=== PATIENT | female | born 1940 | race Caucasian/White ===

== ENCOUNTER 2023-05-06 11:06 | Outpatient (OUT) | payer MEDICARE, OTHER, SELFPAY ==
[2023-05-06 11:26] LABS: Basophils Percent Auto 0.6 % (0.2-2.0); Eosinophils Absolute Auto 0.1 10^3/uL (0.0-0.7); Hematocrit 35.9 % (36.0-48.0); Hemoglobin 11.4 g/dL (12.0-16.0); Immature Granulocytes Abs Auto 0.01 10^3/uL (0.00-0.03); Immature Granulocytes Pct Auto 0.1 % (0.0-0.5); Lymphocytes Absolute Auto 1.1 10^3/uL (1.2-3.8); Lymphocytes Percent Auto 15.9 % (20.5-60.0); Mean Corpuscular HGB Conc 31.8 g/dL (29.9-35.2); Mean Corpuscular Hemoglobin 33.1 pg (26.7-34.0); Mean Corpuscular Volume 104.4 fL (81.0-99.0); Mean Platelet Volume 9.1 fL (9.5-13.5); Monocytes Absolute Auto 0.9 10^3/uL (0.3-0.8); Monocytes Percent Auto 13.1 % (1.7-12.0); Neutrophils Percent Auto 69.3 % (43.0-75.0); Platelet Count 165 10^3/uL (150-450); Red Blood Count 3.44 10^6/uL (4.20-5.40); Red Cell Distribution Width 14.2 % (11.0-15.0); White Blood Count 7.2 10^3/uL (4.0-11.0)
[2023-05-06 12:19] LABS: Alanine Aminotransferase 20 U/L (14-59); Albumin Globulin Ratio 0.9; Albumin Level 3.7 g/dL (3.4-5.0); Alkaline Phosphatase 108 U/L (46-116); Anion Gap 9.4; Aspartate Amino Transferase 26 U/L (15-37); BUN Creatinine Ratio 22.9; Bilirubin Total 1.1 mg/dL (0.2-1.0); Calcium 9.2 mg/dL (8.5-10.1); Carbon Dioxide 34.7 mmol/L (21.0-32.0); Chloride 99 mmol/L (98-107); Chol HDL Ratio 2.1; Cholesterol 116 mg/dL (<=200); Estimated GFR (African America 47 (>=60); Estimated GFR (Non-African Ame 39 (>=60); Globulin 4.2 g/dL; Glucose 106 mg/dL (74-106); HDL Cholesterol 55 mg/dL (40-60); LDL Cholesterol Calculated 47.8 mg/dL; Potassium 3.1 mmol/L (3.5-5.1); Sodium 140 mmol/L (136-145); TSH W/ REFLEX FT4 2.364 uIU/mL (0.358-3.740); Total Protein 7.9 g/dL (6.4-8.2); Triglycerides 66 mg/dL (<=150); VLDL CHOLESTEROL 13.2 mg/dL
== END 2023-05-06 11:07 | disposition home or self-care (01) ==
LOC: LAB 11:12
PROVIDERS: PCP Internal Medicine; Visit Provider Internal Medicine
DX: R06.02 Shortness of breath (principal); I50.32 Chronic diastolic (congestive) heart failure; R53.82 Chronic fatigue, unspecified; E78.49 Other hyperlipidemia; I11.0 Hypertensive heart disease with heart failure
CPT/HCPCS: 36415; 80053; 80061; 83880; 84443; 85025

== ENCOUNTER 2023-05-16 13:09 | Outpatient (OUT) | payer MEDICARE, OTHER, SELFPAY ==
[2023-05-16 13:28] LABS: Basophils Percent Auto 0.6 % (0.2-2.0); Eosinophils Absolute Auto 0.1 10^3/uL (0.0-0.7); Eosinophils Percent Auto 1.9 % (0.9-7.0); Hematocrit 38.5 % (36.0-48.0); Hemoglobin 12.6 g/dL (12.0-16.0); Immature Granulocytes Abs Auto 0.01 10^3/uL (0.00-0.03); Immature Granulocytes Pct Auto 0.1 % (0.0-0.5); Lymphocytes Absolute Auto 1.8 10^3/uL (1.2-3.8); Lymphocytes Percent Auto 25.6 % (20.5-60.0); Mean Corpuscular HGB Conc 32.7 g/dL (29.9-35.2); Mean Corpuscular Hemoglobin 33.3 pg (26.7-34.0); Mean Corpuscular Volume 101.9 fL (81.0-99.0); Mean Platelet Volume 9.4 fL (9.5-13.5); Monocytes Absolute Auto 0.9 10^3/uL (0.3-0.8); Monocytes Percent Auto 12.6 % (1.7-12.0); Neutrophils Absolute Auto 4.1 10^3/uL (1.4-6.5); Neutrophils Percent Auto 59.2 % (43.0-75.0); Platelet Count 203 10^3/uL (150-450); Red Blood Count 3.78 10^6/uL (4.20-5.40); Red Cell Distribution Width 13.8 % (11.0-15.0); White Blood Count 6.9 10^3/uL (4.0-11.0)
[2023-05-16 15:05] LABS: Alanine Aminotransferase 24 U/L (14-59); Albumin Globulin Ratio 0.8; Albumin Level 3.8 g/dL (3.4-5.0); Alkaline Phosphatase 125 U/L (46-116); Anion Gap 12.7; Aspartate Amino Transferase 29 U/L (15-37); BUN Creatinine Ratio 20.6; Calcium 9.5 mg/dL (8.5-10.1); Carbon Dioxide 32.1 mmol/L (21.0-32.0); Chloride 99 mmol/L (98-107); Chol HDL Ratio 2.2; Cholesterol 127 mg/dL (<=200); Estimated GFR (African America 43 (>=60); Estimated GFR (Non-African Ame 36 (>=60); Globulin 4.7 g/dL; Glucose 117 mg/dL (74-106); HDL Cholesterol 58 mg/dL (40-60); LDL Cholesterol Calculated 54.6 mg/dL; Potassium 3.8 mmol/L (3.5-5.1); Sodium 140 mmol/L (136-145); TSH W/ REFLEX FT4 1.666 uIU/mL (0.358-3.740); Total Protein 8.5 g/dL (6.4-8.2); Triglycerides 72 mg/dL (<=150); VLDL CHOLESTEROL 14.4 mg/dL
== END 2023-05-16 13:10 | disposition home or self-care (01) ==
LOC: LAB 13:09
PROVIDERS: PCP Internal Medicine; Visit Provider Internal Medicine
DX: R06.02 Shortness of breath (principal); I50.32 Chronic diastolic (congestive) heart failure; I11.0 Hypertensive heart disease with heart failure; R53.82 Chronic fatigue, unspecified; E78.49 Other hyperlipidemia
CPT/HCPCS: 36415; 80053; 80061; 83880; 84443; 85025

== ENCOUNTER 2023-05-22 08:25 | Outpatient (OUT) | payer MEDICARE, OTHER, SELFPAY ==
--- NOTE | 2023-05-22 | PCN_ITS ---
CARDIAC STRESS TEST Requesting Physician: Procedure Date: 05/22/2023 This was a Lexiscan stress test with myocardial perfusion imaging performed at the [facility] on 05/22/2023. Informed consent was obtained. An intravenous line was secured. Baseline ECG and vital signs were obtained. Lexiscan 0.4 mg was injected intravenously, followed by administration of Cardiolite. The patient then went on to obtain myocardial perfusion imaging. Resting heart rate was 85 BPM and maximum heart rate was 95 BPM. The resting blood pressure was 150/74 and maximum blood pressure was 150/74. Resting ECG showed evidence of atrial fibrillation with a controlled ventricular response. There were non-specific ST abnormalities at baseline. ECG following infusion of Lexiscan showed evidence of atrial fibrillation with occasional PVCs versus aberrantly conducted complexes. There was evidence of worsening of baseline ECG abnormalities with near [address] segment depressions noted in leads 2, 3, AVF, V5 and V6. Final ECG was comparable to baseline. IMPRESSION: 1. Equivocal stress test for Lexiscan induced ischemia due to baseline ECG abnormalities. There was slight worsening of the ST segment depressions seen with Lexiscan infusion. 2. Myocardial perfusion images will be reported separately. [facility]
--- NOTE | 2023-05-22 08:05 | NM_ITS ---
Patient Name: RICK HERNANDEZ MR#: [id number] : 1940 Exam Date: 05/22/2023 Ordering Doctor: DR HERBER ALLEN M.D. RADIOLOGY REPORT PROCEDURE: NM CARLITOS PERF SPECT REST STR COMPARISON: None. INDICATIONS: CORONARY ARTERY DISEASE, DYSPNEA TECHNIQUE: Exam Description: Stress/Rest one day protocol gated SPECT Rest Imagin.2 mCi Tc-99m Cardiolite IV on 05/22/2023 Stress Imaging 30.2 mCi Tc-99m Cardiolite IV on 05/22/2023 Exercise Protocol: 0.4 mg Lexiscan given IV Heart Rate (bpm): Rest: 85 Max: 95 PMHR: 70 Blood Pressure: Rest: 128/56 Max: 132/64 Symptoms: Rest and peak stress ECG findings were pending and the exercise portion of the study was pending per attending physician Dr. HIGGINS . For more details please see separate cardiac stress test report. FINDINGS: QUALITY OF STUDY: Excellent. PERFUSION DEFECT: None. LOCATION: N/A SIZE: N/A. SEVERITY: N/A. TYPE: N/A. WALL MOTION: Normal. LV SIZE: Normal. 63 mL. TID / TCD: None; 1.0 LVEF: Normal. Calculated EF 75%. SUMMARY: Myocardial perfusion imaging study is NORMAL. CONCLUSION: 1. No acute or reversible ischemia. 2. Suspect breast attenuation artifact affecting the anterior wall of the heart rather than mild fixed ischemia. 3. Normal wall motion, left ventricle size, and ejection fraction. Dictated by: Karsten Xavier M.D. on 05/23/2023 at 13:14 Approved by: Karsten Xavier M.D. on 05/23/2023 at 14:04
--- OUTSIDE RECORDS SUMMARY | 2023-05-22 08:28 | XMS_ITS | CCD ---
Author Organization [facility] Care Team Providers Care Manager [employer] Name Role Phone EDU ODONNELL Referring Unavailable BLAS, EDU Primary Care Unavailable ERASTO CANALES Admitting Unavailable AJ, FLORENTINO Attending Unavailable [place] Procedure Practitioner Unavailab le UNKNOWN, PROVIDER Surgeon Unavailable [place] Procedure Practitioner Unavailab le NAWRAS ALI T Surgeon Unavailable [place] Procedure Practitioner Unavailab le AJ, FLORENTINO Surgeon Unavailable KENNEDI MARSHALL Admitting Unavailable BLAS, EDU Primary Care Unavailable SELF, REFERRED Referring Unavailable MEGHAN HEAD Attending Unava ilable [place] Procedure Practitioner Unavailab le KEVON COLON Surgeon Unavailable DEAN, LOGAN K Attending Unavailable DEAN, LOGAN K Consulting Unavailable DEAN, LOGAN K Admitting Unavailable BLAS, DR SALAMANCA Primary Care Unavailable MOUKARBEL, DR CRAVEN Admitting Unavailable MOUKARBEL, DR CRAVEN Attending Unavailable MOUKARBEL, DR CRAVEN Consulting Unavailable HOUSE, DR SALAMANCA Primary Care Unavailable HOUSE, DR SALAMANCA Primary Care Unavailable MOUKARBEL, DR CRAVEN Admitting Unavailable MOUKARBEL, DR CRAVEN Attending Unavailable MOUKARBEL, DR CRAVEN Consulting Unavailable PETR LUGO Attending Unavailable PETR LUGO Consulting Unavailable PETR LUGO Admitting Unavailable HOUSE, DR SALAMANCA Primary Care Unavailable PETR LUGO Consulting Unavailable PETR LUGO Admitting Unavailable HOUSE, DR SALAMANCA Primary Care Unavailable PETR LUGO Attending Unavailable BLAS, DR SALAMANCA Primary Care Unavailable MOUKARBEL, DR CRAVEN Admitting Unavailable MOUKARBEL, DR CRAVEN Attending Unavailable HOUSE, DR SALAMANCA Primary Care Unavailable MOUKARBEL, DR CRAVEN Attending Unavailable MOUKARBEL, DR CRAVEN Admitting Unavailable DAEN, LOGAN K Attending Unavailable DEAN, LOGAN K Consulting Unavailable DEAN, LOGAN K Admitting Unavailable BLAS, DR SALAMANCA Primary Care Unavailable MISC, DR PROCTOR Attending Unavailable MISC, DR PROCTOR Consulting Unavailable MISC, DR PROCTOR Admitting Unavailable HOUSE, DR SALAMANCA Primary Care Unavailable SHAIKH QUILES Attending Unavailable HERBER ALLEN Attending Unavailable Allergies Allergy Classification Reported Allergen(s) Allergy Type Date of Onset Reaction(s) Facility (3 sources) Furosemide Drug Allergy 12-17-2018 [facility] Repository (2 sources) Penicillins; Translations: [PENICILLINS] Drug allergy (disorder) 12-29-2008 [facility] Repository (3 sources) Sulfonamides (Antibiotic); Translations: [SULFA (SULFONAMIDE ANTIBIOTICS)] Drug allergy (disorder) 12-17-2018 [facility] Repository (1 source) Penicillin Drug Allergy [facility] Repository (1 source) Furosemide; Translations: [FUROSEMIDE] Drug Allergy 02-01-2022 [facility] Repository Problems Active Problems Problem Classification Problem Date Documented Date Episodic/Chronic Cataract (8 sources) Age-related nuclear cataract, right eye; Translations: [Age-related nuclear cataract, left eye] Onset: 2 Chronic Chronic kidney disease (2 sources) Chronic kidney disease; Translations: [Chronic kidney disease, stage 3b] Onset: 4 Congestive heart failure; nonhypertensive (14 sources) Acute on chronic diastolic (congestive) heart failure; Translations: [Chronic diastolic (congestive) heart failure] Onset: 2 Chronic Coronary atherosclerosis and other heart disease (3 sources) 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; Translations: [Atherosclerotic heart disease of stebbins coronary artery with other forms of angina pectoris] Onset: 2 Chronic Coronary atherosclerosis and other heart disease (3 sources) Presence of aortocoronary bypass graft; Translations: [PRESENCE AORTOCORONARY BYPASS GRAFT] Onset: 2 Episodic Disorders of lipid metabolism (1 source) Pure hypercholesterolemia, unspecified; Translations: [PURE HYPERCHOLESTEROLEMIA UNSPEC] Onset: 2 Chronic Essential hypertension (3 sources) Essential (primary) hypertension; Translations: [ESSENTIAL PRIMARY HYPERTENSION] Onset: 2 Chronic Other lower respiratory disease (2 sources) Shortness of breath; Translations: [Shortness of breath] Onset: 4 Episodic Residual codes; unclassified (1 source) Acquired absence of both cervix and uterus; Translations: [ACQUIRED ABSENCE BOTH CERVIX AND UTERUS] Onset: 2 Episodic Unclassified (2 sources) Permanent atrial fibrillation; Translations: [Permanent atrial fibrillation] Onset: 4 Past or Other Problems Problem Classification Problem Date Documented Da te Episodic/Chronic Other and unspecified benign neoplasm (1 source) Hemangioma unspecified site; Translations: [HEMANGIOMA UNSPECIFIED SITE] Onset: 04-03-2021 Episodic Other skin disorders (4 sources) Sebaceous cyst; Translations: [SEBACEOUS CYST] Onset: 03-28-2021 Episodic Results Test Name Value Interpretation Reference Range Facility Office Visiton 05-06-2023 Follow-up visit [id number] Jenifer Hernandez [place] 1940 F Date Provider Department Center 05/06/2023 HERBER BERMUDEZ [facility] Family History Problem Relation Age of Onset Other Father Stroke Brother Family Status - Relation Status Age at Father Brother Level of Service:53876 [place] OFFICE/OUTPATIENT ESTABLISHED MOD MDM 30 MIN Normal [facility] PROF CHEM 8 (BAS METB)on Anion gap [Moles/Vol] 13.7 mmol/L Normal [facility] Comment on above: Performed By: #### B MP #### [facility] [address] [address] [address] Vega Sorensen Calcium [Mass/Vol] 9.2 mg/dL Normal 8.5-10.1 [facility] Comment on above: Performed By: #### B MP #### [facility] [address] [address] [address] Vega Sorensen Chloride [Moles/Vol] 100 mmol/L Normal 98-107 [facility] Comment on above: Performed By: #### B MP #### [facility] [address] [address] [address] Vega Sorensen CO2 [Moles/Vol] 30.2 mmol/L Normal 21.0-32.0 [facility] Comment on above: Performed By: #### B MP #### [facility] [address] [address] [address] Vega Sorensen Creatinine [Mass/Vol] 1.69 mg/dL Critically high 0.55-1.02 [facility] Comment on above: Performed By: #### B MP #### [facility] [address] [address] [address] Vega Sorensen EGFR-AF TONGAN 35 mL/min/1.73m2 Critically low >=60 [facility] Comment on above: Performed By: #### B MP #### [facility] [address] [address] [address] Vega Sorensen EGFR-NON AF TONGAN 29 mL/min/1.73m2 Critically low >=60 [facility] Comment on above: Performed By: #### B MP #### [facility] [address] [address] [address] Vega Sorensen Glucose [Mass/Vol] 162 mg/dL Critically high 74-106 [facility] Comment on above: Performed By: #### B MP #### [facility] [address] [address] [address] Vega Sorensen Potassium [Moles/Vol] 3.9 mmol/L Normal 3.5-5.1 [facility] Comment on above: Performed By: #### B MP #### [facility] [address] [address] [address] Vega Sorensen Sodium [Moles/Vol] 140 mmol/L Normal 136-145 [facility] Comment on above: Performed By: #### B MP #### [facility] [address] [address] [address] Vega Sorensen Urea nitrogen [Mass/Vol] 36.0 mg/dL Critically high 7.0-18.0 [facility] Comment on above: Performed By: #### B MP #### [facility] [address] [address] [address] Vega Sorensen Urea nitrogen/Creatinine [Mass ratio] 21.3 mg/mg Normal [facility] Comment on above: Performed By: #### B MP #### [facility] [address] [address] [address] Vega Sorensen PROF CHEM 8 (BAS METB)on Anion gap [Moles/Vol] 14.6 mmol/L Normal [facility] Comment on above: Performed By: #### B MP ####[facility] [address] [id number]. Vega Sorensen Calcium [Mass/Vol] 9.1 mg/dL Normal 8.5-10.1 [facility] Comment on above: Performed By: #### B MP ####[facility] [address] [id number]. Angelawinsome Edu Chloride [Moles/Vol] 99 mmol/L Normal 98-107 [facility] Comment on above: Performed By: #### B MP ####[facility] [address] [id number]. Vega Edu CO2 [Moles/Vol] 28.8 mmol/L Normal 21.0-32.0 [facility] Comment on above: Performed By: #### B MP ####[facility] [address] [address]Dr. Angelawinsome Edu Creatinine [Mass/Vol] 1.63 mg/dL Critically high 0.55-1.02 [facility] Comment on above: Performed By: #### B MP ####[facility] [address] [address]Dr. Angelawinsome Edu EGFR-AF TONGAN 37 mL/min/1.73m2 Critically low >=60 [facility] Comment on above: Performed By: #### B MP ####[facility] [address] [address]Dr. Vega Sorensen EGFR-NON AF TONGAN 30 mL/min/1.73m2 Critically low >=60 [facility] Comment on above: Performed By: #### B MP ####[facility] [address] [id number]. Vega Sorensen Glucose [Mass/Vol] 143 mg/dL Critically high 74-106 [facility] Comment on above: Performed By: #### B MP ####[facility] [address] [id number]. Vega Sorensen Potassium [Moles/Vol] 3.4 mmol/L Critically low 3.5-5.1 [facility] Comment on above: Performed By: #### B MP ####[facility] [address] [address]Dr. Vega Sorensen Sodium [Moles/Vol] 139 mmol/L Normal 136-145 [facility] Comment on above: Performed By: #### B MP ####[facility] [address] [address]Dr. Vega Sorensen Urea nitrogen [Mass/Vol] 38.0 mg/dL Critically high 7.0-18.0 [facility] Comment on above: Performed By: #### B MP ####[facility] [address] [address]Dr. Vega Sorensen Urea nitrogen/Creatinine [Mass ratio] 23.3 mg/mg Normal [facility] Comment on above: Performed By: #### B MP ####[facility] [address] [address]Dr. Vega Sorensen BNPon 08-18-2021 Natriuretic peptide B (Bld) [Mass/Vol] 5150.0 pg/mL Critically high <=1,800.0 [facility] Comment on above: Performed By: #### B MP, BNP #### [facility] [address] [place] [address] Dr. Vega Sorensen PROF CHEM 8 (BAS METB)on Anion gap [Moles/Vol] 12.9 mmol/L Normal [facility] Comment on above: Performed By: #### B MP, BNP #### [facility] [address] [place] [address] Dr. Vega Sorensen Calcium [Mass/Vol] 9.0 mg/dL Normal 8.5-10.1 [facility] Comment on above: Performed By: #### B MP, BNP #### [facility] [address] [place] [address] Dr. Vega Sorensen Chloride [Moles/Vol] 102 mmol/L Normal 98-107 [facility] Comment on above: Performed By: #### B MP, BNP #### [facility] [address] [address] [address] Vega Sorensen CO2 [Moles/Vol] 30.2 mmol/L Normal 21.0-32.0 [facility] Comment on above: Performed By: #### B MP, BNP #### [facility] [address] [address] [address] Vega Sorensen Creatinine [Mass/Vol] 1.90 mg/dL Critically high 0.55-1.02 [facility] Comment on above: Performed By: #### B MP, BNP #### [facility] [address] [address] [address] Vega Sorensen EGFR-AF TONGAN 31 mL/min/1.73m2 Critically low >=60 [facility] Comment on above: Performed By: #### B MP, BNP #### [facility] [address] [place] [address] Dr. Veag Sorensen EGFR-NON AF TONGAN 25 mL/min/1.73m2 Critically low >=60 [facility] Comment on above: Performed By: #### B MP, BNP #### [facility] [address] [address] [address] Vega Sorensen Glucose [Mass/Vol] 121 mg/dL Critically high 74-106 [facility] Comment on above: Performed By: #### B MP, BNP #### [facility] [address] [place] [address] Dr. Vega Sorensen Potassium [Moles/Vol] 4.1 mmol/L Normal 3.5-5.1 [facility] Comment on above: Performed By: #### B MP, BNP #### [facility] [address] [address] [address] Vega Sorensen Sodium [Moles/Vol] 141 mmol/L Normal 136-145 [facility] Comment on above: Performed By: #### B MP, BNP #### [facility] [address] [place] [address] Dr. Vega Sorensen Urea nitrogen [Mass/Vol] 34.0 mg/dL Critically high 7.0-18.0 [facility] Comment on above: Performed By: #### B MP, BNP #### [facility] [address] [address] [address] Vega Sorensen Urea nitrogen/Creatinine [Mass ratio] 17.9 mg/mg Normal [facility] Comment on above: Performed By: #### B MP, BNP #### [facility] [address] [address] [address] Veag Castaneda 03-30-2021 L ---- Specimen: [id number] Received: 03/30/21 Status: JORGE Chelly Num: [id number] Spec Type: Surgical Subm Dr: Chad Yeboah MD Tissues: A Soft Tissue/Surgical Margin-Other than Tumor,Mass,Lip or Rosita (ANTERIOR ORBIT Procedures: HE Stain, Gross/Micro L4 Patient Age/Sex Location Account Attending Physician Jenifer Hernandez 80/F [place] [id number] Chad Yeboah MD SPEC NUM: [id number] RECD: 03/30/21 STATUS: JORGE SPAULDING NUM: [id number] RACHAEL: 03/30/21 DR: Chad Yeboah MD ENTERED: 03/30/21 [facility] DR: SPEC TYPE: Surgical DEPT: S ORDERED: HE Stain, Gross/Micro L4 ORDERED: HE Stain, Gross/Micro L4 Pathological Diagnosis Right lower eyelid lesion, anterior orbitotomy: - Basal cell carcinoma, nodular type with focal cystic change, focally present at the margin. NOTE: Immunohistochemical studies of CK 7, BARBARA and special stain of PAS have been performed. The lesion is negative for CK 7, BARBARA and PAS. The histomorphology and immunoprofile support the above diagnosis. This case has been reviewed by a second pathologist, who concurs with the above diagnosis. Clinical Information Large sebaceous cyst versus hemangioma RLL Gross Description Received in formalin labeled with the patient's name, number and anterior orbitotomy RLL with biopsy are 2 perry-pink tissue fragments that measure 0.4 cm and 1.3 cm. Due to the fragmentation, the resection margin is indeterminate. Sectioning of the largest tissue fragment reveals perry-white, firm and smooth cut surfaces. Entirely submitted in one cassette labeled A1. Type of Fixative: 10% Neutral Buffered Formalin (TAMMI/YConnie) Specimen: [id number] Received: 03/30/21 Status: JORGE [place]wellgale Num: [id number] Spec Type: Surgical Subm Dr: Chad Yeboah MD Tissues: A Soft Tissue/Surgical Margin-Other than Tumor,Mass,Lip or Rosita (ANTERIOR ORBIT Procedures: HE Stain, Gross/Micro L4 Patient: Jenifer Hernandez [id number] (Continued) Specimen: [id number] Received: 03/30/21 (Continued) Signed (signature on file) Mili Peguero MD 03/31/21 1648 Specimen: [id number] Received: 03/30/21 Status: JORGE Spaulding Num: [id number] Spec Type: Surgical Subm Dr: Chad Yeboah MD Tissues: A Soft Tissue/Surgical Margin-Other than Tumor,Mass,Lip or Rosita (ANTERIOR ORBIT Procedures: HE Stain, Gross/Micro L4 Patient: Jenifer Hernandez [id number] (Continued) Specimen: [id number] Received: 03/30/21 (Continued) Microscopic Description One glass slide with H E stained material, two IHC stained slides and one PAS stained slide have been examined. The microscopic findings support the above pathologic diagnosis. ANALYTE SPECIFIC REAGENT (ASR) DISCLAIMER: The use of one or more reagents in the above tests is regulated as an analyte specific reagent (ASR). The performance characteristics were determined by the [facility]. Immunohistochemistry assays have not been validated on decalcified tissue. Results should be interpreted with caution given the possibility of false negative results on decalcified specimens. They have not been cleared by the [place] Food and Drug Administration. The FDA has determined that such clearance or approval is not necessary. CPT Codes 22802, 55824, 36818, 02897 Specimen: [id number] Received: 03/30/21 Status: JORGE [place] Num: [id number] Spec Type: Surgical Subm Dr: Chad Yeboah MD Tissues: A Soft Tissue/Surgical Margin-Other than Tumor,Mass,Lip or Rosita (ANTERIOR ORBIT Procedures: HE Stain, Gross/Micro L4 Patient: Jenifer Hernandez [id number] (Continued) (more content not included)... Normal [facility] CBC AUTO DIFFon 03-28-2021 BASO # 0.0 103/ul Normal 0.0-0.1 [facility] Comment on above: Performed By: #### C BC #### [facility] [address] [address] [address] Vega Sorensen Basophils/100 WBC (Bld) 0.5 % Normal 0.2-2.0 [facility] Comment on above: Performed By: #### C BC #### [facility] [address] [address] [address] Vega Sorensen EO # 0.1 103/ul Normal 0.0-0.7 [facility] Comment on above: Performed By: #### C BC #### [facility] [address] [address] [address] Vega Sorensen Eosinophils/100 WBC (Bld) 1.5 % Normal 0.9-7.0 [facility] Comment on above: Performed By: #### C BC #### [facility] [address] [address] [address] Vega Sorensen Erythrocyte distribution width (RBC) [Ratio] 13.7 % Normal 11.0-15.0 [facility] Comment on above: Performed By: #### C BC #### [facility] [address] [place] [address] Dr. Vega Sorensen Hematocrit (Bld) [Volume fraction] 38.1 % Normal 36.0-48.0 [facility] Comment on above: Performed By: #### C BC #### [facility] [address] [place] [address] Dr. Vega Soresnen Hemoglobin (Bld) [Mass/Vol] 12.5 g/dL Normal 12.0-16.0 [facility] Comment on above: Performed By: #### C BC #### [facility] [address] [place] [address] Dr. Vega Sorensen IG # 0.03 10e3/ul Normal 0.00-0.03 [facility] Comment on above: Performed By: #### C BC #### [facility] [address] [place] [address] Dr. Vega Sorensen IG % 0.4 % Normal 0.0-0.5 [facility] Comment on above: Performed By: #### C BC #### [facility] [address] [place] [address] Dr. Vega Sorensen LYMPH # 1.4 103/ul Normal 1.2-3.8 [facility] Comment on above: Performed By: #### C BC #### [facility] [address] [place] [address] Dr. Vega Sorensen Lymphocytes/100 WBC (Bld) 18.7 % Critically low 20.5-60.0 [facility] Comment on above: Performed By: #### C BC #### [facility] [address] [place] [address] Dr. Vega Sorensen MANUAL DIFF REQ NO Normal [facility] Comment on above: Performed By: #### C BC #### [facility] [address] [place] [address] Dr. Vega Sorensen MCH (RBC) [Entitic mass] 34.0 pg Normal 26.7-34.0 [facility] Comment on above: Performed By: #### C BC #### [facility] [address] [address] [address] Vega Sorensen MCHC (RBC) [Mass/Vol] 32.8 g/dL Normal 29.9-35.2 [facility] Comment on above: Performed By: #### C BC #### [facility] [address] [address] [address] Vega Sorensen MCV (RBC) [Entitic vol] 103.5 fL Critically high 81.0-99.0 [facility] Comment on above: Performed By: #### C BC #### [facility] [address] [address] [address] Vega Sorensen MONO # 1.0 103/ul Critically high 0.3-0.8 [facility] Comment on above: Performed By: #### C BC #### [facility] [address] [address] [address] Vega Sorensen Monocytes/100 WBC (Bld) 12.8 % Critically high 1.7-12.0 [facility] Comment on above: Performed By: #### C BC #### [facility] [address] [address] [address] Vega Sorensen NEUT # 5.0 103/ul Normal 1.4-6.5 [facility] Comment on above: Performed By: #### C BC #### [facility] [address] [address] [address] Vega Sorensen Neutrophils/100 WBC (Bld) 66.1 % Normal 43.0-75.0 [facility] Comment on above: Performed By: #### C BC #### [facility] [address] [address] [address] Vega Sorensen Platelet mean volume (Bld) [Entitic vol] 9.2 fL Critically low 9.5-13.5 [facility] Comment on above: Performed By: #### C BC #### [facility] [address] [address] [address] Vega Sorensen PLT 180 103/ul Normal 150-450 [facility] Comment on above: Performed By: #### C BC #### [facility] [address] [place] [address] Dr. Vega Sorensen RBC 3.68 106/ul Critically low 4.20-5.40 [facility] Comment on above: Performed By: #### C BC #### [facility] [address] [place] [address] Dr. Vega Sorensen WBC 7.5 103/ul Normal 4.0-11.0 [facility] Comment on above: Performed By: #### C BC #### [facility] [address] [place] [address] Dr. Vega Sroensen BNPon 03-07-2021 Natriuretic peptide B (Bld) [Mass/Vol] 2297.0 pg/mL Critically high <=1,800.0 [facility] Comment on above: Performed By: #### B MP, BNP #### [facility] [address] [place] [address] Dr. Vega Sorensen PROF CHEM 8 (BAS METB)on Anion gap [Moles/Vol] 10.0 mmol/L Normal [facility] Comment on above: Performed By: #### B MP, BNP #### [facility] [address] [place] [address] Dr. Vega Sorensen Calcium [Mass/Vol] 9.1 mg/dL Normal 8.4-10.2 [facility] Comment on above: Performed By: #### B MP, BNP #### [facility] [address] [place] [address] Dr. Vega Sorensen Chloride [Moles/Vol] 101 mmol/L Normal 98-107 [facility] Comment on above: Performed By: #### B MP, BNP #### [facility] [address] [place] [address] Dr. Vega Sorensen CO2 [Moles/Vol] 31.8 mmol/L Critically high 22.0-30.0 [facility] Comment on above: Performed By: #### B MP, BNP #### [facility] [address] [place] [address] Dr. Vega Sorensen Creatinine [Mass/Vol] 1.70 mg/dL Critically high 0.52-1.04 [facility] [facility] Comment on above: Performed By: #### B MP, BNP #### [facility] [address] [place] [address] Dr. Vega Sorensen EGFR-AF TONGAN 35 mL/min/1.73m2 Critically low >=60 [facility] Comment on above: Performed By: #### B MP, BNP #### [facility] [address] [place] [address] Dr. Vega Sorensen EGFR-NON AF TONGAN 29 mL/min/1.73m2 Critically low >=60 [facility] Comment on above: Performed By: #### B MP, BNP #### [facility] [address] [place] [address] Dr. Vega Sorensen Glucose [Mass/Vol] 160 mg/dL Critically high 74-106 [facility] Comment on above: Performed By: #### B MP, BNP #### [facility] [address] [place] [address] Dr. Vega Sorensen Potassium [Moles/Vol] 3.8 mmol/L Normal 3.4-5.0 [facility] Comment on above: Performed By: #### B MP, BNP #### [facility] [address] [place] [address] Dr. Vega Sorensen Sodium [Moles/Vol] 139 mmol/L Normal 137-145 [facility] Comment on above: Performed By: #### B MP, BNP #### [facility] [address] [place] [address] Dr. Vega Sorensen Urea nitrogen [Mass/Vol] 36.0 mg/dL Critically high 7.0-17.0 [facility] Comment on above: Performed By: #### B MP, BNP #### [facility] [address] [place] [address] Dr. Vega Sorensen Urea nitrogen/Creatinine [Mass ratio] 21.2 mg/mg Normal [facility] Comment on above: Performed By: #### B MP, BNP #### [facility] [address] [place] [address] Dr. Vega Sorensen BASIC METABOLIC PANELon 11-2 Calcium [Mass/Vol] 8.7 mg/dL Normal 8.6-10.3 [facility] Comment on above: Order Comment: No: D o not add to previous draw Performed By: #### 0 0071, 45595, 30255, 56405 #### [facility] [address] [place] [address], [place] Chloride [Moles/Vol] 95 mmol/L Low 98-107 [facility] Comment on above: Order Comment: No: D o not add to previous draw Performed By: #### 0 0071, 17212, 81254, 09429 #### [facility] [address] [place] [address], [place] CO2 [Moles/Vol] 33 mmol/L High 21-31 [facility] Comment on above: Order Comment: No: D o not add to previous draw Performed By: #### 0 0071, 36508, 15942, 92807 #### [facility] [address] [place] [address], [place] Creatinine [Mass/Vol] 1.21 mg/dL High 0.60-1.20 [facility] Comment on above: Order Comment: No: D o not add to previous draw Performed By: #### 0 0071, 32952, 99800, 81182 #### [facility] [address] [place] [address], [place] GFR/1.73 sq M predicted among blacks MDRD (S/P/Bld) [Vol rate/Area] 52 ml/min/1.73sq m Abnormal >60 [facility] Comment on above: Order Comment: No: D o not add to previous draw Result Comment: Calc ulation may not be valid for patients over 70 years Performed By: #### 0 0071, 38347, 83731, 60858 #### [facility] [address] [place] [address], [place] GFR/1.73 sq M predicted among non-blacks MDRD (S/P/Bld) [Vol rate/Area] 43 ml/min/1.73sq m Abnormal >60 [facility] Comment on above: Order Comment: No: D o not add to previous draw Result Comment: Calc ulation may not be valid for patients over 70 years Performed By: #### 0 0071, 28291, 57781, 46272 #### [facility] [address] [place] [address], [place] Glucose [Mass/Vol] 105 mg/dL High 70-100 [facility] Comment on above: Order Comment: No: D o not add to previous draw Performed By: #### 0 0071, 37631, 31703, 38614 #### [facility] [address] [place] [address], [place] Potassium [Moles/Vol] 3.2 mmol/L Low 3.5-5.1 [facility] Comment on above: Order Comment: No: D o not add to previous draw Performed By: #### 0 0071, 38457, 79862, 63677 #### [facility] [address] [place] [address], [place] Sodium [Moles/Vol] 134 mmol/L Low 136-145 [facility] Comment on above: Order Comment: No: D o not add to previous draw Performed By: #### 0 0071, 11810, 14990, 99146 #### [facility] [address] [place] [address], [place] Urea nitrogen [Mass/Vol] 22 mg/dL Normal 7-25 [facility] Comment on above: Order Comment: No: D o not add to previous draw Performed By: #### 0 0071, 00353, 61344, 07344 #### [facility] [address] [place] [address], [place] Calcium [Mass/Vol] 8.5 mg/dL Low 8.6-10.3 [facility] Comment on above: Order Comment: No: D o not add to previous draw Performed By: #### 0 0071, 19345, 82375, 26631 #### [facility] [address] [place] [address], [facility] Chloride [Moles/Vol] 95 mmol/L Low 98-107 [facility] Comment on above: Order Comment: No: D o not add to previous draw Performed By: #### 0 0071, 04609, 90721, 38373 #### [facility] [address] [place] [address], [facility] CO2 [Moles/Vol] 34 mmol/L High 21-31 [facility] Comment on above: Order Comment: No: D o not add to previous draw Performed By: #### 0 0071, 73602, 68186, 56586 #### [facility] [address] [place] [address], [facility] Creatinine [Mass/Vol] 1.15 mg/dL Normal 0.60-1.20 [facility] Comment on above: Order Comment: No: D o not add to previous draw Performed By: #### 0 0071, 72164, 31980, 38409 #### [facility] [address] [place] [address], [facility] GFR/1.73 sq M predicted among blacks MDRD (S/P/Bld) [Vol rate/Area] 55 ml/min/1.73sq m Abnormal >60 [facility] Comment on above: Order Comment: No: D o not add to previous draw Result Comment: Calc ulation may not be valid for patients over 70 years Performed By: #### 0 0071, 51803, 85508, 81940 #### [facility] [address] [place] [address], [facility] GFR/1.73 sq M predicted among non-blacks MDRD (S/P/Bld) [Vol rate/Area] 45 ml/min/1.73sq m Abnormal >60 [facility] Comment on above: Order Comment: No: D o not add to previous draw Result Comment: Calc ulation may not be valid for patients over 70 years Performed By: #### 0 0071, 63928, 89081, 34320 #### [facility] [address] [place] [address], [place] Glucose [Mass/Vol] 109 mg/dL High 70-100 [facility] Comment on above: Order Comment: No: D o not add to previous draw Performed By: #### 0 0071, 51248, 03696, 83995 #### [facility] [address] [place] [address], [place] Potassium [Moles/Vol] 2.8 mmol/L Low 3.5-5.1 [facility] Comment on above: Order Comment: No: D o not add to previous draw Performed By: #### 0 0071, 21069, 80380, 92920 #### [facility] [address] [place] [address], [facility] Sodium [Moles/Vol] 136 mmol/L Normal 136-145 [facility] Comment on above: Order Comment: No: D o not add to previous draw Performed By: #### 0 0071, 97065, 47364, 84160 #### [facility] [address] [place] [address], [place] Urea nitrogen [Mass/Vol] 26 mg/dL High 7-25 [facility] Comment on above: Order Comment: No: D o not add to previous draw Performed By: #### 0 0071, 45922, 48451, 67444 #### [facility] [address] [place] [address], [place] MAGNESIUM BLOODon 01-14-2019 Magnesium [Mass/Vol] 2.1 mg/dL Normal 1.9-2.7 [facility] Comment on above: Order Comment: No: D o not add to previous draw Performed By: #### 0 0071, 92691, 48117, 43277 #### [facility] [address] [place] [address], [place] Magnesium [Mass/Vol] 1.6 mg/dL Low 1.9-2.7 [facility] Comment on above: Order Comment: No: D o not add to previous draw Performed By: #### 0 0071, 78216, 76516, 79850 #### [facility] [address] [place] [address], [facility] BASIC METABOLIC PANELon 11-2 Calcium [Mass/Vol] 8.6 mg/dL Normal 8.6-10.3 [facility] Comment on above: Order Comment: No: D o not add to previous draw Performed By: #### 0 0071, 49614, 46943, 10159 #### [facility] [address] [place] [address], [facility] Chloride [Moles/Vol] 96 mmol/L Low 98-107 [facility] Comment on above: Order Comment: No: D o not add to previous draw Performed By: #### 0 0071, 15636, 78236, 43475 #### [facility] [address] [place] [address], [facility] CO2 [Moles/Vol] 34 mmol/L High 21-31 [facility] Comment on above: Order Comment: No: D o not add to previous draw Performed By: #### 0 0071, 99658, 20939, 40845 #### [facility] [address] [place] [address], [facility] Creatinine [Mass/Vol] 0.97 mg/dL Normal 0.60-1.20 [facility] Comment on above: Order Comment: No: D o not add to previous draw Performed By: #### 0 0071, 25331, 94420, 71213 #### [facility] [address] [place] [address], [facility] GFR/1.73 sq M predicted among blacks MDRD (S/P/Bld) [Vol rate/Area] mL/min/{1.73_m2} Normal >60 [facility] Comment on above: Order Comment: No: D o not add to previous draw Result Comment: Calc ulation may not be valid for patients over 70 years Performed By: #### 0 0071, 04564, 63493, 82893 #### [facility] [address] [place] [address], [place] GFR/1.73 sq M predicted among non-blacks MDRD (S/P/Bld) [Vol rate/Area] 55 ml/min/1.73sq m Abnormal >60 [facility] Comment on above: Order Comment: No: D o not add to previous draw Result Comment: Calc ulation may not be valid for patients over 70 years Performed By: #### 0 0071, 02492, 27622, 26436 #### [facility] [address] [place] [address], [place] Glucose [Mass/Vol] 93 mg/dL Normal 70-100 [facility] Comment on above: Order Comment: No: D o not add to previous draw Performed By: #### 0 0071, 93012, 84669, 22632 #### [facility] [address] [place] [address], [place] Potassium [Moles/Vol] 3.4 mmol/L Low 3.5-5.1 [facility] Comment on above: Order Comment: No: D o not add to previous draw Performed By: #### 0 0071, 40864, 12525, 53757 #### [facility] [address] [place] [address], [place] Sodium [Moles/Vol] 138 mmol/L Normal 136-145 [facility] Comment on above: Order Comment: No: D o not add to previous draw Performed By: #### 0 0071, 08281, 04545, 06330 #### [facility] [address] [place] [address], [place] Urea nitrogen [Mass/Vol] 23 mg/dL Normal 7-25 [facility] Comment on above: Order Comment: No: D o not add to previous draw Performed By: #### 0 0071, 66532, 41877, 01490 #### [facility] [address] CBC COMPLETE BLOOD COUNTon 03-13-2018 Erythrocyte distribution width (RBC) [Ratio] Unable to calculate Normal 11.5-15.0 [facility] Comment on above: Order Comment: No: D o not add to previous draw Performed By: #### 0 0071, 44315, 05799, 05565 #### [facility] [address] [place] [address], [facility] Hematocrit (Bld) [Volume fraction] 29.9 % Low 36.0-45.0 [facility] Comment on above: Order Comment: No: D o not add to previous draw Performed By: #### 0 0071, 15800, 03536, 27984 #### [facility] [address] [place] [address], [facility] Hemoglobin (Bld) [Mass/Vol] 9.5 g/dL Low 12.0-15.0 [facility] Comment on above: Order Comment: No: D o not add to previous draw Performed By: #### 0 0071, 23879, 32818, 77703 #### [facility] [address] [place] [address], [facility] MCH (RBC) [Entitic mass] 30.6 pg Normal 27.0-33.0 [facility] Comment on above: Order Comment: No: D o not add to previous draw Performed By: #### 0 0071, 03032, 90133, 17110 #### [facility] [address] [place] [address], [facility] MCHC (RBC) [Mass/Vol] 31.8 g/dL Low 32.0-35.0 [facility] Comment on above: Order Comment: No: D o not add to previous draw Performed By: #### 0 0071, 81454, 45712, 57305 #### [facility] [address] MCV (RBC) [Entitic vol] 96.5 fL Normal 82.0-98.0 [facility] Comment on above: Order Comment: No: D o not add to previous draw Performed By: #### 0 0071, 32248, 73773, 74047 #### [facility] [address] [facility] [place] [address], [facility] Nucleated RBC/100 WBC (Bld) [Ratio] 0 % Normal 0-0 [facility] Comment on above: Order Comment: No: D o not add to previous draw Performed By: #### 0 0071, 90984, 74613, 73611 #### [facility] [address] [place] [address], [facility] PLAT CNT 209 10*3/uL Normal 150-400 [facility] Comment on above: Order Comment: No: D o not add to previous draw Performed By: #### 0 0071, 43753, 02673, 51803 #### [facility] [address] [place] [address], [facility] RBC (Bld) [#/Vol] 3.10 10*6/uL Low 3.80-5.00 [facility] Comment on above: Order Comment: No: D o not add to previous draw Performed By: #### 0 0071, 92438, 09933, 87795 #### [facility] [address] [facility] [place] [address], [facility] WBC (Bld) [#/Vol] 7.86 10*3/uL Normal 4.00-10.60 [facility] Comment on above: Order Comment: No: D o not add to previous draw Performed By: #### 0 0071, 69757, 22466, 09621 #### [facility] [address] [place] [address], [facility] BASIC METABOLIC PANELon 11-2 Calcium [Mass/Vol] 9.3 mg/dL Normal 8.6-10.3 [facility] Comment on above: Order Comment: No: D o not add to previous draw Performed By: #### 0 0071, 52377, 98170, 43589 #### [facility] [address] [place] [address], [facility] Chloride [Moles/Vol] 103 mmol/L Normal 98-107 [facility] Comment on above: Order Comment: No: D o not add to previous draw Performed By: #### 0 0071, 39310, 60453, 42129 #### [facility] [address] [place] [address], [place] CO2 [Moles/Vol] 32 mmol/L High 21-31 [facility] Comment on above: Order Comment: No: D o not add to previous draw Performed By: #### 0 0071, 68516, 36102, 66184 #### [facility] [address] [place] [address], [place] Creatinine [Mass/Vol] 1.14 mg/dL Normal 0.60-1.20 [facility] Comment on above: Order Comment: No: D o not add to previous draw Performed By: #### 0 0071, 16353, 11630, 80641 #### [facility] [address] [place] [address], [place] GFR/1.73 sq M predicted among blacks MDRD (S/P/Bld) [Vol rate/Area] 56 ml/min/1.73sq m Abnormal >60 [facility] Comment on above: Order Comment: No: D o not add to previous draw Result Comment: Calc ulation may not be valid for patients over 70 years Performed By: #### 0 0071, 86787, 52358, 63479 #### [facility] [address] [place] [address], [place] GFR/1.73 sq M predicted among non-blacks MDRD (S/P/Bld) [Vol rate/Area] 46 ml/min/1.73sq m Abnormal >60 [facility] Comment on above: Order Comment: No: D o not add to previous draw Result Comment: Calc ulation may not be valid for patients over 70 years Performed By: #### 0 0071, 11873, 74422, 60234 #### [facility] [address] [place] [address], [place] Glucose [Mass/Vol] 93 mg/dL Normal 70-100 [facility] Comment on above: Order Comment: No: D o not add to previous draw Performed By: #### 0 0071, 18566, 33738, 65808 #### [facility] [address] [place] [address], [place] Potassium [Moles/Vol] 3.5 mmol/L Normal 3.5-5.1 [facility] Comment on above: Order Comment: No: D o not add to previous draw Performed By: #### 0 0071, 68122, 54951, 89504 #### [facility] [address] [place] [address], [place] Sodium [Moles/Vol] 142 mmol/L Normal 136-145 [facility] Comment on above: Order Comment: No: D o not add to previous draw Performed By: #### 0 0071, 42500, 54662, 83707 #### [facility] [address] [place] [address], [place] Urea nitrogen [Mass/Vol] 27 mg/dL High 7-25 [facility] Comment on above: Order Comment: No: D o not add to previous draw Performed By: #### 0 0071, 10127, 38527, 83505 #### [facility] [address] [place] [address], [place] CBC COMPLETE BLOOD COUNTon 03-11-2018 Erythrocyte distribution width (RBC) [Ratio] Unable to calculate Normal 11.5-15.0 [facility] Comment on above: Order Comment: No: D o not add to previous draw Performed By: #### 0 0071, 64834, 19656, 15750 #### [facility] [address] [place] [address], [facility] Hematocrit (Bld) [Volume fraction] 27.8 % Low 36.0-45.0 [facility] Comment on above: Order Comment: No: D o not add to previous draw Performed By: #### 0 0071, 87820, 01186, 56659 #### [facility] [address] [place] [address], [facility] Hemoglobin (Bld) [Mass/Vol] 8.4 g/dL Low 12.0-15.0 [facility] Comment on above: Order Comment: No: D o not add to previous draw Performed By: #### 0 0071, 66347, 46931, 61377 #### [facility] [address] [place] [address], [facility] MCH (RBC) [Entitic mass] 29.8 pg Normal 27.0-33.0 [facility] Comment on above: Order Comment: No: D o not add to previous draw Performed By: #### 0 0071, 93328, 86205, 55608 #### [facility] [address] [place] [address], [facility] MCHC (RBC) [Mass/Vol] 30.2 g/dL Low 32.0-35.0 [facility] Comment on above: Order Comment: No: D o not add to previous draw Performed By: #### 0 0071, 94089, 40028, 00101 #### [facility] [address] [place] [address], [facility] MCV (RBC) [Entitic vol] 98.6 fL High 82.0-98.0 [facility] Comment on above: Order Comment: No: D o not add to previous draw Performed By: #### 0 0071, 97246, 00151, 42783 #### [facility] [address] [place] [address], [facility] Nucleated RBC/100 WBC (Bld) [Ratio] 0 % Normal 0-0 [facility] Comment on above: Order Comment: No: D o not add to previous draw Performed By: #### 0 0071, 01321, 93603, 46098 #### [facility] [address] [place] [address], [facility] PLAT CNT 205 10*3/uL Normal 150-400 [facility] Comment on above: Order Comment: No: D o not add to previous draw Performed By: #### 0 0071, 22989, 50453, 52982 #### [facility] [address] [place] [address], [facility] RBC (Bld) [#/Vol] 2.82 10*6/uL Low 3.80-5.00 [facility] Comment on above: Order Comment: No: D o not add to previous draw Performed By: #### 0 0071, 22000, 83715, 06932 #### [facility] [address] [place] [address], [facility] WBC (Bld) [#/Vol] 7.35 10*3/uL Normal 4.00-10.60 [facility] Comment on above: Order Comment: No: D o not add to previous draw Performed By: #### 0 0071, 94571, 52093, 72644 #### [facility] [address] [place] [address], [facility] BASIC METABOLIC PANELon 11-2 Calcium [Mass/Vol] 9.0 mg/dL Normal 8.6-10.3 [facility] Comment on above: Order Comment: No: D o not add to previous draw Performed By: #### 0 0071, 23974, 71341, 43633 #### [facility] [address] [place] [address], [facility] Chloride [Moles/Vol] 106 mmol/L Normal 98-107 [facility] Comment on above: Order Comment: No: D o not add to previous draw Performed By: #### 0 0071, 62155, 70534, 00656 #### [facility] [address] [place] [address], [place] CO2 [Moles/Vol] 29 mmol/L Normal 21-31 [facility] Comment on above: Order Comment: No: D o not add to previous draw Performed By: #### 0 0071, 91749, 10128, 65531 #### [facility] [address] [place] [address], [place] Creatinine [Mass/Vol] 1.33 mg/dL High 0.60-1.20 [facility] Comment on above: Order Comment: No: D o not add to previous draw Performed By: #### 0 0071, 61847, 55673, 12308 #### [facility] [address] [place] [address], [place] GFR/1.73 sq M predicted among blacks MDRD (S/P/Bld) [Vol rate/Area] 47 ml/min/1.73sq m Abnormal >60 [facility] Comment on above: Order Comment: No: D o not add to previous draw Result Comment: Calc ulation may not be valid for patients over 70 years Performed By: #### 0 0071, 39812, 76060, 92504 #### [facility] [address] [place] [address], [place] GFR/1.73 sq M predicted among non-blacks MDRD (S/P/Bld) [Vol rate/Area] 39 ml/min/1.73sq m Abnormal >60 [facility] Comment on above: Order Comment: No: D o not add to previous draw Result Comment: Calc ulation may not be valid for patients over 70 years Performed By: #### 0 0071, 81398, 15478, 24324 #### [facility] [address] [place] [address], [place] Glucose [Mass/Vol] 92 mg/dL Normal 70-100 [facility] Comment on above: Order Comment: No: D o not add to previous draw Performed By: #### 0 0071, 03468, 85735, 45714 #### [facility] [address] [place] [address], [facility] Potassium [Moles/Vol] 3.9 mmol/L Normal 3.5-5.1 [facility] Comment on above: Order Comment: No: D o not add to previous draw Performed By: #### 0 0071, 14307, 11667, 78516 #### [facility] [address] [place] [address], [place] Sodium [Moles/Vol] 141 mmol/L Normal 136-145 [facility] [facility] Comment on above: Order Comment: No: D o not add to previous draw Performed By: #### 0 0071, 28944, 26673, 58298 #### [facility] [address] [place] [address], [facility] Urea nitrogen [Mass/Vol] 34 mg/dL High 7-25 [facility] Comment on above: Order Comment: No: D o not add to previous draw Performed By: #### 0 0071, 87407, 75478, 98514 #### [facility] [address] [place] [address], [facility] CBC COMPLETE BLOOD COUNTon 03-10-2018 Erythrocyte distribution width (RBC) [Ratio] ---- Normal 11.5-15.0 [facility] Comment on above: Order Comment: No: D o not add to previous draw Performed By: #### 0 0071, 12810, 46127, 61696 #### [facility] [address] [place] [address], [place] Hematocrit (Bld) [Volume fraction] 27.6 % Low 36.0-45.0 [facility] Comment on above: Order Comment: No: D o not add to previous draw Performed By: #### 0 0071, 86202, 08657, 32201 #### [facility] [address] [place] [address], [facility] Hemoglobin (Bld) [Mass/Vol] 8.2 g/dL Low 12.0-15.0 [facility] Comment on above: Order Comment: No: D o not add to previous draw Performed By: #### 0 0071, 08304, 00656, 26993 #### [facility] [address] [place] [id number], [facility] MCH (RBC) [Entitic mass] 29.6 pg Normal 27.0-33.0 [facility] Comment on above: Order Comment: No: D o not add to previous draw Performed By: #### 0 0071, 08688, 58896, 07817 #### [facility] [address] [place] [address], [facility] MCHC (RBC) [Mass/Vol] 29.7 g/dL Low 32.0-35.0 [facility] Comment on above: Order Comment: No: D o not add to previous draw Performed By: #### 0 0071, 07121, 57492, 52621 #### [facility] [address] [facility] [place] [address], [facility] MCV (RBC) [Entitic vol] 99.6 fL High 82.0-98.0 [facility] Comment on above: Order Comment: No: D o not add to previous draw Performed By: #### 0 0071, 05463, 52208, 24317 #### [facility] [address] [facility] [place] [address], [facility] Nucleated RBC/100 WBC (Bld) [Ratio] 0 % Normal 0-0 [facility] Comment on above: Order Comment: No: D o not add to previous draw Performed By: #### 0 0071, 35799, 90904, 58848 #### [facility] [address] [place] [id number], [facility] PLAT CNT 213 10*3/uL Normal 150-400 [facility] Comment on above: Order Comment: No: D o not add to previous draw Performed By: #### 0 0071, 60826, 81417, 38383 #### [facility] [address] [place] [address], [facility] RBC (Bld) [#/Vol] 2.77 10*6/uL Low 3.80-5.00 [facility] Comment on above: Order Comment: No: D o not add to previous draw Performed By: #### 0 0071, 74656, 74147, 42556 #### [facility] [address] [place] [address], [facility] WBC (Bld) [#/Vol] 7.75 10*3/uL Normal 4.00-10.60 [facility] Comment on above: Order Comment: No: D o not add to previous draw Performed By: #### 0 0071, 99828, 12704, 59756 #### [facility] [address] CBC COMPLETE BLOOD COUNTon 03-09-2018 Erythrocyte distribution width (RBC) [Ratio] 27.1 % High 11.5-15.0 [facility] Comment on above: Order Comment: No: D o not add to previous draw Performed By: #### 0 0071, 58220, 54940, 15010 #### [facility] [address] [place] [address], [facility] Hematocrit (Bld) [Volume fraction] 29.0 % Low 36.0-45.0 [facility] Comment on above: Order Comment: No: D o not add to previous draw Performed By: #### 0 0071, 38162, 33757, 41956 #### [facility] [address] [place] [address], [facility] Hemoglobin (Bld) [Mass/Vol] 8.9 g/dL Low 12.0-15.0 [facility] Comment on above: Order Comment: No: D o not add to previous draw Performed By: #### 0 0071, 39472, 21399, 69722 #### [facility] [address] MCH (RBC) [Entitic mass] 30.5 pg Normal 27.0-33.0 [facility] Comment on above: Order Comment: No: D o not add to previous draw Performed By: #### 0 0071, 82327, 68853, 48399 #### [facility] [address] [place] [address], [facility] MCHC (RBC) [Mass/Vol] 30.7 g/dL Low 32.0-35.0 [facility] Comment on above: Order Comment: No: D o not add to previous draw Performed By: #### 0 0071, 00867, 10295, 98438 #### [facility] [address] MCV (RBC) [Entitic vol] 99.3 fL High 82.0-98.0 [facility] Comment on above: Order Comment: No: D o not add to previous draw Performed By: #### 0 0071, 79543, 16843, 17006 #### [facility] [address] Nucleated RBC/100 WBC (Bld) [Ratio] 0 % Normal 0-0 [facility] Comment on above: Order Comment: No: D o not add to previous draw Performed By: #### 0 0071, 20793, 61105, 19324 #### [facility] [address] [facility] [place] [address], [facility] PLAT CNT 232 10*3/uL Normal 150-400 [facility] Comment on above: Order Comment: No: D o not add to previous draw Performed By: #### 0 0071, 22722, 39343, 99966 #### [facility] [address] [place] [address], [facility] RBC (Bld) [#/Vol] 2.92 10*6/uL Low 3.80-5.00 [facility] Comment on above: Order Comment: No: D o not add to previous draw Performed By: #### 0 0071, 65162, 86662, 60502 #### [facility] [address] [place] [address], [facility] WBC (Bld) [#/Vol] 9.20 10*3/uL Normal 4.00-10.60 [facility] Comment on above: Order Comment: No: D o not add to previous draw Performed By: #### 0 0071, 14879, 75368, 12149 #### [facility] [address] [place] [place] [address], [facility] COMP METABOLIC PANELon 01-07 Albumin [Mass/Vol] 3.7 g/dL Normal 3.5-5.7 [facility] Comment on above: Performed By: #### 0 0071, 60836, 99739, 87028 #### [facility] [address] [facility] [address] [place] [address], [facility] ALKALINE PHOSPH 107 IU/L High 34-104 [facility] Comment on above: Performed By: #### 0 0071, 83643, 91334, 60095 #### [facility] [address] [facility] [address] [facility] ALT [Catalytic activity/Vol] 16 U/L Normal 7-52 [facility] Comment on above: Performed By: #### 0 0071, 43036, 68290, 62935 #### [facility] [address] [facility] [place] [address], [facility] AST [Catalytic activity/Vol] 22 U/L Normal 13-39 [facility] Comment on above: Performed By: #### 0 0071, 07436, 66342, 93388 #### [facility] [address] [place] [address], [facility] Bilirubin [Mass/Vol] 1.1 mg/dL High 0.3-1.0 [facility] Comment on above: Performed By: #### 0 0071, 99497, 74624, 44204 #### [facility] [address] [place] [address], [place] Calcium [Mass/Vol] 8.8 mg/dL Normal 8.6-10.3 [facility] Comment on above: Performed By: #### 0 0071, 42054, 58062, 86522 #### [facility] [address] [place] [address], [place] Chloride [Moles/Vol] 107 mmol/L Normal 98-107 [facility] Comment on above: Performed By: #### 0 0071, 10349, 32052, 69681 #### [facility] [address] [place] [address], [place] CO2 [Moles/Vol] 28 mmol/L Normal 21-31 [facility] Comment on above: Performed By: #### 0 0071, 02155, 39723, 64796 #### [facility] [address] [place] [address], [place] Creatinine [Mass/Vol] 1.73 mg/dL High 0.60-1.20 [facility] Comment on above: Performed By: #### 0 0071, 10102, 11529, 73915 #### [facility] [address] [place] [address], [place] GFR/1.73 sq M predicted among blacks MDRD (S/P/Bld) [Vol rate/Area] 34 ml/min/1.73sq m Abnormal >60 [facility] Comment on above: Result Comment: Calc ulation may not be valid for patients over 70 years Performed By: #### 0 0071, 57171, 26346, 49064 #### [facility] [address] [place] [address], [place] GFR/1.73 sq M predicted among non-blacks MDRD (S/P/Bld) [Vol rate/Area] 28 ml/min/1.73sq m Abnormal >60 [facility] Comment on above: Result Comment: Calc ulation may not be valid for patients over 70 years Performed By: #### 0 0071, 71978, 80459, 05098 #### [facility] [address] [place] [address], [place] Glucose [Mass/Vol] 98 mg/dL Normal 70-100 [facility] Comment on above: Performed By: #### 0 0071, 29577, 12499, 23930 #### [facility] [address] [place] [address], [place] Potassium [Moles/Vol] 4.6 mmol/L Normal 3.5-5.1 [facility] Comment on above: Performed By: #### 0 0071, 04615, 28162, 87830 #### [facility] [address] [place] [address], [place] Protein [Mass/Vol] 6.6 g/dL Normal 6.0-8.3 [facility] Comment on above: Performed By: #### 0 0071, 08806, 21230, 44223 #### [facility] [address] [place] [address], [place] Sodium [Moles/Vol] 141 mmol/L Normal 136-145 [facility] Comment on above: Performed By: #### 0 0071, 63559, 70882, 57105 #### [facility] [address] [place] [address], [place] Urea nitrogen [Mass/Vol] 42 mg/dL High 7-25 [facility] Comment on above: Performed By: #### 0 0071, 73220, 30825, 84640 #### [facility] [address] [place] [address], [place] Cardiovascular Lab Reporton 01-07-2019 Cardiovascular Lab Report [facility] #: [id number] Physician: Kevon Trejo Abd Department of MD [facility] Service Date: 01/07/2019 Division of Birthdate: 1940 Cardiology Room #: [id number] Adult Cardiovascular Services [facility] [address] [place] [address] Cardiovascular Laboratory Report COUNTER CLERK: Dr. Dedrick Washington, cardiographer. INDICATION: This is an 78-year-old female with past medical history of diastolic heart failure, pulmonary hypertension, hypertension, paroxysmal atrial fibrillation, on Xarelto, who presented with bradycardia and hypotension secondary to overdose. The patient has a worsening renal function during her current hospital stay. She was seen by Nephrology team and her diuretic has been on hold. She also has worsening INR. She has been started on IV fluids. The patient seems to be hypervolemic. She is brought now to the cardiac catheterization lab for further evaluation. PROCEDURE IN DETAIL: An informed consent was obtained from the patient after explaining the benefits and risks of the procedure which include, but not limited to , myocardial infarction, stroke, aortic dissection, infection, bleeding, renal failure, temporary or permanent hemodialysis, temporary or permanent pacemaker, emergent bypass surgery, and pericardial tamponade. The patient was also notified that a cardiographer will be assisting during the course of the procedure. Next, the patient was brought to the cardiac catheterization suite. Her right side of the neck was prepped and draped in the usual sterile fashion. A time-out was obtained to verify the patient as well as the time and site of the procedure. We used Versed and fentanyl for sedation. Then, I used lidocaine 5 mL to anesthetize the area over the right internal jugular vein. Using ultrasound guidance, we obtained access to the right IJ. Next, using the ultrasound guidance and a modified Seldinger technique, I obtained an access to the right internal jugular vein. Then, [place] sheath was inserted 6-Swedish x 11 cm. Then, under fluoroscopy guidance, I passed the Thompson catheter to the wedge position and we measured the pulmonary capillary wedge pressure, PA pressure, right ventricular pressure, and right atrial pressure. We also obtained a sample from pulmonary artery for calculation of cardiac output and cardiac index by Bacilio principle. Then, we removed the catheter and sheath and we achieved optimal hemostasis by manual compression. She tolerated the procedure without any complications. She was transferred back to the medical floor in stable condition. FINDINGS: Pulmonary wedge pressure 50/54 with mean of 48 mmHg, PA pressure 72/30 with mean PA pressure of 49 mmHg, right ventricular pressure 79/13 with right ventricular end-diastolic pressure of 25 mmHg, right atrial pressure 27/33 with mean of 29 mmHg. PA pressure 70%, PA O2 pressure 97%. Cardiac output 8.89 and cardiac index 4.42 L/minute per sq m. Pulmonary vascular resistance 9 dynes. CONCLUSION: After reviewing the hemodynamics, the patient seems to be in severe decompensated heart failure with severely elevated wedge pressure and severely elevated right-sided pressures. She will need more aggressive diuresis. Stop the IV fluids. I spoke to the consult team and nephrology team. She has normal cardiac output and cardiac index and therefore inotropes are not indicated at this time. Electronically Signed by: Kevon Serrano MD 01/08/2019 10:24 A Kevon Serrano MD Date Dict: 01/07/2019/03:32 P/Kevon Serrano MD Date Trans: 01/07/2019 03:58 P/mmo [id number] cc: Edu Odonnell D.O. [facility] CampusDanny Roger [place] [address] Normal [facility] MAGNESIUM BLOODon 01-07-2019 Magnesium [Mass/Vol] 1.9 mg/dL Normal 1.9-2.7 [facility] Comment on above: Order Comment: No: D o not add to previous draw Performed By: #### 0 0071, 63095, 62227, 81771 #### [facility] [address] [facility] [place] [address], [facility] PHOSPHORUS BLOODon 9 Phosphate [Mass/Vol] 2.8 mg/dL Normal 2.5-5.0 [facility] Comment on above: Order Comment: No: D o not add to previous draw Performed By: #### 0 0071, 30207, 87429, 94647 #### [facility] [address] APTTon 01-06-2019 aPTT Coag (Bld) [Time] 33.6 s Normal 25.0-35.0 [facility] Comment on above: Order Comment: No: D o not add to previous draw Result Comment: ALL RESULTS MUST BE INTERPRETED WITH RESPECT TO BLOOD DRAWING ARTIFACT OR DILUTION ERROR OF ANTICOAGULANT AT THE TIME OF SAMPLING. THE APTT SHOULD NOT BE USED TO MONITOR UNFRACTIONATED HEPARIN THERAPY, THIS LABORATORY NO LONGER HAS AN ESTABLISHED THERAPEUTIC RANGE BASED ON THE APTT. IT IS RECOMMENDED THAT THE [facility] - HEPARIN ASSAY (ANTI-XA ACTIVITY) BE USED FOR THIS PURPOSE. Performed By: #### 0 0071, 09286, 44404, 53980 #### [facility] [address] [facility]. [address] BASIC METABOLIC PANELon 12-19 Calcium [Mass/Vol] 8.8 mg/dL Normal 8.6-10.3 [facility] Comment on above: Order Comment: No: D o not add to previous draw Performed By: #### 0 0071, 40219, 13274, 90204 #### [facility] [address] [facility] [place] [address], [facility] Chloride [Moles/Vol] 103 mmol/L Normal 98-107 [facility] Comment on above: Order Comment: No: D o not add to previous draw Performed By: #### 0 0071, 17663, 54758, 25837 #### [facility] [address] [facility] [place] [address], [facility] CO2 [Moles/Vol] 24 mmol/L Normal 21-31 [facility] Comment on above: Order Comment: No: D o not add to previous draw Performed By: #### 0 0071, 36995, 64861, 05776 #### [facility] [address] [place] [address], [facility] Creatinine [Mass/Vol] 3.14 mg/dL High 0.60-1.20 [facility] Comment on above: Order Comment: No: D o not add to previous draw Performed By: #### 0 0071, 51428, 57103, 31004 #### [facility] [address] [place] [address], [place] GFR/1.73 sq M predicted among blacks MDRD (S/P/Bld) [Vol rate/Area] 17 ml/min/1.73sq m Abnormal >60 [facility] Comment on above: Order Comment: No: D o not add to previous draw Result Comment: Calc ulation may not be valid for patients over 70 years Performed By: #### 0 0071, 20332, 23055, 51811 #### [facility] [address] [place] [address], [facility] GFR/1.73 sq M predicted among non-blacks MDRD (S/P/Bld) [Vol rate/Area] 14 ml/min/1.73sq m Abnormal >60 [facility] Comment on above: Order Comment: No: D o not add to previous draw Result Comment: Calc ulation may not be valid for patients over 70 years Performed By: #### 0 0071, 05948, 25546, 36470 #### [facility] [address] [place] [address], [facility] Glucose [Mass/Vol] 123 mg/dL High 70-100 [facility] Comment on above: Order Comment: No: D o not add to previous draw Performed By: #### 0 0071, 56601, 74960, 38647 #### [facility] [address] [place] [address], [place] Potassium [Moles/Vol] 4.5 mmol/L Normal 3.5-5.1 [facility] Comment on above: Order Comment: No: D o not add to previous draw Performed By: #### 0 0071, 95467, 32572, 37562 #### [facility] [address] [place] [address], [place] Sodium [Moles/Vol] 135 mmol/L Low 136-145 [facility] Comment on above: Order Comment: No: D o not add to previous draw Performed By: #### 0 0071, 40376, 92841, 26397 #### [facility] [address] Urea nitrogen [Mass/Vol] 60 mg/dL High 7-25 [facility] Comment on above: Order Comment: No: D o not add to previous draw Performed By: #### 0 0071, 66109, 11565, 81151 #### [facility] [address] [place] [address], [facility] CBC W/DIFFon 01-06-2019 ABS BASOPHILS 0.0 10*3/uL Normal 0.0-0.2 [facility] Comment on above: Order Comment: No: D o not add to previous draw Performed By: #### 0 0071, 66847, 09476, 56647 #### [facility] [address] ABS IMM GRANS 0.1 10*3/uL Normal 0.0-0.2 [facility] Comment on above: Order Comment: No: D o not add to previous draw Performed By: #### 0 0071, 45706, 40192, 95759 #### [facility] [address] [facility] ABS NEUTROPHILS 6.9 10*3/uL Normal 1.6-7.6 [facility] Comment on above: Order Comment: No: D o not add to previous draw Performed By: #### 0 0071, 24022, 93379, 18836 #### [facility] [address] [place] [address], [facility] ACANTHOCYTES Slight Normal [facility] Comment on above: Order Comment: No: D o not add to previous draw Performed By: #### 0 0071, 75184, 60911, 25421 #### [facility] [address] [place] [address], [facility] ANISO Marked Normal [facility] Comment on above: Order Comment: No: D o not add to previous draw Performed By: #### 0 0071, 26909, 99117, 61290 #### [facility] [address] [place] [address], [facility] Basophils/100 WBC (Bld) 0.2 % Normal 0.0-1.0 [facility] Comment on above: Order Comment: No: D o not add to previous draw Performed By: #### 0 0071, 73639, 86795, 90880 #### [facility] [address] [place] [address], [facility] ELLIPTOCYTES Slight Normal [facility] Comment on above: Order Comment: No: D o not add to previous draw Performed By: #### 0 0071, 55144, 72332, 87718 #### [facility] [address] [place] [address], [facility] Eosinophils (Bld) [#/Vol] 0.2 10*3/uL Normal 0.0-0.5 [facility] Comment on above: Order Comment: No: D o not add to previous draw Performed By: #### 0 0071, 90071, 03700, 03745 #### [facility] [address] [place] [address], [facility] Eosinophils/100 WBC (Bld) 1.6 % Normal 0.0-6.0 [facility] Comment on above: Order Comment: No: D o not add to previous draw Performed By: #### 0 0071, 50344, 36067, 66064 #### [facility] [address] [place] [address], [facility] Erythrocyte distribution width (RBC) [Ratio] 27.6 % High 11.5-15.0 [facility] Comment on above: Order Comment: No: D o not add to previous draw Performed By: #### 0 0071, 64218, 83970, 51991 #### [facility] [address] Hematocrit (Bld) [Volume fraction] 27.2 % Low 36.0-45.0 [facility] Comment on above: Order Comment: No: D o not add to previous draw Performed By: #### 0 0071, 28522, 52064, 50806 #### [facility] [address] [place] [address], [facility] Hemoglobin (Bld) [Mass/Vol] 8.2 g/dL Low 12.0-15.0 [facility] Comment on above: Order Comment: No: D o not add to previous draw Performed By: #### 0 0071, 47213, 44486, 97644 #### [facility] [address] [facility] [place] [address], [facility] IMMATURE GRANS 0.5 % Normal 0.0-1.0 [facility] Comment on above: Order Comment: No: D o not add to previous draw Performed By: #### 0 0071, 20553, 76196, 25880 #### [facility] [address] [facility] [place] [place] [address], [facility] Lymphocytes (Bld) [#/Vol] 1.2 10*3/uL Normal 1.2-4.0 [facility] Comment on above: Order Comment: No: D o not add to previous draw Performed By: #### 0 0071, 39183, 33382, 52045 #### [facility] [address] [facility] [place] [address], [facility] Lymphocytes/100 WBC (Bld) 12.5 % Low 20.0-45.0 [facility] Comment on above: Order Comment: No: D o not add to previous draw Performed By: #### 0 0071, 10252, 29192, 87486 #### [facility] [address] [place] [address], [facility] MCH (RBC) [Entitic mass] 29.5 pg Normal 27.0-33.0 [facility] Comment on above: Order Comment: No: D o not add to previous draw Performed By: #### 0 0071, 17395, 61458, 08667 #### [facility] [address] [place] [address], [facility] MCHC (RBC) [Mass/Vol] 30.1 g/dL Low 32.0-35.0 [facility] Comment on above: Order Comment: No: D o not add to previous draw Performed By: #### 0 0071, 00548, 03028, 68838 #### [facility] [address] [place] [address], [facility] MCV (RBC) [Entitic vol] 97.8 fL Normal 82.0-98.0 [facility] Comment on above: Order Comment: No: D o not add to previous draw Performed By: #### 0 0071, 35843, 39907, 46623 #### [facility] [address] [facility] [place] [address], [facility] Monocytes (Bld) [#/Vol] 1.4 10*3/uL High 0.1-1.0 [facility] Comment on above: Order Comment: No: D o not add to previous draw Performed By: #### 0 0071, 23881, 90738, 92775 #### [facility] [address] [facility] [place] [address], [facility] MONOS 14.5 % High 5.0-12.0 [facility] Comment on above: Order Comment: No: D o not add to previous draw Performed By: #### 0 0071, 34388, 08145, 18482 #### [facility] [address] [place] [address], [facility] Neutrophils/100 WBC (Bld) 70.7 % Normal 40.0-72.0 [facility] Comment on above: Order Comment: No: D o not add to previous draw Performed By: #### 0 0071, 15692, 46639, 86587 #### [facility] [address] [place] [address], [facility] Nucleated RBC/100 WBC (Bld) [Ratio] 0 % Normal 0-0 [facility] Comment on above: Order Comment: No: D o not add to previous draw Performed By: #### 0 0071, 75860, 11844, 39886 #### [facility] [address] [place] [address], [facility] OVALOCYTES Slight Normal [facility] Comment on above: Order Comment: No: D o not add to previous draw Performed By: #### 0 0071, 94093, 68001, 96354 #### [facility] [address] [place] [address], [facility] PLAT CNT 236 10*3/uL Normal 150-400 [facility] Comment on above: Order Comment: No: D o not add to previous draw Performed By: #### 0 0071, 30890, 02552, 02027 #### [facility] [address] [place] [address], [facility] POIK Moderate Normal [facility] Comment on above: Order Comment: No: D o not add to previous draw Performed By: #### 0 0071, 54365, 53980, 21147 #### [facility] [address] [place] [address], [facility] POLY Slight Normal [facility] Comment on above: Order Comment: No: D o not add to previous draw Performed By: #### 0 0071, 15326, 87717, 74532 #### [facility] [address] [place] [address], [place] RBC (Bld) [#/Vol] 2.78 10*6/uL Low 3.80-5.00 [facility] Comment on above: Order Comment: No: D o not add to previous draw Performed By: #### 0 0071, 17221, 71589, 15689 #### [facility] [address] SCHISTOCYTES Slight Normal [facility] Comment on above: Order Comment: No: D o not add to previous draw Performed By: #### 0 0071, 42032, 94417, 28706 #### [facility] [address] [place] [address], [facility] WBC (Bld) [#/Vol] 9.76 10*3/uL Normal 4.00-10.60 [facility] Comment on above: Order Comment: No: D o not add to previous draw Performed By: #### 0 0071, 68472, 65782, 62387 #### [facility] [address] CPKon 01-06-2019 CK [Catalytic activity/Vol] 26 U/L Low 30-223 [facility] Comment on above: Performed By: #### 0 0071, 45835, 56310, 50615 #### [facility] [address] FERRITINon 01-06-2019 Ferritin [Mass/Vol] 288 ng/mL Normal 11-307 [facility] Comment on above: Performed By: #### 0 0071, 11097, 21272, 57510 #### [facility] [address] MAGNESIUM BLOODon 01-06-2019 Magnesium [Mass/Vol] 2.1 mg/dL Normal 1.9-2.7 [facility] Comment on above: Order Comment: No: D o not add to previous draw Performed By: #### 0 0071, 38610, 21329, 69009 #### [facility] [address] [place] [address], [facility] PHOSPHORUS BLOODon 9 Phosphate [Mass/Vol] 3.9 mg/dL Normal 2.5-5.0 [facility] Comment on above: Order Comment: No: D o not add to previous draw Performed By: #### 0 0071, 16410, 13061, 03331 #### [facility] [address] [place] [address], [facility] PROTHROMBIN TIMEon 9 INR Coag (PPP) [Relative time] 2.22 {INR} High 0.91-1.16 [facility] Comment on above: Order Comment: No: D o not add to previous draw Result Comment: ACCC P RECOMMENDED INR FOR WARFARIN THERAPY ------- ------- CONDITION INR PROPHYLAXIS OF VENOUS THROMBOSIS 2-3 (HIGH-RISK SURGERY) TREATMENT OF VENOUS THROMBOSIS 2-3 TREATMENT OF PULMONARY EMBOLISM 2-3 PREVENTION OF SYSTEMIC EMBOLISM: 2-3 ACUTE MYOCARDIAL INFARCTION TISSUE HEART VALVES VALVULAR HEART DISEASE ATRIAL FIBRILLATION RECURRENT SYSTEMIC EMBOLISM MECHANICAL HEART VALVE 2.5-3.5 FROM: ORAL ANTICOAGULANTS. MECHANISM OF ACTION, CLINICAL EFFECTIVENESS, AND OPTIMAL THERAPEUTIC RANGE. CHEST 1995;108:231S-246S. Performed By: #### 0 0071, 99927, 06325, 17661 #### [facility] [address] [place] [address], [facility] PT Coag (PPP) [Time] 25.0 s High 12.3-14.8 [facility] Comment on above: Order Comment: No: D o not add to previous draw Result Comment: ALL RESULTS MUST BE INTERPRETED WITH RESPECT TO BLOOD DRAWING ARTIFACT OR DILUTION ERROR OF ANTICOAGULANT AT THE TIME OF SAMPLING. Performed By: #### 0 0071, 76855, 76839, 57468 #### [facility] [address] [place] [address], [facility] TIBC- INCLUDES IRONon 2018 FE SATURATION 25 % Normal 20-50 [facility] Comment on above: Performed By: #### 0 0071, 86849, 13165, 98398 #### [facility] [address] [place] [address], [facility] Iron [Mass/Vol] 87 ug/dL Normal 50-212 [facility] Comment on above: Performed By: #### 0 0071, 07198, 43195, 85558 #### [facility] [address] [place] [address], [facility] TIBC 345 mcg/dL Normal 250-450 [facility] Comment on above: Performed By: #### 0 0071, 46702, 79103, 98141 #### [facility] [address] [place] [address], [facility] UIBC 258 mcg/dL Normal 155-355 [facility] Comment on above: Performed By: #### 0 0071, 67560, 93586, 00542 #### [facility] [address] TRANSFERRINon 01-06-2019 Transferrin [Mass/Vol] 282 mg/dL Normal 203-362 [facility] Comment on above: Performed By: #### 0 0071, 77528, 77985, 68041 #### [facility] [address] [facility] [place] [address], [facility] ANAon 01-05-2019 Nuclear Ab IF (S) [Titer] <1:40 Normal <1:40,1:40 [facility] Comment on above: Order Comment: No: D o not add to previous draw Performed By: #### 0 0071, 71290, 04414, 73616 #### [facility] [address] [place] [address], [facility] BASIC METABOLIC PANELon 12-19 Calcium [Mass/Vol] 8.5 mg/dL Low 8.6-10.3 [facility] Comment on above: Order Comment: No: D o not add to previous draw Performed By: #### 5 0608 #### [facility] [address] [place] [address], [place] Chloride [Moles/Vol] 103 mmol/L Normal 98-107 [facility] Comment on above: Order Comment: No: D o not add to previous draw Performed By: #### 5 0608 #### [facility] [address] [place] [address], [place] CO2 [Moles/Vol] 24 mmol/L Normal 21-31 [facility] Comment on above: Order Comment: No: D o not add to previous draw Performed By: #### 5 0608 #### [facility] [address] [place] [address], [place] Creatinine [Mass/Vol] 2.90 mg/dL High 0.60-1.20 [facility] Comment on above: Order Comment: No: D o not add to previous draw Performed By: #### 5 0608 #### [facility] [address] [place] [address], [place] GFR/1.73 sq M predicted among blacks MDRD (S/P/Bld) [Vol rate/Area] 19 ml/min/1.73sq m Abnormal >60 [facility] Comment on above: Order Comment: No: D o not add to previous draw Result Comment: Calc ulation may not be valid for patients over 70 years Performed By: #### 5 0608 #### [facility] [address] [place] [address], [place] GFR/1.73 sq M predicted among non-blacks MDRD (S/P/Bld) [Vol rate/Area] 16 ml/min/1.73sq m Abnormal >60 [facility] Comment on above: Order Comment: No: D o not add to previous draw Result Comment: Calc ulation may not be valid for patients over 70 years Performed By: #### 5 0608 #### [facility] [address] [place] [address], [place] Glucose [Mass/Vol] 142 mg/dL High 70-100 [facility] Comment on above: Order Comment: No: D o not add to previous draw Performed By: #### 5 0608 #### [facility] [address] [place] [address], [facility] Potassium [Moles/Vol] 4.6 mmol/L Normal 3.5-5.1 [facility] Comment on above: Order Comment: No: D o not add to previous draw Performed By: #### 5 0608 #### [facility] [address] [facility] Sodium [Moles/Vol] 134 mmol/L Low 136-145 [facility] Comment on above: Order Comment: No: D o not add to previous draw Performed By: #### 5 0608 #### [facility] [address] [facility]. [address] Urea nitrogen [Mass/Vol] 53 mg/dL High 7-25 [facility] Comment on above: Order Comment: No: D o not add to previous draw Performed By: #### 5 0608 #### [facility] [address] BNP (B-TYPE NATRIURETIC PEPT LIVAN)on 01-05-2019 Natriuretic peptide B (Bld) [Mass/Vol] 616 pg/mL High 0-100 [facility] Comment on above: Order Comment: No: D o not add to previous draw Result Comment: Give n the appropriate clinical setting a BNP result of >100 pg/mL indicates congestive heart failure. Performed By: #### 5 0608 #### [facility] [address] [facility] [place] [address], [facility] CBC W/DIFFon 01-05-2019 ABS BASOPHILS 0.0 10*3/uL Normal 0.0-0.2 [facility] Comment on above: Performed By: #### 5 0608 #### [facility] [address] [facility]. [address] ABS IMM GRANS 0.1 10*3/uL Normal 0.0-0.2 [facility] Comment on above: Performed By: #### 5 0608 #### [facility] [address] [facility] [place] [address], [facility] ABS NEUTROPHILS 7.6 10*3/uL Normal 1.6-7.6 [facility] Comment on above: Performed By: #### 5 0608 #### [facility] [address] ACANTHOCYTES Slight Normal [facility] Comment on above: Performed By: #### 5 0608 #### [facility] [address] ANISO Marked Normal [facility] Comment on above: Performed By: #### 5 0608 #### [facility] [address] [facility]. [address] Basophils/100 WBC (Bld) 0.2 % Normal 0.0-1.0 [facility] Comment on above: Performed By: #### 5 0608 #### [facility] [address] THERESA CELLS Slight Normal [facility] Comment on above: Performed By: #### 5 0608 #### [facility] [address] [facility]. [address] ELLIPTOCYTES Slight Normal [facility] Comment on above: Performed By: #### 5 0608 #### [facility] [address] [place] [address], [facility] Eosinophils (Bld) [#/Vol] 0.0 10*3/uL Normal 0.0-0.5 [facility] Comment on above: Performed By: #### 5 0608 #### [facility] [address] [facility] [place] [address], [facility] Eosinophils/100 WBC (Bld) 0.2 % Normal 0.0-6.0 [facility] Comment on above: Performed By: #### 5 0608 #### [facility] [address] [facility] Erythrocyte distribution width (RBC) [Ratio] 27.2 % High 11.5-15.0 [facility] Comment on above: Result Comment: Resu lt changed by [email or web address] on 01/05/2019 02:09. The previous value was ----. Performed By: #### 5 0608 #### [facility] [address] Hematocrit (Bld) [Volume fraction] 27.5 % Low 36.0-45.0 [facility] Comment on above: Result Comment: Resu lt changed by [email or web address] on 01/05/2019 02:09. The previous value was 27.7. Performed By: #### 5 0608 #### [facility] [address] [facility] Hemoglobin (Bld) [Mass/Vol] 8.2 g/dL Low 12.0-15.0 [facility] Comment on above: Performed By: #### 5 0608 #### [facility] [address] [facility] [place] [address], [facility] IMMATURE GRANS 0.6 % Normal 0.0-1.0 [facility] Comment on above: Performed By: #### 5 0608 #### [facility] [address] [facility] [place] [address], [facility] Lymphocytes (Bld) [#/Vol] 0.9 10*3/uL Low 1.2-4.0 [facility] Comment on above: Performed By: #### 5 0608 #### [facility] [address] [place] [address], [facility] Lymphocytes/100 WBC (Bld) 9.0 % Low 20.0-45.0 [facility] Comment on above: Performed By: #### 5 0608 #### [facility] [address] [place] [address], [facility] MCH (RBC) [Entitic mass] 29.3 pg Normal 27.0-33.0 [facility] Comment on above: Result Comment: Resu lt changed by [email or web address] on 01/05/2019 02:09. The previous value was 29.1. Performed By: #### 5 0608 #### [facility] [address] MCHC (RBC) [Mass/Vol] 29.8 g/dL Low 32.0-35.0 [facility] Comment on above: Result Comment: Resu lt changed by [email or web address] on 01/05/2019 02:09. The previous value was 29.6. Performed By: #### 5 0608 #### [facility] [address] MCV (RBC) [Entitic vol] 98.2 fL High 82.0-98.0 [facility] Comment on above: Performed By: #### 5 0608 #### [facility] [address] [place] [address], [facility] Monocytes (Bld) [#/Vol] 1.1 10*3/uL High 0.1-1.0 [facility] Comment on above: Performed By: #### 5 0608 #### [facility] [address] MONOS 11.8 % Normal 5.0-12.0 [facility] Comment on above: Performed By: #### 5 0608 #### [facility] [address] [place] [address], [facility] Neutrophils/100 WBC (Bld) 78.2 % High 40.0-72.0 [facility] Comment on above: Performed By: #### 5 0608 #### [facility] [address] [facility] [place] [address], [facility] Nucleated RBC/100 WBC (Bld) [Ratio] 0 % Normal 0-0 [facility] Comment on above: Performed By: #### 5 0608 #### [facility] [address] [facility] [place] [address], [facility] OTHER 1 Checked by Los navarro M.D. Normal [facility] Comment on above: Result Comment: Resu lt changed by EMEECE on 01/05/2019 09:19. The previous value was Preliminary report; verified report to follow. Performed By: #### 5 0608 #### [facility] [address] [facility]. [address] OVALOCYTES Slight Normal [facility] Comment on above: Performed By: #### 5 0608 #### [facility] [address] [facility] [place] [address], [facility] PLAT CNT 263 10*3/uL Normal 150-400 [facility] Comment on above: Performed By: #### 5 0608 #### [facility] [address] [facility] [place] [address], [facility] POIK Moderate Normal [facility] Comment on above: Performed By: #### 5 0608 #### [facility] [address] [facility] [place] [address], [facility] RBC (Bld) [#/Vol] 2.80 10*6/uL Low 3.80-5.00 [facility] Comment on above: Result Comment: Resu lt changed by [email or web address] on 01/05/2019 02:09. The previous value was 2.82. Performed By: #### 5 0608 #### [facility] [address] [facility] [place] [address], [facility] SCHISTOCYTES Slight Normal [facility] Comment on above: Performed By: #### 5 0608 #### [facility] [address] WBC (Bld) [#/Vol] 9.70 10*3/uL Normal 4.00-10.60 [facility] Comment on above: Result Comment: Resu lt changed by [email or web address] on 01/05/2019 02:09. The previous value was 9.82. Performed By: #### 5 0608 #### [facility] [address] [facility] [place] [address], [facility] COMPLEMENT 3on 01-05-2019 COMPLEMENT 3 89 mg/dL Normal 79-152 [facility] Comment on above: Order Comment: No: D o not add to previous draw Performed By: #### 0 0071, 08161, 35578, 37915 #### [facility] [address] [place] [address], [facility] COMPLEMENT 4on 01-05-2019 COMPLEMENT 4 16 mg/dL Normal 16-38 [facility] Comment on above: Order Comment: No: D o not add to previous draw Performed By: #### 0 0071, 52663, 35546, 70049 #### [facility] [address] CHEST WO CONTRASTon 01-05 CT CHEST WO CONTRAST [facility] Department of Radiology [address] [place] [id number] == Patient Name: JENIFER HERNANDEZ : 1940 Sex: F Age: Race: NA Pt. Location: [id number] Patient Status: I Ordered Date: 01/05/2019 8:15:00 AM Completed Date: 01/05/2019 11:36 AM Requesting Provider: AZUL PIPER Attending Provider: KENNEDI MARSHALL Report Copy To: Signs & Symptoms: Other History: See Comments Comments: R/O Interstitial Lung Disease, Prior echo with possible pulm htn. Exam: CT CHEST WO CONTRAST == CT CHEST WO CONTRAST 01/05/2019 11:36 AM EST SIGN AND SYMPTOMS: Other TECHNOLOGIST COMMENTS: extreme sob x a few weeks QUESTIONS PER RADIOLOGIST: R/O Interstitial Lung Disease, Prior echo with possible pulm htn. PROTOCOL: Axial CT images of the chest were obtained without IV contrast. TECHNIQUE: Multidetector CT axial slices of the chest were obtained without IV contrast. Multiplanar reformats were performed and viewed on a separate workstation and reviewed to further define anatomy and possible pathology.Appropriate CT dose lowering techniques were utilized. COMPARISON: Chest x-ray from December 17, 2018. FINDINGS: Lower neck: Visualized part of the Thyroid gland within normal limits, no supraclavicle adenopathy. Vessels: Pulmonary arteries appeared grossly unremarkable considering noncontrast technique. Mild to moderate atherosclerotic changes in the aorta. and coronary arteries. 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 Heart: Mild cardiomegaly. No pericardial effusion. Airways: Within normal limits Lungs: Interstitial thickening bilaterally with scattered areas of subtle groundglass opacities suggesting pulmonary congestive changes. Bilateral compressive atelectasis in the lower lobes. Pleura: Bilateral pleural effusion; moderate on the right and small left. Chest Wall: Diffuse anasarca along the chest wall. Upper Abdomen: Significant vascular calcification in the abdominal aorta and branches. Bones: Bony spurring in the thoracic spine consistent with spondylosis with type III discogenic sclerosis in the lower thoracic and upper lumbar spine. Sternotomy wires from prior CABG procedure. Multiple lymph nodes in the left axilla worrisome for adenopathy. IMPRESSION: Findings are suggestive of decompensated CHF with cardiomegaly, bilateral effusions; right more than left with adjacent compressive atelectasis and congestive changes in both lungs with early pulmonary edema Evidence of prior CABG procedure. Nonspecific lymph nodes in the mediastinum and left axilla. Diffuse anasarca. Electronically signed by:Christina Jules. Transcribed by: [id number], User Resident: Electronically Signed by: CHRISTINA JULES @ 01/06/2019 11:13 AM Normal [facility] Comment on above: Order Comment: No: D o not add to previous draw IMMUNOFIXATION BLOODon 01-05 IgA [Mass/Vol] 233 mg/dL Normal 60-413 [facility] Comment on above: Order Comment: No: D o not add to previous draw Performed By: #### 0 0071, 55808, 70301, 42707 #### [facility] [address] [place] [address], [facility] IgG [Mass/Vol] 1240 mg/dL Normal 591-1540 [facility] Comment on above: Order Comment: No: D o not add to previous draw Performed By: #### 0 0071, 82393, 27449, 08359 #### [facility] [address] [place] [address], [facility] IgM [Mass/Vol] 52 mg/dL Low 54-285 [facility] Comment on above: Order Comment: No: D o not add to previous draw Performed By: #### 0 0071, 70649, 48965, 91198 #### [facility] [address] [place] [address], [facility] IMMUNOFIXATION Serum Immunofixation reveals: A NORMAL PATTERN. SEE SEPARATE REPORT Normal [facility] Comment on above: Order Comment: No: D o not add to previous draw Performed By: #### 0 0071, 51348, 39868, 57124 #### [facility] [address] [place] [address], [place] KAPPA LIGHT CHN 7.65 mg/dL High 0.33-1.94 [facility] Comment on above: Order Comment: No: D o not add to previous draw Result Comment: KF R epeated for verification. Performed By: #### 0 0071, 82067, 29366, 64160 #### [facility] [address] [place] [address], [facility] KAPPA/LAMDBA RATIO 2.37 RATIO High 0.26-1.65 [facility] Comment on above: Order Comment: No: D o not add to previous draw Result Comment: For patients with renal impairment, use a kappa/lambda ratio of 0.37-3.10 Performed By: #### 0 0071, 81686, 11751, 58363 #### [facility] [address] [place] [address], [facility] LAMBDA LIGHT CHN 3.23 mg/dL High 0.57-2.63 [facility] Comment on above: Order Comment: No: D o not add to previous draw Result Comment: LF R epeated for verification. Performed By: #### 0 0071, 56345, 38419, 69497 #### [facility] [address] [place] [address], [facility] OSMOLALITY URINEon 9 Osmolality [Osmolality] 325 mOsm/kg Normal 50-1400 [facility] Comment on above: Order Comment: No: D o not add to previous draw Performed By: #### 0 0071, 62595, 66104, 53814 #### [facility] [address] [place] [address], [facility] PROTEIN ELECT Joseph 01-05-2019 Protein [Mass/Vol] 5.9 g/dL Low 6.0-8.3 [facility] Comment on above: Order Comment: No: D o not add to previous draw Performed By: #### 0 0071, 91025, 96916, 83008 #### [facility] [address] [place] [address], [facility] Protein [Mass/Vol] Normal [facility] Comment on above: Order Comment: No: D o not add to previous draw Result Comment: Hypo albuminemia and greatly elevated alpha 2 fraction suggests nephrosis. Performed By: #### 0 0071, 16842, 50635, 67284 #### [facility] [address] [place] [address], [facility] PROTEIN ELECT URon 9 Protein [Mass/Vol] No abnormal bands seen. Normal [facility] Comment on above: Order Comment: No: D o not add to previous draw Performed By: #### 0 0071, 69370, 67810, 00801 #### [facility] [address] [place] [address], [place] Protein [Mass/Vol] 379.0 mg/dL Normal [facility] Comment on above: Order Comment: No: D o not add to previous draw Result Comment: Ther e are no established reference values for random urine specimens Performed By: #### 0 0071, 48615, 74193, 58758 #### [facility] [address] [place] [address], [facility] SODIUM URINE RANDOMon 2018 Sodium (U) [Moles/Vol] 14 mmol/L Normal [facility] Comment on above: Order Comment: No: D o not add to previous draw Result Comment: Ther e are no established reference values for random urine specimens Performed By: #### 0 0071, 10581, 15973, 98350 #### [facility] [address] [place] [address], [place] URINALYSIS REFLEXon 01-06-20 19 Appearance (U) CLOUDY Abnormal CLEAR [facility] Comment on above: Order Comment: No: D o not add to previous draw Performed By: #### 0 0071, 99500, 42794, 90417 #### [facility] [address] [place] [address], [place] Bilirubin [Mass/Vol] Negative Normal NEGATIVE [facility] Comment on above: Order Comment: No: D o not add to previous draw Performed By: #### 0 0071, 57258, 54853, 78720 #### [facility] [address] [place] [address], [facility] BLOOD Negative Normal NEGATIVE [facility] Comment on above: Order Comment: No: D o not add to previous draw Performed By: #### 0 0071, 71724, 44150, 09437 #### [facility] [address] [place] [address], [place] CALCIUM OXALATE CRYSTAL OCC Abnormal NONE SEEN [facility] Comment on above: Order Comment: No: D o not add to previous draw Performed By: #### 0 0071, 09623, 18123, 91796 #### [facility] [address] [place] [address], [facility] Color (U) FARHEEN Abnormal YELLOW [facility] Comment on above: Order Comment: No: D o not add to previous draw Performed By: #### 0 0071, 94366, 51789, 75999 #### [facility] [address] [place] [address], [facility] EPIS MANY Abnormal FEW,OCC,NONE SEEN [facility] Comment on above: Order Comment: No: D o not add to previous draw Performed By: #### 0 0071, 51835, 86134, 34362 #### [facility] [address] [facility] [place] [address], [place] Glucose [Mass/Vol] Negative Normal NEGATIVE [facility] Comment on above: Order Comment: No: D o not add to previous draw Performed By: #### 0 0071, 86378, 06129, 71833 #### [facility] [address] [place] [address], [place] GRANULAR CASTS 6-8 Abnormal NONE SEEN [facility] Comment on above: Order Comment: No: D o not add to previous draw Performed By: #### 0 0071, 13555, 88918, 89276 #### [facility] [address] [place] [address], [place] HYALINE CASTS 4-6 Abnormal NONE SEEN [facility] Comment on above: Order Comment: No: D o not add to previous draw Performed By: #### 0 0071, 51110, 58721, 76947 #### [facility] [address] [place] [address], [facility] KETONE Negative Normal NEGATIVE [facility] Comment on above: Order Comment: No: D o not add to previous draw Performed By: #### 0 0071, 01701, 53118, 67055 #### [facility] [address] [place] [address], [facility] LEUK ARASH LARGE Abnormal NEGATIVE [facility] Comment on above: Order Comment: No: D o not add to previous draw Performed By: #### 0 0071, 20879, 99646, 13160 #### [facility] [address] [place] [address], [facility] MUCUS THREADS FEW Abnormal NONE SEEN [facility] Comment on above: Order Comment: No: D o not add to previous draw Performed By: #### 0 0071, 44579, 73237, 81130 #### [facility] [address] [place] [address], [facility] Nitrite Ql (U) Negative Normal NEGATIVE [facility] Comment on above: Order Comment: No: D o not add to previous draw Performed By: #### 0 0071, 18408, 63024, 07652 #### [facility] [address] [facility] [place] [address], [facility] pH (Bld) 5.0 Normal 5.0-8.0 [facility] Comment on above: Order Comment: No: D o not add to previous draw Performed By: #### 0 0071, 91200, 87842, 43479 #### [facility] [address] [place] [address], [facility] Protein (U) [Mass/Vol] 100 mg/dL Abnormal NEGATIVE [facility] Comment on above: Order Comment: No: D o not add to previous draw Performed By: #### 0 0071, 06903, 09941, 94501 #### [facility] [address] [place] [address], [facility] RBC (U) [#/Vol] 0-2 Abnormal NONE SEEN [facility] Comment on above: Order Comment: No: D o not add to previous draw Performed By: #### 0 0071, 58875, 40745, 90344 #### [facility] [address] [place] [address], [facility] SPEC GRAV 1.015 Normal 1.015-1.020 [facility] Comment on above: Order Comment: No: D o not add to previous draw Performed By: #### 0 0071, 83414, 18782, 66223 #### [facility] [address] [facility] [place] [address], [facility] UA COMMENT 2 2-4 Waxy casts Normal [facility] Comment on above: Order Comment: No: D o not add to previous draw Performed By: #### 0 0071, 12652, 86922, 08937 #### [facility] [address] [facility] [place] [address], [facility] WBC UA 51-100 Abnormal NONE SEEN [facility] Comment on above: Order Comment: No: D o not add to previous draw Performed By: #### 0 0071, 68124, 46463, 99865 #### [facility] [address] [facility] [place] [address], [facility] URINE CONCEPCION STAIN/EOSon EOSINOPHIL SMEAR NONE SEEN Normal NSN [facility] Comment on above: Order Comment: No: D o not add to previous draw [place] Normal [facility] Comment on above: Order Comment: No: D o not add to previous draw Result Comment: Test Performed by [employer] [address] [place] [id number] - Released 01/06/2019 17:38 US RENALon 01-05-2019 US RENAL [facility] Department of Radiology [address] [place] [id number] == Patient Name: JENIFER HERNANDEZ : 1940 Sex: F Age: Race: NA Pt. Location: [id number] Patient Status: I Ordered Date: 01/05/2019 2:15:00 AM Completed Date: 01/05/2019 10:07 AM Requesting Provider: KENNETH NICHOLS Attending Provider: KENNEDI MARSHALL Report Copy To: Signs & Symptoms: Increased Creatinine History: See Comments Comments: Other, ANSELMO Exam: US RENAL == Addendum Begins The first line of the impression should read, No hydronephrosis identified. Electronically signed by:Los Arroyo. Addendum Ends US RENAL 01/05/2019 10:07 AM EST SIGNS AND SYMPTOMS: Increased Creatinine TECHNOLOGIST COMMENTS: increased creatinine QUESTION FOR THE RADIOLOGIST: ANSELMO TECHNIQUE: Limited retroperitoneal ultrasound. COMPARISON: Renal ultrasound December 19, 2018 FINDINGS: The right kidney measures 10.9 x 6.0 x 5.0 cm and the left kidney measures 11.4 x 5.6 x 5.0 cm. A cyst is noted anteriorly on the left measuring 1.3 x 0.6 x 0.7 cm. No hydronephrosis was identified. Incidental note is made of a right-sided pleural effusion. IMPRESSION: Hydronephrosis identified. Left-sided cortical cyst. Right sided pleural effusion. Electronically signed by:Los Arroyo. Transcribed by: [email or web address], User Resident: Electronically Signed by: LOS ARROYO @ 01/05/2019 03:14 PM Normal [facility] Comment on above: Order Comment: No: D o not add to previous draw BASIC METABOLIC PANELon 11-0 Calcium [Mass/Vol] 9.2 mg/dL Normal 8.6-10.3 [facility] Comment on above: Order Comment: No: D o not add to previous draw Performed By: #### 5 0608 #### [facility] [address] [place] [address], [place] Chloride [Moles/Vol] 106 mmol/L Normal 98-107 [facility] Comment on above: Order Comment: No: D o not add to previous draw Performed By: #### 5 0608 #### [facility] [address] [place] [address], [place] CO2 [Moles/Vol] 31 mmol/L Normal 21-31 [facility] Comment on above: Order Comment: No: D o not add to previous draw Performed By: #### 5 0608 #### [facility] [address] [place] [address], [place] Creatinine [Mass/Vol] 1.01 mg/dL Normal 0.60-1.20 [facility] Comment on above: Order Comment: No: D o not add to previous draw Performed By: #### 5 0608 #### [facility] [address] [place] [address], [place] GFR/1.73 sq M predicted among blacks MDRD (S/P/Bld) [Vol rate/Area] mL/min/{1.73_m2} Normal >60 [facility] Comment on above: Order Comment: No: D o not add to previous draw Result Comment: Calc ulation may not be valid for patients over 70 years Performed By: #### 5 0608 #### [facility] [address] [place] [address], [place] GFR/1.73 sq M predicted among non-blacks MDRD (S/P/Bld) [Vol rate/Area] 53 ml/min/1.73sq m Abnormal >60 [facility] Comment on above: Order Comment: No: D o not add to previous draw Result Comment: Calc ulation may not be valid for patients over 70 years Performed By: #### 5 0608 #### [facility] [address] [place] [address], [place] Glucose [Mass/Vol] 93 mg/dL Normal 70-100 [facility] Comment on above: Order Comment: No: D o not add to previous draw Performed By: #### 5 0608 #### [facility] [address] [place] [address], [place] Potassium [Moles/Vol] 3.2 mmol/L Low 3.5-5.1 [facility] Comment on above: Order Comment: No: D o not add to previous draw Performed By: #### 5 0608 #### [facility] [address] [place] [address], [place] Sodium [Moles/Vol] 145 mmol/L Normal 136-145 [facility] Comment on above: Order Comment: No: D o not add to previous draw Performed By: #### 5 0608 #### [facility] [address] [place] [address], [facility] Urea nitrogen [Mass/Vol] 31 mg/dL High 7-25 [facility] Comment on above: Order Comment: No: D o not add to previous draw Performed By: #### 5 0608 #### [facility] [address] [place] [address], [facility] CBC COMPLETE BLOOD COUNTon 02-23-2018 Erythrocyte distribution width (RBC) [Ratio] 17.2 % High 11.5-15.0 [facility] Comment on above: Order Comment: No: D o not add to previous draw Performed By: #### 5 0608 #### [facility] [address] [place] [address], [place] Hematocrit (Bld) [Volume fraction] 27.2 % Low 36.0-45.0 [facility] Comment on above: Order Comment: No: D o not add to previous draw Performed By: #### 5 0608 #### [facility] [address] [place] [address], [facility] Hemoglobin (Bld) [Mass/Vol] 7.9 g/dL Low 12.0-15.0 [facility] Comment on above: Order Comment: No: D o not add to previous draw Performed By: #### 5 0608 #### [facility] [address] [place] [address], [facility] MCH (RBC) [Entitic mass] 27.1 pg Normal 27.0-33.0 [facility] Comment on above: Order Comment: No: D o not add to previous draw Performed By: #### 5 0608 #### [facility] [address] [place] [address], [facility] MCHC (RBC) [Mass/Vol] 29.0 g/dL Low 32.0-35.0 [facility] Comment on above: Order Comment: No: D o not add to previous draw Performed By: #### 5 0608 #### [facility] [address] [place] [id number], [facility] MCV (RBC) [Entitic vol] 93.2 fL Normal 82.0-98.0 [facility] Comment on above: Order Comment: No: D o not add to previous draw Performed By: #### 5 0608 #### [facility] [address] [place] [address], [facility] Nucleated RBC/100 WBC (Bld) [Ratio] 0 % Normal 0-0 [facility] Comment on above: Order Comment: No: D o not add to previous draw Performed By: #### 5 0608 #### [facility] [address] [place] [address], [facility] PLAT CNT 238 10*3/uL Normal 150-400 [facility] Comment on above: Order Comment: No: D o not add to previous draw Performed By: #### 5 0608 #### [facility] [address] [place] [address], [facility] RBC (Bld) [#/Vol] 2.92 10*6/uL Low 3.80-5.00 [facility] Comment on above: Order Comment: No: D o not add to previous draw Performed By: #### 5 0608 #### [facility] [address] [place] [address], [facility] WBC (Bld) [#/Vol] 7.05 10*3/uL Normal 4.00-10.60 [facility] Comment on above: Order Comment: No: D o not add to previous draw Performed By: #### 5 0608 #### [facility] [address] [place] [id number], [facility] BASIC METABOLIC PANELon 11-0 Calcium [Mass/Vol] 9.5 mg/dL Normal 8.6-10.3 [facility] Comment on above: Order Comment: No: D o not add to previous draw Performed By: #### 5 0608 #### [facility] [address] [place] [id number], [facility] Chloride [Moles/Vol] 103 mmol/L Normal 98-107 [facility] Comment on above: Order Comment: No: D o not add to previous draw Performed By: #### 5 0608 #### [facility] [address] [place] [address], [place] CO2 [Moles/Vol] 34 mmol/L High 21-31 [facility] Comment on above: Order Comment: No: D o not add to previous draw Performed By: #### 5 0608 #### [facility] [address] [place] [id number], [place] Creatinine [Mass/Vol] 1.09 mg/dL Normal 0.60-1.20 [facility] Comment on above: Order Comment: No: D o not add to previous draw Performed By: #### 5 0608 #### [facility] [address] [place] [address], [place] GFR/1.73 sq M predicted among blacks MDRD (S/P/Bld) [Vol rate/Area] 59 ml/min/1.73sq m Abnormal >60 [facility] Comment on above: Order Comment: No: D o not add to previous draw Result Comment: Calc ulation may not be valid for patients over 70 years Performed By: #### 5 0608 #### [facility] [address] [place] [address], [place] GFR/1.73 sq M predicted among non-blacks MDRD (S/P/Bld) [Vol rate/Area] 48 ml/min/1.73sq m Abnormal >60 [facility] Comment on above: Order Comment: No: D o not add to previous draw Result Comment: Calc ulation may not be valid for patients over 70 years Performed By: #### 5 0608 #### [facility] [address] [place] [address], [place] Glucose [Mass/Vol] 149 mg/dL High 70-100 [facility] Comment on above: Order Comment: No: D o not add to previous draw Performed By: #### 5 0608 #### [facility] [address] [place] [address], [place] Potassium [Moles/Vol] 3.9 mmol/L Normal 3.5-5.1 [facility] Comment on above: Order Comment: No: D o not add to previous draw Performed By: #### 5 0608 #### [facility] [address] [place] [address], [place] Sodium [Moles/Vol] 144 mmol/L Normal 136-145 [facility] Comment on above: Order Comment: No: D o not add to previous draw Performed By: #### 5 0608 #### [facility] [address] Urea nitrogen [Mass/Vol] 29 mg/dL High 7-25 [facility] Comment on above: Order Comment: No: D o not add to previous draw Performed By: #### 5 0608 #### [facility] [address] [place] [address], [facility] HEMATOCRITon 12-23-2018 Hematocrit (Bld) [Volume fraction] 28.3 % Low 36.0-45.0 [facility] Comment on above: Order Comment: No: D o not add to previous draw Performed By: #### 9 2088, 19659 ####[facility] HEMOGLOBINon 12-23-2018 Hemoglobin (Bld) [Mass/Vol] 8.2 g/dL Low 12.0-15.0 [facility] Comment on above: Order Comment: No: D o not add to previous draw Performed By: #### 9 2088, 28707 ####[facility] MAGNESIUM BLOODon 12-23-2018 Magnesium [Mass/Vol] 1.8 mg/dL Low 1.9-2.7 [facility] Comment on above: Order Comment: No: D o not add to previous draw Performed By: #### 1 0070, 03300 ####[facility] [place] [address], [facility] ANAon 12-22-2018 Nuclear Ab IF (S) [Titer] <1:40 Normal <1:40,1:40 [facility] Comment on above: Order Comment: No: D o not add to previous draw Performed By: #### 5 0608 #### [facility] [address] [place] [address], [facility] BASIC METABOLIC PANELon Calcium [Mass/Vol] 9.2 mg/dL Normal 8.6-10.3 [facility] Comment on above: Order Comment: No: D o not add to previous draw Performed By: #### 0 0071 ####[facility] [place] [address], [facility] Chloride [Moles/Vol] 103 mmol/L Normal 98-107 [facility] Comment on above: Order Comment: No: D o not add to previous draw Performed By: #### 0 0071 ####[facility] [place] [address], [place] CO2 [Moles/Vol] 30 mmol/L Normal 21-31 [facility] Comment on above: Order Comment: No: D o not add to previous draw Performed By: #### 0 0071 ####[facility] [place] [address], [facility] Creatinine [Mass/Vol] 1.05 mg/dL Normal 0.60-1.20 [facility] Comment on above: Order Comment: No: D o not add to previous draw Performed By: #### 0 0071 ####[facility] [place] [address], [facility] GFR/1.73 sq M predicted among blacks MDRD (S/P/Bld) [Vol rate/Area] mL/min/{1.73_m2} Normal >60 [facility] Comment on above: Order Comment: No: D o not add to previous draw Result Comment: Calc ulation may not be valid for patients over 70 years Performed By: #### 0 0071 ####[facility] [place] [address], [place] GFR/1.73 sq M predicted among non-blacks MDRD (S/P/Bld) [Vol rate/Area] 50 ml/min/1.73sq m Abnormal >60 [facility] Comment on above: Order Comment: No: D o not add to previous draw Result Comment: Calc ulation may not be valid for patients over 70 years Performed By: #### 0 0071 ####[facility] [place] [address], [place] Glucose [Mass/Vol] 116 mg/dL High 70-100 [facility] Comment on above: Order Comment: No: D o not add to previous draw Performed By: #### 0 0071 ####[facility] [place] [address], [place] Potassium [Moles/Vol] 3.7 mmol/L Normal 3.5-5.1 [facility] Comment on above: Order Comment: No: D o not add to previous draw Performed By: #### 0 0071 ####[facility] [place] [address], [facility] Sodium [Moles/Vol] 142 mmol/L Normal 136-145 [facility] Comment on above: Order Comment: No: D o not add to previous draw Performed By: #### 0 0071 ####[facility] [place] [address], [place] Urea nitrogen [Mass/Vol] 28 mg/dL High 7-25 [facility] Comment on above: Order Comment: No: D o not add to previous draw Performed By: #### 0 0071 ####[facility] [place] [address], [place] COMPLEMENT 312-22-2018 COMPLEMENT 3 123 mg/dL Normal 79-152 [facility] Comment on above: Order Comment: Yes: Add to Previous draw if able Performed By: #### 1 0238, 05560 ####[facility], [place] [address], [place] COMPLEMENT 412-22-2018 COMPLEMENT 4 18 mg/dL Normal 16-38 [facility] Comment on above: Order Comment: Yes: Add to Previous draw if able Performed By: #### 1 0238, [id number] ####[facility] [place] [address], [place] HEMOGLOBINon 12-22-2018 Hemoglobin (Bld) [Mass/Vol] 7.8 g/dL Low 12.0-15.0 [facility] Comment on above: Order Comment: No: D o not add to previous draw Performed By: #### 9 2089 ####[facility] [place] [address], [facility] PROTEIN ELECT Joseph 12-22-2018 Protein [Mass/Vol] 6.2 g/dL Normal 6.0-8.3 [facility] Comment on above: Order Comment: Yes: Add to Previous draw if able Performed By: #### 4 1661 ####[facility] [facility] [place] [address], [facility] Protein [Mass/Vol] Normal [facility] Comment on above: Order Comment: Yes: Add to Previous draw if able Result Comment: Hypo albuminemia is seen. This may be dilutional (from I.V. fluids) or nutritional in origin. Performed By: #### 4 1661 ####[facility] [facility] [place] [address], [facility] BASIC METABOLIC PANELon Calcium [Mass/Vol] 9.1 mg/dL Normal 8.6-10.3 [facility] Comment on above: Order Comment: No: D o not add to previous draw Performed By: #### 1 69, [id number] ####[facility] [place] [address], [facility] Chloride [Moles/Vol] 104 mmol/L Normal 98-107 [facility] Comment on above: Order Comment: No: D o not add to previous draw Performed By: #### 1 69, 79036 ####[facility] [facility] [address] [place] [address], [facility] CO2 [Moles/Vol] 30 mmol/L Normal 21-31 [facility] Comment on above: Order Comment: No: D o not add to previous draw Performed By: #### 1 0070, 04003 ####[facility] [place] [address], [facility] Creatinine [Mass/Vol] 1.10 mg/dL Normal 0.60-1.20 [facility] Comment on above: Order Comment: No: D o not add to previous draw Performed By: #### 1 69, 63836 ####[facility] [place] [address], [facility] GFR/1.73 sq M predicted among blacks MDRD (S/P/Bld) [Vol rate/Area] 58 ml/min/1.73sq m Abnormal >60 [facility] Comment on above: Order Comment: No: D o not add to previous draw Result Comment: Calc ulation may not be valid for patients over 70 years Performed By: #### 1 69, 83761 ####[facility] [facility] [place] [address], [facility] GFR/1.73 sq M predicted among non-blacks MDRD (S/P/Bld) [Vol rate/Area] 47 ml/min/1.73sq m Abnormal >60 [facility] Comment on above: Order Comment: No: D o not add to previous draw Result Comment: Calc ulation may not be valid for patients over 70 years Performed By: #### 1 69, 84064 ####[facility] [facility] [place] [address], [facility] Glucose [Mass/Vol] 88 mg/dL Normal 70-100 [facility] Comment on above: Order Comment: No: D o not add to previous draw Performed By: #### 1 69, 63384 ####[facility] [facility] [place] [address], [facility] Potassium [Moles/Vol] 3.4 mmol/L Low 3.5-5.1 [facility] Comment on above: Order Comment: No: D o not add to previous draw Performed By: #### 1 69, 51988 ####[facility] [place] [address], [facility] Sodium [Moles/Vol] 142 mmol/L Normal 136-145 [facility] Comment on above: Order Comment: No: D o not add to previous draw Performed By: #### 1 0, 00654 ####[facility] [place] [address], [facility] Urea nitrogen [Mass/Vol] 33 mg/dL High 7-25 [facility] Comment on above: Order Comment: No: D o not add to previous draw Performed By: #### 1 0, 54847 ####[facility] [facility] [place] [address], [facility] HEMOGLOBINon 12-21-2018 Hemoglobin (Bld) [Mass/Vol] 7.7 g/dL Low 12.0-15.0 [facility] Comment on above: Order Comment: No: D o not add to previous draw Performed By: #### 0 0071 #### [facility] [address] [place] [address], [facility] MAGNESIUM BLOODon 12-21-2018 Magnesium [Mass/Vol] 1.8 mg/dL Low 1.9-2.7 [facility] Comment on above: Order Comment: No: D o not add to previous draw Performed By: #### 1 0, 06890 ####[facility] [facility] [place] [place] [address], [facility] BASIC METABOLIC PANELon Calcium [Mass/Vol] 9.3 mg/dL Normal 8.6-10.3 [facility] Comment on above: Order Comment: No: D o not add to previous draw Performed By: #### 0 0071 #### [facility] [address] [place] [address], [place] Chloride [Moles/Vol] 102 mmol/L Normal 98-107 [facility] Comment on above: Order Comment: No: D o not add to previous draw Performed By: #### 0 0071 #### [facility] [address] [place] [address], [place] CO2 [Moles/Vol] 32 mmol/L High 21-31 [facility] Comment on above: Order Comment: No: D o not add to previous draw Performed By: #### 0 0071 #### [facility] [address] [place] [address], [place] Creatinine [Mass/Vol] 1.10 mg/dL Normal 0.60-1.20 [facility] Comment on above: Order Comment: No: D o not add to previous draw Performed By: #### 0 0071 #### [facility] [address] [place] [address], [facility] GFR/1.73 sq M predicted among blacks MDRD (S/P/Bld) [Vol rate/Area] 58 ml/min/1.73sq m Abnormal >60 [facility] Comment on above: Order Comment: No: D o not add to previous draw Result Comment: Calc ulation may not be valid for patients over 70 years Performed By: #### 0 0071 #### [facility] [address] [place] [address], [facility] GFR/1.73 sq M predicted among non-blacks MDRD (S/P/Bld) [Vol rate/Area] 47 ml/min/1.73sq m Abnormal >60 [facility] Comment on above: Order Comment: No: D o not add to previous draw Result Comment: Calc ulation may not be valid for patients over 70 years Performed By: #### 0 0071 #### [facility] [address] [place] [address], [place] Glucose [Mass/Vol] 120 mg/dL High 70-100 [facility] Comment on above: Order Comment: No: D o not add to previous draw Performed By: #### 0 0071 #### [facility] [address] [place] [address], [place] Potassium [Moles/Vol] 3.3 mmol/L Low 3.5-5.1 [facility] Comment on above: Order Comment: No: D o not add to previous draw Performed By: #### 0 0071 #### [facility] [address] [place] [address], [facility] Sodium [Moles/Vol] 142 mmol/L Normal 136-145 [facility] Comment on above: Order Comment: No: D o not add to previous draw Performed By: #### 0 0071 #### [facility] [address] [place] [address], [facility] Urea nitrogen [Mass/Vol] 36 mg/dL High 7-25 [facility] Comment on above: Order Comment: No: D o not add to previous draw Performed By: #### 0 0071 #### [facility] [address] [place] [id number], [facility] CBC COMPLETE BLOOD COUNTon 1 02-19-2018 Erythrocyte distribution width (RBC) [Ratio] 15.8 % High 11.5-15.0 [facility] Comment on above: Order Comment: No: D o not add to previous draw Performed By: #### 0 0071 #### [facility] [address] [place] [address], [facility] Hematocrit (Bld) [Volume fraction] 25.4 % Low 36.0-45.0 [facility] Comment on above: Order Comment: No: D o not add to previous draw Performed By: #### 0 0071 #### [facility] [address] [place] [address], [facility] Hemoglobin (Bld) [Mass/Vol] 7.8 g/dL Low 12.0-15.0 [facility] Comment on above: Order Comment: No: D o not add to previous draw Performed By: #### 0 0071 #### [facility] [address] [place] [address], [facility] MCH (RBC) [Entitic mass] 27.1 pg Normal 27.0-33.0 [facility] Comment on above: Order Comment: No: D o not add to previous draw Performed By: #### 0 0071 #### [facility] [address] [place] [address], [facility] MCHC (RBC) [Mass/Vol] 30.7 g/dL Low 32.0-35.0 [facility] Comment on above: Order Comment: No: D o not add to previous draw Performed By: #### 0 0071 #### [facility] [address] [facility] [place] [id number], [facility] MCV (RBC) [Entitic vol] 88.2 fL Normal 82.0-98.0 [facility] Comment on above: Order Comment: No: D o not add to previous draw Performed By: #### 0 0071 #### [facility] [address] [facility] [place] [address], [facility] Nucleated RBC/100 WBC (Bld) [Ratio] 0 % Normal 0-0 [facility] Comment on above: Order Comment: No: D o not add to previous draw Performed By: #### 0 0071 #### [facility] [address] [facility] [place] [address], [facility] PLAT CNT 227 10*3/uL Normal 150-400 [facility] Comment on above: Order Comment: No: D o not add to previous draw Performed By: #### 0 0071 #### [facility] [address] [facility] [place] [address], [facility] RBC (Bld) [#/Vol] 2.88 10*6/uL Low 3.80-5.00 [facility] Comment on above: Order Comment: No: D o not add to previous draw Performed By: #### 0 0071 #### [facility] [address] [place] [id number], [facility] WBC (Bld) [#/Vol] 8.61 10*3/uL Normal 4.00-10.60 [facility] Comment on above: Order Comment: No: D o not add to previous draw Performed By: #### 0 0071 #### [facility] [address] [place] [address], [facility] MAGNESIUM BLOODon 12-20-2018 Magnesium [Mass/Vol] 1.9 mg/dL Normal 1.9-2.7 [facility] Comment on above: Order Comment: No: D o not add to previous draw Performed By: #### 0 0071 #### [facility] [address] [place] [address], [facility] BASIC METABOLIC PANELon Calcium [Mass/Vol] 9.2 mg/dL Normal 8.6-10.3 [facility] Comment on above: Order Comment: No: D o not add to previous draw Performed By: #### 5 0608 #### [facility] [address] [place] [address], [place] Chloride [Moles/Vol] 103 mmol/L Normal 98-107 [facility] Comment on above: Order Comment: No: D o not add to previous draw Performed By: #### 5 0608 #### [facility] [address] [place] [address], [place] CO2 [Moles/Vol] 30 mmol/L Normal 21-31 [facility] Comment on above: Order Comment: No: D o not add to previous draw Performed By: #### 5 0608 #### [facility] [address] [place] [address], [place] Creatinine [Mass/Vol] 1.27 mg/dL High 0.60-1.20 [facility] Comment on above: Order Comment: No: D o not add to previous draw Performed By: #### 5 0608 #### [facility] [address] [place] [address], [place] GFR/1.73 sq M predicted among blacks MDRD (S/P/Bld) [Vol rate/Area] 49 ml/min/1.73sq m Abnormal >60 [facility] Comment on above: Order Comment: No: D o not add to previous draw Result Comment: Calc ulation may not be valid for patients over 70 years Performed By: #### 5 0608 #### [facility] [address] [place] [address], [place] GFR/1.73 sq M predicted among non-blacks MDRD (S/P/Bld) [Vol rate/Area] 41 ml/min/1.73sq m Abnormal >60 [facility] Comment on above: Order Comment: No: D o not add to previous draw Result Comment: Calc ulation may not be valid for patients over 70 years Performed By: #### 5 0608 #### [facility] [address] [place] [address], [place] Glucose [Mass/Vol] 162 mg/dL High 70-100 [facility] Comment on above: Order Comment: No: D o not add to previous draw Performed By: #### 5 0608 #### [facility] [address] [place] [address], [place] Potassium [Moles/Vol] 4.2 mmol/L Normal 3.5-5.1 [facility] Comment on above: Order Comment: No: D o not add to previous draw Performed By: #### 5 0608 #### [facility] [address] [place] [address], [place] Sodium [Moles/Vol] 142 mmol/L Normal 136-145 [facility] Comment on above: Order Comment: No: D o not add to previous draw Performed By: #### 5 0608 #### [facility] [address] [place] [address], [place] Urea nitrogen [Mass/Vol] 43 mg/dL High 7-25 [facility] Comment on above: Order Comment: No: D o not add to previous draw Performed By: #### 5 0608 #### [facility] [address] [place] [address], [facility] CREATININE URINE RANDOMon Creatinine [Mass/Vol] 32.0 mg/dL Normal [facility] Comment on above: Order Comment: No: D o not add to previous draw Result Comment: Ther e are no established reference values for random urine specimens Performed By: #### 0 0071 #### [facility] [address] [place] [address], [facility] FERRITINon 12-19-2018 Ferritin [Mass/Vol] 20 ng/mL Normal 11-307 [facility] Comment on above: Order Comment: No: D o not add to previous draw Performed By: #### 0 0071 #### [facility] [address] [place] [address], [facility] HEMOGLOBINon 12-19-2018 Hemoglobin (Bld) [Mass/Vol] 6.8 g/dL Low 12.0-15.0 [facility] Comment on above: Order Comment: No: D o not add to previous draw Performed By: #### 5 0608 #### [facility] [address] [place] [id number], [facility] MAGNESIUM BLOODon 12-19-2018 Magnesium [Mass/Vol] 1.6 mg/dL Low 1.9-2.7 [facility] Comment on above: Order Comment: No: D o not add to previous draw Performed By: #### 0 0071 #### [facility] [address] [place] [address], [facility] PROTEIN ELECT URon 9 Protein [Mass/Vol] 9.0 mg/dL Normal [facility] Comment on above: Order Comment: No: D o not add to previous draw Result Comment: Ther e are no established reference values for random urine specimens Performed By: #### 0 0071 #### [facility] [address] [place] [id number], [facility] Protein [Mass/Vol] URINE PROTEIN ELECTROPHORESIS NOT DONE; T.P. <10 MG/DL Normal [facility] Comment on above: Order Comment: No: D o not add to previous draw Performed By: #### 0 0071 #### [facility] [address] [place] [address], [facility] TIBC- INCLUDES IRONon 2018 FE SATURATION 8 % Low 20-50 [facility] Comment on above: Order Comment: No: D o not add to previous draw Performed By: #### 5 0608 #### [facility] [address] [place] [address], [facility] Iron [Mass/Vol] 33 ug/dL Low 50-212 [facility] Comment on above: Order Comment: No: D o not add to previous draw Performed By: #### 5 0608 #### [facility] [address] [place] [address], [facility] TIBC 431 mcg/dL Normal 250-450 [facility] Comment on above: Order Comment: No: D o not add to previous draw Performed By: #### 5 0608 #### [facility] [address] [place] [address], [facility] UIBC 398 mcg/dL High 155-355 [facility] Comment on above: Order Comment: No: D o not add to previous draw Performed By: #### 5 0608 #### [facility] [address] [place] [address], [facility] UA,MICROSCOPIC REQUIREDon Appearance (U) CLEAR Normal CLEAR [facility] Comment on above: Order Comment: No: D o not add to previous draw Performed By: #### 0 0071 #### [facility] [address] [place] [address], [facility] Bilirubin [Mass/Vol] Negative Normal NEGATIVE [facility] Comment on above: Order Comment: No: D o not add to previous draw Performed By: #### 0 0071 #### [facility] [address] [place] [address], [place] BLOOD Negative Normal NEGATIVE [facility] Comment on above: Order Comment: No: D o not add to previous draw Performed By: #### 0 0071 #### [facility] [address] [place] [address], [place] Color (U) STRAW Abnormal YELLOW [facility] Comment on above: Order Comment: No: D o not add to previous draw Performed By: #### 0 0071 #### [facility] [address] [place] [address], [place] EPIS MOD Abnormal FEW,OCC,NONE SEEN [facility] Comment on above: Order Comment: No: D o not add to previous draw Performed By: #### 0 0071 #### [facility] [address] [place] [address], [place] Glucose [Mass/Vol] Negative Normal NEGATIVE [facility] Comment on above: Order Comment: No: D o not add to previous draw Performed By: #### 0 0071 #### [facility] [address] [place] [address], [place] HYALINE CASTS 2 /LPF Abnormal NONE SEEN [facility] Comment on above: Order Comment: No: D o not add to previous draw Performed By: #### 0 0071 #### [facility] [address] [place] [address], [place] KETONE Negative Normal NEGATIVE [facility] Comment on above: Order Comment: No: D o not add to previous draw Performed By: #### 0 0071 #### [facility] [address] [place] [address], [place] LEUK ARASH Negative Normal NEGATIVE [facility] Comment on above: Order Comment: No: D o not add to previous draw Performed By: #### 0 0071 #### [facility] [address] [place] [address], [place] Nitrite Ql (U) Negative Normal NEGATIVE [facility] Comment on above: Order Comment: No: D o not add to previous draw Performed By: #### 0 0071 #### [facility] [address] [facility] [place] [address], [facility] pH (Bld) 6.0 Normal 5.0-8.0 [facility] Comment on above: Order Comment: No: D o not add to previous draw Performed By: #### 0 0071 #### [facility] [address] [facility] [place] [address], [facility] Protein [Mass/Vol] Negative Normal NEGATIVE [facility] Comment on above: Order Comment: No: D o not add to previous draw Performed By: #### 0 0071 #### [facility] [address] [place] [place] [address], [facility] RBC (Bld) [#/Vol] 0-2 Abnormal NONE SEEN [facility] Comment on above: Order Comment: No: D o not add to previous draw Performed By: #### 0 0071 #### [facility] [address] [facility] [place] [address], [facility] SPEC GRAV 1.008 Low 1.015-1.020 [facility] Comment on above: Order Comment: No: D o not add to previous draw Performed By: #### 0 0071 #### [facility] [address] [facility] [place] [address], [facility] WBC UA 0-2 Abnormal NONE SEEN [facility] Comment on above: Order Comment: No: D o not add to previous draw Performed By: #### 0 0071 #### [address] [place] [address], [facility] US RENALon 12-19-2018 US RENAL [facility] Department of Radiology [address] [place] [address] [id number] == Patient Name: JENIFER HERNANDEZ : 1940 Sex: F Age: Race: NA Pt. Location: [id number] Patient Status: I Ordered Date: 12/19/2018 1:20:00 PM Completed Date: 12/19/2018 05:04 PM Requesting Provider: FELISHA LUKE Attending Provider: KENNEDI MARSHALL Report Copy To: Signs & Symptoms: Increased Creatinine History: See Comments Comments: R/O Hydronephrosis Exam: US RENAL == US RENAL 12/19/2018 5:04 PM EDT SIGNS AND SYMPTOMS: Increased Creatinine TECHNOLOGIST COMMENTS: QUESTION FOR THE RADIOLOGIST: R/O Hydronephrosis TECHNIQUE: Limited retroperitoneal ultrasound. COMPARISON: none FINDINGS: The right kidney measures 11.4 x 4.5 x 5.3 cm. There is a 0.8 cm small cyst. There is a small pocket of fluid visualized inferior to the right kidney. The left kidney measures 11.7 x 4.2 x 5.6 cm. There is a small cyst measuring 0.7 cm. Shadowing echogenic foci within the gallbladder. IMPRESSION: No evidence of hydronephrosis. Tiny 2 cm pocket of fluid visualized inferior to the right kidney. May represent trace ascites versus incidentally noted physiologic fluid. Cholelithiasis. Approved by:Jose Orosco on 12/20/2018 9:08 AM EDT. I, Tyree Momin, have reviewed the images and report and concur with these findings. Electronically signed by:Tyree Momin. Transcribed by: [email or web address], User Resident: JOSE CHASE Electronically Signed by: TYREE MOMIN @ 12/20/2018 03:17 PM I personally read this/these film(s) with this resident Normal [facility] Comment on above: Order Comment: No: D o not add to previous draw ANTI C3 DATon 12-18-2018 ANTI C3 SOUTH Negative Normal [facility] Comment on above: Performed By: #### 5 [id number] #### [facility] [address] [place] [address], [place] ANTI IGG DATon 12-18-2018 ANTI IGG SOUTH Negative Normal [facility] Comment on above: Performed By: #### 5 0608 #### [facility] [address] [place] [address], [place] ANTIBODY IDENTIFICATIONon ANTIBODY ID C Normal [facility] Comment on above: Performed By: #### 5 0608 #### [facility] [address] [place] [address], [place] BASIC METABOLIC PANELon 11-20 Calcium [Mass/Vol] 9.2 mg/dL Normal 8.6-10.3 [facility] Comment on above: Order Comment: No: D o not add to previous draw Performed By: #### 0 0071, 92017, 05581, 30997 #### [facility] [address] [place] [address], [place] Chloride [Moles/Vol] 98 mmol/L Normal 98-107 [facility] Comment on above: Order Comment: No: D o not add to previous draw Performed By: #### 0 0071, 98420, 77861, 51855 #### [facility] [address] [place] [address], [place] CO2 [Moles/Vol] 30 mmol/L Normal 21-31 [facility] Comment on above: Order Comment: No: D o not add to previous draw Performed By: #### 0 0071, 79389, 19614, 56648 #### [facility] [address] [place] [address], [place] Creatinine [Mass/Vol] 1.59 mg/dL High 0.60-1.20 [facility] Comment on above: Order Comment: No: D o not add to previous draw Performed By: #### 0 0071, 70448, 55926, 49312 #### [facility] [address] [place] [address], [place] GFR/1.73 sq M predicted among blacks MDRD (S/P/Bld) [Vol rate/Area] 38 ml/min/1.73sq m Abnormal >60 [facility] Comment on above: Order Comment: No: D o not add to previous draw Result Comment: Calc ulation may not be valid for patients over 70 years Performed By: #### 0 0071, 71670, 38421, 28488 #### [facility] [address] [place] [address], [facility] GFR/1.73 sq M predicted among non-blacks MDRD (S/P/Bld) [Vol rate/Area] 31 ml/min/1.73sq m Abnormal >60 [facility] Comment on above: Order Comment: No: D o not add to previous draw Result Comment: Calc ulation may not be valid for patients over 70 years Performed By: #### 0 0071, 40212, 00407, 06154 #### [facility] [address] [place] [address], [place] Glucose [Mass/Vol] 115 mg/dL High 70-100 [facility] Comment on above: Order Comment: No: D o not add to previous draw Performed By: #### 0 0071, 08236, 51370, 53761 #### [facility] [address] [place] [address], [place] Potassium [Moles/Vol] 3.1 mmol/L Low 3.5-5.1 [facility] Comment on above: Order Comment: No: D o not add to previous draw Performed By: #### 0 0071, 01496, 32619, 69256 #### [facility] [address] Sodium [Moles/Vol] 137 mmol/L Normal 136-145 [facility] Comment on above: Order Comment: No: D o not add to previous draw Performed By: #### 0 0071, 28075, 04220, 40554 #### [facility] [address] [place] [id number], [facility] Urea nitrogen [Mass/Vol] 53 mg/dL High 7-25 [facility] Comment on above: Order Comment: No: D o not add to previous draw Performed By: #### 0 0071, 09153, 23029, 94713 #### [facility] [address] CBC COMPLETE BLOOD COUNTon Erythrocyte distribution width (RBC) [Ratio] 15.9 % High 11.5-15.0 [facility] Comment on above: Order Comment: No: D o not add to previous draw Performed By: #### 5 0608 #### [facility] [address] Hematocrit (Bld) [Volume fraction] 21.4 % Low 36.0-45.0 [facility] Comment on above: Order Comment: No: D o not add to previous draw Performed By: #### 5 0608 #### [facility] [address] [place] [address], [facility] Hemoglobin (Bld) [Mass/Vol] 6.5 g/dL Low 12.0-15.0 [facility] Comment on above: Order Comment: No: D o not add to previous draw Performed By: #### 5 0608 #### [facility] [address] [place] [id number], [facility] MCH (RBC) [Entitic mass] 26.5 pg Low 27.0-33.0 [facility] Comment on above: Order Comment: No: D o not add to previous draw Performed By: #### 5 0608 #### [facility] [address] [place] [address], [facility] MCHC (RBC) [Mass/Vol] 30.4 g/dL Low 32.0-35.0 [facility] Comment on above: Order Comment: No: D o not add to previous draw Performed By: #### 5 0608 #### [facility] [address] [place] [address], [facility] MCV (RBC) [Entitic vol] 87.3 fL Normal 82.0-98.0 [facility] Comment on above: Order Comment: No: D o not add to previous draw Performed By: #### 5 0608 #### [facility] [address] [facility] [place] [address], [facility] Nucleated RBC/100 WBC (Bld) [Ratio] 0 % Normal 0-0 [facility] Comment on above: Order Comment: No: D o not add to previous draw Performed By: #### 5 0608 #### [facility] [address] [facility] [place] [address], [facility] PLAT CNT 232 10*3/uL Normal 150-400 [facility] Comment on above: Order Comment: No: D o not add to previous draw Performed By: #### 5 0608 #### [facility] [address] [facility] [place] [address], [facility] RBC (Bld) [#/Vol] 2.45 10*6/uL Low 3.80-5.00 [facility] Comment on above: Order Comment: No: D o not add to previous draw Performed By: #### 5 0608 #### [facility] [address] [facility] [place] [address], [facility] WBC (Bld) [#/Vol] 7.40 10*3/uL Normal 4.00-10.60 [facility] Comment on above: Order Comment: No: D o not add to previous draw Performed By: #### 5 0608 #### [facility] [address] [facility]. [place] [id number], [facility] Cardiovascular Lab Reporton 12-18-2018 Cardiovascular Lab Report [facility]: [id number] Physician: Herber Bravo of [facility] Medicine Service Date: 12/17/2018 Division of Birthdate: 1940 Cardiology Room #: [id number] Adult Cardiovascular Services [facility] [address] [place], [place] [address] Cardiovascular Laboratory Report INDICATION: The patient is an 78-year-old woman with chronic diastolic heart failure, who has been having significant shortness of breath and lower extremity edema in the past few weeks. She was recently evaluated by Dr. Srinivasa Park in Cardiology Clinic and she was referred for right heart catheterization. In addition, she has history of atrial fibrillation and is maintained on Xarelto for anticoagulation. Her hemoglobin showed a recent drop to 7.4 from a baseline of 10 to 11. PROCEDURES: 1. Access into right internal jugular vein under ultrasound guidance. 2. Right heart catheterization. METHOD: Procedure was explained to the patient with risks and benefits. She signed informed consent. She was brought to collaborative teacher in a fasting state. The right neck area was prepped and draped in usual fashion. Using ultrasound guidance and micropuncture technique, the right internal jugular vein was accessed. A 6-Swedish x 11 cm sheath was placed. A 6-Swedish Thompson catheter was used for right heart catheterization with measurement of pressures and calculation of cardiac output using the estimated Bacilio method. Thompson catheter was removed, access sheath were removed. Manual compression applied for hemostasis. She tolerated the procedure well. She was transferred to the cardiovascular recovery area. She will be admitted for further management of her acutely decompensated diastolic heart failure. TOTAL FLUORO TIME: 3.10 minutes. TOTAL AIR KERMA: 40 mGy. TOTAL CONTRAST VOLUME: 0 mL. HEMODYNAMICS: RA 20, RV 63/7, 19, PA 59/26, mean 40, pulmonary capillary wedge pressure 21, blood pressure 110/60, mean 75, cardiac output 5.15, cardiac index 2.64, PA sat 43%, AO sat 93%. SUMMARY OF THE FINDINGS: 1. Severely elevated filling pressures. 2. Severe pulmonary hypertension. 3. Normal cardiac output and cardiac index. RECOMMENDATIONS: The patient will be admitted to the hospital for further management of her acutely decompensated diastolic heart failure as this has failed prior attempts at management as an outpatient. In addition, she will need to have investigation for her acute anemia. Electronically Signed by: Herber Allen M.D. 01/03/2019 11:11 A Herber Allen M.D. Date Dict: 12/17/2018/09:48 A/Herber Allen M.D. Date Trans: 12/18/2018 08:22 Becky/sha [id number] cc: Edu Odonnell D.O. [address] [place] [address] Roger kedar. [facility] [address] Normal [facility] HEMOGLOBINon 12-18-2018 Hemoglobin (Bld) [Mass/Vol] 7.3 g/dL Low 12.0-15.0 [facility] Comment on above: Order Comment: No: D o not add to previous draw Performed By: #### 5 0608 #### [facility] [address] [place] [address], [facility] Hemoglobin (Bld) [Mass/Vol] 7.2 g/dL Low 12.0-15.0 [facility] Comment on above: Order Comment: No: D o not add to previous draw Performed By: #### 5 0608 #### [facility] [address] [place] [address], [facility] Hemoglobin (Bld) [Mass/Vol] 6.9 g/dL Low 12.0-15.0 [facility] Comment on above: Order Comment: No: D o not add to previous draw Performed By: #### 9 2089 #### [facility] [address] [place] [id number], [facility] IRON BLOODon 12-18-2018 Iron [Mass/Vol] 19 ug/dL Low 50-212 [facility] Comment on above: Order Comment: No: D o not add to previous draw Performed By: #### 0 0071, 13271, 12911, 86375 #### [facility] [address] [place] [address], [facility] MAGNESIUM BLOODon 12-18-2018 Magnesium [Mass/Vol] 1.8 mg/dL Low 1.9-2.7 [facility] Comment on above: Order Comment: No: D o not add to previous draw Performed By: #### 0 0071, 64827, 48525, 58394 #### [facility] [address] [place] [address], [facility] PHOSPHORUS BLOODon 9 Phosphate [Mass/Vol] 3.1 mg/dL Normal 2.5-5.0 [facility] Comment on above: Order Comment: No: D o not add to previous draw Performed By: #### 0 0071, 83223, 68204, 41010 #### [facility] [address] [place] [address], [facility] RBC'S 2 UNITSon 12-18-2018 CROSSMATCH INTERP 1 COMP Normal [facility] Comment on above: Performed By: #### 5 0608 #### [facility] [address] [facility] [place] [address], [facility] CROSSMATCH INTERP 2 COMP Normal [facility] Comment on above: Performed By: #### 5 0608 #### [facility] [address] [facility] [place] [address], [facility] PRODUCT CODE 1 E0336 Normal [facility] Comment on above: Performed By: #### 5 0608 #### [facility] [address] [facility] [place] [address], [place] PRODUCT CODE 2 E0336 Normal [facility] Comment on above: Performed By: #### 5 0608 #### [facility] [address] [place] [address], [place] PRODUCT STATUS 1 PT Normal [facility] Comment on above: Result Comment: Resu lt changed by IF on 12/19/2018 09:14. The previous value was XM. Result changed by IF on 12/20/2018 00:30. The previous value was IS. Performed By: #### 5 0608 #### [facility] [address] [place] [address], [place] PRODUCT STATUS 2 RE Normal [facility] Comment on above: Result Comment: Resu lt changed by IF on 12/22/2018 07:27. The previous value was XM. Performed By: #### 5 0608 #### [facility] [address] [place] [address], [place] UNIT ABO 1 A Normal [facility] Comment on above: Performed By: #### 5 0608 #### [facility] [address] [place] [address], [place] UNIT ABO 2 A Normal [facility] Comment on above: Performed By: #### 5 0608 #### [facility] [address] [place] [address], [place] UNIT ID 1 [id number] Normal [facility] Comment on above: Performed By: #### 5 0608 #### [facility] [address] [place] [address], [place] UNIT ID 2 [id number] Normal [facility] Comment on above: Performed By: #### 5 0608 #### [facility] [address] [place] [address], [place] UNIT RH 1 Negative Normal [facility] Comment on above: Performed By: #### 5 0608 #### [facility] [address] [place] [address], [place] UNIT RH 2 Negative Normal [facility] Comment on above: Performed By: #### 5 0608 #### [facility] [address] [place] [address], [facility] TYPE AND SCREENon 12-18-2018 ABO INTERPRETATION A Normal [facility] Comment on above: Performed By: #### 5 0608 #### [facility] [address] [place] [address], [facility] RH INTERPRETATION Positive Normal [facility] Comment on above: Performed By: #### 5 0608 #### [facility] [address] [place] [address], [facility] BASIC METABOLIC PANELon 10-3 Calcium [Mass/Vol] 9.5 mg/dL Normal 8.6-10.3 [facility] Comment on above: Order Comment: No: D o not add to previous draw Performed By: #### 0 0071 #### [facility] [address] [place] [address], [facility] Chloride [Moles/Vol] 95 mmol/L Low 98-107 [facility] Comment on above: Order Comment: No: D o not add to previous draw Performed By: #### 0 0071 #### [facility] [address] [place] [address], [facility] CO2 [Moles/Vol] 29 mmol/L Normal - [facility] Comment on above: Order Comment: No: D o not add to previous draw Performed By: #### 0 0071 #### [facility] [address] [facility] [place] [address], [facility] Creatinine [Mass/Vol] 2.01 mg/dL High 0.60-1.20 [facility] Comment on above: Order Comment: No: D o not add to previous draw Performed By: #### 0 0071 #### [facility] [address] [place] [address], [facility] GFR/1.73 sq M predicted among blacks MDRD (S/P/Bld) [Vol rate/Area] 29 ml/min/1.73sq m Abnormal >60 [facility] Comment on above: Order Comment: No: D o not add to previous draw Result Comment: Calc ulation may not be valid for patients over 70 years Performed By: #### 0 0071 #### [facility] [address] [place] [address], [place] GFR/1.73 sq M predicted among non-blacks MDRD (S/P/Bld) [Vol rate/Area] 24 ml/min/1.73sq m Abnormal >60 [facility] Comment on above: Order Comment: No: D o not add to previous draw Result Comment: Calc ulation may not be valid for patients over 70 years Performed By: #### 0 0071 #### [facility] [address] [place] [address], [facility] Glucose [Mass/Vol] 125 mg/dL High 70-100 [facility] Comment on above: Order Comment: No: D o not add to previous draw Performed By: #### 0 0071 #### [facility] [address] [place] [address], [place] Potassium [Moles/Vol] 2.8 mmol/L Low 3.5-5.1 [facility] Comment on above: Order Comment: No: D o not add to previous draw Performed By: #### 0 0071 #### [facility] [address] [place] [address], [place] Sodium [Moles/Vol] 135 mmol/L Low 136-145 [facility] Comment on above: Order Comment: No: D o not add to previous draw Performed By: #### 0 0071 #### [facility] [address] [place] [address], [place] Urea nitrogen [Mass/Vol] 62 mg/dL High 7-25 [facility] Comment on above: Order Comment: No: D o not add to previous draw Performed By: #### 0 0071 #### [facility] [address] [place] [address], [place] CBC COMPLETE BLOOD COUNTon Erythrocyte distribution width (RBC) [Ratio] 15.8 % High 11.5-15.0 [facility] Comment on above: Order Comment: No: D o not add to previous draw Performed By: #### 5 0608 #### [facility] [address] [place] [id number], [facility] Hematocrit (Bld) [Volume fraction] 24.7 % Low 36.0-45.0 [facility] Comment on above: Order Comment: No: D o not add to previous draw Performed By: #### 5 0608 #### [facility] [address] [facility] [place] [address], [facility] Hemoglobin (Bld) [Mass/Vol] 7.5 g/dL Low 12.0-15.0 [facility] Comment on above: Order Comment: No: D o not add to previous draw Performed By: #### 5 0608 #### [facility] [address] [place] [address], [facility] MCH (RBC) [Entitic mass] 26.8 pg Low 27.0-33.0 [facility] Comment on above: Order Comment: No: D o not add to previous draw Performed By: #### 5 0608 #### [facility] [address] [place] [id number], [facility] MCHC (RBC) [Mass/Vol] 30.4 g/dL Low 32.0-35.0 [facility] Comment on above: Order Comment: No: D o not add to previous draw Performed By: #### 5 0608 #### [facility] [address] [place] [id number], [facility] MCV (RBC) [Entitic vol] 88.2 fL Normal 82.0-98.0 [facility] Comment on above: Order Comment: No: D o not add to previous draw Performed By: #### 5 0608 #### [facility] [address] Nucleated RBC/100 WBC (Bld) [Ratio] 0 % Normal 0-0 [facility] Comment on above: Order Comment: No: D o not add to previous draw Performed By: #### 5 0608 #### [facility] [address] [place] [address], [facility] PLAT CNT 260 10*3/uL Normal 150-400 [facility] Comment on above: Order Comment: No: D o not add to previous draw Performed By: #### 5 0608 #### [facility] [address] [place] [address], [facility] RBC (Bld) [#/Vol] 2.80 10*6/uL Low 3.80-5.00 [facility] Comment on above: Order Comment: No: D o not add to previous draw Performed By: #### 5 0608 #### [facility] [address] [place] [address], [facility] WBC (Bld) [#/Vol] 8.14 10*3/uL Normal 4.00-10.60 [facility] Comment on above: Order Comment: No: D o not add to previous draw Performed By: #### 5 0608 #### [address] CHEST AND LATERALon 12-18-19 19 CHEST AND LATERAL [facility] Department of Radiology [address] [place] [id number] == Patient Name: JENIFER HERNANDEZ : 1940 Sex: F Age: Race: NA Pt. Location: OUTP Patient Status: I Ordered Date: 12/17/2018 11:15:00 AM Completed Date: 12/17/2018 01:00 PM Requesting Provider: BEVERLY BROCK Attending Provider: HERBER ALLEN V Report Copy To: Signs & Symptoms: Shortness of Breath History: See Comments Comments: R/O Effusion Exam: CHEST AND LATERAL == CHEST AND LATERAL 12/17/2018 1:00 PM EDT SIGNS AND SYMPTOMS: Shortness of Breath TECHNOLOGIST COMMENTS: shortness of breath patient states swelling in legs QUESTION FOR THE RADIOLOGIST: R/O Effusion PROTOCOL: AP(PA) and Lateral views were obtained. COMPARISON: None FINDINGS: Marked cardiomegaly with mild to moderate aortic tortuosity Mild venous and interstitial perihilar congestion Predominantly small right-sided effusion No definite pneumonia IMPRESSION: Cardiomegaly and mild CHF superimposed upon hyperinflated lungs Electronically signed by:Dori Olson. Transcribed by: [email or web address], User Resident: Electronically Signed by: DORI OLSON @ 12/17/2018 01:43 PM Normal [facility] Comment on above: Order Comment: R/O E ffusion History and Physicalon 12-17 History and Physical MR#: [id number] [facility] Pt. Name: Jenifer Hernandez Admitted: 12/17/2018 Date of : 1940 Attending Physician: Beverly Brock MD Room #: [id number] Discharge Date: HISTORY AND PHYSICAL CHIEF COMPLAINT: Shortness of breath. HISTORY OF PRESENT ILLNESS: This is an 78-year-old female with past medical history significant for diastolic congestive heart failure, history of coronary artery disease status post remote CABG, history of gastric/duodenal ulcer disease, and history of chronic atrial fibrillation, on Xarelto. The patient was evaluated with her environmental law professor recently for increased shortness of breath on simple daily activities like walking few steps from the garage to her home. She was found to be in exacerbation of her diastolic heart failure and her diuretic dosage was increased. She was sent to [facility] for an elective right heart catheterization which was done today and the patient was found to have an elevated right pulmonary capillary wedge pressure and Medicine was asked to admit the patient for her need of the management of her heart failure. The patient reports that after the increase of the Bumex dose recently, she was feeling better, but she is still not at her baseline. She still gets short of breath upon walking few steps or if she goes up a flight of stairs. She reports she has been also using 2-3 pillows to help her with sleep. She reports no paroxysmal nocturnal dyspnea. She is noticing increase in her weight and swelling of both legs, more on the right side. The patient reports on and off chest pain when she exerts herself. No palpitation. No lightheadedness. No nausea or vomiting. She does have on and off chills. No pain of both lower extremities. No change in her bowel or urinary habits. She reports no melena. The patient reports that she does have history of low hemoglobin in the past, for that she was seen by a general education instructor. She thinks that she had an EGD done earlier this year, which was positive for ulcers and for that she is on sucralfate and Protonix. She does not have any epigastric pain. She is unaware of what was her last hemoglobin levels. She reports being compliant with her medications. PAST MEDICAL HISTORY: Include chronic atrial fibrillation, on Xarelto, diastolic congestive heart failure, coronary artery disease status, post CABG, hypertension. PAST SURGICAL HISTORY: Include CABG and hysterectomy. SOCIAL HISTORY: The patient is a never smoker. She does not drink alcohol. No use of illicit drugs. She lives at her home. ALLERGIES: She reports an allergy to penicillin, Lasix, sulfa. MEDICATIONS AT HOME: Include Bumex 1 mg per oral in a.m. and 0.5 mg per oral at night. Cardizem 240 mg per oral daily, hydrochlorothiazide 25 mg per oral daily, lisinopril 20 mg per oral daily, Toprol 25 mg per oral b.i.d., Protonix 40 mg per oral daily, albuterol inhaler as needed, sucralfate 1 mg per oral q.6 hours, Xarelto 15 mg per oral daily, Lipitor 20 mg per oral daily. FAMILY HISTORY: Positive for brother having CVA. REVIEW OF SYSTEM: Review of systems of all points is done, pertinent positives and negatives as per HPI. PHYSICAL EXAMINATION: VITAL SIGNS: Blood pressure is 120/73, heart rate of 92, respiratory rate of 18, she is saturating 95% on room air. Temp is 97.2. GENERAL: She is an elderly white female, in no distress, lying in bed. HEENT: Pupils equal, round, and reactive to light. Extraocular muscles intact. Mucous membranes moist. NECK: Supple. No JVD. No LAD. HEART: Normal S1, S2. Regular rate and rhythm. No murmurs. LUNGS: Good air entry to both lungs with fine basal crackles at the bases of both lungs. Symmetric chest excursions. ABDOMEN: Soft, nontender, nondistended. Positive bowel sounds. NEUROLOGICAL: Speech is clear and coherent. No facial asymmetry. Muscle strength is 5/5 in both upper and lower limbs. EXTREMITIES: A +2 pitting edema up to the knees bilaterally. There is erythema on both legs, but more on the left side, which is hot to touch compared to right leg. Positive distal pulses bilaterally. PSYCH: Alert and oriented x3. SKIN: Warm/dry. LABORATORY DATA: Her BMP from yesterday done as an outpatient is showing sodium of 135, potassium is 3, her chloride 96, CO2 of 27, creatinine 1.8, blood sugars 138, her hemoglobin is 7.4, which is down from 10 that study was on August 16, 2018, white blood cell count is 8, platelets of 270. ASSESSMENT AND PLAN: 1. Acute on chronic diastolic congestive heart failure. Case discussed with Cardiology, the patient will be on Bumex IV b.i.d. The patient will be monitored in the step-down unit. She will be on heart failure diet with fluid restrictions. We will get an x-ray for the patient to rule out any effusions. We will get an echocardiogram to evaluate her valves and ejection fraction. 2. Normocytic anemia, the patient does have significant history for ulcers and she is on Protonix and sucralfate for that. There is a drop in her hemoglobin of 7.4 compared to July 2018, her hemoglobin was 10 at that time. The patient is hemodynamically stable. We will hold her Xarelto for now. We will get another reading of her CBC. We will check fecal occult blood test. If it is positive or if she is showing any signs of active bleeding, then we will ask our Gastroenterology Team to evaluate the patient. We will check another hemoglobin on her tomorrow in the morning. 3. Left leg cellulitis, we will start her on doxycycline given her history of penicillin allergy. CBC is pending. 4. Chronic atrial fibrillation, we will continue with her Cardizem and Toprol. Cardizem is not an ideal option for her given her history of heart failure. We will ask Cardiology to reconsider changing that for her. Xarelto will be on hold due to problem #2. 5. History of coronary artery disease status post CABG, the patient is on Toprol, statin. Unclear why the patient is not on antiplatelet, likely due to her history of gastric/duodenal ulcers. 6. Peptic ulcer disease, we will continue with sucralfate and Protonix. 7. Elevated creatinine, baseline is unknown, we will get another BMP on her today and compared to the reading that we have from yesterday and we will monitor her urine output. If she does have acute kidney injury, then we will consult Nephrology for further evaluation. Electronically Signed by: Beverly Brock MD 12/17/2018 05:32 P Beverly Brock MD Date Dict: 12/17/2018/11:34 A/Beverly Brock MD Date Trans: 12/17/2018 12:28 P/mmo [id number] Normal [facility] Encounters Encounter Date Encounter Type Care Provider Facility Start: 05-06-2023 End: 05-06-2023 ambulatory HERBER ALLEN [facility] Start: 04-25-2023 End: 04-25-2023 ambulatory SHAIKH KB Not Available Start: 01-31-2022 End: 02-01-[address] HERBER ALLEN Facility:[facility] Start: 01-18-2022 End: 01-18-2022 ambulatory PETR LUGO Facility:[facility] Start: 12-21-2021 End: 12-21-2021 ambulatory PETR LUGO Facility:[facility] Start: 11-15-[address] EDU ODONNELL [facility] ty:[facility] Start: 10-18-2021 End: 10-19-[address] EDU ODONNELL Facility:[facility] Start: 08-22-[address] EDU Antonio ty:[facility] Start: 08-18-2021 End: 08-19-2021 ambulatory LOGANRUI MORAN Facility:[facility] Start: 03-28-2021 End: 03-29-[address] DOCTOR LEGER Facility:[facility] Start: 03-07-2021 End: 03-08-2021 ambulatory LOGAN MORAN Facility:[facility] Start: 01-05-2019 End: 01-14-2019 Evaluation and management of inpatient KENNEDI MARSHALL Facility:[facility] Start: 12-17-2018 End: 12-24-2018 Evaluation and management of inpatient EDU BLAS Facility:[facility] Procedures Date Procedure Procedure Detail Performing Clinician Start: 01-12-2019 [facility], Single MOSHRIK ABD ALAMIR Start: 01-12-2019 ULTRASONOGRAPHY OF R IGHT AND LEFT HEART, TRANSESOPHAGEAL MOSHRIK ABD ALAMIR Start: 01-07-2019 MEASURE OF CARDIAC S AMPL \T\ PRESSURE, R HEART, PERC APPROACH MOSHRIK ABD ALAMIR Start: 12-19-2018 INSPECTION OF UPPER INTESTINAL TRACT, ENDO ALI T NAWRAS Start: 12-19-2018 TRANSFUSE NONAUT RED BLOOD CELLS IN PERIPH VEIN, PERC FLORENTINO AJ Start: 12-18-2018 Antibody screen EDU ODONNELL Comment on above: Performed By: #### [id number] #### [facility] [address] [place] [address], [facility] Start: 12-17-2018 MEASURE OF CARDIAC S AMPL \T\ PRESSURE, R HEART, PERC APPROACH HERBER V MOUKARBEL Start: 12-17-2018 MEASUREMENT OF ARTER IAL FLOW, PULMONARY, PERC APPROACH HERBER V MOUKARBEL Payers Date Payer Category Payer Medicare [id number] 1961 Self-pay 1961 Unknown [id number] 1940 Unknown [id number] 2.16.8 [id number] 1940 Unknown [id number] 2.16.8 [id number] 1940 Unknown [id number] 2.16.84 [id number] 1940 Unknown [id number] 2.16.84 [id number] 1938 Unknown [id number] 2.16.84 [id number] 1938 Unknown [id number] 2.16.84 [id number] 1938 Unknown [id number] 2.16.84 [id number] 1938 Unknown [id number] 2.16.84 [id number] 1938 Unknown [id number] 2.16.84 [id number] 1938 Unknown [id number] 2.16.84 [id number] 1938 Unknown [id number] 2.16.84 [id number] 1938 Unknown [id number] 2.16.84 [id number] Progress note 05-06-2023 Note Date & Type Note Facility 05-06-2023 Note [facility] Subjective Jenifer Hernandez is a 82 y.o. year old female patient being seen for 1.5 year follow up chronic diastolic heart failure, chronic afib, and CAD. She hasn't had any labs drawn in Jan 2022. No recent ED visits or imaging. Says her chest pain with exertion and ZAMARRIPA remain unchanged from last visit in Jan 2022. Denies bleeding issues on Xarelto. Says her BP is elevated in the office today because she hasn't taken her medications yet. BP on 04/25/2023 at PCP's office was 112/60, and she states she had taken her medications that day. She says PCP ordered labs for her. 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 She is 82-year-old woman with history of coronary disease status post bypass surgery in 2004. She has diastolic heart failure. She has chronic atrial fibrillation maintained on anticoagulation with Xarelto. Visit of 08/19/2018: Most recently she was valuated in cardiology clinic by Dr. Srinivasa Park and her thiazide diuretic therapy and spironolactone therapy was intensified. She notes that she has been having significant lower extremity edema and her weight is up 4 pounds since last visit. She has dyspnea on exertion, in NYHA class III. No chest pain. She says that in the past she was on lasix and did not do well on it. No allergy but she says she did not respond to it. She was admitted to [facility] with decompensated HF in 05/2018. Update 11/03/2018: I had reduced HCTZ and spironolactone dosing and added bumex 1 mg daily. Subsequent to that bumex was increased to 1 mg daily and then spironolactone was stopped. Most recently she has lost 7 pounds due to changes in the diuretic regimen. The leg swelling is much better. Her breathing is better. No angina. BMP 10/31/2018: K 3.7; BUN 41, Cr 1.41 (both slightly higher than baseline). Update 02/05/2019: She is seen in follow-up. In November 2018 she was admitted to the hospital with decompensated heart failure after a right heart catheter showed severely elevated filling pressures. She was diuresed accordingly. At that time she was noted to have anemia with drop in hemoglobin to 7.4 from a baseline of around 10-11. Endoscopy in December did not show any source of bleeding. She was found to have iron deficiency anemia. She received transfusion. In December she had another right heart catheterization that showed severely elevated filling pressures. She is taking iron supplementation. She says she is doing well. No chest pain. She has mild dyspnea on exertion. There is mild leg swelling. BMP 01/14/2019: BUN 22, creatinine 1.21, potassium 3.2. BMP 01/20/2019: BUN 50, creatinine 2.14, potassium 4.3. Update 03/23/2019: She is seen in follow-up. At last visit of 02/05/2019 I increased Bumex to 2 mg in a.m. and 1 mg in p.m. also due to the below results of BMP I ended up stopping lisinopril and potassium, then resuming potassium at 20 mEq every other day. She has picked up HCTZ prescription but not taking it. She has been having dyspnea on exertion and lower extremity edema. She says the dyspnea is limiting her. BMP 02/19/2019: Potassium 5.1, BUN 46, creatinine 2.18. I had her stop lisinopril and potassium. BMP 03/05/2019: Potassium 3.3, BUN 36, creatinine 1.45. I had her resume taking KCl 20 mEq every other day. BMP 03/20/2019: Potassium 3.5, BUN 35, creatinine 1.53. Update 12/29/2019: She is seen in follow-up via telemedicine. She has been getting worsening lower extremity edema and dyspnea. A couple of times she felt some chest pain. The leg swelling is mostly in the calves. She says she has water blisters. No bleeding. She is currently taking bumetanide 2 mg in a.m. and 1 mg in p.m. She has not had follow-up BMP that I ordered at last visit was March 2019. I had also checked a echocardiogram that showed severely elevated right-sided pressures and severe tricuspid regurgitation. She was supposed to have a follow-up with me sooner but never made it to that follow-up. Echocardiogram 04/09/2019: Global left ventricular systolic function is normal (Visually estimated EF 65-70%). Normal (more content not included)... [facility] Clinical Note 01-18-2022 Note Date & Type Note Facility 01-18-2022 Note OPERATIVE NOTE OPERATION DATE: 01/18/2022 SURGEON: Petr Lugo D.O. PREOPERATIVE DIAGNOSIS: Nuclear sclerotic cataract right eye. POSTOPERATIVE DIAGNOSIS: Nuclear sclerotic cataract right eye. PROCEDURE NAME: Cataract extraction with intraocular lens placement of the right eye. ANESTHESIA: Topical ESTIMATED BLOOD LOSS: Zero. COMPLICATIONS: None. PROCEDURE: The patient was brought to the Operating Room in supine position. After proper identification, the right eye was prepped and draped in a sterile ophthalmic fashion. A paracentesis created at the 11 o'clock position. Approximately 1 mL of unpreserved Xylocaine was injected into the anterior chamber followed by Amvisc Plus. Using a 2.6 mm Keratome blade, a clear corneal incision was created at the 9 o'clock limbus. A cystotome was then used to begin a curvilinear capsulorrhexis that was continued for 360 degrees with the Utrata forceps. BSS on a 26 gauge cannula was injected beneath the anterior capsule to hydrodissect as well as hydrodelineate the lens. After ensuring mobility, phacoemulsification was performed in a hdkqiwk-ubz-ccymqf-type fashion. After all nuclear material had been removed from the eye, IA was introduced and all residual cortical material was cleaned up. Additional Amvisc Plus was injected into the posterior bag and a lens model MX60, 21.0 diopters was injected and dialed into position. After ensuring centration, IA was introduced into the anterior chamber and all residual Amvisc Plus was removed from the eye. BSS on a 30 gauge cannula was injected into the stroma of both the clear corneal incision as well as paracentesis to hydrate the wounds. Additional BSS was injected into the anterior chamber to pressurize the eye at approximately 20 to 22 mmHg by finger tension. Weck-Rosalia sponges were used to check the wounds to be watertight and a shield was placed over top. The patient was sent to the postoperative area in satisfactory condition to follow up the following day for postoperative care. [facility] Clinical Note 01-18-2022 Note Date & Type Note Facility 01-18-2022 Note HISTORY AND PHYSICAL EXAMINATION Date:01/17/2022 HISTORY: The patient is an 81-year-old white female with complaints of declining vision out of her right eye. This has been occurring and ongoing for the last two years, gradually worsening over that timeframe. She notes most difficulty with reading and watching television. She also notes having difficulty at night time while driving with headlights creating glare and halos. PAST OCULAR HISTORY / PAST MEDICAL HISTORY / SOCIAL HISTORY / MEDICATIONS / ALLERGIES TO MEDICATIONS / REVIEW OF SYSTEMS and PHYSICAL EXAM: Unchanged from previously dictated. ASSESSMENT AND PLAN: 1. Visually significant cataract, right eye. After risks, benefits, alternatives, as well as expectations were delivered to the patient, she elected to go forward with cataract removal. She understands the risks include but not limited to infection, bleeding, loss of vision, loss of the eye itself. Secondly, she understands postoperatively she is likely to require spectacle correction for best visual acuity. Finally, a complete ophthalmic exam was performed, there is not determined to be any other source of visual decline other than that of the cataract. 2. COVID-19, the patient was briefed in the office and consented for elective cataract surgery in the setting of the pandemic of coronavirus. She understands that she is at heightened risk going into a hospital setting; however, feels that her activities of daily living are depleted severe enough by her cataracts that she is willing to incur this risk and go forward with her elective procedure. [facility] Clinical Note 12-21-2021 Note Date & Type Note Facility 12-21-2021 Note HISTORY AND PHYSICAL EXAMINATION Date:12/20/2021 HISTORY: Patient is an 81-year-old female with complaints of declining vision out of her left eye. She believes that this has been ongoing, gradually worsening over the last two years. She states tasks of activities of daily living such as reading, watching television have become more challenging. She states having difficulty with night time driving with the headlights creating glare and halos. PAST OCULAR HISTORY: Denies. PAST MEDICAL HISTORY: 1. Coronary artery disease. 2. Status post CABG x4. 3. Hypercholesterolemia. 4. Hypertension. 5. Heart surgery. 6. Hysterectomy. SOCIAL HISTORY: Denies tobacco, alcohol or recreational drug abuse. SYSTEMIC MEDICATIONS: Xarelto, Vitamin D2, ProAir, potassium, pantoprazole, metoprolol, magnesium, FeroSul, bumetanide, atorvastatin. ALLERGIES: To penicillin. REVIEW OF SYSTEMS: No pertinent positives. PHYSICAL EXAM: VITALS: Blood pressure measured at 134/83 with a respiratory rate of 12 and pulse of 86. GENERAL: She is awake, alert and oriented x3, well developed, well nourished, in no acute distress. HEART: Regular rate and rhythm. LUNGS: Clear bilaterally. ABDOMEN: Soft, non-tender, non-distended. EXTREMITIES: No pitting edema. OPHTHALMIC EXAM: Revealed a visual acuity of 20/70 that glared to 20/200 bilaterally. Pupils motility, muscle balance, confrontational visual carrera within normal limits bilaterally. Pressures measured at 16 bilaterally. Slit lamp exam revealed blepharitis with a severe decrease in tear film bilaterally. Conjunctiva, cornea, anterior chamber and iris were within normal limits bilaterally. Lens status demonstrated a 2+ nuclear sclerosis with 1+ cortical changes and vacuoles bilaterally. FUNDUS EXAM: Revealed good views with good dilation bilaterally. Optic discs, macula, vessels, periphery and vitreous were within normal limits bilaterally. ASSESSMENT AND PLAN: 1. Visually significant cataract of the left eye. After risks, benefits, alternatives, as well as expectations were delivered to the patient, she elected to go forward with cataract removal. She understands the risks include but not limited to infection, bleeding, loss of vision, loss of the eye itself. Secondly, she understands postoperatively she is likely to require spectacle correction for best visual acuity. Finally, a complete ophthalmic exam was performed, there is not determined to be any other source of visual decline other than that of the cataract. 2. COVID-19, the patient was briefed in the office and consented for elective cataract surgery in the setting of the pandemic of coronavirus. She understands that she is at heightened risk going into a hospital setting; however, feels that her activities of daily living are depleted severe enough by her cataracts that she is willing to incur this risk and go forward with her elective procedure. [facility] Clinical Note 12-21-2021 Note Date & Type Note Facility 12-21-2021 Note OPERATIVE NOTE OPERATION DATE: 12/21/2021 SURGEON: Petr Lugo M.D. PREOPERATIVE DIAGNOSIS: Nuclear sclerotic cataract left eye. POSTOPERATIVE DIAGNOSIS: Nuclear sclerotic cataract left eye. PROCEDURE: Cataract extraction with intraocular lens placed for the left eye. ANESTHESIA: Topical ESTIMATED BLOOD LOSS: Zero. COMPLICATIONS: None. PROCEDURE: The patient was brought to the Operating Room in supine position. After proper identification, the left eye was prepped and draped in a sterile ophthalmic fashion. A paracentesis was created at the 5 o'clock position. Approximately 1 mL of unpreserved Xylocaine was injected into the anterior chamber followed by Amvisc Plus. Using a 2.6 mm Keratome blade, a clear corneal incision was created at the 3 o'clock limbus. A cystotome was then used to begin a curvilinear capsulorrhexis that was continued for 360 degrees with the Utrata forceps. BSS on a 26 gauge cannula was injected beneath the anterior capsule to hydrodissect as well as hydrodelineate the lens. After ensuring mobility, phacoemulsification was performed in a zwuefus-gam-iasiyl-type fashion. After all nuclear material had been removed from the eye, IA was introduced and all residual cortical material was cleaned up. Additional Amvisc Plus was injected into the posterior bag and a lens model MX60, 21.0 diopters was injected and dialed into position. After ensuring centration, IA was introduced into the anterior chamber and all residual Amvisc Plus was removed from the eye. BSS on a 30 gauge cannula was then injected into the stroma of both the clear corneal incision as well as paracentesis to hydrate the wounds. Additional BSS was injected into the anterior chamber to pressurize the eye at approximately 20 to 22 mmHg by finger tension. 0.1 mL of antibiotic was injected into the anterior chamber and Weck-Rosalia sponges were used to check the wounds to be watertight. One drop of apraclonidine and one drop of prednisolone acetate were placed into the eye and a shield was placed over top. The patient was sent to the postoperative area in satisfactory condition to follow up the following day for postoperative care. [facility] Summary Purpose Family History No Family History Records FoundNo Family History Records FoundNo Family History Records FoundNo Family History Records FoundNo Family History Records Found Advance Directives No Advanced Directives Records FoundNo Advanced Directives Records FoundNo Advanced Directives Records FoundNo Advanced Directives Records FoundNo Advanced Directives Records Found Hospital Course Note MR#: [id number] [facility] Pt. Name: Jenifer Hernandez Admitted: 12/17/2018 Discharged: 12/24/2018 Date of : 1940 Physician: Florentino Gamboa MD DISCHARGE SUMMARY PRIMARY CARE PHYSICIAN: Edu Odonnell D.O. CONSULTING PHYSICIAN: [facility]. [facility]. [facility] FINAL DIAGNOSES: 1. Acute on chronic diastolic congestive heart failure, clinically compensated. 2. Acute iron deficiency anemia, status post transfusion, status post upper endoscopy. No evidence of bleeding. The patient will be discharged on supplement. 3. Bilateral lower extremity venous stasis cellulitis, resolving, off antibiotics, afebrile. 4. Chronic atrial fibrillation with rate controlled, on metoprolol and Cardizem along with Xarelto, asymptomatic. 5. Coronary artery disease with history of bypass grafting. Continue with home regimen. 6. Peptic ulcer disease on PPI, stable. 7. Acute kidney injury, resolved. HOSPITAL COURSE: This is an 78-year-old female with past medical (more content not included)... Note MR#: [id number] [facility] Pt. Name: Jenifer Hernandez Admitted: 01/05/2019 Discharged: 01/14/2019 Date of : 1940 Physician: Amy Head MD DISCHARGE SUMMARY PRIMARY CARE PHYSICIAN: Edu Odonnell. ADMITTING DIAGNOSES: 1. Acute kidney injury on chronic kidney disease. 2. Drug-induced symptomatic severe bradycardia with hemodynamic compromise. DISCHARGE DIAGNOSES: 1. Drug-induced symptomatic severe bradycardia with hemodynamic compromise. 2. 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 4. Severe pulmonary hypertension. 5. Severe tricuspid regurgitation. 6. Bilateral pleural effusion. 7. Chronic atrial fibrillation. 8. Chronic anticoagulation. 9. Iron deficiency normocytic anemia. 10. Physical deconditioning. HOSPITAL COURSE: She presented to the ED with complaints of exertional dizziness and lightheadedness for 2 days with being recently discharge (more content not included)... Note MR#: [id number] [facility] Pt. Name: Jenifer Hernandez Surgery Date: 12/19/2018 Room #: 3CD [id number] Date of : 1940 PROCEDURE NOTE ATTENDING: Sherry Mireles M.D. PROCEDURE: EGD. MEDICATION USED FOR THE PROCEDURE: Monitored sedation. INDICATION FOR THE PROCEDURE: Iron deficiency anemia. CONSENT: We had a thorough discussion with the patient about the step of the procedure and the possible complication including medication side effects, aspiration, perforation, bleeding. The patient understood the step of the procedure and verbalized her understanding and agreement. consent was signed by the patient after answering all the questions. DESCRIPTION OF THE PROCEDURE: Adult endoscope was introduced through the patient's mouth after achieving proper sedation. Successful intubation of the esophagus without any complication. The scope was advanced to the first part of the esophagus and then the second part of the esophagus, and then third part of the esophagus. Part (more content not included)... Procedure Findings Note MR#: [id number] [facility] Pt. Name: Jenifer Hernandez Surgery Date: 12/19/2018 Room #: 3CD [id number] Date of : 1940 PROCEDURE NOTE ATTENDING: Sherry Mireles M.D. PROCEDURE: EGD. MEDICATION USED FOR THE PROCEDURE: Monitored sedation. INDICATION FOR THE PROCEDURE: Iron deficiency anemia. CONSENT: We had a thorough discussion with the patient about the step of the procedure and the possible complication including medication side effects, aspiration, perforation, bleeding. The patient understood the step of the procedure and verbalized her understanding and agreement. consent was signed by the patient after answering all the questions. DESCRIPTION OF THE PROCEDURE: Adult endoscope was introduced through the patient's mouth after achieving proper sedation. Successful intubation of the esophagus without any complication. The scope was advanced to the first part of the esophagus and then the second part of the esophagus, and then third part of the esophagus. Part (more content not included)... Additional Source Comments INFORMATION SOURCE (unrecogn ized section and content) DATE CREATED AUTHOR 04/10/2019 [facility] DATE CREATED AUTHOR AUTHOR'S ORGANIZ ATION 05/07/2021 [facility] DATE CREATED AUTHOR AUTHOR'S ORGANIZ ATION 02/07/2022 [facility] DATE CREATED AUTHOR AUTHOR'S ORGANIZ ATION 04/26/2023 [facility] DATE CREATED AUTHOR AUTHOR'S ORGANIZ ATION 05/06/2023 [facility] FOR RECORDS PERTAINING TO PATIENTS WHO ARE OR HAVE BEEN ENROLLED IN A CHEMICAL DEPENDENCY/SUBSTANCEABUSE PROGRAM, SOME INFORMATION MAY BE OMITTED. This clinical summary was aggregated from multiple sources. Caution should be exercised in using it in the provision of clinical care. This summary normalizes information from multiple sources, and as a consequence, information in this document may materially change the coding, format and clinical context of patient data. In addition, data may be omitted in some cases. CLINICAL DECISIONS SHOULD BE BASED ON THE PRIMARY CLINICAL RECORDS. [facility] NP [employer] [facility]. provides no warranty or guarantee of the accuracy or completeness of information in this document.
--- NOTE | 2023-05-22 08:30 | CA_ITS ---
Patient Name: RICK HERNANDEZ MR#: [id number] : 1940 Exam Date: 05/22/2023 Ordering Doctor: DR HERBER ALLEN M.D. ECHOCARDIOGRAM REPORT PROCEDURE: CA ECHO DOPPLER COMPLETE INDICATIONS: Chest pain, dyspnea, CABGx4, atrial fibrillation, hypertension COMPARISON: None. DESCRIPTION: COMPLETE ECHOCARDIOGRAM Real-time transthoracic echocardiography with 2D, M-mode, spectral and color flow Doppler performed. QUALITY: Technical quality was good. 64 , 160#, BSA 1.78 m2, BP 144/68 LEFT VENTRICLE: Normal chamber size. Normal left ventricular wall thickness. D-shaped septum consistent with right ventricular pressure and volume overload. LV EF: Global left ventricular systolic function is hyperdynamic; visually estimated ejection fraction is 65 to 70% DIASTOLIC: Not adequately assessed due to heart rhythm. ATRIAL SEPTUM: Visually appears intact. LEFT ATRIUM: Severe dilatation. RIGHT ATRIUM: Severe dilatation. RIGHT VENTRICLE: Normal chamber size. Normal right ventricular systolic function. TRICUSPID VALVE: Normal mobility and thickness. Moderate to severe regurgitation. Doppler studies reveal severely (>60) elevated right sided pressures. RVSP 67 mmHg MITRAL VALVE: Mildly thickened with normal mobility. No evidence of mitral valve stenosis. There is no mitral annular calcification. Moderate mitral regurgitation. AORTIC VALVE: Normal trileaflet appearance. Moderately calcified aortic valve with diminished mobility. No significant mitral stenosis. Mild aortic regurgitation. AORTIC ROOT: Normal diameter and appearance. PULMONIC VALVE: Normal thickness and mobility. No stenosis. Mild to moderate regurgitation. PERICARDIUM: No evidence of pericardial effusion. IVC: IVC is dilated (2.6 cm), does not collapse. CONCLUSION: 1. Global left ventricular systolic function is hyperdynamic; visually estimated ejection fraction is 65 to 70% 2. Normal right ventricular size and systolic function 3. Severe biatrial enlargement 4. Moderate to severe tricuspid regurgitation 5. Severely elevated right ventricular systolic pressure; RVSP 67 mmHg 6. Moderate mitral regurgitation 7. Mild aortic valve regurgitation 8. Mild to moderate pulmonic regurgitation Adult Echocardiography Procedure Report Left Ventricle LVEDD (3.7 - 5.6 cm): 4.32 cm LVESD (2.2 - 4.0 cm): 2.93 cm LVIVS thickness (0.6 - 1.2 cm): 1.01 cm LVPW thickness (0.5 - 1.0 cm): 0.95 cm LVOT Max Gradient: 3.02 mm[Hg] LVOT Area (cm2): 0.87 m/s Peak Velocity (LVOT): 0.87 m/s Mean Velocity (LVOT): 0.67 m/s LVOT Diameter 1.60 cm Left Atrium LA Volume Index (2D A2C): 81.31 ml/m2 Left Atrium Systolic Dimension: 4.92 cm Mitral Valve Mitral Valve E-Wave Peak Velocity: 1.09 m/s Right Ventricle Aorta AO Root Diam: 3.28 cm Ascending Ao Diam: 2.85 cm Aortic Valve AoV Area (Peak Robin): 1.05 cm2, 1.05 cm2 AoV Area (VTI): 1.09 cm2, 1.09 cm2 Peak Velocity(Antegrade Flow): 1.65 m/s Peak Gradient(Antegrade Flow): 10.89 mm[Hg] Mean Velocity(Antegrade Flow): 1.13 m/s Mean Gradient(Antegrade Flow): 6.02 mm[Hg] Velocity Time Integral: 36.02 cm Tricuspid Valve Peak Velocity (Regurgitant Flow): 3.06 m/s, 3.60 m/s Pulmonic Valve Peak Velocity: 0.97 m/s Peak Gradient: 4.18 mm[Hg], 3.35 mm[Hg] Right Atrium Right Atrium Systolic Pressure: 166.14 ml, 166.14 ml Dictated by: Christi Ravi M.D. on 05/22/2023 at 14:13 Approved by: Christi Ravi M.D. on 05/22/2023 at 14:20
[2023-05-22] MEDS: REGADENOSON 0.4 MG/5 ML SYRINGE 0.400000000000000022 MG IV (10:09)
== END 2023-05-22 08:26 | disposition home or self-care (01) ==
LOC: NM 08:25
PROVIDERS: PCP Internal Medicine; Visit Provider Internal Medicine Interventional Cardiology
DX: R06.02 Shortness of breath (principal); I25.118 Atherosclerotic heart disease of native coronary artery with other forms of angina pectoris; Z95.1 Presence of aortocoronary bypass graft; I50.32 Chronic diastolic (congestive) heart failure
CPT/HCPCS: 78452; 93017; 93306; A9500; J2785

== ENCOUNTER 2023-09-18 13:21 | Outpatient (OUT) | payer MEDICARE, OTHER, SELFPAY ==
--- OUTSIDE RECORDS SUMMARY | 2023-09-18 13:35 | XMS_ITS | CCD ---
Author Organization [facility] Care Team Providers Care Manufacturing Applications Engineer Name Role Phone BLASEDU Referring Unavailable HOUSE, EDU Primary Care Unavailable ERASTO CANALES Admitting Unavailable AJ, FLORENTINO Attending Unavailable ND Procedure Practitioner Unavailab le UNKNOWN, PROVIDER Surgeon Unavailable ND Procedure Practitioner Unavailab le NAWRSHERRY PERALTA Surgeon Unavailable ND Procedure Practitioner Unavailab le AJ, FLORENTINO Surgeon Unavailable KENNEDI MARSHALL Admitting Unavailable BLAS, EDU Primary Care Unavailable SELF, REFERRED Referring Unavailable MEGHAN HEAD Attending Unava ilable ND Procedure Practitioner Unavailab le KEVON COLON Surgeon Unavailable DEAN, LOGAN K Attending Unavailable DEAN, LOGAN K Consulting Unavailable DEAN, LOGAN K Admitting Unavailable HOUSE, DR SALAMANCA Primary Care Unavailable MOUKARBEL, DR CRAVEN Admitting Unavailable MOUKARBEL, DR CRAVEN Attending Unavailable MOUKARBEL, DR CRAVEN Consulting Unavailable HOUSE, DR SALAMANCA Primary Care Unavailable HOUSE, DR SALAMANCA Primary Care Unavailable MOUKARBEL, DR CRAVEN Admitting Unavailable MOUKARBEL, DR CRAVEN Attending Unavailable MOUKARBEL, DR CRAVEN Consulting Unavailable ZAHLERPETR Attending Unavailable ZAHLERPETR Consulting Unavailable ZAHLERPETR Admitting Unavailable HOUSE, DR SALAMANCA Primary Care Unavailable ZAHLER, PETR Consulting Unavailable ZAHLERPETR Admitting Unavailable HOUSE, DR SALAMANCA Primary Care Unavailable ZAPETR GRAY Attending Unavailable HOUSE, DR SALAMANCA Primary Care Unavailable MOUKARBEL, DR CRAVEN Admitting Unavailable MOUKARBEL, DR CRAVEN Attending Unavailable HOUSE, DR SALAMANCA Primary Care Unavailable MOUKARBEL, DR CRAVEN Attending Unavailable MOUKARBEL, DR CRAVEN Admitting Unavailable DEAN, LOGAN K Attending Unavailable DEAN, LOGAN K Consulting Unavailable DEAN, LOGAN K Admitting Unavailable HOUSE, DR SALAMANCA Primary Care Unavailable MISC, DR PROCTOR Attending Unavailable MISC, DR PROCTOR Consulting Unavailable MISC, DR PROCTOR Admitting Unavailable HOUSE, DR SALAMANCA Primary Care Unavailable SHAIKH QUILES Attending Unavailable SHAIKH QUILES Attending Unavailable HERBER ALLEN Attending Unavailable HERBER ALLEN Attending Unavailable HERBER ALLEN Admitting Unavailable HERBER ALLEN Attending Unavailable HERBER ALLEN Referring Unavailable Allergies Allergy Classification Reported Allergen(s) Allergy Type Date of Onset Reaction(s) Facility (3 sources) Furosemide Drug Allergy 12-17-2018 [facility] (2 sources) Penicillins; Translations: [PENICILLINS] Drug allergy (disorder) 12-29-2008 [facility] (3 sources) Sulfonamides (Antibiotic); Translations: [SULFA (SULFONAMIDE ANTIBIOTICS)] Drug allergy (disorder) 12-17-2018 [facility] (1 source) Penicillin Drug Allergy [facility]ository (1 source) Furosemide; Translations: [FUROSEMIDE] Drug Allergy 02-01-2022 [facility] Problems Active Problems Problem Classification Problem [...] disease (3 sources) 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; Translations: [Atherosclerotic heart disease of yuhaaviatam coronary artery with other forms of angina pectoris] Onset: 2 Chronic Disorders of lipid metabolism (1 source) Pure hypercholesterolemia, unspecified; Translations: [PURE HYPERCHOLESTEROLEMIA UNSPEC] Onset: 2 Chronic Essential hypertension (3 sources) Essential (primary) hypertension; Translations: [ESSENTIAL PRIMARY HYPERTENSION] Onset: 2 Chronic Heart valve disorders (4 sources) Nonrheumatic mitral (valve) insufficiency; Translations: [Nonrheumatic tricuspid (valve) insufficiency] Onset: 4 Chronic Pulmonary heart disease (2 sources) Pulmonary hypertension, unspecified; Translations: [Pulmonary hypertension, unspecified] Onset: 4 Chronic Residual codes; unclassified (1 source) Acquired absence of both cervix and uterus; Translations: [ACQUIRED ABSENCE BOTH CERVIX AND UTERUS] Onset: 2 Episodic Unclassified (2 sources) Permanent atrial fibrillation; Translations: [Permanent atrial fibrillation] Onset: 4 Past or Other Problems Problem Classification Problem Date Documented Da te Episodic/Chronic Coronary atherosclerosis and other heart disease (3 sources) Presence of aortocoronary bypass graft; Translations: [PRESENCE AORTOCORONARY BYPASS GRAFT] Onset: 12-27-2021 Episodic Other and unspecified benign neoplasm (1 source) Hemangioma unspecified site; Translations: [HEMANGIOMA UNSPECIFIED SITE] Onset: 04-03-2021 Episodic Other lower respiratory disease (2 sources) Shortness of breath; Translations: [Shortness of breath] Onset: 05-06-2023 Episodic Other skin disorders (4 sources) Sebaceous cyst; Translations: [SEBACEOUS CYST] Onset: 03-28-2021 Episodic Results Test Name Value Interpretation Reference Range Facility BASIC METABOLIC PANELon 08-19 Anion gap [Moles/Vol] 12 mmol/L Normal 7-20 [facility] Comment on above: Performed By: #### L [id number] #### [facility] ([facility]) [address] [place] [address] Calcium [Mass/Vol] 9.3 mg/dL Normal 8.6-10.3 [facility] Comment on above: Performed By: #### L [id number] #### [facility] ([facility] [address] [place] [address] Chloride [Moles/Vol] 100 mmol/L Normal 98-107 [facility] Comment on above: Performed By: #### L [id number] #### [facility] ([facility]) [address] [place] [address] CO2 [Moles/Vol] 30 mmol/L Normal 21-31 [facility] Comment on above: Performed By: #### L [id number] #### [facility] ([facility]) [address] [place] [address] Creatinine [Mass/Vol] 1.30 mg/dL High 0.60-1.20 [facility] Comment on above: Performed By: #### L [id number] #### [facility] ([facility]) [address] [place] [address] GLOMERULAR FILTRATION RATE ML/MIN/1.73 SQ M.PREDICTED 40.3 mL/min/1.73m*2 Low >60.0 [facility] Comment on above: Result Comment: [facility]???s estimated glomerular filtration rate (eGFR) will no longer include consideration of race in its calculation. The National Kidney Foundation???s eGFR Task Force developed new recommendations for the estimation of the glomerular filtration rate in the [place] They recommend immediate implementation of the new equation refit without the race variable in all laboratories because the calculation does not include race. In addition to not including race in the calculation and reporting, it included diversity in its development, and has acceptable performance characteristics and potential consequences that do not disproportionately affect any one group of individuals. Performed By: #### L [id number] #### [facility] ([facility]) [address] [place] [address] Glucose [Mass/Vol] 130 mg/dL High 70-100 [facility] Comment on above: Performed By: #### L [id number] #### [facility] ([facility]) [address] [place] [address] Potassium [Moles/Vol] 3.4 mmol/L Low 3.5-5.1 [facility] Comment on above: Performed By: #### L [id number] #### [facility] ([facility]) [address] [place] [address] Sodium [Moles/Vol] 139 mmol/L Normal 136-145 [facility] Comment on above: Performed By: #### L [id number] #### [facility] ([facility]) [address] [place] [address] Urea nitrogen [Mass/Vol] 34 mg/dL High 7-25 [facility] Comment on above: Performed By: #### L [id number] #### [facility] ([facility]) [address] [place] [address] UREA NITROGEN/CREATININE (MASS RATIO) IN SER/PLAS 26.2 Normal [facility] Comment on above: Performed By: #### L [id number] #### [facility] ([facility]) [address] [facility] [place] [address] CBC WITH AUTO DIFFERENTIALon 09-10-2023 Basophils (Bld) [#/Vol] 0.04 10*3/uL Normal 0.00-0.20 [facility] Comment on above: Performed By: #### L [id number] #### [facility] ([facility]) [address] [place] [address] Basophils/100 WBC (Bld) 0.6 % Normal 0.0-1.0 [facility] Comment on above: Performed By: #### L [id number] #### [facility] ([facility]) [address] [place] [address] Eosinophils (Bld) [#/Vol] 0.15 10*3/uL Normal 0.00-0.50 [facility] Comment on above: Performed By: #### L [id number] #### [facility] ([facility]) [address] [place] [address] Eosinophils/100 WBC (Bld) 2.2 % Normal 0.0-6.0 [facility] Comment on above: Performed By: #### L [id number] #### [facility] ([facility]) [address] [place] [address] Erythrocyte distribution width (RBC) [Ratio] 14.4 % Normal 11.5-15.0 [facility] Comment on above: Performed By: #### L [id number] #### [facility] ([facility]) [address] [place] [address] ERYTHROCYTE MEAN CORPUSCULAR HEMOGLOBIN CONCENTRATION (G/DL) BY AUTOMATED 32.7 g/dL Normal 32.0-35.0 [facility] Comment on above: Performed By: #### L [id number] #### [facility] ([facility]) [address] [place] [place] [address] Hematocrit (Bld) [Volume fraction] 37.6 % Normal 36.0-48.0 [facility] Comment on above: Performed By: #### L [id number] #### [facility] ([facility]) [address] [place] [address] Hemoglobin (Bld) [Mass/Vol] 12.3 g/dL Normal 12.0-15.0 [facility] Comment on above: Performed By: #### L [id number] #### [facility] ([facility]) [address] [place] [address] Immature granulocytes (Bld) [#/Vol] 0.02 10*3/uL Normal 0.00-0.20 [facility] Comment on above: Performed By: #### L [id number] #### [facility] ([facility]) [address] [place] [address] Immature granulocytes/100 WBC (Bld) 0.3 % Normal 0.0-1.0 [facility] Comment on above: Performed By: #### L [id number] #### [facility] ([facility]) [address] [place] [address] Lymphocytes (Bld) [#/Vol] 1.10 10*3/uL Low 1.20-4.00 [facility] Comment on above: Performed By: #### L [id number] #### [facility] ([facility]) [address] [place] [address] Lymphocytes/100 WBC (Bld) 16.3 % Low 20.0-45.0 [facility] Comment on above: Performed By: #### L [id number] #### [facility] ([facility]) [address] [place] [address] MCH (RBC) [Entitic mass] 32.6 pg Normal 27.0-33.0 [facility] Comment on above: Performed By: #### L [id number] #### [facility] ([facility]) [address] [place] [address] MCV (RBC) [Entitic vol] 99.7 fL High 82.0-98.0 [facility] Comment on above: Performed By: #### L [id number] #### [facility] ([facility]) [address] [place] [address] Monocytes (Bld) [#/Vol] 0.92 10*3/uL Normal 0.10-1.00 [facility] Comment on above: Performed By: #### L [id number] #### [facility] ([facility]) [address] [place] [address] Monocytes/100 WBC (Bld) 13.6 % High 5.0-12.0 [facility] Comment on above: Performed By: #### L [id number] #### [facility] ([facility]) [address] [place] [address] Neutrophils (Bld) [#/Vol] 4.53 10*3/uL Normal 1.60-7.60 [facility] Comment on above: Performed By: #### L [id number] #### [facility] ([facility]) [address] [place] [address] Neutrophils/100 WBC (Bld) 67.0 % Normal 40.0-72.0 [facility] Comment on above: Performed By: #### L [id number] #### [facility] ([facility]) [address] [place] [address] NRBC (PER 100 WBCS) BY AUTOMATED COUNT 0.0 % Normal 0 [facility] Comment on above: Performed By: #### L [id number] #### [facility] ([facility]) [address] [place] [address] PLATELETS (10*3/UL) IN BLOOD AUTOMATED COUNT 163 10*3/uL Normal 150-400 [facility] Comment on above: Performed By: #### L [id number] #### [facility] ([facility]) [address] [place] [address] RBC (Bld) [#/Vol] 3.77 10*6/uL Low 3.80-5.00 [facility] Comment on above: Performed By: #### L [id number] #### [facility] ([facility]) [address] [place] [address] WBC (Bld) [#/Vol] 6.76 10*3/uL Normal 4.00-10.60 [facility] Comment on above: Performed By: #### L [id number] #### [facility] ([facility]) [address] [place] [address] HPon 09-10-2023 HP History Of Present Illness Jenifer Hernandez is a 83 y.o. female presenting with a past medical history of chronic atrial fibrillation, HFpEF, CAD s/p CABG in 2004, hypertension, nonrheumatic tricuspid valve regurgitation, mitral valve regurgitation, hyperlipidemia and CKD presenting for further evaluation with ADWOA, and right heart cath. Past Medical History She has a past medical history of Atrial fibrillation (CMS/HCC), Coronary artery disease, and Heart valve disease. Surgical History She has a past surgical history that includes Coronary artery bypass graft and Cardiac catheterization. Social History She reports that she has never smoked. She has never used smokeless tobacco. She reports that she does not currently use alcohol. No history on file for drug use. Allergies Furosemide, Penicillins, and Sulfa (sulfonamide antibiotics) Medications Medications Prior to Admission Medication Sig Dispense Refill Last Dose atorvastatin (Lipitor) 20 mg tablet atorvastatin 20 mg tablet take 1 tablet by mouth once daily 09/09/2023 bumetanide (Bumex) 2 mg tablet take 1 AND 1/2 TABLETS BY MOUTH TWICE A DAY 270 tablet 3 09/09/2023 ergocalciferol (Vitamin D-2) 1.25 MG (78006 Units) capsule Vitamin D2 1,250 mcg (50,000 unit) capsule Past Week ferrous sulfate 325 (65 Fe) MG tablet FeroSul 325 mg (65 mg iron) tablet take 1 tablet by mouth once daily 09/09/2023 isosorbide mononitrate ER (Imdur) 30 mg 24 hr tablet Take 1 tablet (30 mg) by mouth in the morning. Do not crush or chew. 90 tablet 3 09/10/2023 magnesium oxide (Mag-Ox) 400 mg (241.3 mg magnesium) tablet magnesium oxide 400 mg (241.3 mg magnesium) tablet take 1 tablet by mouth once daily 09/09/2023 metoprolol tartrate (Lopressor) 100 mg tablet metoprolol tartrate 100 mg tablet TAKE 1 AND 1/2 TABLETS BY MOUTH TWICE A DAY 09/10/2023 pantoprazole (ProtoNix) 40 mg EC tablet Take 40 mg by mouth in the morning. 09/09/2023 potassium chloride CR (Klor-Con M20) 20 mEq ER tablet Take 20 mEq by mouth once daily as directed. 09/09/2023 rivaroxaban (Xarelto) 15 mg tablet Xarelto 15 mg tablet take 1 tablet by mouth once daily 09/09/2023 albuterol 90 mcg/actuation inhaler ProAir HFA 90 mcg/actuation aerosol inhaler More than a month Review of Systems Cardiovascular: Positive for dyspnea on exertion and leg swelling. Neurological: Positive for dizziness. Physical Exam Constitutional: Appearance: She is well-developed. She is not ill-appearing. HENT: Head: Normocephalic and atraumatic. Nose: Nose normal. Eyes: General: No scleral icterus. Pupils: Pupils are equal, round, and reactive to light. Neck: Thyroid: No thyromegaly. Vascular: No JVD. Cardiovascular: Rate and Rhythm: Normal rate. Rhythm irregularly irregular. Pulses: Radial pulses are 2+ on the right side and 2+ on the left side. Heart sounds: Murmur heard. Systolic (LLSB) murmur is present with a grade of 2/6. No friction rub. No gallop. Pulmonary: Effort: Pulmonary effort is normal. No respiratory distress. Breath sounds: Normal breath sounds. No wheezing or rales. Chest: Chest wall: No tenderness. Abdominal: General: Bowel sounds are normal. There is no distension. Palpations: Abdomen is soft. Tenderness: There is no abdominal tenderness. Musculoskeletal: General: No swelling. Cervical back: Neck supple. Right lower le+ Pitting Edema present. Left lower le+ Pitting Edema present. Skin: General: Skin is warm and dry. Neurological: General: No focal deficit present. Mental Status: She is alert and oriented to person, place, and time. Psychiatric: Mood and Affect: Mood normal. Behavior: Behavior is cooperative. Judgment: Judgment normal. Last Recorded Vitals Blood pressure 106/65, pulse 65, resp. rate 14, SpO2 90 %. Relevant Results Stress test 05/22/2023: No acute or reversible ischemia, suspect breast attenuation artifact affecting the anterior wall of the heart rather than mild fixed ischemia. Normal wall motion, left ventricular size and ejection fraction. EF 75%. Equivocal stress test for Lexiscan induced ischemia due to baseline ECG abnormalities. There was slight worsening of the ST segment depressions seen with Lexiscan infusion. Echocardiogram 05/22/2023: Global left ventricular systolic function is hyperdynamic, visually estimated ejection fraction is 65 to 70%. Normal right ventricular size and systolic function. Severe biatrial enlargement. Moderate to severe tricuspid regurgitation. Severely elevated right ventricular systolic pressure, RVSP 67 mmHg. Moderate mitral regurgitation. Mild aortic valve regurgitation. Mild to moderate pulmonic regurgitation. Prior testing: Echocardiogram 06/12/2018: Patient in atrial fibrillation, there is mild left ventricular hypertrophy with normal ejection fraction. There is massive biatrial enlargement. Right ventricular function appears normal. There is moderate mitral and tri (more content not included)... Normal [facility] NURSNOTEon 09-10-2023 NURSNOTE RN educated pt on d/ c instructions. RN encouraged pt to voice any questions or concerns. Pt verbalizes no questions or concerns at this time. [facility] ALISON Spoke with Dr. Brii macias and john to discharge pt at 1600. [facility] Office Visiton 06-14-2023 Follow-up visit [id number] Jenifer Hernandez 1940 Date Provider Department Center 06/14/2023 HERBER BERMUDEZ [facility] Family History Problem Relation Age of Onset Other Father Stroke Brother Family Status - Relation Status Age at Father Brother Level of Service:06492 [place] OFFICE/OUTPATIENT ESTABLISHED HIGH MDM 40 MIN Reason for Visit and Comments: Follow-up [711754] - 1 month- stress/echo [facility] Office Visiton 05-06-2023 Follow-up visit [id number] Jenifer Hernandez 1940 F Date Provider Department Center 05/06/2023 HERBER BERMUDEZ [facility] Family History Problem Relation Age of Onset Other Father Stroke Brother Family Status - Relation Status Age at Father Brother Level of Service:06959 ND OFFICE/OUTPATIENT ESTABLISHED MOD MDM 30 MIN Normal [facility] PROF CHEM 8 (BAS METB)on Anion gap [Moles/Vol] 13.7 mmol/L Normal [facility] Comment on above: Performed By: #### B MP #### [facility] [address] [address] [address] Vega Sorensen Calcium [Mass/Vol] 9.2 mg/dL Normal 8.5-10.1 [facility] Comment on above: Performed By: #### B MP #### [facility] [address] [address] [address] Vega Sorensen Chloride [Moles/Vol] 100 mmol/L Normal 98-107 [facility] Comment on above: Performed By: #### B MP #### [facility] [address] [address] [address] Vega Sorensen CO2 [Moles/Vol] 30.2 mmol/L Normal 21.0-32.0 [facility] Comment on above: Performed By: #### B MP #### [facility] [address] [address] [address] Vega Sorensen Creatinine [Mass/Vol] 1.69 mg/dL Critically high 0.55-1.02 [facility] Comment on above: Performed By: #### B MP #### [facility] [address] [address] [address] Vega Sorensen EGFR-AF FAROESE 35 mL/min/1.73m2 Critically low >=60 [facility] Comment on above: Performed By: #### B MP #### [facility] [address] [address] [address] Vega Sorensen EGFR-NON AF FAROESE 29 mL/min/1.73m2 Critically low >=60 [facility] Comment on above: Performed By: #### B MP #### [facility] [address] [address] [address] Vega Sorensen Glucose [Mass/Vol] 162 mg/dL Critically high 74-106 [facility] Comment on above: Performed By: #### B MP #### [facility] [address] [address] [address] Vega Sorensen Potassium [Moles/Vol] 3.9 mmol/L Normal 3.5-5.1 [facility] Comment on above: Performed By: #### B MP #### [facility] [address] [address] [address] Vega Sorensen Sodium [Moles/Vol] 140 mmol/L Normal 136-145 [facility] Comment on above: Performed By: #### B MP #### [facility] [address] [address] [address] Vega Sorensen Urea nitrogen [Mass/Vol] 36.0 mg/dL Critically high 7.0-18.0 [facility] Comment on above: Performed By: #### B MP #### [facility] [address] [address] [address] Vega Sorensen Urea nitrogen/Creatinine [Mass ratio] 21.3 mg/mg Normal [facility] Comment on above: Performed By: #### B MP #### [facility] [address] [address] [address] Vega Sorensen PROF CHEM 8 (BAS METB)on Anion gap [Moles/Vol] 14.6 mmol/L Normal [facility] Comment on above: Performed By: #### B MP ####[facility] [id number] [address]Dr[address] Vega Sorensen Calcium [Mass/Vol] 9.1 mg/dL Normal 8.5-10.1 [facility] Comment on above: Performed By: #### B MP ####[facility] [id number] [address]Dr[address] Vega Sorensen Chloride [Moles/Vol] 99 mmol/L Normal 98-107 [facility] Comment on above: Performed By: #### B MP ####[facility] [id number] [address]Dr[address] Vega Sorensen CO2 [Moles/Vol] 28.8 mmol/L Normal 21.0-32.0 [facility] Comment on above: Performed By: #### B MP ####[facility] [id number] [id number][address] Vega Sorensen Creatinine [Mass/Vol] 1.63 mg/dL Critically high 0.55-1.02 [facility] Comment on above: Performed By: #### B MP ####[facility] [id number] [id number][address] Vega Sorensen EGFR-AF FAROESE 37 mL/min/1.73m2 Critically low >=60 [facility] Comment on above: Performed By: #### B MP ####[facility] [id number] [address]Dr[address] Vega Sorensen EGFR-NON AF FAROESE 30 mL/min/1.73m2 Critically low >=60 [facility] Comment on above: Performed By: #### B MP ####[facility] [id number] [place] [address]Dr. Vega Sorensen Glucose [Mass/Vol] 143 mg/dL Critically high 74-106 [facility] Comment on above: Performed By: #### B MP ####[facility] [id number] [place] [address]Dr. Vega Sorensen Potassium [Moles/Vol] 3.4 mmol/L Critically low 3.5-5.1 [facility] Comment on above: Performed By: #### B MP ####[facility] [id number] [place] [id number]. Vega Sorensen Sodium [Moles/Vol] 139 mmol/L Normal 136-145 [facility] Comment on above: Performed By: #### B MP ####[facility] [address] [place] [address]Dr. Vega Sorensen Urea nitrogen [Mass/Vol] 38.0 mg/dL Critically high 7.0-18.0 [facility] Comment on above: Performed By: #### B MP ####[facility] [id number] [place] [address]Dr. Vega Sorensen Urea nitrogen/Creatinine [Mass ratio] 23.3 mg/mg Normal [facility] Comment on above: Performed By: #### B MP ####[facility] [address] [place] [id number]. Vega Sorensen BNPon 08-18-2021 Natriuretic peptide B (Bld) [Mass/Vol] 5150.0 pg/mL Critically high <=1,800.0 [facility] Comment on above: Performed By: #### B MP, BNP #### [facility] [address] [address] [address] Vega Sorensen PROF CHEM 8 (BAS METB)on Anion gap [Moles/Vol] 12.9 mmol/L Normal [facility] Comment on above: Performed By: #### B MP, BNP #### [facility] [address] [address] [address] Vega Sorensen Calcium [Mass/Vol] 9.0 mg/dL Normal 8.5-10.1 [facility] Comment on above: Performed By: #### B MP, BNP #### [facility] [address] [place] [address] Dr. Vega Sorensen Chloride [Moles/Vol] 102 mmol/L Normal 98-107 [facility] Comment on above: Performed By: #### B MP, BNP #### [facility] [address] [address] [address] Vega Sorensen CO2 [Moles/Vol] 30.2 mmol/L Normal 21.0-32.0 [facility] Comment on above: Performed By: #### B MP, BNP #### [facility] [address] [address] [address] Vega Sorensen Creatinine [Mass/Vol] 1.90 mg/dL Critically high 0.55-1.02 [facility] Comment on above: Performed By: #### B MP, BNP #### [facility] [address] [address] [address] Vega Sorensen EGFR-AF FAROESE 31 mL/min/1.73m2 Critically low >=60 [facility] Comment on above: Performed By: #### B MP, BNP #### [facility] [address] [place] [address] Dr. Vega Sorensen EGFR-NON AF FAROESE 25 mL/min/1.73m2 Critically low >=60 [facility] Comment on above: Performed By: #### B MP, BNP #### [facility] [address] [place] [address] Dr. Vega Sorensen Glucose [Mass/Vol] 121 mg/dL Critically high 74-106 [facility] Comment on above: Performed By: #### B MP, BNP #### [facility] [address] [place] [address] Dr. Vega Sorensen Potassium [Moles/Vol] 4.1 mmol/L Normal 3.5-5.1 [facility] Comment on above: Performed By: #### B MP, BNP #### [facility] [address] [place] [address] Dr. Vega Sorensen Sodium [Moles/Vol] 141 mmol/L Normal 136-145 [facility] Comment on above: Performed By: #### B MP, BNP #### [facility] [address] [place] [address] Dr. Vega Sorensen Urea nitrogen [Mass/Vol] 34.0 mg/dL Critically high 7.0-18.0 [facility] Comment on above: Performed By: #### B MP, BNP #### [facility] [address] [place] [address] Dr. Vega Sorensen Urea nitrogen/Creatinine [Mass ratio] 17.9 mg/mg Normal [facility] Comment on above: Performed By: #### B MP, BNP #### [facility] [address] [place] [address] Dr. Vega Castaneda 03-30-2021 L ---- Specimen: [id number] Received: 03/30/21 Status: JORGE Powersjerman Num: [id number] Spec Type: Surgical Subm Dr: Chad Yeboah MD Tissues: A Soft Tissue/Surgical Margin-Other than Tumor,Mass,Lip or Rosita (ANTERIOR ORBIT Procedures: HE Stain, Gross/Micro L4 Patient Age/Sex Location Account Attending Physician Jenifer Hernandez 80/F GHAZAL [id number] Chad Yeboah MD SPEC NUM: [id number] RECD: 03/30/21 STATUS: JORGE POWERSJerman NUM: [id number] RACHAEL: 03/30/21- SUBM DR: Chad Yeboah MD ENTERED: 03/30/[address]: SPEC TYPE: Surgical DEPT: S ORDERED: [...] Type of Fixative: 10% Neutral Buffered Formalin (SM/YJ) Specimen: [id number] Received: 03/30/21 Status: JORGE Chelly Num: [id number] Spec Type: Surgical Subm Dr: Chad Yeboah MD Tissues: A Soft Tissue/Surgical Margin-Other than Tumor,Mass,Lip or Rosita (ANTERIOR ORBIT Procedures: HE Stain, Gross/Micro L4 Patient: HernandezJenifer [id number] (Continued) Specimen: [id number] Received: 03/30/21 (Continued) Signed (signature on file) Mili Peguero MD 03/31/21 1648 Specimen: Received: 03/30/21 Status: JORGE Spaulding Num: [id number] Spec Type: Surgical Subm Dr: Chad Yeboah MD Tissues: A Soft Tissue/Surgical Margin-Other than Tumor,Mass,Lip or Rosita (ANTERIOR ORBIT Procedures: HE Stain, Gross/Micro L4 Patient: Jenifer Hernandez [id number] (Continued) Specimen: Received: 03/30/21 (Continued) Microscopic Description One glass [...] characteristics were determined by the Laboratory of [facility]. Immunohistochemistry assays have not been validated on decalcified tissue. Results should be interpreted with caution given the possibility of false negative results on decalcified specimens. They have not been cleared by the [place] Food and Drug Administration. The FDA has determined that such clearance or approval is not necessary. CPT Codes 90003, 23572, 01760, 76056 Specimen: [id number] Received: 03/30/21 Status: JORGE Spaulding Num: [id number] Spec Type: Surgical Subm Dr: Chad Yeboah MD Tissues: A Soft Tissue/Surgical Margin-Other than Tumor,Mass,Lip or Rosita (ANTERIOR ORBIT Procedures: HE Stain, Gross/Micro L4 Patient: Jenifer Hernandez [id number] (Continued) (more content not included)... Normal [facility] CBC AUTO DIFFon 03-28-2021 BASO # 0.0 103/ul Normal 0.0-0.1 [facility] Comment on above: Performed By: #### C BC #### [facility] [address] [address] [address] Vega Sorensen Basophils/100 WBC (Bld) 0.5 % Normal 0.2-2.0 [facility] Comment on above: Performed By: #### C BC #### [facility] [address] [place] [address] Dr. Vega Sorensen EO # 0.1 103/ul Normal 0.0-0.7 [facility] Comment on above: Performed By: #### C BC #### [facility] [address] [address] [address] Vega Sorensen Eosinophils/100 WBC (Bld) 1.5 % Normal 0.9-7.0 [facility] Comment on above: Performed By: #### C BC #### [facility] [address] [place] [address] Dr. Vega Sorensen Erythrocyte distribution width (RBC) [Ratio] 13.7 % Normal 11.0-15.0 [facility] Comment on above: Performed By: #### C BC #### [facility] [address] [place] [address] Dr. Vega Sorensen Hematocrit (Bld) [Volume fraction] 38.1 % Normal 36.0-48.0 [facility] Comment on above: Performed By: #### C BC #### [facility] [address] [place] [address] Dr. Vega Sorensen Hemoglobin (Bld) [Mass/Vol] 12.5 g/dL Normal 12.0-16.0 [facility] Comment on above: Performed By: #### C BC #### [facility] [address] [place] [address] Dr. Vega Sorensen IG # 0.03 10e3/ul Normal 0.00-0.03 [facility] Comment on above: Performed By: #### C BC #### [facility] [address] [place] [address] Dr. Vega Sorensen IG % 0.4 % Normal 0.0-0.5 [facility] Comment on above: Performed By: #### C BC #### [facility] [address] [place] [address] Dr. Vega Sorensen LYMPH # 1.4 103/ul Normal 1.2-3.8 [facility] Comment on above: Performed By: #### C BC #### [facility] [address] [place] [address] Dr. Vega Sorensen Lymphocytes/100 WBC (Bld) 18.7 % Critically low 20.5-60.0 [facility] Comment on above: Performed By: #### C BC #### [facility] [address] [place] [address] Dr. Vega Sorensen MANUAL DIFF REQ NO Normal [facility] Comment on above: Performed By: #### C BC #### [facility] [address] [place] [address] Dr. Vega Sorensen MCH (RBC) [Entitic mass] 34.0 pg Normal 26.7-34.0 [facility] Comment on above: Performed By: #### C BC #### [facility] [address] [place] [address] Dr. Vega Sorensen MCHC (RBC) [Mass/Vol] 32.8 g/dL Normal 29.9-35.2 [facility] Comment on above: Performed By: #### C BC #### [facility] [address] [place] [address] Dr. Vega Sorensen MCV (RBC) [Entitic vol] 103.5 fL Critically high 81.0-99.0 [facility] Comment on above: Performed By: #### C BC #### [facility] [address] [place] [address] Dr. Vega Sorensen MONO # 1.0 103/ul Critically high 0.3-0.8 [facility] Comment on above: Performed By: #### C BC #### [facility] [address] [place] [address] Dr. Vega Sorensen Monocytes/100 WBC (Bld) 12.8 % Critically high 1.7-12.0 [facility] Comment on above: Performed By: #### C BC #### [facility] [address] [place] [address] Dr. Vega Sorensen NEUT # 5.0 103/ul Normal 1.4-6.5 [facility] Comment on above: Performed By: #### C BC #### [facility] [address] [place] [address] Dr. Vega Sorensen Neutrophils/100 WBC (Bld) 66.1 % Normal 43.0-75.0 [facility] Comment on above: Performed By: #### C BC #### [facility] [address] [place] [address] Dr. Vega Sorensen Platelet mean volume (Bld) [Entitic vol] 9.2 fL Critically low 9.5-13.5 [facility] Comment on above: Performed By: #### C BC #### [facility] [address] [place] [address] Dr. Vega Sorensen PLT 180 103/ul Normal 150-450 [facility] Comment on above: Performed By: #### C BC #### [facility] [address] [place] [address] Dr. Vega Sorensen RBC 3.68 106/ul Critically low 4.20-5.40 [facility] Comment on above: Performed By: #### C BC #### [facility] [address] [place] [address] Dr. Vega Sorensen WBC 7.5 103/ul Normal 4.0-11.0 [facility] Comment on above: Performed By: #### C BC #### [facility] [address] [place] [address] Dr. Vega Sorensen BNPon 03-07-2021 Natriuretic peptide B (Bld) [Mass/Vol] 2297.0 pg/mL Critically high <=1,800.0 [facility] Comment on above: Performed By: #### B MP, BNP #### [facility] [address] [place] [address] Dr. Vega Sorensen PROF CHEM 8 (BAS METB)on Anion gap [Moles/Vol] 10.0 mmol/L Normal [facility] Comment on above: Performed By: #### B MP, BNP #### [facility] [address] [place] [address] Dr. Vega Sorensen Calcium [Mass/Vol] 9.1 mg/dL Normal 8.4-10.2 [facility] Comment on above: Performed By: #### B MP, BNP #### [facility] [address] [place] [address] Dr. Vega Sorensen Chloride [Moles/Vol] 101 mmol/L Normal 98-107 [facility] Comment on above: Performed By: #### B MP, BNP #### [facility] [address] [place] [address] Dr. Vega Sorensen CO2 [Moles/Vol] 31.8 mmol/L Critically high 22.0-30.0 [facility] Comment on above: Performed By: #### B MP, BNP #### [facility] [address] [place] [address] Dr. Vega Sorensen Creatinine [Mass/Vol] 1.70 mg/dL Critically high 0.52-1.04 [facility] Comment on above: Performed By: #### B MP, BNP #### [facility] [address] [place] [address] Dr. Vega Sorensen EGFR-AF FAROESE 35 mL/min/1.73m2 Critically low >=60 [facility] Comment on above: Performed By: #### B MP, BNP #### [facility] [address] [place] [address] Dr. Vega Sorensen EGFR-NON AF FAROESE 29 mL/min/1.73m2 Critically low >=60 [facility] Comment on above: Performed By: #### B MP, BNP #### [facility] [address] [address] [address] Vega Sorensen Glucose [Mass/Vol] 160 mg/dL Critically high 74-106 [facility] Comment on above: Performed By: #### B MP, BNP #### [facility] [address] [address] [address] Vega Sorensen Potassium [Moles/Vol] 3.8 mmol/L Normal 3.4-5.0 [facility] Comment on above: Performed By: #### B MP, BNP #### [facility] [address] [address] [address] Vega Sorensen Sodium [Moles/Vol] 139 mmol/L Normal 137-145 [facility] Comment on above: Performed By: #### B MP, BNP #### [facility] [address] [place] [address] Dr. Vega Sorensen Urea nitrogen [Mass/Vol] 36.0 mg/dL Critically high 7.0-17.0 [facility] Comment on above: Performed By: #### B MP, BNP #### [facility] [address] [place] [address] Dr. Vega Sorensen Urea nitrogen/Creatinine [Mass ratio] 21.2 mg/mg Normal [facility] Comment on above: Performed By: #### B MP, BNP #### [facility] [address] [place] [address] Dr. Vega Sorensen BASIC METABOLIC PANELon 11-2 Calcium [Mass/Vol] 8.7 mg/dL Normal 8.6-10.3 [facility] Comment on above: Order Comment: No: D o not add to previous draw Performed By: #### 0 0071, 62116, 29072, 00268 #### [facility] [address] [place] [address], [facility] Chloride [Moles/Vol] 95 mmol/L Low 98-107 [facility] Comment on above: Order Comment: No: D o not add to previous draw Performed By: #### 0 0071, 25702, 68773, 60309 #### [facility] [address] [place] [address], [place] CO2 [Moles/Vol] 33 mmol/L High 21-31 [facility] Comment on above: Order Comment: No: D o not add to previous draw Performed By: #### 0 0071, 96734, 33506, 59815 #### [facility] [address] [place] [address], [place] Creatinine [Mass/Vol] 1.21 mg/dL High 0.60-1.20 [facility] Comment on above: Order Comment: No: D o not add to previous draw Performed By: #### 0 0071, 22702, 95601, 78217 #### [facility] [address] [place] [address], [place] GFR/1.73 sq M predicted among blacks MDRD (S/P/Bld) [Vol rate/Area] 52 ml/min/1.73sq m Abnormal >60 [facility] Comment on above: Order Comment: No: D o not add to previous draw Result Comment: Calc ulation may not be valid for patients over 70 years Performed By: #### 0 0071, 42036, 23468, 53217 #### [facility] [address] [place] [address], [place] GFR/1.73 sq M predicted among non-blacks MDRD (S/P/Bld) [Vol rate/Area] 43 ml/min/1.73sq m Abnormal >60 [facility] Comment on above: Order Comment: No: D o not add to previous draw Result Comment: Calc ulation may not be valid for patients over 70 years Performed By: #### 0 0071, 15293, 45798, 19542 #### [facility] [address] [place] [address], [place] Glucose [Mass/Vol] 105 mg/dL High 70-100 [facility] Comment on above: Order Comment: No: D o not add to previous draw Performed By: #### 0 0071, 57249, 37909, 87601 #### [facility] [address] [place] [address], [place] Potassium [Moles/Vol] 3.2 mmol/L Low 3.5-5.1 [facility] Comment on above: Order Comment: No: D o not add to previous draw Performed By: #### 0 0071, 35862, 65893, 83165 #### [facility] [address] [place] [address], [place] Sodium [Moles/Vol] 134 mmol/L Low 136-145 [facility] Comment on above: Order Comment: No: D o not add to previous draw Performed By: #### 0 0071, 47676, 68966, 19814 #### [facility] [address] [place] [address], [place] Urea nitrogen [Mass/Vol] 22 mg/dL Normal 7-25 [facility] Comment on above: Order Comment: No: D o not add to previous draw Performed By: #### 0 0071, 86808, 18197, 77156 #### [facility] [address] [place] [address], [place] Calcium [Mass/Vol] 8.5 mg/dL Low 8.6-10.3 [facility] Comment on above: Order Comment: No: D o not add to previous draw Performed By: #### 0 0071, 29573, 05717, 66651 #### [facility] [address] [place] [address], [place] Chloride [Moles/Vol] 95 mmol/L Low 98-107 [facility] Comment on above: Order Comment: No: D o not add to previous draw Performed By: #### 0 0071, 12177, 94508, 69111 #### [facility] [address] [place] [address], [place] CO2 [Moles/Vol] 34 mmol/L High 21-31 [facility] Comment on above: Order Comment: No: D o not add to previous draw Performed By: #### 0 0071, 68638, 88283, 19586 #### [facility] [address] [place] [address], [place] Creatinine [Mass/Vol] 1.15 mg/dL Normal 0.60-1.20 [facility] Comment on above: Order Comment: No: D o not add to previous draw Performed By: #### 0 0071, 75826, 58154, 83360 #### [facility] [address] [place] [address], [place] GFR/1.73 sq M predicted among blacks MDRD (S/P/Bld) [Vol rate/Area] 55 ml/min/1.73sq m Abnormal >60 [facility] Comment on above: Order Comment: No: D o not add to previous draw Result Comment: Calc ulation may not be valid for patients over 70 years Performed By: #### 0 0071, 50954, 83450, 38769 #### [facility] [address] [place] [address], [place] GFR/1.73 sq M predicted among non-blacks MDRD (S/P/Bld) [Vol rate/Area] 45 ml/min/1.73sq m Abnormal >60 [facility] Comment on above: Order Comment: No: D o not add to previous draw Result Comment: Calc ulation may not be valid for patients over 70 years Performed By: #### 0 0071, 24292, 02475, 41977 #### [facility] [address] [place] [address], [place] Glucose [Mass/Vol] 109 mg/dL High 70-100 [facility] Comment on above: Order Comment: No: D o not add to previous draw Performed By: #### 0 0071, 63354, 01766, 52530 #### [facility] [address] [place] [address], [place] Potassium [Moles/Vol] 2.8 mmol/L Low 3.5-5.1 [facility] Comment on above: Order Comment: No: D o not add to previous draw Performed By: #### 0 0071, 19805, 10924, 41322 #### [facility] [address] [place] [address], [facility] Sodium [Moles/Vol] 136 mmol/L Normal 136-145 [facility] Comment on above: Order Comment: No: D o not add to previous draw Performed By: #### 0 0071, 75136, 78770, 87717 #### [facility] [address] [place] [address], [facility] Urea nitrogen [Mass/Vol] 26 mg/dL High 7-25 [facility] Comment on above: Order Comment: No: D o not add to previous draw Performed By: #### 0 0071, 38591, 08587, 84274 #### [facility] [address] [place] [address], [facility] MAGNESIUM BLOODon 01-14-2019 Magnesium [Mass/Vol] 2.1 mg/dL Normal 1.9-2.7 [facility] Comment on above: Order Comment: No: D o not add to previous draw Performed By: #### 0 0071, 12560, 62685, 09680 #### [facility] [address] [place] [address], [facility] Magnesium [Mass/Vol] 1.6 mg/dL Low 1.9-2.7 [facility] Comment on above: Order Comment: No: D o not add to previous draw Performed By: #### 0 0071, 11646, 60925, 90202 #### [facility] [address] [place] [address], [facility] BASIC METABOLIC PANELon 12-20 Calcium [Mass/Vol] 8.6 mg/dL Normal 8.6-10.3 [facility] Comment on above: Order Comment: No: D o not add to previous draw Performed By: #### 0 0071, 85486, 71141, 99676 #### [facility] [address] [place] [address], [place] Chloride [Moles/Vol] 96 mmol/L Low 98-107 [facility] Comment on above: Order Comment: No: D o not add to previous draw Performed By: #### 0 0071, 83500, 70047, 70691 #### [facility] [address] [place] [address], [place] CO2 [Moles/Vol] 34 mmol/L High 21-31 [facility] Comment on above: Order Comment: No: D o not add to previous draw Performed By: #### 0 0071, 49397, 62995, 97304 #### [facility] [address] [place] [address], [place] Creatinine [Mass/Vol] 0.97 mg/dL Normal 0.60-1.20 [facility] Comment on above: Order Comment: No: D o not add to previous draw Performed By: #### 0 0071, 29547, 60291, 93427 #### [facility] [address] [place] [address], [facility] GFR/1.73 sq M predicted among blacks MDRD (S/P/Bld) [Vol rate/Area] mL/min/{1.73_m2} Normal >60 [facility] Health Comment on above: Order Comment: No: D o not add to previous draw Result Comment: Calc ulation may not be valid for patients over 70 years Performed By: #### 0 0071, 68393, 47983, 23833 #### [facility] [address] [place] [address], [place] GFR/1.73 sq M predicted among non-blacks MDRD (S/P/Bld) [Vol rate/Area] 55 ml/min/1.73sq m Abnormal >60 [facility] Comment on above: Order Comment: No: D o not add to previous draw Result Comment: Calc ulation may not be valid for patients over 70 years Performed By: #### 0 0071, 69612, 95477, 06007 #### [facility] [address] [place] [address], [place] Glucose [Mass/Vol] 93 mg/dL Normal 70-100 [facility] Comment on above: Order Comment: No: D o not add to previous draw Performed By: #### 0 0071, 92809, 25380, 57400 #### [facility] [address] [place] [address], [place] Potassium [Moles/Vol] 3.4 mmol/L Low 3.5-5.1 [facility] Comment on above: Order Comment: No: D o not add to previous draw Performed By: #### 0 0071, 07411, 06128, 98453 #### [facility] [address] [place] [address], [place] Sodium [Moles/Vol] 138 mmol/L Normal 136-145 [facility] Comment on above: Order Comment: No: D o not add to previous draw Performed By: #### 0 0071, 20226, 06179, 54410 #### [facility] [address] [place] [address], [facility] Urea nitrogen [Mass/Vol] 23 mg/dL Normal 7-25 [facility] Comment on above: Order Comment: No: D o not add to previous draw Performed By: #### 0 0071, 12803, 22765, 72347 #### [facility] [address] [place] [address], [place] CBC COMPLETE BLOOD COUNTon 03-13-2018 Erythrocyte distribution width (RBC) [Ratio] Unable to calculate Normal 11.5-15.0 [facility] Comment on above: Order Comment: No: D o not add to previous draw Performed By: #### 0 0071, 45791, 32900, 71418 #### [facility] [address] [place] [address], [place] Hematocrit (Bld) [Volume fraction] 29.9 % Low 36.0-45.0 [facility] Comment on above: Order Comment: No: D o not add to previous draw Performed By: #### 0 0071, 53795, 64661, 56844 #### [facility] [address] [place] [address], [facility] Hemoglobin (Bld) [Mass/Vol] 9.5 g/dL Low 12.0-15.0 [facility] Comment on above: Order Comment: No: D o not add to previous draw Performed By: #### 0 0071, 61149, 26832, 22959 #### [facility] [address] [place] [address], [facility] MCH (RBC) [Entitic mass] 30.6 pg Normal 27.0-33.0 [facility] Comment on above: Order Comment: No: D o not add to previous draw Performed By: #### 0 0071, 11146, 43624, 58200 #### [facility] [address] [place] [address], [facility] MCHC (RBC) [Mass/Vol] 31.8 g/dL Low 32.0-35.0 [facility] Comment on above: Order Comment: No: D o not add to previous draw Performed By: #### 0 0071, 03861, 81195, 93493 #### [facility] [address] [place] [address], [facility] MCV (RBC) [Entitic vol] 96.5 fL Normal 82.0-98.0 [facility] Comment on above: Order Comment: No: D o not add to previous draw Performed By: #### 0 0071, 60800, 90130, 15718 #### [facility] [address] [place] [address], [facility] Nucleated RBC/100 WBC (Bld) [Ratio] 0 % Normal 0-0 [facility] Comment on above: Order Comment: No: D o not add to previous draw Performed By: #### 0 0071, 34213, 45384, 78956 #### [facility] [address] [place] [address], [facility] PLAT CNT 209 10*3/uL Normal 150-400 [facility] Comment on above: Order Comment: No: D o not add to previous draw Performed By: #### 0 0071, 61372, 81464, 72841 #### [facility] [address] [place] [address], [facility] RBC (Bld) [#/Vol] 3.10 10*6/uL Low 3.80-5.00 [facility] Comment on above: Order Comment: No: D o not add to previous draw Performed By: #### 0 0071, 43592, 69131, 27997 #### [facility] [address] [place] [address], [facility] WBC (Bld) [#/Vol] 7.86 10*3/uL Normal 4.00-10.60 [facility] Comment on above: Order Comment: No: D o not add to previous draw Performed By: #### 0 0071, 78159, 07712, 34461 #### [facility] [address] [place] [address], [facility] BASIC METABOLIC PANELon 11-2 -2018 Calcium [Mass/Vol] 9.3 mg/dL Normal 8.6-10.3 [facility] Comment on above: Order Comment: No: D o not add to previous draw Performed By: #### 0 0071, 32640, 29756, 58626 #### [facility] [address] [place] [address], [place] Chloride [Moles/Vol] 103 mmol/L Normal 98-107 [facility] Comment on above: Order Comment: No: D o not add to previous draw Performed By: #### 0 0071, 41840, 07762, 54217 #### [facility] [address] [place] [address], [place] CO2 [Moles/Vol] 32 mmol/L High 21-31 [facility] Comment on above: Order Comment: No: D o not add to previous draw Performed By: #### 0 0071, 30636, 68710, 12032 #### [facility] [address] [place] [address], [place] Creatinine [Mass/Vol] 1.14 mg/dL Normal 0.60-1.20 [facility] Comment on above: Order Comment: No: D o not add to previous draw Performed By: #### 0 0071, 60948, 63626, 36462 #### [facility] [address] [place] [address], [facility] GFR/1.73 sq M predicted among blacks MDRD (S/P/Bld) [Vol rate/Area] 56 ml/min/1.73sq m Abnormal >60 [facility] Comment on above: Order Comment: No: D o not add to previous draw Result Comment: Calc ulation may not be valid for patients over 70 years Performed By: #### 0 0071, 32067, 54724, 68196 #### [facility] [address] [place] [address], [facility] GFR/1.73 sq M predicted among non-blacks MDRD (S/P/Bld) [Vol rate/Area] 46 ml/min/1.73sq m Abnormal >60 [facility] Comment on above: Order Comment: No: D o not add to previous draw Result Comment: Calc ulation may not be valid for patients over 70 years Performed By: #### 0 0071, 17036, 36124, 34955 #### [facility] [address] [place] [address], [place] Glucose [Mass/Vol] 93 mg/dL Normal 70-100 [facility] Comment on above: Order Comment: No: D o not add to previous draw Performed By: #### 0 0071, 56388, 90670, 91941 #### [facility] [address] [place] [address], [facility] Potassium [Moles/Vol] 3.5 mmol/L Normal 3.5-5.1 [facility] Comment on above: Order Comment: No: D o not add to previous draw Performed By: #### 0 0071, 28582, 33357, 18480 #### [facility] [address] [place] [address], [facility] Sodium [Moles/Vol] 142 mmol/L Normal 136-145 [facility] Comment on above: Order Comment: No: D o not add to previous draw Performed By: #### 0 0071, 85641, 86245, 52363 #### [facility] [address] [place] [address], [facility] Urea nitrogen [Mass/Vol] 27 mg/dL High 7-25 [facility] Comment on above: Order Comment: No: D o not add to previous draw Performed By: #### 0 0071, 02601, 04362, 73136 #### [facility] [address] [place] [address], [facility] CBC COMPLETE BLOOD COUNTon 03-11-2018 Erythrocyte distribution width (RBC) [Ratio] Unable to calculate Normal 11.5-15.0 [facility] Comment on above: Order Comment: No: D o not add to previous draw Performed By: #### 0 0071, 24113, 12679, 85358 #### [facility] [address] [place] [address], [facility] Hematocrit (Bld) [Volume fraction] 27.8 % Low 36.0-45.0 [facility] Comment on above: Order Comment: No: D o not add to previous draw Performed By: #### 0 0071, 72805, 75289, 76774 #### [facility] [address] [place] [address], [facility] Hemoglobin (Bld) [Mass/Vol] 8.4 g/dL Low 12.0-15.0 [facility] Comment on above: Order Comment: No: D o not add to previous draw Performed By: #### 0 0071, 54969, 17346, 33639 #### [facility] [address] [facility] [address], [facility] MCH (RBC) [Entitic mass] 29.8 pg Normal 27.0-33.0 [facility] Comment on above: Order Comment: No: D o not add to previous draw Performed By: #### 0 0071, 29069, 13445, 66928 #### [facility] [address] [place] [address], [facility] MCHC (RBC) [Mass/Vol] 30.2 g/dL Low 32.0-35.0 [facility] Comment on above: Order Comment: No: D o not add to previous draw Performed By: #### 0 0071, 30280, 50114, 59454 #### [facility] [address] [facility] [place] [address], [facility] MCV (RBC) [Entitic vol] 98.6 fL High 82.0-98.0 [facility] Comment on above: Order Comment: No: D o not add to previous draw Performed By: #### 0 0071, 94810, 55021, 90644 #### [facility] [address] Nucleated RBC/100 WBC (Bld) [Ratio] 0 % Normal 0-0 [facility] Comment on above: Order Comment: No: D o not add to previous draw Performed By: #### 0 0071, 70538, 29411, 61927 #### [facility] [address] [place] [address], [facility] PLAT CNT 205 10*3/uL Normal 150-400 [facility] Comment on above: Order Comment: No: D o not add to previous draw Performed By: #### 0 0071, 80157, 30078, 79688 #### [facility] [address] [place] [address], [facility] RBC (Bld) [#/Vol] 2.82 10*6/uL Low 3.80-5.00 [facility] Comment on above: Order Comment: No: D o not add to previous draw Performed By: #### 0 0071, 95187, 01940, 77626 #### [facility] [address] [place] [address], [place] WBC (Bld) [#/Vol] 7.35 10*3/uL Normal 4.00-10.60 [facility] Comment on above: Order Comment: No: D o not add to previous draw Performed By: #### 0 0071, 99066, 63781, 76950 #### [facility] [address] [place] [address], [facility] BASIC METABOLIC PANELon 11-2 Calcium [Mass/Vol] 9.0 mg/dL Normal 8.6-10.3 [facility] Comment on above: Order Comment: No: D o not add to previous draw Performed By: #### 0 0071, 67035, 42518, 04566 #### [facility] [address] [place] [address], [place] Chloride [Moles/Vol] 106 mmol/L Normal 98-107 [facility] Comment on above: Order Comment: No: D o not add to previous draw Performed By: #### 0 0071, 07056, 25703, 72173 #### [facility] [address] [place] [address], [place] CO2 [Moles/Vol] 29 mmol/L Normal 21-31 [facility] Comment on above: Order Comment: No: D o not add to previous draw Performed By: #### 0 0071, 24006, 31562, 45162 #### [facility] [address] [place] [address], [place] Creatinine [Mass/Vol] 1.33 mg/dL High 0.60-1.20 [facility] Comment on above: Order Comment: No: D o not add to previous draw Performed By: #### 0 0071, 08338, 97450, 27655 #### [facility] [address] [place] [address], [place] GFR/1.73 sq M predicted among blacks MDRD (S/P/Bld) [Vol rate/Area] 47 ml/min/1.73sq m Abnormal >60 [facility] Comment on above: Order Comment: No: D o not add to previous draw Result Comment: Calc ulation may not be valid for patients over 70 years Performed By: #### 0 0071, 52939, 41715, 05691 #### [facility] [address] [place] [address], [facility] GFR/1.73 sq M predicted among non-blacks MDRD (S/P/Bld) [Vol rate/Area] 39 ml/min/1.73sq m Abnormal >60 [facility] Comment on above: Order Comment: No: D o not add to previous draw Result Comment: Calc ulation may not be valid for patients over 70 years Performed By: #### 0 0071, 08851, 20427, 49562 #### [facility] [address] [place] [address], [place] Glucose [Mass/Vol] 92 mg/dL Normal 70-100 [facility] Comment on above: Order Comment: No: D o not add to previous draw Performed By: #### 0 0071, 61777, 26099, 65811 #### [facility] [address] [place] [address], [place] Potassium [Moles/Vol] 3.9 mmol/L Normal 3.5-5.1 [facility] Comment on above: Order Comment: No: D o not add to previous draw Performed By: #### 0 0071, 24833, 62332, 36429 #### [facility] [address] [place] [address], [place] Sodium [Moles/Vol] 141 mmol/L Normal 136-145 [facility] Comment on above: Order Comment: No: D o not add to previous draw Performed By: #### 0 0071, 49104, 12703, 91410 #### [facility] [address] [place] [address], [facility] Urea nitrogen [Mass/Vol] 34 mg/dL High 7-25 [facility] Comment on above: Order Comment: No: D o not add to previous draw Performed By: #### 0 0071, 52697, 48873, 06329 #### [facility] [address] [place] [address], [facility] CBC COMPLETE BLOOD COUNTon 03-10-2018 Erythrocyte distribution width (RBC) [Ratio] ---- Normal 11.5-15.0 [facility] Comment on above: Order Comment: No: D o not add to previous draw Performed By: #### 0 0071, 22471, 11494, 48090 #### [facility] [address] [place] [address], [facility] Hematocrit (Bld) [Volume fraction] 27.6 % Low 36.0-45.0 [facility] Comment on above: Order Comment: No: D o not add to previous draw Performed By: #### 0 0071, 43887, 83709, 48225 #### [facility] [address] [place] [address], [facility] Hemoglobin (Bld) [Mass/Vol] 8.2 g/dL Low 12.0-15.0 [facility] Comment on above: Order Comment: No: D o not add to previous draw Performed By: #### 0 0071, 12548, 27275, 57911 #### [facility] [address] [place] [address], [place] MCH (RBC) [Entitic mass] 29.6 pg Normal 27.0-33.0 [facility] Comment on above: Order Comment: No: D o not add to previous draw Performed By: #### 0 0071, 39540, 48192, 36774 #### [facility] [address] [place] [address], [facility] MCHC (RBC) [Mass/Vol] 29.7 g/dL Low 32.0-35.0 [facility] Comment on above: Order Comment: No: D o not add to previous draw Performed By: #### 0 0071, 71085, 65977, 09746 #### [facility] [address] [place] [id number], [facility] MCV (RBC) [Entitic vol] 99.6 fL High 82.0-98.0 [facility] Comment on above: Order Comment: No: D o not add to previous draw Performed By: #### 0 0071, 77583, 81002, 43989 #### [facility] [address] [facility] [place] [address], [facility] Nucleated RBC/100 WBC (Bld) [Ratio] 0 % Normal 0-0 [facility] Comment on above: Order Comment: No: D o not add to previous draw Performed By: #### 0 0071, 45655, 92136, 69143 #### [facility] [address] [place] [address], [facility] PLAT CNT 213 10*3/uL Normal 150-400 [facility] Comment on above: Order Comment: No: D o not add to previous draw Performed By: #### 0 0071, 49660, 33236, 85150 #### [facility] [address] [facility] [place] [id number], [facility] RBC (Bld) [#/Vol] 2.77 10*6/uL Low 3.80-5.00 [facility] Comment on above: Order Comment: No: D o not add to previous draw Performed By: #### 0 0071, 86100, 02500, 27349 #### [facility] [address] [place] [address], [facility] WBC (Bld) [#/Vol] 7.75 10*3/uL Normal 4.00-10.60 [facility] Comment on above: Order Comment: No: D o not add to previous draw Performed By: #### 0 0071, 00129, 78250, 38912 #### [facility] [address] CBC COMPLETE BLOOD COUNTon 03-09-2018 Erythrocyte distribution width (RBC) [Ratio] 27.1 % High 11.5-15.0 [facility] Comment on above: Order Comment: No: D o not add to previous draw Performed By: #### 0 0071, 49453, 72680, 84798 #### [facility] [address] [place] [address], [facility] Hematocrit (Bld) [Volume fraction] 29.0 % Low 36.0-45.0 [facility] Comment on above: Order Comment: No: D o not add to previous draw Performed By: #### 0 0071, 67353, 98603, 22482 #### [facility] [address] [place] [address], [facility] Hemoglobin (Bld) [Mass/Vol] 8.9 g/dL Low 12.0-15.0 [facility] Comment on above: Order Comment: No: D o not add to previous draw Performed By: #### 0 0071, 00713, 34083, 95177 #### [facility] [address] [place] [address], [facility] MCH (RBC) [Entitic mass] 30.5 pg Normal 27.0-33.0 [facility] Comment on above: Order Comment: No: D o not add to previous draw Performed By: #### 0 0071, 89346, 46622, 26792 #### [facility] [address] [place] [address], [facility] MCHC (RBC) [Mass/Vol] 30.7 g/dL Low 32.0-35.0 [facility] Comment on above: Order Comment: No: D o not add to previous draw Performed By: #### 0 0071, 21576, 50975, 44559 #### [facility] [address] [place] [address], [facility] MCV (RBC) [Entitic vol] 99.3 fL High 82.0-98.0 [facility] Comment on above: Order Comment: No: D o not add to previous draw Performed By: #### 0 0071, 70160, 65346, 35751 #### [facility] [address] [place] [address], [facility] Nucleated RBC/100 WBC (Bld) [Ratio] 0 % Normal 0-0 [facility] Comment on above: Order Comment: No: D o not add to previous draw Performed By: #### 0 0071, 57340, 50689, 14580 #### [facility] [address] [facility] [place] [address], [facility] PLAT CNT 232 10*3/uL Normal 150-400 [facility] Comment on above: Order Comment: No: D o not add to previous draw Performed By: #### 0 0071, 12455, 38070, 19835 #### [facility] [address] [facility] [place] [address], [facility] RBC (Bld) [#/Vol] 2.92 10*6/uL Low 3.80-5.00 [facility] Comment on above: Order Comment: No: D o not add to previous draw Performed By: #### 0 0071, 53163, 08813, 07239 #### [facility] [address] [place] [address], [place] WBC (Bld) [#/Vol] 9.20 10*3/uL Normal 4.00-10.60 [facility] Comment on above: Order Comment: No: D o not add to previous draw Performed By: #### 0 0071, 97539, 55623, 61482 #### [facility] [address] [place] [address], [facility] COMP METABOLIC PANELon 01-07 Albumin [Mass/Vol] 3.7 g/dL Normal 3.5-5.7 [facility] Comment on above: Performed By: #### 0 0071, 08948, 27536, 95149 #### [facility] [address] [place] [address], [place] ALKALINE PHOSPH 107 IU/L High 34-104 [facility] Comment on above: Performed By: #### 0 0071, 93486, 71972, 09287 #### [facility] [address] [place] [address], [place] ALT [Catalytic activity/Vol] 16 U/L Normal 7-52 [facility] Comment on above: Performed By: #### 0 0071, 37178, 05323, 44286 #### [facility] [address] [place] [address], [place] AST [Catalytic activity/Vol] 22 U/L Normal 13-39 [facility] Comment on above: Performed By: #### 0 0071, 23034, 81293, 01249 #### [facility] [address] [place] [address], [place] Bilirubin [Mass/Vol] 1.1 mg/dL High 0.3-1.0 [facility] Comment on above: Performed By: #### 0 0071, 82765, 13767, 06516 #### [facility] [address] [place] [address], [place] Calcium [Mass/Vol] 8.8 mg/dL Normal 8.6-10.3 [facility] Comment on above: Performed By: #### 0 0071, 33208, 12108, 45495 #### [facility] [address] [place] [address], [place] Chloride [Moles/Vol] 107 mmol/L Normal 98-107 [facility] Comment on above: Performed By: #### 0 0071, 84391, 81092, 11852 #### [facility] [address] [place] [address], [place] CO2 [Moles/Vol] 28 mmol/L Normal 21-31 [facility] Comment on above: Performed By: #### 0 0071, 84491, 41733, 26715 #### [facility] [address] [place] [address], [place] Creatinine [Mass/Vol] 1.73 mg/dL High 0.60-1.20 [facility] Comment on above: Performed By: #### 0 0071, 43877, 09427, 04494 #### [facility] [address] [place] [address], [place] GFR/1.73 sq M predicted among blacks MDRD (S/P/Bld) [Vol rate/Area] 34 ml/min/1.73sq m Abnormal >60 [facility] Comment on above: Result Comment: Calc ulation may not be valid for patients over 70 years Performed By: #### 0 [id number], [id number], [id number], [id number] #### [facility] [address] [place] [address], [place] GFR/1.73 sq M predicted among non-blacks MDRD (S/P/Bld) [Vol rate/Area] 28 ml/min/1.73sq m Abnormal >60 [facility] Comment on above: Result Comment: Calc ulation may not be valid for patients over 70 years Performed By: #### 0 [id number], [id number], [id number], [id number] #### [facility] [address] [place] [address], [place] Glucose [Mass/Vol] 98 mg/dL Normal 70-100 [facility] Comment on above: Performed By: #### 0 [id number], [id number], [id number], [id number] #### [facility] [address] [place] [address], [place] Potassium [Moles/Vol] 4.6 mmol/L Normal 3.5-5.1 [facility] Comment on above: Performed By: #### 0 [id number], [id number], [id number], [id number] #### [facility] [address] [place] [address], [facility] Protein [Mass/Vol] 6.6 g/dL Normal 6.0-8.3 [facility] Comment on above: Performed By: #### 0 0071, 19740, 94569, 96064 #### [facility] [address] [place] [address], [facility] Sodium [Moles/Vol] 141 mmol/L Normal 136-145 [facility] Comment on above: Performed By: #### 0 0071, 97036, 52924, 63219 #### [facility] [address] Urea nitrogen [Mass/Vol] 42 mg/dL High 7-25 [facility] Comment on above: Performed By: #### 0 0071, 69029, 77809, 64665 #### [facility] [address] Cardiovascular Lab Reporton 01-07-2019 Cardiovascular Lab Report [facility] Patient Name: [facility] [place] MR #: [id number] Physician: Kevon Trejo Abd Department of MD [facility] Service Date: 01/07/2019 Division of Birthdate: 1940 Cardiology Room #: [id number] Adult Cardiovascular Services [place] [address] Cardiovascular Laboratory Report PREPARATION PLANT REPAIRER: Dr. Dedrick Washington, dot net architect. INDICATION: This is an 78-year-old female with [...] The patient was also notified that a dot net architect will be assisting during the course of [...] to the right internal jugular vein. Then, [place] sheath was inserted 6-Gambian x 11 cm. Then, under fluoroscopy guidance, [...] by: Kevon Serrano MD 01/08/2019 10:24 A Keovn Serrano MD Date Dict: 01/07/2019/03:32 P/Kevon Serrano MD Date Trans: 01/07/2019 03:58 P/mmo [id number] cc: Edu Odonnell D.O. [address] [place] [address] Normal [facility] MAGNESIUM BLOODon 01-07-2019 Magnesium [Mass/Vol] 1.9 mg/dL Normal 1.9-2.7 [facility] Comment on above: Order Comment: No: D o not add to previous draw Performed By: #### 0 0071, 29679, 58449, 49563 #### [facility] [address] PHOSPHORUS BLOODon 9 Phosphate [Mass/Vol] 2.8 mg/dL Normal 2.5-5.0 [facility] Comment on above: Order Comment: No: D o not add to previous draw Performed By: #### 0 0071, 01913, 69528, 29601 #### [facility] [address] APTTon 01-06-2019 aPTT Coag (Bld) [Time] 33.6 s Normal 25.0-35.0 [facility] Comment on above: Order Comment: No: D [...] THIS PURPOSE. Performed By: #### 0 0071, 04769, 13811, 06011 #### [facility] [address] [place] [address], [facility] BASIC METABOLIC PANELon - Calcium [Mass/Vol] 8.8 mg/dL Normal 8.6-10.3 [facility] Comment on above: Order Comment: No: D o not add to previous draw Performed By: #### 0 0071, 82052, 98984, 67388 #### [facility] [address] [place] [address], [facility] Chloride [Moles/Vol] 103 mmol/L Normal 98-107 [facility] Comment on above: Order Comment: No: D o not add to previous draw Performed By: #### 0 0071, 27253, 61628, 08097 #### [facility] [address] [place] [address], [facility] CO2 [Moles/Vol] 24 mmol/L Normal 21-31 [facility] Comment on above: Order Comment: No: D o not add to previous draw Performed By: #### 0 0071, 78923, 01139, 73911 #### [facility] [address] [place] [address], [facility] Creatinine [Mass/Vol] 3.14 mg/dL High 0.60-1.20 [facility] Comment on above: Order Comment: No: D o not add to previous draw Performed By: #### 0 0071, 95462, 21864, 90368 #### [facility] [address] [place] [address], [place] GFR/1.73 sq M predicted among blacks MDRD (S/P/Bld) [Vol rate/Area] 17 ml/min/1.73sq m Abnormal >60 [facility] Comment on above: Order Comment: No: D o not add to previous draw Result Comment: Calc ulation may not be valid for patients over 70 years Performed By: #### 0 0071, 09814, 98481, 22002 #### [facility] [address] [place] [address], [place] GFR/1.73 sq M predicted among non-blacks MDRD (S/P/Bld) [Vol rate/Area] 14 ml/min/1.73sq m Abnormal >60 [facility] Comment on above: Order Comment: No: D o not add to previous draw Result Comment: Calc ulation may not be valid for patients over 70 years Performed By: #### 0 0071, 76901, 77401, 64185 #### [facility] [address] [place] [address], [place] Glucose [Mass/Vol] 123 mg/dL High 70-100 [facility] Comment on above: Order Comment: No: D o not add to previous draw Performed By: #### 0 0071, 28296, 02315, 39424 #### [facility] [address] [place] [address], [place] Potassium [Moles/Vol] 4.5 mmol/L Normal 3.5-5.1 [facility] Comment on above: Order Comment: No: D o not add to previous draw Performed By: #### 0 0071, 82870, 70936, 21326 #### [facility] [address] [place] [address], [place] Sodium [Moles/Vol] 135 mmol/L Low 136-145 [facility] Comment on above: Order Comment: No: D o not add to previous draw Performed By: #### 0 0071, 91964, 14825, 38444 #### [facility] [address] [place] [address], [place] Urea nitrogen [Mass/Vol] 60 mg/dL High 7-25 [facility] Comment on above: Order Comment: No: D o not add to previous draw Performed By: #### 0 0071, 25587, 45753, 91928 #### [facility] [address] [place] [address], [place] CBC W/DIFFon 11-19-2019 ABS BASOPHILS 0.0 10*3/uL Normal 0.0-0.2 [facility] Comment on above: Order Comment: No: D o not add to previous draw Performed By: #### 0 0071, 26618, 97813, 07895 #### [facility] [address] [place] [address], [facility] ABS IMM GRANS 0.1 10*3/uL Normal 0.0-0.2 [facility] Comment on above: Order Comment: No: D o not add to previous draw Performed By: #### 0 0071, 10737, 91018, 95469 #### [facility] [address] [place] [address], [facility] ABS NEUTROPHILS 6.9 10*3/uL Normal 1.6-7.6 [facility] Comment on above: Order Comment: No: D o not add to previous draw Performed By: #### 0 0071, 25943, 17761, 34121 #### [facility] [address] [place] [address], [facility] ACANTHOCYTES Slight Normal [facility] Comment on above: Order Comment: No: D o not add to previous draw Performed By: #### 0 0071, 69776, 25027, 20195 #### [facility] [address] [place] [address], [facility] ANISO Marked Normal [facility] Comment on above: Order Comment: No: D o not add to previous draw Performed By: #### 0 0071, 99133, 90241, 35684 #### [facility] [address] [place] [address], [facility] Basophils/100 WBC (Bld) 0.2 % Normal 0.0-1.0 [facility] Comment on above: Order Comment: No: D o not add to previous draw Performed By: #### 0 0071, 51668, 39115, 72756 #### [facility] [address] [place] [address], [facility] ELLIPTOCYTES Slight Normal [facility] Comment on above: Order Comment: No: D o not add to previous draw Performed By: #### 0 0071, 92532, 97722, 49670 #### [facility] [address] [place] [address], [facility] Eosinophils (Bld) [#/Vol] 0.2 10*3/uL Normal 0.0-0.5 [facility] Comment on above: Order Comment: No: D o not add to previous draw Performed By: #### 0 0071, 07577, 31135, 05479 #### [facility] [address] [place] [address], [facility] Eosinophils/100 WBC (Bld) 1.6 % Normal 0.0-6.0 [facility] Comment on above: Order Comment: No: D o not add to previous draw Performed By: #### 0 0071, 86611, 28762, 66894 #### [facility] [address] [place] [address], [facility] Erythrocyte distribution width (RBC) [Ratio] 27.6 % High 11.5-15.0 [facility] Comment on above: Order Comment: No: D o not add to previous draw Performed By: #### 0 0071, 06143, 68036, 95237 #### [facility] [address] [place] [id number], [facility] Hematocrit (Bld) [Volume fraction] 27.2 % Low 36.0-45.0 [facility] Comment on above: Order Comment: No: D o not add to previous draw Performed By: #### 0 0071, 27476, 27867, 39241 #### [facility] [address] [place] [address], [facility] Hemoglobin (Bld) [Mass/Vol] 8.2 g/dL Low 12.0-15.0 [facility] Comment on above: Order Comment: No: D o not add to previous draw Performed By: #### 0 0071, 41781, 88470, 50235 #### [facility] [address] [facility] [place] [address], [facility] IMMATURE GRANS 0.5 % Normal 0.0-1.0 [facility] Comment on above: Order Comment: No: D o not add to previous draw Performed By: #### 0 0071, 50495, 87306, 77415 #### [facility] [address] [place] [address], [facility] Lymphocytes (Bld) [#/Vol] 1.2 10*3/uL Normal 1.2-4.0 [facility] Comment on above: Order Comment: No: D o not add to previous draw Performed By: #### 0 0071, 06021, 81442, 76345 #### [facility] [address] [place] [address], [facility] Lymphocytes/100 WBC (Bld) 12.5 % Low 20.0-45.0 [facility] Comment on above: Order Comment: No: D o not add to previous draw Performed By: #### 0 0071, 73926, 56598, 25611 #### [facility] [address] [place] [address], [facility] MCH (RBC) [Entitic mass] 29.5 pg Normal 27.0-33.0 [facility] Comment on above: Order Comment: No: D o not add to previous draw Performed By: #### 0 0071, 31715, 70031, 89027 #### [facility] [address] [facility] [place] [address], [facility] MCHC (RBC) [Mass/Vol] 30.1 g/dL Low 32.0-35.0 [facility] Comment on above: Order Comment: No: D o not add to previous draw Performed By: #### 0 0071, 97845, 31918, 55481 #### [facility] [address] [facility] [address] MCV (RBC) [Entitic vol] 97.8 fL Normal 82.0-98.0 [facility] Comment on above: Order Comment: No: D o not add to previous draw Performed By: #### 0 0071, 62111, 30975, 98481 #### [facility] [address] [place] [address], [facility] Monocytes (Bld) [#/Vol] 1.4 10*3/uL High 0.1-1.0 [facility] Comment on above: Order Comment: No: D o not add to previous draw Performed By: #### 0 0071, 81329, 32747, 54192 #### [facility] [address] [place] [address], [facility] MONOS 14.5 % High 5.0-12.0 [facility] Comment on above: Order Comment: No: D o not add to previous draw Performed By: #### 0 0071, 34117, 61812, 74583 #### [facility] [address] [place] [address], [facility] Neutrophils/100 WBC (Bld) 70.7 % Normal 40.0-72.0 [facility] Comment on above: Order Comment: No: D o not add to previous draw Performed By: #### 0 0071, 79033, 26812, 98726 #### [facility] [address] [place] [address], [facility] Nucleated RBC/100 WBC (Bld) [Ratio] 0 % Normal 0-0 [facility] Comment on above: Order Comment: No: D o not add to previous draw Performed By: #### 0 0071, 84063, 89670, 03143 #### [facility] [address] [place] [address], [facility] OVALOCYTES Slight Normal [facility] Comment on above: Order Comment: No: D o not add to previous draw Performed By: #### 0 0071, 41520, 16625, 02505 #### [facility] [address] [place] [address], [facility] PLAT CNT 236 10*3/uL Normal 150-400 [facility] Comment on above: Order Comment: No: D o not add to previous draw Performed By: #### 0 0071, 39097, 86339, 04394 #### [facility] [address] [place] [address], [facility] POIK Moderate Normal [facility] Comment on above: Order Comment: No: D o not add to previous draw Performed By: #### 0 0071, 54781, 60317, 45325 #### [facility] [address] [place] [address], [facility] POLY Slight Normal [facility] Comment on above: Order Comment: No: D o not add to previous draw Performed By: #### 0 0071, 59589, 46685, 90293 #### [facility] [address] [place] [address], [facility] RBC (Bld) [#/Vol] 2.78 10*6/uL Low 3.80-5.00 [facility] Comment on above: Order Comment: No: D o not add to previous draw Performed By: #### 0 0071, 24842, 39813, 46016 #### [facility] [address] [place] [address], [facility] SCHISTOCYTES Slight Normal [facility] Comment on above: Order Comment: No: D o not add to previous draw Performed By: #### 0 0071, 02829, 04333, 25409 #### [facility] [address] [place] [id number], [facility] WBC (Bld) [#/Vol] 9.76 10*3/uL Normal 4.00-10.60 [facility] Comment on above: Order Comment: No: D o not add to previous draw Performed By: #### 0 0071, 73617, 11989, 33796 #### [facility] [address] [place] [address], [facility] CPKon 01-06-2019 CK [Catalytic activity/Vol] 26 U/L Low 30-223 [facility] Comment on above: Performed By: #### 0 0071, 36216, 58716, 00417 #### [facility] [address] [place] [address], [facility] FERRITINon 01-06-2019 Ferritin [Mass/Vol] 288 ng/mL Normal 11-307 [facility] Comment on above: Performed By: #### 0 0071, 57863, 02839, 70911 #### [facility] [address] [place] [address], [facility] MAGNESIUM BLOODon 01-06-2019 Magnesium [Mass/Vol] 2.1 mg/dL Normal 1.9-2.7 [facility] Comment on above: Order Comment: No: D o not add to previous draw Performed By: #### 0 0071, 41955, 81675, 66466 #### [facility] [address] [place] [address], [facility] PHOSPHORUS BLOODon 9 Phosphate [Mass/Vol] 3.9 mg/dL Normal 2.5-5.0 [facility] Comment on above: Order Comment: No: D o not add to previous draw Performed By: #### 0 0071, 82836, 19913, 19031 #### [facility] [address] [place] [address], [facility] PROTHROMBIN TIMEon 9 INR Coag (PPP) [Relative time] 2.22 {INR} High 0.91-1.16 [facility] Comment on above: Order Comment: No: D o not add to previous draw Result Comment: [facility] P RECOMMENDED INR FOR WARFARIN THERAPY ------- [...] CHEST 1995;108:231S-246S. Performed By: #### 0 0071, 90008, 35248, 22094 #### [facility] [address] PT Coag (PPP) [Time] 25.0 s High 12.3-14.8 [facility] Comment on above: Order Comment: No: D o not add to previous draw Result Comment: ALL RESULTS MUST BE INTERPRETED WITH RESPECT TO BLOOD DRAWING ARTIFACT OR DILUTION ERROR OF ANTICOAGULANT AT THE TIME OF SAMPLING. Performed By: #### 0 0071, 58749, 24482, 13727 #### [facility] [address] TIBC- INCLUDES IRONon 2018 FE SATURATION 25 % Normal 20-50 [facility] Comment on above: Performed By: #### 0 0071, 88371, 04447, 68025 #### [facility] [address] [place] [address], [facility] Iron [Mass/Vol] 87 ug/dL Normal 50-212 [facility] Comment on above: Performed By: #### 0 0071, 33649, 74368, 08049 #### [facility] [address] TIBC 345 mcg/dL Normal 250-450 [facility] Comment on above: Performed By: #### 0 0071, 39478, 92268, 44838 #### [facility] [address] [place] [address], [facility] UIBC 258 mcg/dL Normal 155-355 [facility] Comment on above: Performed By: #### 0 0071, 46155, 63776, 85234 #### [facility] [address] [place] [address], [facility] TRANSFERRINon 01-06-2019 Transferrin [Mass/Vol] 282 mg/dL Normal 203-362 [facility] Comment on above: Performed By: #### 0 0071, 49952, 76117, 35784 #### [facility] [address] [place] [address], [facility] ANAon 01-05-2019 Nuclear Ab IF (S) [Titer] <1:40 Normal <1:40,1:40 [facility] Comment on above: Order Comment: No: D o not add to previous draw Performed By: #### 0 0071, 27874, 50307, 69917 #### [facility] [address] BASIC METABOLIC PANELon 12-19 Calcium [Mass/Vol] 8.5 mg/dL Low 8.6-10.3 [facility] Comment on above: Order Comment: No: D o not add to previous draw Performed By: #### 5 0608 #### [facility] [address] [place] [address], [facility] Chloride [Moles/Vol] 103 mmol/L Normal 98-107 [facility] Comment on above: Order Comment: No: D o not add to previous draw Performed By: #### 5 0608 #### [facility] [address] [place] [id number], [facility] CO2 [Moles/Vol] 24 mmol/L Normal 21-31 [facility] Comment on above: Order Comment: No: D o not add to previous draw Performed By: #### 5 0608 #### [facility] [address] [place] [address], [place] Creatinine [Mass/Vol] 2.90 mg/dL High 0.60-1.20 [facility] Comment on above: Order Comment: No: D o not add to previous draw Performed By: #### 5 0608 #### [facility] [address] [place] [address], [place] GFR/1.73 sq M predicted among blacks MDRD (S/P/Bld) [Vol rate/Area] 19 ml/min/1.73sq m Abnormal >60 [facility] Comment on above: Order Comment: No: D o not add to previous draw Result Comment: Calc ulation may not be valid for patients over 70 years Performed By: #### 5 0608 #### [facility] [address] [place] [address], [place] GFR/1.73 sq M predicted among non-blacks MDRD (S/P/Bld) [Vol rate/Area] 16 ml/min/1.73sq m Abnormal >60 [facility] Comment on above: Order Comment: No: D o not add to previous draw Result Comment: Calc ulation may not be valid for patients over 70 years Performed By: #### 5 0608 #### [facility] [address] [place] [address], [place] Glucose [Mass/Vol] 142 mg/dL High 70-100 [facility] Comment on above: Order Comment: No: D o not add to previous draw Performed By: #### 5 0608 #### [facility] [address] [place] [address], [place] Potassium [Moles/Vol] 4.6 mmol/L Normal 3.5-5.1 [facility] Comment on above: Order Comment: No: D o not add to previous draw Performed By: #### 5 0608 #### [facility] [address] Sodium [Moles/Vol] 134 mmol/L Low 136-145 [facility] Comment on above: Order Comment: No: D o not add to previous draw Performed By: #### 5 0608 #### [facility] [address] [place] [address], [facility] Urea nitrogen [Mass/Vol] 53 mg/dL High 7-25 [facility] Comment on above: Order Comment: No: D o not add to previous draw Performed By: #### 5 0608 #### [facility] [address] [facility] [address] BNP (B-TYPE NATRIURETIC PEPT LIVAN)on 01-05-2019 Natriuretic peptide B (Bld) [Mass/Vol] 616 pg/mL High 0-100 [facility] Comment on above: Order Comment: No: D o not add to previous draw Result Comment: Give n the appropriate clinical setting a BNP result of >100 pg/mL indicates congestive heart failure. Performed By: #### 5 0608 #### [facility] [address] [place] [address], [facility] CBC W/DIFFon 01-05-2019 ABS BASOPHILS 0.0 10*3/uL Normal 0.0-0.2 [facility] Comment on above: Performed By: #### 5 0608 #### [facility] [address] [facility] [address] ABS IMM GRANS 0.1 10*3/uL Normal 0.0-0.2 [facility] Comment on above: Performed By: #### 5 0608 #### [facility] [address] [place] [address], [facility] ABS NEUTROPHILS 7.6 10*3/uL Normal 1.6-7.6 [facility] Comment on above: Performed By: #### 5 0608 #### [facility] [address] [place] [address], [facility] ACANTHOCYTES Slight Normal [facility] Comment on above: Performed By: #### 5 0608 #### [facility] [address] [place] [address], [facility] ANISO Marked Normal [facility] Comment on above: Performed By: #### 5 0608 #### [facility] [address] [place] [address], [facility] Basophils/100 WBC (Bld) 0.2 % Normal 0.0-1.0 [facility] Comment on above: Performed By: #### 5 0608 #### [facility] [address] [place] [address], [facility] THERESA CELLS Slight Normal [facility] Comment on above: Performed By: #### 5 0608 #### [facility] [address] [place] [address], [facility] ELLIPTOCYTES Slight Normal [facility] Comment on above: Performed By: #### 5 0608 #### [facility] [address] [place] [address], [facility] Eosinophils (Bld) [#/Vol] 0.0 10*3/uL Normal 0.0-0.5 [facility] Comment on above: Performed By: #### [id number] #### [facility] [address] [place] [address], [facility] Eosinophils/100 WBC (Bld) 0.2 % Normal 0.0-6.0 [facility] Comment on above: Performed By: #### [id number] #### [facility] [address] [place] [id number], [facility] Erythrocyte distribution width (RBC) [Ratio] 27.2 % High 11.5-15.0 [facility] Comment on above: Result Comment: Resu lt changed by [email or web address] on 01/05/2019 02:09. The previous value was ----. Performed By: #### [id number] #### [facility] [facility] [address] Hematocrit (Bld) [Volume fraction] 27.5 % Low 36.0-45.0 [facility] Comment on above: Result Comment: Resu lt changed by [email or web address] on 01/05/2019 02:09. The previous value was 27.7. Performed By: #### 5 0608 #### [facility] [address] Hemoglobin (Bld) [Mass/Vol] 8.2 g/dL Low 12.0-15.0 [facility] Comment on above: Performed By: #### 5 0608 #### [facility] [address] IMMATURE GRANS 0.6 % Normal 0.0-1.0 [facility] Comment on above: Performed By: #### 5 0608 #### [facility] [address] Lymphocytes (Bld) [#/Vol] 0.9 10*3/uL Low 1.2-4.0 [facility] Comment on above: Performed By: #### 5 0608 #### [facility] [address] Lymphocytes/100 WBC (Bld) 9.0 % Low 20.0-45.0 [facility] Comment on above: Performed By: #### 5 0608 #### [facility] [address] MCH (RBC) [Entitic mass] 29.3 pg Normal 27.0-33.0 [facility] Comment on above: Result Comment: Resu lt changed by [email or web address] on 01/05/2019 02:09. The previous value was 29.1. Performed By: #### 5 0608 #### [facility] [address] MCHC (RBC) [Mass/Vol] 29.8 g/dL Low 32.0-35.0 [facility] Comment on above: Result Comment: Resu lt changed by [email or web address] on 01/05/2019 02:09. The previous value was 29.6. Performed By: #### 5 0608 #### [facility] [address] [facility] [place] [address], [facility] MCV (RBC) [Entitic vol] 98.2 fL High 82.0-98.0 [facility] Comment on above: Performed By: #### 5 0608 #### [facility] [address] [place] [address], [facility] Monocytes (Bld) [#/Vol] 1.1 10*3/uL High 0.1-1.0 [facility] Comment on above: Performed By: #### 5 0608 #### [facility] [address] MONOS 11.8 % Normal 5.0-12.0 [facility] Comment on above: Performed By: #### 5 0608 #### [facility] [address] [place] [address], [facility] Neutrophils/100 WBC (Bld) 78.2 % High 40.0-72.0 [facility] Comment on above: Performed By: #### 5 0608 #### [facility] [address] [place] [address], [facility] Nucleated RBC/100 WBC (Bld) [Ratio] 0 % Normal 0-0 [facility] Comment on above: Performed By: #### 5 0608 #### [facility] [address] OTHER 1 Checked by Los navarro M.D. Normal [facility] Comment on above: Result Comment: Resu lt changed by TOANCE on 01/05/2019 09:19. The previous value was Preliminary report; verified report to follow. Performed By: #### 5 0608 #### [facility] [address] [place] [address], [facility] OVALOCYTES Slight Normal [facility] Comment on above: Performed By: #### 5 0608 #### [facility] [address] [place] [address], [facility] PLAT CNT 263 10*3/uL Normal 150-400 [facility] Comment on above: Performed By: #### 5 0608 #### [facility] [address] [facility] [place] [address], [facility] POIK Moderate Normal [facility] Comment on above: Performed By: #### 5 0608 #### [facility] [address] [place] [address], [facility] RBC (Bld) [#/Vol] 2.80 10*6/uL Low 3.80-5.00 [facility] Comment on above: Result Comment: Resu lt changed by [email or web address] on 01/05/2019 02:09. The previous value was 2.82. Performed By: #### 5 0608 #### [facility] [address] [place] [address], [facility] SCHISTOCYTES Slight Normal [facility] Comment on above: Performed By: #### 5 0608 #### [facility] [address] [place] [address], [facility] WBC (Bld) [#/Vol] 9.70 10*3/uL Normal 4.00-10.60 [facility] Comment on above: Result Comment: Resu lt changed by [email or web address] on 01/05/2019 02:09. The previous value was 9.82. Performed By: #### 5 0608 #### [facility] [address] [place] [address], [facility] COMPLEMENT 3on 01-05-2019 COMPLEMENT 3 89 mg/dL Normal 79-152 [facility] Comment on above: Order Comment: No: D o not add to previous draw Performed By: #### 0 0071, 25830, 02845, 05369 #### [facility] [address] [place] [address], [facility] COMPLEMENT 4on 01-05-2019 COMPLEMENT 4 16 mg/dL Normal 16-38 [facility] Comment on above: Order Comment: No: D o not add to previous draw Performed By: #### 0 0071, 02198, 16234, 30212 #### [facility] [address] [place], [place] [id number] [place] [address] CT CHEST WO CONTRASTon 01-05 CT CHEST WO CONTRAST [facility] Department of Radiology [address] [place] [id number] == Patient Name: JENIFER HERNANDEZ : 1940 Sex: F Age: Race: NA Pt. Location: [id number] Patient Status: I Ordered Date: 01/05/2019 8:15:00 [...] anasarca. Electronically signed by:Christina Jules. Transcribed by: [email or web address], User Resident: Electronically Signed by: CHRISTINA JULES @ 01/06/2019 11:13 AM Normal [facility] Comment on above: Order Comment: No: D o not add to previous draw IMMUNOFIXATION BLOODon 01-05 IgA [Mass/Vol] 233 mg/dL Normal 60-413 [facility] Comment on above: Order Comment: No: D o not add to previous draw Performed By: #### 0 0071, 33887, 32057, 02344 #### [facility] [address] [place] [address], [facility] IgG [Mass/Vol] 1240 mg/dL Normal 591-1540 [facility] Comment on above: Order Comment: No: D o not add to previous draw Performed By: #### 0 0071, 06208, 58231, 61869 #### [facility] [address] [place] [address], [facility] IgM [Mass/Vol] 52 mg/dL Low 54-285 [facility] Comment on above: Order Comment: No: D o not add to previous draw Performed By: #### 0 0071, 03065, 15499, 88685 #### [facility] [address] IMMUNOFIXATION Serum Immunofixation reveals: A NORMAL PATTERN. SEE SEPARATE REPORT Normal [facility] Comment on above: Order Comment: No: D o not add to previous draw Performed By: #### 0 0071, 00235, 04006, 37216 #### [facility] [address] [place] [address], [facility] KAPPA LIGHT CHN 7.65 mg/dL High 0.33-1.94 [facility] Comment on above: Order Comment: No: D o not add to previous draw Result Comment: BONNIE Tapia epeated for verification. Performed By: #### 0 0071, 80203, 38721, 56805 #### [facility] [address] [place] [address], [facility] KAPPA/LAMDBA RATIO 2.37 RATIO High 0.26-1.65 [facility] Comment on above: Order Comment: No: D o not add to previous draw Result Comment: For patients with renal impairment, use a kappa/lambda ratio of 0.37-3.10 Performed By: #### 0 0071, 11390, 09174, 04905 #### [facility] [address] [place] [address], [place] LAMBDA LIGHT CHN 3.23 mg/dL High 0.57-2.63 [facility] Comment on above: Order Comment: No: D o not add to previous draw Result Comment: LF R epeated for verification. Performed By: #### 0 0071, 63891, 73734, 88027 #### [facility] [address] [place] [address], [place] OSMOLALITY URINEon 9 Osmolality [Osmolality] 325 mOsm/kg Normal 50-1400 [facility] Comment on above: Order Comment: No: D o not add to previous draw Performed By: #### 0 0071, 29467, 14101, 99795 #### [facility] [address] [place] [address], [place] PROTEIN ELECT Joseph 01-05-2019 Protein [Mass/Vol] 5.9 g/dL Low 6.0-8.3 [facility] Comment on above: Order Comment: No: D o not add to previous draw Performed By: #### 0 0071, 22534, 19041, 19935 #### [facility] [address] [place] [address], [place] Protein [Mass/Vol] Normal [facility] Comment on above: Order Comment: No: D o not add to previous draw Result Comment: Hypo albuminemia and greatly elevated alpha 2 fraction suggests nephrosis. Performed By: #### 0 0071, 73431, 29592, 29082 #### [facility] [address] [place] [address], [place] PROTEIN ELECT URon 9 Protein [Mass/Vol] No abnormal bands seen. Normal [facility] Comment on above: Order Comment: No: D o not add to previous draw Performed By: #### 0 0071, 88278, 42696, 60332 #### [facility] [address] [place] [address], [place] Protein [Mass/Vol] 379.0 mg/dL Normal [facility] Comment on above: Order Comment: No: D o not add to previous draw Result Comment: Ther e are no established reference values for random urine specimens Performed By: #### 0 0071, 71331, 43923, 42256 #### [facility] [address] [place] [address], [facility] SODIUM URINE RANDOMon 2018 Sodium (U) [Moles/Vol] 14 mmol/L Normal [facility] Comment on above: Order Comment: No: D o not add to previous draw Result Comment: Ther e are no established reference values for random urine specimens Performed By: #### 0 0071, 57948, 68803, 10815 #### [facility] [address] [place] [address], [facility] URINALYSIS REFLEXon 01-06-20 19 Appearance (U) CLOUDY Abnormal CLEAR [facility] Comment on above: Order Comment: No: D o not add to previous draw Performed By: #### 0 0071, 06331, 25890, 27714 #### [facility] [address] [place] [address], [facility] Bilirubin [Mass/Vol] Negative Normal NEGATIVE [facility] Comment on above: Order Comment: No: D o not add to previous draw Performed By: #### 0 0071, 35711, 20405, 45184 #### [facility] [address] [place] [address], [facility] BLOOD Negative Normal NEGATIVE [facility] Comment on above: Order Comment: No: D o not add to previous draw Performed By: #### 0 0071, 55583, 56589, 83072 #### [facility] [address] [place] [address], [facility] CALCIUM OXALATE CRYSTAL OCC Abnormal NONE SEEN [facility] Comment on above: Order Comment: No: D o not add to previous draw Performed By: #### 0 0071, 83092, 72164, 96258 #### [facility] [address] [place] [address], [place] Color (U) FARHEEN Abnormal YELLOW [facility] Comment on above: Order Comment: No: D o not add to previous draw Performed By: #### 0 0071, 65765, 91405, 88028 #### [facility] [address] [place] [address], [place] EPIS MANY Abnormal FEW,OCC,NONE SEEN [facility] Comment on above: Order Comment: No: D o not add to previous draw Performed By: #### 0 0071, 43514, 44504, 06650 #### [facility] [address] [place] [address], [place] Glucose [Mass/Vol] Negative Normal NEGATIVE [facility] Comment on above: Order Comment: No: D o not add to previous draw Performed By: #### 0 0071, 38851, 39044, 34325 #### [facility] [address] [place] [address], [place] GRANULAR CASTS 6-8 Abnormal NONE SEEN [facility] Comment on above: Order Comment: No: D o not add to previous draw Performed By: #### 0 0071, 89737, 08706, 08465 #### [facility] [address] [place] [address], [place] HYALINE CASTS 4-6 Abnormal NONE SEEN [facility] Comment on above: Order Comment: No: D o not add to previous draw Performed By: #### 0 0071, 74025, 58156, 17315 #### [facility] [address] [place] [address], [place] KETONE Negative Normal NEGATIVE [facility] Comment on above: Order Comment: No: D o not add to previous draw Performed By: #### 0 0071, 92381, 47845, 69925 #### [facility] [address] [place] [address], [place] LEUK ARASH LARGE Abnormal NEGATIVE [facility] Comment on above: Order Comment: No: D o not add to previous draw Performed By: #### 0 0071, 45780, 08264, 55967 #### [facility] [address] [place] [address], [facility] MUCUS THREADS FEW Abnormal NONE SEEN [facility] Comment on above: Order Comment: No: D o not add to previous draw Performed By: #### 0 0071, 06719, 50201, 96080 #### [facility] [address] [place] [address], [facility] Nitrite Ql (U) Negative Normal NEGATIVE [facility] Comment on above: Order Comment: No: D o not add to previous draw Performed By: #### 0 0071, 84027, 87499, 42976 #### [facility] [address] [place] [address], [facility] pH (Bld) 5.0 Normal 5.0-8.0 [facility] Comment on above: Order Comment: No: D o not add to previous draw Performed By: #### 0 0071, 41345, 01531, 31589 #### [facility] [address] [place] [address], [facility] Protein (U) [Mass/Vol] 100 mg/dL Abnormal NEGATIVE [facility] Comment on above: Order Comment: No: D o not add to previous draw Performed By: #### 0 0071, 06356, 88427, 56756 #### [facility] [address] [facility] [address], [facility] RBC (U) [#/Vol] 0-2 Abnormal NONE SEEN [facility] Comment on above: Order Comment: No: D o not add to previous draw Performed By: #### 0 0071, 81988, 61307, 61342 #### [facility] [address] [place] [address], [facility] SPEC GRAV 1.015 Normal 1.015-1.020 [facility] Comment on above: Order Comment: No: D o not add to previous draw Performed By: #### 0 0071, 52865, 69813, 36049 #### [facility] [address] [place] [address], [facility] UA COMMENT 2 2-4 Waxy casts Normal [facility] Comment on above: Order Comment: No: D o not add to previous draw Performed By: #### 0 0071, 93565, 22802, 55888 #### [facility] [address] [facility] [place] [address], [facility] WBC UA 51-100 Abnormal NONE SEEN [facility] Comment on above: Order Comment: No: D o not add to previous draw Performed By: #### 0 0071, 19884, 76904, 61017 #### [facility] [address] [place] [address], [place] URINE CONCEPCION STAIN/EOSon EOSINOPHIL SMEAR NONE SEEN Normal NSN [facility] Comment on above: Order Comment: No: D o not add to previous draw [place] Normal [facility] Comment on above: Order Comment: No: D o not add to previous draw Result Comment: Test Performed by [facility] [address] [place] [address] [id number] 01/06/2019 17:38 US RENALon 01-05-2019 US RENAL [facility] Department of Radiology [address] [place] [id number] == Patient Name: JENIFER HERNANDEZ : 1940 Sex: F Age: Race: NA Pt. Location: [id number] Patient Status: I Ordered Date: 01/05/2019 2:15:00 [...] effusion. Electronically signed by:Los Arroyo. Transcribed by: [email or web address], User Resident: Electronically Signed by: LOS ARROYO @ 01/05/2019 03:14 PM Normal [facility] Comment on above: Order Comment: No: D o not add to previous draw BASIC METABOLIC PANELon 11- Calcium [Mass/Vol] 9.2 mg/dL Normal 8.6-10.3 [facility] Comment on above: Order Comment: No: D o not add to previous draw Performed By: #### 5 0608 #### [facility] [address] [place] [address], [facility] Chloride [Moles/Vol] 106 mmol/L Normal 98-107 [facility] Comment on above: Order Comment: No: D o not add to previous draw Performed By: #### 5 0608 #### [facility] [address] [place] [address], [place] CO2 [Moles/Vol] 31 mmol/L Normal 21-31 [facility] Comment on above: Order Comment: No: D o not add to previous draw Performed By: #### 5 0608 #### [facility] [address] [place] [address], [place] Creatinine [Mass/Vol] 1.01 mg/dL Normal 0.60-1.20 [facility] Comment on above: Order Comment: No: D o not add to previous draw Performed By: #### 5 0608 #### [facility] [address] [place] [address], [place] GFR/1.73 sq M predicted among blacks MDRD (S/P/Bld) [Vol rate/Area] mL/min/{1.73_m2} Normal >60 [facility] Comment on above: Order Comment: No: D o not add to previous draw Result Comment: Calc ulation may not be valid for patients over 70 years Performed By: #### 5 0608 #### [facility] [address] [place] [address], [place] GFR/1.73 sq M predicted among non-blacks MDRD (S/P/Bld) [Vol rate/Area] 53 ml/min/1.73sq m Abnormal >60 [facility] Comment on above: Order Comment: No: D o not add to previous draw Result Comment: Calc ulation may not be valid for patients over 70 years Performed By: #### 5 0608 #### [facility] [address] [place] [address], [place] Glucose [Mass/Vol] 93 mg/dL Normal 70-100 [facility] Comment on above: Order Comment: No: D o not add to previous draw Performed By: #### 5 0608 #### [facility] [address] [place] [address], [place] Potassium [Moles/Vol] 3.2 mmol/L Low 3.5-5.1 [facility] Comment on above: Order Comment: No: D o not add to previous draw Performed By: #### 5 0608 #### [facility] [address] [place] [address], [facility] Sodium [Moles/Vol] 145 mmol/L Normal 136-145 [facility] Comment on above: Order Comment: No: D o not add to previous draw Performed By: #### 5 0608 #### [facility] [address] [place] [address], [facility] Urea nitrogen [Mass/Vol] 31 mg/dL High 7-25 [facility] Comment on above: Order Comment: No: D o not add to previous draw Performed By: #### 5 0608 #### [facility] [address] CBC COMPLETE BLOOD COUNTon 02-23-2018 Erythrocyte distribution width (RBC) [Ratio] 17.2 % High 11.5-15.0 [facility] Comment on above: Order Comment: No: D o not add to previous draw Performed By: #### 5 0608 #### [facility] [address] [place] [address], [facility] Hematocrit (Bld) [Volume fraction] 27.2 % Low 36.0-45.0 [facility] Comment on above: Order Comment: No: D o not add to previous draw Performed By: #### 5 0608 #### [facility] [address] [place] [address], [facility] Hemoglobin (Bld) [Mass/Vol] 7.9 g/dL Low 12.0-15.0 [facility] Comment on above: Order Comment: No: D o not add to previous draw Performed By: #### 5 0608 #### [facility] [address] [place] [address], [facility] MCH (RBC) [Entitic mass] 27.1 pg Normal 27.0-33.0 [facility] Comment on above: Order Comment: No: D o not add to previous draw Performed By: #### 5 0608 #### [facility] [address] [place] [address], [facility] MCHC (RBC) [Mass/Vol] 29.0 g/dL Low 32.0-35.0 [facility] Comment on above: Order Comment: No: D o not add to previous draw Performed By: #### 5 0608 #### [facility] [address] [place] [address], [facility] MCV (RBC) [Entitic vol] 93.2 fL Normal 82.0-98.0 [facility] Comment on above: Order Comment: No: D o not add to previous draw Performed By: #### 5 0608 #### [facility] [address] [place] [address], [facility] Nucleated RBC/100 WBC (Bld) [Ratio] 0 % Normal 0-0 [facility] Comment on above: Order Comment: No: D o not add to previous draw Performed By: #### 5 0608 #### [facility] [address] [place] [address], [facility] PLAT CNT 238 10*3/uL Normal 150-400 [facility] Comment on above: Order Comment: No: D o not add to previous draw Performed By: #### 5 0608 #### [facility] [address] [place] [address], [facility] RBC (Bld) [#/Vol] 2.92 10*6/uL Low 3.80-5.00 [facility] Comment on above: Order Comment: No: D o not add to previous draw Performed By: #### 5 0608 #### [facility] [address] [facility] [place] [id number], [facility] WBC (Bld) [#/Vol] 7.05 10*3/uL Normal 4.00-10.60 [facility] Comment on above: Order Comment: No: D o not add to previous draw Performed By: #### 5 0608 #### [facility] [address] [place] [address], [facility] BASIC METABOLIC PANELon 11-0 Calcium [Mass/Vol] 9.5 mg/dL Normal 8.6-10.3 [facility] Comment on above: Order Comment: No: D o not add to previous draw Performed By: #### 5 0608 #### [facility] [address] [place] [address], [facility] Chloride [Moles/Vol] 103 mmol/L Normal 98-107 [facility] Comment on above: Order Comment: No: D o not add to previous draw Performed By: #### 5 0608 #### [facility] [address] [place] [address], [facility] CO2 [Moles/Vol] 34 mmol/L High 21-31 [facility] Comment on above: Order Comment: No: D o not add to previous draw Performed By: #### 5 0608 #### [facility] [address] [place] [address], [facility] Creatinine [Mass/Vol] 1.09 mg/dL Normal 0.60-1.20 [facility] Comment on above: Order Comment: No: D o not add to previous draw Performed By: #### 5 0608 #### [facility] [address] [place] [address], [facility] GFR/1.73 sq M predicted among blacks MDRD (S/P/Bld) [Vol rate/Area] 59 ml/min/1.73sq m Abnormal >60 [facility] Comment on above: Order Comment: No: D o not add to previous draw Result Comment: Calc ulation may not be valid for patients over 70 years Performed By: #### 5 0608 #### [facility] [address] [place] [address], [facility] [facility] GFR/1.73 sq M predicted among non-blacks MDRD (S/P/Bld) [Vol rate/Area] 48 ml/min/1.73sq m Abnormal >60 [facility] Comment on above: Order Comment: No: D o not add to previous draw Result Comment: Calc ulation may not be valid for patients over 70 years Performed By: #### 5 0608 #### [facility] [address] [place] [address], [place] Glucose [Mass/Vol] 149 mg/dL High 70-100 [facility] Comment on above: Order Comment: No: D o not add to previous draw Performed By: #### 5 0608 #### [facility] [address] [place] [address], [place] Potassium [Moles/Vol] 3.9 mmol/L Normal 3.5-5.1 [facility] Comment on above: Order Comment: No: D o not add to previous draw Performed By: #### 5 0608 #### [facility] [address] [place] [address], [place] Sodium [Moles/Vol] 144 mmol/L Normal 136-145 [facility] Comment on above: Order Comment: No: D o not add to previous draw Performed By: #### 5 0608 #### [facility] [address] [place] [id number], [place] Urea nitrogen [Mass/Vol] 29 mg/dL High 7-25 [facility] Comment on above: Order Comment: No: D o not add to previous draw Performed By: #### 5 0608 #### [facility] [address] [place] [address], [facility] HEMATOCRITon 12-23-2018 Hematocrit (Bld) [Volume fraction] 28.3 % Low 36.0-45.0 [facility] Comment on above: Order Comment: No: D o not add to previous draw Performed By: #### 9 2089, [id number] ####[facility] [place] [address], [facility] HEMOGLOBINon 12-23-2018 Hemoglobin (Bld) [Mass/Vol] 8.2 g/dL Low 12.0-15.0 [facility] Comment on above: Order Comment: No: D o not add to previous draw Performed By: #### 9 2089, [id number] ####[facility] [place] [address], [facility] MAGNESIUM BLOODon 12-23-2018 Magnesium [Mass/Vol] 1.8 mg/dL Low 1.9-2.7 [facility] Comment on above: Order Comment: No: D o not add to previous draw Performed By: #### 1 0070, [id number] ####[facility] [place] [address], [facility] ANAon 12-22-2018 Nuclear Ab IF (S) [Titer] <1:40 Normal <1:40,1:40 [facility] Comment on above: Order Comment: No: D o not add to previous draw Performed By: #### 5 0608 #### [facility] [address] [facility] [place] [address], [facility] BASIC METABOLIC PANELon Calcium [Mass/Vol] 9.2 mg/dL Normal 8.6-10.3 [facility] Comment on above: Order Comment: No: D o not add to previous draw Performed By: #### 0 0071 ####[facility] [place] [address], [facility] Chloride [Moles/Vol] 103 mmol/L Normal 98-107 [facility] Comment on above: Order Comment: No: D o not add to previous draw Performed By: #### 0 0071 ####[facility] [facility] [place] [address], [facility] CO2 [Moles/Vol] 30 mmol/L Normal 21-31 [facility] Comment on above: Order Comment: No: D o not add to previous draw Performed By: #### 0 0071 ####[facility] [place] [address], [facility] Creatinine [Mass/Vol] 1.05 mg/dL Normal 0.60-1.20 [facility] Comment on above: Order Comment: No: D o not add to previous draw Performed By: #### 0 0071 ####[facility] [place] [address], [facility] GFR/1.73 sq M predicted among blacks MDRD (S/P/Bld) [Vol rate/Area] mL/min/{1.73_m2} Normal >60 [facility] Comment on above: Order Comment: No: D o not add to previous draw Result Comment: Calc ulation may not be valid for patients over 70 years Performed By: #### 0 0071 ####[facility] [place] [address], [facility] GFR/1.73 sq M predicted among non-blacks MDRD (S/P/Bld) [Vol rate/Area] 50 ml/min/1.73sq m Abnormal >60 [facility] Comment on above: Order Comment: No: D o not add to previous draw Result Comment: Calc ulation may not be valid for patients over 70 years Performed By: #### 0 0071 ####[facility] [place] [address], [facility] Glucose [Mass/Vol] 116 mg/dL High 70-100 [facility] Comment on above: Order Comment: No: D o not add to previous draw Performed By: #### 0 0071 ####[facility] [place] [address], [facility] Potassium [Moles/Vol] 3.7 mmol/L Normal 3.5-5.1 [facility] Comment on above: Order Comment: No: D o not add to previous draw Performed By: #### 0 0071 ####[facility] [id number], [facility] Sodium [Moles/Vol] 142 mmol/L Normal 136-145 [facility] Comment on above: Order Comment: No: D o not add to previous draw Performed By: #### 0 0071 ####[facility] [place] [address], [facility] Urea nitrogen [Mass/Vol] 28 mg/dL High 7-25 [facility] Comment on above: Order Comment: No: D o not add to previous draw Performed By: #### 0 0071 ####[facility] [place] [address], [facility] COMPLEMENT 3on 12-22-2018 COMPLEMENT 3 123 mg/dL Normal 79-152 [facility] Comment on above: Order Comment: Yes: Add to Previous draw if able Performed By: #### 1 0238, [id number] ####[facility] [place] [address], [facility] COMPLEMENT 4on 12-22-2018 COMPLEMENT 4 18 mg/dL Normal 16-38 [facility] Comment on above: Order Comment: Yes: Add to Previous draw if able Performed By: #### 1 0238, [id number] ####[facility] [id number], [facility] HEMOGLOBINon 12-22-2018 Hemoglobin (Bld) [Mass/Vol] 7.8 g/dL Low 12.0-15.0 [facility] Comment on above: Order Comment: No: D o not add to previous draw Performed By: #### 9 2089 ####[facility] [id number], [facility] PROTEIN ELECT Joseph 12-22-2018 Protein [Mass/Vol] 6.2 g/dL Normal 6.0-8.3 [facility] Comment on above: Order Comment: Yes: Add to Previous draw if able Performed By: #### 4 1661 ####[facility] [place] [address], [facility] Protein [Mass/Vol] Normal [facility] Comment on above: Order Comment: Yes: Add to Previous draw if able Result Comment: Hypo albuminemia is seen. This may be dilutional (from I.V. fluids) or nutritional in origin. Performed By: #### 4 1661 ####[facility] [place] [address], [facility] BASIC METABOLIC PANELon 11-0 Calcium [Mass/Vol] 9.1 mg/dL Normal 8.6-10.3 [facility] Comment on above: Order Comment: No: D o not add to previous draw Performed By: #### 1 69, [id number] ####[place] [id number] [facility] [id number], [facility] Chloride [Moles/Vol] 104 mmol/L Normal 98-107 [facility] Comment on above: Order Comment: No: D o not add to previous draw Performed By: #### 1 69, 59157 ####[facility] [facility] [place] [address], [facility] CO2 [Moles/Vol] 30 mmol/L Normal 21-31 [facility] Comment on above: Order Comment: No: D o not add to previous draw Performed By: #### 1 69, 46444 ####[facility] [place] [address], [facility] Creatinine [Mass/Vol] 1.10 mg/dL Normal 0.60-1.20 [facility] Comment on above: Order Comment: No: D o not add to previous draw Performed By: #### 1 0, 42483 ####[facility] [place] [address], [facility] GFR/1.73 sq M predicted among blacks MDRD (S/P/Bld) [Vol rate/Area] 58 ml/min/1.73sq m Abnormal >60 [facility] Comment on above: Order Comment: No: D o not add to previous draw Result Comment: Calc ulation may not be valid for patients over 70 years Performed By: #### 1 69, 02610 ####[facility] [place] [address], [facility] GFR/1.73 sq M predicted among non-blacks MDRD (S/P/Bld) [Vol rate/Area] 47 ml/min/1.73sq m Abnormal >60 [facility] Comment on above: Order Comment: No: D o not add to previous draw Result Comment: Calc ulation may not be valid for patients over 70 years Performed By: #### 1 69, 34884 ####[facility] [place] [address], [facility] Glucose [Mass/Vol] 88 mg/dL Normal 70-100 [facility] Comment on above: Order Comment: No: D o not add to previous draw Performed By: #### 1 69, 70014 ####[facility] [place] [address], [place] Potassium [Moles/Vol] 3.4 mmol/L Low 3.5-5.1 [facility] Comment on above: Order Comment: No: D o not add to previous draw Performed By: #### 1 69, 08725 ####[facility] [place] [address], [place] Sodium [Moles/Vol] 142 mmol/L Normal 136-145 [facility] Comment on above: Order Comment: No: D o not add to previous draw Performed By: #### 1 69, 26414 ####[facility] [place] [address], [place] Urea nitrogen [Mass/Vol] 33 mg/dL High 7-25 [facility] Comment on above: Order Comment: No: D o not add to previous draw Performed By: #### 1 69, 21208 ####[facility] [place] [address], [facility] HEMOGLOBINon 12-21-2018 Hemoglobin (Bld) [Mass/Vol] 7.7 g/dL Low 12.0-15.0 [facility] Comment on above: Order Comment: No: D o not add to previous draw Performed By: #### 0 0071 #### [facility] [address] [place] [address], [facility] MAGNESIUM BLOODon 12-21-2018 Magnesium [Mass/Vol] 1.8 mg/dL Low 1.9-2.7 [facility] Comment on above: Order Comment: No: D o not add to previous draw Performed By: #### 1 0070, 84495 ####[facility] [place] [address], [facility] BASIC METABOLIC PANELon Calcium [Mass/Vol] 9.3 mg/dL Normal 8.6-10.3 [facility] Comment on above: Order Comment: No: D o not add to previous draw Performed By: #### 0 0071 #### [facility] [address] [place] [address], [facility] Chloride [Moles/Vol] 102 mmol/L Normal 98-107 [facility] Comment on above: Order Comment: No: D o not add to previous draw Performed By: #### 0 0071 #### [facility] [address] [place] [address], [place] CO2 [Moles/Vol] 32 mmol/L High 21-31 [facility] Comment on above: Order Comment: No: D o not add to previous draw Performed By: #### 0 0071 #### [facility] [address] [place] [address], [place] Creatinine [Mass/Vol] 1.10 mg/dL Normal 0.60-1.20 [facility] Comment on above: Order Comment: No: D o not add to previous draw Performed By: #### 0 0071 #### [facility] [address] [place] [address], [place] GFR/1.73 sq M predicted among blacks MDRD (S/P/Bld) [Vol rate/Area] 58 ml/min/1.73sq m Abnormal >60 [facility] Comment on above: Order Comment: No: D o not add to previous draw Result Comment: Calc ulation may not be valid for patients over 70 years Performed By: #### 0 0071 #### [facility] [address] [place] [address], [place] GFR/1.73 sq M predicted among non-blacks MDRD (S/P/Bld) [Vol rate/Area] 47 ml/min/1.73sq m Abnormal >60 [facility] Comment on above: Order Comment: No: D o not add to previous draw Result Comment: Calc ulation may not be valid for patients over 70 years Performed By: #### 0 0071 #### [facility] [address] [place] [address], [place] Glucose [Mass/Vol] 120 mg/dL High 70-100 [facility] Comment on above: Order Comment: No: D o not add to previous draw Performed By: #### 0 0071 #### [facility] [address] [place] [address], [place] Potassium [Moles/Vol] 3.3 mmol/L Low 3.5-5.1 [facility] Comment on above: Order Comment: No: D o not add to previous draw Performed By: #### 0 0071 #### [facility] [address] [place] [address], [place] Sodium [Moles/Vol] 142 mmol/L Normal 136-145 [facility] Comment on above: Order Comment: No: D o not add to previous draw Performed By: #### 0 0071 #### [facility] [address] Urea nitrogen [Mass/Vol] 36 mg/dL High 7-25 [facility] Comment on above: Order Comment: No: D o not add to previous draw Performed By: #### 0 0071 #### [facility] [address] [facility] CBC COMPLETE BLOOD COUNTon 02-19-2018 Erythrocyte distribution width (RBC) [Ratio] 15.8 % High 11.5-15.0 [facility] Comment on above: Order Comment: No: D o not add to previous draw Performed By: #### 0 0071 #### [facility] [address] Hematocrit (Bld) [Volume fraction] 25.4 % Low 36.0-45.0 [facility] Comment on above: Order Comment: No: D o not add to previous draw Performed By: #### 0 0071 #### [facility] [address] [facility] [address] Hemoglobin (Bld) [Mass/Vol] 7.8 g/dL Low 12.0-15.0 [facility] Comment on above: Order Comment: No: D o not add to previous draw Performed By: #### 0 0071 #### [facility] [address] [place] [address], [facility] MCH (RBC) [Entitic mass] 27.1 pg Normal 27.0-33.0 [facility] Comment on above: Order Comment: No: D o not add to previous draw Performed By: #### 0 0071 #### [facility] [address] [facility] [place] [address], [facility] MCHC (RBC) [Mass/Vol] 30.7 g/dL Low 32.0-35.0 [facility] Comment on above: Order Comment: No: D o not add to previous draw Performed By: #### 0 0071 #### [facility] [address] [facility] [place] [address], [facility] MCV (RBC) [Entitic vol] 88.2 fL Normal 82.0-98.0 [facility] Comment on above: Order Comment: No: D o not add to previous draw Performed By: #### 0 0071 #### [facility] [address] [place] [address], [facility] Nucleated RBC/100 WBC (Bld) [Ratio] 0 % Normal 0-0 [facility] Comment on above: Order Comment: No: D o not add to previous draw Performed By: #### 0 0071 #### [facility] [address] [place] [place] [address], [facility] PLAT CNT 227 10*3/uL Normal 150-400 [facility] Comment on above: Order Comment: No: D o not add to previous draw Performed By: #### 0 0071 #### [facility] [address] [place] [address], [facility] RBC (Bld) [#/Vol] 2.88 10*6/uL Low 3.80-5.00 [facility] Comment on above: Order Comment: No: D o not add to previous draw Performed By: #### 0 0071 #### [facility] [address] [place] [address], [facility] WBC (Bld) [#/Vol] 8.61 10*3/uL Normal 4.00-10.60 [facility] Comment on above: Order Comment: No: D o not add to previous draw Performed By: #### 0 0071 #### [facility] [address] [facility] [place] [address], [facility] MAGNESIUM BLOODon 12-20-2018 Magnesium [Mass/Vol] 1.9 mg/dL Normal 1.9-2.7 [facility] Comment on above: Order Comment: No: D o not add to previous draw Performed By: #### 0 0071 #### [facility] [address] [place] [address], [facility] BASIC METABOLIC PANELon 11-0 Calcium [Mass/Vol] 9.2 mg/dL Normal 8.6-10.3 [facility] Comment on above: Order Comment: No: D o not add to previous draw Performed By: #### 5 0608 #### [facility] [address] [place] [address], [place] Chloride [Moles/Vol] 103 mmol/L Normal 98-107 [facility] Comment on above: Order Comment: No: D o not add to previous draw Performed By: #### 5 0608 #### [facility] [address] [place] [address], [facility] CO2 [Moles/Vol] 30 mmol/L Normal 21-31 [facility] Comment on above: Order Comment: No: D o not add to previous draw Performed By: #### 5 0608 #### [facility] [address] [place] [address], [facility] Creatinine [Mass/Vol] 1.27 mg/dL High 0.60-1.20 [facility] Comment on above: Order Comment: No: D o not add to previous draw Performed By: #### 5 0608 #### [facility] [address] [place] [address], [facility] GFR/1.73 sq M predicted among blacks MDRD (S/P/Bld) [Vol rate/Area] 49 ml/min/1.73sq m Abnormal >60 [facility] Comment on above: Order Comment: No: D o not add to previous draw Result Comment: Calc ulation may not be valid for patients over 70 years Performed By: #### 5 0608 #### [facility] [address] [place] [id number], [facility] GFR/1.73 sq M predicted among non-blacks MDRD (S/P/Bld) [Vol rate/Area] 41 ml/min/1.73sq m Abnormal >60 [facility] Comment on above: Order Comment: No: D o not add to previous draw Result Comment: Calc ulation may not be valid for patients over 70 years Performed By: #### 5 0608 #### [facility] [address] [place] [address], [place] Glucose [Mass/Vol] 162 mg/dL High 70-100 [facility] Comment on above: Order Comment: No: D o not add to previous draw Performed By: #### 5 0608 #### [facility] [address] [place] [address], [place] Potassium [Moles/Vol] 4.2 mmol/L Normal 3.5-5.1 [facility] Comment on above: Order Comment: No: D o not add to previous draw Performed By: #### 5 0608 #### [facility] [address] [place] [address], [place] Sodium [Moles/Vol] 142 mmol/L Normal 136-145 [facility] Comment on above: Order Comment: No: D o not add to previous draw Performed By: #### 5 0608 #### [facility] [address] [place] [address], [place] Urea nitrogen [Mass/Vol] 43 mg/dL High 7-25 [facility] Comment on above: Order Comment: No: D o not add to previous draw Performed By: #### 5 0608 #### [facility] [address] [place] [address], [place] CREATININE URINE RANDOMon Creatinine [Mass/Vol] 32.0 mg/dL Normal [facility] Comment on above: Order Comment: No: D o not add to previous draw Result Comment: Ther e are no established reference values for random urine specimens Performed By: #### 0 0071 #### [facility] [address] [place] [address], [place] FERRITINon 12-19-2018 Ferritin [Mass/Vol] 20 ng/mL Normal 11-307 [facility] Comment on above: Order Comment: No: D o not add to previous draw Performed By: #### 0 0071 #### [facility] [address] [place] [id number], [facility] HEMOGLOBINon 12-19-2018 Hemoglobin (Bld) [Mass/Vol] 6.8 g/dL Low 12.0-15.0 [facility] Comment on above: Order Comment: No: D o not add to previous draw Performed By: #### 5 0608 #### [facility] [address] [place] [address], [facility] MAGNESIUM BLOODon 12-19-2018 Magnesium [Mass/Vol] 1.6 mg/dL Low 1.9-2.7 [facility] Comment on above: Order Comment: No: D o not add to previous draw Performed By: #### 0 0071 #### [facility] [address] [place] [address], [facility] PROTEIN ELECT URon 9 Protein [Mass/Vol] 9.0 mg/dL Normal [facility] Comment on above: Order Comment: No: D o not add to previous draw Result Comment: Ther e are no established reference values for random urine specimens Performed By: #### 0 0071 #### [facility] [address] [place] [address], [facility] Protein [Mass/Vol] URINE PROTEIN ELECTROPHORESIS NOT DONE; T.P. <10 MG/DL Normal [facility] Comment on above: Order Comment: No: D o not add to previous draw Performed By: #### 0 0071 #### [facility] [address] [place] [address], [facility] TIBC- INCLUDES IRONon 2018 FE SATURATION 8 % Low 20-50 [facility] Comment on above: Order Comment: No: D o not add to previous draw Performed By: #### 5 0608 #### [facility] [address] [place] [address], [facility] Iron [Mass/Vol] 33 ug/dL Low 50-212 [facility] Comment on above: Order Comment: No: D o not add to previous draw Performed By: #### 5 0608 #### [facility] [address] [place] [address], [facility] TIBC 431 mcg/dL Normal 250-450 [facility] Comment on above: Order Comment: No: D o not add to previous draw Performed By: #### 5 0608 #### [facility] [address] [place] [address], [facility] UIBC 398 mcg/dL High 155-355 [facility] Comment on above: Order Comment: No: D o not add to previous draw Performed By: #### 5 0608 #### [facility] [address] [place] [address], [facility] UA,MICROSCOPIC REQUIREDon Appearance (U) CLEAR Normal CLEAR [facility] Comment on above: Order Comment: No: D o not add to previous draw Performed By: #### 0 0071 #### [facility] [address] [place] [address], [facility] Bilirubin [Mass/Vol] Negative Normal NEGATIVE [facility] Comment on above: Order Comment: No: D o not add to previous draw Performed By: #### 0 0071 #### [facility] [address] [facility] [place] [address], [facility] BLOOD Negative Normal NEGATIVE [facility] Comment on above: Order Comment: No: D o not add to previous draw Performed By: #### 0 0071 #### [facility] [address] [place] [address], [facility] Color (U) STRAW Abnormal YELLOW [facility] Comment on above: Order Comment: No: D o not add to previous draw Performed By: #### 0 0071 #### [facility] [address] [place] [address], [facility] EPIS MOD Abnormal FEW,OCC,NONE SEEN [facility] Comment on above: Order Comment: No: D o not add to previous draw Performed By: #### 0 0071 #### [facility] [address] [place] [address], [place] Glucose [Mass/Vol] Negative Normal NEGATIVE [facility] Comment on above: Order Comment: No: D o not add to previous draw Performed By: #### 0 0071 #### [facility] [address] [place] [address], [place] HYALINE CASTS 2 /LPF Abnormal NONE SEEN [facility] Comment on above: Order Comment: No: D o not add to previous draw Performed By: #### 0 0071 #### [facility] [address] [place] [address], [place] KETONE Negative Normal NEGATIVE [facility] Comment on above: Order Comment: No: D o not add to previous draw Performed By: #### 0 0071 #### [facility] [address] [place] [address], [place] LEUK ARASH Negative Normal NEGATIVE [facility] Comment on above: Order Comment: No: D o not add to previous draw Performed By: #### 0 0071 #### [facility] [address] [place] [address], [place] Nitrite Ql (U) Negative Normal NEGATIVE [facility] Comment on above: Order Comment: No: D o not add to previous draw Performed By: #### 0 0071 #### [facility] [address] [place] [address], [place] pH (Bld) 6.0 Normal 5.0-8.0 [facility] Comment on above: Order Comment: No: D o not add to previous draw Performed By: #### 0 0071 #### [facility] [address] [place] [address], [place] Protein [Mass/Vol] Negative Normal NEGATIVE [facility] Comment on above: Order Comment: No: D o not add to previous draw Performed By: #### 0 0071 #### [address] RBC (Bld) [#/Vol] 0-2 Abnormal NONE SEEN [facility] Comment on above: Order Comment: No: D o not add to previous draw Performed By: #### 0 0071 #### [address] SPEC GRAV 1.008 Low 1.015-1.020 [facility] Comment on above: Order Comment: No: D o not add to previous draw Performed By: #### 0 0071 #### [address] WBC UA 0-2 Abnormal NONE SEEN [facility] Comment on above: Order Comment: No: D o not add to previous draw Performed By: #### 0 0071 #### [address] US RENALon 12-19-2018 RENAL [facility] Department of Radiology [address] [place] [phone] == Patient Name: JENIFER HERNANDEZ : 1940 Sex: F Age: Race: NA Pt. Location: [id number] Patient Status: I Ordered Date: 12/19/2018 1:20:00 [...] findings. Electronically signed by:Tyree Momin. Transcribed by: [email or web address], User Resident: JOSE CHASE Electronically Signed by: TYREE MOMIN @ 12/20/2018 03:17 PM I personally read this/these film(s) with this resident Normal [facility] Comment on above: Order Comment: No: D o not add to previous draw ANTI C3 DATon 12-18-2018 ANTI C3 SOUTH Negative Normal [facility] Comment on above: Performed By: #### 5 0608 #### [facility] [address] [place] [address], [facility] ANTI IGG DATon 12-18-2018 ANTI IGG SOUTH Negative Normal [facility] Comment on above: Performed By: #### 5 0608 #### [facility] [address] ANTIBODY IDENTIFICATIONon ANTIBODY ID C Normal [facility] Comment on above: Performed By: #### 5 0608 #### [facility] [address] [place] [address], [facility] BASIC METABOLIC PANELon 10-3 Calcium [Mass/Vol] 9.2 mg/dL Normal 8.6-10.3 [facility] Comment on above: Order Comment: No: D o not add to previous draw Performed By: #### 0 0071, 02039, 69970, 88989 #### [facility] [address] [place] [address], [facility] Chloride [Moles/Vol] 98 mmol/L Normal 98-107 [facility] Comment on above: Order Comment: No: D o not add to previous draw Performed By: #### 0 0071, 75330, 60458, 97524 #### [facility] [address] [place] [address], [facility] CO2 [Moles/Vol] 30 mmol/L Normal 21-31 [facility] Comment on above: Order Comment: No: D o not add to previous draw Performed By: #### 0 0071, 59434, 14879, 48908 #### [facility] [address] [place] [address], [facility] Creatinine [Mass/Vol] 1.59 mg/dL High 0.60-1.20 [facility] Comment on above: Order Comment: No: D o not add to previous draw Performed By: #### 0 0071, 19780, 08611, 47777 #### [facility] [address] [place] [address], [facility] GFR/1.73 sq M predicted among blacks MDRD (S/P/Bld) [Vol rate/Area] 38 ml/min/1.73sq m Abnormal >60 [facility] Comment on above: Order Comment: No: D o not add to previous draw Result Comment: Calc ulation may not be valid for patients over 70 years Performed By: #### 0 0071, 71938, 25908, 98536 #### [facility] [address] [place] [address], [facility] GFR/1.73 sq M predicted among non-blacks MDRD (S/P/Bld) [Vol rate/Area] 31 ml/min/1.73sq m Abnormal >60 [facility] Comment on above: Order Comment: No: D o not add to previous draw Result Comment: Calc ulation may not be valid for patients over 70 years Performed By: #### 0 0071, 57526, 08446, 12139 #### [facility] [address] [place] [address], [facility] Glucose [Mass/Vol] 115 mg/dL High 70-100 [facility] Comment on above: Order Comment: No: D o not add to previous draw Performed By: #### 0 0071, 23748, 38854, 87120 #### [facility] [address] [place] [address], [facility] Potassium [Moles/Vol] 3.1 mmol/L Low 3.5-5.1 [facility] Comment on above: Order Comment: No: D o not add to previous draw Performed By: #### 0 0071, 44141, 25253, 52758 #### [facility] [address] [place] [address], [facility] Sodium [Moles/Vol] 137 mmol/L Normal 136-145 [facility] Comment on above: Order Comment: No: D o not add to previous draw Performed By: #### 0 0071, 90617, 31115, 66547 #### [facility] [address] [place] [address], [facility] Urea nitrogen [Mass/Vol] 53 mg/dL High 7-25 [facility] Comment on above: Order Comment: No: D o not add to previous draw Performed By: #### 0 0071, 84292, 70046, 85436 #### [facility] [address] [facility] [facility] [address] CBC COMPLETE BLOOD COUNTon Erythrocyte distribution width (RBC) [Ratio] 15.9 % High 11.5-15.0 [facility] Comment on above: Order Comment: No: D o not add to previous draw Performed By: #### 5 0608 #### [facility] [address] [place] [address], [facility] Hematocrit (Bld) [Volume fraction] 21.4 % Low 36.0-45.0 [facility] Comment on above: Order Comment: No: D o not add to previous draw Performed By: #### 5 0608 #### [facility] [address] Hemoglobin (Bld) [Mass/Vol] 6.5 g/dL Low 12.0-15.0 [facility] Comment on above: Order Comment: No: D o not add to previous draw Performed By: #### 5 0608 #### [facility] [address] [facility] [address], [facility] MCH (RBC) [Entitic mass] 26.5 pg Low 27.0-33.0 [facility] Comment on above: Order Comment: No: D o not add to previous draw Performed By: #### 5 0608 #### [facility] [address] [facility] [place] [address], [facility] MCHC (RBC) [Mass/Vol] 30.4 g/dL Low 32.0-35.0 [facility] Comment on above: Order Comment: No: D o not add to previous draw Performed By: #### 5 0608 #### [facility] [address] [place] [address], [facility] MCV (RBC) [Entitic vol] 87.3 fL Normal 82.0-98.0 [facility] Comment on above: Order Comment: No: D o not add to previous draw Performed By: #### 5 0608 #### [facility] [address] [place] [place] [address], [facility] Nucleated RBC/100 WBC (Bld) [Ratio] 0 % Normal 0-0 [facility] Comment on above: Order Comment: No: D o not add to previous draw Performed By: #### 5 0608 #### [facility] [address] [facility] [address], [facility] PLAT CNT 232 10*3/uL Normal 150-400 [facility] Comment on above: Order Comment: No: D o not add to previous draw Performed By: #### 5 0608 #### [facility] [address] [place] [address], [facility] RBC (Bld) [#/Vol] 2.45 10*6/uL Low 3.80-5.00 [facility] Comment on above: Order Comment: No: D o not add to previous draw Performed By: #### 5 0608 #### [facility] [address] [place] [address], [facility] WBC (Bld) [#/Vol] 7.40 10*3/uL Normal 4.00-10.60 [facility] Comment on above: Order Comment: No: D o not add to previous draw Performed By: #### 5 0608 #### [facility] [address] Cardiovascular Lab Reporton 12-18-2018 Cardiovascular Lab Report [facility] Patient Name: [facility] [place] MR #: [id number] Physician: Herber Love M.D. Medicine Service Date: 12/17/2018 Division of Birthdate: 1940 Cardiology Room #: [id number] Adult Cardiovascular Services [facility] [place] [address] Cardiovascular Laboratory Report INDICATION: The patient is [...] signed informed consent. She was brought to catheterization laboratory technician in a fasting state. The right neck area was prepped and draped in usual fashion. Using ultrasound guidance and micropuncture technique, the right internal jugular vein was accessed. A 6-Gambian x 11 cm sheath was placed. A 6-Gambian Thompson catheter was used for right heart [...] A/Herber Allen M.D. Date Trans: 12/18/2018 08:22 A/mmo [id number] cc: Edu Odonnell D.O. [facility]anny Roger kedar[place]anny [place] [id number] [place] [facility] HEMOGLOBINon 12-18-2018 Hemoglobin (Bld) [Mass/Vol] 7.3 g/dL Low 12.0-15.0 [facility] Comment on above: Order Comment: No: D o not add to previous draw Performed By: #### 5 0608 #### [facility] [address] [place] [address], [facility] Hemoglobin (Bld) [Mass/Vol] 7.2 g/dL Low 12.0-15.0 [facility] Comment on above: Order Comment: No: D o not add to previous draw Performed By: #### 5 0608 #### [facility] [address] [facility] [place] [address], [facility] Hemoglobin (Bld) [Mass/Vol] 6.9 g/dL Low 12.0-15.0 [facility] Comment on above: Order Comment: No: D o not add to previous draw Performed By: #### 9 2089 #### [facility] [address] [facility] [address], [facility] IRON BLOODon 12-18-2018 Iron [Mass/Vol] 19 ug/dL Low 50-212 [facility] Comment on above: Order Comment: No: D o not add to previous draw Performed By: #### 0 0071, 70526, 33056, 88559 #### [facility] [address] [place] [address], [facility] MAGNESIUM BLOODon 12-18-2018 Magnesium [Mass/Vol] 1.8 mg/dL Low 1.9-2.7 [facility] Comment on above: Order Comment: No: D o not add to previous draw Performed By: #### 0 0071, 32999, 04067, 90505 #### [facility] [address] [place] [address], [facility] PHOSPHORUS BLOODon 9 Phosphate [Mass/Vol] 3.1 mg/dL Normal 2.5-5.0 [facility] Comment on above: Order Comment: No: D o not add to previous draw Performed By: #### 0 0071, 80360, 22805, 45870 #### [facility] [address] [place] [address], [facility] RBC'S 2 UNITSon 12-18-2018 CROSSMATCH INTERP 1 COMP Normal [facility] Comment on above: Performed By: #### 5 0608 #### [facility] [address] [place] [address], [facility] CROSSMATCH INTERP 2 COMP Normal [facility] Comment on above: Performed By: #### 5 0608 #### [facility] [address] [facility] [place] [address], [facility] PRODUCT CODE 1 E0336 Normal [facility] Comment on above: Performed By: #### 5 0608 #### [facility] [address] [place] [address], [facility] PRODUCT CODE 2 E0336 Normal [facility] Comment on above: Performed By: #### 5 0608 #### [facility] [address] [facility] [place] [address], [facility] PRODUCT STATUS 1 PT Normal [facility] Comment on above: Result Comment: Resu lt changed by IF on 12/19/2018 09:14. The previous value was XM. Result changed by IF on 12/20/2018 00:30. The previous value was IS. Performed By: #### 5 0608 #### [facility] [address] [place] [id number], [facility] PRODUCT STATUS 2 RE Normal [facility] Comment on above: Result Comment: Resu lt changed by IF on 12/22/2018 07:27. The previous value was XM. Performed By: #### 5 0608 #### [facility] [address] [place] [address], [facility] UNIT ABO 1 A Normal [facility] Comment on above: Performed By: #### 5 0608 #### [facility] [address] [place] [address], [facility] UNIT ABO 2 A Normal [facility] Comment on above: Performed By: #### 5 0608 #### [facility] [address] [place] [address], [facility] UNIT ID 1 [id number] Normal [facility] Comment on above: Performed By: #### 5 0608 #### [facility] [address] [place] [address], [facility] UNIT ID 2 [id number] Normal [facility] Comment on above: Performed By: #### 5 0608 #### [facility] [address] [place] [address], [facility] UNIT RH 1 Negative Normal [facility] Comment on above: Performed By: #### 5 0608 #### [facility] [address] [facility] [address], [facility] UNIT RH 2 Negative Normal [facility] Comment on above: Performed By: #### 5 0608 #### [facility] [address] [place] [address], [facility] TYPE AND SCREENon 12-18-2018 ABO INTERPRETATION A Normal [facility] Comment on above: Performed By: #### 5 0608 #### [facility] [address] [place] [address], [facility] RH INTERPRETATION Positive Normal [facility] Comment on above: Performed By: #### 5 0608 #### [facility] [address] [place] [address], [facility] BASIC METABOLIC PANELon 10-3 Calcium [Mass/Vol] 9.5 mg/dL Normal 8.6-10.3 [facility] Comment on above: Order Comment: No: D o not add to previous draw Performed By: #### 0 0071 #### [facility] [address] [place] [address], [place] Chloride [Moles/Vol] 95 mmol/L Low 98-107 [facility] Comment on above: Order Comment: No: D o not add to previous draw Performed By: #### 0 0071 #### [facility] [address] [place] [address], [place] CO2 [Moles/Vol] 29 mmol/L Normal 21-31 [facility] Comment on above: Order Comment: No: D o not add to previous draw Performed By: #### 0 0071 #### [facility] [address] [place] [address], [place] Creatinine [Mass/Vol] 2.01 mg/dL High 0.60-1.20 [facility] Comment on above: Order Comment: No: D o not add to previous draw Performed By: #### 0 0071 #### [facility] [address] [place] [address], [place] GFR/1.73 sq M predicted among blacks MDRD (S/P/Bld) [Vol rate/Area] 29 ml/min/1.73sq m Abnormal >60 [facility] Comment on above: Order Comment: No: D o not add to previous draw Result Comment: Calc ulation may not be valid for patients over 70 years Performed By: #### 0 0071 #### [facility] [address] [place] [address], [place] GFR/1.73 sq M predicted among non-blacks MDRD (S/P/Bld) [Vol rate/Area] 24 ml/min/1.73sq m Abnormal >60 [facility] Comment on above: Order Comment: No: D o not add to previous draw Result Comment: Calc ulation may not be valid for patients over 70 years Performed By: #### 0 0071 #### [facility] [address] [place] [address], [place] Glucose [Mass/Vol] 125 mg/dL High 70-100 [facility] Comment on above: Order Comment: No: D o not add to previous draw Performed By: #### 0 0071 #### [facility] [address] [place] [address], [place] Potassium [Moles/Vol] 2.8 mmol/L Low 3.5-5.1 [facility] Comment on above: Order Comment: No: D o not add to previous draw Performed By: #### 0 0071 #### [facility] [address] [place] [address], [place] Sodium [Moles/Vol] 135 mmol/L Low 136-145 [facility] Comment on above: Order Comment: No: D o not add to previous draw Performed By: #### 0 0071 #### [facility] [address] [place] [address], [facility] Urea nitrogen [Mass/Vol] 62 mg/dL High 7-25 [facility] Comment on above: Order Comment: No: D o not add to previous draw Performed By: #### 0 0071 #### [facility] [address] [place] [address], [facility] CBC COMPLETE BLOOD COUNTon Erythrocyte distribution width (RBC) [Ratio] 15.8 % High 11.5-15.0 [facility] Comment on above: Order Comment: No: D o not add to previous draw Performed By: #### 5 0608 #### [facility] [address] [place] [address], [facility] Hematocrit (Bld) [Volume fraction] 24.7 % Low 36.0-45.0 [facility] Comment on above: Order Comment: No: D o not add to previous draw Performed By: #### 5 0608 #### [facility] [address] [facility] [address] Hemoglobin (Bld) [Mass/Vol] 7.5 g/dL Low 12.0-15.0 [facility] Comment on above: Order Comment: No: D o not add to previous draw Performed By: #### 5 0608 #### [facility] [address] [facility] [place] [address], [facility] MCH (RBC) [Entitic mass] 26.8 pg Low 27.0-33.0 [facility] Comment on above: Order Comment: No: D o not add to previous draw Performed By: #### 5 0608 #### [facility] [address] MCHC (RBC) [Mass/Vol] 30.4 g/dL Low 32.0-35.0 [facility] Comment on above: Order Comment: No: D o not add to previous draw Performed By: #### 5 0608 #### [facility] [address] [place] [address], [facility] MCV (RBC) [Entitic vol] 88.2 fL Normal 82.0-98.0 [facility] Comment on above: Order Comment: No: D o not add to previous draw Performed By: #### 5 0608 #### [facility] [address] Nucleated RBC/100 WBC (Bld) [Ratio] 0 % Normal 0-0 [facility] Comment on above: Order Comment: No: D o not add to previous draw Performed By: #### 5 0608 #### [facility] [address] [place] [address], [facility] PLAT CNT 260 10*3/uL Normal 150-400 [facility] Comment on above: Order Comment: No: D o not add to previous draw Performed By: #### 5 0608 #### [facility] [address] [place] [address], [facility] RBC (Bld) [#/Vol] 2.80 10*6/uL Low 3.80-5.00 [facility] Comment on above: Order Comment: No: D o not add to previous draw Performed By: #### 5 0608 #### [facility] [address] [facility] [place] [address], [facility] WBC (Bld) [#/Vol] 8.14 10*3/uL Normal 4.00-10.60 [facility] Comment on above: Order Comment: No: D o not add to previous draw Performed By: #### 5 0608 #### [facility] [address] CHEST AND LATERALon 12-18-19 CHEST AND LATERAL [facility] Department of Radiology [address] [place] [phone] == Patient Name: JENIFER HERNANDEZ : 1940 Sex: F Age: Race: NA Pt. Location: OUTP Patient Status: I Ordered Date: 12/17/2018 11:15:00 AM Completed Date: 12/17/2018 01:00 PM Requesting Provider: BEVERLY RBOCK Attending Provider: HERBER ALLEN V Report Copy [...] lungs Electronically signed by:Dori Olson. Transcribed by: [email or web address], User Resident: Electronically Signed by: DORI OLSON @ 12/17/2018 01:43 PM Normal [facility] Comment on above: Order Comment: R/O E ffusion History and Physicalon 12-17 History and Physical MR#: [id number] [facility] Pt. Name: Jenifer Hernandez Admitted: 12/17/2018 Date of : 1940 Attending Physician: Beverly Brock MD Room #: 3CD [id number] Discharge Date: HISTORY AND PHYSICAL CHIEF COMPLAINT: Shortness of breath. HISTORY OF PRESENT ILLNESS: This is an 78-year-old female with past medical history significant for diastolic congestive heart failure, history of coronary artery disease status post remote CABG, history of gastric/duodenal ulcer disease, and history of chronic atrial fibrillation, on Xarelto. The patient was evaluated with her vision therapist recently for increased shortness of breath on simple daily activities like walking few steps from the garage to her home. She was found to be in exacerbation of her diastolic heart failure and her diuretic dosage was increased. She was sent to [facility] for an elective right heart catheterization which [...] for that she was seen by a marquetry worker. She thinks that she had an EGD [...] A/Beverly Brock MD Date Trans: 12/17/2018 12:28 P/sha [id number] Normal [facility] Encounters Encounter Date Encounter Type Care Provider Facility Start: 09-10-2023 End: 09-10-2023 ambulatory [facility] Start: 06-14-2023 End: 06-14-2023 ambulatory [facility] Start: 05-21-2023 End: 05-21-2023 ambulatory SHAIKH KB Not Available Start: 05-06-2023 End: 05-06-2023 ambulatory [facility] Start: 04-25-2023 End: 04-25-2023 ambulatory SHAIKH KB Not Available Start: 01-31-2022 End: 02-01-[address] HERBER ALLEN Facility:[facility] Start: 01-18-2022 End: 01-18-2022 ambulatory PETR LUGO Facility:[facility] Start: 12-21-2021 End: 12-21-2021 ambulatory PETR LUGO Facility:[facility] Start: 11-15-[address] EDU Antonio ty:[facility] Start: 10-18-2021 End: 10-19-[address] EDU ODONNELL Facility:[facility] Start: 08-22-[address] EDU Antonio ty:[facility] Start: 08-18-2021 End: 08-19-2021 ambulatory LOGAN MORAN Facility:[facility] Start: 03-28-2021 End: 03-29-[address] DOCTOR LEGER Facility:[facility] Start: 03-07-2021 End: 03-08-2021 ambulatory LOGAN MORAN Facility:[facility] Start: 01-05-2019 End: 01-14-2019 Evaluation and management of inpatient KENNEDI MARSHALL Facility:[facility] Start: 12-17-2018 End: 12-24-2018 Evaluation and management of inpatient EDU ODONNELL Facility:[facility] Procedures Date Procedure Procedure Detail Performing Clinician Start: 01-12-2019 Buddhism of Cardi ac Rhythm, Single MOSHRIK ABD [...] above: Performed By: #### [id number] #### [facility] [address] [place] [address], [facility] Start: 12-17-2018 MEASURE OF CARDIAC S AMPL \T\ PRESSURE, R HEART, PERC APPROACH HERBER V MOTAVORBEL Start: 12-17-2018 MEASUREMENT OF ARTER IAL FLOW, PULMONARY, PERC APPROACH HERBER V MOUKARBEL Payers Date Payer Category Payer Medicare [id number] 1959 Self-pay 1959 Unknown [id number] 1940 Unknown [id number] 2.16.8 [id number] 1940 Unknown [id number] 2.16.8 [id number] 1938 Unknown [id number] 2.16.84 [id number] 1938 Unknown [id number] 2.16.84 0.1.181492.3.579.2.593 1938 Unknown [id number] 2.16.84 0.1.040250.3.579.2.593 1938 Unknown [id number] 2.16.84 0.1.161668.3.579.2.593 1938 Unknown [id number] 2.16.84 0.1.749911.3.579.2.593 1938 Unknown [id number] 2.16.84 0.1.753892.3.579.2.593 1938 Unknown [id number] 2.16.84 0.1.382046.3.579.2.593 1938 Unknown [id number] 2.16.84 0.1.121785.3.579.2.593 1938 Unknown [id number] 2.16.84 0.1.402880.3.579.2.593 1938 Unknown [id number] 2.16.84 0.1.888893.3.579.2.1259 1938 Unknown [id number] 2.16.84 [id number] Clinical Note 09-10-2023 Note Date & Type Note Facility 09-10-2023 Note Patient: Jenifer lorenz Procedure Information Date/Time: 09/10/23 1300 Procedure: Right heart cath - pc approved with [facility] Location: [facility] SAND TECHNOLOGIST 3 / [facility] (Cath) Providers: Herber Allen MD Clinical information reviewed: Allergies Meds Physical Exam Airway Mallampati: II TM distance: >3 FB Neck ROM: full Cardiovascular Rhythm: regular Rate: normal Dental Pulmonary Abdominal Anesthesia Plan ASA 3 other (Conscious sedation.) Anesthetic plan and risks discussed with patient. Use of blood products discussed with patient who consented to blood products. Additional Equipment Requests [facility] Progress note 06-14-2023 Note Date & Type Note Facility 06-14-2023 Note [place] [facility] - [facility] Subjective Jenifer Hernandez is a 83 y.o. year old female patient being seen for Follow-up (1 month- stress/echo) Patient Active Problem List Diagnosis Chronic atrial fibrillation (CMS/HCC) Chronic diastolic congestive heart failure (CMS/HCC) Coronary artery disease involving yuhaaviatam coronary artery of yuhaaviatam heart without angina pectoris History of coronary [...] is seen in follow up. She is 83-year-old woman with history of coronary disease status [...] respond to it. She was admitted to [facility] with decompensated HF in 05/2018. Update 11/03/2018: [...] is normal (Visually estimated EF 65-70%). Normal right ventricular systolic function. The right ventricle is mildly enlarged. The left atrium is severely enlarged. The right atrium is severely enlarged. Severe tricuspid regurgitation. Doppler studies suggest severely elevated right sided pressures. No pericardial effusion. The echocardiographic picture is suggestive of a restrictive cardiomyopathy. Update 08/22/2021: She is seen in follow-up. She denies chest pain. She has shortness of breath on exert (more content not included)... [facility] Progress note 05-06-2023 Note Date & Type Note Facility 05-06-2023 Note [place] [facility] - [facility] Subjective Jenifer Hernandez is a 82 y.o. [...] heart failure (CMS/HCC) Coronary artery disease involving yuhaaviatam coronary artery of yuhaaviatam heart without angina pectoris History of coronary [...] respond to it. She was admitted to [facility] with decompensated HF in 05/2018. Update 11/03/2018: [...] EF 65-70%). Normal (more content not included)... [facility] Clinical Note 01-18-2022 Note Date & Type [...] ensuring mobility, phacoemulsification was performed in a ybiyysq-phb-qphood-type fashion. After all nuclear material had been [...] the following day for postoperative care. [facility] Clinical Note 01-18-2022 Note Date [...] go forward with her elective procedure. [facility] Clinical Note 12-21-2021 Note Date & Type [...] go forward with her elective procedure. [facility] Clinical Note 12-21-2021 Note Date & Type [...] ensuring mobility, phacoemulsification was performed in a tzdmmar-vyh-hcyseh-type fashion. After all nuclear material had been [...] the following day for postoperative care. [facility] Summary Purpose Family History No Family History Records FoundNo Family History Records FoundNo Family History Records FoundNo Family History Records FoundNo Family History Records Found Advance Directives No Advanced Directives Records FoundNo Advanced Directives Records FoundNo Advanced Directives Records FoundNo Advanced Directives Records FoundNo Advanced Directives Records Found Hospital Course Note MR#: [id number] I [facility] Pt. Name: Jenifer Hernandez Admitted: 12/17/2018 Discharged: [...] (more content not included)... Note MR#: [id number] I [facility] Pt. Name: Jenifer Hernandez Admitted: 01/05/2019 Discharged: 01/14/2019 Date of : 1940 Physician: Amy Head MD DISCHARGE SUMMARY PRIMARY CARE PHYSICIAN: Edu Odonnell. ADMITTING DIAGNOSES: 1. Acute kidney injury on chronic kidney disease. 2. Drug-induced symptomatic severe bradycardia with hemodynamic compromise. DISCHARGE DIAGNOSES: 1. Drug-induced symptomatic severe bradycardia with hemodynamic compromise. 2. 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 Uevxc-mz-cdfhsgi biventricular systolic and diastolic heart failure exacerbation. 4. Severe pulmonary hypertension. 5. Severe tricuspid regurgitation. 6. Bilateral pleural effusion. 7. Chronic atrial fibrillation. 8. Chronic anticoagulation. 9. Iron deficiency normocytic anemia. 10. Physical deconditioning. HOSPITAL COURSE: She presented to the ED with complaints of exertional dizziness and lightheadedness for 2 days with being recently discharge (more content not included)... Note MR#: [id number] [facility] Pt. Name: Margot Hernandezte Surgery Date: 12/19/2018 Room #: 3CD [id number] Date of : 1940 PROCEDURE NOTE ATTENDING: [...] not included)... Procedure Findings Note MR#: [id number] [facility] Pt. Name: Jenifer Hernandez Surgery Date: 12/19/2018 Room #: 3CD [id number] Date of : 1940 PROCEDURE NOTE ATTENDING: [...] and content) DATE CREATED AUTHOR 04/10/2019 [facility] DATE CREATED AUTHOR AUTHOR'S ORGANIZ ATION 05/07/2021 [facility] DATE CREATED AUTHOR AUTHOR'S ORGANIZ ATION 02/07/2022 [facility] DATE CREATED AUTHOR AUTHOR'S ORGANIZ ATION 05/22/2023 [facility] dical [facility] DATE CREATED AUTHOR AUTHOR'S ORGANIZ ATION 09/17/2023 [facility] FOR RECORDS PERTAINING TO PATIENTS WHO [...] BE BASED ON THE PRIMARY CLINICAL RECORDS. [email or web address] provides no warranty or guarantee of the accuracy or completeness of information in this document.
[2023-09-18 14:13] LABS: Anion Gap 12.1; BUN Creatinine Ratio 21.1; Calcium 9.2 mg/dL (8.5-10.1); Carbon Dioxide 29.7 mmol/L (21.0-32.0); Chloride 102 mmol/L (98-107); Estimated GFR (African America 41 (>=60); Estimated GFR (Non-African Ame 34 (>=60); Glucose 149 mg/dL (74-106); Potassium 3.8 mmol/L (3.5-5.1); Sodium 140 mmol/L (136-145)
== END 2023-09-18 13:22 | disposition home or self-care (01) ==
PROVIDERS: PCP Internal Medicine; Visit Provider Internal Medicine Interventional Cardiology
DX: I27.20 Pulmonary hypertension, unspecified (principal); I50.32 Chronic diastolic (congestive) heart failure
CPT/HCPCS: 36415; 80048

== ENCOUNTER 2023-10-28 14:36 | Outpatient (OUT) | payer MEDICARE, OTHER, SELFPAY ==
[2023-10-28 15:43] LABS: Anion Gap 8.1; BUN Creatinine Ratio 26.4; Calcium 9.1 mg/dL (8.5-10.1); Carbon Dioxide 33.6 mmol/L (21.0-32.0); Chloride 100 mmol/L (98-107); Estimated GFR (African America 37 (>=60); Estimated GFR (Non-African Ame 31 (>=60); Glucose 93 mg/dL (74-106); Potassium 3.7 mmol/L (3.5-5.1); Sodium 138 mmol/L (136-145)
== END 2023-10-28 14:37 | disposition home or self-care (01) ==
LOC: LAB 14:37
PROVIDERS: PCP Internal Medicine; Visit Provider Internal Medicine Interventional Cardiology
DX: I50.32 Chronic diastolic (congestive) heart failure (principal)
CPT/HCPCS: 36415; 80048

== ENCOUNTER 2023-11-29 12:36 | Outpatient (OUT) | payer MEDICARE, OTHER, SELFPAY ==
--- NOTE | 2023-11-29 12:30 | CA_ITS ---
Patient Name: RICK HERNANDEZ MR#: [id number] : 1940 Exam Date: 11/29/2023 Ordering Doctor: DR LEO FLORES M.D. ECHOCARDIOGRAM REPORT PROCEDURE: CA ECHO DOPPLER COMPLETE INDICATIONS: Chronic diastolic congestive heart failure, pulmonary HTN, CABG COMPARISON: None. DESCRIPTION: COMPLETE ECHOCARDIOGRAM Real-time transthoracic echocardiography with 2D, M-mode, spectral and color flow Doppler performed. QUALITY: Technical quality was good. LEFT VENTRICLE: Normal chamber size. Proximal septal hypertrophy (sigmoid septum). Systolic function is normal. LV EF: Normal left ventricular ejection fraction, (>55%). DIASTOLIC: ATRIAL SEPTUM: Visually appears intact. LEFT ATRIUM: Severe dilatation. RIGHT ATRIUM: Severe dilatation. RIGHT VENTRICLE: Moderate dilatation. Normal systolic function. TRICUSPID VALVE: Normal mobility and thickness. No stenosis with moderate regurgitation. Doppler studies reveal moderately (45-60) elevated right sided pressures. RVSP 56 mmHg MITRAL VALVE: Mildly thickened with normal mobility. No evidence of mitral valve stenosis. Mild mitral annular calcification. Mild to moderate mitral regurgitation. AORTIC VALVE: Normal trileaflet appearance. Moderately calcified aortic valve. Mildly diminished mobility. No evidence of aortic valve stenosis. Mild aortic regurgitation. AORTIC ROOT: Normal diameter and appearance. Ascending aorta is normal in size. PULMONIC VALVE: Normal thickness and mobility. No stenosis. Mild regurgitation. PERICARDIUM: No evidence of pericardial effusion. IVC: IVC is dilated (2.4 cm) with no collapse. PLEURA: CONCLUSION: 1. Normal left ventricular size and systolic function. LVEF is 55 to 60%. 2. Moderately dilated right ventricle with normal systolic function. 3. Severe biatrial dilatation. 4. Mild to moderate mitral regurgitation. 5. Moderate tricuspid regurgitation. 6. Mild aortic and pulmonic regurgitation. 7. Moderately elevated right-sided pressures. RVSP is 56 mmHg. 8. No pericardial effusion. Adult Echocardiography Procedure Report Left Ventricle LVEDD (3.7 - 5.6 cm): 4.22 cm LVESD (2.2 - 4.0 cm): 3.00 cm LVIVS thickness (0.6 - 1.2 cm): 1.28 cm LVPW thickness (0.5 - 1.0 cm): 0.92 cm e': 0.15 m/s E - e': 7.08 LVOT Max Gradient: 2.19 mm[Hg] LVOT Area (cm2): 0.74 m/s Peak Velocity (LVOT): 0.74 m/s Mean Velocity (LVOT): 0.53 m/s LVOT Diameter 1.69 cm Left Atrium LA Volume Index (2D A2C): 79.43 ml/m2 Left Atrium Systolic Dimension: 4.78 cm Mitral Valve MV E to A Ratio: 4.08 Mitral Valve A-Wave Peak Velocity: 0.26 m/s Mitral Valve E-Wave Peak Velocity: 1.05 m/s Right Ventricle Aorta AO Root Diam: 2.87 cm Ascending Ao Diam: 2.76 cm Aortic Valve AoV Area (Peak Robin): 1.10 cm2, 1.10 cm2 AoV Area (VTI): 1.43 cm2, 1.43 cm2 Peak Velocity(Antegrade Flow): 1.50 m/s Peak Gradient(Antegrade Flow): 9.03 mm[Hg] Mean Velocity(Antegrade Flow): 0.91 m/s Mean Gradient(Antegrade Flow): 4.11 mm[Hg] Velocity Time Integral: 26.45 cm Tricuspid Valve Peak Velocity (Regurgitant Flow): 3.06 m/s, 3.21 m/s Pulmonic Valve Mean Gradient: 1.68 mm[Hg] Mean Velocity: 0.59 m/s Peak Velocity: 0.99 m/s, 0.92 m/s Peak Gradient: 3.41 mm[Hg], 3.89 mm[Hg] Right Atrium Right Atrium Systolic Pressure: 187.61 ml, 187.61 ml Dictated by: Leo Flores M.D. on 11/29/2023 at 18:14 Approved by: Leo Flores M.D. on 11/29/2023 at 18:18
--- OUTSIDE RECORDS SUMMARY | 2023-11-29 12:41 | XMS_ITS | CCD ---
Author Organization [facility] [employer] Care Team Providers Care Cementer Helper Name Role Phone BLAS EDU Referring Unavailable HOUSE, EDU Primary Care Unavailable ERASTO CANALES Admitting Unavailable AJ, FLORENTINO Attending Unavailable [place] Procedure Practitioner Unavailab le UNKNOWN, PROVIDER Surgeon Unavailable [place] Procedure Practitioner Unavailab le NAWRSHERRY PERALTA Surgeon Unavailable [place] Procedure Practitioner Unavailab le AJ, FLORENTINO Surgeon Unavailable KENNEDI MARSHALL Admitting Unavailable BLAS, EDU Primary Care Unavailable SELF, REFERRED Referring Unavailable MEGHAN HEAD Attending Cinthiava ilable [place] Procedure Practitioner Unavailab le KEVON COLON Surgeon [...] Unavailable HOUSE, DR SALAMANCA Primary Care Unavailable ZAHLMIGUEL, PETR Consulting Unavailable ZAPETR GRAY Admitting Unavailable HOUSE, DR SALAMANCA Primary Care Unavailable PETR LUGO Attending Unavailable HOUSE, DR SALAMANCA Primary Care [...] Unavailable HOUSE, DR SALAMANCA Primary Care Unavailable HERBER ALLEN Attending Unavailable HERBER ALLEN Attending Unavailable HERBER ALLEN Admitting Unavailable HERBER ALLEN Attending Unavailable HERBER ALLEN Referring Unavailable HERBER ALLEN Attending Unavailable SHAIKH QUILES Attending Unavailable SHAIKH QUILES Attending Unavailable SANDOVALSHELL BARGER Attending Unavailabl e Allergies Allergy Classification Reported Allergen(s) Allergy Type Date of Onset Reaction(s) Facility (3 sources) Furosemide Drug Allergy 12-17-2018 [facility] Repository (2 sources) Penicillins; Translations: [PENICILLINS] Drug allergy (disorder) 12-29-2008 [facility] Repository (3 sources) Sulfonamides (Antibiotic); Translations: [SULFA (SULFONAMIDE ANTIBIOTICS)] Drug allergy (disorder) 12-17-2018 [facility] Repository (1 source) Penicillin Drug Allergy [facility] Repository (1 source) Furosemide; Translations: [FUROSEMIDE] Drug Allergy 02-01-2022 [facility] Repository Problems Active Problems Problem Classification Problem [...] disease (3 sources) Atherosclerotic heart disease of [place] coronary artery without angina pectoris; Translations: [Atherosclerotic heart disease of [place] coronary artery with other forms of angina [...] Value Interpretation Reference Range Facility Office Visiton 09-25-2023 Follow-up visit [id number] Jenifer Hernandez 1940 F Date Provider Department Center 09/25/2023 HERBER BERMUDEZ LEIGHA Mcgrath Family History Problem Relation Age of Onset Other Father Stroke Brother Family Status - Relation Status Age at Father Brother Level of Service:00331 [place] OFFICE/OUTPATIENT ESTABLISHED MOD MDM 30 MIN Normal [facility] Rebeca 09-10-2023 ANES ---- -------- Attestation signed by Dwight Hyman MD at 09/29/2023 6:40 PM GC: I saw this patient. I personally performed the critical/burton portions that determines the level of service. I was directly involved in the management and treatment plan of the patient. I reviewed fellow Dr. Valverde's note and agree with the documentation -------- Patient: Jenifer Hernandez Procedure Information Date/Time: 09/10/23 1300 Procedure: Right heart cath - pc approved with ADWOA Location: [facility] CHALK TESTER 3 / [facility] HV VASCULAR LAB (Cath) Providers: Herber Allen MD Clinical information reviewed: [facility] Meds Physical Exam Airway Mallampati: II TM distance: >3 FB Neck ROM: full Cardiovascular Rhythm: regular Rate: normal (+) murmur Dental Pulmonary Breath sounds clear to auscultation Abdominal Abdomen: soft Bowel sounds: normal Anesthesia Plan ASA 3 other (Conscious sedation) Anesthetic plan and risks discussed with patient. Use of blood products discussed with patient who consented to blood products. Plan discussed with attending. Additional Equipment Requests Normal [facility] BASIC METABOLIC PANELon 07- Anion gap [Moles/Vol] 12 mmol/L Normal 7-20 [facility] Comment on above: Performed By: #### L [id number] ####[facility] (BEAKER)[address] [place] [address] Calcium [Mass/Vol] 9.3 mg/dL Normal 8.6-10.3 [facility] Comment on above: Performed By: #### L [id number] ####[facility] (BEAKER)[address] [place] [address] Chloride [Moles/Vol] 100 mmol/L Normal 98-107 [facility] Comment on above: Performed By: #### L [id number] ####[facility] (BEAKER)[address] [address] CO2 [Moles/Vol] 30 mmol/L Normal 21-31 [facility] Comment on above: Performed By: #### L [id number] ####[facility] ([facility])[address] [place] [address] Creatinine [Mass/Vol] 1.30 mg/dL High 0.60-1.20 [facility] Comment on above: Performed By: #### L [id number] ####[facility] ([facility])[address] [place] [address] GLOMERULAR FILTRATION RATE ML/MIN/1.73 SQ M.PREDICTED 40.3 mL/min/1.73m*2 Low >60.0 [facility] Comment on above: Result Comment: [facility]???s estimated glomerular filtration rate (eGFR) will no [...] of individuals. Performed By: #### L [id number] ####[facility] ([facility])[address] [place] [address] Glucose [Mass/Vol] 130 mg/dL High 70-100 [facility] Comment on above: Performed By: #### L [id number] ####[facility] ([facility])[address] [place] [address] Potassium [Moles/Vol] 3.4 mmol/L Low 3.5-5.1 [facility] Comment on above: Performed By: #### L [id number] ####[facility] ([facility])[address] [place] [address] Sodium [Moles/Vol] 139 mmol/L Normal 136-145 [facility] Comment on above: Performed By: #### L [id number] ####[facility] ([facility])[address] [place] [address] Urea nitrogen [Mass/Vol] 34 mg/dL High 7-25 [facility] Comment on above: Performed By: #### L [id number] ####[facility] ([facility])[address] [place] [address] UREA NITROGEN/CREATININE (MASS RATIO) IN SER/PLAS 26.2 Normal [facility] Comment on above: Performed By: #### L [id number] ####[facility] ([facility])[address] [place] [address] CBC WITH AUTO DIFFERENTIALon 09-10-2023 Basophils (Bld) [#/Vol] 0.04 10*3/uL Normal 0.00-0.20 [facility] Comment on above: Performed By: #### L [id number] ####[facility] ([facility])[address] [place] [address] Basophils/100 WBC (Bld) 0.6 % Normal 0.0-1.0 [facility] Comment on above: Performed By: #### L [id number] ####[facility] ([facility] [place] [address] Eosinophils (Bld) [#/Vol] 0.15 10*3/uL Normal 0.00-0.50 [facility] Comment on above: Performed By: #### L [id number] ####[facility] ([facility])[address] [place] [address] Eosinophils/100 WBC (Bld) 2.2 % Normal 0.0-6.0 [facility] Comment on above: Performed By: #### L [id number] ####[facility] ([facility])[address] [place] [address] Erythrocyte distribution width (RBC) [Ratio] 14.4 % Normal 11.5-15.0 [facility] Comment on above: Performed By: #### L [id number] ####[facility] ([facility] [place] [address] ERYTHROCYTE MEAN CORPUSCULAR HEMOGLOBIN CONCENTRATION (G/DL) BY AUTOMATED 32.7 g/dL Normal 32.0-35.0 [facility] Comment on above: Performed By: #### L [id number] ####[facility] (BEAKER)[address] [place] [address] Hematocrit (Bld) [Volume fraction] 37.6 % Normal 36.0-48.0 [facility] Comment on above: Performed By: #### L [id number] ####[facility] ([facility] [place] [address] Hemoglobin (Bld) [Mass/Vol] 12.3 g/dL Normal 12.0-15.0 [facility] Comment on above: Performed By: #### L [id number] ####[facility] ([facility])[address] [place] [address] Immature granulocytes (Bld) [#/Vol] 0.02 10*3/uL Normal 0.00-0.20 [facility] Comment on above: Performed By: #### L [id number] ####[facility] ([facility])[address] [place] [address] Immature granulocytes/100 WBC (Bld) 0.3 % Normal 0.0-1.0 [facility] Comment on above: Performed By: #### L [id number] ####[facility] (BEAKER)[address] [place] [address] Lymphocytes (Bld) [#/Vol] 1.10 10*3/uL Low 1.20-4.00 [facility] Comment on above: Performed By: #### L [id number] ####[facility] (BEAKER)[address] [place] [address] Lymphocytes/100 WBC (Bld) 16.3 % Low 20.0-45.0 [facility] Comment on above: Performed By: #### L [id number] ####[facility] (BEAKER)[address] [place] [address] MCH (RBC) [Entitic mass] 32.6 pg Normal 27.0-33.0 [facility] Comment on above: Performed By: #### L [id number] ####[facility] (BEAKER)[address] [place] [address] MCV (RBC) [Entitic vol] 99.7 fL High 82.0-98.0 [facility] Comment on above: Performed By: #### L [id number] ####[facility] (BEAKER)[address] [place] [address] Monocytes (Bld) [#/Vol] 0.92 10*3/uL Normal 0.10-1.00 [facility] Comment on above: Performed By: #### L [id number] ####[facility] (BEAKER)[address] [place] [address] Monocytes/100 WBC (Bld) 13.6 % High 5.0-12.0 [facility] Comment on above: Performed By: #### L [id number] ####[facility] (BEAKER)[address] [place] [address] Neutrophils (Bld) [#/Vol] 4.53 10*3/uL Normal 1.60-7.60 [facility] Comment on above: Performed By: #### L [id number] ####[facility] (BEAKER)[address] [place] [address] Neutrophils/100 WBC (Bld) 67.0 % Normal 40.0-72.0 [facility] Comment on above: Performed By: #### L [id number] ####[facility] (BEAKER)[address] [place] [address] NRBC (PER 100 WBCS) BY AUTOMATED COUNT 0.0 % Normal 0 [facility] Comment on above: Performed By: #### L [id number] ####[facility] (BEAKER)[address] [place] [address] PLATELETS (10*3/UL) IN BLOOD AUTOMATED COUNT 163 10*3/uL Normal 150-400 [facility] Comment on above: Performed By: #### L [id number] ####[facility] (BEAKER)[address] [place] [address] RBC (Bld) [#/Vol] 3.77 10*6/uL Low 3.80-5.00 [facility] Comment on above: Performed By: #### L [id number] ####[facility] (BEAKER)[address] [place] [address] WBC (Bld) [#/Vol] 6.76 10*3/uL Normal 4.00-10.60 [facility] Comment on above: Performed By: #### L [id number] ####[facility] (BEAKER)[address] [place] [address] HPon 09-10-2023 HP History Of Present Illness [...] 3 09/09/2023 ergocalciferol (Vitamin D-2) 1.25 MG (61802 Units) capsule Vitamin D2 1,250 mcg (50,000 [...] (more content not included)... Normal [facility] HP ---- -------- Attestation signed by Dwight Hyman MD at 09/29/2023 6:39 PM GC: I saw this patient. I personally performed the critical/burton portions that determines the level of service. I was directly involved in the management and treatment plan of the patient. I reviewed fellow Dr. Valverde 's note and agree with the documentation -------- History Of Present Illness Jenifer Hernandez is [...] 3 09/09/2023 ergocalciferol (Vitamin D-2) 1.25 MG (76750 Units) capsule Vitamin D2 1,250 mcg (50,000 [...] More than a month Review of Systems ROS is negative except as per above. Physical Exam Cardiovascular: Rate and Rhythm: Normal rate. Rhythm irregularly irregular. Pulses: Radial pulses are 2+ on the right side and 2+ on the left side. Heart sounds: Murmur heard. Systolic (LLSB) murmur is present with a grade of 2/6. No friction rub. No gallop. Last Recorded Vitals Blood pressure 126/74, pulse 66, resp. rate 13, SpO2 100 %. Relevant Results Stress test 05/22/2023: No [...] valve regurgitation. Mild to moderate pulmonic regurgitation. Assessment/Plan Coronary artery disease of [place] artery of [place] heart with stable angina pectoris (CMS/HCC) Chronic diastolic congestive heart failure (CMS/HCC) Shortness of breath Permanent atrial fibrillation (CMS/HCC) Stage 3b chronic kidney disease (CMS/HCC) Pulmonary hypertension (CMS/HCC) Severe TR Moderate MR Mild AR - Plan: RHC and ADWOA Primary hypertension - continue medical therapy History of coronary artery bypass surgery s/p CABG - continue medical therapy [facility] NURSNOTEon 09-10-2023 NURSNOTE RN educated pt on d/ c instructions. RN encouraged pt to voice any questions or concerns. Pt verbalizes no questions or concerns at this time. [facility] ALISON Spoke with Dr. Brii macias and john to discharge pt at 1600. [facility] Office Visiton 06-14-2023 Follow-up visit [id number] Jenifer Hernandez 1940 F Date Provider Department Center 06/14/2023 HERBER BERMUDEZ [facility] Family History Problem Relation Age of Onset Other Father Stroke Brother Family Status - Relation Status Age at Father Brother Level of Service:63468 [place] OFFICE/OUTPATIENT ESTABLISHED HIGH MDM 40 MIN Reason for Visit and Comments: Follow-up [502446] - 1 month- stress/echo Normal [facility] Office Visiton 05-06-2023 Follow-up visit [id number] Jenifer Hernandez 1940 F Date Provider Department Center 05/06/2023 HERBER BERMUDEZ Saú[facility] Ram[facility] Family History Problem Relation Age of Onset Other Father Stroke Brother Family Status - Relation Status Age at Father Brother Level of Service:66305 [place] OFFICE/OUTPATIENT ESTABLISHED MOD MDM 30 MIN Normal [facility] PROF CHEM 8 (BAS METB)on Anion gap [Moles/Vol] 13.7 mmol/L Normal [facility] Comment on above: Performed By: #### B MP #### [facility] [address] [address] [address] Vega Sorensen Calcium [Mass/Vol] 9.2 mg/dL Normal 8.5-10.1 [facility] Comment on above: Performed By: #### B MP #### [facility] [address] [address] [address] Vega Sorensen Chloride [Moles/Vol] 100 mmol/L Normal 98-107 [facility] Comment on above: Performed By: #### B MP #### [facility] [address] [address] [address] Vega Sorensen CO2 [Moles/Vol] 30.2 mmol/L Normal 21.0-32.0 [facility] Comment on above: Performed By: #### B MP #### [facility] [address] [address] [address] Vega Sorensen Creatinine [Mass/Vol] 1.69 mg/dL Critically high 0.55-1.02 [facility] Comment on above: Performed By: #### B MP #### [facility] [address] [address] [address] Vega Sorensen EGFR-AF GREENLANDIC 35 mL/min/1.73m2 Critically low >=60 [facility] Comment on above: Performed By: #### B MP #### [facility] [address] [address] [address] Vega Sorensen EGFR-NON AF GREENLANDIC 29 mL/min/1.73m2 Critically low >=60 [facility] Comment on above: Performed By: #### B MP #### [facility] [address] [address] [address] Vega Sorensen Glucose [Mass/Vol] 162 mg/dL Critically high 74-106 [facility] Comment on above: Performed By: #### B MP #### [facility] [address] [address] [address] Vega Sorensen Potassium [Moles/Vol] 3.9 mmol/L Normal 3.5-5.1 [facility] Comment on above: Performed By: #### B MP #### [facility] [address] [address] [address] Vega Sorensen Sodium [Moles/Vol] 140 mmol/L Normal 136-145 [facility] Comment on above: Performed By: #### B MP #### [facility] [address] [address] [address] Vgea Sorensen Urea nitrogen [Mass/Vol] 36.0 mg/dL Critically high 7.0-18.0 [facility] Comment on above: Performed By: #### B MP #### [facility] [address] [address] [address] Vega Sorensen Urea nitrogen/Creatinine [Mass ratio] 21.3 mg/mg Normal [facility] Comment on above: Performed By: #### B MP #### [facility] [address] [address] [address] Vega Sorensen PROF CHEM 8 (BAS METB)on Anion gap [Moles/Vol] 14.6 mmol/L Normal [facility] Comment on above: Performed By: #### B MP ####[facility] [address] [address]Dr. Vega Sorensen Calcium [Mass/Vol] 9.1 mg/dL Normal 8.5-10.1 [facility] Comment on above: Performed By: #### B MP ####[facility] [address] [address]Dr. Vega Sorensen Chloride [Moles/Vol] 99 mmol/L Normal 98-107 [facility] Comment on above: Performed By: #### B MP ####[facility] [address] [place], [place] [address]Dr. Vega Sorensen CO2 [Moles/Vol] 28.8 mmol/L Normal 21.0-32.0 [facility] Comment on above: Performed By: #### B MP ####[facility] [address] [place], [place] [address]Dr. Vega Sorensen Creatinine [Mass/Vol] 1.63 mg/dL Critically high 0.55-1.02 [facility] Comment on above: Performed By: #### B MP ####[facility] [address] [place], [place] [address]Dr. Vega Sorensen EGFR-AF GREENLANDIC 37 mL/min/1.73m2 Critically low >=60 [facility] Comment on above: Performed By: #### B MP ####[facility] [address] [place], [place] [address]Dr. Vega Sorensen EGFR-NON AF GREENLANDIC 30 mL/min/1.73m2 Critically low >=60 [facility] Comment on above: Performed By: #### B MP ####[facility] [address] [place], [place] [address]Dr. Vega Sorensen Glucose [Mass/Vol] 143 mg/dL Critically high 74-106 [facility] Comment on above: Performed By: #### B MP ####[facility] [address] [place], [place] [address]Dr. Vega Sorensen Potassium [Moles/Vol] 3.4 mmol/L Critically low 3.5-5.1 [facility] Comment on above: Performed By: #### B MP ####[facility] [address] [address]DrDanny Sorensen Sodium [Moles/Vol] 139 mmol/L Normal 136-145 [facility] Comment on above: Performed By: #### B MP ####[facility] [address] [address]Dr. Vega Sorensen Urea nitrogen [Mass/Vol] 38.0 mg/dL Critically high 7.0-18.0 [facility] Comment on above: Performed By: #### B MP ####[facility] [address] [address]Dr. Vega Sorensen Urea nitrogen/Creatinine [Mass ratio] 23.3 mg/mg Normal [facility] Comment on above: Performed By: #### B MP ####[facility] [address] [address]Dr. Vega Sorensen BNPon 08-18-2021 Natriuretic peptide B (Bld) [Mass/Vol] 5150.0 pg/mL Critically high <=1,800.0 [facility] Comment on above: Performed By: #### B MP, BNP #### [facility] [address] [place] [address] Dr. Vega Sorensen PROF CHEM 8 (BAS METB)on Anion gap [Moles/Vol] 12.9 mmol/L Normal [facility] Comment on above: Performed By: #### B MP, BNP #### [facility] [address] [place] [address] Dr. Vega Sorensen Calcium [Mass/Vol] 9.0 mg/dL Normal 8.5-10.1 [facility] Comment on above: Performed By: #### B MP, BNP #### [facility] [address] [place] [address] Dr. Vega Sorensen Chloride [Moles/Vol] 102 mmol/L Normal 98-107 [facility] Comment on above: Performed By: #### B MP, BNP #### [facility] [address] [place] [address] Dr. Vega Sorensen CO2 [Moles/Vol] 30.2 mmol/L Normal 21.0-32.0 [facility] Comment on above: Performed By: #### B MP, BNP #### [facility] [address] [address] [address] Vega Sorensen Creatinine [Mass/Vol] 1.90 mg/dL Critically high 0.55-1.02 [facility] Comment on above: Performed By: #### B MP, BNP #### [facility] [address] [address] [address] Vega Sorensen EGFR-AF GRE[place] 31 mL/min/1.73m2 Critically low >=60 [facility] Comment on above: Performed By: #### B MP, BNP #### [facility] [address] [place] [address] Dr. Vega Sorensen EGFR-NON AF GREENLAND[place] 25 mL/min/1.73m2 Critically low >=60 [facility] Comment on above: Performed By: #### B MP, BNP #### [facility] [address] [place] [address] Dr. Vega Sorensen Glucose [Mass/Vol] 121 mg/dL Critically high 74-106 [facility] Comment on above: Performed By: #### B MP, BNP #### [facility] [address] [place] [address] Dr. Vega Sorensen Potassium [Moles/Vol] 4.1 mmol/L Normal 3.5-5.1 [facility] Comment on above: Performed By: #### B MP, BNP #### [facility] [address] [place] [address] Dr. Vega Sorensen Sodium [Moles/Vol] 141 mmol/L Normal 136-145 [facility] Comment on above: Performed By: #### B MP, BNP #### [facility] [address] [place] [address] Dr. Vega Sorensen Urea nitrogen [Mass/Vol] 34.0 mg/dL Critically high 7.0-18.0 [facility] Comment on above: Performed By: #### B MP, BNP #### [facility] [address] [address] [address] Vega Sorensen Urea nitrogen/Creatinine [Mass ratio] 17.9 mg/mg Normal [facility] Comment on above: Performed By: #### B MP, BNP #### [facility] [address] [address] [address] Vega Castaneda 03-30-2021 L ---- Specimen: [id number] Received: 03/30/21 Status: JORGE Boswellgale Num: [id number] Spec Type: Surgical Subm Dr: Chad Yeboah MD Tissues: A Soft Tissue/Surgical Margin-Other than Tumor,Mass,Lip or Rosita (ANTERIOR ORBIT Procedures: HE Stain, Gross/Micro L4 Patient Age/Sex Location Account Attending Physician Jenifer Hernandez 80/F GHAZAL [id number] Chad Yeboah MD SPEC NUM: [id number] RECD: 03/30/21 STATUS: JORGE SPAULDING NUM: [id number] RACHAEL: 03/30/[address] [facility] [address]: Chad Yeboah MD ENTERED: 03/30/[address] [facility] DR: SPEC TYPE: Surgical DEPT: S ORDERED: [...] Type of Fixative: 10% Neutral Buffered Formalin (TAMMI/YJ) Specimen: [id number] Received: 03/30/21 Status: JORGE Spaulding Num: [id number] Spec Type: Surgical Subm Dr: Chad Yeboah MD Tissues: A Soft Tissue/Surgical Margin-Other than Tumor,Mass,Lip or Rosita (ANTERIOR ORBIT Procedures: HE Stain, Gross/Micro L4 Patient: Jenifer Hernandez [id number] (Continued) Specimen: [id number] Received: 03/30/21 (Continued) Signed (signature on file) Mili Peguero MD 03/31/21 1648 Specimen: [id number] Received: 03/30/21 Status: JORGE Spaulding Num: [id number] Spec Type: Surgical Subm Dr: Chad Yeboah MD Tissues: A Soft Tissue/Surgical Margin-Other than Tumor,Mass,Lip or Rosita (ANTERIOR ORBIT Procedures: HE Stain, Gross/Micro L4 Patient: Jenifer Hernandez [id number] (Continued) Specimen: [id number] Received: 03/30/21 (Continued) Microscopic [...] characteristics were determined by the [facility] of [facility]. Immunohistochemistry assays have not been validated on decalcified tissue. Results should be interpreted with caution given the possibility of false negative results on decalcified specimens. They have not been cleared by the [place] Food and Drug Administration. The FDA has determined that such clearance or approval is not necessary. CPT Codes 00540, 91472, 21610, 07774 Specimen: [id number] Received: 03/30/21 Status: JORGE Spaulding Num: [id number] Spec Type: Surgical Subm Dr: Chad Yeboah MD Tissues: A Soft Tissue/Surgical Margin-Other than Tumor,Mass,Lip or Rosita (ANTERIOR ORBIT Procedures: HE Stain, Gross/Micro L4 Patient: Jenifer Hernandez [id number] (Continued) (more content not included)... Normal [facility] CBC AUTO DIFFon 03-28-2021 BASO # 0.0 103/ul Normal 0.0-0.1 [facility] Comment on above: Performed By: #### C BC #### [facility] [address] [address] [address] Vega Sorensen Basophils/100 WBC (Bld) 0.5 % Normal 0.2-2.0 [facility] Comment on above: Performed By: #### C BC #### [facility] [address] [address] [address] Vega Sorensen EO # 0.1 103/ul Normal 0.0-0.7 [facility] Comment on above: Performed By: #### C BC #### [facility] [address] [address] [address] Vega Sorensen Eosinophils/100 WBC (Bld) 1.5 % Normal 0.9-7.0 [facility] Comment on above: Performed By: #### C BC #### [facility] [address] [address] [address] Vega Sorensen Erythrocyte distribution width (RBC) [Ratio] 13.7 % Normal 11.0-15.0 [facility] Comment on above: Performed By: #### C BC #### [facility] [address] [place] [address] Dr. Vega Sorensen Hematocrit (Bld) [Volume fraction] 38.1 % Normal 36.0-48.0 [facility] Comment on above: Performed By: #### C BC #### [facility] [address] [place] [address] Dr. Vega Sorensen Hemoglobin (Bld) [Mass/Vol] 12.5 g/dL Normal 12.0-16.0 [facility] Comment on above: Performed By: #### C BC #### [facility] [address] [place] [address] Dr. Vega Sorensen IG # 0.03 10e3/ul Normal 0.00-0.03 [facility] Comment on above: Performed By: #### C BC #### [facility] [address] [place] [address] Dr. Vega Sorensen IG % 0.4 % Normal 0.0-0.5 [facility] Comment on above: Performed By: #### C BC #### [facility] [address] [place] [address] Dr. Vega Sorensen LYMPH # 1.4 103/ul Normal 1.2-3.8 [facility] Comment on above: Performed By: #### C BC #### [facility] [address] [place] [address] Dr. Vega Sorensen Lymphocytes/100 WBC (Bld) 18.7 % Critically low 20.5-60.0 [facility] Comment on above: Performed By: #### C BC #### [facility] [address] [place] [address] Dr. Vega Sorensen MANUAL DIFF REQ NO Normal [facility] Comment on above: Performed By: #### C BC #### [facility] [address] [place] [address] Dr. Vega Sorensen MCH (RBC) [Entitic mass] 34.0 pg Normal 26.7-34.0 [facility] Comment on above: Performed By: #### C BC #### [facility] [address] [place] [address] Dr. Vega Sorensen MCHC (RBC) [Mass/Vol] 32.8 g/dL Normal 29.9-35.2 [facility] Comment on above: Performed By: #### C BC #### [facility] [address] [address] [address] Vega Sorensen MCV (RBC) [Entitic vol] 103.5 fL Critically high 81.0-99.0 [facility] Comment on above: Performed By: #### C BC #### [facility] [address] [place] [address] Dr. Vega Sorensen MONO # 1.0 103/ul Critically high 0.3-0.8 [facility] Comment on above: Performed By: #### C BC #### [facility] [address] [place] [address] Dr. Vega Sorensen Monocytes/100 WBC (Bld) 12.8 % Critically high 1.7-12.0 [facility] Comment on above: Performed By: #### C BC #### [facility] [address] [place] [address] Dr. Vega Sorensen NEUT # 5.0 103/ul Normal 1.4-6.5 [facility] Comment on above: Performed By: #### C BC #### [facility] [address] [place] [address] Dr. Vega Sorensen Neutrophils/100 WBC (Bld) 66.1 % Normal 43.0-75.0 [facility] Comment on above: Performed By: #### C BC #### [facility] [address] [place] [address] Dr. Vega Sorensen Platelet mean volume (Bld) [Entitic vol] 9.2 fL Critically low 9.5-13.5 [facility] Comment on above: Performed By: #### C BC #### [facility] [address] [place] [address] Dr. Vega Sorensen PLT 180 103/ul Normal 150-450 [facility] Comment on above: Performed By: #### C BC #### [facility] [address] [place] [address] Dr. Vega Sorensen RBC 3.68 106/ul Critically low 4.20-5.40 [facility] Comment on above: Performed By: #### C BC #### [facility] [address] [place] [address] Dr. Vega Sorensen WBC 7.5 103/ul Normal 4.0-11.0 [facility] Comment on above: Performed By: #### C BC #### [facility] [address] [place] [address] Dr. Vega Sorensen BNPon 03-07-2021 Natriuretic peptide B (Bld) [Mass/Vol] 2297.0 pg/mL Critically high <=1,800.0 [facility] Comment on above: Performed By: #### B MP, BNP #### [facility] [address] [place] [address] Dr. Vega Sorensen PROF CHEM 8 (BAS METB)on Anion gap [Moles/Vol] 10.0 mmol/L Normal [facility] Comment on above: Performed By: #### B MP, BNP #### [facility] [address] [place] [address] Dr. Vega Sorensen Calcium [Mass/Vol] 9.1 mg/dL Normal 8.4-10.2 [facility] Comment on above: Performed By: #### B MP, BNP #### [facility] [address] [place] [address] Dr. Vega Sorensen Chloride [Moles/Vol] 101 mmol/L Normal 98-107 [facility] Comment on above: Performed By: #### B MP, BNP #### [facility] [address] [place] [address] Dr. Vega Sorensen CO2 [Moles/Vol] 31.8 mmol/L Critically high 22.0-30.0 [facility] Comment on above: Performed By: #### B MP, BNP #### [facility] [address] [place] [address] Dr. Vega Sorensen Creatinine [Mass/Vol] 1.70 mg/dL Critically high 0.52-1.04 [facility] Comment on above: Performed By: #### B MP, BNP #### [facility] [address] [address] [address] Vega Sorensen EGFR-AF GREENLANDIC 35 mL/min/1.73m2 Critically low >=60 [facility] Comment on above: Performed By: #### B MP, BNP #### [facility] [address] [address] [address] Vega Sorensen EGFR-NON AF [place]IC 29 mL/min/1.73m2 Critically low >=60 [facility] Comment on above: Performed By: #### B MP, BNP #### [facility] [address] [address] [address] Vega Sorensen Glucose [Mass/Vol] 160 mg/dL Critically high 74-106 [facility] Comment on above: Performed By: #### B MP, BNP #### [facility] [address] [address] [address] Vega Sorensen Potassium [Moles/Vol] 3.8 mmol/L Normal 3.4-5.0 [facility] Comment on above: Performed By: #### B MP, BNP #### [facility] [address] [address] [address] Vega Sorensen Sodium [Moles/Vol] 139 mmol/L Normal 137-145 [facility] Comment on above: Performed By: #### B MP, BNP #### [facility] [address] [address] [address] Vega Sorensen Urea nitrogen [Mass/Vol] 36.0 mg/dL Critically high 7.0-17.0 [facility] Comment on above: Performed By: #### B MP, BNP #### [facility] [address] [address] [address] Vega Sorensen Urea nitrogen/Creatinine [Mass ratio] 21.2 mg/mg Normal [facility] Comment on above: Performed By: #### B MP, BNP #### [facility] [address] [address] [address] Vega Sorensen BASIC METABOLIC PANELon 2 Calcium [Mass/Vol] 8.7 mg/dL Normal 8.6-10.3 [facility] Comment on above: Order Comment: No: D o not add to previous draw Performed By: #### 0 0071, 03423, 51609, 73863 #### [facility] [address] [place] [address], [place] Chloride [Moles/Vol] 95 mmol/L Low 98-107 [facility] Comment on above: Order Comment: No: D o not add to previous draw Performed By: #### 0 0071, 74023, 80675, 59033 #### [facility] [address] [place] [address], [place] CO2 [Moles/Vol] 33 mmol/L High 21-31 [facility] Comment on above: Order Comment: No: D o not add to previous draw Performed By: #### 0 0071, 32698, 47961, 56688 #### [facility] [address] [place] [address], [place] Creatinine [Mass/Vol] 1.21 mg/dL High 0.60-1.20 [facility] Comment on above: Order Comment: No: D o not add to previous draw Performed By: #### 0 0071, 90156, 29760, 13687 #### [facility] [address] [place] [address], [place] GFR/1.73 sq M predicted among blacks MDRD (S/P/Bld) [Vol rate/Area] 52 ml/min/1.73sq m Abnormal >60 [facility] Comment on above: Order Comment: No: D o not add to previous draw Result Comment: Calc ulation may not be valid for patients over 70 years Performed By: #### 0 0071, 98688, 98194, 06184 #### [facility] [address] [place] [address], [place] GFR/1.73 sq M predicted among non-blacks MDRD (S/P/Bld) [Vol rate/Area] 43 ml/min/1.73sq m Abnormal >60 [facility] Comment on above: Order Comment: No: D o not add to previous draw Result Comment: Calc ulation may not be valid for patients over 70 years Performed By: #### 0 0071, 87844, 04281, 07648 #### [facility] [address] [place] [address], [place] Glucose [Mass/Vol] 105 mg/dL High 70-100 [facility] Comment on above: Order Comment: No: D o not add to previous draw Performed By: #### 0 0071, 10925, 20925, 49855 #### [facility] [address] [place] [address], [place] Potassium [Moles/Vol] 3.2 mmol/L Low 3.5-5.1 [facility] Comment on above: Order Comment: No: D o not add to previous draw Performed By: #### 0 0071, 12202, 38278, 55003 #### [facility] [address] [place] [address], [place] Sodium [Moles/Vol] 134 mmol/L Low 136-145 [facility] Comment on above: Order Comment: No: D o not add to previous draw Performed By: #### 0 0071, 99980, 64930, 19839 #### [facility] [address] [place] [address], [place] Urea nitrogen [Mass/Vol] 22 mg/dL Normal 7-25 [facility] Comment on above: Order Comment: No: D o not add to previous draw Performed By: #### 0 0071, 36230, 04072, 33611 #### [facility] [address] [place] [address], [place] Calcium [Mass/Vol] 8.5 mg/dL Low 8.6-10.3 [facility] Comment on above: Order Comment: No: D o not add to previous draw Performed By: #### 0 0071, 92786, 48948, 70118 #### [facility] [address] [place] [address], [place] Chloride [Moles/Vol] 95 mmol/L Low 98-107 [facility] Comment on above: Order Comment: No: D o not add to previous draw Performed By: #### 0 0071, 36057, 34741, 17373 #### [facility] [address] [place] [address], [place] CO2 [Moles/Vol] 34 mmol/L High 21-31 [facility] Comment on above: Order Comment: No: D o not add to previous draw Performed By: #### 0 0071, 43277, 94904, 24686 #### [facility] [address] [place] [address], [place] Creatinine [Mass/Vol] 1.15 mg/dL Normal 0.60-1.20 [facility] Comment on above: Order Comment: No: D o not add to previous draw Performed By: #### 0 0071, 83488, 87968, 14623 #### [facility] [address] [place] [address], [place] GFR/1.73 sq M predicted among blacks MDRD (S/P/Bld) [Vol rate/Area] 55 ml/min/1.73sq m Abnormal >60 [facility] Comment on above: Order Comment: No: D o not add to previous draw Result Comment: Calc ulation may not be valid for patients over 70 years Performed By: #### 0 0071, 00870, 20741, 62826 #### [facility] [address] [place] [address], [place] GFR/1.73 sq M predicted among non-blacks MDRD (S/P/Bld) [Vol rate/Area] 45 ml/min/1.73sq m Abnormal >60 [facility] Comment on above: Order Comment: No: D o not add to previous draw Result Comment: Calc ulation may not be valid for patients over 70 years Performed By: #### 0 0071, 34256, 31801, 01259 #### [facility] [address] [place] [address], [place] Glucose [Mass/Vol] 109 mg/dL High 70-100 [facility] Comment on above: Order Comment: No: D o not add to previous draw Performed By: #### 0 0071, 47122, 18163, 27409 #### [facility] [address] [place] [address], [place] Potassium [Moles/Vol] 2.8 mmol/L Low 3.5-5.1 [facility] Comment on above: Order Comment: No: D o not add to previous draw Performed By: #### 0 0071, 78549, 59644, 35792 #### [facility] [address] [place] [address], [facility] Sodium [Moles/Vol] 136 mmol/L Normal 136-145 [facility] Comment on above: Order Comment: No: D o not add to previous draw Performed By: #### 0 0071, 09950, 34099, 99027 #### [facility] [address] [place] [address], [facility] Urea nitrogen [Mass/Vol] 26 mg/dL High 7-25 [facility] Comment on above: Order Comment: No: D o not add to previous draw Performed By: #### 0 0071, 97478, 06363, 95191 #### [facility] [address] [place] [address], [place] MAGNESIUM BLOODon 01-14-2019 Magnesium [Mass/Vol] 2.1 mg/dL Normal 1.9-2.7 [facility] Comment on above: Order Comment: No: D o not add to previous draw Performed By: #### 0 0071, 02109, 35989, 33927 #### [facility] [address] [place] [address], [place] Magnesium [Mass/Vol] 1.6 mg/dL Low 1.9-2.7 [facility] Comment on above: Order Comment: No: D o not add to previous draw Performed By: #### 0 0071, 93334, 94171, 23291 #### [facility] [address] [place] [address], [facility] BASIC METABOLIC PANELon 11-2 Calcium [Mass/Vol] 8.6 mg/dL Normal 8.6-10.3 [facility] Comment on above: Order Comment: No: D o not add to previous draw Performed By: #### 0 0071, 67957, 05486, 72644 #### [facility] [address] [place] [address], [facility] Chloride [Moles/Vol] 96 mmol/L Low 98-107 [facility] Comment on above: Order Comment: No: D o not add to previous draw Performed By: #### 0 0071, 58258, 96317, 05607 #### [facility] [address] [place] [address], [facility] CO2 [Moles/Vol] 34 mmol/L High 21-31 [facility] Comment on above: Order Comment: No: D o not add to previous draw Performed By: #### 0 0071, 68604, 81312, 96041 #### [facility] [address] [place] [address], [facility] Creatinine [Mass/Vol] 0.97 mg/dL Normal 0.60-1.20 [facility] Comment on above: Order Comment: No: D o not add to previous draw Performed By: #### 0 0071, 75807, 93518, 60043 #### [facility] [address] [place] [address], [facility] GFR/1.73 sq M predicted among blacks MDRD (S/P/Bld) [Vol rate/Area] mL/min/{1.73_m2} Normal >60 [facility] Comment on above: Order Comment: No: D o not add to previous draw Result Comment: Calc ulation may not be valid for patients over 70 years Performed By: #### 0 0071, 83880, 63053, 11991 #### [facility] [address] [place] [address], [facility] GFR/1.73 sq M predicted among non-blacks MDRD (S/P/Bld) [Vol rate/Area] 55 ml/min/1.73sq m Abnormal >60 [facility] Comment on above: Order Comment: No: D o not add to previous draw Result Comment: Calc ulation may not be valid for patients over 70 years Performed By: #### 0 0071, 07503, 58720, 60258 #### [facility] [address] [place] [address], [place] Glucose [Mass/Vol] 93 mg/dL Normal 70-100 [facility] Comment on above: Order Comment: No: D o not add to previous draw Performed By: #### 0 0071, 70961, 57748, 58503 #### [facility] [address] [place] [address], [place] Potassium [Moles/Vol] 3.4 mmol/L Low 3.5-5.1 [facility] Comment on above: Order Comment: No: D o not add to previous draw Performed By: #### 0 0071, 14554, 10460, 18507 #### [facility] [address] [place] [address], [place] Sodium [Moles/Vol] 138 mmol/L Normal 136-145 [facility] Comment on above: Order Comment: No: D o not add to previous draw Performed By: #### 0 0071, 11337, 91634, 78025 #### [facility] [address] [place] [address], [place] Urea nitrogen [Mass/Vol] 23 mg/dL Normal 7-25 [facility] Comment on above: Order Comment: No: D o not add to previous draw Performed By: #### 0 0071, 90250, 64746, 96262 #### [facility] [address] [place] [address], [facility] CBC COMPLETE BLOOD COUNTon 03-13-2018 Erythrocyte distribution width (RBC) [Ratio] Unable to calculate Normal 11.5-15.0 [facility] Comment on above: Order Comment: No: D o not add to previous draw Performed By: #### 0 0071, 35064, 99539, 06202 #### [facility] [address] [place] [address], [facility] Hematocrit (Bld) [Volume fraction] 29.9 % Low 36.0-45.0 [facility] Comment on above: Order Comment: No: D o not add to previous draw Performed By: #### 0 0071, 72827, 75703, 75342 #### [facility] [address] [place] [address], [facility] Hemoglobin (Bld) [Mass/Vol] 9.5 g/dL Low 12.0-15.0 [facility] Comment on above: Order Comment: No: D o not add to previous draw Performed By: #### 0 0071, 82985, 26581, 12364 #### [facility] [address] [place] [address], [facility] MCH (RBC) [Entitic mass] 30.6 pg Normal 27.0-33.0 [facility] Comment on above: Order Comment: No: D o not add to previous draw Performed By: #### 0 0071, 62907, 61977, 20447 #### [facility] [address] [place] [address], [place] MCHC (RBC) [Mass/Vol] 31.8 g/dL Low 32.0-35.0 [facility] Comment on above: Order Comment: No: D o not add to previous draw Performed By: #### 0 0071, 73687, 95781, 22155 #### [facility] [address] [place] [address], [place] MCV (RBC) [Entitic vol] 96.5 fL Normal 82.0-98.0 [facility] Comment on above: Order Comment: No: D o not add to previous draw Performed By: #### 0 0071, 66740, 07738, 43689 #### [facility] [address] [place] [address], [facility] Nucleated RBC/100 WBC (Bld) [Ratio] 0 % Normal 0-0 [facility] Comment on above: Order Comment: No: D o not add to previous draw Performed By: #### 0 0071, 22843, 78822, 39013 #### [facility] [address] [facility] [address], [facility] PLAT CNT 209 10*3/uL Normal 150-400 [facility] Comment on above: Order Comment: No: D o not add to previous draw Performed By: #### 0 0071, 67588, 37581, 42002 #### [facility] [address] [facility] [place] [address], [facility] RBC (Bld) [#/Vol] 3.10 10*6/uL Low 3.80-5.00 [facility] Comment on above: Order Comment: No: D o not add to previous draw Performed By: #### 0 0071, 38305, 78878, 47018 #### [facility] [address] [place] [address], [facility] WBC (Bld) [#/Vol] 7.86 10*3/uL Normal 4.00-10.60 [facility] Comment on above: Order Comment: No: D o not add to previous draw Performed By: #### 0 0071, 21802, 72538, 56761 #### [facility] [address] [place] [address], [facility] BASIC METABOLIC PANELon 11-2 Calcium [Mass/Vol] 9.3 mg/dL Normal 8.6-10.3 [facility] Comment on above: Order Comment: No: D o not add to previous draw Performed By: #### 0 0071, 42117, 73719, 75085 #### [facility] [address] [place] [address], [facility] Chloride [Moles/Vol] 103 mmol/L Normal 98-107 [facility] Comment on above: Order Comment: No: D o not add to previous draw Performed By: #### 0 0071, 93264, 12113, 14336 #### [facility] [address] [place] [address], [place] CO2 [Moles/Vol] 32 mmol/L High 21-31 [facility] Comment on above: Order Comment: No: D o not add to previous draw Performed By: #### 0 0071, 40524, 54903, 55498 #### [facility] [address] [place] [address], [facility] [facility] Creatinine [Mass/Vol] 1.14 mg/dL Normal 0.60-1.20 [facility] Comment on above: Order Comment: No: D o not add to previous draw Performed By: #### 0 0071, 91843, 34552, 92979 #### [facility] [address] [place] [address], [facility] GFR/1.73 sq M predicted among blacks MDRD (S/P/Bld) [Vol rate/Area] 56 ml/min/1.73sq m Abnormal >60 [facility] Comment on above: Order Comment: No: D o not add to previous draw Result Comment: Calc ulation may not be valid for patients over 70 years Performed By: #### 0 0071, 10717, 35610, 93901 #### [facility] [address] [place] [address], [facility] GFR/1.73 sq M predicted among non-blacks MDRD (S/P/Bld) [Vol rate/Area] 46 ml/min/1.73sq m Abnormal >60 [facility] Comment on above: Order Comment: No: D o not add to previous draw Result Comment: Calc ulation may not be valid for patients over 70 years Performed By: #### 0 0071, 34000, 48286, 18965 #### [facility] [address] [place] [address], [place] Glucose [Mass/Vol] 93 mg/dL Normal 70-100 [facility] Comment on above: Order Comment: No: D o not add to previous draw Performed By: #### 0 0071, 46249, 85877, 37442 #### [facility] [address] [place] [address], [place] Potassium [Moles/Vol] 3.5 mmol/L Normal 3.5-5.1 [facility] Comment on above: Order Comment: No: D o not add to previous draw Performed By: #### 0 0071, 05114, 36732, 62200 #### [facility] [address] [place] [address], [place] Sodium [Moles/Vol] 142 mmol/L Normal 136-145 [facility] Comment on above: Order Comment: No: D o not add to previous draw Performed By: #### 0 0071, 43008, 50369, 90353 #### [facility] [address] [place] [address], [place] Urea nitrogen [Mass/Vol] 27 mg/dL High 7-25 [facility] Comment on above: Order Comment: No: D o not add to previous draw Performed By: #### 0 0071, 94609, 52376, 14604 #### [facility] [address] [place] [address], [place] CBC COMPLETE BLOOD COUNTon 03-11-2018 Erythrocyte distribution width (RBC) [Ratio] Unable to calculate Normal 11.5-15.0 [facility] Comment on above: Order Comment: No: D o not add to previous draw Performed By: #### 0 0071, 08651, 90933, 22439 #### [facility] [address] Hematocrit (Bld) [Volume fraction] 27.8 % Low 36.0-45.0 [facility] Comment on above: Order Comment: No: D o not add to previous draw Performed By: #### 0 0071, 43917, 01258, 93066 #### [facility] [address] [place] [address], [facility] Hemoglobin (Bld) [Mass/Vol] 8.4 g/dL Low 12.0-15.0 [facility] Comment on above: Order Comment: No: D o not add to previous draw Performed By: #### 0 0071, 20697, 18726, 42094 #### [facility] [address] MCH (RBC) [Entitic mass] 29.8 pg Normal 27.0-33.0 [facility] Comment on above: Order Comment: No: D o not add to previous draw Performed By: #### 0 0071, 54409, 91898, 17871 #### [facility] [address] [place] [address], [facility] MCHC (RBC) [Mass/Vol] 30.2 g/dL Low 32.0-35.0 [facility] Comment on above: Order Comment: No: D o not add to previous draw Performed By: #### 0 0071, 49361, 12705, 77244 #### [facility] [address] [facility] [place] [address], [facility] MCV (RBC) [Entitic vol] 98.6 fL High 82.0-98.0 [facility] Comment on above: Order Comment: No: D o not add to previous draw Performed By: #### 0 0071, 70925, 02833, 92625 #### [facility] [address] [place] [address], [facility] Nucleated RBC/100 WBC (Bld) [Ratio] 0 % Normal 0-0 [facility] Comment on above: Order Comment: No: D o not add to previous draw Performed By: #### 0 0071, 09553, 52342, 32628 #### [facility] [address] [place] [address], [facility] PLAT CNT 205 10*3/uL Normal 150-400 [facility] Comment on above: Order Comment: No: D o not add to previous draw Performed By: #### 0 0071, 59150, 40488, 79778 #### [facility] [address] [place] [address], [facility] RBC (Bld) [#/Vol] 2.82 10*6/uL Low 3.80-5.00 [facility] Comment on above: Order Comment: No: D o not add to previous draw Performed By: #### 0 0071, 26795, 93498, 87825 #### [facility] [address] [facility] [place] [place] [address], [facility] WBC (Bld) [#/Vol] 7.35 10*3/uL Normal 4.00-10.60 [facility] Comment on above: Order Comment: No: D o not add to previous draw Performed By: #### 0 0071, 56465, 24184, 87653 #### [facility] [address] [facility] [place] [address], [facility] BASIC METABOLIC PANELon 11-2 Calcium [Mass/Vol] 9.0 mg/dL Normal 8.6-10.3 [facility] Comment on above: Order Comment: No: D o not add to previous draw Performed By: #### 0 0071, 44864, 40094, 68130 #### [facility] [address] [facility] [place] [address], [facility] Chloride [Moles/Vol] 106 mmol/L Normal 98-107 [facility] Comment on above: Order Comment: No: D o not add to previous draw Performed By: #### 0 0071, 12194, 84491, 02086 #### [facility] [address] [place] [address], [facility] CO2 [Moles/Vol] 29 mmol/L Normal 21-31 [facility] Comment on above: Order Comment: No: D o not add to previous draw Performed By: #### 0 0071, 49060, 19311, 54071 #### [facility] [address] [place] [address], [place] Creatinine [Mass/Vol] 1.33 mg/dL High 0.60-1.20 [facility] Comment on above: Order Comment: No: D o not add to previous draw Performed By: #### 0 0071, 70699, 04966, 48556 #### [facility] [address] [place] [address], [facility] GFR/1.73 sq M predicted among blacks MDRD (S/P/Bld) [Vol rate/Area] 47 ml/min/1.73sq m Abnormal >60 [facility] Comment on above: Order Comment: No: D o not add to previous draw Result Comment: Calc ulation may not be valid for patients over 70 years Performed By: #### 0 0071, 60392, 49903, 72877 #### [facility] [address] [place] [address], [facility] GFR/1.73 sq M predicted among non-blacks MDRD (S/P/Bld) [Vol rate/Area] 39 ml/min/1.73sq m Abnormal >60 [facility] Comment on above: Order Comment: No: D o not add to previous draw Result Comment: Calc ulation may not be valid for patients over 70 years Performed By: #### 0 0071, 06032, 37531, 19363 #### [facility] [address] [place] [address], [place] Glucose [Mass/Vol] 92 mg/dL Normal 70-100 [facility] Comment on above: Order Comment: No: D o not add to previous draw Performed By: #### 0 0071, 79277, 83515, 21266 #### [facility] [address] [place] [address], [place] Potassium [Moles/Vol] 3.9 mmol/L Normal 3.5-5.1 [facility] Comment on above: Order Comment: No: D o not add to previous draw Performed By: #### 0 0071, 72511, 54127, 87920 #### [facility] [address] [place] [address], [place] Sodium [Moles/Vol] 141 mmol/L Normal 136-145 [facility] Comment on above: Order Comment: No: D o not add to previous draw Performed By: #### 0 0071, 85973, 14690, 54701 #### [facility] [address] [place] [address], [facility] Urea nitrogen [Mass/Vol] 34 mg/dL High 7-25 [facility] Comment on above: Order Comment: No: D o not add to previous draw Performed By: #### 0 0071, 76387, 14400, 82310 #### [facility] [address] [place] [address], [facility] CBC COMPLETE BLOOD COUNTon 03-10-2018 Erythrocyte distribution width (RBC) [Ratio] ---- Normal 11.5-15.0 [facility] Comment on above: Order Comment: No: D o not add to previous draw Performed By: #### 0 0071, 87656, 24247, 38074 #### [facility] [address] [place] [address], [place] Hematocrit (Bld) [Volume fraction] 27.6 % Low 36.0-45.0 [facility] Comment on above: Order Comment: No: D o not add to previous draw Performed By: #### 0 0071, 01837, 77728, 98397 #### [facility] [address] [place] [address], [place] Hemoglobin (Bld) [Mass/Vol] 8.2 g/dL Low 12.0-15.0 [facility] Comment on above: Order Comment: No: D o not add to previous draw Performed By: #### 0 0071, 76296, 43131, 92938 #### [facility] [address] [place] [address], [facility] MCH (RBC) [Entitic mass] 29.6 pg Normal 27.0-33.0 [facility] Comment on above: Order Comment: No: D o not add to previous draw Performed By: #### 0 0071, 30647, 15225, 80285 #### [facility] [address] [facility] [address], [facility] MCHC (RBC) [Mass/Vol] 29.7 g/dL Low 32.0-35.0 [facility] Comment on above: Order Comment: No: D o not add to previous draw Performed By: #### 0 0071, 67972, 91134, 17077 #### [facility] [address] [facility] [place] [address], [facility] MCV (RBC) [Entitic vol] 99.6 fL High 82.0-98.0 [facility] Comment on above: Order Comment: No: D o not add to previous draw Performed By: #### 0 0071, 69248, 39150, 96842 #### [facility] [address] [facility] Nucleated RBC/100 WBC (Bld) [Ratio] 0 % Normal 0-0 [facility] Comment on above: Order Comment: No: D o not add to previous draw Performed By: #### 0 0071, 69704, 78026, 44252 #### [facility] [address] [facility] [place] [address], [facility] PLAT CNT 213 10*3/uL Normal 150-400 [facility] Comment on above: Order Comment: No: D o not add to previous draw Performed By: #### 0 0071, 15119, 80201, 57601 #### [facility] [address] [place] [address], [facility] RBC (Bld) [#/Vol] 2.77 10*6/uL Low 3.80-5.00 [facility] Comment on above: Order Comment: No: D o not add to previous draw Performed By: #### 0 0071, 89806, 34022, 12551 #### [facility] [address] [place] [address], [facility] WBC (Bld) [#/Vol] 7.75 10*3/uL Normal 4.00-10.60 [facility] Comment on above: Order Comment: No: D o not add to previous draw Performed By: #### 0 0071, 16341, 14375, 28908 #### [facility] [address] [place] [address], [facility] CBC COMPLETE BLOOD COUNTon 03-09-2018 Erythrocyte distribution width (RBC) [Ratio] 27.1 % High 11.5-15.0 [facility] Comment on above: Order Comment: No: D o not add to previous draw Performed By: #### 0 0071, 14824, 86194, 28106 #### [facility] [address] [facility] [place] [address], [facility] Hematocrit (Bld) [Volume fraction] 29.0 % Low 36.0-45.0 [facility] Comment on above: Order Comment: No: D o not add to previous draw Performed By: #### 0 0071, 75008, 59652, 00459 #### [facility] [address] [place] [address], [place] Hemoglobin (Bld) [Mass/Vol] 8.9 g/dL Low 12.0-15.0 [facility] Comment on above: Order Comment: No: D o not add to previous draw Performed By: #### 0 0071, 76832, 20704, 93965 #### [facility] [address] MCH (RBC) [Entitic mass] 30.5 pg Normal 27.0-33.0 [facility] Comment on above: Order Comment: No: D o not add to previous draw Performed By: #### 0 0071, 66408, 65984, 86599 #### [facility] [address] [place] [address], [facility] MCHC (RBC) [Mass/Vol] 30.7 g/dL Low 32.0-35.0 [facility] Comment on above: Order Comment: No: D o not add to previous draw Performed By: #### 0 0071, 74824, 84054, 29442 #### [facility] [address] [facility]. [address] MCV (RBC) [Entitic vol] 99.3 fL High 82.0-98.0 [facility] Comment on above: Order Comment: No: D o not add to previous draw Performed By: #### 0 0071, 16073, 13241, 82702 #### [facility] [address] [facility]. [address] Nucleated RBC/100 WBC (Bld) [Ratio] 0 % Normal 0-0 [facility] Comment on above: Order Comment: No: D o not add to previous draw Performed By: #### 0 0071, 35839, 84874, 85550 #### [facility] [address] [facility] [place] [address], [facility] PLAT CNT 232 10*3/uL Normal 150-400 [facility] Comment on above: Order Comment: No: D o not add to previous draw Performed By: #### 0 0071, 91076, 04512, 72194 #### [facility] [address] [facility] [place] [address], [facility] RBC (Bld) [#/Vol] 2.92 10*6/uL Low 3.80-5.00 [facility] Comment on above: Order Comment: No: D o not add to previous draw Performed By: #### 0 0071, 39213, 78968, 12075 #### [facility] [address] [place] [address], [facility] WBC (Bld) [#/Vol] 9.20 10*3/uL Normal 4.00-10.60 [facility] Comment on above: Order Comment: No: D o not add to previous draw Performed By: #### 0 0071, 43555, 56961, 74706 #### [facility] [address] [place] [address], [facility] COMP METABOLIC PANELon 01-07 Albumin [Mass/Vol] 3.7 g/dL Normal 3.5-5.7 [facility] Comment on above: Performed By: #### 0 0071, 02837, 58355, 68194 #### [facility] [address] [place] [address], [facility] ALKALINE PHOSPH 107 IU/L High 34-104 [facility] Comment on above: Performed By: #### 0 0071, 93956, 70964, 05007 #### [facility] [address] [place] [address], [facility] ALT [Catalytic activity/Vol] 16 U/L Normal 7-52 [facility] Comment on above: Performed By: #### 0 0071, 21926, 44658, 53354 #### [facility] [address] [place] [address], [facility] AST [Catalytic activity/Vol] 22 U/L Normal 13-39 [facility] Comment on above: Performed By: #### 0 0071, 52061, 71442, 82814 #### [facility] [address] [place] [address], [facility] Bilirubin [Mass/Vol] 1.1 mg/dL High 0.3-1.0 [facility] Comment on above: Performed By: #### 0 0071, 53528, 75977, 74765 #### [facility] [address] [place] [address], [place] Calcium [Mass/Vol] 8.8 mg/dL Normal 8.6-10.3 [facility] Comment on above: Performed By: #### 0 0071, 80587, 62809, 40121 #### [facility] [address] [place] [address], [place] Chloride [Moles/Vol] 107 mmol/L Normal 98-107 [facility] Comment on above: Performed By: #### 0 0071, 05733, 63730, 77824 #### [facility] [address] [place] [address], [place] CO2 [Moles/Vol] 28 mmol/L Normal 21-31 [facility] Comment on above: Performed By: #### 0 0071, 84393, 55954, 21030 #### [facility] [address] [place] [address], [place] Creatinine [Mass/Vol] 1.73 mg/dL High 0.60-1.20 [facility] Comment on above: Performed By: #### 0 0071, 83124, 79311, 98975 #### [facility] [address] [place] [address], [place] GFR/1.73 sq M predicted among blacks MDRD (S/P/Bld) [Vol rate/Area] 34 ml/min/1.73sq m Abnormal >60 [facility] Comment on above: Result Comment: Calc ulation may not be valid for patients over 70 years Performed By: #### 0 0071, 96477, 68710, 62028 #### [facility] [address] [place] [address], [place] GFR/1.73 sq M predicted among non-blacks MDRD (S/P/Bld) [Vol rate/Area] 28 ml/min/1.73sq m Abnormal >60 [facility] Comment on above: Result Comment: Calc ulation may not be valid for patients over 70 years Performed By: #### 0 0071, 00593, 93840, 00985 #### [facility] [address] [place] [address], [place] Glucose [Mass/Vol] 98 mg/dL Normal 70-100 [facility] Comment on above: Performed By: #### 0 0071, 27992, 22168, 91408 #### [facility] [address] [place] [address], [place] Potassium [Moles/Vol] 4.6 mmol/L Normal 3.5-5.1 [facility] Comment on above: Performed By: #### 0 0071, 50695, 49016, 62553 #### [facility] [address] [place] [address], [place] Protein [Mass/Vol] 6.6 g/dL Normal 6.0-8.3 [facility] Comment on above: Performed By: #### 0 0071, 34892, 84426, 55245 #### [facility] [address] [place] [address], [place] Sodium [Moles/Vol] 141 mmol/L Normal 136-145 [facility] Comment on above: Performed By: #### 0 0071, 10162, 06764, 53509 #### [facility] [address] [place] [address], [place] Urea nitrogen [Mass/Vol] 42 mg/dL High 7-25 [facility] Comment on above: Performed By: #### 0 0071, 70607, 86983, 32457 #### [facility] [address] [place] [address], [place] Cardiovascular Lab Reporton 01-07-2019 Cardiovascular Lab Report [facility] Patient Name: Jimmie [facility] MR #: [id number] Physician: Kevon Trejo Abd Department of [facility] Service Date: 01/07/2019 Division of Birthdate: 1940 Cardiology Room #: [id number] Adult Cardiovascular Services [facility] [address] [place] [id number] Cardiovascular Laboratory Report [id number] DEVELOPER: Dr. Dedrick Washington, simulation tech. INDICATION: This is an 78-year-old female with [...] The patient was also notified that a simulation tech will be assisting during the course of [...] to the right internal jugular vein. Then, Jaffrey sheath was inserted 6-Greek x 11 cm. Then, under fluoroscopy guidance, [...] Serrano MD Date Trans: 01/07/2019 03:58 P/mmo [id number] cc: Edu Odonnell D.O. [facility] [address] Normal [facility] MAGNESIUM BLOODon 01-07-2019 Magnesium [Mass/Vol] 1.9 mg/dL Normal 1.9-2.7 [facility] Comment on above: Order Comment: No: D o not add to previous draw Performed By: #### 0 0071, 08813, 45098, 66081 #### [facility] [address] [place] [address], [facility] PHOSPHORUS BLOODon 9 Phosphate [Mass/Vol] 2.8 mg/dL Normal 2.5-5.0 [facility] Comment on above: Order Comment: No: D o not add to previous draw Performed By: #### 0 0071, 15434, 27897, 11536 #### [facility] [address] [place] [address], [facility] APTTon 01-06-2019 aPTT Coag (Bld) [Time] 33.6 s Normal 25.0-35.0 [facility] Comment on above: Order Comment: No: D [...] THIS PURPOSE. Performed By: #### 0 0071, 65312, 26769, 38187 #### [facility] [address] BASIC METABOLIC PANELon 12-19 Calcium [Mass/Vol] 8.8 mg/dL Normal 8.6-10.3 [facility] Comment on above: Order Comment: No: D o not add to previous draw Performed By: #### 0 0071, 01888, 70879, 98569 #### [facility] [address] [place] [address], [facility] Chloride [Moles/Vol] 103 mmol/L Normal 98-107 [facility] Comment on above: Order Comment: No: D o not add to previous draw Performed By: #### 0 0071, 24701, 53608, 32080 #### [facility] [address] [place] [address], [facility] CO2 [Moles/Vol] 24 mmol/L Normal 21-31 [facility] Comment on above: Order Comment: No: D o not add to previous draw Performed By: #### 0 0071, 87525, 18111, 82721 #### [facility] [address] [place] [address], [facility] Creatinine [Mass/Vol] 3.14 mg/dL High 0.60-1.20 [facility] Comment on above: Order Comment: No: D o not add to previous draw Performed By: #### 0 0071, 99159, 53703, 48643 #### [facility] [address] [place] [address], [place] GFR/1.73 sq M predicted among blacks MDRD (S/P/Bld) [Vol rate/Area] 17 ml/min/1.73sq m Abnormal >60 [facility] Comment on above: Order Comment: No: D o not add to previous draw Result Comment: Calc ulation may not be valid for patients over 70 years Performed By: #### 0 0071, 28895, 64143, 42271 #### [facility] [address] [place] [address], [place] GFR/1.73 sq M predicted among non-blacks MDRD (S/P/Bld) [Vol rate/Area] 14 ml/min/1.73sq m Abnormal >60 [facility] Comment on above: Order Comment: No: D o not add to previous draw Result Comment: Calc ulation may not be valid for patients over 70 years Performed By: #### 0 0071, 49936, 89889, 80882 #### [facility] [address] [place] [address], [place] Glucose [Mass/Vol] 123 mg/dL High 70-100 [facility] Comment on above: Order Comment: No: D o not add to previous draw Performed By: #### 0 0071, 47058, 17159, 30113 #### [facility] [address] [place] [address], [place] Potassium [Moles/Vol] 4.5 mmol/L Normal 3.5-5.1 [facility] Comment on above: Order Comment: No: D o not add to previous draw Performed By: #### 0 0071, 21718, 68962, 41912 #### [facility] [address] [place] [address], [place] Sodium [Moles/Vol] 135 mmol/L Low 136-145 [facility] Comment on above: Order Comment: No: D o not add to previous draw Performed By: #### 0 0071, 19080, 28238, 80511 #### [facility] [address] Urea nitrogen [Mass/Vol] 60 mg/dL High 7-25 [facility] Comment on above: Order Comment: No: D o not add to previous draw Performed By: #### 0 0071, 40884, 45448, 16946 #### [facility] [address] [place] [address], [facility] CBC W/DIFFon 01-06-2019 ABS BASOPHILS 0.0 10*3/uL Normal 0.0-0.2 [facility] Comment on above: Order Comment: No: D o not add to previous draw Performed By: #### 0 0071, 83290, 81505, 07308 #### [facility] [address] [facility] [address] ABS IMM GRANS 0.1 10*3/uL Normal 0.0-0.2 [facility] Comment on above: Order Comment: No: D o not add to previous draw Performed By: #### 0 0071, 20625, 62988, 75458 #### [facility] [address] [facility] [place] [address], [facility] ABS NEUTROPHILS 6.9 10*3/uL Normal 1.6-7.6 [facility] Comment on above: Order Comment: No: D o not add to previous draw Performed By: #### 0 0071, 47380, 97140, 55059 #### [facility] [address] [facility] [address], [facility] ACANTHOCYTES Slight Normal [facility] Comment on above: Order Comment: No: D o not add to previous draw Performed By: #### 0 0071, 35340, 34242, 00199 #### [facility] [address] [place] [address], [facility] ANISO Marked Normal [facility] Comment on above: Order Comment: No: D o not add to previous draw Performed By: #### 0 0071, 19569, 72622, 14884 #### [facility] [address] [place] [address], [facility] Basophils/100 WBC (Bld) 0.2 % Normal 0.0-1.0 [facility] Comment on above: Order Comment: No: D o not add to previous draw Performed By: #### 0 0071, 62573, 35215, 85261 #### [facility] [address] [place] [address], [facility] ELLIPTOCYTES Slight Normal [facility] Comment on above: Order Comment: No: D o not add to previous draw Performed By: #### 0 0071, 65696, 30417, 16731 #### [facility] [address] [place] [address], [facility] Eosinophils (Bld) [#/Vol] 0.2 10*3/uL Normal 0.0-0.5 [facility] Comment on above: Order Comment: No: D o not add to previous draw Performed By: #### 0 0071, 79334, 05694, 93417 #### [facility] [address] [place] [address], [facility] Eosinophils/100 WBC (Bld) 1.6 % Normal 0.0-6.0 [facility] Comment on above: Order Comment: No: D o not add to previous draw Performed By: #### 0 0071, 09603, 90315, 84165 #### [facility] [address] [place] [address], [place] Erythrocyte distribution width (RBC) [Ratio] 27.6 % High 11.5-15.0 [facility] Comment on above: Order Comment: No: D o not add to previous draw Performed By: #### 0 0071, 35798, 68380, 46504 #### [facility] [address] [place] [address] [place] [address] Hematocrit (Bld) [Volume fraction] 27.2 % Low 36.0-45.0 [facility] Comment on above: Order Comment: No: D o not add to previous draw Performed By: #### 0 0071, 13278, 33974, 39006 #### [facility] [address] [facility] [address], [facility] Hemoglobin (Bld) [Mass/Vol] 8.2 g/dL Low 12.0-15.0 [facility] Comment on above: Order Comment: No: D o not add to previous draw Performed By: #### 0 0071, 03939, 39575, 37586 #### [facility] [address] [facility] [place] [address], [facility] IMMATURE GRANS 0.5 % Normal 0.0-1.0 [facility] Comment on above: Order Comment: No: D o not add to previous draw Performed By: #### 0 0071, 44989, 87651, 48267 #### [facility] [address] [facility] [place] [address], [facility] Lymphocytes (Bld) [#/Vol] 1.2 10*3/uL Normal 1.2-4.0 [facility] Comment on above: Order Comment: No: D o not add to previous draw Performed By: #### 0 0071, 95846, 84152, 43734 #### [facility] [address] [facility] [place] [address], [facility] Lymphocytes/100 WBC (Bld) 12.5 % Low 20.0-45.0 [facility] Comment on above: Order Comment: No: D o not add to previous draw Performed By: #### 0 0071, 96839, 10324, 60360 #### [facility] [address] [facility] [facility] [address], [facility] MCH (RBC) [Entitic mass] 29.5 pg Normal 27.0-33.0 [facility] Comment on above: Order Comment: No: D o not add to previous draw Performed By: #### 0 0071, 25612, 61031, 56075 #### [facility] [address] [place] [address], [facility] MCHC (RBC) [Mass/Vol] 30.1 g/dL Low 32.0-35.0 [facility] Comment on above: Order Comment: No: D o not add to previous draw Performed By: #### 0 0071, 33168, 66977, 15774 #### [facility] [address] [place] [address], [facility] MCV (RBC) [Entitic vol] 97.8 fL Normal 82.0-98.0 [facility] Comment on above: Order Comment: No: D o not add to previous draw Performed By: #### 0 0071, 20437, 20158, 08962 #### [facility] [address] [facility] [place] [address], [facility] Monocytes (Bld) [#/Vol] 1.4 10*3/uL High 0.1-1.0 [facility] Comment on above: Order Comment: No: D o not add to previous draw Performed By: #### 0 0071, 32325, 77595, 52312 #### [facility] [address] [facility] [facility] [address], [facility] MONOS 14.5 % High 5.0-12.0 [facility] Comment on above: Order Comment: No: D o not add to previous draw Performed By: #### 0 0071, 68696, 30297, 53687 #### [facility] [address] [place] [address], [facility] Neutrophils/100 WBC (Bld) 70.7 % Normal 40.0-72.0 [facility] Comment on above: Order Comment: No: D o not add to previous draw Performed By: #### 0 0071, 59529, 82954, 26591 #### [facility] [address] [place] [address], [facility] Nucleated RBC/100 WBC (Bld) [Ratio] 0 % Normal 0-0 [facility] Comment on above: Order Comment: No: D o not add to previous draw Performed By: #### 0 0071, 92608, 71061, 03926 #### [facility] [address] [place] [address], [facility] OVALOCYTES Slight Normal [facility] Comment on above: Order Comment: No: D o not add to previous draw Performed By: #### 0 0071, 06513, 42869, 17512 #### [facility] [address] [place] [id number], [facility] PLAT CNT 236 10*3/uL Normal 150-400 [facility] Comment on above: Order Comment: No: D o not add to previous draw Performed By: #### 0 0071, 26803, 67073, 09779 #### [facility] [address] [place] [id number], [facility] POIK Moderate Normal [facility] Comment on above: Order Comment: No: D o not add to previous draw Performed By: #### 0 0071, 11000, 29757, 63038 #### [facility] [address] [place] [address], [facility] POLY Slight Normal [facility] Comment on above: Order Comment: No: D o not add to previous draw Performed By: #### 0 0071, 13054, 64894, 64812 #### [facility] [address] [place] [address], [place] RBC (Bld) [#/Vol] 2.78 10*6/uL Low 3.80-5.00 [facility] Comment on above: Order Comment: No: D o not add to previous draw Performed By: #### 0 0071, 90088, 04208, 67507 #### [facility] [address] [place] [address], [facility] SCHISTOCYTES Slight Normal [facility] Comment on above: Order Comment: No: D o not add to previous draw Performed By: #### 0 0071, 00948, 52605, 00594 #### [facility] [address] [place] [address], [facility] WBC (Bld) [#/Vol] 9.76 10*3/uL Normal 4.00-10.60 [facility] Comment on above: Order Comment: No: D o not add to previous draw Performed By: #### 0 0071, 14123, 64476, 83062 #### [facility] [address] [place] [address], [facility] CPKon 01-06-2019 CK [Catalytic activity/Vol] 26 U/L Low 30-223 [facility] Comment on above: Performed By: #### 0 0071, 48355, 16509, 95721 #### [facility] [address] [place] [address], [facility] FERRITINon 01-06-2019 Ferritin [Mass/Vol] 288 ng/mL Normal 11-307 [facility] Comment on above: Performed By: #### 0 0071, 96085, 84160, 02781 #### [facility] [address] [place] [address], [facility] MAGNESIUM BLOODon 01-06-2019 Magnesium [Mass/Vol] 2.1 mg/dL Normal 1.9-2.7 [facility] Comment on above: Order Comment: No: D o not add to previous draw Performed By: #### 0 0071, 02042, 56475, 07971 #### [facility] [address] [place] [address], [facility] PHOSPHORUS BLOODon 9 Phosphate [Mass/Vol] 3.9 mg/dL Normal 2.5-5.0 [facility] Comment on above: Order Comment: No: D o not add to previous draw Performed By: #### 0 0071, 45567, 91808, 28621 #### [facility] [address] PROTHROMBIN TIMEon 9 INR Coag (PPP) [Relative time] 2.22 {INR} High 0.91-1.16 [facility] Comment on above: Order Comment: No: D [...] CHEST 1995;[id number]. Performed By: #### 0 0071, 89848, 60683, 20803 #### [facility] [address] [facility] [place] [address], [facility] PT Coag (PPP) [Time] 25.0 s High 12.3-14.8 [facility] Comment on above: Order Comment: No: D o not add to previous draw Result Comment: ALL RESULTS MUST BE INTERPRETED WITH RESPECT TO BLOOD DRAWING ARTIFACT OR DILUTION ERROR OF ANTICOAGULANT AT THE TIME OF SAMPLING. Performed By: #### 0 0071, 32585, 22776, 39479 #### [facility] [address] [place] [address], [facility] TIBC- INCLUDES IRONon 2018 FE SATURATION 25 % Normal 20-50 [facility] Comment on above: Performed By: #### 0 0071, 33805, 08231, 06028 #### [facility] [address] [place] [address], [facility] Iron [Mass/Vol] 87 ug/dL Normal 50-212 [facility] Comment on above: Performed By: #### 0 0071, 24010, 37623, 20880 #### [facility] [address] [place] [address], [facility] TIBC 345 mcg/dL Normal 250-450 [facility] Comment on above: Performed By: #### 0 0071, 35621, 00102, 87454 #### [facility] [address] [place] [address], [facility] UIBC 258 mcg/dL Normal 155-355 [facility] Comment on above: Performed By: #### 0 0071, 03789, 43202, 50524 #### [facility] [address] TRANSFERRINon 01-06-2019 Transferrin [Mass/Vol] 282 mg/dL Normal 203-362 [facility] Comment on above: Performed By: #### 0 0071, 35319, 07647, 53903 #### [facility] [address] ANAon 01-05-2019 Nuclear Ab IF (S) [Titer] <1:40 Normal <1:40,1:40 [facility] Comment on above: Order Comment: No: D o not add to previous draw Performed By: #### 0 0071, 28318, 41780, 31725 #### [facility] [address] [place] [address], [facility] BASIC METABOLIC PANELon 12-19 Calcium [Mass/Vol] 8.5 mg/dL Low 8.6-10.3 [facility] Comment on above: Order Comment: No: D o not add to previous draw Performed By: #### 5 0608 #### [facility] [address] [place] [address], [place] Chloride [Moles/Vol] 103 mmol/L Normal 98-107 [facility] Comment on above: Order Comment: No: D o not add to previous draw Performed By: #### 5 0608 #### [facility] [address] [place] [address], [place] CO2 [Moles/Vol] 24 mmol/L Normal 21-31 [facility] Comment on above: Order Comment: No: D o not add to previous draw Performed By: #### 5 0608 #### [facility] [address] [place] [address], [place] Creatinine [Mass/Vol] 2.90 mg/dL High 0.60-1.20 [facility] Comment on above: Order Comment: No: D o not add to previous draw Performed By: #### 5 0608 #### [facility] [address] [place] [address], [place] GFR/1.73 sq M predicted among blacks MDRD (S/P/Bld) [Vol rate/Area] 19 ml/min/1.73sq m Abnormal >60 [facility] Comment on above: Order Comment: No: D o not add to previous draw Result Comment: Calc ulation may not be valid for patients over 70 years Performed By: #### 5 0608 #### [facility] [address] [place] [address], [place] GFR/1.73 sq M predicted among non-blacks MDRD (S/P/Bld) [Vol rate/Area] 16 ml/min/1.73sq m Abnormal >60 [facility] Comment on above: Order Comment: No: D o not add to previous draw Result Comment: Calc ulation may not be valid for patients over 70 years Performed By: #### 5 0608 #### [facility] [address] [place] [address], [place] Glucose [Mass/Vol] 142 mg/dL High 70-100 [facility] Comment on above: Order Comment: No: D o not add to previous draw Performed By: #### 5 0608 #### [facility] [address] [place] [address], [facility] Potassium [Moles/Vol] 4.6 mmol/L Normal 3.5-5.1 [facility] Comment on above: Order Comment: No: D o not add to previous draw Performed By: #### 5 0608 #### [facility] [address] [place] [address], [facility] Sodium [Moles/Vol] 134 mmol/L Low 136-145 [facility] Comment on above: Order Comment: No: D o not add to previous draw Performed By: #### 5 0608 #### [facility] [address] [facility] [place] [address], [facility] Urea nitrogen [Mass/Vol] 53 mg/dL High 7-25 [facility] Comment on above: Order Comment: No: D o not add to previous draw Performed By: #### 5 0608 #### [facility] [address] [facility] BNP (B-TYPE NATRIURETIC PEPT LIVAN)on 01-05-2019 Natriuretic peptide B (Bld) [Mass/Vol] 616 pg/mL High 0-100 [facility] Comment on above: Order Comment: No: D o not add to previous draw Result Comment: Give n the appropriate clinical setting a BNP result of >100 pg/mL indicates congestive heart failure. Performed By: #### 5 0608 #### [facility] [address] [facility] [address], [facility] CBC W/DIFFon 01-05-2019 ABS BASOPHILS 0.0 10*3/uL Normal 0.0-0.2 [facility] Comment on above: Performed By: #### 5 0608 #### [facility] [address] [place] [address], [facility] ABS IMM GRANS 0.1 10*3/uL Normal 0.0-0.2 [facility] Comment on above: Performed By: #### 5 0608 #### [facility] [address] [place] [address], [facility] ABS NEUTROPHILS 7.6 10*3/uL Normal 1.6-7.6 [facility] Comment on above: Performed By: #### 5 0608 #### [facility] [address] [place] [address], [facility] ACANTHOCYTES Slight Normal [facility] Comment on above: Performed By: #### 5 0608 #### [facility] [address] [place] [address], [facility] ANISO Marked Normal [facility] Comment on above: Performed By: #### 5 0608 #### [facility] [address] [place] [address], [facility] Basophils/100 WBC (Bld) 0.2 % Normal 0.0-1.0 [facility] Comment on above: Performed By: #### 5 0608 #### [facility] [address] [place] [address], [facility] THERESA CELLS Slight Normal [facility] Comment on above: Performed By: #### 5 0608 #### [facility] [address] [place] [address], [facility] ELLIPTOCYTES Slight Normal [facility] Comment on above: Performed By: #### 5 0608 #### [facility] [address] [place] [address], [place] Eosinophils (Bld) [#/Vol] 0.0 10*3/uL Normal 0.0-0.5 [facility] Comment on above: Performed By: #### 5 0608 #### [facility] [address] [place] [address], [place] Eosinophils/100 WBC (Bld) 0.2 % Normal 0.0-6.0 [facility] Comment on above: Performed By: #### 5 0608 #### [facility] [address] Erythrocyte distribution width (RBC) [Ratio] 27.2 % High 11.5-15.0 [facility] Comment on above: Result Comment: Resu lt changed by [email or web address] on 01/05/2019 02:09. The previous value was ----. Performed By: #### 5 0608 #### [facility] [address] Hematocrit (Bld) [Volume fraction] 27.5 % Low 36.0-45.0 [facility] Comment on above: Result Comment: Resu lt changed by [email or web address] on 01/05/2019 02:09. The previous value was 27.7. Performed By: #### 5 0608 #### [facility] [address] Hemoglobin (Bld) [Mass/Vol] 8.2 g/dL Low 12.0-15.0 [facility] Comment on above: Performed By: #### 5 0608 #### [facility] [address] IMMATURE GRANS 0.6 % Normal 0.0-1.0 [facility] Comment on above: Performed By: #### 5 0608 #### [facility] [address] Lymphocytes (Bld) [#/Vol] 0.9 10*3/uL Low 1.2-4.0 [facility] Comment on above: Performed By: #### 5 0608 #### [facility] [address] Lymphocytes/100 WBC (Bld) 9.0 % Low 20.0-45.0 [facility] Comment on above: Performed By: #### 5 0608 #### [facility] [address] [place] [address], [facility] MCH (RBC) [Entitic mass] 29.3 pg Normal 27.0-33.0 [facility] Comment on above: Result Comment: Resu lt changed by [email or web address] on 01/05/2019 02:09. The previous value was 29.1. Performed By: #### 5 0608 #### [facility] [address] MCHC (RBC) [Mass/Vol] 29.8 g/dL Low 32.0-35.0 [facility] Comment on above: Result Comment: Resu lt changed by [email or web address] on 01/05/2019 02:09. The previous value was 29.6. Performed By: #### 5 0608 #### [facility] [address] MCV (RBC) [Entitic vol] 98.2 fL High 82.0-98.0 [facility] Comment on above: Performed By: #### 5 0608 #### [facility] [address] Monocytes (Bld) [#/Vol] 1.1 10*3/uL High 0.1-1.0 [facility] Comment on above: Performed By: #### 5 0608 #### [facility] [address] MONOS 11.8 % Normal 5.0-12.0 [facility] Comment on above: Performed By: #### 5 0608 #### [facility] [address] Neutrophils/100 WBC (Bld) 78.2 % High 40.0-72.0 [facility] Comment on above: Performed By: #### 5 0608 #### [facility] [address] [place] [address], [place] Nucleated RBC/100 WBC (Bld) [Ratio] 0 % Normal 0-0 [facility] Comment on above: Performed By: #### 5 0608 #### [facility] [address] [facility] [place] [address], [facility] OTHER 1 Checked by Los navarro M.D. Normal [facility] Comment on above: Result Comment: Resu lt changed by [email or web address] on 01/05/2019 09:19. The previous value was Preliminary report; verified report to follow. Performed By: #### 5 0608 #### [facility] [address] [place] [address], [facility] OVALOCYTES Slight Normal [facility] Comment on above: Performed By: #### 5 0608 #### [facility] [address] [facility] [place] [address], [facility] PLAT CNT 263 10*3/uL Normal 150-400 [facility] Comment on above: Performed By: #### 5 0608 #### [facility] [address] [facility] [place] [address], [facility] POIK Moderate Normal [facility] Comment on above: Performed By: #### 5 0608 #### [facility] [address] [facility] [place] [address], [facility] RBC (Bld) [#/Vol] 2.80 10*6/uL Low 3.80-5.00 [facility] Comment on above: Result Comment: Resu lt changed by [email or web address] on 01/05/2019 02:09. The previous value was 2.82. Performed By: #### 5 0608 #### [facility] [address] [facility] [place] [address], [facility] SCHISTOCYTES Slight Normal [facility] Comment on above: Performed By: #### 5 0608 #### [facility] [address] [place] [address], [place] WBC (Bld) [#/Vol] 9.70 10*3/uL Normal 4.00-10.60 [facility] Comment on above: Result Comment: Resu lt changed by [email or web address] on 01/05/2019 02:09. The previous value was 9.82. Performed By: #### 5 0608 #### [facility] [address] [place] [place] [address], [facility] COMPLEMENT 3on 01-05-2019 COMPLEMENT 3 89 mg/dL Normal 79-152 The [facility] Comment on above: Order Comment: No: D o not add to previous draw Performed By: #### 0 0071, 80959, 74191, 79376 #### [facility] [address] [place] [place] [address], [facility] COMPLEMENT 4on 01-05-2019 COMPLEMENT 4 16 mg/dL Normal 16-38 [facility] Comment on above: Order Comment: No: D o not add to previous draw Performed By: #### 0 0071, 21105, 89704, 90303 #### [facility] [address] [place] [place] [address], [facility] CT CHEST WO CONTRASTon 01-05 CT CHEST WO CONTRAST [facility] Department of Radiology [address] [place] [id number] == Patient Name: JENIFER HERNANDEZ : 1940 Sex: F Age: Race: NA Pt. Location: [id number] Patient Status: I Ordered Date: 01/05/2019 8:15:00 [...] anasarca. Electronically signed by:Christina Jules. Transcribed by: [email or web address], User Resident: Electronically Signed by: CHRISTINA JULES @ 01/06/2019 11:13 AM Normal [facility] Comment on above: Order Comment: No: D o not add to previous draw IMMUNOFIXATION BLOODon 01-05 IgA [Mass/Vol] 233 mg/dL Normal 60-413 [facility] Comment on above: Order Comment: No: D o not add to previous draw Performed By: #### 0 0071, 75105, 21269, 52701 #### [facility] [address] [place] [address], [facility] IgG [Mass/Vol] 1240 mg/dL Normal 591-1540 [facility] Comment on above: Order Comment: No: D o not add to previous draw Performed By: #### 0 0071, 83711, 31575, 93183 #### [facility] [address] [place] [address], [facility] IgM [Mass/Vol] 52 mg/dL Low 54-285 [facility] Comment on above: Order Comment: No: D o not add to previous draw Performed By: #### 0 0071, 36531, 25882, 93919 #### [facility] [address] [place] [address], [facility] IMMUNOFIXATION Serum Immunofixation reveals: A NORMAL PATTERN. SEE SEPARATE REPORT Normal The [facility] Comment on above: Order Comment: No: D o not add to previous draw Performed By: #### 0 0071, 93448, 39125, 17032 #### [facility] [address] [place] [address], [facility] KAPPA LIGHT CHN 7.65 mg/dL High 0.33-1.94 [facility] Comment on above: Order Comment: No: D o not add to previous draw Result Comment: BONNIE Tapia epeated for verification. Performed By: #### 0 0071, 07885, 13619, 61866 #### [facility] [address] [place] [address], [facility] KAPPA/LAMDBA RATIO 2.37 RATIO High 0.26-1.65 The [facility] Comment on above: Order Comment: No: D o not add to previous draw Result Comment: For patients with renal impairment, use a kappa/lambda ratio of 0.37-3.10 Performed By: #### 0 0071, 46192, 79596, 08286 #### [facility] [address] [place] [address], [facility] LAMBDA LIGHT CHN 3.23 mg/dL High 0.57-2.63 [facility] Comment on above: Order Comment: No: D o not add to previous draw Result Comment: LF R epeated for verification. Performed By: #### 0 0071, 30218, 46586, 08287 #### [facility] [address] [place] [address], [facility] OSMOLALITY URINEon 9 Osmolality [Osmolality] 325 mOsm/kg Normal 50-1400 [facility] Comment on above: Order Comment: No: D o not add to previous draw Performed By: #### 0 0071, 72147, 55850, 25171 #### [facility] [address] [place] [address], [place] PROTEIN ELECT Joseph 01-05-2019 Protein [Mass/Vol] 5.9 g/dL Low 6.0-8.3 [facility] Comment on above: Order Comment: No: D o not add to previous draw Performed By: #### 0 0071, 76152, 33500, 07432 #### [facility] [address] [place] [address], [place] Protein [Mass/Vol] Normal [facility] Comment on above: Order Comment: No: D o not add to previous draw Result Comment: Hypo albuminemia and greatly elevated alpha 2 fraction suggests nephrosis. Performed By: #### 0 0071, 76370, 51584, 32383 #### [facility] [address] [place] [address], [place] PROTEIN ELECT URon 9 Protein [Mass/Vol] No abnormal bands seen. Normal The [facility] Comment on above: Order Comment: No: D o not add to previous draw Performed By: #### 0 0071, 69860, 41679, 72716 #### [facility] [address] [place] [address], [place] Protein [Mass/Vol] 379.0 mg/dL Normal [facility] Comment on above: Order Comment: No: D o not add to previous draw Result Comment: Ther e are no established reference values for random urine specimens Performed By: #### 0 0071, 73801, 22034, 99785 #### [facility] [address] [place] [address], [place] SODIUM URINE RANDOMon 2018 Sodium (U) [Moles/Vol] 14 mmol/L Normal [facility] Comment on above: Order Comment: No: D o not add to previous draw Result Comment: Ther e are no established reference values for random urine specimens Performed By: #### 0 0071, 61166, 55056, 71580 #### [facility] [address] [place] [address], [place] URINALYSIS REFLEXon 01-06-20 19 Appearance (U) CLOUDY Abnormal CLEAR [facility] Comment on above: Order Comment: No: D o not add to previous draw Performed By: #### 0 0071, 64681, 18507, 21751 #### [facility] [address] [place] [address], [place] Bilirubin [Mass/Vol] Negative Normal NEGATIVE The [facility] Comment on above: Order Comment: No: D o not add to previous draw Performed By: #### 0 0071, 14949, 20588, 46175 #### [facility] [address] [place] [address], [place] BLOOD Negative Normal NEGATIVE The [facility] Comment on above: Order Comment: No: D o not add to previous draw Performed By: #### 0 0071, 62777, 40776, 71629 #### [facility] [address] [place] [address], [facility] CALCIUM OXALATE CRYSTAL OCC Abnormal NONE SEEN The [facility] Comment on above: Order Comment: No: D o not add to previous draw Performed By: #### 0 0071, 66703, 31331, 00472 #### [facility] [address] [place] [address], [facility] Color (U) FARHEEN Abnormal YELLOW [facility] Comment on above: Order Comment: No: D o not add to previous draw Performed By: #### 0 0071, 98214, 77315, 64792 #### [facility] [address] [place] [address], [facility] EPIS MANY Abnormal FEW,OCC,NONE SEEN [facility] Comment on above: Order Comment: No: D o not add to previous draw Performed By: #### 0 0071, 35360, 59132, 52654 #### [facility] [address] [facility] [place] [address], [facility] Glucose [Mass/Vol] Negative Normal NEGATIVE The [facility] Comment on above: Order Comment: No: D o not add to previous draw Performed By: #### 0 0071, 83893, 00123, 04304 #### [facility] [address] [place] [address], [place] GRANULAR CASTS 6-8 Abnormal NONE SEEN The [facility] Comment on above: Order Comment: No: D o not add to previous draw Performed By: #### 0 0071, 92094, 67138, 95519 #### [facility] [address] [place] [address], [place] HYALINE CASTS 4-6 Abnormal NONE SEEN The [facility] Comment on above: Order Comment: No: D o not add to previous draw Performed By: #### 0 0071, 14474, 74883, 71071 #### [facility] [address] [place] [address], [facility] KETONE Negative Normal NEGATIVE The [facility] Comment on above: Order Comment: No: D o not add to previous draw Performed By: #### 0 0071, 08035, 82929, 16816 #### [facility] [address] [place] [address], [facility] LEUK ARASH LARGE Abnormal NEGATIVE The [facility] Comment on above: Order Comment: No: D o not add to previous draw Performed By: #### 0 0071, 96452, 75453, 13637 #### [facility] [address] [place] [address], [facility] MUCUS THREADS FEW Abnormal NONE SEEN The [facility] Comment on above: Order Comment: No: D o not add to previous draw Performed By: #### 0 0071, 51301, 17797, 81022 #### [facility] [address] [place] [address], [facility] Nitrite Ql (U) Negative Normal NEGATIVE The [facility] Comment on above: Order Comment: No: D o not add to previous draw Performed By: #### 0 0071, 14854, 70574, 59997 #### [facility] [address] [facility] [place] [address], [facility] pH (Bld) 5.0 Normal 5.0-8.0 The [facility] Comment on above: Order Comment: No: D o not add to previous draw Performed By: #### 0 0071, 86202, 37640, 52666 #### [facility] [address] [place] [address], [facility] Protein (U) [Mass/Vol] 100 mg/dL Abnormal NEGATIVE [facility] Comment on above: Order Comment: No: D o not add to previous draw Performed By: #### 0 0071, 56885, 22619, 46166 #### [facility] [address] [place] [address], [facility] RBC (U) [#/Vol] 0-2 Abnormal NONE SEEN The [facility] Comment on above: Order Comment: No: D o not add to previous draw Performed By: #### 0 0071, 71472, 35906, 34167 #### [facility] [address] [place] [address], [facility] SPEC GRAV 1.015 Normal 1.015-1.020 [facility] Comment on above: Order Comment: No: D o not add to previous draw Performed By: #### 0 0071, 31075, 84870, 33673 #### [facility] [address] [facility] [place] [address], [facility] UA COMMENT 2 2-4 Waxy casts Normal The [facility] Comment on above: Order Comment: No: D o not add to previous draw Performed By: #### 0 0071, 83807, 05692, 08651 #### [facility] [address] [place] [address], [facility] WBC UA 51-100 Abnormal NONE SEEN The [facility] Comment on above: Order Comment: No: D o not add to previous draw Performed By: #### 0 0071, 02478, 46558, 31883 #### [facility] [address] [place] [address], [facility] URINE CONCEPCION STAIN/EOSon EOSINOPHIL SMEAR NONE SEEN Normal NSN The [facility] Comment on above: Order Comment: No: D o not add to previous draw [place] Normal The [facility] Comment on above: Order Comment: No: D o not add to previous draw Result Comment: Test Performed by [employer] [address] [place] [address] [id number] - Released 01/06/2019 17:38 US RENALon 01-05-2019 US RENAL [facility] Department of Radiology [address] [place] [address] == Patient Name: JENIFER HERNANDEZ : 1940 Sex: F Age: Race: NA Pt. Location: [id number] Patient Status: I Ordered Date: 01/05/2019 2:15:00 [...] effusion. Electronically signed by:Los Arroyo. Transcribed by: [email or web address], User Resident: Electronically Signed by: LOS ARROYO @ 01/05/2019 03:14 PM Normal The [facility] Comment on above: Order Comment: No: D o not add to previous draw BASIC METABOLIC PANELon 11-0 Calcium [Mass/Vol] 9.2 mg/dL Normal 8.6-10.3 The [facility] Comment on above: Order Comment: No: D o not add to previous draw Performed By: #### 5 0608 #### [facility] [address] [place] [address], [place] Chloride [Moles/Vol] 106 mmol/L Normal 98-107 The [facility] Comment on above: Order Comment: No: D o not add to previous draw Performed By: #### 5 0608 #### [facility] [address] [place] [address], [place] CO2 [Moles/Vol] 31 mmol/L Normal 21-31 The [facility] Comment on above: Order Comment: No: D o not add to previous draw Performed By: #### 5 0608 #### [facility] [address] [place] [address], [place] Creatinine [Mass/Vol] 1.01 mg/dL Normal 0.60-1.20 The [facility] Comment on above: Order Comment: No: D o not add to previous draw Performed By: #### 5 0608 #### [facility] [address] [place] [address], [place] GFR/1.73 sq M predicted among blacks MDRD (S/P/Bld) [Vol rate/Area] mL/min/{1.73_m2} Normal >60 The [facility] Comment on above: Order Comment: No: D o not add to previous draw Result Comment: Calc ulation may not be valid for patients over 70 years Performed By: #### 5 0608 #### [facility] [address] [place] [address], [place] GFR/1.73 sq M predicted among non-blacks MDRD (S/P/Bld) [Vol rate/Area] 53 ml/min/1.73sq m Abnormal >60 The [facility] Comment on above: Order Comment: No: D o not add to previous draw Result Comment: Calc ulation may not be valid for patients over 70 years Performed By: #### 5 0608 #### [facility] [address] [place] [address], [facility] Glucose [Mass/Vol] 93 mg/dL Normal 70-100 The [facility] Comment on above: Order Comment: No: D o not add to previous draw Performed By: #### 5 0608 #### [facility] [address] [place] [address], [facility] Potassium [Moles/Vol] 3.2 mmol/L Low 3.5-5.1 [facility] Comment on above: Order Comment: No: D o not add to previous draw Performed By: #### 5 0608 #### [facility] [address] [place] [address], [facility] Sodium [Moles/Vol] 145 mmol/L Normal 136-145 [facility] Comment on above: Order Comment: No: D o not add to previous draw Performed By: #### 5 0608 #### [facility] [address] [place] [address], [facility] Urea nitrogen [Mass/Vol] 31 mg/dL High 7-25 [facility] Comment on above: Order Comment: No: D o not add to previous draw Performed By: #### 5 0608 #### [facility] [address] [place] [address], [facility] CBC COMPLETE BLOOD COUNTon 02-23-2018 Erythrocyte distribution width (RBC) [Ratio] 17.2 % High 11.5-15.0 [facility] Comment on above: Order Comment: No: D o not add to previous draw Performed By: #### 5 0608 #### [facility] [address] [place] [address], [facility] Hematocrit (Bld) [Volume fraction] 27.2 % Low 36.0-45.0 [facility] Comment on above: Order Comment: No: D o not add to previous draw Performed By: #### 5 0608 #### [facility] [address] [facility] [address], [facility] Hemoglobin (Bld) [Mass/Vol] 7.9 g/dL Low 12.0-15.0 [facility] Comment on above: Order Comment: No: D o not add to previous draw Performed By: #### 5 0608 #### [facility] [address] [facility] [place] [address], [facility] MCH (RBC) [Entitic mass] 27.1 pg Normal 27.0-33.0 The [facility] Comment on above: Order Comment: No: D o not add to previous draw Performed By: #### 5 0608 #### [facility] [address] [facility] MCHC (RBC) [Mass/Vol] 29.0 g/dL Low 32.0-35.0 The [facility] Comment on above: Order Comment: No: D o not add to previous draw Performed By: #### 5 0608 #### [facility] [address] [place] [address], [facility] MCV (RBC) [Entitic vol] 93.2 fL Normal 82.0-98.0 The [facility] Comment on above: Order Comment: No: D o not add to previous draw Performed By: #### 5 0608 #### [facility] [address] Nucleated RBC/100 WBC (Bld) [Ratio] 0 % Normal 0-0 [facility] Comment on above: Order Comment: No: D o not add to previous draw Performed By: #### 5 0608 #### [facility] [address] [place] [address], [facility] PLAT CNT 238 10*3/uL Normal 150-400 [facility] Comment on above: Order Comment: No: D o not add to previous draw Performed By: #### 5 0608 #### [facility] [address] [place] [address], [facility] RBC (Bld) [#/Vol] 2.92 10*6/uL Low 3.80-5.00 [facility] Comment on above: Order Comment: No: D o not add to previous draw Performed By: #### 5 0608 #### [facility] [address] [place] [address], [facility] WBC (Bld) [#/Vol] 7.05 10*3/uL Normal 4.00-10.60 [facility] Comment on above: Order Comment: No: D o not add to previous draw Performed By: #### 5 0608 #### [facility] [address] [place] [address], [facility] BASIC METABOLIC PANELon 11-0 Calcium [Mass/Vol] 9.5 mg/dL Normal 8.6-10.3 [facility] Comment on above: Order Comment: No: D o not add to previous draw Performed By: #### 5 0608 #### [facility] [address] [place] [address], [facility] Chloride [Moles/Vol] 103 mmol/L Normal 98-107 The [facility] Comment on above: Order Comment: No: D o not add to previous draw Performed By: #### 5 0608 #### [facility] [address] [place] [address], [facility] CO2 [Moles/Vol] 34 mmol/L High 21-31 [facility] Comment on above: Order Comment: No: D o not add to previous draw Performed By: #### 5 0608 #### [facility] [address] [place] [address], [facility] Creatinine [Mass/Vol] 1.09 mg/dL Normal 0.60-1.20 [facility] Comment on above: Order Comment: No: D o not add to previous draw Performed By: #### 5 0608 #### [facility] [address] [place] [address], [place] GFR/1.73 sq M predicted among blacks MDRD (S/P/Bld) [Vol rate/Area] 59 ml/min/1.73sq m Abnormal >60 [facility] Comment on above: Order Comment: No: D o not add to previous draw Result Comment: Calc ulation may not be valid for patients over 70 years Performed By: #### 5 0608 #### [facility] [address] [place] [address], [place] GFR/1.73 sq M predicted among non-blacks MDRD (S/P/Bld) [Vol rate/Area] 48 ml/min/1.73sq m Abnormal >60 [facility] Comment on above: Order Comment: No: D o not add to previous draw Result Comment: Calc ulation may not be valid for patients over 70 years Performed By: #### 5 0608 #### [facility] [address] [place] [address], [place] Glucose [Mass/Vol] 149 mg/dL High 70-100 [facility] Comment on above: Order Comment: No: D o not add to previous draw Performed By: #### 5 0608 #### [facility] [address] [place] [address], [place] Potassium [Moles/Vol] 3.9 mmol/L Normal 3.5-5.1 [facility] Comment on above: Order Comment: No: D o not add to previous draw Performed By: #### 5 0608 #### [facility] [address] [place] [address], [place] Sodium [Moles/Vol] 144 mmol/L Normal 136-145 [facility] Comment on above: Order Comment: No: D o not add to previous draw Performed By: #### 5 0608 #### [facility] [address] [place] [address], [place] Urea nitrogen [Mass/Vol] 29 mg/dL High 7-25 [facility] Comment on above: Order Comment: No: D o not add to previous draw Performed By: #### 5 0608 #### [facility] [address] HEMATOCRITon 12-23-2018 Hematocrit (Bld) [Volume fraction] 28.3 % Low 36.0-45.0 [facility] Comment on above: Order Comment: No: D o not add to previous draw Performed By: #### 9 2088, 01736 ####[facility] HEMOGLOBINon 12-23-2018 Hemoglobin (Bld) [Mass/Vol] 8.2 g/dL Low 12.0-15.0 [facility] Comment on above: Order Comment: No: D o not add to previous draw Performed By: #### 9 2088, 87728 ####[facility] MAGNESIUM BLOODon 12-23-2018 Magnesium [Mass/Vol] 1.8 mg/dL Low 1.9-2.7 [facility] Comment on above: Order Comment: No: D o not add to previous draw Performed By: #### 1 0070, 86690 ####[facility] ANAon 12-22-2018 Nuclear Ab IF (S) [Titer] <1:40 Normal <1:40,1:40 [facility] Comment on above: Order Comment: No: D o not add to previous draw Performed By: #### 5 0608 #### [facility] [address] BASIC METABOLIC PANELon Calcium [Mass/Vol] 9.2 mg/dL Normal 8.6-10.3 The [facility] Comment on above: Order Comment: No: D o not add to previous draw Performed By: #### 0 0071 ####[facility] [place] [address], [facility] Chloride [Moles/Vol] 103 mmol/L Normal 98-107 [facility] Comment on above: Order Comment: No: D o not add to previous draw Performed By: #### 0 0071 ####[facility] [place] [address], [place] CO2 [Moles/Vol] 30 mmol/L Normal 21-31 [facility] Comment on above: Order Comment: No: D o not add to previous draw Performed By: #### 0 0071 ####[facility] [place] [address], [facility] Creatinine [Mass/Vol] 1.05 mg/dL Normal 0.60-1.20 The [facility] Comment on above: Order Comment: No: D o not add to previous draw Performed By: #### 0 0071 ####[facility] [place] [address], [facility] GFR/1.73 sq M predicted among blacks MDRD (S/P/Bld) [Vol rate/Area] mL/min/{1.73_m2} Normal >60 The [facility] Comment on above: Order Comment: No: D o not add to previous draw Result Comment: Calc ulation may not be valid for patients over 70 years Performed By: #### 0 0071 ####[facility] [place] [address], [facility] GFR/1.73 sq M predicted among non-blacks MDRD (S/P/Bld) [Vol rate/Area] 50 ml/min/1.73sq m Abnormal >60 [facility] Comment on above: Order Comment: No: D o not add to previous draw Result Comment: Calc ulation may not be valid for patients over 70 years Performed By: #### 0 0071 ####[facility] [id number], [facility] Glucose [Mass/Vol] 116 mg/dL High 70-100 [facility] Comment on above: Order Comment: No: D o not add to previous draw Performed By: #### 0 0071 ####[facility] [place] [address], [facility] Potassium [Moles/Vol] 3.7 mmol/L Normal 3.5-5.1 [facility] Comment on above: Order Comment: No: D o not add to previous draw Performed By: #### 0 0071 ####[facility] [place] [address], [facility] Sodium [Moles/Vol] 142 mmol/L Normal 136-145 [facility] Comment on above: Order Comment: No: D o not add to previous draw Performed By: #### 0 0071 ####[facility] [id number], [facility] Urea nitrogen [Mass/Vol] 28 mg/dL High 7-25 [facility] Comment on above: Order Comment: No: D o not add to previous draw Performed By: #### 0 0071 ####[facility] [place] [address], [facility] COMPLEMENT 3on 12-22-2018 COMPLEMENT 3 123 mg/dL Normal 79-152 [facility] Comment on above: Order Comment: Yes: Add to Previous draw if able Performed By: #### 1 7058, 36151 ####[facility] [place] [address], [facility] COMPLEMENT 4on 12-22-2018 COMPLEMENT 4 18 mg/dL Normal 16-38 [facility] Comment on above: Order Comment: Yes: Add to Previous draw if able Performed By: #### 1 0238, [id number] ####[facility] [place] [address], [facility] HEMOGLOBINon 12-22-2018 Hemoglobin (Bld) [Mass/Vol] 7.8 g/dL Low 12.0-15.0 [facility] Comment on above: Order Comment: No: D o not add to previous draw Performed By: #### 9 2089 ####[facility] [id number], [facility] PROTEIN ELECT Joseph 12-22-2018 Protein [Mass/Vol] 6.2 g/dL Normal 6.0-8.3 [facility] Comment on above: Order Comment: Yes: Add to Previous draw if able Performed By: #### 4 1661 ####[facility] [place] [address], [facility] Protein [Mass/Vol] Normal [facility] Comment on above: Order Comment: Yes: Add to Previous draw if able Result Comment: Hypo albuminemia is seen. This may be dilutional (from I.V. fluids) or nutritional in origin. Performed By: #### 4 1661 ####[facility] [place] [address], [place] BASIC METABOLIC PANELon Calcium [Mass/Vol] 9.1 mg/dL Normal 8.6-10.3 [facility] Comment on above: Order Comment: No: D o not add to previous draw Performed By: #### 1 0, [id number] ####[facility] [place] [address], [place] Chloride [Moles/Vol] 104 mmol/L Normal 98-107 [facility] Comment on above: Order Comment: No: D o not add to previous draw Performed By: #### 1 69, 36725 ####[facility] [place] [address], [place] CO2 [Moles/Vol] 30 mmol/L Normal 21-31 [facility] Comment on above: Order Comment: No: D o not add to previous draw Performed By: #### 1 0, 18710 ####[facility] [place] [address], [facility] Creatinine [Mass/Vol] 1.10 mg/dL Normal 0.60-1.20 [facility] Comment on above: Order Comment: No: D o not add to previous draw Performed By: #### 1 69, 70039 ####[facility] [place] [address], [facility] GFR/1.73 sq M predicted among blacks MDRD (S/P/Bld) [Vol rate/Area] 58 ml/min/1.73sq m Abnormal >60 [facility] Comment on above: Order Comment: No: D o not add to previous draw Result Comment: Calc ulation may not be valid for patients over 70 years Performed By: #### 1 69, 54488 ####[place] [address] [facility] [place] [address], [facility] GFR/1.73 sq M predicted among non-blacks MDRD (S/P/Bld) [Vol rate/Area] 47 ml/min/1.73sq m Abnormal >60 [facility] Comment on above: Order Comment: No: D o not add to previous draw Result Comment: Calc ulation may not be valid for patients over 70 years Performed By: #### 1 69, 81418 ####[place] [address] [place] [address], [facility] Glucose [Mass/Vol] 88 mg/dL Normal 70-100 [facility] Comment on above: Order Comment: No: D o not add to previous draw Performed By: #### 1 69, 28600 ####[facility] [facility] [place] [address], [facility] Potassium [Moles/Vol] 3.4 mmol/L Low 3.5-5.1 [facility] Comment on above: Order Comment: No: D o not add to previous draw Performed By: #### 1 69, 71282 ####[facility] [facility] [place] [place] [address], [facility] Sodium [Moles/Vol] 142 mmol/L Normal 136-145 [facility] Comment on above: Order Comment: No: D o not add to previous draw Performed By: #### 1 0070, 71272 ####[facility] [place] [address], [facility] Urea nitrogen [Mass/Vol] 33 mg/dL High 7-25 [facility] Comment on above: Order Comment: No: D o not add to previous draw Performed By: #### 1 0, 84479 ####[facility] [facility] [place] [address], [facility] HEMOGLOBINon 12-21-2018 Hemoglobin (Bld) [Mass/Vol] 7.7 g/dL Low 12.0-15.0 [facility] Comment on above: Order Comment: No: D o not add to previous draw Performed By: #### 0 0071 #### [facility] [address] [place] [address], [facility] MAGNESIUM BLOODon 12-21-2018 Magnesium [Mass/Vol] 1.8 mg/dL Low 1.9-2.7 [facility] Comment on above: Order Comment: No: D o not add to previous draw Performed By: #### 1 0, 33002 ####[facility] [place] [address], [facility] BASIC METABOLIC PANELon Calcium [Mass/Vol] 9.3 mg/dL Normal 8.6-10.3 [facility] Comment on above: Order Comment: No: D o not add to previous draw Performed By: #### 0 0071 #### [facility] [address] [place] [id number], [facility] Chloride [Moles/Vol] 102 mmol/L Normal 98-107 [facility] Comment on above: Order Comment: No: D o not add to previous draw Performed By: #### 0 0071 #### [facility] [address] [place] [address], [place] CO2 [Moles/Vol] 32 mmol/L High 21-31 [facility] Comment on above: Order Comment: No: D o not add to previous draw Performed By: #### 0 0071 #### [facility] [address] [place] [address], [place] Creatinine [Mass/Vol] 1.10 mg/dL Normal 0.60-1.20 [facility] Comment on above: Order Comment: No: D o not add to previous draw Performed By: #### 0 0071 #### [facility] [address] [place] [address], [place] GFR/1.73 sq M predicted among blacks MDRD (S/P/Bld) [Vol rate/Area] 58 ml/min/1.73sq m Abnormal >60 [facility] Comment on above: Order Comment: No: D o not add to previous draw Result Comment: Calc ulation may not be valid for patients over 70 years Performed By: #### 0 0071 #### [facility] [address] [place] [address], [place] GFR/1.73 sq M predicted among non-blacks MDRD (S/P/Bld) [Vol rate/Area] 47 ml/min/1.73sq m Abnormal >60 [facility] Comment on above: Order Comment: No: D o not add to previous draw Result Comment: Calc ulation may not be valid for patients over 70 years Performed By: #### 0 0071 #### [facility] [address] [place] [address], [place] Glucose [Mass/Vol] 120 mg/dL High 70-100 [facility] Comment on above: Order Comment: No: D o not add to previous draw Performed By: #### 0 0071 #### [facility] [address] [place] [address], [place] Potassium [Moles/Vol] 3.3 mmol/L Low 3.5-5.1 [facility] Comment on above: Order Comment: No: D o not add to previous draw Performed By: #### 0 0071 #### [facility] [address] [place] [address], [facility] Sodium [Moles/Vol] 142 mmol/L Normal 136-145 [facility] Comment on above: Order Comment: No: D o not add to previous draw Performed By: #### 0 0071 #### [facility] [address] [place] [address], [facility] Urea nitrogen [Mass/Vol] 36 mg/dL High 7-25 [facility] Comment on above: Order Comment: No: D o not add to previous draw Performed By: #### 0 0071 #### [facility] [address] [place] [address], [facility] CBC COMPLETE BLOOD COUNTon 02-19-2018 Erythrocyte distribution width (RBC) [Ratio] 15.8 % High 11.5-15.0 [facility] Comment on above: Order Comment: No: D o not add to previous draw Performed By: #### 0 0071 #### [facility] [address] [place] [address], [facility] Hematocrit (Bld) [Volume fraction] 25.4 % Low 36.0-45.0 [facility] Comment on above: Order Comment: No: D o not add to previous draw Performed By: #### 0 0071 #### [facility] [address] [place] [address], [facility] Hemoglobin (Bld) [Mass/Vol] 7.8 g/dL Low 12.0-15.0 [facility] Comment on above: Order Comment: No: D o not add to previous draw Performed By: #### 0 0071 #### [facility] [address] [place] [address], [facility] MCH (RBC) [Entitic mass] 27.1 pg Normal 27.0-33.0 [facility] Comment on above: Order Comment: No: D o not add to previous draw Performed By: #### 0 0071 #### [facility] [address] [place] [address], [facility] MCHC (RBC) [Mass/Vol] 30.7 g/dL Low 32.0-35.0 [facility] Comment on above: Order Comment: No: D o not add to previous draw Performed By: #### 0 0071 #### [facility] [address] [place] [address], [facility] MCV (RBC) [Entitic vol] 88.2 fL Normal 82.0-98.0 [facility] Comment on above: Order Comment: No: D o not add to previous draw Performed By: #### 0 0071 #### [facility] [address] [facility] [address], [facility] Nucleated RBC/100 WBC (Bld) [Ratio] 0 % Normal 0-0 [facility] Comment on above: Order Comment: No: D o not add to previous draw Performed By: #### 0 0071 #### [facility] [address] [place] [address], [facility] PLAT CNT 227 10*3/uL Normal 150-400 [facility] Comment on above: Order Comment: No: D o not add to previous draw Performed By: #### 0 0071 #### [facility] [address] [place] [address], [facility] RBC (Bld) [#/Vol] 2.88 10*6/uL Low 3.80-5.00 [facility] Comment on above: Order Comment: No: D o not add to previous draw Performed By: #### 0 0071 #### [facility] [address] [place] [address], [facility] WBC (Bld) [#/Vol] 8.61 10*3/uL Normal 4.00-10.60 [facility] Comment on above: Order Comment: No: D o not add to previous draw Performed By: #### 0 0071 #### [facility] [address] [place] [address], [facility] MAGNESIUM BLOODon 12-20-2018 Magnesium [Mass/Vol] 1.9 mg/dL Normal 1.9-2.7 [facility] Comment on above: Order Comment: No: D o not add to previous draw Performed By: #### 0 0071 #### [facility] [address] [place] [address], [facility] BASIC METABOLIC PANELon Calcium [Mass/Vol] 9.2 mg/dL Normal 8.6-10.3 [facility] Comment on above: Order Comment: No: D o not add to previous draw Performed By: #### 5 0608 #### [facility] [address] [place] [address], [facility] Chloride [Moles/Vol] 103 mmol/L Normal 98-107 [facility] Comment on above: Order Comment: No: D o not add to previous draw Performed By: #### 5 0608 #### [facility] [address] [place] [address], [facility] CO2 [Moles/Vol] 30 mmol/L Normal 21-31 [facility] Comment on above: Order Comment: No: D o not add to previous draw Performed By: #### 5 0608 #### [facility] [address] [place] [address], [facility] Creatinine [Mass/Vol] 1.27 mg/dL High 0.60-1.20 [facility] Comment on above: Order Comment: No: D o not add to previous draw Performed By: #### 5 0608 #### [facility] [address] [place] [address], [facility] GFR/1.73 sq M predicted among blacks MDRD (S/P/Bld) [Vol rate/Area] 49 ml/min/1.73sq m Abnormal >60 [facility] Comment on above: Order Comment: No: D o not add to previous draw Result Comment: Calc ulation may not be valid for patients over 70 years Performed By: #### 5 0608 #### [facility] [address] [place] [address], [place] GFR/1.73 sq M predicted among non-blacks MDRD (S/P/Bld) [Vol rate/Area] 41 ml/min/1.73sq m Abnormal >60 [facility] Comment on above: Order Comment: No: D o not add to previous draw Result Comment: Calc ulation may not be valid for patients over 70 years Performed By: #### 5 0608 #### [facility] [address] [place] [address], [place] Glucose [Mass/Vol] 162 mg/dL High 70-100 [facility] Comment on above: Order Comment: No: D o not add to previous draw Performed By: #### 5 0608 #### [facility] [address] [place] [address], [place] Potassium [Moles/Vol] 4.2 mmol/L Normal 3.5-5.1 [facility] Comment on above: Order Comment: No: D o not add to previous draw Performed By: #### 5 0608 #### [facility] [address] [place] [address], [place] Sodium [Moles/Vol] 142 mmol/L Normal 136-145 [facility] Comment on above: Order Comment: No: D o not add to previous draw Performed By: #### 5 0608 #### [facility] [address] [place] [address], [place] Urea nitrogen [Mass/Vol] 43 mg/dL High 7-25 [facility] Comment on above: Order Comment: No: D o not add to previous draw Performed By: #### 5 0608 #### [facility] [address] [place] [address], [facility] CREATININE URINE RANDOMon Creatinine [Mass/Vol] 32.0 mg/dL Normal [facility] Comment on above: Order Comment: No: D o not add to previous draw Result Comment: Ther e are no established reference values for random urine specimens Performed By: #### 0 0071 #### [facility] [address] [place] [address], [facility] FERRITINon 12-19-2018 Ferritin [Mass/Vol] 20 ng/mL Normal 11- [facility] Comment on above: Order Comment: No: D o not add to previous draw Performed By: #### 0 0071 #### [facility] [address] [place] [address], [facility] HEMOGLOBINon 12-19-2018 Hemoglobin (Bld) [Mass/Vol] 6.8 g/dL Low 12.0-15.0 [facility] Comment on above: Order Comment: No: D o not add to previous draw Performed By: #### 5 0608 #### [facility] [address] [place] [id number], [facility] MAGNESIUM BLOODon 12-19-2018 Magnesium [Mass/Vol] 1.6 mg/dL Low 1.9-2.7 [facility] Comment on above: Order Comment: No: D o not add to previous draw Performed By: #### 0 0071 #### [facility] [address] [facility] [place] [id number], [facility] PROTEIN ELECT URon 9 Protein [Mass/Vol] 9.0 mg/dL Normal [facility] Comment on above: Order Comment: No: D o not add to previous draw Result Comment: Ther e are no established reference values for random urine specimens Performed By: #### 0 0071 #### [facility] [address] [place] [address], [facility] Protein [Mass/Vol] URINE PROTEIN ELECTROPHORESIS NOT DONE; T.P. <10 MG/DL Normal [facility] Comment on above: Order Comment: No: D o not add to previous draw Performed By: #### 0 0071 #### [facility] [address] [place] [id number], [facility] TIBC- INCLUDES IRONon 2018 FE SATURATION 8 % Low 20-50 [facility] Comment on above: Order Comment: No: D o not add to previous draw Performed By: #### 5 0608 #### [facility] [address] [place] [address], [facility] Iron [Mass/Vol] 33 ug/dL Low 50-212 [facility] Comment on above: Order Comment: No: D o not add to previous draw Performed By: #### 5 0608 #### [facility] [address] [place] [address], [facility] TIBC 431 mcg/dL Normal 250-450 [facility] Comment on above: Order Comment: No: D o not add to previous draw Performed By: #### 5 0608 #### [facility] [address] [place] [address], [facility] UIBC 398 mcg/dL High 155-355 [facility] Comment on above: Order Comment: No: D o not add to previous draw Performed By: #### 5 0608 #### [facility] [address] [place] [address], [place] UA,MICROSCOPIC REQUIREDon Appearance (U) CLEAR Normal CLEAR [facility] Comment on above: Order Comment: No: D o not add to previous draw Performed By: #### 0 0071 #### [facility] [address] [place] [address], [facility] Bilirubin [Mass/Vol] Negative Normal NEGATIVE [facility] Comment on above: Order Comment: No: D o not add to previous draw Performed By: #### 0 0071 #### [facility] [address] [place] [address], [place] BLOOD Negative Normal NEGATIVE [facility] Comment on above: Order Comment: No: D o not add to previous draw Performed By: #### 0 0071 #### [facility] [address] [place] [address], [facility] Color (U) STRAW Abnormal YELLOW [facility] Comment on above: Order Comment: No: D o not add to previous draw Performed By: #### 0 0071 #### [facility] [address] [place] [address], [facility] EPIS MOD Abnormal FEW,OCC,NONE SEEN [facility] Comment on above: Order Comment: No: D o not add to previous draw Performed By: #### 0 0071 #### [facility] [address] [place] [address], [place] Glucose [Mass/Vol] Negative Normal NEGATIVE [facility] Comment on above: Order Comment: No: D o not add to previous draw Performed By: #### 0 0071 #### [facility] [address] [place] [address], [place] HYALINE CASTS 2 /LPF Abnormal NONE SEEN [facility] Comment on above: Order Comment: No: D o not add to previous draw Performed By: #### 0 0071 #### [facility] [address] [place] [address], [place] KETONE Negative Normal NEGATIVE [facility] Comment on above: Order Comment: No: D o not add to previous draw Performed By: #### 0 0071 #### [facility] [address] [place] [address], [place] LEUK ARASH Negative Normal NEGATIVE [facility] Comment on above: Order Comment: No: D o not add to previous draw Performed By: #### 0 0071 #### [facility] [address] [place] [address], [place] Nitrite Ql (U) Negative Normal NEGATIVE [facility] Comment on above: Order Comment: No: D o not add to previous draw Performed By: #### 0 0071 #### [facility] [address] [place] [address], [facility] pH (Bld) 6.0 Normal 5.0-8.0 [facility] Comment on above: Order Comment: No: D o not add to previous draw Performed By: #### 0 0071 #### [facility] [address] [place] [address], [facility] Protein [Mass/Vol] Negative Normal NEGATIVE [facility] Comment on above: Order Comment: No: D o not add to previous draw Performed By: #### 0 0071 #### [facility] [address] [place] [place] [address], [facility] RBC (Bld) [#/Vol] 0-2 Abnormal NONE SEEN [facility] Comment on above: Order Comment: No: D o not add to previous draw Performed By: #### 0 0071 #### [address] SPEC GRAV 1.008 Low 1.015-1.020 [facility] Comment on above: Order Comment: No: D o not add to previous draw Performed By: #### 0 0071 #### [address] [address], [facility] WBC UA 0-2 Abnormal NONE SEEN [facility] Comment on above: Order Comment: No: D o not add to previous draw Performed By: #### 0 0071 #### [address] [address], [facility] US RENALon 12-19-2018 US RENAL [facility] Department of Radiology [address] [place] [phone] == Patient Name: JENIFER HERNANDEZ : 1940 Sex: F Age: Race: NA Pt. Location: [id number] Patient Status: I Ordered Date: 12/19/2018 1:20:00 [...] findings. Electronically signed by:Tyree Momin. Transcribed by: [email or web address], User Resident: JOSE CHASE Electronically Signed by: TYREE MOMIN @ 12/20/2018 03:17 PM I personally read this/these film(s) with this resident Normal [facility] Comment on above: Order Comment: No: D o not add to previous draw ANTI C3 DATon 12-18-2018 ANTI C3 SOUTH Negative Normal [facility] Comment on above: Performed By: #### 5 0608 #### [facility] [address] [place] [address], [place] ANTI IGG DATon 12-18-2018 ANTI IGG SOUTH Negative Normal [facility] Comment on above: Performed By: #### 5 0608 #### [facility] [address] [place] [address], [place] ANTIBODY IDENTIFICATIONon ANTIBODY ID C Normal [facility] Comment on above: Performed By: #### 5 0608 #### [facility] [address] [place] [address], [place] BASIC METABOLIC PANELon 11-20 Calcium [Mass/Vol] 9.2 mg/dL Normal 8.6-10.3 [facility] Comment on above: Order Comment: No: D o not add to previous draw Performed By: #### 0 0071, 82155, 85478, 30836 #### [facility] [address] [place] [address], [place] Chloride [Moles/Vol] 98 mmol/L Normal 98-107 [facility] Comment on above: Order Comment: No: D o not add to previous draw Performed By: #### 0 0071, 95140, 26094, 81804 #### [facility] [address] [place] [address], [place] CO2 [Moles/Vol] 30 mmol/L Normal 21-31 [facility] Comment on above: Order Comment: No: D o not add to previous draw Performed By: #### 0 0071, 11083, 06310, 26244 #### [facility] [address] [place] [address], [place] Creatinine [Mass/Vol] 1.59 mg/dL High 0.60-1.20 [facility] Comment on above: Order Comment: No: D o not add to previous draw Performed By: #### 0 0071, 67510, 57230, 31997 #### [facility] [address] [place] [address], [facility] GFR/1.73 sq M predicted among blacks MDRD (S/P/Bld) [Vol rate/Area] 38 ml/min/1.73sq m Abnormal >60 [facility] Comment on above: Order Comment: No: D o not add to previous draw Result Comment: Calc ulation may not be valid for patients over 70 years Performed By: #### 0 0071, 49529, 07582, 99671 #### [facility] [address] [place] [address], [facility] GFR/1.73 sq M predicted among non-blacks MDRD (S/P/Bld) [Vol rate/Area] 31 ml/min/1.73sq m Abnormal >60 [facility] Comment on above: Order Comment: No: D o not add to previous draw Result Comment: Calc ulation may not be valid for patients over 70 years Performed By: #### 0 0071, 08827, 18121, 79540 #### [facility] [address] [place] [address], [place] Glucose [Mass/Vol] 115 mg/dL High 70-100 [facility] Comment on above: Order Comment: No: D o not add to previous draw Performed By: #### 0 0071, 86439, 33771, 32105 #### [facility] [address] [place] [address], [place] Potassium [Moles/Vol] 3.1 mmol/L Low 3.5-5.1 [facility] Comment on above: Order Comment: No: D o not add to previous draw Performed By: #### 0 0071, 39922, 39089, 56749 #### [facility] [address] [place] [address], [place] Sodium [Moles/Vol] 137 mmol/L Normal 136-145 [facility] Comment on above: Order Comment: No: D o not add to previous draw Performed By: #### 0 0071, 18347, 34088, 82541 #### [facility] [address] [place] [address], [facility] Urea nitrogen [Mass/Vol] 53 mg/dL High 7-25 [facility] Comment on above: Order Comment: No: D o not add to previous draw Performed By: #### 0 0071, 76168, 83704, 04309 #### [facility] [address] [place] [address], [facility] CBC COMPLETE BLOOD COUNTon Erythrocyte distribution width (RBC) [Ratio] 15.9 % High 11.5-15.0 [facility] Comment on above: Order Comment: No: D o not add to previous draw Performed By: #### 5 0608 #### [facility] [address] [place] [address], [facility] Hematocrit (Bld) [Volume fraction] 21.4 % Low 36.0-45.0 [facility] Comment on above: Order Comment: No: D o not add to previous draw Performed By: #### 5 0608 #### [facility] [address] [place] [address], [facility] Hemoglobin (Bld) [Mass/Vol] 6.5 g/dL Low 12.0-15.0 [facility] Comment on above: Order Comment: No: D o not add to previous draw Performed By: #### 5 0608 #### [facility] [address] [place] [address], [facility] MCH (RBC) [Entitic mass] 26.5 pg Low 27.0-33.0 [facility] Comment on above: Order Comment: No: D o not add to previous draw Performed By: #### 5 0608 #### [facility] [address] [place] MCHC (RBC) [Mass/Vol] 30.4 g/dL Low 32.0-35.0 [facility] Comment on above: Order Comment: No: D o not add to previous draw Performed By: #### 5 0608 #### [facility] [address] [place] [address], [facility] MCV (RBC) [Entitic vol] 87.3 fL Normal 82.0-98.0 [facility] Comment on above: Order Comment: No: D o not add to previous draw Performed By: #### 5 0608 #### [facility] [address] [address], [facility] Nucleated RBC/100 WBC (Bld) [Ratio] 0 % Normal 0-0 [facility] Comment on above: Order Comment: No: D o not add to previous draw Performed By: #### 5 0608 #### [facility] [address] [address], [facility] PLAT CNT 232 10*3/uL Normal 150-400 [facility] Comment on above: Order Comment: No: D o not add to previous draw Performed By: #### 5 0608 #### [facility] [address] [facility] [place] [address], [facility] RBC (Bld) [#/Vol] 2.45 10*6/uL Low 3.80-5.00 [facility] Comment on above: Order Comment: No: D o not add to previous draw Performed By: #### 5 0608 #### [facility] [address] [place] [address], [facility] WBC (Bld) [#/Vol] 7.40 10*3/uL Normal 4.00-10.60 [facility] Comment on above: Order Comment: No: D o not add to previous draw Performed By: #### 5 0608 #### [facility] [address] [place] [address], [facility] Cardiovascular Lab Reporton 12-18-2018 Cardiovascular Lab Report [facility] Patient Name: Jimmie [facility] MR #: [id number] Physician: Herber Bravo of [facility] Service Date: 12/17/2018 Division of Birthdate: 1940 Cardiology Room #: 3CD [id number] Adult Cardiovascular Services [facility] [address] [facility]. [place] [address] Cardiovascular Laboratory Report INDICATION: The patient is [...] signed informed consent. She was brought to candlemaking laborer in a fasting state. The right neck area was prepped and draped in usual fashion. Using ultrasound guidance and micropuncture technique, the right internal jugular vein was accessed. A 6-Greek x 11 cm sheath was placed. A 6-Greek Thompson catheter was used for right heart [...] A/Herber Allen M.D. Date Trans: 12/18/2018 08:22 A/sha [id number] cc: Edu Odonnell D.O. [address] [place] [address] Roger Donnelly [facility] [address] [place] [facility] HEMOGLOBINon 12-18-2018 Hemoglobin (Bld) [Mass/Vol] 7.3 g/dL Low 12.0-15.0 [facility] Comment on above: Order Comment: No: D o not add to previous draw Performed By: #### 5 0608 #### [facility] [address] Hemoglobin (Bld) [Mass/Vol] 7.2 g/dL Low 12.0-15.0 [facility] Comment on above: Order Comment: No: D o not add to previous draw Performed By: #### 5 0608 #### [facility] [address] Hemoglobin (Bld) [Mass/Vol] 6.9 g/dL Low 12.0-15.0 [facility] Comment on above: Order Comment: No: D o not add to previous draw Performed By: #### 9 2089 #### [facility] [address] IRON BLOODon 12-18-2018 Iron [Mass/Vol] 19 ug/dL Low 50-212 [facility] Comment on above: Order Comment: No: D o not add to previous draw Performed By: #### 0 0071, 76527, 33242, 01796 #### [facility] [address] [place] [address], [facility] MAGNESIUM BLOODon 12-18-2018 Magnesium [Mass/Vol] 1.8 mg/dL Low 1.9-2.7 [facility] Comment on above: Order Comment: No: D o not add to previous draw Performed By: #### 0 0071, 22912, 56638, 68817 #### [facility] [address] [place] [address], [facility] PHOSPHORUS BLOODon 9 Phosphate [Mass/Vol] 3.1 mg/dL Normal 2.5-5.0 [facility] Comment on above: Order Comment: No: D o not add to previous draw Performed By: #### 0 0071, 60916, 69146, 61846 #### [facility] [address] [address], [facility] RBC'S 2 UNITSon 12-18-2018 CROSSMATCH INTERP 1 COMP Normal [facility] Comment on above: Performed By: #### 5 0608 #### [facility] [address] [facility] [place] [address], [facility] CROSSMATCH INTERP 2 COMP Normal [facility] Comment on above: Performed By: #### 5 0608 #### [facility] [address] [facility] [address], [facility] PRODUCT CODE 1 E0336 Normal [facility] Comment on above: Performed By: #### 5 0608 #### [facility] [address] [place] [place] [address], [facility] PRODUCT CODE 2 E0336 Normal [facility] Comment on above: Performed By: #### 5 0608 #### [facility] [address] [place] [address], [facility] PRODUCT STATUS 1 PT Normal [facility] Comment on above: Result Comment: Resu lt changed by IF on 12/19/2018 09:14. The previous value was XM. Result changed by IF on 12/20/2018 00:30. The previous value was IS. Performed By: #### 5 0608 #### [facility] [address] [place] [address], [place] PRODUCT STATUS 2 RE Normal [facility] Comment on above: Result Comment: Resu lt changed by IF on 12/22/2018 07:27. The previous value was XM. Performed By: #### 5 0608 #### [facility] [address] [place] [address], [place] UNIT ABO 1 A Normal [facility] Comment on above: Performed By: #### 5 0608 #### [facility] [address] [place] [address], [place] UNIT ABO 2 A Normal [facility] Comment on above: Performed By: #### 5 0608 #### [facility] [address] [place] [address], [place] UNIT ID 1 [id number] Normal [facility] Comment on above: Performed By: #### 5 0608 #### [facility] [address] [place] [address], [place] UNIT ID 2 [id number] Normal [facility] Comment on above: Performed By: #### 5 0608 #### [facility] [address] [place] [address], [place] UNIT RH 1 Negative Normal [facility] Comment on above: Performed By: #### 5 0608 #### [facility] [address] [place] [address], [place] UNIT RH 2 Negative Normal [facility] Comment on above: Performed By: #### 5 0608 #### [facility] [address] [place] [address], [place] TYPE AND SCREENon 12-18-2018 ABO INTERPRETATION A Normal [facility] Comment on above: Performed By: #### 5 0608 #### [facility] [address] [place] [address], [facility] RH INTERPRETATION Positive Normal [facility] Comment on above: Performed By: #### 5 0608 #### [facility] [address] [place] [address], [facility] BASIC METABOLIC PANELon 11-20 Calcium [Mass/Vol] 9.5 mg/dL Normal 8.6-10.3 [facility] Comment on above: Order Comment: No: D o not add to previous draw Performed By: #### 0 0071 #### [facility] [address] [place] [address], [facility] Chloride [Moles/Vol] 95 mmol/L Low 98-107 [facility] Comment on above: Order Comment: No: D o not add to previous draw Performed By: #### 0 0071 #### [facility] [address] [place] [address], [facility] CO2 [Moles/Vol] 29 mmol/L Normal 21-31 [facility] Comment on above: Order Comment: No: D o not add to previous draw Performed By: #### 0 0071 #### [facility] [address] [place] [address], [facility] Creatinine [Mass/Vol] 2.01 mg/dL High 0.60-1.20 [facility] Comment on above: Order Comment: No: D o not add to previous draw Performed By: #### 0 0071 #### [facility] [address] [place] [id number], [facility] GFR/1.73 sq M predicted among blacks MDRD (S/P/Bld) [Vol rate/Area] 29 ml/min/1.73sq m Abnormal >60 [facility] Comment on above: Order Comment: No: D o not add to previous draw Result Comment: Calc ulation may not be valid for patients over 70 years Performed By: #### 0 0071 #### [facility] [address] [place] [address], [facility] GFR/1.73 sq M predicted among non-blacks MDRD (S/P/Bld) [Vol rate/Area] 24 ml/min/1.73sq m Abnormal >60 [facility] Comment on above: Order Comment: No: D o not add to previous draw Result Comment: Calc ulation may not be valid for patients over 70 years Performed By: #### 0 0071 #### [facility] [address] [place] [address], [place] Glucose [Mass/Vol] 125 mg/dL High 70-100 [facility] Comment on above: Order Comment: No: D o not add to previous draw Performed By: #### 0 0071 #### [facility] [address] [place] [address], [place] Potassium [Moles/Vol] 2.8 mmol/L Low 3.5-5.1 [facility] Comment on above: Order Comment: No: D o not add to previous draw Performed By: #### 0 0071 #### [facility] [address] [place] [address], [place] Sodium [Moles/Vol] 135 mmol/L Low 136-145 [facility] Comment on above: Order Comment: No: D o not add to previous draw Performed By: #### 0 0071 #### [facility] [address] [place] [address], [place] Urea nitrogen [Mass/Vol] 62 mg/dL High 7-25 [facility] Comment on above: Order Comment: No: D o not add to previous draw Performed By: #### 0 0071 #### [facility] [address] [place] [address], [place] CBC COMPLETE BLOOD COUNTon Erythrocyte distribution width (RBC) [Ratio] 15.8 % High 11.5-15.0 [facility] Comment on above: Order Comment: No: D o not add to previous draw Performed By: #### 5 0608 #### [facility] [address] [place] [address], [facility] Hematocrit (Bld) [Volume fraction] 24.7 % Low 36.0-45.0 [facility] Comment on above: Order Comment: No: D o not add to previous draw Performed By: #### 5 0608 #### [facility] [address] [place] [address], [facility] Hemoglobin (Bld) [Mass/Vol] 7.5 g/dL Low 12.0-15.0 [facility] Comment on above: Order Comment: No: D o not add to previous draw Performed By: #### 5 0608 #### [facility] [address] [place] [address], [facility] MCH (RBC) [Entitic mass] 26.8 pg Low 27.0-33.0 [facility] Comment on above: Order Comment: No: D o not add to previous draw Performed By: #### 5 0608 #### [facility] [address] [place] [address], [facility] MCHC (RBC) [Mass/Vol] 30.4 g/dL Low 32.0-35.0 [facility] Comment on above: Order Comment: No: D o not add to previous draw Performed By: #### 5 0608 #### [facility] [address] [place] [id number], [facility] MCV (RBC) [Entitic vol] 88.2 fL Normal 82.0-98.0 [facility] Comment on above: Order Comment: No: D o not add to previous draw Performed By: #### 5 0608 #### [facility] [address] [place] [address], [facility] Nucleated RBC/100 WBC (Bld) [Ratio] 0 % Normal 0-0 [facility] Comment on above: Order Comment: No: D o not add to previous draw Performed By: #### 5 0608 #### [facility] [address] [place] [address], [facility] PLAT CNT 260 10*3/uL Normal 150-400 [facility] Comment on above: Order Comment: No: D o not add to previous draw Performed By: #### 5 0608 #### [facility] [address] [place] [address], [facility] RBC (Bld) [#/Vol] 2.80 10*6/uL Low 3.80-5.00 [facility] Comment on above: Order Comment: No: D o not add to previous draw Performed By: #### 5 0608 #### [facility] [address] [place] [address], [facility] WBC (Bld) [#/Vol] 8.14 10*3/uL Normal 4.00-10.60 [facility] Comment on above: Order Comment: No: D o not add to previous draw Performed By: #### 5 0608 #### [address] CHEST AND LATERALon 12-18-19 19 CHEST AND LATERAL [facility] Department of Radiology [address] [place] [id number] == Patient Name: JENIFER HERNANDEZ : [...] lungs Electronically signed by:Dori Olson. Transcribed by: [email or web address], User Resident: Electronically Signed by: DORI OLSON @ 12/17/2018 01:43 PM Normal [facility] Comment on above: Order Comment: R/O E ffusion History and Physicalon 12-17 History and Physical MR#: [id number] [facility] Pt. Name: Jenifer Hernandez Admitted: 12/17/2018 Date of : 1940 Attending Physician: Beverly Brock MD Room #: 3CD [id number] Discharge Date: HISTORY AND PHYSICAL CHIEF COMPLAINT: Shortness of breath. HISTORY OF PRESENT ILLNESS: This is an 78-year-old female with past medical history significant for diastolic congestive heart failure, history of coronary artery disease status post remote CABG, history of gastric/duodenal ulcer disease, and history of chronic atrial fibrillation, on Xarelto. The patient was evaluated with her upkeep worker recently for increased shortness of breath on simple daily activities like walking few steps from the garage to her home. She was found to be in exacerbation of her diastolic heart failure and her diuretic dosage was increased. She was sent to [facility] for an elective right heart catheterization which [...] for that she was seen by a sales recruiting coordinator. She thinks that she had an EGD [...] Brock MD Date Trans: 12/17/2018 12:28 P/sha [id number] Normal [facility] Encounters Encounter Date Encounter Type Care Provider Facility Start: 10-14-2023 End: 10-14-2023 ambulatory SHELL SANDOVAL Not Available Start: 09-25-2023 End: 09-25-2023 ambulatory [facility] Start: 09-10-2023 End: 09-10-2023 ambulatory [facility] Start: 06-14-2023 End: 06-14-2023 ambulatory [facility] Start: 05-21-2023 End: 05-21-2023 ambulatory SHAIKH KB Not Available Start: 05-06-2023 End: 05-06-2023 ambulatory HERBER ALLEN [facility] Start: 04-25-2023 End: 04-25-2023 ambulatory SHAIKH KB Not Available Start: 01-31-2022 End: 02-01-[address] HERBER ALLEN Facility:[facility] Start: 01-18-2022 End: 01-18-2022 ambulatory PETR LUGO Facility:[facility] Start: 12-21-2021 End: 12-21-2021 ambulatory PETR LUGO Facility:[facility] Start: 11-15-[address] EDU ODONNELL Facilghada ty:[facility] Start: 10-18-2021 End: 10-19-[address] EDU ODONNELL Facility:[facility] Start: 08-22-[address] EDU ODONNELL Facili ty:[facility] Start: 08-18-2021 End: 08-19-2021 ambulatory LOGAN MORAN Facility:[facility] Start: 03-28-2021 End: 03-29-[address] DOCTOR LEGER Facility:[facility] Start: 03-07-2021 End: 03-08-2021 ambulatory LOGAN MORAN Facility:[facility] Start: 01-05-2019 End: 01-14-2019 Evaluation and management of inpatient KENNEDI MARSHALL Facility:[facility] Start: 12-17-2018 End: 12-24-2018 Evaluation and management of inpatient EDU ODONNELL Facility:[facility] Procedures Date Procedure Procedure Detail Performing Clinician Start: 01-12-2019 Rastafari of Cardi ac Rhythm, Single MOSHRIK ABD [...] above: Performed By: #### 5 0608 #### [address] [place] [address], [facility] Start: 12-17-2018 MEASURE OF CARDIAC S AMPL \T\ PRESSURE, R HEART, PERC APPROACH HERBER RANDLEDUZULLY Start: 12-17-2018 MEASUREMENT OF ARTER IAL FLOW, PULMONARY, PERC APPROACH HERBER V YARIELDARONZULLY Payers Date Payer Category Payer Medicare [id number] 1961 Self-pay 1961 Unknown [id number] 1940 Unknown [id number] 2.16.8 [id number] 1940 Unknown [id number] 2.16.8 40.1.903229.3.579.2.647 1940 Unknown [id number] 2.16.84 0.1.552021.3.579.2.593 1940 Unknown [id number] 2.16.84 0.1.406319.3.579.2.593 1938 Unknown [id number] 2.16.84 0.1.095125.3.579.2.593 1938 Unknown [id number] 2.16.84 0.1.625783.3.579.2.593 1938 Unknown [id number] 2.16.84 0.1.084735.3.579.2.593 1938 Unknown [id number] 2.16.84 0.1.096911.3.579.2.593 1938 Unknown [id number] 2.16.84 0.1.240185.3.579.2.593 1938 Unknown [id number] 2.16.84 0.1.896654.3.579.2.593 1938 Unknown [id number] 2.16.84 0.1.578029.3.579.2.593 1938 Unknown [id number] 2.16.84 0.1.898572.3.579.2.1259 1938 Unknown [id number] 2.16.84 0.1.262494.3.579.2.1259 1938 Unknown [id number] 2.16.84 0.1.194656.3.579.2.1259 Progress note 09-25-2023 Note Date & Type Note Facility 09-25-2023 Note [place] [facility] Subjective Jenifer Hernandez is a 83 y.o. year old female patient being seen for follow up ADWOA and RHC. SOB w/ exertion and LE edema has resolved she says. Denies chest pain, palpitations, and bleeding on Xarelto. Had BMP last week. Patient Active Problem List Diagnosis Chronic atrial fibrillation (CMS/HCC) Chronic diastolic congestive heart failure (CMS/HCC) Coronary artery disease involving te-moak coronary artery of te-moak heart without angina pectoris History of coronary artery bypass graft Pulmonary HTN (CMS/HCC) Nonrheumatic tricuspid valve regurgitation Mitral valve regurgitation Chronic fatigue Establishing care with new doctor, encounter for HTN (hypertension) Hypercholesteremia Hypertensive heart disease with heart failure (CMS/HCC) Shortness of breath CKD (chronic kidney disease) Pulmonary hypertension (CMS/HCC) Family History Problem Relation Name Age of [...] respond to it. She was admitted to [facility] with decompensated HF in 05/2018. Update 11/03/2018: [...] pressures. No pericardial effusion. The echocardiographic picture (more content not included)... [facility] Clinical Note 09-10-2023 Note Date & Type Note Facility 09-10-2023 Note Patient: Jenifer lorenz Procedure Information Date/Time: 09/10/23 1300 Procedure: Right heart cath - pc approved with [facility] Location: [facility] / [facility] (Cath) Providers: Herber Allen MD Clinical information reviewed: Allergies Meds Physical Exam Airway Mallampati: II TM distance: >3 FB Neck ROM: full Cardiovascular Rhythm: regular Rate: normal Dental Pulmonary Abdominal Anesthesia Plan ASA 3 other (Conscious sedation.) Anesthetic plan and risks discussed with patient. Use of blood products discussed with patient who consented to blood products. Additional Equipment Requests [facility] Progress note 06-14-2023 Note Date & Type Note Facility 06-14-2023 Note [place] [facility] Subjective Jenifer Hernandez is a 83 y.o. year old female patient being seen for Follow-up (1 month- stress/echo) Patient Active Problem List Diagnosis Chronic atrial fibrillation (CMS/HCC) Chronic diastolic congestive heart failure (CMS/HCC) Coronary artery disease involving te-moak coronary artery of te-moak heart without angina pectoris History of coronary [...] respond to it. She was admitted to [facility] with decompensated HF in 05/2018. Update 11/03/2018: [...] exert (more content not included)... [facility] Progress note 05-06-2023 Note Date & Type Note Facility 05-06-2023 Note [place] [facility] Donna Hernandez is a 82 y.o. year old [...] heart failure (CMS/HCC) Coronary artery disease involving te-moak coronary artery of te-moak heart without angina pectoris History of coronary [...] respond to it. She was admitted to [facility] with decompensated HF in 05/2018. Update 11/03/2018: [...] Normal (more content not included)... [facility] Clinical Note 01-18-2022 Note Date & Type [...] ensuring mobility, phacoemulsification was performed in a jaaheuf-[id number]-jrqjdn-type fashion. After all nuclear material had been [...] following day for postoperative care. [facility] Clinical Note 01-18-2022 Note Date & [...] forward with her elective procedure. [facility] Clinical Note 12-21-2021 Note Date & [...] forward with her elective procedure. [facility] Clinical Note 12-21-2021 Note Date & [...] ensuring mobility, phacoemulsification was performed in a owbryos-koz-fzdawz-type fashion. After all nuclear material had been [...] following day for postoperative care. [facility] Summary Purpose Family History No Family History Records FoundNo Family History Records FoundNo Family History Records FoundNo Family History Records FoundNo Family History Records Found Advance Directives No Advanced Directives Records FoundNo Advanced Directives Records FoundNo Advanced Directives Records FoundNo Advanced Directives Records FoundNo Advanced Directives Records Found Hospital Course Note MR#: [id number] [facility] Pt. Name: Jenifer Hernandez Admitted: 12/17/2018 [...] content not included)... Note MR#: [id number] [facility]. Name: Jenifer Hernandez Admitted: 01/05/2019 Discharged: 01/14/2019 Date of : 1940 Physician: Amy Head MD DISCHARGE SUMMARY PRIMARY CARE PHYSICIAN: Edu Odonnell. ADMITTING DIAGNOSES: 1. Acute kidney injury on chronic kidney disease. 2. Drug-induced symptomatic severe bradycardia with hemodynamic compromise. DISCHARGE DIAGNOSES: 1. Drug-induced symptomatic severe bradycardia with hemodynamic compromise. 2. 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 Jhbxa-hv-tjojlha biventricular systolic and diastolic heart failure exacerbation. [...] not included)... Note MR#: [id number] [facility] Pt. Name: Jenifer Hernandez Surgery Date: 12/19/2018 Room #: 3CD [id number] Date of : 1940 PROCEDURE NOTE ATTENDING: [...] Procedure Findings Note MR#: [id number] [facility] Pt. Name: Jenifer Hernandez Surgery Date: 12/19/2018 Room #: [id number] Date of : 1940 PROCEDURE NOTE ATTENDING: [...] and content) DATE CREATED AUTHOR 04/10/2019 [facility] DATE CREATED AUTHOR AUTHOR'S ORGANIZ ATION 05/07/2021 [facility] DATE CREATED AUTHOR AUTHOR'S ORGANIZ ATION 02/07/2022 [facility] DATE CREATED AUTHOR AUTHOR'S ORGANIZ ATION 09/30/2023 [facility] DATE CREATED AUTHOR AUTHOR'S CHRISTOPHE POLO 10/15/2023 [facility] EPIC FOR RECORDS PERTAINING TO PATIENTS WHO ARE [...] BE BASED ON THE PRIMARY CLINICAL RECORDS. [facility] [employer] provides no warranty or guarantee of the accuracy or completeness of information in this document.
== END 2023-11-29 12:37 | disposition home or self-care (01) ==
LOC: CARD 12:36
PROVIDERS: PCP Internal Medicine; Visit Provider Internal Medicine Interventional Cardiology
DX: I50.32 Chronic diastolic (congestive) heart failure (principal); I27.20 Pulmonary hypertension, unspecified; I34.0 Nonrheumatic mitral (valve) insufficiency; I36.1 Nonrheumatic tricuspid (valve) insufficiency
CPT/HCPCS: 93306

== ENCOUNTER 2023-12-18 12:36 | Outpatient (OUT) | payer MEDICARE, OTHER, SELFPAY ==
[2023-12-18 13:15] LABS: Anion Gap 13.5; BUN Creatinine Ratio 20.8; Calcium 9.2 mg/dL (8.5-10.1); Carbon Dioxide 31.4 mmol/L (21.0-32.0); Chloride 102 mmol/L (98-107); Estimated GFR (African America 35 (>=60 mL/min/1.73m^2); Estimated GFR (Non-African Ame 29 (>=60 mL/min/1.73m^2); Glucose 137 mg/dL (74-106); Potassium 3.9 mmol/L (3.5-5.1); Sodium 143 mmol/L (136-145)
== END 2023-12-18 12:37 | disposition home or self-care (01) ==
LOC: LAB 12:41
PROVIDERS: PCP Internal Medicine; Visit Provider Internal Medicine Interventional Cardiology
DX: I11.0 Hypertensive heart disease with heart failure (principal)
CPT/HCPCS: 36415; 80048

== ENCOUNTER 2023-12-26 14:37 | Outpatient (OUT) | payer MEDICARE, OTHER, SELFPAY ==
[2023-12-26 14:56] LABS: Anion Gap 10.9; BUN Creatinine Ratio 22.1; Calcium 9.6 mg/dL (8.5-10.1); Carbon Dioxide 33.4 mmol/L (21.0-32.0); Chloride 102 mmol/L (98-107); Estimated GFR (African America 39 (>=60 mL/min/1.73m^2); Estimated GFR (Non-African Ame 32 (>=60 mL/min/1.73m^2); Glucose 99 mg/dL (74-106); Potassium 4.3 mmol/L (3.5-5.1); Sodium 142 mmol/L (136-145)
== END 2023-12-26 14:38 | disposition home or self-care (01) ==
LOC: LAB 14:38
PROVIDERS: PCP Internal Medicine; Visit Provider Internal Medicine Interventional Cardiology
DX: I11.0 Hypertensive heart disease with heart failure (principal)
CPT/HCPCS: 36415; 80048

== ENCOUNTER 2024-02-04 13:43 | Outpatient (OUT) | payer MEDICARE, OTHER, SELFPAY ==
--- OUTSIDE RECORDS SUMMARY | 2024-02-04 14:01 | XMS_ITS | CCD ---
Author Organization [facility] CliniSynh Care Team Providers Care Labor Mediator Name Role Phone EDU ODONNELL Referring Unavailable HOUSE, EDU Primary Care Unavailable ALLYERASTO Lim Admitting Unavailable AJ, FLORENTINO Attending Unavailable ND Procedure Practitioner Unavailab le UNKNOWN, PROVIDER Surgeon Unavailable ND Procedure Practitioner Unavailab le NASHERRY DELGADO Surgeon Unavailable ND Procedure Practitioner Unavailab le AJ, FLORENTINO Surgeon Unavailable LAKSHMI MARSHALLKOLB Admitting Unavailable BLAS, EDU Primary Care Unavailable [...] Unavailable MOUKARBEL, DR CRAVEN Consulting Unavailable PETR MERLOS Attending Unavailable PETR MERLOS Consulting Unavailable PETR MERLOS Admitting Unavailable HOUSE, DR SALAMANCA Primary Care Unavailable ZAPETR GRAY Consulting Unavailable PETR MERLOS Admitting Unavailable HOUSE, DR SALAMANCA Primary Care Unavailable PETR MERLOS Attending Unavailable HOUSE, DR SALAMANCA Primary Care Unavailable MOUKARBEL, DR CRAVEN Admitting Unavailable MOUKARBEL, DR CRAVEN Attending Unavailable HOUSE, DR SALAMANCA Primary Care Unavailable MOUKARBEL, DR CRAVEN Attending Unavailable MOUKARBEL, DR CRAVEN Admitting Unavailable DEAN, LOGAN K Attending Unavailable DEAN, LOGAN K Consulting Unavailable DEAN, LOGAN K Admitting Unavailable HOUSE, DR SALAMANCA Primary Care Unavailable MISC, DR PROCTOR Attending Unavailable MISC, DR DOCTOR Consulting Unavailable [facility] PROCTOR Admitting Unavailable PRESTO, DR SALAMANCA Primary Care Unavailable Keith Foley MD Primary Care Provider Kanchan GIL, Shell Unavailable [phone] SHELL HEMPHILL Attending Unavailstefan HEMPHILL, SHELL Attending Unavailstefan e SHAIKH QUILES Attending Unavailable SHAIKH QUILES Attending Unavailable MOVIKTORIA, HERBER Attending Unavailable MOUKAHERMAN, HERBER Attending Unavailable BIRDIE CHACON Attending Unavailable HERBER FLORES Referring Unavailable MOUKAHERBER SUTTON Admitting Unavailable MOUKAHERMAN, HERBER Attending Unavailable MOUKARBZULLY, HERBER Attending Unavailable MOUKAHERMAN, HERBER Attending Unavailable Allergies Allergy Classification Reported Allergen(s) Allergy Type Date of Onset Reaction(s) Facility (3 sources) Furosemide Drug Allergy 9 [facility] Repository (2 sources) Penicillins; Translations: [PENICILLINS] Drug allergy (disorder) 9 [facility] Repository (3 sources) Sulfonamides (Antibiotic); Translations: [SULFA (SULFONAMIDE ANTIBIOTICS)] Drug allergy (disorder) 9 [facility] Repository (1 source) Penicillin Drug Allergy [facility] Repository (6 sources) Penicillin G Drug Allergy 9 [facility] Healthcare Work Phone: (6 sources) Sulfonamides (Antibiotic) Drug Intolerance 9 [facility] Healthcare (1 source) Furosemide; Translations: [FUROSEMIDE] Drug Allergy 2 [facility] Repository Medications Current Medications Medication Drug Class(es) Dates Sig (Normalized) Sig (Original) [id number] 200 actuat albuterol 0.09 mg/actuat metered dose inhaler (6 sources) beta2-Adrenergic Agonist take 2 puff(s) by inhalation every four hours albuterol HFA (ProAir HFA) 90 mcg/act inhaler Inhale 2 puffs every 4 (four) hours if needed for shortness of breath Active atorvastatin 20 mg oral tablet (7 sources) HMG-CoA Reductase Inhibitor Start: 4 End: 4 take 1 tablet by mouth once daily atorvastatin (Lipitor) 20 MG tablet Indications: Hypercholesteremia (CMS/HCC) Take 1 tablet (20 mg) by mouth Daily 30 tablet 2 11/25/2023 Active bumetanide 2 mg oral tablet (6 sources) Loop Diuretic take 1 tablet by mouth in the morning bumetanide (Bumex) 2 MG tablet Take 2 mg by mouth in the morning and 2 mg before bedtime. Active ferrous sulfate 325 mg oral tablet (6 sources) take 1 tablet by mouth at mealtime ferrous sulfate (FeroSul) 325 (65 Fe) MG tablet Take 325 mg by mouth in the morning. Take with meals. Active 24 hr isosorbide mononitrate 30 mg extended release oral tablet (6 sources) Nitrate Vasodilator Start: 4 End: 5 take 1 tablet by mouth in the morning, then take 1 tablet by mouth every twenty-four hours isosorbide mononitrate ER (Imdur) 30 MG 24 hr tablet Take 30 mg by mouth in the morning. 05/06/2023 05/05/2024 Active Magnesium Oxide (6 sources) magnesium oxide (Mag-Ox) 400 mg tablet 400 mg in the morning. Active metoprolol tartrate 100 mg oral tablet (6 sources) beta-Adrenergic Amy Start: 4 End: 4 take 1.5 tablets by mouth in the morning metoprolol tartrate (Lopressor) 100 MG tablet Indications: Chronic diastolic heart failure (CMS/HCC) Take 1.5 tablets (150 mg) by mouth in the morning and 1.5 tablets (150 mg) before bedtime. 270 tablet 1 08/12/2023 02/08/2024 Active pantoprazole 40 mg delayed release oral tablet (6 sources) Proton Pump Inhibitor take 1 tablet by mouth before mealtime pantoprazole (ProtoNix) 40 MG EC tablet Take 40 mg by mouth in the morning. Take before meals. Active microencapsulated potassium chloride 20 meq extended release oral tablet (6 sources) potassium chlori de CR (Klor-Con M20) 20 MEQ ER tablet Take 20 mEq by mouth in the morning. Do not crush or chew.. Active rivaroxaban 15 mg oral tablet (6 sources) Factor Xa Inhibitor take 1 tablet by mouth in the morning rivaroxaban (Xarelto) 15 MG tablet Take 15 mg by mouth in the morning. Take with food.. Active spironolactone 25 mg oral tablet (6 sources) Aldosterone Antagonist Start: End: take 0.5 tablet by mouth in the morning spironolactone (Aldactone) 25 MG tablet Indications: Hypertensive heart disease with heart failure (CMS/HCC) Take 0.5 tablets (12.5 mg) by mouth in the morning. 15 tablet 10/14/2023 10/13/2024 Active Problems Active Problems Problem Classification Problem Date Documented Date Episodic/Chronic Cardiac dysrhythmias (6 sources) Chronic atrial fibrillation; Translations: [Chronic atrial fibrillation, unspecified] Onset: 01-15-2019 04-25-2023 Chronic Cataract (8 sources) Age-related nuclear cataract, right eye; Translations: [Age-related nuclear cataract, left eye] Onset: 12-21-2021 Chronic Chronic kidney disease (8 sources) Chronic kidney disease stage 3B ; Translations: [Stage 3b chronic kidney disease (HCC)] Onset: 10-14-2023 10-14-2023 Chronic Chronic kidney disease (2 sources) Chronic kidney disease; Translations: [Chronic kidney disease, stage 3b] Onset: 12-18-2023 Congestive heart failure; nonhypertensive (20 sources) Acute on chronic diastolic (congestive) heart failure; Translations: [Chronic diastolic (congestive) heart failure] Onset: 03-07-2021 Chronic Coronary atherosclerosis and other heart disease (11 sources) Atherosclerotic heart disease of [place] coronary artery without angina pectoris; Translations: [Coronary arteriosclerosis] Onset: 06-18-2018 04-25-2023 Chronic Disorders of lipid metabolism (18 sources) Pure hypercholesterolemia, unspecified; Translations: [Hypercholesterolemia ] Onset: 12-27-2021 11-25-2023 Chronic Essential hypertension (11 sources) Essential (primary) hypertension; Translations: [Hypertensive disorder] Onset: 12-27-2021 03-19-2023 Chronic Heart valve disorders (16 sources) Mitral valve regurgitation; Translations: [Nonrheumatic mitral (valve) insufficiency] Onset: 02-01-2022 04-25-2023 Chronic Hypertension with complications and secondary hypertension (6 sources) Hypertensive heart failure; Translations: [Hypertensive heart disease with heart failure] Onset: 01-15-2019 04-25-2023 Chronic Malaise and fatigue (6 sources) Fatigue; Translations: [Chronic fatigue, unspecified] Onset: 04-25-2023 04-25-2023 Chronic Pulmonary heart disease (8 sources) Pulmonary hypertension; Translations: [Pulmonary hypertension, unspecified] Onset: 02-01-2022 04-25-2023 Chronic Residual codes; unclassified (1 source) Acquired absence of both cervix and uterus; Translations: [ACQUIRED ABSENCE BOTH CERVIX AND UTERUS] Onset: 12-27-2021 Episodic Unclassified (2 sources) Chronic atrial fibrillation, unspecified; Translations: [Chronic atrial fibrillation, unspecified] Onset: 02-01-2022 Unclassified (2 sources) Permanent atrial fibrillation; Translations: [Permanent atrial fibrillation] Onset: 05-06-2023 Past or Other Problems Problem Classification Problem Date Documented Da te Episodic/Chronic Administrative/social admission (6 sources) First encounter by subject; Translations: [Persons encountering health services in other specified circumstances] Onset: 04-25-2023 04-25-2023 Episodic Coronary atherosclerosis and other heart disease (3 sources) Presence of aortocoronary bypass graft; Translations: [PRESENCE AORTOCORONARY BYPASS GRAFT] Onset: 12-27-2021 Episodic Other and unspecified benign neoplasm (1 source) Hemangioma unspecified site; Translations: [HEMANGIOMA UNSPECIFIED SITE] Onset: 04-03-2021 Episodic Other lower respiratory disease (7 sources) Dyspnea; Translations: [Shortness of breath] Onset: 04-25-2023 04-25-2023 Episodic Other lower respiratory disease (1 source) Shortness of breath; Translations: [Shortness of breath] Onset: 05-06-2023 Episodic Other skin disorders (4 sources) Sebaceous cyst; Translations: [SEBACEOUS CYST] Onset: 03-28-2021 Episodic Results Test Name Value Interpretation Reference Range Facility Office Visiton 01-13-2024 Follow-up visit [id number] Jenifer Hernandez 1940 F Date Provider Department Center 01/13/2024 Lexi-HERBER FLORES [facility] Family History Problem Relation Age of Onset Other Father Stroke Brother Family Status - Relation Status Age at Father Brother Level of Service:79402 ND OFFICE/OUTPATIENT ESTABLISHED MOD MDM 30 MIN Normal [facility] ALL BASIC METABOLIC PANELon 12-26-2023 Anion gap [Moles/Vol] 10.9 mmol/L [facility] Calcium [Mass/Vol] 9.6 mg/dL 8.5 - 10. 1 mg/dL [facility] Chloride [Moles/Vol] 102 mmol/L 98 - 10 7 mmol/L [facility] CO2 [Moles/Vol] 33.4 mmol/L High 21.0 - 32.0 mmol/L [facility] Creatinine [Mass/Vol] 1.54 mg/dL High 0.55 - 1.02 mg/dL [facility] GFR/1.73 sq M.predicted CKD-EPI (S/P/Bld) [Vol rate/Area] 39 Low >=60 mL/min/1.73m 2 [facility] Glucose [Mass/Vol] 99 mg/dL 74 - 106 mg/dL [facility] Interpretation and review of laboratory results Abnormal [facility] Potassium [Moles/Vol] 4.3 mmol/L 3.5 - 5.1 mmol/L [facility] Sodium [Moles/Vol] 142 mmol/L 136 - 145 mmol/L [facility] TBH EGFR-NON AF CENTRAL AFRICAN 32 Low >=60 mL/min/1.73m 2 [facility] Urea nitrogen [Mass/Vol] 34 mg/dL High 7.0 - 18.0 mg/dL [facility] Urea nitrogen/Creatinine [Mass ratio] 22.1 mg/mg [facility] ALL BASIC METABOLIC PANELon 12-18-2023 Anion gap [Moles/Vol] 13.5 mmol/L [facility] Calcium [Mass/Vol] 9.2 mg/dL 8.5 - 10. 1 mg/dL [facility] Chloride [Moles/Vol] 102 mmol/L 98 - 10 7 mmol/L [facility] CO2 [Moles/Vol] 31.4 mmol/L 21.0 - 32.0 mmol/L [facility] Creatinine [Mass/Vol] 1.68 mg/dL High 0.55 - 1.02 mg/dL [facility] GFR/1.73 sq M.predicted CKD-EPI (S/P/Bld) [Vol rate/Area] 35 Low >=60 mL/min/1.73m 2 [facility] Glucose [Mass/Vol] 137 mg/dL High 74 - 106 mg/dL [facility] Interpretation and review of laboratory results Abnormal [facility] Potassium [Moles/Vol] 3.9 mmol/L 3.5 - 5.1 mmol/L [facility] Sodium [Moles/Vol] 143 mmol/L 136 - 145 mmol/L [facility] EGFR-NON AF CENTRAL AFRICAN 29 Low >=60 mL/min/1.73m 2 [facility] Urea nitrogen [Mass/Vol] 35 mg/dL High 7.0 - 18.0 mg/dL [facility] Urea nitrogen/Creatinine [Mass ratio] 20.8 mg/mg [facility] Healthcare Office Visiton 12-18-2023 Follow-up visit [id number] Jenifer Hernandez [place] 1940 F Date Provider Department Center 12/18/2023 [id number] CHACON LEIGHA Mcgrath Family History Problem Relation Age of Onset Other Father Stroke Brother Family Status - Relation Status Age at Father Brother Level of Service:66604 ND OFFICE/OUTPATIENT ESTABLISHED MOD MDM 30 MIN Reason for Visit and Comments: Atrial Fibrillation [80] - Denies palpitations, syncope, and bleeding on Xarelto. Congestive Heart Failure [127] - Dr. Flores reduced Bumex at last visit in Sep. Had echo 2 weeks ago and needs more diuretic per Dr. Flores. She has gained 6# since last visit. Coronary Artery Disease [187] Hypertension [338419] Valve Disorder [3372] Dizziness [060847] - Denies syncope. Edema [[id number]] [facility] 36on 12-12-2023 36 Spoke with patient a nd got her in to see Dr. Chacon on 12/17. I asked her to have BMP prior to apt. Order faxed to [facility]. [facility] 36on 12-09-2023 36 Regarding echo resul t from 11/29/2023: MD Radha Castro MA She needs more diuretic, is she coming for a follow up? She is not scheduled to see you until 01/12. You are completely booked until then. Would you like her to see an [employer] OFFICER or Dr. Chacon in the meantime? [facility] Office Visiton 09-25-2023 Follow-up visit [id number] Jenifer Hernandez 1940 F Date Provider Department Center 09/25/2023 Lexi-HERBER FLORES LEIGHA Mcgrath Family History Problem Relation Age of Onset Other Father Stroke Brother Family Status - Relation Status Age at Father Brother Level of Service:47980 ND OFFICE/OUTPATIENT ESTABLISHED MOD MDM 30 MIN Normal [facility] ANESon 09-10-2023 ANES ---- -------- Attestation signed by [...] Location: [facility] TITLE 1 TUTOR 3 / [facility] (Cath) Providers: Herber Flores MD Clinical information reviewed: Allergies Meds Physical [...] discussed with attending. Additional Equipment Requests Normal [facility] BASIC METABOLIC PANELon 07-2 Anion gap [Moles/Vol] 12 mmol/L Normal 7-20 [facility] Comment on above: Performed By: #### L [id number] ####[facility] (BEAKER)[address] [place] [address] Calcium [Mass/Vol] 9.3 mg/dL Normal 8.6-10.3 [facility] Comment on above: Performed By: #### L [id number] ####[facility] ([facility] [place] [address] Chloride [Moles/Vol] 100 mmol/L Normal 98-107 [facility] Comment on above: Performed By: #### L [id number] ####[facility] ([facility])[address] [place] [address] CO2 [Moles/Vol] 30 mmol/L Normal 21-31 [facility] Comment on above: Performed By: #### L [id number] ####[facility] ([facility] [place] [address] Creatinine [Mass/Vol] 1.30 mg/dL High 0.60-1.20 [facility] Comment on above: Performed By: #### L [id number] ####[facility] ([facility] [place] [address] GLOMERULAR FILTRATION RATE ML/MIN/1.73 SQ M.PREDICTED 40.3 mL/min/1.73m*2 Low >60.0 [facility] Comment on above: Result Comment: [facility]???s estimated glomerular filtration rate (eGFR) will no [...] of individuals. Performed By: #### L [id number] ####[facility] ([facility] [place] [address] Glucose [Mass/Vol] 130 mg/dL High 70-100 [facility] Comment on above: Performed By: #### L [id number] ####[facility] ([facility])[address] [place] [address] Potassium [Moles/Vol] 3.4 mmol/L Low 3.5-5.1 [facility] Comment on above: Performed By: #### L [id number] ####[facility] ([facility])[address] [place] [address] Sodium [Moles/Vol] 139 mmol/L Normal 136-145 [facility] Comment on above: Performed By: #### L [id number] ####[facility] ([facility])[address] [place] [address] Urea nitrogen [Mass/Vol] 34 mg/dL High 7-25 [facility] Comment on above: Performed By: #### L [id number] ####[facility] ([facility])[address] [place] [address] UREA NITROGEN/CREATININE (MASS RATIO) IN SER/PLAS 26.2 Normal [facility] Comment on above: Performed By: #### L [id number] ####[facility] ([facility])[address] [place] [address] CBC WITH AUTO DIFFERENTIALon 09-10-2023 Basophils (Bld) [#/Vol] 0.04 10*3/uL Normal 0.00-0.20 [facility] Comment on above: Performed By: #### L [id number] ####[facility] ([facility])[address] [place] [address] Basophils/100 WBC (Bld) 0.6 % Normal 0.0-1.0 [facility] Comment on above: Performed By: #### L [id number] ####[facility] ([facility] [place] [address] Eosinophils (Bld) [#/Vol] 0.15 10*3/uL Normal 0.00-0.50 [facility] Comment on above: Performed By: #### L [id number] ####[facility] ([facility]ER)[address] [place] [address] Eosinophils/100 WBC (Bld) 2.2 % Normal 0.0-6.0 [facility] Comment on above: Performed By: #### L [id number] ####[facility] ([facility] [place] [address] Erythrocyte distribution width (RBC) [Ratio] 14.4 % Normal 11.5-15.0 [facility] Comment on above: Performed By: #### L [id number] ####[facility] ([facility] [place] [address] ERYTHROCYTE MEAN CORPUSCULAR HEMOGLOBIN CONCENTRATION (G/DL) BY AUTOMATED 32.7 g/dL Normal 32.0-35.0 [facility] Comment on above: Performed By: #### L [id number] ####[facility] ([facility] [place] [address] Hematocrit (Bld) [Volume fraction] 37.6 % Normal 36.0-48.0 [facility] Comment on above: Performed By: #### L [id number] ####[facility] ([facility])[address] [place] [address] Hemoglobin (Bld) [Mass/Vol] 12.3 g/dL Normal 12.0-15.0 [facility] Comment on above: Performed By: #### L [id number] ####[facility] ([facility])[address] [place] [address] Immature granulocytes (Bld) [#/Vol] 0.02 10*3/uL Normal 0.00-0.20 [facility] Comment on above: Performed By: #### L [id number] ####[facility] ([facility])[address] [place] [address] Immature granulocytes/100 WBC (Bld) 0.3 % Normal 0.0-1.0 [facility] Comment on above: Performed By: #### L [id number] ####[facility] ([facility])[address] [place] [address] Lymphocytes (Bld) [#/Vol] 1.10 10*3/uL Low 1.20-4.00 [facility] Comment on above: Performed By: #### L [id number] ####[facility] ([facility])[address] [place] [address] Lymphocytes/100 WBC (Bld) 16.3 % Low 20.0-45.0 [facility] Comment on above: Performed By: #### L [id number] ####[facility] ([facility])[address] [place] [address] MCH (RBC) [Entitic mass] 32.6 pg Normal 27.0-33.0 [facility] Comment on above: Performed By: #### L [id number] ####[facility] ([facility])[address] [place] [address] MCV (RBC) [Entitic vol] 99.7 fL High 82.0-98.0 [facility] Comment on above: Performed By: #### L [id number] ####[facility] ([facility])[address] [place] [address] Monocytes (Bld) [#/Vol] 0.92 10*3/uL Normal 0.10-1.00 [facility] Comment on above: Performed By: #### L [id number] ####[facility] ([facility])[address] [place] [address] Monocytes/100 WBC (Bld) 13.6 % High 5.0-12.0 [facility] Comment on above: Performed By: #### L [id number] ####[facility] ([facility])[address] [place] [address] Neutrophils (Bld) [#/Vol] 4.53 10*3/uL Normal 1.60-7.60 [facility] Comment on above: Performed By: #### L [id number] ####[facility] [place] [address] Neutrophils/100 WBC (Bld) 67.0 % Normal 40.0-72.0 [facility] Comment on above: Performed By: #### L [id number] ####[facility] [place] [address] NRBC (PER 100 WBCS) BY AUTOMATED COUNT 0.0 % Normal 0 [facility] Comment on above: Performed By: #### L [id number] ####[facility] ([facility])[address] [place] [address] PLATELETS (10*3/UL) IN BLOOD AUTOMATED COUNT 163 10*3/uL Normal 150-400 [facility] Comment on above: Performed By: #### L [id number] ####[facility] ([facility])[address] [place] [address] RBC (Bld) [#/Vol] 3.77 10*6/uL Low 3.80-5.00 [facility] Comment on above: Performed By: #### L [id number] ####[facility] ([facility])[address] [place] [address] WBC (Bld) [#/Vol] 6.76 10*3/uL Normal 4.00-10.60 [facility] Comment on above: Performed By: #### L [id number] ####[facility] ([facility])[address] [place] [address] HPon 09-10-2023 History Of Present Illness Jenifer Hernandez is [...] 3 09/09/2023 ergocalciferol (Vitamin D-2) 1.25 MG (33664 Units) capsule Vitamin D2 1,250 mcg (50,000 [...] and tri (more content not included)... Normal [facility] HP ---- -------- Attestation signed by Dwight [...] 3 09/09/2023 ergocalciferol (Vitamin D-2) 1.25 MG (41002 Units) capsule Vitamin D2 1,250 mcg (50,000 [...] pulmonic regurgitation. Assessment/Plan Coronary artery disease of [place] artery of [place] heart with stable angina pectoris ([facility]/HCC) Chronic diastolic congestive heart failure ([facility]/HCC) Shortness of breath Permanent atrial fibrillation ([facility]/HCC) Stage 3b chronic kidney disease (CMS/HCC) Pulmonary hypertension ([facility]/HCC) Severe TR Moderate MR Mild AR - Plan: RHC and ADWOA Primary hypertension - continue medical therapy History of coronary artery bypass surgery s/p CABG - continue medical therapy [facility] NURSNOTEon 09-10-2023 NURSSIMI RN educated pt on d/ c instructions. RN encouraged pt to voice any questions or concerns. Pt verbalizes no questions or concerns at this time. [facility] ALISON Spoke with Dr. Brii macias and john to discharge pt at 1600. [facility] Office Visiton 06-14-2023 Follow-up visit [id number] Jenifer Hernandez 1940 F Date Provider Department Center 06/14/2023 HERBER BERMUDEZ LEIGHA [facility] Family History Problem Relation Age of Onset Other Father Stroke Brother Family Status - Relation Status Age at Father Brother Level of Service:90735 ND OFFICE/OUTPATIENT ESTABLISHED HIGH MDM 40 MIN Reason for Visit and Comments: Follow-up [879869] - 1 month- stress/echo [facility] Office Visiton 05-06-2023 Follow-up visit [id number] Jenifer Hernandez 1940 F Date Provider Department Center 05/06/2023 HERBER BERMUDEZ LEIGHA Mcgrath Family History Problem Relation Age of Onset Other Father Stroke Brother Family Status - Relation Status Age at Father Brother Level of Service:94852 ND OFFICE/OUTPATIENT ESTABLISHED MOD MDM 30 MIN [facility] PROF CHEM 8 (BAS METB)on Anion gap [Moles/Vol] 13.7 mmol/L [facility] Comment on above: Performed By: #### B MP #### [facility] [address] [place] [address] Dr. Vega Sorensen Calcium [Mass/Vol] 9.2 mg/dL Normal 8.5-10.1 [facility] Comment on above: Performed By: #### B MP #### [facility] [address] [address] [address] Vega Sorensen Chloride [Moles/Vol] 100 mmol/L Normal 98-107 [facility] Comment on above: Performed By: #### B MP #### [facility] [address] [address] [address] Vega Sorensen CO2 [Moles/Vol] 30.2 mmol/L Normal 21.0-32.0 [facility] Comment on above: Performed By: #### B MP #### [facility] [address] [place] [address] Dr. Vega Sorensen Creatinine [Mass/Vol] 1.69 mg/dL Critically high 0.55-1.02 [facility] Comment on above: Performed By: #### B MP #### [facility] [address] [place] [address] Dr. Vega Sorensen EGFR-AF CENTRAL AFRICAN 35 mL/min/1.73m2 Critically low >=60 [facility] Comment on above: Performed By: #### B MP #### [facility] [address] [place] [address] Dr. Vega Sorensen EGFR-NON AF CENTRAL AFRICAN 29 mL/min/1.73m2 Critically low >=60 [facility] Comment on above: Performed By: #### B MP #### [facility] [address] [address] [address] Vega Sorensen Glucose [Mass/Vol] 162 mg/dL Critically high 74-106 [facility] Comment on above: Performed By: #### B MP #### [facility] [address] [address] [address] Vega Sorensen Potassium [Moles/Vol] 3.9 mmol/L Normal 3.5-5.1 [facility] Comment on above: Performed By: #### B MP #### [facility] [address] [place] [address] Dr. Vega Sorensen Sodium [Moles/Vol] 140 mmol/L Normal 136-145 [facility] Comment on above: Performed By: #### B MP #### [facility] [address] [address] [address] Vega Sorensen Urea nitrogen [Mass/Vol] 36.0 mg/dL Critically high 7.0-18.0 [facility] Comment on above: Performed By: #### B MP #### [facility] [address] [address] [address] Vega Sorensen Urea nitrogen/Creatinine [Mass ratio] 21.3 mg/mg Normal [facility] Comment on above: Performed By: #### B MP #### [facility] [address] [address] [address] Vega Sorensen PROF CHEM 8 (BAS METB)on Anion gap [Moles/Vol] 14.6 mmol/L Normal [facility] Comment on above: Performed By: #### B MP ####[facility] [address] [address]Dr. Vega Sorensen Calcium [Mass/Vol] 9.1 mg/dL Normal 8.5-10.1 [facility] Comment on above: Performed By: #### B MP ####[facility] [address] [address]Dr. Vega Sorensen Chloride [Moles/Vol] 99 mmol/L Normal 98-107 [facility] Comment on above: Performed By: #### B MP ####[facility] [address] [address]Dr. Vega Sorensen CO2 [Moles/Vol] 28.8 mmol/L Normal 21.0-32.0 [facility] Comment on above: Performed By: #### B MP ####[facility] [address] [address]Dr. Vega Sorensen Creatinine [Mass/Vol] 1.63 mg/dL Critically high 0.55-1.02 [facility] Comment on above: Performed By: #### B MP ####[facility] [address] [address]Dr. Vega Sorensen EGFR-AF CENTRAL AFRICAN 37 mL/min/1.73m2 Critically low >=60 [facility] Comment on above: Performed By: #### B MP ####[facility] [address] [place], [place] [address]Dr. Vega Sorensen EGFR-NON AF CENTRAL AFRICAN 30 mL/min/1.73m2 Critically low >=60 [facility] Comment on above: Performed By: #### B MP ####[facility] [address] [place], [place] [address]Dr. Angelawinsome Sorensen Glucose [Mass/Vol] 143 mg/dL Critically high 74-106 [facility] Comment on above: Performed By: #### B MP ####[facility] [address] [place], [place] [address]Dr. Vega Sorensen Potassium [Moles/Vol] 3.4 mmol/L Critically low 3.5-5.1 [facility] Comment on above: Performed By: #### B MP ####[facility] [address] [place], [place] [address]Dr. Vega Sorensen Sodium [Moles/Vol] 139 mmol/L Normal 136-145 [facility] Comment on above: Performed By: #### B MP ####[facility] [address] [place], [place] [address]Dr. Angelawinsome Edu Urea nitrogen [Mass/Vol] 38.0 mg/dL Critically high 7.0-18.0 [facility] Comment on above: Performed By: #### B MP ####[facility] [address] [place], [place] [address]Dr. Vega Sorensen Urea nitrogen/Creatinine [Mass ratio] 23.3 mg/mg Normal [facility] Comment on above: Performed By: #### B MP ####[facility] [address] [place], [place] [address]Dr. Angelawinsome Sorensen BNPon 08-18-2021 Natriuretic peptide B (Bld) [Mass/Vol] 5150.0 pg/mL Critically high <=1,800.0 [facility] Comment on above: Performed By: #### B MP, BNP #### [facility] [address] [address] [address] Vega Sorensen PROF CHEM 8 (BAS METB)on Anion gap [Moles/Vol] 12.9 mmol/L Normal [facility] Comment on above: Performed By: #### B MP, BNP #### [facility] [address] [address] [address] Vega Sorensen Calcium [Mass/Vol] 9.0 mg/dL Normal 8.5-10.1 [facility] Comment on above: Performed By: #### B MP, BNP #### [facility] [address] [address] [address] Vega Sorensen Chloride [Moles/Vol] 102 mmol/L Normal 98-107 [facility] Comment on above: Performed By: #### B MP, BNP #### [facility] [address] [address] [address] Vega Sorensen CO2 [Moles/Vol] 30.2 mmol/L Normal 21.0-32.0 [facility] Comment on above: Performed By: #### B MP, BNP #### [facility] [address] [address] [address] Vega Sorensen Creatinine [Mass/Vol] 1.90 mg/dL Critically high 0.55-1.02 [facility] Comment on above: Performed By: #### B MP, BNP #### [facility] [address] [address] [address] Vega Sorensen EGFR-AF CENTRAL AFRICAN 31 mL/min/1.73m2 Critically low >=60 [facility] Comment on above: Performed By: #### B MP, BNP #### [facility] [address] [address] [address] Vega Sorensen EGFR-NON AF CENTRAL AFRICAN 25 mL/min/1.73m2 Critically low >=60 [facility] Comment on above: Performed By: #### B MP, BNP #### [facility] [address] [address] [address] Vega Sorensen Glucose [Mass/Vol] 121 mg/dL Critically high 74-106 [facility] Comment on above: Performed By: #### B MP, BNP #### [facility] [address] [place] [address] Dr. Vega Sroensen Potassium [Moles/Vol] 4.1 mmol/L Normal 3.5-5.1 [facility] Comment on above: Performed By: #### B MP, BNP #### [facility] [address] [place] [address] Dr. Vega Sorensen Sodium [Moles/Vol] 141 mmol/L Normal 136-145 [facility] Comment on above: Performed By: #### B MP, BNP #### [facility] [address] [place] [address] Dr. Vega Sorensen Urea nitrogen [Mass/Vol] 34.0 mg/dL Critically high 7.0-18.0 [facility] Comment on above: Performed By: #### B MP, BNP #### [facility] [address] [place] [address] Dr. Vega Sorensen Urea nitrogen/Creatinine [Mass ratio] 17.9 mg/mg Normal [facility] Comment on above: Performed By: #### B MP, BNP #### [facility] [address] [place] [address] Dr. Vega Castaneda 03-30-2021 L ---- Specimen: [id number] Received: 03/30/21 Status: JORGE Spaulding Num: [id number] Spec Type: Surgical Subm Dr: Chad Yeboah MD Tissues: A Soft Tissue/Surgical Margin-Other than Tumor,Mass,Lip or Rosita (ANTERIOR ORBIT Procedures: HE Stain, Gross/Micro L4 Patient Age/Sex Location Account Attending Physician Jenifer Hernandez 80/F [place] [id number] Chad Yeboah MD SPEC NUM: [id number] RECD: 03/30/21 STATUS: JORGE BERNARD NUM: [id number] RACHAEL: 03/30/21 DR: Chad Yeboah MD ENTERED: 03/30/[address] [facility] [address]: HALLEY TYPE: Surgical DEPT: S ORDERED: HE Stain, [...] Fixative: 10% Neutral Buffered Formalin (TAMMI/YJ) Specimen: [id number] Received: 03/30/21 Status: JORGE Boswellgale Num: [id number] Spec Type: Surgical Subm Dr: Chad Yeboah MD Tissues: A Soft Tissue/Surgical Margin-Other than Tumor,Mass,Lip or Rosita (ANTERIOR ORBIT Procedures: HE Stain, Gross/Micro L4 Patient: Jenifer Hernandez [id number] (Continued) Specimen: [id number] Received: 03/30/21 (Continued) Signed (signature on file) Mili Peguero MD 03/31/21 2968 Specimen: [id number] Received: 03/30/21 Status: JORGE Spaulding Num: [id number] Spec Type: Surgical Subm Dr: Chad Yeboah MD Tissues: A Soft Tissue/Surgical Margin-Other than Tumor,Mass,Lip or Rosita (ANTERIOR ORBIT Procedures: HE Stain, Gross/Micro L4 Patient: Jenifer Hernandez [id number] (Continued) Specimen: [id number] Received: 03/30/21 (Continued) Microscopic [...] Laboratory of [facility]. Immunohistochemistry assays have not been validated on decalcified tissue. Results should be interpreted with caution given the possibility of false negative results on decalcified specimens. They have not been cleared by the [place] Food and Drug Administration. The FDA has determined that such clearance or approval is not necessary. CPT Codes 15928, 56441, 35821, 00952 Specimen: [id number] Received: 03/30/21 Status: JORGE Spaulding Num: [id number] Spec Type: Surgical Subm Dr: Chad Yeboah MD Tissues: A Soft Tissue/Surgical Margin-Other than Tumor,Mass,Lip or Rosita (ANTERIOR ORBIT Procedures: HE Stain, Gross/Micro L4 Patient: MaryJenifer Linden [id number] (Continued) (more content not included)... Normal [facility] CBC AUTO DIFFon 03-28-2021 BASO # 0.0 103/ul Normal 0.0-0.1 [facility] Comment on above: Performed By: #### C BC #### [facility] [address] [place] [address] Dr. Vega Sorensen Basophils/100 WBC (Bld) 0.5 % Normal 0.2-2.0 [facility] Comment on above: Performed By: #### C BC #### [facility] [address] [place] [address] Dr. Vega Sorensen EO # 0.1 103/ul Normal 0.0-0.7 [facility] Comment on above: Performed By: #### C BC #### [facility] [address] [place] [address] Dr. Vega Sorensen Eosinophils/100 WBC (Bld) 1.5 % Normal 0.9-7.0 [facility] Comment on above: Performed By: #### C BC #### [facility] [address] [place] [address] Dr. Vega Sorensen Erythrocyte distribution width (RBC) [Ratio] 13.7 % Normal 11.0-15.0 [facility] Comment on above: Performed By: #### C BC #### [facility] [address] [place] [address] Dr. Vega Sorensen Hematocrit (Bld) [Volume fraction] 38.1 % Normal 36.0-48.0 [facility] Comment on above: Performed By: #### C BC #### [facility] [address] [place] [address] Dr. Vega Sorensen Hemoglobin (Bld) [Mass/Vol] 12.5 g/dL Normal 12.0-16.0 [facility] Comment on above: Performed By: #### C BC #### [facility] [address] [place] [address] Dr. Vega Sorensen IG # 0.03 10e3/ul Normal 0.00-0.03 [facility] Comment on above: Performed By: #### C BC #### [facility] [address] [place] [address] Dr. Vega Sorensen IG % 0.4 % Normal 0.0-0.5 [facility] Comment on above: Performed By: #### C BC #### [facility] [address] [place] [address] Dr. Vega Sorensen LYMPH # 1.4 103/ul Normal 1.2-3.8 [facility] Comment on above: Performed By: #### C BC #### [facility] [address] [place] [address] Dr. Vega Sorensen Lymphocytes/100 WBC (Bld) 18.7 % Critically low 20.5-60.0 [facility] Comment on above: Performed By: #### C BC #### [facility] [address] [place] [address] Dr. Vega Sorensen MANUAL DIFF REQ NO Normal [facility] Comment on above: Performed By: #### C BC #### [facility] [address] [place] [address] Dr. Vega Sorensen MCH (RBC) [Entitic mass] 34.0 pg Normal 26.7-34.0 [facility] Comment on above: Performed By: #### C BC #### [facility] [address] [place] [address] Dr. Vega Sorensen MCHC (RBC) [Mass/Vol] 32.8 g/dL Normal 29.9-35.2 [facility] Comment on above: Performed By: #### C BC #### [facility] [address] [place] [address] Dr. Vega Sorensen MCV (RBC) [Entitic vol] 103.5 fL Critically high 81.0-99.0 [facility] Comment on above: Performed By: #### C BC #### [facility] [address] [place] [address] Dr. Vega Sorensen MONO # 1.0 103/ul Critically high 0.3-0.8 [facility] Comment on above: Performed By: #### C BC #### [facility] [address] [place] [address] Dr. Vega Sorensen Monocytes/100 WBC (Bld) 12.8 % Critically high 1.7-12.0 [facility] Comment on above: Performed By: #### C BC #### [facility] [address] [place] [address] Dr. Vega Sorensen NEUT # 5.0 103/ul Normal 1.4-6.5 [facility] Comment on above: Performed By: #### C BC #### [facility] [address] [place] [address] Dr. Vega Sorensen Neutrophils/100 WBC (Bld) 66.1 % Normal 43.0-75.0 [facility] Comment on above: Performed By: #### C BC #### [facility] [address] [place] [address] Dr. Vega Sorensen Platelet mean volume (Bld) [Entitic vol] 9.2 fL Critically low 9.5-13.5 [facility] Comment on above: Performed By: #### C BC #### [facility] [address] [place] [address] Dr. Vega Sorensen PLT 180 103/ul Normal 150-450 [facility] Comment on above: Performed By: #### C BC #### [facility] [address] [place] [address] Dr. Vega Sorensen RBC 3.68 106/ul Critically low 4.20-5.40 [facility] Comment on above: Performed By: #### C BC #### [facility] [address] [place] [address] Dr. Vega Sorensen WBC 7.5 103/ul Normal 4.0-11.0 [facility] Comment on above: Performed By: #### C BC #### [facility] [address] [place] [address] Dr. Vega Sorensen BNPon 03-07-2021 Natriuretic peptide B (Bld) [Mass/Vol] 2297.0 pg/mL Critically high <=1,800.0 [facility] Comment on above: Performed By: #### B MP, BNP #### [facility] [address] [place] [address] Dr. Vega Sorensen PROF CHEM 8 (BAS METB)on Anion gap [Moles/Vol] 10.0 mmol/L Normal [facility] Comment on above: Performed By: #### B MP, BNP #### [facility] [address] [place] [address] Dr. Vega Sorensen Calcium [Mass/Vol] 9.1 mg/dL Normal 8.4-10.2 [facility] Comment on above: Performed By: #### B MP, BNP #### [facility] [address] [place] [address] Dr. Vega Sorensen Chloride [Moles/Vol] 101 mmol/L Normal 98-107 [facility] Comment on above: Performed By: #### B MP, BNP #### [facility] [address] [place] [address] Dr. Vega Sorensen CO2 [Moles/Vol] 31.8 mmol/L Critically high 22.0-30.0 [facility] Comment on above: Performed By: #### B MP, BNP #### [facility] [address] [place] [address] Dr. Vega Sorensen Creatinine [Mass/Vol] 1.70 mg/dL Critically high 0.52-1.04 [facility] Comment on above: Performed By: #### B MP, BNP #### [facility] [address] [place] [address] Dr. Vega Sorensen EGFR-AF CENTRAL AFRICAN 35 mL/min/1.73m2 Critically low >=60 [facility] Comment on above: Performed By: #### B MP, BNP #### [facility] [address] [place] [address] Dr. Vega Sorensen EGFR-NON AF CENTRAL AFRICAN 29 mL/min/1.73m2 Critically low >=60 [facility] Comment on above: Performed By: #### B MP, BNP #### [facility] [address] [place] [address] Dr. Vega Sorensen Glucose [Mass/Vol] 160 mg/dL Critically high 74-106 [facility] Comment on above: Performed By: #### B MP, BNP #### [facility] [address] [place] [address] Dr. Vega Sorensen Potassium [Moles/Vol] 3.8 mmol/L Normal 3.4-5.0 [facility] Comment on above: Performed By: #### B MP, BNP #### [facility] [address] [address] [address] Vega Sorensen Sodium [Moles/Vol] 139 mmol/L Normal 137-145 [facility] Comment on above: Performed By: #### B MP, BNP #### [facility] [address] [address] [address] Vega Sorensen Urea nitrogen [Mass/Vol] 36.0 mg/dL Critically high 7.0-17.0 [facility] Comment on above: Performed By: #### B MP, BNP #### [facility] [address] [address] [address] Vega Sorensen Urea nitrogen/Creatinine [Mass ratio] 21.2 mg/mg Normal [facility] Comment on above: Performed By: #### B MP, BNP #### [facility] [address] [address] [address] Vega Sorensen BASIC METABOLIC PANELon 11-2 Calcium [Mass/Vol] 8.7 mg/dL Normal 8.6-10.3 [facility] Comment on above: Order Comment: No: D o not add to previous draw Performed By: #### 0 0071, 46929, 57835, 92044 #### [facility] [address] [place] [address], [place] Chloride [Moles/Vol] 95 mmol/L Low 98-107 [facility] Comment on above: Order Comment: No: D o not add to previous draw Performed By: #### 0 0071, 97622, 82908, 55103 #### [facility] [address] [place] [address], [place] CO2 [Moles/Vol] 33 mmol/L High 21-31 [facility] Comment on above: Order Comment: No: D o not add to previous draw Performed By: #### 0 0071, 29325, 26996, 90132 #### [facility] [address] [place] [address], [place] Creatinine [Mass/Vol] 1.21 mg/dL High 0.60-1.20 [facility] Comment on above: Order Comment: No: D o not add to previous draw Performed By: #### 0 0071, 56067, 99490, 66767 #### [facility] [address] [place] [address], [place] GFR/1.73 sq M predicted among blacks MDRD (S/P/Bld) [Vol rate/Area] 52 ml/min/1.73sq m Abnormal >60 [facility] Comment on above: Order Comment: No: D o not add to previous draw Result Comment: Calc ulation may not be valid for patients over 70 years Performed By: #### 0 0071, 00953, 54674, 52476 #### [facility] [address] [place] [address], [facility] GFR/1.73 sq M predicted among non-blacks MDRD (S/P/Bld) [Vol rate/Area] 43 ml/min/1.73sq m Abnormal >60 [facility] Comment on above: Order Comment: No: D o not add to previous draw Result Comment: Calc ulation may not be valid for patients over 70 years Performed By: #### 0 0071, 70134, 64333, 27139 #### [facility] [address] [place] [address], [place] Glucose [Mass/Vol] 105 mg/dL High 70-100 [facility] Comment on above: Order Comment: No: D o not add to previous draw Performed By: #### 0 0071, 12362, 85118, 57078 #### [facility] [address] [place] [address], [place] Potassium [Moles/Vol] 3.2 mmol/L Low 3.5-5.1 [facility] Comment on above: Order Comment: No: D o not add to previous draw Performed By: #### 0 0071, 13693, 92218, 89256 #### [facility] [address] [place] [address], [place] Sodium [Moles/Vol] 134 mmol/L Low 136-145 [facility] Comment on above: Order Comment: No: D o not add to previous draw Performed By: #### 0 0071, 98770, 45838, 44867 #### [facility] [address] [place] [address], [place] Urea nitrogen [Mass/Vol] 22 mg/dL Normal 7-25 [facility] Comment on above: Order Comment: No: D o not add to previous draw Performed By: #### 0 0071, 94188, 93232, 51817 #### [facility] [address] [place] [address], [place] Calcium [Mass/Vol] 8.5 mg/dL Low 8.6-10.3 [facility] Comment on above: Order Comment: No: D o not add to previous draw Performed By: #### 0 0071, 86868, 88251, 16948 #### [facility] [address] [place] [address], [place] Chloride [Moles/Vol] 95 mmol/L Low 98-107 [facility] Comment on above: Order Comment: No: D o not add to previous draw Performed By: #### 0 0071, 37509, 06889, 39336 #### [facility] [address] [place] [address], [place] CO2 [Moles/Vol] 34 mmol/L High 21-31 [facility] Comment on above: Order Comment: No: D o not add to previous draw Performed By: #### 0 0071, 63284, 98880, 56997 #### [facility] [address] [place] [address], [place] Creatinine [Mass/Vol] 1.15 mg/dL Normal 0.60-1.20 [facility] Comment on above: Order Comment: No: D o not add to previous draw Performed By: #### 0 0071, 67482, 91118, 61136 #### [facility] [address] [place] [address], [facility] GFR/1.73 sq M predicted among blacks MDRD (S/P/Bld) [Vol rate/Area] 55 ml/min/1.73sq m Abnormal >60 [facility] Comment on above: Order Comment: No: D o not add to previous draw Result Comment: Calc ulation may not be valid for patients over 70 years Performed By: #### 0 0071, 78526, 42972, 03161 #### [facility] [address] [place] [address], [facility] GFR/1.73 sq M predicted among non-blacks MDRD (S/P/Bld) [Vol rate/Area] 45 ml/min/1.73sq m Abnormal >60 [facility] Comment on above: Order Comment: No: D o not add to previous draw Result Comment: Calc ulation may not be valid for patients over 70 years Performed By: #### 0 0071, 32072, 18448, 48463 #### [facility] [address] [place] [address], [facility] Glucose [Mass/Vol] 109 mg/dL High 70-100 [facility] Comment on above: Order Comment: No: D o not add to previous draw Performed By: #### 0 0071, 97852, 34076, 31000 #### [facility] [address] [place] [address], [facility] Potassium [Moles/Vol] 2.8 mmol/L Low 3.5-5.1 [facility] Comment on above: Order Comment: No: D o not add to previous draw Performed By: #### 0 0071, 45449, 90896, 20773 #### [facility] [address] [place] [address], [facility] Sodium [Moles/Vol] 136 mmol/L Normal 136-145 [facility] Comment on above: Order Comment: No: D o not add to previous draw Performed By: #### 0 0071, 85697, 45403, 12050 #### [facility] [address] [place] [address], [facility] Urea nitrogen [Mass/Vol] 26 mg/dL High 7-25 [facility] Comment on above: Order Comment: No: D o not add to previous draw Performed By: #### 0 0071, 61941, 02403, 47873 #### [facility] [address] [place] [address], [place] MAGNESIUM BLOODon 01-14-2019 Magnesium [Mass/Vol] 2.1 mg/dL Normal 1.9-2.7 [facility] Comment on above: Order Comment: No: D o not add to previous draw Performed By: #### 0 0071, 45895, 79672, 88477 #### [facility] [address] [place] [address], [facility] Magnesium [Mass/Vol] 1.6 mg/dL Low 1.9-2.7 [facility] Comment on above: Order Comment: No: D o not add to previous draw Performed By: #### 0 0071, 54780, 95727, 81680 #### [facility] [address] [place] [address], [facility] BASIC METABOLIC PANELon 12-20 Calcium [Mass/Vol] 8.6 mg/dL Normal 8.6-10.3 [facility] Comment on above: Order Comment: No: D o not add to previous draw Performed By: #### 0 0071, 52245, 56030, 14209 #### [facility] [address] [place] [address], [place] Chloride [Moles/Vol] 96 mmol/L Low 98-107 [facility] Comment on above: Order Comment: No: D o not add to previous draw Performed By: #### 0 0071, 43546, 29788, 68344 #### [facility] [address] [place] [address], [place] CO2 [Moles/Vol] 34 mmol/L High 21-31 [facility] Comment on above: Order Comment: No: D o not add to previous draw Performed By: #### 0 0071, 38387, 92704, 61888 #### [facility] [address] [place] [address], [place] Creatinine [Mass/Vol] 0.97 mg/dL Normal 0.60-1.20 [facility] Comment on above: Order Comment: No: D o not add to previous draw Performed By: #### 0 0071, 34081, 93861, 94274 #### [facility] [address] [place] [address], [place] GFR/1.73 sq M predicted among blacks MDRD (S/P/Bld) [Vol rate/Area] mL/min/{1.73_m2} Normal >60 [facility] Comment on above: Order Comment: No: D o not add to previous draw Result Comment: Calc ulation may not be valid for patients over 70 years Performed By: #### 0 0071, 64664, 38331, 03117 #### [facility] [address] [place] [address], [place] GFR/1.73 sq M predicted among non-blacks MDRD (S/P/Bld) [Vol rate/Area] 55 ml/min/1.73sq m Abnormal >60 [facility] Comment on above: Order Comment: No: D o not add to previous draw Result Comment: Calc ulation may not be valid for patients over 70 years Performed By: #### 0 0071, 27352, 18480, 49473 #### [facility] [address] [place] [address], [place] Glucose [Mass/Vol] 93 mg/dL Normal 70-100 [facility] Comment on above: Order Comment: No: D o not add to previous draw Performed By: #### 0 0071, 31071, 37255, 43891 #### [facility] [address] [place] [address], [place] Potassium [Moles/Vol] 3.4 mmol/L Low 3.5-5.1 [facility] Comment on above: Order Comment: No: D o not add to previous draw Performed By: #### 0 0071, 52544, 17197, 87809 #### [facility] [address] [place] [address], [facility] Sodium [Moles/Vol] 138 mmol/L Normal 136-145 [facility] Comment on above: Order Comment: No: D o not add to previous draw Performed By: #### 0 0071, 78042, 57232, 68151 #### [facility] [address] [place] [address], [facility] Urea nitrogen [Mass/Vol] 23 mg/dL Normal 7-25 [facility] Comment on above: Order Comment: No: D o not add to previous draw Performed By: #### 0 0071, 49765, 35391, 88648 #### [facility] [address] [place], [place] [address] [place] [address] CBC COMPLETE BLOOD COUNTon 03-13-2018 Erythrocyte distribution width (RBC) [Ratio] Unable to calculate Normal 11.5-15.0 [facility] Comment on above: Order Comment: No: D o not add to previous draw Performed By: #### 0 0071, 20202, 74863, 06147 #### [facility] [address] [place] [address], [facility] Hematocrit (Bld) [Volume fraction] 29.9 % Low 36.0-45.0 [facility] Comment on above: Order Comment: No: D o not add to previous draw Performed By: #### 0 0071, 67377, 07005, 81332 #### [facility] [address] [place] [address], [facility] Hemoglobin (Bld) [Mass/Vol] 9.5 g/dL Low 12.0-15.0 [facility] Comment on above: Order Comment: No: D o not add to previous draw Performed By: #### 0 0071, 37341, 67238, 25852 #### [facility] [address] [place] [address], [facility] MCH (RBC) [Entitic mass] 30.6 pg Normal 27.0-33.0 [facility] Comment on above: Order Comment: No: D o not add to previous draw Performed By: #### 0 0071, 53275, 09882, 84462 #### [facility] [address] [place] [address], [facility] MCHC (RBC) [Mass/Vol] 31.8 g/dL Low 32.0-35.0 [facility] Comment on above: Order Comment: No: D o not add to previous draw Performed By: #### 0 0071, 86739, 33807, 35630 #### [facility] [address] [facility] [place] [address], [facility] MCV (RBC) [Entitic vol] 96.5 fL Normal 82.0-98.0 [facility] Comment on above: Order Comment: No: D o not add to previous draw Performed By: #### 0 0071, 00925, 31040, 52024 #### [facility] [address] [facility] [place] [address], [facility] Nucleated RBC/100 WBC (Bld) [Ratio] 0 % Normal 0-0 [facility] Comment on above: Order Comment: No: D o not add to previous draw Performed By: #### 0 0071, 07457, 22333, 95449 #### [facility] [address] [facility] [place] [address], [place] PLAT CNT 209 10*3/uL Normal 150-400 [facility] Comment on above: Order Comment: No: D o not add to previous draw Performed By: #### 0 0071, 68879, 95268, 13526 #### [facility] [address] [place] [address], [facility] RBC (Bld) [#/Vol] 3.10 10*6/uL Low 3.80-5.00 [facility] Comment on above: Order Comment: No: D o not add to previous draw Performed By: #### 0 0071, 68651, 27714, 93750 #### [facility] [address] [place] [address], [facility] WBC (Bld) [#/Vol] 7.86 10*3/uL Normal 4.00-10.60 [facility] Comment on above: Order Comment: No: D o not add to previous draw Performed By: #### 0 0071, 81079, 80923, 02496 #### [facility] [address] [place] [address], [facility] BASIC METABOLIC PANELon 11-2 Calcium [Mass/Vol] 9.3 mg/dL Normal 8.6-10.3 [facility] Comment on above: Order Comment: No: D o not add to previous draw Performed By: #### 0 0071, 18580, 84226, 70211 #### [facility] [address] [place] [address], [place] Chloride [Moles/Vol] 103 mmol/L Normal 98-107 [facility] Comment on above: Order Comment: No: D o not add to previous draw Performed By: #### 0 0071, 37712, 60836, 26349 #### [facility] [address] [place] [address], [place] CO2 [Moles/Vol] 32 mmol/L High 21-31 [facility] Comment on above: Order Comment: No: D o not add to previous draw Performed By: #### 0 0071, 10392, 40990, 69483 #### [facility] [address] [place] [address], [place] Creatinine [Mass/Vol] 1.14 mg/dL Normal 0.60-1.20 [facility] Comment on above: Order Comment: No: D o not add to previous draw Performed By: #### 0 0071, 84037, 00800, 63505 #### [facility] [address] [place] [address], [place] GFR/1.73 sq M predicted among blacks MDRD (S/P/Bld) [Vol rate/Area] 56 ml/min/1.73sq m Abnormal >60 [facility] Comment on above: Order Comment: No: D o not add to previous draw Result Comment: Calc ulation may not be valid for patients over 70 years Performed By: #### 0 0071, 58573, 70910, 58894 #### [facility] [address] [place] [address], [place] GFR/1.73 sq M predicted among non-blacks MDRD (S/P/Bld) [Vol rate/Area] 46 ml/min/1.73sq m Abnormal >60 [facility] Comment on above: Order Comment: No: D o not add to previous draw Result Comment: Calc ulation may not be valid for patients over 70 years Performed By: #### 0 0071, 61123, 94204, 90269 #### [facility] [address] [place] [address], [place] Glucose [Mass/Vol] 93 mg/dL Normal 70-100 [facility] Comment on above: Order Comment: No: D o not add to previous draw Performed By: #### 0 0071, 63116, 41480, 93178 #### [facility] [address] [place] [address], [place] Potassium [Moles/Vol] 3.5 mmol/L Normal 3.5-5.1 [facility] Comment on above: Order Comment: No: D o not add to previous draw Performed By: #### 0 0071, 10525, 96848, 49297 #### [facility] [address] [place] [address], [place] Sodium [Moles/Vol] 142 mmol/L Normal 136-145 [facility] Comment on above: Order Comment: No: D o not add to previous draw Performed By: #### 0 0071, 05447, 23363, 46490 #### [facility] [address] [place] [address], [facility] Urea nitrogen [Mass/Vol] 27 mg/dL High 7-25 [facility] Comment on above: Order Comment: No: D o not add to previous draw Performed By: #### 0 0071, 46746, 16774, 82181 #### [facility] [address] [place] [address], [facility] CBC COMPLETE BLOOD COUNTon 03-11-2018 Erythrocyte distribution width (RBC) [Ratio] Unable to calculate Normal 11.5-15.0 [facility] Comment on above: Order Comment: No: D o not add to previous draw Performed By: #### 0 0071, 17584, 12583, 50306 #### [facility] [address] [place] [address], [facility] Hematocrit (Bld) [Volume fraction] 27.8 % Low 36.0-45.0 [facility] Comment on above: Order Comment: No: D o not add to previous draw Performed By: #### 0 0071, 81344, 39628, 44206 #### [facility] [address] [place] [address], [facility] Hemoglobin (Bld) [Mass/Vol] 8.4 g/dL Low 12.0-15.0 [facility] Comment on above: Order Comment: No: D o not add to previous draw Performed By: #### 0 0071, 70031, 03906, 17081 #### [facility] [address] [place] [address], [facility] MCH (RBC) [Entitic mass] 29.8 pg Normal 27.0-33.0 [facility] Comment on above: Order Comment: No: D o not add to previous draw Performed By: #### 0 0071, 99440, 44012, 54521 #### [facility] [address] MCHC (RBC) [Mass/Vol] 30.2 g/dL Low 32.0-35.0 [facility] Comment on above: Order Comment: No: D o not add to previous draw Performed By: #### 0 0071, 67521, 30361, 71732 #### [facility] [address] [facility] [place] [address], [facility] MCV (RBC) [Entitic vol] 98.6 fL High 82.0-98.0 [facility] Comment on above: Order Comment: No: D o not add to previous draw Performed By: #### 0 0071, 06817, 62335, 92589 #### [facility] [address] [facility] [place] [address], [facility] Nucleated RBC/100 WBC (Bld) [Ratio] 0 % Normal 0-0 [facility] Comment on above: Order Comment: No: D o not add to previous draw Performed By: #### 0 0071, 24972, 54477, 41780 #### [facility] [address] [facility] [place] [address], [facility] PLAT CNT 205 10*3/uL Normal 150-400 [facility] Comment on above: Order Comment: No: D o not add to previous draw Performed By: #### 0 0071, 00084, 95754, 67038 #### [facility] [address] [facility] [place] [address], [facility] RBC (Bld) [#/Vol] 2.82 10*6/uL Low 3.80-5.00 [facility] Comment on above: Order Comment: No: D o not add to previous draw Performed By: #### 0 0071, 37897, 36592, 30538 #### [facility] [address] [place] [address], [facility] WBC (Bld) [#/Vol] 7.35 10*3/uL Normal 4.00-10.60 [facility] Comment on above: Order Comment: No: D o not add to previous draw Performed By: #### 0 0071, 59349, 45476, 45357 #### [facility] [address] [place] [address], [facility] BASIC METABOLIC PANELon 11-2 Calcium [Mass/Vol] 9.0 mg/dL Normal 8.6-10.3 [facility] Comment on above: Order Comment: No: D o not add to previous draw Performed By: #### 0 0071, 20645, 59738, 19834 #### [facility] [address] [place] [address], [facility] Chloride [Moles/Vol] 106 mmol/L Normal 98-107 [facility] Comment on above: Order Comment: No: D o not add to previous draw Performed By: #### 0 0071, 52692, 29649, 79266 #### [facility] [address] [place] [address], [facility] CO2 [Moles/Vol] 29 mmol/L Normal 21-31 [facility] Comment on above: Order Comment: No: D o not add to previous draw Performed By: #### 0 0071, 63647, 02221, 58629 #### [facility] [address] [place] [address], [facility] Creatinine [Mass/Vol] 1.33 mg/dL High 0.60-1.20 [facility] Comment on above: Order Comment: No: D o not add to previous draw Performed By: #### 0 0071, 91494, 75300, 82391 #### [facility] [address] [place] [address], [facility] GFR/1.73 sq M predicted among blacks MDRD (S/P/Bld) [Vol rate/Area] 47 ml/min/1.73sq m Abnormal >60 [facility] Comment on above: Order Comment: No: D o not add to previous draw Result Comment: Calc ulation may not be valid for patients over 70 years Performed By: #### 0 0071, 90722, 09993, 68215 #### [facility] [address] [place] [address], [place] GFR/1.73 sq M predicted among non-blacks MDRD (S/P/Bld) [Vol rate/Area] 39 ml/min/1.73sq m Abnormal >60 [facility] Comment on above: Order Comment: No: D o not add to previous draw Result Comment: Calc ulation may not be valid for patients over 70 years Performed By: #### 0 0071, 94368, 93303, 48500 #### [facility] [address] [place] [address], [place] Glucose [Mass/Vol] 92 mg/dL Normal 70-100 [facility] Comment on above: Order Comment: No: D o not add to previous draw Performed By: #### 0 0071, 87021, 74203, 04580 #### [facility] [address] [place] [address], [place] Potassium [Moles/Vol] 3.9 mmol/L Normal 3.5-5.1 [facility] Comment on above: Order Comment: No: D o not add to previous draw Performed By: #### 0 0071, 41801, 17773, 67161 #### [facility] [address] [place] [address], [place] Sodium [Moles/Vol] 141 mmol/L Normal 136-145 [facility] Comment on above: Order Comment: No: D o not add to previous draw Performed By: #### 0 0071, 85943, 92366, 81185 #### [facility] [address] [place] [address], [place] Urea nitrogen [Mass/Vol] 34 mg/dL High 7-25 [facility] Comment on above: Order Comment: No: D o not add to previous draw Performed By: #### 0 0071, 87523, 04000, 08894 #### [facility] [address] [place] [address], [facility] CBC COMPLETE BLOOD COUNTon 03-10-2018 Erythrocyte distribution width (RBC) [Ratio] ---- Normal 11.5-15.0 [facility] Comment on above: Order Comment: No: D o not add to previous draw Performed By: #### 0 0071, 06669, 84679, 60933 #### [facility] [address] [place] [address], [facility] Hematocrit (Bld) [Volume fraction] 27.6 % Low 36.0-45.0 [facility] Comment on above: Order Comment: No: D o not add to previous draw Performed By: #### 0 0071, 87005, 42544, 73421 #### [facility] [address] [place] [address], [facility] Hemoglobin (Bld) [Mass/Vol] 8.2 g/dL Low 12.0-15.0 [facility] Comment on above: Order Comment: No: D o not add to previous draw Performed By: #### 0 0071, 91864, 56396, 94853 #### [facility] [address] [place] [address], [facility] MCH (RBC) [Entitic mass] 29.6 pg Normal 27.0-33.0 [facility] Comment on above: Order Comment: No: D o not add to previous draw Performed By: #### 0 0071, 73640, 14206, 42811 #### [facility] [address] [place] [address], [facility] MCHC (RBC) [Mass/Vol] 29.7 g/dL Low 32.0-35.0 [facility] Comment on above: Order Comment: No: D o not add to previous draw Performed By: #### 0 0071, 57663, 87237, 62727 #### [facility] [address] [place] [address], [place] MCV (RBC) [Entitic vol] 99.6 fL High 82.0-98.0 [facility] Comment on above: Order Comment: No: D o not add to previous draw Performed By: #### 0 0071, 96175, 52860, 53686 #### [facility] [address] [place] [address], [facility] Nucleated RBC/100 WBC (Bld) [Ratio] 0 % Normal 0-0 [facility] Comment on above: Order Comment: No: D o not add to previous draw Performed By: #### 0 0071, 18570, 63069, 46120 #### [facility] [address] [place] [address], [facility] PLAT CNT 213 10*3/uL Normal 150-400 [facility] Comment on above: Order Comment: No: D o not add to previous draw Performed By: #### 0 0071, 56555, 88612, 18066 #### [facility] [address] [place] [address], [facility] RBC (Bld) [#/Vol] 2.77 10*6/uL Low 3.80-5.00 [facility] Comment on above: Order Comment: No: D o not add to previous draw Performed By: #### 0 0071, 56285, 29773, 97144 #### [facility] [address] [place] [address], [facility] WBC (Bld) [#/Vol] 7.75 10*3/uL Normal 4.00-10.60 [facility] Comment on above: Order Comment: No: D o not add to previous draw Performed By: #### 0 0071, 89140, 17202, 37883 #### [facility] [address] [place] [address], [facility] CBC COMPLETE BLOOD COUNTon 03-09-2018 Erythrocyte distribution width (RBC) [Ratio] 27.1 % High 11.5-15.0 [facility] Comment on above: Order Comment: No: D o not add to previous draw Performed By: #### 0 0071, 36654, 97373, 24771 #### [facility] [address] [place] [address], [facility] Hematocrit (Bld) [Volume fraction] 29.0 % Low 36.0-45.0 [facility] Comment on above: Order Comment: No: D o not add to previous draw Performed By: #### 0 0071, 63425, 43350, 42050 #### [facility] [address] [place] [address], [facility] Hemoglobin (Bld) [Mass/Vol] 8.9 g/dL Low 12.0-15.0 [facility] Comment on above: Order Comment: No: D o not add to previous draw Performed By: #### 0 0071, 48390, 44205, 05954 #### [facility] [address] [place] [address], [facility] MCH (RBC) [Entitic mass] 30.5 pg Normal 27.0-33.0 [facility] Comment on above: Order Comment: No: D o not add to previous draw Performed By: #### 0 0071, 48866, 58497, 86860 #### [facility] [address] [place] [address], [facility] MCHC (RBC) [Mass/Vol] 30.7 g/dL Low 32.0-35.0 [facility] Comment on above: Order Comment: No: D o not add to previous draw Performed By: #### 0 0071, 00877, 38615, 10731 #### [facility] [address] [place] [address], [facility] MCV (RBC) [Entitic vol] 99.3 fL High 82.0-98.0 [facility] Comment on above: Order Comment: No: D o not add to previous draw Performed By: #### 0 0071, 14889, 66479, 36651 #### [facility] [address] Nucleated RBC/100 WBC (Bld) [Ratio] 0 % Normal 0-0 [facility] Comment on above: Order Comment: No: D o not add to previous draw Performed By: #### 0 0071, 13268, 57505, 02688 #### [facility] [address] [place] [address], [facility] PLAT CNT 232 10*3/uL Normal 150-400 [facility] Comment on above: Order Comment: No: D o not add to previous draw Performed By: #### 0 0071, 70746, 39471, 17879 #### [facility] [address] [place] [address], [facility] RBC (Bld) [#/Vol] 2.92 10*6/uL Low 3.80-5.00 [facility] Comment on above: Order Comment: No: D o not add to previous draw Performed By: #### 0 0071, 30162, 18513, 24978 #### [facility] [address] [place] [address], [facility] WBC (Bld) [#/Vol] 9.20 10*3/uL Normal 4.00-10.60 [facility] Comment on above: Order Comment: No: D o not add to previous draw Performed By: #### 0 0071, 95083, 76936, 12069 #### [facility] [address] COMP METABOLIC PANELon 01-07 Albumin [Mass/Vol] 3.7 g/dL Normal 3.5-5.7 [facility] Comment on above: Performed By: #### 0 0071, 77191, 15073, 73821 #### [facility] [address] [facility] [place] [address], [facility] ALKALINE PHOSPH 107 IU/L High 34-104 [facility] Comment on above: Performed By: #### 0 0071, 42277, 61781, 78963 #### [facility] [address] [place] [address], [place] ALT [Catalytic activity/Vol] 16 U/L Normal 7-52 [facility] Comment on above: Performed By: #### 0 0071, 98507, 19956, 11958 #### [facility] [address] [place] [address], [place] AST [Catalytic activity/Vol] 22 U/L Normal 13-39 [facility] Comment on above: Performed By: #### 0 0071, 90401, 20766, 63859 #### [facility] [address] [place] [address], [place] Bilirubin [Mass/Vol] 1.1 mg/dL High 0.3-1.0 [facility] Comment on above: Performed By: #### 0 0071, 44989, 64420, 96873 #### [facility] [address] [place] [address], [place] Calcium [Mass/Vol] 8.8 mg/dL Normal 8.6-10.3 [facility] Comment on above: Performed By: #### 0 0071, 07214, 51212, 45613 #### [facility] [address] [place] [address], [place] Chloride [Moles/Vol] 107 mmol/L Normal 98-107 [facility] Comment on above: Performed By: #### 0 0071, 05533, 32583, 75578 #### [facility] [address] [place] [address], [place] CO2 [Moles/Vol] 28 mmol/L Normal 21-31 [facility] Comment on above: Performed By: #### 0 0071, 78470, 86306, 80070 #### [facility] [address] [place] [address], [place] Creatinine [Mass/Vol] 1.73 mg/dL High 0.60-1.20 [facility] Comment on above: Performed By: #### 0 0071, 67344, 72888, 39822 #### [facility] [address] [place] [address], [place] GFR/1.73 sq M predicted among blacks MDRD (S/P/Bld) [Vol rate/Area] 34 ml/min/1.73sq m Abnormal >60 [facility] Comment on above: Result Comment: Calc ulation may not be valid for patients over 70 years Performed By: #### 0 0071, 04603, 48344, 80639 #### [facility] [address] [place] [address], [place] GFR/1.73 sq M predicted among non-blacks MDRD (S/P/Bld) [Vol rate/Area] 28 ml/min/1.73sq m Abnormal >60 [facility] Comment on above: Result Comment: Calc ulation may not be valid for patients over 70 years Performed By: #### 0 0071, 40280, 27446, 85539 #### [facility] [address] [place] [address], [place] Glucose [Mass/Vol] 98 mg/dL Normal 70-100 [facility] Comment on above: Performed By: #### 0 0071, 21345, 88477, 03237 #### [facility] [address] [place] [address], [place] Potassium [Moles/Vol] 4.6 mmol/L Normal 3.5-5.1 [facility] Comment on above: Performed By: #### 0 0071, 97329, 57845, 09600 #### [facility] [address] [place] [address], [place] Protein [Mass/Vol] 6.6 g/dL Normal 6.0-8.3 [facility] Comment on above: Performed By: #### 0 0071, 20334, 18057, 91753 #### [facility] [address] Sodium [Moles/Vol] 141 mmol/L Normal 136-145 [facility] Comment on above: Performed By: #### 0 0071, 28537, 40290, 34537 #### [facility] [address] Urea nitrogen [Mass/Vol] 42 mg/dL High 7-25 [facility] Comment on above: Performed By: #### 0 0071, 07600, 27009, 54308 #### [facility] [address] Cardiovascular Lab Reporton 01-07-2019 Cardiovascular Lab Report [facility] Patient Name: [facility] MR #: [id number] Physician: Kevon Trejo Abd Department of MD [facility] Service Date: 01/07/2019 Division of Birthdate: 1940 Cardiology Room #: [id number] Adult Cardiovascular Services [place] [address] Cardiovascular Laboratory Report DRIVER UTILITY WORKER: Dr. Dedrick Washington, clinique counter manager. INDICATION: This is an 78-year-old female with [...] The patient was also notified that a clinique counter manager will be assisting during the course of [...] to the right internal jugular vein. Then, [place] sheath was inserted 6-Belarusian x 11 cm. Then, under fluoroscopy guidance, [...] P/Kevon Serrano MD Date Trans: 01/07/2019 03:58 P/sha [id number] cc: Edu Odonnell D.O. [address] [facility] [place] [address] Normal [facility] MAGNESIUM BLOODon 01-07-2019 Magnesium [Mass/Vol] 1.9 mg/dL Normal 1.9-2.7 [facility] Comment on above: Order Comment: No: D o not add to previous draw Performed By: #### 0 0071, 43235, 06723, 07816 #### [facility] [address] PHOSPHORUS BLOODon 9 Phosphate [Mass/Vol] 2.8 mg/dL Normal 2.5-5.0 [facility] Comment on above: Order Comment: No: D o not add to previous draw Performed By: #### 0 0071, 16672, 25811, 63488 #### [facility] [address] APTTon 01-06-2019 aPTT Coag (Bld) [Time] 33.6 s Normal 25.0-35.0 [facility] Comment on above: Order Comment: [...] THIS PURPOSE. Performed By: #### 0 0071, 47696, 12763, 45312 #### [facility] [address] BASIC METABOLIC PANELon 12-19 Calcium [Mass/Vol] 8.8 mg/dL Normal 8.6-10.3 [facility] Comment on above: Order Comment: No: D o not add to previous draw Performed By: #### 0 0071, 03101, 08487, 13734 #### [facility] [address] Chloride [Moles/Vol] 103 mmol/L Normal 98-107 [facility] Comment on above: Order Comment: No: D o not add to previous draw Performed By: #### 0 0071, 82751, 57276, 13727 #### [facility] [address] [place] [address], [place] CO2 [Moles/Vol] 24 mmol/L Normal 21-31 [facility] Comment on above: Order Comment: No: D o not add to previous draw Performed By: #### 0 0071, 53505, 78362, 43440 #### [facility] [address] [place] [address], [facility] Creatinine [Mass/Vol] 3.14 mg/dL High 0.60-1.20 [facility] Comment on above: Order Comment: No: D o not add to previous draw Performed By: #### 0 0071, 81209, 50009, 21447 #### [facility] [address] [place] [address], [facility] GFR/1.73 sq M predicted among blacks MDRD (S/P/Bld) [Vol rate/Area] 17 ml/min/1.73sq m Abnormal >60 [facility] Comment on above: Order Comment: No: D o not add to previous draw Result Comment: Calc ulation may not be valid for patients over 70 years Performed By: #### 0 0071, 25326, 97951, 83570 #### [facility] [address] [place] [address], [place] GFR/1.73 sq M predicted among non-blacks MDRD (S/P/Bld) [Vol rate/Area] 14 ml/min/1.73sq m Abnormal >60 [facility] Comment on above: Order Comment: No: D o not add to previous draw Result Comment: Calc ulation may not be valid for patients over 70 years Performed By: #### 0 0071, 78778, 15698, 08812 #### [facility] [address] [place] [address], [facility] Glucose [Mass/Vol] 123 mg/dL High 70-100 [facility] Comment on above: Order Comment: No: D o not add to previous draw Performed By: #### 0 0071, 90456, 93059, 41940 #### [facility] [address] [place] [address], [facility] Potassium [Moles/Vol] 4.5 mmol/L Normal 3.5-5.1 [facility] Comment on above: Order Comment: No: D o not add to previous draw Performed By: #### 0 0071, 53279, 49773, 77896 #### [facility] [address] [facility] [place] [address], [facility] Sodium [Moles/Vol] 135 mmol/L Low 136-145 [facility] Comment on above: Order Comment: No: D o not add to previous draw Performed By: #### 0 0071, 73428, 22682, 49701 #### [facility] [address] [facility]. [address] Urea nitrogen [Mass/Vol] 60 mg/dL High 7-25 [facility] Comment on above: Order Comment: No: D o not add to previous draw Performed By: #### 0 0071, 30050, 99591, 79790 #### [facility] [address] [facility] [place] [address], [facility] CBC W/DIFFon 01-06-2019 ABS BASOPHILS 0.0 10*3/uL Normal 0.0-0.2 [facility] Comment on above: Order Comment: No: D o not add to previous draw Performed By: #### 0 0071, 58334, 26624, 29152 #### [facility] [address] [facility] [place] [address], [facility] ABS IMM GRANS 0.1 10*3/uL Normal 0.0-0.2 [facility] Comment on above: Order Comment: No: D o not add to previous draw Performed By: #### 0 0071, 68154, 18670, 83656 #### [facility] [address] [place] [address], [facility] ABS NEUTROPHILS 6.9 10*3/uL Normal 1.6-7.6 [facility] Comment on above: Order Comment: No: D o not add to previous draw Performed By: #### 0 0071, 87268, 07685, 99443 #### [facility] [address] [place] [address], [facility] ACANTHOCYTES Slight Normal [facility] Comment on above: Order Comment: No: D o not add to previous draw Performed By: #### 0 0071, 73737, 44857, 46490 #### [facility] [address] [place] [address], [facility] ANISO Marked Normal [facility] Comment on above: Order Comment: No: D o not add to previous draw Performed By: #### 0 0071, 93060, 47225, 14448 #### [facility] [address] [place] [address], [facility] Basophils/100 WBC (Bld) 0.2 % Normal 0.0-1.0 [facility] Comment on above: Order Comment: No: D o not add to previous draw Performed By: #### 0 0071, 81648, 48083, 36938 #### [facility] [address] [place] [address], [facility] ELLIPTOCYTES Slight Normal [facility] Comment on above: Order Comment: No: D o not add to previous draw Performed By: #### 0 0071, 74394, 16248, 89452 #### [facility] [address] [place] [address], [facility] Eosinophils (Bld) [#/Vol] 0.2 10*3/uL Normal 0.0-0.5 [facility] Comment on above: Order Comment: No: D o not add to previous draw Performed By: #### 0 0071, 30815, 45945, 48735 #### [facility] [address] [facility] [place] [address], [facility] Eosinophils/100 WBC (Bld) 1.6 % Normal 0.0-6.0 [facility] Comment on above: Order Comment: No: D o not add to previous draw Performed By: #### 0 0071, 44124, 25692, 86639 #### [facility] [address] [facility] [place], [place] [id number] [place] [address] Erythrocyte distribution width (RBC) [Ratio] 27.6 % High 11.5-15.0 [facility] Comment on above: Order Comment: No: D o not add to previous draw Performed By: #### 0 0071, 15767, 21119, 38734 #### [facility] [address] [facility] [address] Hematocrit (Bld) [Volume fraction] 27.2 % Low 36.0-45.0 [facility] Comment on above: Order Comment: No: D o not add to previous draw Performed By: #### 0 0071, 74256, 49713, 01435 #### [facility] [address] [facility] [place] [address], [facility] Hemoglobin (Bld) [Mass/Vol] 8.2 g/dL Low 12.0-15.0 [facility] Comment on above: Order Comment: No: D o not add to previous draw Performed By: #### 0 0071, 66255, 91254, 44125 #### [facility] [address] [facility] [place] [address], [facility] IMMATURE GRANS 0.5 % Normal 0.0-1.0 [facility] Comment on above: Order Comment: No: D o not add to previous draw Performed By: #### 0 0071, 90797, 92055, 32553 #### [facility] [address] [place], [place] [facility], [facility] Lymphocytes (Bld) [#/Vol] 1.2 10*3/uL Normal 1.2-4.0 [facility] Comment on above: Order Comment: No: D o not add to previous draw Performed By: #### 0 0071, 81231, 65771, 91482 #### [facility] [address] [place] [id number], [facility] Lymphocytes/100 WBC (Bld) 12.5 % Low 20.0-45.0 [facility] Comment on above: Order Comment: No: D o not add to previous draw Performed By: #### 0 0071, 00526, 67962, 27745 #### [facility] [address] [facility] [place] [address], [facility] MCH (RBC) [Entitic mass] 29.5 pg Normal 27.0-33.0 [facility] Comment on above: Order Comment: No: D o not add to previous draw Performed By: #### 0 0071, 49380, 65166, 11516 #### [facility] [address] [facility] [place] [address], [facility] MCHC (RBC) [Mass/Vol] 30.1 g/dL Low 32.0-35.0 [facility] Comment on above: Order Comment: No: D o not add to previous draw Performed By: #### 0 0071, 27945, 93189, 20588 #### [facility] [address] [facility] [place] [id number], [facility] MCV (RBC) [Entitic vol] 97.8 fL Normal 82.0-98.0 [facility] Comment on above: Order Comment: No: D o not add to previous draw Performed By: #### 0 0071, 27479, 69768, 67008 #### [facility] [address] [place] [address], [facility] Monocytes (Bld) [#/Vol] 1.4 10*3/uL High 0.1-1.0 [facility] Comment on above: Order Comment: No: D o not add to previous draw Performed By: #### 0 0071, 95970, 44261, 93369 #### [facility] [address] [place] [address], [facility] MONOS 14.5 % High 5.0-12.0 [facility] Comment on above: Order Comment: No: D o not add to previous draw Performed By: #### 0 0071, 26711, 69921, 03320 #### [facility] [address] [place] [address], [facility] Neutrophils/100 WBC (Bld) 70.7 % Normal 40.0-72.0 [facility] Comment on above: Order Comment: No: D o not add to previous draw Performed By: #### 0 0071, 56524, 13329, 14006 #### [facility] [address] [place] [address], [facility] Nucleated RBC/100 WBC (Bld) [Ratio] 0 % Normal 0-0 [facility] Comment on above: Order Comment: No: D o not add to previous draw Performed By: #### 0 0071, 16199, 25283, 68242 #### [facility] [address] [facility] [place] [address], [facility] OVALOCYTES Slight Normal [facility] Comment on above: Order Comment: No: D o not add to previous draw Performed By: #### 0 0071, 45548, 78764, 11131 #### [facility] [address] [place] [address], [place] PLAT CNT 236 10*3/uL Normal 150-400 [facility] Comment on above: Order Comment: No: D o not add to previous draw Performed By: #### 0 0071, 43879, 52385, 85077 #### [facility] [address] [place] [address], [place] POIK Moderate Normal [facility] Comment on above: Order Comment: No: D o not add to previous draw Performed By: #### 0 0071, 60204, 43795, 08237 #### [facility] [address] [place] [address], [facility] POLY Slight Normal [facility] Comment on above: Order Comment: No: D o not add to previous draw Performed By: #### 0 0071, 63884, 63670, 88349 #### [facility] [address] [place] [address], [facility] RBC (Bld) [#/Vol] 2.78 10*6/uL Low 3.80-5.00 [facility] Comment on above: Order Comment: No: D o not add to previous draw Performed By: #### 0 0071, 12259, 52304, 13504 #### [facility] [address] [place] [address], [facility] SCHISTOCYTES Slight Normal [facility] Comment on above: Order Comment: No: D o not add to previous draw Performed By: #### 0 0071, 17434, 52230, 90777 #### [facility] [address] [place] [address], [facility] WBC (Bld) [#/Vol] 9.76 10*3/uL Normal 4.00-10.60 [facility] Comment on above: Order Comment: No: D o not add to previous draw Performed By: #### 0 0071, 80792, 80668, 72625 #### [facility] [address] [facility]. [address] CPKon 01-06-2019 CK [Catalytic activity/Vol] 26 U/L Low 30-223 [facility] Comment on above: Performed By: #### 0 0071, 98643, 19371, 35794 #### [facility] [address] [place] [address], [facility] FERRITINon 01-06-2019 Ferritin [Mass/Vol] 288 ng/mL Normal 11-307 [facility] Comment on above: Performed By: #### 0 0071, 35042, 61686, 22040 #### [facility] [address] MAGNESIUM BLOODon 01-06-2019 Magnesium [Mass/Vol] 2.1 mg/dL Normal 1.9-2.7 [facility] Comment on above: Order Comment: No: D o not add to previous draw Performed By: #### 0 0071, 94674, 01658, 29202 #### [facility] [address] [place] [address], [facility] PHOSPHORUS BLOODon 9 Phosphate [Mass/Vol] 3.9 mg/dL Normal 2.5-5.0 [facility] Comment on above: Order Comment: No: D o not add to previous draw Performed By: #### 0 0071, 34763, 57286, 41442 #### [facility] [address] [facility] PROTHROMBIN TIMEon 9 INR Coag (PPP) [Relative time] 2.22 {INR} High 0.91-1.16 [facility] Comment on above: Order Comment: [...] CHEST 1995;108:231S-246S. Performed By: #### 0 0071, 13269, 61103, 13707 #### [facility] [address] [facility] [place] [address], [facility] PT Coag (PPP) [Time] 25.0 s High 12.3-14.8 [facility] Comment on above: Order Comment: No: D o not add to previous draw Result Comment: ALL RESULTS MUST BE INTERPRETED WITH RESPECT TO BLOOD DRAWING ARTIFACT OR DILUTION ERROR OF ANTICOAGULANT AT THE TIME OF SAMPLING. Performed By: #### 0 0071, 38094, 25088, 05753 #### [facility] [address] [facility]. [address] TIBC- INCLUDES IRONon 2018 FE SATURATION 25 % Normal 20-50 [facility] Comment on above: Performed By: #### 0 0071, 10111, 46354, 76443 #### [facility] [address] [facility] [place] [address], [facility] Iron [Mass/Vol] 87 ug/dL Normal 50-212 [facility] Comment on above: Performed By: #### 0 0071, 32397, 57056, 03803 #### [facility] [address] [facility] [place] [address], [facility] TIBC 345 mcg/dL Normal 250-450 [facility] Comment on above: Performed By: #### 0 0071, 46406, 88235, 94980 #### [facility] [address] [facility] [place] [address], [facility] UIBC 258 mcg/dL Normal 155-355 [facility] Comment on above: Performed By: #### 0 0071, 89773, 72940, 89302 #### [facility] [address] [facility] [place] [address], [facility] TRANSFERRINon 01-06-2019 Transferrin [Mass/Vol] 282 mg/dL Normal 203-362 [facility] Comment on above: Performed By: #### 0 0071, 81561, 84774, 48302 #### [facility] [address] [place] [address], [facility] ANAon 01-05-2019 Nuclear Ab IF (S) [Titer] <1:40 Normal <1:40,1:40 [facility] Comment on above: Order Comment: No: D o not add to previous draw Performed By: #### 0 0071, 56779, 80681, 84655 #### [facility] [address] [place] [address], [place] BASIC METABOLIC PANELon 12-19 Calcium [Mass/Vol] 8.5 mg/dL Low 8.6-10.3 [facility] Comment on above: Order Comment: No: D o not add to previous draw Performed By: #### 5 0608 #### [facility] [address] [place] [address], [place] Chloride [Moles/Vol] 103 mmol/L Normal 98-107 [facility] Comment on above: Order Comment: No: D o not add to previous draw Performed By: #### 5 0608 #### [facility] [address] [place] [address], [place] CO2 [Moles/Vol] 24 mmol/L Normal 21-31 [facility] Comment on above: Order Comment: No: D o not add to previous draw Performed By: #### 5 0608 #### [facility] [address] [place] [address], [place] Creatinine [Mass/Vol] 2.90 mg/dL High 0.60-1.20 [facility] Comment on above: Order Comment: No: D o not add to previous draw Performed By: #### 5 0608 #### [facility] [address] [place] [address], [place] GFR/1.73 sq M predicted among blacks MDRD (S/P/Bld) [Vol rate/Area] 19 ml/min/1.73sq m Abnormal >60 [facility] Comment on above: Order Comment: No: D o not add to previous draw Result Comment: Calc ulation may not be valid for patients over 70 years Performed By: #### 5 0608 #### [facility] [address] [place] [address], [place] GFR/1.73 sq M predicted among non-blacks MDRD (S/P/Bld) [Vol rate/Area] 16 ml/min/1.73sq m Abnormal >60 [facility] Comment on above: Order Comment: No: D o not add to previous draw Result Comment: Calc ulation may not be valid for patients over 70 years Performed By: #### 5 0608 #### [facility] [address] [place] [address], [place] Glucose [Mass/Vol] 142 mg/dL High 70-100 [facility] Comment on above: Order Comment: No: D o not add to previous draw Performed By: #### 5 0608 #### [facility] [address] [place] [address], [place] Potassium [Moles/Vol] 4.6 mmol/L Normal 3.5-5.1 [facility] Comment on above: Order Comment: No: D o not add to previous draw Performed By: #### 5 0608 #### [facility] [address] [place] [address], [place] Sodium [Moles/Vol] 134 mmol/L Low 136-145 [facility] Comment on above: Order Comment: No: D o not add to previous draw Performed By: #### 5 0608 #### [facility] [address] [place] [address], [place] Urea nitrogen [Mass/Vol] 53 mg/dL High 7-25 [facility] Comment on above: Order Comment: No: D o not add to previous draw Performed By: #### 5 0608 #### [facility] [address] BNP (B-TYPE NATRIURETIC PEPT LIVAN)on 01-05-2019 Natriuretic peptide B (Bld) [Mass/Vol] 616 pg/mL High 0-100 [facility] Comment on above: Order Comment: No: D o not add to previous draw Result Comment: Give n the appropriate clinical setting a BNP result of >100 pg/mL indicates congestive heart failure. Performed By: #### 5 0608 #### [facility] [address] CBC W/DIFFon 01-05-2019 ABS BASOPHILS 0.0 10*3/uL Normal 0.0-0.2 [facility] Comment on above: Performed By: #### 5 0608 #### [facility] [address] ABS IMM GRANS 0.1 10*3/uL Normal 0.0-0.2 [facility] Comment on above: Performed By: #### 5 0608 #### [facility] [address] [place] [address], [facility] ABS NEUTROPHILS 7.6 10*3/uL Normal 1.6-7.6 [facility] Comment on above: Performed By: #### 5 0608 #### [facility] [address] ACANTHOCYTES Slight Normal [facility] Comment on above: Performed By: #### 5 0608 #### [facility] [address] ANISO Marked Normal [facility] Comment on above: Performed By: #### 5 0608 #### [facility] [address] [place] [address], [facility] Basophils/100 WBC (Bld) 0.2 % Normal 0.0-1.0 [facility] Comment on above: Performed By: #### 5 0608 #### [facility] [address] [place] [address], [facility] THERESA CELLS Slight Normal [facility] Comment on above: Performed By: #### 5 0608 #### [facility] [address] [place] [address], [place] ELLIPTOCYTES Slight Normal [facility] Comment on above: Performed By: #### 5 0608 #### [facility] [address] [place] [address], [facility] Eosinophils (Bld) [#/Vol] 0.0 10*3/uL Normal 0.0-0.5 [facility] Comment on above: Performed By: #### 5 0608 #### [facility] [address] [place] [address], [facility] Eosinophils/100 WBC (Bld) 0.2 % Normal 0.0-6.0 [facility] Comment on above: Performed By: #### 5 0608 #### [facility] [address] [place] [address], [facility] Erythrocyte distribution width (RBC) [Ratio] 27.2 % High 11.5-15.0 [facility] Comment on above: Result Comment: Resu lt changed by [email or web address] on 01/05/2019 02:09. The previous value was ----. Performed By: #### 5 0608 #### [facility] [address] [place] [id number], [facility] Hematocrit (Bld) [Volume fraction] 27.5 % Low 36.0-45.0 [facility] Comment on above: Result Comment: Resu lt changed by [email or web address] on 01/05/2019 02:09. The previous value was 27.7. Performed By: #### 5 0608 #### [facility] [address] [place] [id number], [facility] Hemoglobin (Bld) [Mass/Vol] 8.2 g/dL Low 12.0-15.0 [facility] Comment on above: Performed By: #### 5 0608 #### [facility] [address] IMMATURE GRANS 0.6 % Normal 0.0-1.0 [facility] Comment on above: Performed By: #### 5 0608 #### [facility] [address] Lymphocytes (Bld) [#/Vol] 0.9 10*3/uL Low 1.2-4.0 [facility] Comment on above: Performed By: #### 5 0608 #### [facility] [address] Lymphocytes/100 WBC (Bld) 9.0 % Low 20.0-45.0 [facility] Comment on above: Performed By: #### 5 0608 #### [facility] [address] MCH (RBC) [Entitic mass] 29.3 pg Normal 27.0-33.0 [facility] Comment on above: Result Comment: Resu lt changed by [email or web address] on 01/05/2019 02:09. The previous value was 29.1. Performed By: #### 5 0608 #### [facility] [address] MCHC (RBC) [Mass/Vol] 29.8 g/dL Low 32.0-35.0 [facility] Comment on above: Result Comment: Resu lt changed by [email or web address] on 01/05/2019 02:09. The previous value was 29.6. Performed By: #### 5 0608 #### [facility] [address] MCV (RBC) [Entitic vol] 98.2 fL High 82.0-98.0 [facility] Comment on above: Performed By: #### 5 0608 #### [facility] [address] [place] [address], [facility] Monocytes (Bld) [#/Vol] 1.1 10*3/uL High 0.1-1.0 [facility] Comment on above: Performed By: #### 5 0608 #### [facility] [address] [place] [address], [facility] MONOS 11.8 % Normal 5.0-12.0 [facility] Comment on above: Performed By: #### 5 0608 #### [facility] [address] [facility] [place] [address], [facility] Neutrophils/100 WBC (Bld) 78.2 % High 40.0-72.0 [facility] Comment on above: Performed By: #### 5 0608 #### [facility] [address] [facility] [place] [address], [facility] Nucleated RBC/100 WBC (Bld) [Ratio] 0 % Normal 0-0 [facility] Comment on above: Performed By: #### 5 0608 #### [facility] 3000 [facility] [place] [address], [facility] OTHER 1 Checked by Los navarro M.D. Normal [facility] Comment on above: Result Comment: Resu lt changed by BARBIE on 01/05/2019 09:19. The previous value was Preliminary report; verified report to follow. Performed By: #### 5 0608 #### [facility] [address] [facility] [place] [address], [facility] OVALOCYTES Slight Normal [facility] Comment on above: Performed By: #### 5 0608 #### [facility] [address] [place] [id number], [facility] PLAT CNT 263 10*3/uL Normal 150-400 [facility] Comment on above: Performed By: #### 5 0608 #### [facility] [address] [place] [address], [facility] POIK Moderate Normal [facility] Comment on above: Performed By: #### 5 0608 #### [facility] [address] [place] [address], [facility] RBC (Bld) [#/Vol] 2.80 10*6/uL Low 3.80-5.00 [facility] Comment on above: Result Comment: Resu lt changed by [email or web address] on 01/05/2019 02:09. The previous value was 2.82. Performed By: #### 5 0608 #### [facility] [address] [facility] [place] [address], [facility] SCHISTOCYTES Slight Normal [facility] Comment on above: Performed By: #### 5 0608 #### [facility] [address] [place] [address], [facility] WBC (Bld) [#/Vol] 9.70 10*3/uL Normal 4.00-10.60 [facility] Comment on above: Result Comment: Resu lt changed by [email or web address] on 01/05/2019 02:09. The previous value was 9.82. Performed By: #### 5 0608 #### [facility] [address] [facility] [place] [address], [facility] COMPLEMENT 3on 01-05-2019 COMPLEMENT 3 89 mg/dL Normal 79-152 [facility] Comment on above: Order Comment: No: D o not add to previous draw Performed By: #### 0 0071, 51534, 58947, 98907 #### [facility] [address] [place] [address], [facility] COMPLEMENT 4on 01-05-2019 COMPLEMENT 4 16 mg/dL Normal 16-38 [facility] Comment on above: Order Comment: No: D o not add to previous draw Performed By: #### 0 0071, 30860, 03173, 51593 #### [facility] [address] [place] [address], [place] CT CHEST WO CONTRASTon 01-05 CT CHEST WO CONTRAST [facility] Department of Radiology [address] [place] [address] == Patient Name: JENIFER HERNANDEZ : 1940 Sex: F Age: Race: NA Pt. Location: [id number] Patient Status: I Ordered Date: 01/05/2019 8:15:00 [...] anasarca. Electronically signed by:Christina Jules. Transcribed by: [email or web address], User Resident: Electronically Signed by: CHRISTINA JULES @ 01/06/2019 11:13 AM Normal [facility] Comment on above: Order Comment: No: D o not add to previous draw IMMUNOFIXATION BLOODon 01-05 IgA [Mass/Vol] 233 mg/dL Normal 60-413 [facility] Comment on above: Order Comment: No: D o not add to previous draw Performed By: #### 0 0071, 11818, 95690, 62294 #### [facility] [address] [place] [address], [place] IgG [Mass/Vol] 1240 mg/dL Normal 591-1540 [facility] Comment on above: Order Comment: No: D o not add to previous draw Performed By: #### 0 0071, 68106, 77626, 34514 #### [facility] [address] [place] [address], [place] IgM [Mass/Vol] 52 mg/dL Low 54-285 [facility] Comment on above: Order Comment: No: D o not add to previous draw Performed By: #### 0 0071, 20453, 83416, 78757 #### [facility] [address] [place] [address], [facility] IMMUNOFIXATION Serum Immunofixation reveals: A NORMAL PATTERN. SEE SEPARATE REPORT Normal [facility] Comment on above: Order Comment: No: D o not add to previous draw Performed By: #### 0 0071, 60986, 79849, 99306 #### [facility] [address] [place] [address], [facility] KAPPA LIGHT CHN 7.65 mg/dL High 0.33-1.94 [facility] Comment on above: Order Comment: No: D o not add to previous draw Result Comment: KF R epeated for verification. Performed By: #### 0 0071, 26498, 90979, 60762 #### [facility] [address] [place] [address], [facility] KAPPA/LAMDBA RATIO 2.37 RATIO High 0.26-1.65 [facility] Comment on above: Order Comment: No: D o not add to previous draw Result Comment: For patients with renal impairment, use a kappa/lambda ratio of 0.37-3.10 Performed By: #### 0 0071, 58026, 99887, 12689 #### [facility] [address] [place] [address], [facility] LAMBDA LIGHT CHN 3.23 mg/dL High 0.57-2.63 [facility] Comment on above: Order Comment: No: D o not add to previous draw Result Comment: LF R epeated for verification. Performed By: #### 0 0071, 84125, 93228, 11253 #### [facility] [address] [place] [address], [facility] OSMOLALITY URINEon 9 Osmolality [Osmolality] 325 mOsm/kg Normal 50-1400 [facility] Comment on above: Order Comment: No: D o not add to previous draw Performed By: #### 0 0071, 29154, 56018, 48969 #### [facility] [address] [place] [address], [place] PROTEIN ELECT Joseph 01-05-2019 Protein [Mass/Vol] 5.9 g/dL Low 6.0-8.3 [facility] Comment on above: Order Comment: No: D o not add to previous draw Performed By: #### 0 0071, 62839, 20642, 48530 #### [facility] [address] [place] [address], [place] Protein [Mass/Vol] Normal [facility] Comment on above: Order Comment: No: D o not add to previous draw Result Comment: Hypo albuminemia and greatly elevated alpha 2 fraction suggests nephrosis. Performed By: #### 0 0071, 15880, 06384, 51854 #### [facility] [address] [place] [address], [place] PROTEIN ELECT URon 9 Protein [Mass/Vol] No abnormal bands seen. Normal [facility] Comment on above: Order Comment: No: D o not add to previous draw Performed By: #### 0 0071, 92390, 91293, 47136 #### [facility] [address] [place] [address], [place] Protein [Mass/Vol] 379.0 mg/dL Normal [facility] Comment on above: Order Comment: No: D o not add to previous draw Result Comment: Ther e are no established reference values for random urine specimens Performed By: #### 0 0071, 19985, 93293, 53157 #### [facility] [address] [place] [address], [place] SODIUM URINE RANDOMon 2018 Sodium (U) [Moles/Vol] 14 mmol/L Normal [facility] Comment on above: Order Comment: No: D o not add to previous draw Result Comment: Ther e are no established reference values for random urine specimens Performed By: #### 0 0071, 58305, 86108, 93486 #### [facility] [address] [place] [address], [facility] URINALYSIS REFLEXon 01-06-20 19 Appearance (U) CLOUDY Abnormal CLEAR [facility] Comment on above: Order Comment: No: D o not add to previous draw Performed By: #### 0 0071, 55665, 90376, 19681 #### [facility] [address] [place] [address], [facility] Bilirubin [Mass/Vol] Negative Normal NEGATIVE [facility] Comment on above: Order Comment: No: D o not add to previous draw Performed By: #### 0 0071, 94133, 47452, 70149 #### [facility] [address] [place] [address], [facility] BLOOD Negative Normal NEGATIVE [facility] Comment on above: Order Comment: No: D o not add to previous draw Performed By: #### 0 0071, 57035, 76072, 73679 #### [facility] [address] [facility] [place] [place] [address], [facility] CALCIUM OXALATE CRYSTAL OCC Abnormal NONE SEEN [facility] Comment on above: Order Comment: No: D o not add to previous draw Performed By: #### 0 0071, 86928, 77809, 55398 #### [facility] [address] [facility] [place] [address], [facility] Color (U) FARHEEN Abnormal YELLOW [facility] Comment on above: Order Comment: No: D o not add to previous draw Performed By: #### 0 0071, 04109, 12061, 87225 #### [facility] [address] [place] [address], [facility] EPIS MANY Abnormal FEW,OCC,NONE SEEN [facility] Comment on above: Order Comment: No: D o not add to previous draw Performed By: #### 0 0071, 59769, 25949, 17166 #### [facility] [address] [place] [address], [place] Glucose [Mass/Vol] Negative Normal NEGATIVE [facility] Comment on above: Order Comment: No: D o not add to previous draw Performed By: #### 0 0071, 77256, 68221, 88777 #### [facility] [address] [place] [address], [place] GRANULAR CASTS 6-8 Abnormal NONE SEEN [facility] Comment on above: Order Comment: No: D o not add to previous draw Performed By: #### 0 0071, 83981, 61725, 61514 #### [facility] [address] [place] [address], [facility] HYALINE CASTS 4-6 Abnormal NONE SEEN [facility] Comment on above: Order Comment: No: D o not add to previous draw Performed By: #### 0 0071, 84828, 59077, 69601 #### [facility] [address] [place] [address], [place] KETONE Negative Normal NEGATIVE [facility] Comment on above: Order Comment: No: D o not add to previous draw Performed By: #### 0 0071, 32699, 97367, 44355 #### [facility] [address] [place] [address], [place] LEUK ARASH LARGE Abnormal NEGATIVE [facility] Comment on above: Order Comment: No: D o not add to previous draw Performed By: #### 0 0071, 03596, 23645, 71852 #### [facility] [address] [place] [address], [place] MUCUS THREADS FEW Abnormal NONE SEEN [facility] Comment on above: Order Comment: No: D o not add to previous draw Performed By: #### 0 0071, 45293, 70174, 73765 #### [facility] [address] [place] [address], [place] Nitrite Ql (U) Negative Normal NEGATIVE [facility] Comment on above: Order Comment: No: D o not add to previous draw Performed By: #### 0 0071, 84133, 09339, 56496 #### [facility] [address] [place] [address], [facility] pH (Bld) 5.0 Normal 5.0-8.0 [facility] Comment on above: Order Comment: No: D o not add to previous draw Performed By: #### 0 0071, 26878, 38620, 46102 #### [facility] [address] [place] [address], [facility] Protein (U) [Mass/Vol] 100 mg/dL Abnormal NEGATIVE [facility] Comment on above: Order Comment: No: D o not add to previous draw Performed By: #### 0 0071, 24169, 97767, 68469 #### [facility] [address] [place] [address], [facility] RBC (U) [#/Vol] 0-2 Abnormal NONE SEEN [facility] Comment on above: Order Comment: No: D o not add to previous draw Performed By: #### 0 0071, 71192, 98926, 08642 #### [facility] [address] [facility] [place] [address], [facility] SPEC GRAV 1.015 Normal 1.015-1.020 [facility] Comment on above: Order Comment: No: D o not add to previous draw Performed By: #### 0 0071, 97080, 21840, 12444 #### [facility] [address] [place] [address], [facility] UA COMMENT 2 2-4 Waxy casts Normal [facility] Comment on above: Order Comment: No: D o not add to previous draw Performed By: #### 0 0071, 19031, 64667, 15898 #### [facility] [address] [place] [address], [facility] WBC UA 51-100 Abnormal NONE SEEN [facility] Comment on above: Order Comment: No: D o not add to previous draw Performed By: #### 0 0071, 28212, 81323, 96647 #### [place] [address], [facility] URINE CONCEPCION STAIN/EOSon EOSINOPHIL SMEAR NONE SEEN Normal NSN [facility] Comment on above: Order Comment: No: D o not add to previous draw [place] Normal [facility] Comment on above: Order Comment: No: D o not add to previous draw Result Comment: Test Performed by [employer] [address] [place] [address] [phone] - Qokdrjib 01/06/2019 17:38 US RENALon 01-05-2019 US RENAL [facility] Department of Radiology [address] [place] [address] == Patient Name: JENIFER HERNANDEZ : 1940 Sex: F Age: Race: NA Pt. Location: [id number] Patient Status: I Ordered Date: 01/05/2019 2:15:00 AM Completed Date: 01/05/2019 10:07 AM Requesting Provider: KENNETH NICHOLS Attending Provider: KENNEDI MARSHALL Report Copy To: Signs & Symptoms: Increased Creatinine History: See Comments Comments: Other, ANSELMO Exam: US RENAL == Addendum Begins The first line of the impression should read, No hydronephrosis identified. Electronically signed by:Los Lutz. Addendum Ends US RENAL 01/05/2019 10:07 AM [...] Right sided pleural effusion. Electronically signed by:Los Lutz. Transcribed by: [email or web address], User Resident: Electronically Signed by: LOS LUTZ @ 01/05/2019 03:14 PM Normal [facility] Comment on above: Order Comment: No: D o not add to previous draw BASIC METABOLIC PANELon 11-0 Calcium [Mass/Vol] 9.2 mg/dL Normal 8.6-10.3 [facility] Comment on above: Order Comment: No: D o not add to previous draw Performed By: #### 5 0608 #### [facility] [address] [place] [address], [place] Chloride [Moles/Vol] 106 mmol/L Normal 98-107 [facility] Comment on above: Order Comment: No: D o not add to previous draw Performed By: #### 5 0608 #### [facility] [address] [place] [address], [place] CO2 [Moles/Vol] 31 mmol/L Normal 21-31 [facility] Comment on above: Order Comment: No: D o not add to previous draw Performed By: #### 5 0608 #### [facility] [address] [place] [address], [place] Creatinine [Mass/Vol] 1.01 mg/dL Normal 0.60-1.20 [facility] Comment on above: Order Comment: No: D o not add to previous draw Performed By: #### 5 0608 #### [facility] [address] [place] [address], [place] GFR/1.73 sq M predicted among blacks MDRD (S/P/Bld) [Vol rate/Area] mL/min/{1.73_m2} Normal >60 [facility] Comment on above: Order Comment: No: D o not add to previous draw Result Comment: Calc ulation may not be valid for patients over 70 years Performed By: #### 5 0608 #### [facility] [address] [place] [address], [facility] GFR/1.73 sq M predicted among non-blacks MDRD (S/P/Bld) [Vol rate/Area] 53 ml/min/1.73sq m Abnormal >60 [facility] Comment on above: Order Comment: No: D o not add to previous draw Result Comment: Calc ulation may not be valid for patients over 70 years Performed By: #### 5 0608 #### [facility] [address] [place] [address], [place] Glucose [Mass/Vol] 93 mg/dL Normal 70-100 [facility] Comment on above: Order Comment: No: D o not add to previous draw Performed By: #### 5 0608 #### [facility] [address] [place] [address], [place] Potassium [Moles/Vol] 3.2 mmol/L Low 3.5-5.1 [facility] Comment on above: Order Comment: No: D o not add to previous draw Performed By: #### 5 0608 #### [facility] [address] [place] [address], [place] Sodium [Moles/Vol] 145 mmol/L Normal 136-145 [facility] Comment on above: Order Comment: No: D o not add to previous draw Performed By: #### 5 0608 #### [facility] [address] [place] [address], [facility] Urea nitrogen [Mass/Vol] 31 mg/dL High 7-25 [facility] Comment on above: Order Comment: No: D o not add to previous draw Performed By: #### 5 0608 #### [facility] [address] [place] [address], [facility] CBC COMPLETE BLOOD COUNTon 02-23-2018 Erythrocyte distribution width (RBC) [Ratio] 17.2 % High 11.5-15.0 [facility] Comment on above: Order Comment: No: D o not add to previous draw Performed By: #### 5 0608 #### [facility] [address] [place] [address], [facility] Hematocrit (Bld) [Volume fraction] 27.2 % Low 36.0-45.0 [facility] Comment on above: Order Comment: No: D o not add to previous draw Performed By: #### 5 0608 #### [facility] [address] [place] [address], [facility] Hemoglobin (Bld) [Mass/Vol] 7.9 g/dL Low 12.0-15.0 [facility] Comment on above: Order Comment: No: D o not add to previous draw Performed By: #### 5 0608 #### [facility] [address] [place] [address], [facility] MCH (RBC) [Entitic mass] 27.1 pg Normal 27.0-33.0 [facility] Comment on above: Order Comment: No: D o not add to previous draw Performed By: #### 5 0608 #### [facility] [address] [place] [address], [facility] MCHC (RBC) [Mass/Vol] 29.0 g/dL Low 32.0-35.0 [facility] Comment on above: Order Comment: No: D o not add to previous draw Performed By: #### 5 0608 #### [facility] [address] [place] [address], [facility] MCV (RBC) [Entitic vol] 93.2 fL Normal 82.0-98.0 [facility] Comment on above: Order Comment: No: D o not add to previous draw Performed By: #### 5 0608 #### [facility] [address] [place] [address], [facility] Nucleated RBC/100 WBC (Bld) [Ratio] 0 % Normal 0-0 [facility] Comment on above: Order Comment: No: D o not add to previous draw Performed By: #### 5 0608 #### [facility] [address] [facility] [place] [address], [facility] PLAT CNT 238 10*3/uL Normal 150-400 [facility] Comment on above: Order Comment: No: D o not add to previous draw Performed By: #### 5 0608 #### [facility] [address] [facility] [place] [address], [facility] RBC (Bld) [#/Vol] 2.92 10*6/uL Low 3.80-5.00 [facility] Comment on above: Order Comment: No: D o not add to previous draw Performed By: #### 5 0608 #### [facility] [address] [facility] [place] [id number], [facility] WBC (Bld) [#/Vol] 7.05 10*3/uL Normal 4.00-10.60 [facility] Comment on above: Order Comment: No: D o not add to previous draw Performed By: #### 5 0608 #### [facility] [address] [place] [id number], [facility] BASIC METABOLIC PANELon 11-0 Calcium [Mass/Vol] 9.5 mg/dL Normal 8.6-10.3 [facility] Comment on above: Order Comment: No: D o not add to previous draw Performed By: #### 5 0608 #### [facility] [address] [place] [address], [place] Chloride [Moles/Vol] 103 mmol/L Normal 98-107 [facility] Comment on above: Order Comment: No: D o not add to previous draw Performed By: #### 5 0608 #### [facility] [address] [place] [address], [place] CO2 [Moles/Vol] 34 mmol/L High 21-31 [facility] Comment on above: Order Comment: No: D o not add to previous draw Performed By: #### 5 0608 #### [facility] [address] [place] [address], [place] Creatinine [Mass/Vol] 1.09 mg/dL Normal 0.60-1.20 [facility] Comment on above: Order Comment: No: D o not add to previous draw Performed By: #### 5 0608 #### [facility] [address] [place] [address], [place] GFR/1.73 sq M predicted among blacks MDRD (S/P/Bld) [Vol rate/Area] 59 ml/min/1.73sq m Abnormal >60 [facility] Comment on above: Order Comment: No: D o not add to previous draw Result Comment: Calc ulation may not be valid for patients over 70 years Performed By: #### 5 0608 #### [facility] [address] [place] [address], [place] GFR/1.73 sq M predicted among non-blacks MDRD (S/P/Bld) [Vol rate/Area] 48 ml/min/1.73sq m Abnormal >60 [facility] Comment on above: Order Comment: No: D o not add to previous draw Result Comment: Calc ulation may not be valid for patients over 70 years Performed By: #### 5 0608 #### [facility] [address] [place] [address], [place] Glucose [Mass/Vol] 149 mg/dL High 70-100 [facility] Comment on above: Order Comment: No: D o not add to previous draw Performed By: #### 5 0608 #### [facility] [address] [place] [address], [facility] Potassium [Moles/Vol] 3.9 mmol/L Normal 3.5-5.1 [facility] Comment on above: Order Comment: No: D o not add to previous draw Performed By: #### 5 0608 #### [facility] [address] [place] [address], [facility] Sodium [Moles/Vol] 144 mmol/L Normal 136-145 [facility] Comment on above: Order Comment: No: D o not add to previous draw Performed By: #### 5 0608 #### [facility] [address] [place] [address], [facility] Urea nitrogen [Mass/Vol] 29 mg/dL High 7-25 [facility] Comment on above: Order Comment: No: D o not add to previous draw Performed By: #### 5 0608 #### [facility] [address] [place] [address], [facility] HEMATOCRITon 12-23-2018 Hematocrit (Bld) [Volume fraction] 28.3 % Low 36.0-45.0 [facility] Comment on above: Order Comment: No: D o not add to previous draw Performed By: #### 9 2088, [id number] ####[facility] [place] [address], [place] HEMOGLOBINon 12-23-2018 Hemoglobin (Bld) [Mass/Vol] 8.2 g/dL Low 12.0-15.0 [facility] Comment on above: Order Comment: No: D o not add to previous draw Performed By: #### 9 2088, [id number] ####[facility] [id number], [place] MAGNESIUM BLOODon 12-23-2018 Magnesium [Mass/Vol] 1.8 mg/dL Low 1.9-2.7 [facility] Comment on above: Order Comment: No: D o not add to previous draw Performed By: #### 1 0070, [id number] ####[facility] [place] [address], [facility] ANAon 12-22-2018 Nuclear Ab IF (S) [Titer] <1:40 Normal <1:40,1:40 [facility] Comment on above: Order Comment: No: D o not add to previous draw Performed By: #### 5 0608 #### [facility] [address] [place] [address], [facility] BASIC METABOLIC PANELon Calcium [Mass/Vol] 9.2 mg/dL Normal 8.6-10.3 [facility] Comment on above: Order Comment: No: D o not add to previous draw Performed By: #### 0 0071 ####[facility] [place] [address], [facility] Chloride [Moles/Vol] 103 mmol/L Normal 98-107 [facility] Comment on above: Order Comment: No: D o not add to previous draw Performed By: #### 0 0071 ####[facility] [place] [address], [place] CO2 [Moles/Vol] 30 mmol/L Normal 21-31 [facility] Comment on above: Order Comment: No: D o not add to previous draw Performed By: #### 0 0071 ####[facility] [place] [address], [place] Creatinine [Mass/Vol] 1.05 mg/dL Normal 0.60-1.20 [facility] Comment on above: Order Comment: No: D o not add to previous draw Performed By: #### 0 0071 ####[facility] [place] [address], [place] GFR/1.73 sq M predicted among blacks MDRD (S/P/Bld) [Vol rate/Area] mL/min/{1.73_m2} Normal >60 [facility] Comment on above: Order Comment: No: D o not add to previous draw Result Comment: Calc ulation may not be valid for patients over 70 years Performed By: #### 0 0071 ####[facility] [place] [address], [facility] GFR/1.73 sq M predicted among non-blacks MDRD (S/P/Bld) [Vol rate/Area] 50 ml/min/1.73sq m Abnormal >60 [facility] Comment on above: Order Comment: No: D o not add to previous draw Result Comment: Calc ulation may not be valid for patients over 70 years Performed By: #### 0 0071 ####[facility] [place] [address], [facility] Glucose [Mass/Vol] 116 mg/dL High 70-100 [facility] Comment on above: Order Comment: No: D o not add to previous draw Performed By: #### 0 0071 ####[facility] [facility] [place] [address], [facility] Potassium [Moles/Vol] 3.7 mmol/L Normal 3.5-5.1 [facility] Comment on above: Order Comment: No: D o not add to previous draw Performed By: #### 0 0071 ####[facility] [place] [address], [place] Sodium [Moles/Vol] 142 mmol/L Normal 136-145 [facility] Comment on above: Order Comment: No: D o not add to previous draw Performed By: #### 0 0071 ####[facility] [place] [address], [place] Urea nitrogen [Mass/Vol] 28 mg/dL High 7-25 [facility] Comment on above: Order Comment: No: D o not add to previous draw Performed By: #### 0 0071 ####[facility] [place] [address], [facility] COMPLEMENT 3on 12-22-2018 COMPLEMENT 3 123 mg/dL Normal 79-152 [facility] Comment on above: Order Comment: Yes: Add to Previous draw if able Performed By: #### 1 0238, [id number] ####[facility] [place] [address], [facility] COMPLEMENT 4on 12-22-2018 COMPLEMENT 4 18 mg/dL Normal 16-38 [facility] Comment on above: Order Comment: Yes: Add to Previous draw if able Performed By: #### 1 0238, [id number] ####[facility] [place] [address], [facility] HEMOGLOBINon 12-22-2018 Hemoglobin (Bld) [Mass/Vol] 7.8 g/dL Low 12.0-15.0 [facility] Comment on above: Order Comment: No: D o not add to previous draw Performed By: #### 9 2089 ####[facility] [place] [address], [facility] PROTEIN ELECT Joseph 12-22-2018 Protein [Mass/Vol] 6.2 g/dL Normal 6.0-8.3 [facility] Comment on above: Order Comment: Yes: Add to Previous draw if able Performed By: #### 4 1661 ####[facility] [place] [address], [facility] Protein [Mass/Vol] Normal [facility] Comment on above: Order Comment: Yes: Add to Previous draw if able Result Comment: Hypo albuminemia is seen. This may be dilutional (from I.V. fluids) or nutritional in origin. Performed By: #### 4 1661 ####[facility] [place] [address], [facility] BASIC METABOLIC PANELon 11-0 Calcium [Mass/Vol] 9.1 mg/dL Normal 8.6-10.3 [facility] Comment on above: Order Comment: No: D o not add to previous draw Performed By: #### 1 69, 78055 ####[facility] [place] [address], [facility] Chloride [Moles/Vol] 104 mmol/L Normal 98-107 [facility] Comment on above: Order Comment: No: D o not add to previous draw Performed By: #### 1 69, 84204 ####[facility] [place] [address], [place] CO2 [Moles/Vol] 30 mmol/L Normal 21-31 [facility] Comment on above: Order Comment: No: D o not add to previous draw Performed By: #### 1 69, 89468 ####[facility] [place] [address], [facility] Creatinine [Mass/Vol] 1.10 mg/dL Normal 0.60-1.20 [facility] Comment on above: Order Comment: No: D o not add to previous draw Performed By: #### 1 69, 92970 ####[facility] [place] [address], [facility] GFR/1.73 sq M predicted among blacks MDRD (S/P/Bld) [Vol rate/Area] 58 ml/min/1.73sq m Abnormal >60 [facility] Comment on above: Order Comment: No: D o not add to previous draw Result Comment: Calc ulation may not be valid for patients over 70 years Performed By: #### 1 69, 03009 ####[facility] [place] [address], [facility] GFR/1.73 sq M predicted among non-blacks MDRD (S/P/Bld) [Vol rate/Area] 47 ml/min/1.73sq m Abnormal >60 [facility] Comment on above: Order Comment: No: D o not add to previous draw Result Comment: Calc ulation may not be valid for patients over 70 years Performed By: #### 1 69, 86637 ####[facility] [place] [address], [facility] Glucose [Mass/Vol] 88 mg/dL Normal 70-100 [facility] Comment on above: Order Comment: No: D o not add to previous draw Performed By: #### 1 69, 01106 ####[facility] [place] [address], [facility] Potassium [Moles/Vol] 3.4 mmol/L Low 3.5-5.1 [facility] Comment on above: Order Comment: No: D o not add to previous draw Performed By: #### 1 69, 76394 ####[facility] [place] [address], [facility] Sodium [Moles/Vol] 142 mmol/L Normal 136-145 [facility] Comment on above: Order Comment: No: D o not add to previous draw Performed By: #### 1 69, 31119 ####[facility] [facility] [place] [address], [facility] Urea nitrogen [Mass/Vol] 33 mg/dL High 7-25 [facility] Comment on above: Order Comment: No: D o not add to previous draw Performed By: #### 1 69, 89097 ####[facility] [place] [address], [place] HEMOGLOBINon 12-21-2018 Hemoglobin (Bld) [Mass/Vol] 7.7 g/dL Low 12.0-15.0 [facility] Comment on above: Order Comment: No: D o not add to previous draw Performed By: #### 0 0071 #### [facility] [address] [place] [id number], [place] MAGNESIUM BLOODon 12-21-2018 Magnesium [Mass/Vol] 1.8 mg/dL Low 1.9-2.7 [facility] Comment on above: Order Comment: No: D o not add to previous draw Performed By: #### 1 0070, 34830 ####[facility] [place] [address], [facility] BASIC METABOLIC PANELon 11-0 Calcium [Mass/Vol] 9.3 mg/dL Normal 8.6-10.3 [facility] Comment on above: Order Comment: No: D o not add to previous draw Performed By: #### 0 0071 #### [facility] [address] [place] [address], [facility] Chloride [Moles/Vol] 102 mmol/L Normal 98-107 [facility] Comment on above: Order Comment: No: D o not add to previous draw Performed By: #### 0 0071 #### [facility] [address] [place] [address], [place] CO2 [Moles/Vol] 32 mmol/L High 21-31 [facility] Comment on above: Order Comment: No: D o not add to previous draw Performed By: #### 0 0071 #### [facility] [address] [place] [address], [facility] Creatinine [Mass/Vol] 1.10 mg/dL Normal 0.60-1.20 [facility] Comment on above: Order Comment: No: D o not add to previous draw Performed By: #### 0 0071 #### [facility] [address] [place] [address], [place] GFR/1.73 sq M predicted among blacks MDRD (S/P/Bld) [Vol rate/Area] 58 ml/min/1.73sq m Abnormal >60 [facility] Comment on above: Order Comment: No: D o not add to previous draw Result Comment: Calc ulation may not be valid for patients over 70 years Performed By: #### 0 0071 #### [facility] [address] [place] [address], [facility] GFR/1.73 sq M predicted among non-blacks MDRD (S/P/Bld) [Vol rate/Area] 47 ml/min/1.73sq m Abnormal >60 [facility] Comment on above: Order Comment: No: D o not add to previous draw Result Comment: Calc ulation may not be valid for patients over 70 years Performed By: #### 0 0071 #### [facility] [address] [place] [address], [facility] Glucose [Mass/Vol] 120 mg/dL High 70-100 [facility] Comment on above: Order Comment: No: D o not add to previous draw Performed By: #### 0 0071 #### [facility] [address] [place] [address], [facility] Potassium [Moles/Vol] 3.3 mmol/L Low 3.5-5.1 [facility] Comment on above: Order Comment: No: D o not add to previous draw Performed By: #### 0 0071 #### [facility] [address] [place] [address], [facility] Sodium [Moles/Vol] 142 mmol/L Normal 136-145 [facility] Comment on above: Order Comment: No: D o not add to previous draw Performed By: #### 0 0071 #### [facility] [address] [place] [address], [facility] Urea nitrogen [Mass/Vol] 36 mg/dL High 7-25 [facility] Comment on above: Order Comment: No: D o not add to previous draw Performed By: #### 0 0071 #### [facility] [address] [facility] [place] [address], [facility] CBC COMPLETE BLOOD COUNTon 02-19-2018 Erythrocyte distribution width (RBC) [Ratio] 15.8 % High 11.5-15.0 [facility] Comment on above: Order Comment: No: D o not add to previous draw Performed By: #### 0 0071 #### [facility] [address] [place] [address], [facility] Hematocrit (Bld) [Volume fraction] 25.4 % Low 36.0-45.0 [facility] Comment on above: Order Comment: No: D o not add to previous draw Performed By: #### 0 0071 #### [facility] [address] [place] [address], [facility] Hemoglobin (Bld) [Mass/Vol] 7.8 g/dL Low 12.0-15.0 [facility] Comment on above: Order Comment: No: D o not add to previous draw Performed By: #### 0 0071 #### [facility] [address] [place] [address], [facility] MCH (RBC) [Entitic mass] 27.1 pg Normal 27.0-33.0 [facility] Comment on above: Order Comment: No: D o not add to previous draw Performed By: #### 0 0071 #### [facility] [address] [facility] [place] [place] [address], [facility] MCHC (RBC) [Mass/Vol] 30.7 g/dL Low 32.0-35.0 [facility] Comment on above: Order Comment: No: D o not add to previous draw Performed By: #### 0 0071 #### [facility] [address] [facility] [place] [place] [address], [facility] MCV (RBC) [Entitic vol] 88.2 fL Normal 82.0-98.0 [facility] Comment on above: Order Comment: No: D o not add to previous draw Performed By: #### 0 0071 #### [facility] [address] [place] [address], [facility] Nucleated RBC/100 WBC (Bld) [Ratio] 0 % Normal 0-0 [facility] Comment on above: Order Comment: No: D o not add to previous draw Performed By: #### 0 0071 #### [facility] [address] [place] [address], [facility] PLAT CNT 227 10*3/uL Normal 150-400 [facility] Comment on above: Order Comment: No: D o not add to previous draw Performed By: #### 0 0071 #### [facility] [address] [place] [address], [facility] RBC (Bld) [#/Vol] 2.88 10*6/uL Low 3.80-5.00 [facility] Comment on above: Order Comment: No: D o not add to previous draw Performed By: #### 0 0071 #### [facility] [address] [place] [address], [facility] WBC (Bld) [#/Vol] 8.61 10*3/uL Normal 4.00-10.60 [facility] Comment on above: Order Comment: No: D o not add to previous draw Performed By: #### 0 0071 #### [facility] [address] [place] [address], [facility] MAGNESIUM BLOODon 12-20-2018 Magnesium [Mass/Vol] 1.9 mg/dL Normal 1.9-2.7 [facility] Comment on above: Order Comment: No: D o not add to previous draw Performed By: #### 0 0071 #### [facility] [address] [place] [address], [facility] BASIC METABOLIC PANELon Calcium [Mass/Vol] 9.2 mg/dL Normal 8.6-10.3 [facility] Comment on above: Order Comment: No: D o not add to previous draw Performed By: #### 5 0608 #### [facility] [address] [place] [address], [facility] Chloride [Moles/Vol] 103 mmol/L Normal 98-107 [facility] Comment on above: Order Comment: No: D o not add to previous draw Performed By: #### 5 0608 #### [facility] [address] [place] [address], [facility] CO2 [Moles/Vol] 30 mmol/L Normal 21-31 [facility] Comment on above: Order Comment: No: D o not add to previous draw Performed By: #### 5 0608 #### [facility] [address] [place] [address], [place] Creatinine [Mass/Vol] 1.27 mg/dL High 0.60-1.20 [facility] Comment on above: Order Comment: No: D o not add to previous draw Performed By: #### 5 0608 #### [facility] [address] [place] [address], [facility] GFR/1.73 sq M predicted among blacks MDRD (S/P/Bld) [Vol rate/Area] 49 ml/min/1.73sq m Abnormal >60 [facility] Comment on above: Order Comment: No: D o not add to previous draw Result Comment: Calc ulation may not be valid for patients over 70 years Performed By: #### 5 0608 #### [facility] [address] [place] [address], [facility] GFR/1.73 sq M predicted among non-blacks MDRD (S/P/Bld) [Vol rate/Area] 41 ml/min/1.73sq m Abnormal >60 [facility] Comment on above: Order Comment: No: D o not add to previous draw Result Comment: Calc ulation may not be valid for patients over 70 years Performed By: #### 5 0608 #### [facility] [address] [place] [address], [place] Glucose [Mass/Vol] 162 mg/dL High 70-100 [facility] Comment on above: Order Comment: No: D o not add to previous draw Performed By: #### 5 0608 #### [facility] [address] [place] [address], [facility] Potassium [Moles/Vol] 4.2 mmol/L Normal 3.5-5.1 [facility] Comment on above: Order Comment: No: D o not add to previous draw Performed By: #### 5 0608 #### [facility] [address] [place] [address], [facility] Sodium [Moles/Vol] 142 mmol/L Normal 136-145 [facility] Comment on above: Order Comment: No: D o not add to previous draw Performed By: #### 5 0608 #### [facility] [address] [place] [address], [facility] Urea nitrogen [Mass/Vol] 43 mg/dL High 7-25 [facility] Comment on above: Order Comment: No: D o not add to previous draw Performed By: #### 5 0608 #### [facility] [address] [place] [address], [facility] CREATININE URINE RANDOMon Creatinine [Mass/Vol] 32.0 mg/dL Normal [facility] Comment on above: Order Comment: No: D o not add to previous draw Result Comment: Ther e are no established reference values for random urine specimens Performed By: #### 0 0071 #### [facility] [address] [place] [id number], [facility] FERRITINon 12-19-2018 Ferritin [Mass/Vol] 20 ng/mL Normal 11-307 [facility] Comment on above: Order Comment: No: D o not add to previous draw Performed By: #### 0 0071 #### [facility] [address] [place] [address], [facility] HEMOGLOBINon 12-19-2018 Hemoglobin (Bld) [Mass/Vol] 6.8 g/dL Low 12.0-15.0 [facility] Comment on above: Order Comment: No: D o not add to previous draw Performed By: #### 5 0608 #### [facility] [address] [place] [address], [facility] MAGNESIUM BLOODon 12-19-2018 Magnesium [Mass/Vol] 1.6 mg/dL Low 1.9-2.7 [facility] Comment on above: Order Comment: No: D o not add to previous draw Performed By: #### 0 0071 #### [facility] [address] [place] [address], [facility] PROTEIN ELECT URon 9 Protein [Mass/Vol] 9.0 mg/dL Normal [facility] Comment on above: Order Comment: No: D o not add to previous draw Result Comment: Ther e are no established reference values for random urine specimens Performed By: #### 0 0071 #### [facility] [address] [facility]. [address] Protein [Mass/Vol] URINE PROTEIN ELECTROPHORESIS NOT DONE; T.P. <10 MG/DL Normal [facility] Comment on above: Order Comment: No: D o not add to previous draw Performed By: #### 0 0071 #### [facility] [address] [facility] [place] [address], [facility] TIBC- INCLUDES IRONon 2018 FE SATURATION 8 % Low 20-50 [facility] Comment on above: Order Comment: No: D o not add to previous draw Performed By: #### 5 0608 #### [facility] [address] [facility] [place] [address], [facility] Iron [Mass/Vol] 33 ug/dL Low 50-212 [facility] Comment on above: Order Comment: No: D o not add to previous draw Performed By: #### 5 0608 #### [facility] [address] [facility] [place] [address], [facility] TIBC 431 mcg/dL Normal 250-450 [facility] Comment on above: Order Comment: No: D o not add to previous draw Performed By: #### 5 0608 #### [facility] [address] [place] [address], [facility] UIBC 398 mcg/dL High 155-355 [facility] Comment on above: Order Comment: No: D o not add to previous draw Performed By: #### 5 0608 #### [facility] [address] [place] [address], [place] UA,MICROSCOPIC REQUIREDon Appearance (U) CLEAR Normal CLEAR [facility] Comment on above: Order Comment: No: D o not add to previous draw Performed By: #### 0 0071 #### [facility] [address] [place] [address], [place] Bilirubin [Mass/Vol] Negative Normal NEGATIVE [facility] Comment on above: Order Comment: No: D o not add to previous draw Performed By: #### 0 0071 #### [facility] [address] [place] [address], [facility] BLOOD Negative Normal NEGATIVE [facility] Comment on above: Order Comment: No: D o not add to previous draw Performed By: #### 0 0071 #### [facility] [address] [place] [address], [place] Color (U) STRAW Abnormal YELLOW [facility] Comment on above: Order Comment: No: D o not add to previous draw Performed By: #### 0 0071 #### [facility] [address] [place] [address], [place] EPIS MOD Abnormal FEW,OCC,NONE SEEN [facility] Comment on above: Order Comment: No: D o not add to previous draw Performed By: #### 0 0071 #### [facility] [address] [place] [address], [place] Glucose [Mass/Vol] Negative Normal NEGATIVE [facility] Comment on above: Order Comment: No: D o not add to previous draw Performed By: #### 0 0071 #### [facility] [address] [place] [address], [place] HYALINE CASTS 2 /LPF Abnormal NONE SEEN [facility] Comment on above: Order Comment: No: D o not add to previous draw Performed By: #### 0 0071 #### [facility] [address] [place] [address], [facility] KETONE Negative Normal NEGATIVE [facility] Comment on above: Order Comment: No: D o not add to previous draw Performed By: #### 0 0071 #### [facility] [address] [place] [address], [facility] LEUK ARASH Negative Normal NEGATIVE [facility] Comment on above: Order Comment: No: D o not add to previous draw Performed By: #### 0 0071 #### [facility] [address] [place] [address], [facility] Nitrite Ql (U) Negative Normal NEGATIVE [facility] Comment on above: Order Comment: No: D o not add to previous draw Performed By: #### 0 0071 #### [facility] [address] [place] [address], [facility] pH (Bld) 6.0 Normal 5.0-8.0 [facility] Comment on above: Order Comment: No: D o not add to previous draw Performed By: #### 0 0071 #### [facility] [address] [place] [address], [facility] Protein [Mass/Vol] Negative Normal NEGATIVE [facility] Comment on above: Order Comment: No: D o not add to previous draw Performed By: #### 0 0071 #### [facility] [address] [place] [address], [facility] RBC (Bld) [#/Vol] 0-2 Abnormal NONE SEEN [facility] Comment on above: Order Comment: No: D o not add to previous draw Performed By: #### 0 0071 #### [facility] [address] [place] [address], [facility] SPEC GRAV 1.008 Low 1.015-1.020 [facility] Comment on above: Order Comment: No: D o not add to previous draw Performed By: #### 0 0071 #### [address] WBC UA 0-2 Abnormal NONE SEEN [facility] Comment on above: Order Comment: No: D o not add to previous draw Performed By: #### 0 0071 #### [address] US RENALon 12-19-2018 RENAL [facility] Department of Radiology [address] [place] [id number] == Patient Name: JENIFER HERNANDEZ : 1940 Sex: F Age: Race: NA Pt. Location: [id number] Patient Status: I Ordered Date: 12/19/2018 1:20:00 [...] findings. Electronically signed by:Tyree Momin. Transcribed by: [email or web address], User Resident: JOSE CHASE Electronically Signed by: TYREE MOMIN @ 12/20/2018 03:17 PM I personally read this/these film(s) with this resident Normal [facility] Comment on above: Order Comment: No: D o not add to previous draw ANTI C3 DATon 12-18-2018 ANTI C3 SOUTH Negative Normal [facility] Comment on above: Performed By: #### 5 0608 #### [facility] [address] ANTI IGG DATon 12-18-2018 ANTI IGG SOUTH Negative Normal [facility] Comment on above: Performed By: #### 5 0608 #### [facility] [address] ANTIBODY IDENTIFICATIONon ANTIBODY ID C Normal [facility] Comment on above: Performed By: #### 5 0608 #### [facility] [address] BASIC METABOLIC PANELon 11-20 Calcium [Mass/Vol] 9.2 mg/dL Normal 8.6-10.3 [facility] Comment on above: Order Comment: No: D o not add to previous draw Performed By: #### 0 0071, 57221, 19894, 15148 #### [facility] [address] [place] [address], [place] Chloride [Moles/Vol] 98 mmol/L Normal 98-107 [facility] Comment on above: Order Comment: No: D o not add to previous draw Performed By: #### 0 0071, 40593, 51659, 59984 #### [facility] [address] [place] [address], [place] CO2 [Moles/Vol] 30 mmol/L Normal 21-31 [facility] Comment on above: Order Comment: No: D o not add to previous draw Performed By: #### 0 0071, 66477, 32589, 00427 #### [facility] [address] [place] [address], [place] Creatinine [Mass/Vol] 1.59 mg/dL High 0.60-1.20 [facility] Comment on above: Order Comment: No: D o not add to previous draw Performed By: #### 0 0071, 43587, 59017, 17515 #### [facility] [address] [place] [address], [place] GFR/1.73 sq M predicted among blacks MDRD (S/P/Bld) [Vol rate/Area] 38 ml/min/1.73sq m Abnormal >60 [facility] Comment on above: Order Comment: No: D o not add to previous draw Result Comment: Calc ulation may not be valid for patients over 70 years Performed By: #### 0 0071, 05596, 20181, 93184 #### [facility] [address] [place] [address], [place] GFR/1.73 sq M predicted among non-blacks MDRD (S/P/Bld) [Vol rate/Area] 31 ml/min/1.73sq m Abnormal >60 [facility] Comment on above: Order Comment: No: D o not add to previous draw Result Comment: Calc ulation may not be valid for patients over 70 years Performed By: #### 0 0071, 50996, 98462, 11323 #### [facility] [address] [place] [address], [place] Glucose [Mass/Vol] 115 mg/dL High 70-100 [facility] Comment on above: Order Comment: No: D o not add to previous draw Performed By: #### 0 0071, 76593, 10872, 41566 #### [facility] [address] [place] [address], [place] Potassium [Moles/Vol] 3.1 mmol/L Low 3.5-5.1 [facility] Comment on above: Order Comment: No: D o not add to previous draw Performed By: #### 0 0071, 44768, 78205, 08947 #### [facility] [address] [place] [address], [place] Sodium [Moles/Vol] 137 mmol/L Normal 136-145 [facility] Comment on above: Order Comment: No: D o not add to previous draw Performed By: #### 0 0071, 16889, 54820, 07599 #### [facility] [address] [place] [address], [place] Urea nitrogen [Mass/Vol] 53 mg/dL High 7-25 [facility] Comment on above: Order Comment: No: D o not add to previous draw Performed By: #### 0 0071, 15576, 15150, 21810 #### [facility] [address] [place] [address], [place] CBC COMPLETE BLOOD COUNTon Erythrocyte distribution width (RBC) [Ratio] 15.9 % High 11.5-15.0 [facility] Comment on above: Order Comment: No: D o not add to previous draw Performed By: #### 5 0608 #### [facility] [address] [place] [address], [place] Hematocrit (Bld) [Volume fraction] 21.4 % Low 36.0-45.0 [facility] Comment on above: Order Comment: No: D o not add to previous draw Performed By: #### 5 0608 #### [facility] [address] [place] [address], [facility] Hemoglobin (Bld) [Mass/Vol] 6.5 g/dL Low 12.0-15.0 [facility] Comment on above: Order Comment: No: D o not add to previous draw Performed By: #### 5 0608 #### [facility] [address] [facility] [place] [address], [facility] MCH (RBC) [Entitic mass] 26.5 pg Low 27.0-33.0 [facility] Comment on above: Order Comment: No: D o not add to previous draw Performed By: #### 5 0608 #### [facility] [address] [facility] [place] [address], [facility] MCHC (RBC) [Mass/Vol] 30.4 g/dL Low 32.0-35.0 [facility] Comment on above: Order Comment: No: D o not add to previous draw Performed By: #### 5 0608 #### [facility] [address] [facility] [place] [address], [facility] MCV (RBC) [Entitic vol] 87.3 fL Normal 82.0-98.0 [facility] Comment on above: Order Comment: No: D o not add to previous draw Performed By: #### 5 0608 #### [facility] [address] [facility] [place] [address], [facility] Nucleated RBC/100 WBC (Bld) [Ratio] 0 % Normal 0-0 [facility] Comment on above: Order Comment: No: D o not add to previous draw Performed By: #### 5 0608 #### [facility] [address] [place] [address], [facility] PLAT CNT 232 10*3/uL Normal 150-400 [facility] Comment on above: Order Comment: No: D o not add to previous draw Performed By: #### 5 0608 #### [facility] [address] [facility] [place] [address], [facility] RBC (Bld) [#/Vol] 2.45 10*6/uL Low 3.80-5.00 [facility] Comment on above: Order Comment: No: D o not add to previous draw Performed By: #### 5 0608 #### [facility] [address] [facility] [place] [address], [facility] WBC (Bld) [#/Vol] 7.40 10*3/uL Normal 4.00-10.60 [facility] Comment on above: Order Comment: No: D o not add to previous draw Performed By: #### 5 0608 #### [facility] [address] Cardiovascular Lab Reporton 12-18-2018 Cardiovascular Lab Report [facility] Patient Name: [facility] MR #: [id number] Physician: Herber Chi Department of Missy Flores Medicine Service Date: 12/17/2018 Division of Birthdate: 1940 Cardiology Room #: 3CD [id number] Adult Cardiovascular Services [place] [address] Cardiovascular Laboratory Report INDICATION: The patient is [...] signed informed consent. She was brought to cathode ray tube assembler in a fasting state. The right neck area was prepped and draped in usual fashion. Using ultrasound guidance and micropuncture technique, the right internal jugular vein was accessed. A 6-Belarusian x 11 cm sheath was placed. A 6-Belarusian Thompson catheter was used for right heart [...] her acute anemia. Electronically Signed by: Herber Flores M.D. 01/03/2019 11:11 A Herber Flores M.D. Date Dict: 12/17/2018/09:48 Becky/Herber Flores M.D. Date Trans: 12/18/2018 08:22 Becky/sha [id number] cc: Edu Odonnell D.O. [address] [facility] [address] Normal [facility] HEMOGLOBINon 12-18-2018 Hemoglobin (Bld) [Mass/Vol] 7.3 g/dL Low 12.0-15.0 [facility] Comment on above: Order Comment: No: D o not add to previous draw Performed By: #### 5 0608 #### [facility] [address] [place] [address], [facility] Hemoglobin (Bld) [Mass/Vol] 7.2 g/dL Low 12.0-15.0 [facility] Comment on above: Order Comment: No: D o not add to previous draw Performed By: #### 5 0608 #### [facility] [address] [place] [id number], [facility] Hemoglobin (Bld) [Mass/Vol] 6.9 g/dL Low 12.0-15.0 [facility] Comment on above: Order Comment: No: D o not add to previous draw Performed By: #### 9 2089 #### [facility] [address] [facility] [place] [address], [facility] IRON BLOODon 12-18-2018 Iron [Mass/Vol] 19 ug/dL Low 50-212 [facility] Comment on above: Order Comment: No: D o not add to previous draw Performed By: #### 0 0071, 63309, 06120, 17540 #### [facility] [address] [facility] [place] [address], [facility] MAGNESIUM BLOODon 12-18-2018 Magnesium [Mass/Vol] 1.8 mg/dL Low 1.9-2.7 [facility] Comment on above: Order Comment: No: D o not add to previous draw Performed By: #### 0 0071, 77399, 57315, 32083 #### [facility] [address] [facility] [place] [address], [facility] PHOSPHORUS BLOODon 9 Phosphate [Mass/Vol] 3.1 mg/dL Normal 2.5-5.0 [facility] Comment on above: Order Comment: No: D o not add to previous draw Performed By: #### 0 0071, 57996, 65559, 81524 #### [facility] [address] [place] [id number], [facility] RBC'S 2 UNITSon 12-18-2018 CROSSMATCH INTERP 1 COMP Normal [facility] Comment on above: Performed By: #### 5 0608 #### [facility] [address] [place] [address], [place] CROSSMATCH INTERP 2 COMP Normal [facility] Comment on above: Performed By: #### 5 0608 #### [facility] [address] [place] [address], [place] PRODUCT CODE 1 E0336 Normal [facility] Comment on above: Performed By: #### 5 0608 #### [facility] [address] [place] [address], [place] PRODUCT CODE 2 E0336 Normal [facility] Comment on above: Performed By: #### 5 0608 #### [facility] [address] [place] [address], [place] PRODUCT STATUS 1 PT Normal [facility] Comment on above: Result Comment: Resu lt changed by IF on 12/19/2018 09:14. The previous value was XM. Result changed by IF on 12/20/2018 00:30. The previous value was IS. Performed By: #### 5 0608 #### [facility] [address] [place] [address], [place] PRODUCT STATUS 2 RE Normal [facility] Comment on above: Result Comment: Resu lt changed by IF on 12/22/2018 07:27. The previous value was XM. Performed By: #### 5 0608 #### [facility] [address] [place] [address], [place] UNIT ABO 1 A Normal [facility] Comment on above: Performed By: #### 5 0608 #### [facility] [address] [place] [address], [place] UNIT ABO 2 A Normal [facility] Comment on above: Performed By: #### 5 0608 #### [facility] [address] [place] [address], [place] UNIT ID 1 [id number] Normal [facility] Comment on above: Performed By: #### 5 0608 #### [facility] [address] [place] [address], [facility] UNIT ID 2 [id number] Normal [facility] Comment on above: Performed By: #### 5 0608 #### [facility] [address] [place] [address], [facility] UNIT RH 1 Negative Normal [facility] Comment on above: Performed By: #### 5 0608 #### [facility] [address] [place] [address], [facility] UNIT RH 2 Negative Normal [facility] Comment on above: Performed By: #### 5 0608 #### [facility] [address] TYPE AND SCREENon 12-18-2018 ABO INTERPRETATION A Normal [facility] Comment on above: Performed By: #### 5 0608 #### [facility] [address] [place] [address], [facility] RH INTERPRETATION Positive Normal [facility] Comment on above: Performed By: #### 5 0608 #### [facility] [address] BASIC METABOLIC PANELon 10-3 Calcium [Mass/Vol] 9.5 mg/dL Normal 8.6-10.3 [facility] Comment on above: Order Comment: No: D o not add to previous draw Performed By: #### 0 0071 #### [facility] [address] [place] [address], [facility] Chloride [Moles/Vol] 95 mmol/L Low 98-107 [facility] Comment on above: Order Comment: No: D o not add to previous draw Performed By: #### 0 0071 #### [facility] [address] [place] [address], [place] CO2 [Moles/Vol] 29 mmol/L Normal 21-31 [facility] Comment on above: Order Comment: No: D o not add to previous draw Performed By: #### 0 0071 #### [facility] [address] [place] [address], [place] Creatinine [Mass/Vol] 2.01 mg/dL High 0.60-1.20 [facility] Comment on above: Order Comment: No: D o not add to previous draw Performed By: #### 0 0071 #### [facility] [address] [place] [address], [place] GFR/1.73 sq M predicted among blacks MDRD (S/P/Bld) [Vol rate/Area] 29 ml/min/1.73sq m Abnormal >60 [facility] Comment on above: Order Comment: No: D o not add to previous draw Result Comment: Calc ulation may not be valid for patients over 70 years Performed By: #### 0 0071 #### [facility] [address] [place] [address], [place] GFR/1.73 sq M predicted among non-blacks MDRD (S/P/Bld) [Vol rate/Area] 24 ml/min/1.73sq m Abnormal >60 [facility] Comment on above: Order Comment: No: D o not add to previous draw Result Comment: Calc ulation may not be valid for patients over 70 years Performed By: #### 0 0071 #### [facility] [address] [place] [address], [place] Glucose [Mass/Vol] 125 mg/dL High 70-100 [facility] Comment on above: Order Comment: No: D o not add to previous draw Performed By: #### 0 0071 #### [facility] [address] [place] [address], [place] Potassium [Moles/Vol] 2.8 mmol/L Low 3.5-5.1 [facility] Comment on above: Order Comment: No: D o not add to previous draw Performed By: #### 0 0071 #### [facility] [address] [place] [address], [facility] Sodium [Moles/Vol] 135 mmol/L Low 136-145 [facility] Comment on above: Order Comment: No: D o not add to previous draw Performed By: #### 0 0071 #### [facility] [address] [place] [address], [facility] Urea nitrogen [Mass/Vol] 62 mg/dL High 7-25 [facility] Comment on above: Order Comment: No: D o not add to previous draw Performed By: #### 0 0071 #### [facility] [address] [facility] CBC COMPLETE BLOOD COUNTon Erythrocyte distribution width (RBC) [Ratio] 15.8 % High 11.5-15.0 [facility] Comment on above: Order Comment: No: D o not add to previous draw Performed By: #### 5 0608 #### [facility] [address] [facility] [place] [address], [facility] Hematocrit (Bld) [Volume fraction] 24.7 % Low 36.0-45.0 [facility] Comment on above: Order Comment: No: D o not add to previous draw Performed By: #### 5 0608 #### [facility] [address] [facility] [place] [address], [facility] Hemoglobin (Bld) [Mass/Vol] 7.5 g/dL Low 12.0-15.0 [facility] Comment on above: Order Comment: No: D o not add to previous draw Performed By: #### 5 0608 #### [facility] [address] [place] [address], [facility] MCH (RBC) [Entitic mass] 26.8 pg Low 27.0-33.0 [facility] Comment on above: Order Comment: No: D o not add to previous draw Performed By: #### 5 0608 #### [facility] [address] [place] [address], [facility] MCHC (RBC) [Mass/Vol] 30.4 g/dL Low 32.0-35.0 [facility] Comment on above: Order Comment: No: D o not add to previous draw Performed By: #### 5 0608 #### [facility] [address] [place] [id number], [facility] MCV (RBC) [Entitic vol] 88.2 fL Normal 82.0-98.0 [facility] Comment on above: Order Comment: No: D o not add to previous draw Performed By: #### 5 0608 #### [facility] [address] [facility] [place] [address], [facility] Nucleated RBC/100 WBC (Bld) [Ratio] 0 % Normal 0-0 [facility] Comment on above: Order Comment: No: D o not add to previous draw Performed By: #### [id number] #### [facility] [address] [facility] [address] [place] [address], [facility] PLAT CNT 260 10*3/uL Normal 150-400 [facility] Comment on above: Order Comment: No: D o not add to previous draw Performed By: #### [id number] #### [facility] [address] [facility] [place] [address], [facility] RBC (Bld) [#/Vol] 2.80 10*6/uL Low 3.80-5.00 [facility] Comment on above: Order Comment: No: D o not add to previous draw Performed By: #### [id number] #### [facility] [address] [place] [id number], [facility] WBC (Bld) [#/Vol] 8.14 10*3/uL Normal 4.00-10.60 [facility] Comment on above: Order Comment: No: D o not add to previous draw Performed By: #### [id number] #### [address] CHEST AND LATERALon 12-18-19 CHEST AND LATERAL [facility] Department of Radiology [address] [place] [id number] == Patient Name: JENIFER HERNANDEZ : 1940 Sex: F Age: Race: NA Pt. Location: OUTP Patient Status: I Ordered Date: 12/17/2018 11:15:00 AM Completed Date: 12/17/2018 01:00 PM Requesting Provider: BEVERLY BROCK Attending Provider: HERBER FLORES V Report Copy To: Signs & Symptoms: [...] lungs Electronically signed by:Dori Olson. Transcribed by: [email or web address], User Resident: Electronically Signed by: DORI OLSON @ 12/17/2018 01:43 PM Normal [facility] Comment on above: Order Comment: R/O E ffusion History and Physicalon 12-17 History and Physical MR#: [id number] [facility] Pt. Name: Jenifer Hernandez Admitted: 12/17/2018 Date of : 1940 Attending Physician: Beverly Brock MD Room #: [id number] Discharge Date: HISTORY AND PHYSICAL CHIEF COMPLAINT: Shortness of breath. HISTORY OF PRESENT ILLNESS: This is an 78-year-old female with past medical history significant for diastolic congestive heart failure, history of coronary artery disease status post remote CABG, history of gastric/duodenal ulcer disease, and history of chronic atrial fibrillation, on Xarelto. The patient was evaluated with her rewinder operator helper recently for increased shortness of breath on [...] for that she was seen by a band maker. She thinks that she had an EGD [...] P Beverly Brock MD Date Dict: 12/17/2018/11:34 Becky/Beverly Brock MD Date Trans: 12/17/2018 12:28 P/sha [id number] [facility] Vital Signs Date Time Vital Sign Value Performing Clinician Lyndsey trevino 01-09-2024 14:06-0500 Body height 162.6 cm Shell Hemphill [employer] S[employer]Y OFFICER Work Phone: [facility] 01-09-2024 14:06-0500 Body mass index (BMI) [Ratio] 27.84 kg/m2 Shell Hemphill MARINE SAFETY OFFICER Work Phone: [facility] 01-09-2024 14:06-0500 Body temperature 99.5 [degF] Shell Hemphill MARINE SAFETY OFFICER Work Phone: [facility] 01-09-2024 14:06-0500 Body weight 73.57 kg Shell Hemphill MARINE SAFETY OFFICER Work Phone: [facility] 01-09-2024 14:06-0500 Diastolic blood pressure 64 mm[Hg] Shell Hemphill MARINE SAFETY OFFICER Work Phone: [facility] 01-09-2024 14:06-0500 Heart rate 88 /min Shell Hemphill MARINE SAFETY OFFICER Work Phone: [facility] 01-09-2024 14:06-0500 Respiratory rate 16 /min Shell Hemphill MARINE SAFETY OFFICER Work Phone: [facility] 01-09-2024 14:06-0500 SaO2% (BldA) [Mass fraction] 94 % Shell Hemphill MARINE SAFETY OFFICER Work Phone: [facility] 01-09-2024 14:06-0500 Systolic blood pressure 116 mm[Hg] Shell Hemphill MARINE SAFETY OFFICER Work Phone: [facility] Healthcare Encounters Encounter Date Encounter Type Care Provider Facility Start: 01-13-2024 End: 01-13-2024 ambulatory [facility] Start: 01-09-2024 End: 01-09-2024 Office outpatient visit 15 minutes Shell Hemphill MARINE SAFETY OFFICER Work Phone: [facility] Comment on above: Hypertension, unspec ified type (CMS/HCC) (Primary Dx); Other hyperlipidemia (CMS/HCC); Stage 3b chronic kidney disease (HCC) (CMS/HCC) Start: 01-09-2024 End: 01-09-2024 Bamboo flowsheet Shell Hemphill MARINE SAFETY OFFICER Work Phone: [facility] Start: 01-09-2024 End: 01-09-2024 Bamboo flowsheet Shell Hemphill MARINE SAFETY OFFICER Work Phone: [facility] Start: 01-09-2024 End: 01-09-2024 ambulatory SHELL WILSONK Not Available Start: 12-26-2023 End: 12-26-2023 Clinisync Result Encounter Generic External Data Provider [facility] Unsolicited Start: 12-26-2023 End: 12-26-2023 Clinisync Result Encounter Generic External Data Provider [facility] External [facility] Unsolicited Start: 12-18-2023 End: 12-18-2023 [facility] Start: 12-18-2023 End: 12-18-2023 Clinisync Result Encounter Generic External Data Provider [facility] External Department Unsolicited Start: 12-18-2023 End: 12-18-2023 Clinisync Result Encounter Generic External Data Provider [facility] External [facility] Unsolicited Start: 11-25-2023 End: 11-25-2023 Refill Shell Hemphill [employer]INE SAFETY OFFICER Work Phone: [facility] Comment on above: Hypercholesteremia ( CMS/HCC) (Primary Dx) Start: 10-14-2023 End: 10-14-2023 ambulatory SHELL HOLLEYTRICK Not Available Start: 09-25-2023 End: 09-25-2023 ambulatory [facility] Start: 09-10-2023 End: 09-10-2023 ambulatory [facility] Start: 06-14-2023 End: 06-14-2023 ambulatory [facility] Start: 05-21-2023 End: 05-21-2023 ambulatory SHAIKH KB Not Available Start: 05-06-2023 End: 05-06-2023 ambulatory [facility] Start: 04-25-2023 End: 04-25-2023 ambulatory SHAIKH JUNIORLEATHA Not Available Start: 01-31-2022 End: 02-01-[address] HERBER FLORES Facility:[facility] Start: 01-18-2022 End: 01-18-2022 ambulatory PETR MERLOS Facility:[facility] Start: 12-21-2021 End: 12-21-2021 ambulatory PERT MERLOS Facility:[facility] Start: 11-15-[address] EDU Antonio [...] Date Procedure Procedure Detail Performing Clinician Start: 12-26-2023 ALL BASIC METABOLIC PANEL Generic External Data Provider Start: 12-18-2023 ALL BASIC METABOLIC PANEL Generic External Data Provider Start: 02-01-2022 History of coronary artery bypass grafting History of coronary artery bypass graft Shell Hemphill NP Work Phone: Start: 01-12-2019 [employer] of Cardi ac Rhythm, Single MOSHRIK ABD [...] above: Performed By: #### [id number] #### [facility] [address] [place] [address], [facility] Start: 12-17-2018 MEASURE OF CARDIAC S AMPL \T\ PRESSURE, R HEART, PERC APPROACH HERBER FLORES Start: 12-17-2018 MEASUREMENT OF ARTER IAL FLOW, PULMONARY, PERC APPROACH HERBER FLORES Plan of Treatment Date Care Activity Detail Author Start: 04-13-2024 End: 04-13-2024 Patient encounter procedure 04/13/2024 2:00 PM EST Office Visit [facility] [address] [place] [address] Shell Hemphill, JEFFERY [address] [place] [address] [facility] Start: 01-09-2024 End: 01-09-2024 Patient encounter procedure [facility] Comment on above: Arrived Start: 10-20-2023 Influenza vaccination Influenza Vacc ine (#1) [facility] Start: 1946 Pneumococcal Vaccine : 65+ Years (1 of 2 - PCV) Pneumococcal Vaccine: 65+ Years (1 of 2 - PCV) [facility] Immunizations Immunization Date Immunization Notes Care Provider Fa gagety 01-11-2021 Pfizer Purple Cap SARS-CoV-2 Vaccination Shell Hemphill MARINE SAFETY OFFICER Work Phone: [facility] 06-30-2020 Pfizer Purple Cap SARS-CoV-2 Vaccination Shell Hemphill MARINE SAFETY OFFICER Work Phone: [facility] 06-09-2020 Pfizer Purple Cap SARS-CoV-2 Vaccination Shell Hemphill MARINE SAFETY OFFICER Work Phone: [facility] 11-04-2019 influenza, high dose seasonal, preservative-free Shell Hemphill MARINE SAFETY OFFICER Work Phone: [facility] 11-04-2019 influenza virus vaccine, unspecified formulation Shell Hemphill MARINE SAFETY OFFICER Work Phone: [facility] 04-30-2019 zoster vaccine recombinant Shell Hemphill MARINE SAFETY OFFICER Work Phone: [facility] 02-25-2019 zoster vaccine recombinant Shell Hemphill MARINE SAFETY OFFICER Work Phone: [facility] 10-27-2018 Seasonal trivalent influenza vaccine, adjuvanted, preservative free Shell Hemphill MARINE SAFETY OFFICER Work Phone: [facility] 10-13-2015 influenza, high dose seasonal, preservative-free Shell Hemphill MARINE SAFETY OFFICER Work Phone: [facility] Payers Date Payer Category Payer Private Health Insurance [id number] 2005 Medicare [id number] 1959 Medicare [id number] 1959 Self-pay 1959 Unknown [id number] 1940 Unknown [id number] 2.16.8 [id number] 1940 Unknown [id number] 2.16.8 [id number] 1940 Unknown [id number] 2.16.84 [id number] 1940 Unknown [id number] 2.16.84 [id number] 1940 Unknown [id number] 2.16.84 [id number] 1940 Unknown [id number] 2.16.84 [id number] 1938 Unknown [id number] 2.16.84 [id number] 1940 Unknown [id number] 2.16.84 [id number] 1940 Unknown [id number] 2.16.84 [id number] 1940 Unknown [id number] 2.16.84 [id number] 1940 Unknown [id number] 2.16.84 [id number] 1940 Unknown [id number] 2.16.84 [id number] 1940 Unknown [id number] 2.16.84 [id number] 1940 Unknown [id number] 2.16.84 [id number] 1940 Unknown [id number] 2.16.84 [id number] Social History Date Type Detail Facility Start: 05-21-2023 Tobacco smoking stat [facility] Never smoked tobacco [facility] Start: 05-21-2023 Tobacco use and exposure Smokeless tobacco non-user [facility] Start: 10-14-2023 End: 01-09-2024 Alcoholic beverage intake Lifetime non-drinker (finding) [facility] Start: 10-14-2023 End: 01-09-2024 History of Social function [facility] Start: 10-14-2023 End: 01-09-2024 Tobacco use panel [facility] Start: 1940 Sex assigned at Not on file [facility] NEGATED: Highlighted rowStart: NINF History of tobacco use Passive smoker [facility] Clinical Notes 12-21-2021 to 01-13-2024 Shell Hemphill, MARINE SAFETY OFFICER - 01/09/2024 2:41 PM Radhames Hemphill, MARINE SAFETY OFFICER - 01/09/2024 2:41 PM Radhames Hemphill, MARINE SAFETY OFFICER - 01/09/2024 2:41 PM Radhames Hemphill, MARINE SAFETY OFFICER - 01/09/2024 2:30 PM EST Note Date & Type Note Facility 01-13-2024 Note [place] [facility] Subjective Jenifer Hernandez is a 83 y.o. year old female patient being seen for 1 mo follow up chronic diastolic heart failure, valvular disease, CAD, and PAF. Dr. Chacon had her increase Bumex x 3 days, and return to baseline dose of 2mg bid. Had follow up BMP. She says she's been out of spironolactone for the past few days. Still denies chest pain, palpitations, and bleeding on Xarelto. Says her ZAMARRIPA is unchanged from last visit on 12/18/2023. Patient Active Problem List Diagnosis Chronic atrial fibrillation (CMS/HCC) Chronic diastolic congestive heart failure (CMS/HCC) Coronary artery disease involving capitan grande coronary artery of capitan grande heart without angina pectoris History of coronary artery bypass graft Pulmonary HTN (CMS/HCC) Nonrheumatic tricuspid valve regurgitation Mitral valve regurgitation Chronic fatigue Establishing care with new doctor, encounter for HTN (hypertension) Hypercholesteremia Hypertensive heart disease with heart failure (CMS/HCC) Shortness of breath CKD (chronic kidney disease) Pulmonary hypertension (CMS/HCC) Stage 3b chronic kidney disease (CMS/HCC) Family History Problem Relation Name Age [...] respond to it. She was admitted to [facility] with decompensated HF in 05/2018. Update [...] Normal right ventricular systolic function. The right wes (more content not included)... [facility] 01-09-2024 History of Present illness Narrative Associated Problem(s): HTN (hypertension) (CMS/HCC) Currently taking Metoprolol 100mg and Isosorbide 30mg Does not check BP at home; Denies orthostatic changes, dizziness, cough, shortness of breath, swelling in extremities. Continue current regimen. Given BP log, advised pt to record BP and bring log back with them to next visit. Associated Problem(s): Other hyperlipidemia (CMS/HCC) Currently taking atorvastatin 20mg Denies any myalgias. Continue current regimen. Associated Problem(s): Stage 3b chronic kidney disease (HCC) (CMS/HCC) eGFR is 32. 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 Likely r/t HF. Pt states she was unaware of this and has never been referred to or seen nephrology in the past. Referral sent to Nephrology in [place]. Pt did not follow up yet. Images from the original note were not included. Subjective Patient ID: Jenifer Hernandez is a 83 y.o. female who presents for Follow-up. HPI Specialists: Cardiology- Dr. Whatley HTN: Currently taking Metoprolol 100mg and Isosorbide 30mg Does not check BP at home; Denies orthostatic changes, dizziness, cough, shortness of breath, swelling in extremities. Continue current regimen. Given BP log, advised pt to record BP and bring log back with them to next visit. HLD: Currently taking atorvastatin 20mg Denies any myalgias. Continue current regimen. CKD: eGFR is 34. 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 Likely r/t HF. Pt states she was unaware of this and has never been referred to or seen nephrology in the past. Referral sent to Nephrology in [place]. Pt did not follow up yet. Review of Systems Constitutional: Negative for activity change, appetite change, chills, diaphoresis, fatigue, fever and unexpected weight change. HENT: Negative for congestion, ear pain, rhinorrhea, sinus pressure, sinus pain, sneezing, sore throat, trouble swallowing and voice change. Eyes: Negative for visual disturbance. Respiratory: Negative for cough, chest tightness, shortness of breath and wheezing. Cardiovascular: Negative for chest pain, palpitations and leg swelling. Gastrointestinal: Negative for abdominal distention, abdominal pain, blood in stool, constipation, diarrhea and vomiting. Genitourinary: Negative for decreased urine volume, dysuria, flank pain, frequency, hematuria and urgency. Musculoskeletal: Negative for arthralgias, gait problem, joint swelling and myalgias. Skin: Negative for rash. Neurological: Negative for dizziness, tremors, syncope, weakness, light-headedness and headaches. Psychiatric/Behavioral: Negative for decreased concentration and suicidal ideas. The patient is not nervous/anxious. Hematological: Does not bruise/bleed easily. Endocrine: Negative for cold intolerance, heat intolerance, polydipsia, polyphagia and polyuria. Objective Physical Exam Vitals reviewed. Constitutional: Appearance: Normal appearance. HENT: Head: Normocephalic and atraumatic. Right Ear: Tympanic membrane normal. Left Ear: Tympanic membrane normal. Nose: Nose normal. Mouth/Throat: Mouth: Mucous membranes are moist. Pharynx: Oropharynx is clear. Eyes: Pupils: Pupils are equal, round, and reactive to light. Cardiovascular: Rate and Rhythm: Normal rate and regular rhythm. Pulses: Normal pulses. Heart sounds: Normal heart sounds. Pulmonary: Effort: Pulmonary effort is normal. Breath sounds: Normal breath sounds. Abdominal: General: Abdomen is flat. Bowel sounds are normal. Palpations: Abdomen is soft. Musculoskeletal: General: Normal range of motion. Cervical back: Normal range of motion. Skin: General: Skin is warm and dry. Capillary Refill: Capillary refill takes less than 2 seconds. Neurological: General: No focal deficit present. Mental Status: She is alert and oriented to person, place, and time. Psychiatric: Mood and Affect: Mood normal. Behavior: Behavior normal. Assessment/Plan Problem List Items Addressed This Visit HTN (hypertension) ([facility]) - Primary Currently taking Metoprolol 100mg and Isosorbide 30mg Does not check BP at home; Denies orthostatic changes, dizziness, cough, shortness of breath, swelling in extremities. Continue current regimen. Given BP log, advised pt to record BP and bring log back with them to next visit. Other hyperlipidemia ([facility]) Currently taking atorvastatin 20mg Denies any myalgias. Continue current regimen. Stage 3b chronic kidney disease (HCC) ([facility]) eGFR is 32. 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 Likely r/t HF. Pt states she was unaware of this and has never been referred to or seen nephrology in the past. Referral sent to Nephrology in [place]. Pt did not follow up yet. documented in this encounter [facility] 12-18-2023 Note [facility] Subjective Jenifer Hernandez is a 83 y.o. year old female patient being seen for follow-up visit Patient Active Problem List Diagnosis Chronic atrial fibrillation (CMS/HCC) Chronic diastolic congestive heart failure (CMS/HCC) Coronary artery disease involving capitan grande coronary artery of capitan grande heart without angina pectoris History of coronary artery bypass graft Pulmonary HTN (CMS/HCC) Nonrheumatic tricuspid valve regurgitation Mitral valve regurgitation Chronic fatigue Establishing care with new doctor, encounter for HTN (hypertension) Hypercholesteremia Hypertensive heart disease with heart failure (CMS/HCC) Shortness of breath CKD (chronic kidney disease) Pulmonary hypertension (CMS/HCC) Stage 3b chronic kidney disease (CMS/HCC) Family History Problem Relation Name Age of Onset Other (pacemaker) Father Stroke Brother Social History Tobacco Use Smoking status: Never Smokeless tobacco: Never Substance Use Topics Alcohol use: Not Currently HPI 12/18/2023 Patient reports that her shortness of breath is at times worse with exertion. She reports occasional legs edema. She is trying to watch the salt in her diet but she cannot always do that. She is watching the fluid amount she takes. She does not check her weight at home. She denies any chest discomfort at rest or with exertion. She denies orthopnea or paroxysmal nocturnal dyspnea or dizziness or palpitations 09/25/2023 Jenifer is seen in follow up. She is 83-year-old woman with history of coronary disease status post bypass surgery in 2004. She has diastolic heart failure. She has chronic atrial fibrillation maintained on anticoagulation with Xarelto. She is seen in follow-up. After last visit and due to her echocardiogram showing elevated right-sided pressures and moderate to severe tricuspid regurgitation I proceeded with transesophageal echocardiogram that showed severe tricuspid regurgitation and mild to moderate mitral regurgitation with right heart cath showing elevated filling and pulmonary pressures. I added spironolactone 12.5 mg once daily. Since then she reports that she has lost about 10 pounds of weight. She feels better and her leg swelling has improved significantly. She denies chest pain. Update 06/14/2023: She is seen in follow-up. At last visit she was having symptoms of chest pain with exertion. In addition she was having shortness of breath with exertion. I added Imdur. I investigated with an echocardiogram and a stress test. The stress test did not show ischemia by myocardial perfusion imaging. The echocardiogram showed moderate mitral regurgitation and moderate severe tricuspid regurgitation with severely elevated right-sided pressures. She has been taking bumetanide 4 mg in the morning and 3 mg in the evening. She says that her chest discomfort improved significantly after addition of isosorbide mononitrate. She still has shortness of breath on exertion NYHA class II-III symptoms and significant lower extremity edema. Review of systems All systems were reviewed and they were negative except for the positive findings noted above in the history Objective Visit Vitals BP 134/68 (BP Location: Left arm, Patient Position: Sitting) Pulse 74 Ht 1.626 m (5' 4 ) Wt 72.1 kg (159 lb) SpO2 95% BMI 27.29 kg/m??? Smoking Status Never BSA 1.8 m??? Physical examination She is alert, oriented, not in apparent distress Neck supple, normal range of motion, no Bruit Lungs clear to auscultation without rales rhonchi or wheezes Cardiovascular system irregular irregularity, systolic murmur 2-3/6 at the left lower sternal border Extremities no edema or cyanosis or clubbing. Significant varicose veins bilaterally, no significant skin discoloration Allergies Allergies Allergen Reactions Furosemide Penicillins Sulfa (Sulfonamide Antibiotics) Medications Current Outpatient Medications: albuterol 90 mcg/actuation inhaler, ProAir HFA 90 mcg/actuation aerosol inhaler, Disp: , Rfl: atorvastatin (Lipitor) 20 mg tablet, atorvastatin 20 mg tablet take 1 tablet by mouth once daily, Disp: , Rfl: bumetanide (Bumex) 2 mg tablet, Take 1 tablet (2 mg) by mouth two times daily., Disp: , Rfl: ergocalciferol (Vitamin D-2) 1.25 MG (18220 Units) capsule, Vitamin D2 1,250 mcg (50,000 unit) capsule, Disp: , Rfl: ferrous sulfate 325 (65 Fe) MG tablet, FeroSul 325 mg (65 mg iron) tablet take 1 tablet by mouth once daily, Disp: , Rfl: isosorbide mononitrate ER (Imdur) 30 mg 24 hr tablet, Take 1 tablet (30 mg) by mouth in the morning. Do not crush or chew., Disp: 90 tablet, Rfl: 3 magnesium oxide (Mag-Ox) 400 mg (241.3 mg magnesium) tablet, magnesium oxide 400 mg (241.3 mg magnesium) tablet take 1 tablet by mouth once daily, Disp: , Rfl: metoprolol tartrate (Lopressor) 100 mg tablet, metoprolol tartrate 100 mg tablet TAKE 1 AND 1/2 TABLETS BY MO (more content not included)... [facility] 09-25-2023 Note [place] [facility] Subjective Jenifer Hernandez is a 83 y.o. year old female patient being seen for follow up [facility]WOA and [facility]. SOB w/ exertion and LE edema has resolved she says. Denies chest pain, palpitations, and bleeding on Xarelto. Had BMP last week. Patient Active Problem List Diagnosis Chronic atrial fibrillation (CMS/HCC) Chronic diastolic congestive heart failure (CMS/HCC) Coronary artery disease involving capitan grande coronary artery of capitan grande heart without angina pectoris History of coronary [...] coronary disease status post bypass surgery in 2005. She has diastolic heart failure. She has [...] respond to it. She was admitted to [facility] with decompensated HF in 05/2018. Update [...] The echocardiographic picture (more content not included)... [facility] 09-10-2023 Note Patient: Jenifer lorenz Procedure Information Date/Time: 09/10/23 1300 Procedure: Right heart cath - pc approved with [facility] Location: [facility] TITLE 1 TUTOR 3 / [facility] (Cath) Providers: Herber Flores MD Clinical information reviewed: Allergies Meds Physical Exam Airway Mallampati: II TM distance: >3 FB Neck ROM: full Cardiovascular Rhythm: regular Rate: normal Dental Pulmonary Abdominal Anesthesia Plan ASA 3 other (Conscious sedation.) Anesthetic plan and risks discussed with patient. Use of blood products discussed with patient who consented to blood products. Additional Equipment Requests [facility] 06-14-2023 Note [facility] Subjective Jenifer Hernandez is a 83 y.o. year old female patient being seen for Follow-up (1 month- stress/echo) Patient Active Problem List Diagnosis Chronic atrial fibrillation (CMS/HCC) Chronic diastolic congestive heart failure (CMS/HCC) Coronary artery disease involving [place] coronary artery of [place] heart without angina pectoris History of coronary [...] respond to it. She was admitted to [facility] with decompensated HF in 05/2018. Update [...] breath on exert (more content not included)... [facility] 05-06-2023 Note [place] [facility] Subjective Jenifer Hernandez is a [...] heart failure (CMS/HCC) Coronary artery disease involving [place] coronary artery of [place] heart without angina pectoris History of coronary [...] respond to it. She was admitted to [facility] with decompensated HF in 05/2018. Update [...] EF 65-70%). Normal (more content not included)... [facility] 01-18-2022 Note OPERATIVE NOTE OPERATION DATE: 01/18/2022 SURGEON: Petr Merlos D.O. PREOPERATIVE DIAGNOSIS: Nuclear sclerotic cataract right [...] ensuring mobility, phacoemulsification was performed in a [id number]-type fashion. After all nuclear material had been [...] the following day for postoperative care. [facility] 01-18-2022 Note HISTORY AND PHYSICAL EXAMINATION Date:01/17/2022 [...] go forward with her elective procedure. [facility] 12-21-2021 Note HISTORY AND PHYSICAL EXAMINATION Date:12/20/2021 [...] go forward with her elective procedure. [facility] 12-21-2021 Note OPERATIVE NOTE OPERATION DATE: 12/21/2021 SURGEON: Petr Merlos M.D. PREOPERATIVE DIAGNOSIS: Nuclear sclerotic cataract left [...] ensuring mobility, phacoemulsification was performed in a [id number]-pumaci-type fashion. After all nuclear material had been [...] the following day for postoperative care. [facility] Evaluation note Diagnosis Hypercholesteremia (CMS/HCC)- Primary Pure hypercholesterolemia documented in this encounter [facility] Diagnosis Primary hypertension (CMS/HCC)- Primary Unspecified essential hypertension Hypercholesteremia (CMS/HCC) Pure hypercholesterolemia Chronic diastolic heart failure (CMS/HCC) Chronic diastolic heart failure Other hyperlipidemia (CMS/HCC) Chronic fatigue Other malaise and fatigue Shortness of breath Pulmonary HTN (CMS/HCC) Hypertensive heart disease with heart failure (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 Coronary artery disease involving [place] coronary artery of [place] heart without angina pectoris (CMS/HCC) Chronic atrial fibrillation, unspecified (CMS/HCC) Establishing care with new doctor, encounter for Shortness of breath- Primary Hypokalemia Hypopotassemia Chronic diastolic heart failure (CMS/HCC)- Primary Chronic diastolic heart failure Hypokalemia Hypopotassemia Shortness of breath Acute on chronic diastolic HF (heart failure) (CMS/HCC) Acute on chronic diastolic heart failure Hypercholesteremia (CMS/HCC)- Primary Pure hypercholesterolemia Hypertensive heart disease with heart failure (CMS/HCC) Unspecified hypertensive heart disease with heart failure Hypertension, unspecified type (CMS/HCC) Cerumen debris on tympanic membrane of both ears Stage 3b chronic kidney disease (HCC) (CMS/HCC) Chronic fatigue Other malaise and fatigue Hypertension, unspecified type (CMS/HCC)- Primary Other hyperlipidemia (CMS/HCC) Stage 3b chronic kidney disease (HCC) (CMS/HCC) documented in this encounter [facility] Summary Purpose Family History No Family History Records FoundNo Family History Records FoundNo Family History Records FoundNo Family History Records FoundNo Family History Records Found Advance Directives No Advanced Directives Records FoundNo Advanced Directives Records FoundNo Advanced Directives Records FoundNo Advanced Directives Records FoundNo Advanced Directives Records Found Hospital Course Note MR#: [id number] [facility] Pt. Name: Jenifer Hernandez Admitted: 12/17/2018 Discharged: [...] (more content not included)... Note MR#: [id number] [facility] Pt. Name: Jenifer Hernandez Admitted: 01/05/2019 Discharged: 01/14/2019 Date of : 1940 Physician: Amy Head MD DISCHARGE SUMMARY PRIMARY CARE PHYSICIAN: Edu Odonnell. ADMITTING DIAGNOSES: 1. Acute kidney injury on chronic kidney disease. 2. Drug-induced symptomatic severe bradycardia with hemodynamic compromise. DISCHARGE DIAGNOSES: 1. Drug-induced symptomatic severe bradycardia with hemodynamic compromise. 2. 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 Obagj-ow-ohpxswc biventricular systolic and diastolic heart failure exacerbation. 4. Severe pulmonary hypertension. 5. Severe tricuspid regurgitation. 6. Bilateral pleural effusion. 7. Chronic atrial fibrillation. 8. Chronic anticoagulation. 9. Iron deficiency normocytic anemia. 10. Physical deconditioning. HOSPITAL COURSE: She presented to the ED with complaints of exertional dizziness and lightheadedness for 2 days with being recently discharge (more content not included)... Note MR#: [id number] [facility] Pt. Name: Jenifer Hernandez Surgery Date: 12/19/2018 Room #: 3CD [id number] Date of : 1940 PROCEDURE NOTE ATTENDING: [...] not included)... Procedure Findings Note MR#: [id number] [facility] Pt. Name: Jenifer Hernandez Surgery Date: 12/19/2018 Room #: 3CD [id number] Date of : 1940 PROCEDURE NOTE ATTENDING: [...] and content) DATE CREATED AUTHOR 04/10/2019 [facility] DATE CREATED AUTHOR AUTHOR'S ORGANIZ ATION 05/07/2021 [facility] DATE CREATED AUTHOR AUTHOR'S ORGANIZ ATION 02/07/2022 [facility] DATE CREATED AUTHOR AUTHOR'S ORGANIZ ATION 01/12/2024 [facility] DATE CREATED AUTHOR AUTHOR'S ORGANIZ ATION 01/15/2024 [facility] Reason for Visit (unrecogniz ed section and content) Reason Onset Date Comments Med Refill 11/25/2023 Reason Comments Follow-up Care Teams (unrecognized sec tion and content) Labor Mediator Relationship Specialty Start Date End Date Keith Foley MD [address] [place] [address] PCP - General Family Medicine 10/02/23 Shell Hemphill NP [address] [place] [address] Nurse Practitioner Family Medicine 10/02/23 Labor Mediator Relationship Specialty Start Date End Date Keith Foley MD [address] [place] [id number] PCP - General [facility] 10/02/23 Shell Hemphill NP [address] [place] [address] Nurse Practitioner [facility] 10/02/23 Labor Mediator Relationship Specialty Start Date End Date Keith Foley MD [address] [place] [phone] PCP - General [facility] 10/02/23 Shell Hemphill NP [address] [place] [address] Nurse Practitioner [facility] 10/02/23 FOR RECORDS PERTAINING TO PATIENTS WHO ARE [...] BE BASED ON THE PRIMARY CLINICAL RECORDS. [facility] provides no warranty or guarantee of the accuracy or completeness of information in this document.
[2024-02-04 14:24] LABS: Anion Gap 9.8; BUN Creatinine Ratio 20.5; Calcium 9.4 mg/dL (8.5-10.1); Carbon Dioxide 34.9 mmol/L (21.0-32.0); Chloride 102 mmol/L (98-107); Estimated GFR (African America 33 (>=60 mL/min/1.73m^2); Estimated GFR (Non-African Ame 27 (>=60 mL/min/1.73m^2); Glucose 148 mg/dL (74-106); Potassium 3.7 mmol/L (3.5-5.1); Sodium 143 mmol/L (136-145)
== END 2024-02-04 13:44 | disposition home or self-care (01) ==
LOC: LAB 13:45
PROVIDERS: Visit Provider Internal Medicine Interventional Cardiology
DX: I50.32 Chronic diastolic (congestive) heart failure (principal)
CPT/HCPCS: 36415; 80048

== ENCOUNTER 2024-05-13 10:39 | Outpatient (OUT) | payer MEDICARE, OTHER, SELFPAY ==
--- OUTSIDE RECORDS SUMMARY | 2024-05-13 11:03 | XMS_ITS | CCD ---
Author Organization [facility] Care Team Providers Care Access Director Name Role Phone EDU ODONNELL Referring Unavailable HOUSE, EDU Primary Care Unavailable ALLYERASTO Lim Admitting Unavailable AJ, FLORENTINO Attending Unavailable NE Procedure Practitioner Unavailab le UNKNOWN, PROVIDER Surgeon Unavailable NE Procedure Practitioner Unavailab SHERRY Marinelli Surgeon Unavailable NE Procedure Practitioner Unavailab le AJ, FLORENTINO Surgeon Unavailable LAKSHMI MARSHALLKOLB Admitting Unavailable EDU ODONNELL Primary Care Unavailable SELF, REFERRED Referring Unavailable MEGHAN HEAD Attending Unava ilable NE Procedure Practitioner Unavailab le KEVON COLON Surgeon [...] Unavailable HOUSE, DR SALAMANCA Primary Care Unavailable EPTR MERLOS Consulting Unavailable PETR MERLOS Admitting Unavailable [...] Attending Unavailable MISC, DR PROCTOR Consulting Unavailable MIS, DR PROCTOR Admitting Unavailable HOUSE, DR SALAMANCA Primary Care Unavailable Keith Foley MD Primary Care Provider [phone] Kanchan OIL EXTRACTOR, Shell Unavailable SHELL HEMPHILL Attending Unavailstefan e HEMPHILL, SHELL Attending Unavailstefan e FAISRAEL, Attending Unavailable SHAIKH QUILES Attending Unavailable MOUKAHERMAN, HERBER Attending Unavailable MOUKARBEL, HERBER Attending Unavailable GERALDBIRDIE Hughes Attending Unavailable MOUKAHERBER SUTTON Referring Unavailable MOUKAHERBER SUTTON Admitting Unavailable MOUKAHERMAN, HERBER Attending Unavailable MOUKAHERMAN, HERBER Attending Unavailable MOUKARBEL, HERBER Attending Unavailable Allergies Allergy Classification Reported Allergen(s) Allergy Type Date of Onset Reaction(s) Facility (3 sources) Furosemide Drug Allergy 9 [facility] Repository (2 sources) Penicillins; Translations: [PENICILLINS] Drug allergy (disorder) 9 [facility] Repository (3 sources) Sulfonamides (Antibiotic); Translations: [SULFA (SULFONAMIDE ANTIBIOTICS)] Drug allergy (disorder) 9 [facility] Repository (1 source) Penicillin Drug Allergy [facility] Repository (13 sources) Penicillin G Drug Allergy 9 [facility] Healthcare Work Phone: (13 sources) Sulfonamides (Antibiotic) Drug Intolerance 9 [facility] (1 source) Furosemide; Translations: [FUROSEMIDE] Drug Allergy 2 [facility] Rep[facility] Medications Current Medications Medication Drug Class(es) Dates Sig (Normalized) Sig (Original) [id number] 200 actuat albuterol 0.09 mg/actuat metered dose inhaler (13 sources) beta2-Adrenergi c Agonist take 2 puff(s) by inhalation every four hours albuterol HFA (ProAir HFA) 90 mcg/act inhaler Inhale 2 puffs every 4 (four) hours if needed for shortness of breath Active atorvastatin 20 mg oral tablet (15 sources) HMG-CoA Reductase Inhibitor Start: 03-02-2024 take 1 tablet by mouth once daily atorvastatin (Lipitor) 20 MG tablet Indications: Hypercholesteremia (CMS/HCC) TAKE 1 TABLET BY MOUTH DAILY 30 tablet 2 03/02/2024 Active Start: 11-25-2023 End: 03-02-2024 take 1 tablet by mouth once daily atorvastatin (Lipitor) 20 MG tablet Indications: Hypercholesteremia (CMS/HCC) Take 1 tablet (20 mg) by mouth Daily 30 tablet 2 11/25/2023 03/02/2024 Discontinued take 1 tablet by amado th in the morning atorvastatin (Lipitor) 20 MG tablet Take 20 mg by mouth in the morning. Active bumetanide 2 mg oral tablet (13 sources) Loop Diuretic take 1 tablet by mouth in the morning bumetanide (Bumex) 2 MG tablet Take 2 mg by mouth in the morning and 2 mg before bedtime. Active carbamide peroxide 65 mg/ml otic solution (2 sources) Start: End: carbamide peroxide (Debrox) 6.5 % otic solution Indications: Cerumen debris on tympanic membrane of both ears Administer 3-5 drops into affected ear(s) in the morning and 3-5 drops before bedtime. Do all this for 4 days. 15 mL 10/14/2023 10/18/2023 Active ferrous sulfate 325 mg oral tablet (13 sources) take 1 tablet by mouth at mealtime ferrous sulfate (FeroSul) 325 (65 Fe) MG tablet Take 325 mg by mouth in the morning. Take with meals. Active 24 hr isosorbide mononitrate 30 mg extended release oral tablet (13 sources) Nitrate Vasodilator Start: End: 5 take 1 tablet by mouth in the morning, then take 1 tablet by mouth every twenty-four hours isosorbide mononitrate ER (Imdur) 30 MG 24 hr tablet Take 30 mg by mouth in the morning. 05/06/2023 05/05/2024 Active Magnesium Oxide (16 sources) End: 4 take 1 tablet by mouth once daily magnesium oxide (Mag-Ox) 400 MG tablet Take 400 mg by mouth Daily 10/14/2023 Discontinued (Duplicate order) magnesium oxide (Mag-Ox) 400 mg tablet 400 mg in the morning. Active metoprolol tartrate 100 mg oral tablet (14 sources) beta-Adrenergic Amy Start: 02-24-2024 End: 08-22-2024 take 1.5 tablets by mouth in the morning metoprolol tartrate (Lopressor) 100 MG tablet Indications: Chronic diastolic heart failure (CMS/HCC) Take 1.5 tablets (150 mg) by mouth in the morning and 1.5 tablets (150 mg) before bedtime. 270 tablet 1 02/24/2024 08/22/2024 Active Start: 08-12-2023 End: 02-20-2024 take 1.5 tablets by mouth in the morning metoprolol tartrate (Lopressor) 100 MG tablet Indications: Chronic diastolic heart failure (CMS/HCC) Take 1.5 tablets (150 mg) by mouth in the morning and 1.5 tablets (150 mg) before bedtime. 270 tablet 1 08/12/2023 02/20/2024 Discontinued (Reorder) pantoprazole 40 mg delayed release oral tablet (13 sources) Proton Pump Inhibitor take 1 tablet by mouth before mealtime pantoprazole (ProtoNix) 40 MG EC tablet Take 40 mg by mouth in the morning. Take before meals. Active microencapsulated potassium chloride 20 meq extended release oral tablet (16 sources) Start: End: take 1 tablet by mouth once daily potassium chloride CR (Klor-Con M20) 20 MEQ ER tablet Indications: Hypokalemia Take 1 tablet (20 mEq) by mouth Daily Do not crush or chew. 90 tablet 1 05/21/2023 10/14/2023 Discontinued (Duplicate order) rivaroxaban 15 mg oral tablet (13 sources) Factor Xa Inhibitor take 1 tablet by mouth in the morning rivaroxaban (Xarelto) 15 MG tablet Take 15 mg by mouth in the morning. Take with food.. Active spironolactone 25 mg oral tablet (14 sources) Aldosterone Antagonist Start: End: take 0.5 tablet by mouth in the morning spironolactone (Aldactone) 25 MG tablet Indications: Hypertensive heart disease with heart failure (CMS/HCC) Take 0.5 tablets (12.5 mg) by mouth in the morning. 15 tablet 11 10/14/2023 10/13/2024 Active Start: 09-25-2023 End: 10-14-2023 spironolactone (Aldactone) 2 5 MG tablet Take 12.5 mg by mouth in the morning. 09/25/2023 10/14/2023 Discontinued (Reorder) Problems Active Problems Problem Classification Problem Date Documented Date Episodic/Chronic Cardiac dysrhythmias (13 sources) Chronic atrial fibrillation; Translations: [Chronic atrial fibrillation, unspecified] Onset: 01-15-2019 04-25-2023 Chronic Cataract (8 sources) Age-related nuclear cataract, right eye; Translations: [Age-related nuclear cataract, left eye] Onset: 12-21-2021 Chronic Chronic kidney disease (16 sources) Chronic kidney disease stage 3B ; Translations: [Stage 3b chronic kidney disease (HCC)] Onset: 10-14-2023 10-14-2023 Chronic Chronic kidney disease (2 sources) Chronic kidney disease; Translations: [Chronic kidney disease, stage 3b] Onset: 12-18-2023 Congestive heart failure; nonhypertensive (20 sources) Acute on chronic diastolic (congestive) heart failure; Translations: [Chronic diastolic (congestive) heart failure] Onset: 03-07-2021 Chronic Coronary atherosclerosis and other heart disease (18 sources) Atherosclerotic heart disease of [place] coronary artery without angina pectoris; Translations: [Coronary arteriosclerosis] Onset: 06-18-2018 04-25-2023 Chronic Disorders of lipid metabolism (20 sources) Pure hypercholesterolemia, unspecified; Translations: [Hypercholesterolemia ] Onset: 12-27-2021 11-25-2023 Chronic Essential hypertension (20 sources) Essential (primary) hypertension; Translations: [Hypertensive disorder] Onset: 12-27-2021 03-19-2023 Chronic Heart valve disorders (20 sources) Mitral valve regurgitation; Translations: [Nonrheumatic mitral (valve) insufficiency] Onset: 02-01-2022 04-25-2023 Chronic Hypertension with complications and secondary hypertension (15 sources) Hypertensive heart failure; Translations: [Hypertensive heart disease with heart failure] Onset: 01-15-2019 04-25-2023 Chronic Malaise and fatigue (15 sources) Fatigue; Translations: [Chronic fatigue, unspecified] Onset: 04-25-2023 04-25-2023 Chronic Pulmonary heart disease (15 sources) Pulmonary hypertension; Translations: [Pulmonary hypertension, unspecified] [...] Date Documented Da te Episodic/Chronic Administrative/social admission (13 sources) First encounter by subject; Translations: [Persons encountering health services in other specified circumstances] Onset: 04-25-2023 04-25-2023 Episodic Coronary atherosclerosis and other heart disease (3 sources) Presence of aortocoronary bypass graft; Translations: [PRESENCE AORTOCORONARY BYPASS GRAFT] Onset: 12-27-2021 Episodic Other and unspecified benign neoplasm (1 source) Hemangioma unspecified site; Translations: [HEMANGIOMA UNSPECIFIED SITE] Onset: 04-03-2021 Episodic Other ear and sense organ disorders (2 sources) Excessive cerumen in ear canal ; Translations: [Impacted cerumen, bilateral] 10-14-2023 Episodic Other lower respiratory disease (14 sources) Dyspnea; Translations: [Shortness of breath] Onset: 04-25-2023 04-25-2023 Episodic Other lower respiratory disease (1 source) Shortness of breath; Translations: [Shortness of breath] Onset: 05-06-2023 Episodic Other skin disorders (4 sources) Sebaceous cyst; Translations: [SEBACEOUS CYST] Onset: 03-28-2021 Episodic Results Test Name Value Interpretation Reference Range Facility ALL BASIC METABOLIC PANELon 02-04-2024 Anion gap [Moles/Vol] 9.8 mmol/L [facility] Calcium [Mass/Vol] 9.4 mg/dL 8.5 - 10. 1 mg/dL [facility] Chloride [Moles/Vol] 102 mmol/L 98 - 10 7 mmol/L [facility] CO2 [Moles/Vol] 34.9 mmol/L High 21.0 - 32.0 mmol/L [facility] Creatinine [Mass/Vol] 1.76 mg/dL High 0.55 - 1.02 mg/dL [facility] GFR/1.73 sq M.predicted CKD-EPI (S/P/Bld) [Vol rate/Area] 33 Low >=60 mL/min/1.73m 2 [facility] Glucose [Mass/Vol] 148 mg/dL High 74 - 106 mg/dL [facility] Interpretation and review of laboratory results Abnormal [facility] Potassium [Moles/Vol] 3.7 mmol/L 3.5 - 5.1 mmol/L [facility] Sodium [Moles/Vol] 143 mmol/L 136 - 145 mmol/L [facility] TBH EGFR-NON AF BAHRAINI 27 Low >=60 mL/min/1.73m 2 [facility] Urea nitrogen [Mass/Vol] 36 mg/dL High 7.0 - 18.0 mg/dL [facility] Urea nitrogen/Creatinine [Mass ratio] 20.5 mg/mg [facility] Healthcare Office Visiton 01-13-2024 Follow-up visit [id number] Jenifer Hernandez 1940 F Date Provider Department Center 01/13/2024 HERBER BERMUDEZ LEIGHA [facility] Family History Problem Relation Age of Onset Other Father Stroke Brother Family Status - Relation Status Age at Father Brother Level of Service:54467 NE OFFICE/OUTPATIENT ESTABLISHED MOD MDM 30 MIN Normal [facility] ALL BASIC METABOLIC PANELon 12-26-2023 Anion gap [Moles/Vol] 10.9 mmol/L [facility] Calcium [Mass/Vol] 9.6 mg/dL 8.5 - 10. 1 mg/dL [facility] Chloride [Moles/Vol] 102 mmol/L 98 - 10 7 mmol/L [facility] CO2 [Moles/Vol] 33.4 mmol/L High 21.0 - 32.0 mmol/L [facility] Creatinine [Mass/Vol] 1.54 mg/dL High 0.55 - 1.02 mg/dL [facility] GFR/1.73 sq M.predicted CKD-EPI (S/P/Bld) [Vol rate/Area] 39 Low >=60 mL/min/1.73m 2 [facility] Glucose [Mass/Vol] 99 mg/dL 74 - 106 mg/dL [facility] Interpretation and review of laboratory results Abnormal [facility] Potassium [Moles/Vol] 4.3 mmol/L 3.5 - 5.1 mmol/L [facility] Sodium [Moles/Vol] 142 mmol/L 136 - 145 mmol/L [facility] EGFR-NON AF BAHRAINI 32 Low >=60 mL/min/1.73m 2 [facility] Urea nitrogen [Mass/Vol] 34 mg/dL High 7.0 - 18.0 mg/dL [facility] Urea nitrogen/Creatinine [Mass ratio] 22.1 mg/mg [facility] ALL BASIC METABOLIC PANELon 12-18-2023 Anion gap [Moles/Vol] 13.5 mmol/L [facility] Calcium [Mass/Vol] 9.2 mg/dL 8.5 - 10. 1 mg/dL [facility] Chloride [Moles/Vol] 102 mmol/L 98 - 10 7 mmol/L [facility] CO2 [Moles/Vol] 31.4 mmol/L 21.0 - 32.0 mmol/L [facility] Creatinine [Mass/Vol] 1.68 mg/dL High 0.55 - 1.02 mg/dL [facility] GFR/1.73 sq M.predicted CKD-EPI (S/P/Bld) [Vol rate/Area] 35 Low >=60 mL/min/1.73m 2 [facility] Glucose [Mass/Vol] 137 mg/dL High 74 - 106 mg/dL [facility] Interpretation and review of laboratory results Abnormal [facility] Potassium [Moles/Vol] 3.9 mmol/L 3.5 - 5.1 mmol/L [facility] Sodium [Moles/Vol] 143 mmol/L 136 - 145 mmol/L [facility] EGFR-NON AF BAHRAINI 29 Low >=60 mL/min/1.73m 2 [facility] Urea nitrogen [Mass/Vol] 35 mg/dL High 7.0 - 18.0 mg/dL [facility] Urea nitrogen/Creatinine [Mass ratio] 20.8 mg/mg [facility] Office Visiton 12-18-2023 Follow-up visit [id number] Jenifer Hernandez 1940 F Date Provider Department Center 12/18/2023 [id number] [facility] Family History Problem Relation Age of Onset Other Father Stroke Brother Family Status - Relation Status Age at Father Brother Level of Service:90734 NE OFFICE/OUTPATIENT ESTABLISHED MOD MDM 30 MIN Reason for Visit and Comments: Atrial Fibrillation [80] - Denies palpitations, syncope, and bleeding on Xarelto. Congestive Heart Failure [127] - Dr. Flores reduced Bumex at last visit in Sep. Had echo 2 weeks ago and needs more diuretic per Dr. Flores. She has gained 6# since last visit. Coronary Artery Disease [187] Hypertension [937872] Valve Disorder [3372] Dizziness [638095] - Denies syncope. Edema [[id number]] [facility] 36on 12-12-2023 36 Spoke with patient a nd got her in to see Dr. Chacon on 12/17. I asked her to have BMP prior to apt. Order faxed to [facility]. [facility] 36on 12-09-2023 36 Regarding echo resul t from 11/29/2023: MD Radha Castro MA She needs more diuretic, is she coming for a follow up? She is not scheduled to see you until 01/12. You are completely booked until then. Would you like her to see an OIL EXTRACTOR or Dr. Chacon in the meantime? [facility] ALL BASIC METABOLIC PANELon 10-28-2023 Anion gap [Moles/Vol] 8.1 mmol/L [facility] Calcium [Mass/Vol] 9.1 mg/dL 8.5 - 10. 1 mg/dL [facility] Healthcare Chloride [Moles/Vol] 100 mmol/L 98 - 10 7 mmol/L [facility] CO2 [Moles/Vol] 33.6 mmol/L High 21.0 - 32.0 mmol/L [facility] Creatinine [Mass/Vol] 1.59 mg/dL High 0.55 - 1.02 mg/[facility] GFR/1.73 sq M.predicted CKD-EPI (S/P/Bld) [Vol rate/Area] 37 Low 60 - PINF [facility] Glucose [Mass/Vol] 93 mg/dL 74 - 106 mg/dL [facility] Interpretation and review of laboratory results Abnormal [facility] Potassium [Moles/Vol] 3.7 mmol/L 3.5 - 5.1 mmol/L [facility] Sodium [Moles/Vol] 138 mmol/L 136 - 145 mmol/L [facility] TBH EGFR-NON AF BAHRAINI 31 Low 60 - PINF [facility] Urea nitrogen [Mass/Vol] 42.0 mg/dL High 7.0 - 18.0 mg/dL [facility] Urea nitrogen/Creatinine [Mass ratio] 26.4 mg/mg [facility] Healthcare Office Visiton 09-25-2023 Follow-up visit [id number] Jenifer Hernandez 1940 F Date Provider Department Center 09/25/2023 Lexi-HERBER FLORES [facility] Family History Problem Relation Age of Onset Other Father Stroke Brother Family Status - Relation Status Age at Father Brother Level of Service:36446 NE OFFICE/OUTPATIENT ESTABLISHED MOD MDM 30 MIN Normal [facility] ANEDamon 09-10-2023 ANES ---- -------- Attestation signed by [...] cath - pc approved with ADWOA Location: [facility] [employer] DIST[employer]OR 3 / [facility] (Cath) Providers: Herber Flroes MD Clinical information reviewed: Allergies Meds Physical [...] discussed with attending. Additional Equipment Requests Normal [facility] BASIC METABOLIC PANELon 07-2 Anion gap [Moles/Vol] 12 mmol/L Normal 7-20 [facility] Comment on above: Performed By: #### L [id number] ####[facility] HOSPITAL LAB (BEAKER)[address] , [place] [address] Calcium [Mass/Vol] 9.3 mg/dL Normal 8.6-10.3 [facility] Comment on above: Performed By: #### L [id number] ####[facility] LAB (BEAKER)[address] , [place] [address] Chloride [Moles/Vol] 100 mmol/L Normal 98-107 [facility] Comment on above: Performed By: #### L [id number] ####[facility] (BEAKER)[address] [place] [address] CO2 [Moles/Vol] 30 mmol/L Normal 21-31 [facility] Comment on above: Performed By: #### L [id number] ####[facility] (BEAKER)[address] , [place] [address] Creatinine [Mass/Vol] 1.30 mg/dL High 0.60-1.20 [facility] Comment on above: Performed By: #### L [id number] ####[facility] (BEAKER)[address] , [place] [address] GLOMERULAR FILTRATION RATE ML/MIN/1.73 SQ M.PREDICTED 40.3 mL/min/1.73m*2 Low >60.0 [facility] Comment on above: Result Comment: [facility]???s estimated glomerular filtration rate (eGFR) will no [...] of individuals. Performed By: #### L [id number] ####[facility] ([facility])[address] [place] [address] Glucose [Mass/Vol] 130 mg/dL High 70-100 [facility] Comment on above: Performed By: #### L [id number] ####[facility] ([facility])[address] [place] [address] Potassium [Moles/Vol] 3.4 mmol/L Low 3.5-5.1 [facility] Comment on above: Performed By: #### L [id number] ####[facility] ([facility])[address] [place] [address] Sodium [Moles/Vol] 139 mmol/L Normal 136-145 [facility] Comment on above: Performed By: #### L [id number] ####[facility] ([facility])[address] [place] [address] Urea nitrogen [Mass/Vol] 34 mg/dL High 7-25 [facility] Comment on above: Performed By: #### L [id number] ####[facility] ([facility])[address] [place] [address] UREA NITROGEN/CREATININE (MASS RATIO) IN SER/PLAS 26.2 Normal [facility] Comment on above: Performed By: #### L [id number] ####[facility] ([facility])[address] [place] [address] CBC WITH AUTO DIFFERENTIALon 09-10-2023 Basophils (Bld) [#/Vol] 0.04 10*3/uL Normal 0.00-0.20 [facility] Comment on above: Performed By: #### L [id number] ####[facility] (BEAKER)[address] [place] [address] Basophils/100 WBC (Bld) 0.6 % Normal 0.0-1.0 [facility] Comment on above: Performed By: #### L [id number] ####[facility] (BEAKER)[address] [place] [address] Eosinophils (Bld) [#/Vol] 0.15 10*3/uL Normal 0.00-0.50 [facility] Comment on above: Performed By: #### L [id number] ####[facility] (BEAKER)[address] [place] [address] Eosinophils/100 WBC (Bld) 2.2 % Normal 0.0-6.0 [facility] Comment on above: Performed By: #### L [id number] ####[facility] (BEAKER)[address] [place] [address] Erythrocyte distribution width (RBC) [Ratio] 14.4 % Normal 11.5-15.0 [facility] Comment on above: Performed By: #### L [id number] ####[facility] (BEAKER)[address] [place] [address] ERYTHROCYTE MEAN CORPUSCULAR HEMOGLOBIN CONCENTRATION (G/DL) BY AUTOMATED 32.7 g/dL Normal 32.0-35.0 [facility] Comment on above: Performed By: #### L [id number] ####[facility] (BEAKER)[address] [place] [address] Hematocrit (Bld) [Volume fraction] 37.6 % Normal 36.0-48.0 [facility] Comment on above: Performed By: #### L [id number] ####[facility] (BEAKER)[address] [place] [address] Hemoglobin (Bld) [Mass/Vol] 12.3 g/dL Normal 12.0-15.0 [facility] Comment on above: Performed By: #### L [id number] ####[facility] (BEAKER)[address] [place] [address] Immature granulocytes (Bld) [#/Vol] 0.02 10*3/uL Normal 0.00-0.20 [facility] Comment on above: Performed By: #### L [id number] ####[facility] (BEAKER)[address] [place] [address] Immature granulocytes/100 WBC (Bld) 0.3 % Normal 0.0-1.0 [facility] Comment on above: Performed By: #### L [id number] ####[facility] (BEAKER)[address] [place] [address] Lymphocytes (Bld) [#/Vol] 1.10 10*3/uL Low 1.20-4.00 [facility] Comment on above: Performed By: #### L [id number] ####[facility] (BEAKER)[address] [place] [address] Lymphocytes/100 WBC (Bld) 16.3 % Low 20.0-45.0 [facility] Comment on above: Performed By: #### L [id number] ####[facility] (BEAKER)[address] [place] [address] MCH (RBC) [Entitic mass] 32.6 pg Normal 27.0-33.0 [facility] Comment on above: Performed By: #### L [id number] ####[facility] (BEAKER)[address] [place] [address] MCV (RBC) [Entitic vol] 99.7 fL High 82.0-98.0 [facility] Comment on above: Performed By: #### L [id number] ####[facility] (BEAKER)[address] [place] [address] Monocytes (Bld) [#/Vol] 0.92 10*3/uL Normal 0.10-1.00 [facility] Comment on above: Performed By: #### L [id number] ####[facility] (BEAKER)[address] [place] [address] Monocytes/100 WBC (Bld) 13.6 % High 5.0-12.0 [facility] Comment on above: Performed By: #### L [id number] ####[facility] ([facility])[address] [place] [address] Neutrophils (Bld) [#/Vol] 4.53 10*3/uL Normal 1.60-7.60 [facility] Comment on above: Performed By: #### L [id number] ####[facility] ([facility])[address] [place] [address] Neutrophils/100 WBC (Bld) 67.0 % Normal 40.0-72.0 [facility] Comment on above: Performed By: #### L [id number] ####[facility] ([facility])[address] [place] [address] NRBC (PER 100 WBCS) BY AUTOMATED COUNT 0.0 % Normal 0 [facility] Comment on above: Performed By: #### L [id number] ####[facility] ([facility])[address] [place] [address] PLATELETS (10*3/UL) IN BLOOD AUTOMATED COUNT 163 10*3/uL Normal 150-400 [facility] Comment on above: Performed By: #### L [id number] ####[facility] ([facility])[address] [place] [address] RBC (Bld) [#/Vol] 3.77 10*6/uL Low 3.80-5.00 [facility] Comment on above: Performed By: #### L [id number] ####[facility] ([facility])[address] [place] [address] WBC (Bld) [#/Vol] 6.76 10*3/uL Normal 4.00-10.60 [facility] Comment on above: Performed By: #### L [id number] ####[facility] (BEAKER)[address] [place] [address] HPon 09-10-2023 HP History Of Present Illness [...] 3 09/09/2023 ergocalciferol (Vitamin D-2) 1.25 MG (06310 Units) capsule Vitamin D2 1,250 mcg (50,000 [...] and tri (more content not included)... Normal [facility] HP ---- -------- Attestation signed by Dwight [...] a past medical history of Atrial fibrillation ([facility]), Coronary artery disease, and Heart valve disease. [...] 3 09/09/2023 ergocalciferol (Vitamin D-2) 1.25 MG (24920 Units) capsule Vitamin D2 1,250 mcg (50,000 [...] pulmonic regurgitation. Assessment/Plan Coronary artery disease of [place] artery of [place] heart with stable angina pectoris ([facility]/HCC) Chronic diastolic congestive heart failure ([facility]/HCC) Shortness of breath Permanent atrial fibrillation (CMS/HCC) Stage 3b chronic kidney disease ([facility]/HCC) Pulmonary hypertension ([facility]/HCC) Severe TR Moderate MR Mild AR - Plan: RHC and ADWOA Primary hypertension - continue medical therapy History of coronary artery bypass surgery s/p CABG - continue medical therapy [facility] Georgie 09-10-2023 NURSSIMI RN educated pt on d/ c instructions. RN encouraged pt to voice any questions or concerns. Pt verbalizes no questions or concerns at this time. [facility] ALISON Spoke with Dr. Brii macias and john to discharge pt at 1600. [facility] Office Visiton 06-14-2023 Follow-up visit [id number] Jenifer Hernandez Linden 1940 F Date Provider Department Center 06/14/2023 HERBER BERMUDEZ Family History Problem Relation Age of Onset Other Father Stroke Brother Family Status - Relation Status Age at Father Brother Level of Service:39256 NE OFFICE/OUTPATIENT ESTABLISHED HIGH MDM 40 MIN Reason for Visit and Comments: Follow-up [828965] - 1 month- stress/echo [facility] Office Visiton 05-06-2023 Follow-up visit [id number] Jenifer Hernandez 1940 F Date Provider Department Center 05/06/2023 HERBER BERMUDEZ Family History Problem Relation Age of Onset Other Father Stroke Brother Family Status - Relation Status Age at Father Brother Level of Service:15742 NE OFFICE/OUTPATIENT ESTABLISHED MOD MDM 30 MIN Normal [facility] PROF CHEM 8 (BAS METB)on Anion gap [Moles/Vol] 13.7 mmol/L Normal [facility] Comment on above: Performed By: #### B MP #### [facility] [address] [address] [address] Vega Sorensen Calcium [Mass/Vol] 9.2 mg/dL Normal 8.5-10.1 [facility] Comment on above: Performed By: #### B MP #### [facility] [address] [address] [address] Vega Sorensen Chloride [Moles/Vol] 100 mmol/L Normal 98-107 [facility] Comment on above: Performed By: #### B MP #### [facility] [address] [address] [address] Vega Sorensen CO2 [Moles/Vol] 30.2 mmol/L Normal 21.0-32.0 [facility] Comment on above: Performed By: #### B MP #### [facility] [address] [address] [address] Vega Sorensen Creatinine [Mass/Vol] 1.69 mg/dL Critically high 0.55-1.02 [facility] Comment on above: Performed By: #### B MP #### [facility] [address] [address] [address] Vega Sorensen EGFR-AF BAHRAINI 35 mL/min/1.73m2 Critically low >=60 [facility] Comment on above: Performed By: #### B MP #### [facility] [address] [address] [address] Vega Sorensen EGFR-NON AF BAHRAINI 29 mL/min/1.73m2 Critically low >=60 [facility] Comment on above: Performed By: #### B MP #### [facility] [address] [address] [address] Vega Sorensen Glucose [Mass/Vol] 162 mg/dL Critically high 74-106 [facility] Comment on above: Performed By: #### B MP #### [facility] [address] [place], [place] [address] Dr. Vega Sorensen Potassium [Moles/Vol] 3.9 mmol/L Normal 3.5-5.1 [facility] Comment on above: Performed By: #### B MP #### [facility] [address] [address] [address] Vega Sorensen Sodium [Moles/Vol] 140 mmol/L Normal 136-145 [facility] Comment on above: Performed By: #### B MP #### [facility] [address] [address] [address] Vega Sorensen Urea nitrogen [Mass/Vol] 36.0 mg/dL Critically high 7.0-18.0 [facility] Comment on above: Performed By: #### B MP #### [facility] [address] [address] [address] Vega Sorensen Urea nitrogen/Creatinine [Mass ratio] 21.3 mg/mg Normal [facility] Comment on above: Performed By: #### B MP #### [facility] [address] [address] [address] Vega Sorensen PROF CHEM 8 (BAS METB)on Anion gap [Moles/Vol] 14.6 mmol/L Normal [facility] Comment on above: Performed By: #### B MP ####[facility] [address] [address]Dr. Vega Sorensen Calcium [Mass/Vol] 9.1 mg/dL Normal 8.5-10.1 [facility] Comment on above: Performed By: #### B MP ####[facility] [address] [id number]. Vega Sorensen Chloride [Moles/Vol] 99 mmol/L Normal 98-107 [facility] Comment on above: Performed By: #### B MP ####[facility] [address] [id number]. Vega Sorensen CO2 [Moles/Vol] 28.8 mmol/L Normal 21.0-32.0 [facility] Comment on above: Performed By: #### B MP ####[facility] [address] [id number]. Vega Sorensen Creatinine [Mass/Vol] 1.63 mg/dL Critically high 0.55-1.02 [facility] Comment on above: Performed By: #### B MP ####[facility] [address] [phone]. Vega Sorensen EGFR-AF BAHRAINI 37 mL/min/1.73m2 Critically low >=60 [facility] Comment on above: Performed By: #### B MP ####[facility] [address] [phone]. Vega Edu EGFR-NON AF BAHRAINI 30 mL/min/1.73m2 Critically low >=60 [facility] Comment on above: Performed By: #### B MP ####[facility] [address] [phone]. Angelawinsome Edu Glucose [Mass/Vol] 143 mg/dL Critically high 74-106 [facility] Comment on above: Performed By: #### B MP ####[facility] [address] [phone]. Vega Edu Potassium [Moles/Vol] 3.4 mmol/L Critically low 3.5-5.1 [facility] Comment on above: Performed By: #### B MP ####[facility] [address] [phone]. Angelawinsome Edu Sodium [Moles/Vol] 139 mmol/L Normal 136-145 [facility] Comment on above: Performed By: #### B MP ####[facility] [address] [phone]. Vega Edu Urea nitrogen [Mass/Vol] 38.0 mg/dL Critically high 7.0-18.0 [facility] Comment on above: Performed By: #### B MP ####[facility] [address] [phone]. Vega Sorensen Urea nitrogen/Creatinine [Mass ratio] 23.3 mg/mg Normal [facility] Comment on above: Performed By: #### B MP ####[facility] [address] [address]Dr. Vega Sorensen BNPon 08-18-2021 Natriuretic peptide B (Bld) [Mass/Vol] 5150.0 pg/mL Critically high <=1,800.0 [facility] Comment on above: Performed By: #### B MP, BNP #### [facility] [address] [address] [address] Vega Sorensen PROF CHEM 8 (BAS METB)on Anion gap [Moles/Vol] 12.9 mmol/L Normal [facility] Comment on above: Performed By: #### B MP, BNP #### [facility] [address] [place] [address] Dr. Vega Sorensen Calcium [Mass/Vol] 9.0 mg/dL Normal 8.5-10.1 [facility] Comment on above: Performed By: #### B MP, BNP #### [facility] [address] [place] [address] Dr. Vega Sorensen Chloride [Moles/Vol] 102 mmol/L Normal 98-107 [facility] Comment on above: Performed By: #### B MP, BNP #### [facility] [address] [address] [address] Vega Sorensen CO2 [Moles/Vol] 30.2 mmol/L Normal 21.0-32.0 [facility] Comment on above: Performed By: #### B MP, BNP #### [facility] [address] [address] [address] Vega Sorensen Creatinine [Mass/Vol] 1.90 mg/dL Critically high 0.55-1.02 [facility] Comment on above: Performed By: #### B MP, BNP #### [facility] [address] [address] [address] Vega Sorensen EGFR-AF BAHRAINI 31 mL/min/1.73m2 Critically low >=60 [facility] Comment on above: Performed By: #### B MP, BNP #### [facility] [address] [address] [address] Vega Sorensen EGFR-NON AF BAHRAINI 25 mL/min/1.73m2 Critically low >=60 [facility] Comment on above: Performed By: #### B MP, BNP #### [facility] [address] [address] [address] Vega Sorensen Glucose [Mass/Vol] 121 mg/dL Critically high 74-106 [facility] Comment on above: Performed By: #### B MP, BNP #### [facility] [address] [place] [address] Dr. Vega Sorensen Potassium [Moles/Vol] 4.1 mmol/L Normal 3.5-5.1 [facility] Comment on above: Performed By: #### B MP, BNP #### [facility] [address] [place] [address] Dr. Vega Sorensen Sodium [Moles/Vol] 141 mmol/L Normal 136-145 [facility] Comment on above: Performed By: #### B MP, BNP #### [facility] [address] [place] [address] Dr. Vega Sorensen Urea nitrogen [Mass/Vol] 34.0 mg/dL Critically high 7.0-18.0 [facility] Comment on above: Performed By: #### B MP, BNP #### [facility] [address] [place] [address] Dr. Vega Sorensen Urea nitrogen/Creatinine [Mass ratio] 17.9 mg/mg Normal [facility] Comment on above: Performed By: #### B MP, BNP #### [facility] [address] [place] [address] Dr. Vega Castaneda 03-30-2021 L ---- Specimen: [id number] Received: 03/30/21 Status: JORGE Wagner Num: [id number] Spec Type: Surgical Subm Dr: Chad Yeboah MD Tissues: A Soft Tissue/Surgical Margin-Other than Tumor,Mass,Lip or Rosita (ANTERIOR ORBIT Procedures: HE Stain, Gross/Micro L4 Patient Age/Sex Location Account Attending Physician Jenifer Hernandez 80/F [place] [id number] Chad Yeboah MD SPEC NUM: [id number] RECD: 03/30/21 STATUS: JORGE WAGNER NUM: [id number] RACHAEL: 03/30/21- DR: hCad Yeboah MD ENTERED: 03/30/21 CATIA BAXTER: SPEC TYPE: Surgical DEPT: S ORDERED: HE [...] (TAMMI/YJ) Specimen: [id number] Received: 03/30/21 Status: JORGE Wagner Num: [id number] Spec Type: Surgical Subm Dr: Chad Yeboah MD Tissues: A Soft Tissue/Surgical Margin-Other than Tumor,Mass,Lip or Rosita (ANTERIOR ORBIT Procedures: HE Stain, Gross/Micro L4 Patient: Jenifer Hernandez [id number] (Continued) Specimen: [id number] Received: 03/30/21 (Continued) Signed (signature on file) Mili Peguero MD 03/31/21 1648 Specimen: [id number] Received: 03/30/21 Status: JORGE Wagner Num: [id number] Spec Type: Surgical Subm Dr: Chad Yeboah MD Tissues: A Soft Tissue/Surgical Margin-Other than Tumor,Mass,Lip or Rosita (ANTERIOR ORBIT Procedures: HE Stain, Gross/Micro L4 Patient: Jenifer Hernandez [id number] (Continued) Specimen: [id number] Received: 03/30/21 (Continued) Microscopic Description One glass [...] characteristics were determined by the Laboratory of [facility]. Immunohistochemistry assays have not been validated on decalcified tissue. Results should be interpreted with caution given the possibility of false negative results on decalcified specimens. They have not been cleared by the [place] Food and Drug Administration. The FDA has determined that such clearance or approval is not necessary. CPT Codes 28848, 77145, 69519, 86145 Specimen: [id number] Received: 03/30/21 Status: JORGE Wagner Num: [id number] Spec Type: Surgical Subm Dr: Chad Yeboah MD Tissues: A Soft Tissue/Surgical Margin-Other than Tumor,Mass,Lip or Rosita (ANTERIOR ORBIT Procedures: HE Stain, Gross/Micro L4 Patient: Jenifer eHrnandez [id number] (Continued) (more content not included)... Normal [facility] CBC AUTO DIFFon 03-28-2021 BASO # 0.0 103/ul Normal 0.0-0.1 [facility] Comment on above: Performed By: #### C BC #### [facility] [address] [place] [address] Dr. Vega Sorensen Basophils/100 WBC (Bld) 0.5 % Normal 0.2-2.0 [facility] Comment on above: Performed By: #### C BC #### [facility] [address] [address] [address] Vega Sorensen EO # 0.1 103/ul Normal 0.0-0.7 [facility] Comment on above: Performed By: #### C BC #### [facility] [address] [place] [address] Dr. Vega Sorensen Eosinophils/100 WBC (Bld) 1.5 % Normal 0.9-7.0 [facility] Comment on above: Performed By: #### C BC #### [facility] [address] [place] [address] Dr. Vega Sorensen Erythrocyte distribution width (RBC) [Ratio] 13.7 % Normal 11.0-15.0 [facility] Comment on above: Performed By: #### C BC #### [facility] [address] [place] [address] Dr. Vega Sorensen Hematocrit (Bld) [Volume fraction] 38.1 % Normal 36.0-48.0 [facility] Comment on above: Performed By: #### C BC #### [facility] [address] [place] [address] Dr. Vega Sorensen Hemoglobin (Bld) [Mass/Vol] 12.5 g/dL Normal 12.0-16.0 [facility] Comment on above: Performed By: #### C BC #### [facility] [address] [place] [address] Dr. Vega Sorensen IG # 0.03 10e3/ul Normal 0.00-0.03 [facility] Comment on above: Performed By: #### C BC #### [facility] [address] [place] [address] Dr. Vega Sorensen IG % 0.4 % Normal 0.0-0.5 [facility] Comment on above: Performed By: #### C BC #### [facility] [address] [place] [address] Dr. Vega Sorensen LYMPH # 1.4 103/ul Normal 1.2-3.8 [facility] Comment on above: Performed By: #### C BC #### [facility] [address] [place] [address] Dr. Vega Sorensen Lymphocytes/100 WBC (Bld) 18.7 % Critically low 20.5-60.0 [facility] Comment on above: Performed By: #### C BC #### [facility] [address] [place] [address] Dr. Vega Sorensen MANUAL DIFF REQ NO Normal [facility] [place] [facility] Comment on above: Performed By: #### C BC #### [facility] [address] [place] [address] Dr. Vega Sorensen MCH (RBC) [Entitic mass] 34.0 pg Normal 26.7-34.0 [facility] Comment on above: Performed By: #### C BC #### [facility] [address] [place] [address] Dr. Vega Sorensen MCHC (RBC) [Mass/Vol] 32.8 g/dL Normal 29.9-35.2 [facility] Comment on above: Performed By: #### C BC #### [facility] [address] [place] [address] Dr. Vega Sorensen MCV (RBC) [Entitic vol] 103.5 fL Critically high 81.0-99.0 [facility] Comment on above: Performed By: #### C BC #### [facility] [address] [place] [address] Dr. Vega Sorensen MONO # 1.0 103/ul Critically high 0.3-0.8 [facility] [place] [facility] Comment on above: Performed By: #### C BC #### [facility] [address] [place] [address] Dr. Vega Sorensen Monocytes/100 WBC (Bld) 12.8 % Critically high 1.7-12.0 [facility] Comment on above: Performed By: #### C BC #### [facility] [address] [place] [address] Dr. Vega Sorensen NEUT # 5.0 103/ul Normal 1.4-6.5 [facility] Comment on above: Performed By: #### C BC #### [facility] [address] [place] [address] Dr. Vega Sorensen Neutrophils/100 WBC (Bld) 66.1 % Normal 43.0-75.0 [facility] Comment on above: Performed By: #### C BC #### [facility] [address] [place] [address] Dr. Vega Sorensen Platelet mean volume (Bld) [Entitic vol] 9.2 fL Critically low 9.5-13.5 [facility] Comment on above: Performed By: #### C BC #### [facility] [address] [place] [address] Dr. Vega Sorensen PLT 180 103/ul Normal 150-450 [facility] Comment on above: Performed By: #### C BC #### [facility] [address] [place] [address] Dr. Vega Sorensen RBC 3.68 106/ul Critically low 4.20-5.40 [facility] [place] [facility] Comment on above: Performed By: #### C BC #### [facility] [address] [place] [address] Dr. Vega Sorensen WBC 7.5 103/ul Normal 4.0-11.0 [facility] Comment on above: Performed By: #### C BC #### [facility] [address] [place] [address] Dr. Vega Sorensen BNPon 03-07-2021 Natriuretic peptide B (Bld) [Mass/Vol] 2297.0 pg/mL Critically high <=1,800.0 [facility] Comment on above: Performed By: #### B MP, BNP #### [facility] [address] [place] [address] Dr. Vega Sorensen PROF CHEM 8 (BAS METB)on Anion gap [Moles/Vol] 10.0 mmol/L Normal [facility] Comment on above: Performed By: #### B MP, BNP #### [facility] [address] [place] [address] Dr. Vega Sorensen Calcium [Mass/Vol] 9.1 mg/dL Normal 8.4-10.2 [facility] Comment on above: Performed By: #### B MP, BNP #### [facility] [address] [place] [address] Dr. Vega Sorensen Chloride [Moles/Vol] 101 mmol/L Normal 98-107 [facility] Comment on above: Performed By: #### B MP, BNP #### [facility] [address] [place] [address] Dr. Vega Sorensen CO2 [Moles/Vol] 31.8 mmol/L Critically high 22.0-30.0 [facility] Comment on above: Performed By: #### B MP, BNP #### [facility] [address] [place] [address] Dr. Vega Sorensen Creatinine [Mass/Vol] 1.70 mg/dL Critically high 0.52-1.04 [facility] Comment on above: Performed By: #### B MP, BNP #### [facility] [address] [place] [address] Dr. Vega Sorensen EGFR-AF BAHRAINI 35 mL/min/1.73m2 Critically low >=60 [facility] Comment on above: Performed By: #### B MP, BNP #### [facility] [address] [place] [address] Dr. Vega Sorensen EGFR-NON AF BAHRAINI 29 mL/min/1.73m2 Critically low >=60 [facility] Comment on above: Performed By: #### B MP, BNP #### [facility] [address] [place] [address] Dr. Vega Sorensen Glucose [Mass/Vol] 160 mg/dL Critically high 74-106 [facility] Comment on above: Performed By: #### B MP, BNP #### [facility] [address] [place] [address] Dr. Vega Sorensen Potassium [Moles/Vol] 3.8 mmol/L Normal 3.4-5.0 [facility] Comment on above: Performed By: #### B MP, BNP #### [facility] [address] [place] [address] Dr. Vega Sorensen Sodium [Moles/Vol] 139 mmol/L Normal 137-145 [facility] Comment on above: Performed By: #### B MP, BNP #### [facility] [address] [place] [address] Dr. Vega Sornesen Urea nitrogen [Mass/Vol] 36.0 mg/dL Critically high 7.0-17.0 [facility] Comment on above: Performed By: #### B MP, BNP #### [facility] [address] [place] [address] Dr. Vega Sorensen Urea nitrogen/Creatinine [Mass ratio] 21.2 mg/mg Normal [facility] Comment on above: Performed By: #### B MP, BNP #### [facility] [address] [place] [address] Dr. Vega Sorensen BASIC METABOLIC PANELon 11-2 Calcium [Mass/Vol] 8.7 mg/dL Normal 8.6-10.3 [facility] Comment on above: Order Comment: No: D o not add to previous draw Performed By: #### 0 0071, 19841, 71628, 34106 #### [facility] [address] [place] [address], [facility] Chloride [Moles/Vol] 95 mmol/L Low 98-107 [facility] Comment on above: Order Comment: No: D o not add to previous draw Performed By: #### 0 0071, 60152, 16367, 24431 #### [facility] [address] [place] [address], [place] CO2 [Moles/Vol] 33 mmol/L High 21-31 [facility] Comment on above: Order Comment: No: D o not add to previous draw Performed By: #### 0 0071, 12999, 34864, 39552 #### [facility] [address] [place] [address], [place] Creatinine [Mass/Vol] 1.21 mg/dL High 0.60-1.20 [facility] Comment on above: Order Comment: No: D o not add to previous draw Performed By: #### 0 0071, 41250, 68417, 64601 #### [facility] [address] [place] [address], [place] GFR/1.73 sq M predicted among blacks MDRD (S/P/Bld) [Vol rate/Area] 52 ml/min/1.73sq m Abnormal >60 [facility] Comment on above: Order Comment: No: D o not add to previous draw Result Comment: Calc ulation may not be valid for patients over 70 years Performed By: #### 0 0071, 00506, 75532, 38079 #### [facility] [address] [place] [address], [place] GFR/1.73 sq M predicted among non-blacks MDRD (S/P/Bld) [Vol rate/Area] 43 ml/min/1.73sq m Abnormal >60 [facility] Comment on above: Order Comment: No: D o not add to previous draw Result Comment: Calc ulation may not be valid for patients over 70 years Performed By: #### 0 0071, 08850, 51037, 61077 #### [facility] [address] [place] [address], [place] Glucose [Mass/Vol] 105 mg/dL High 70-100 [facility] Comment on above: Order Comment: No: D o not add to previous draw Performed By: #### 0 0071, 09956, 55916, 17072 #### [facility] [address] [place] [address], [place] Potassium [Moles/Vol] 3.2 mmol/L Low 3.5-5.1 [facility] Comment on above: Order Comment: No: D o not add to previous draw Performed By: #### 0 0071, 64039, 40066, 51240 #### [facility] [address] [place] [address], [place] Sodium [Moles/Vol] 134 mmol/L Low 136-145 [facility] Comment on above: Order Comment: No: D o not add to previous draw Performed By: #### 0 0071, 73494, 59066, 69638 #### [facility] [address] [place] [address], [place] Urea nitrogen [Mass/Vol] 22 mg/dL Normal 7-25 [facility] Comment on above: Order Comment: No: D o not add to previous draw Performed By: #### 0 0071, 27131, 13892, 18888 #### [facility] [address] [place] [address], [place] Calcium [Mass/Vol] 8.5 mg/dL Low 8.6-10.3 [facility] Comment on above: Order Comment: No: D o not add to previous draw Performed By: #### 0 0071, 95656, 85753, 87636 #### [facility] [address] [place] [address], [place] Chloride [Moles/Vol] 95 mmol/L Low 98-107 [facility] Comment on above: Order Comment: No: D o not add to previous draw Performed By: #### 0 0071, 35284, 14052, 05109 #### [facility] [address] [place] [address], [place] CO2 [Moles/Vol] 34 mmol/L High 21-31 [facility] Comment on above: Order Comment: No: D o not add to previous draw Performed By: #### 0 0071, 38078, 48915, 38893 #### [facility] [address] [place] [address], [facility] Creatinine [Mass/Vol] 1.15 mg/dL Normal 0.60-1.20 [facility] Comment on above: Order Comment: No: D o not add to previous draw Performed By: #### 0 0071, 30316, 83494, 08220 #### [facility] [address] [place] [address], [facility] GFR/1.73 sq M predicted among blacks MDRD (S/P/Bld) [Vol rate/Area] 55 ml/min/1.73sq m Abnormal >60 [facility] Comment on above: Order Comment: No: D o not add to previous draw Result Comment: Calc ulation may not be valid for patients over 70 years Performed By: #### 0 0071, 47628, 59266, 85491 #### [facility] [address] [place] [address], [facility] GFR/1.73 sq M predicted among non-blacks MDRD (S/P/Bld) [Vol rate/Area] 45 ml/min/1.73sq m Abnormal >60 [facility] Comment on above: Order Comment: No: D o not add to previous draw Result Comment: Calc ulation may not be valid for patients over 70 years Performed By: #### 0 0071, 58234, 99594, 30785 #### [facility] [address] [place] [address], [facility] Glucose [Mass/Vol] 109 mg/dL High 70-100 [facility] Comment on above: Order Comment: No: D o not add to previous draw Performed By: #### 0 0071, 44458, 72823, 65863 #### [facility] [address] [place] [address], [place] Potassium [Moles/Vol] 2.8 mmol/L Low 3.5-5.1 [facility] Comment on above: Order Comment: No: D o not add to previous draw Performed By: #### 0 0071, 21922, 68788, 63437 #### [facility] [address] [place] [address], [facility] Sodium [Moles/Vol] 136 mmol/L Normal 136-145 [facility] Comment on above: Order Comment: No: D o not add to previous draw Performed By: #### 0 0071, 97669, 63349, 93214 #### [facility] [address] [place] [address], [place] Urea nitrogen [Mass/Vol] 26 mg/dL High 7-25 [facility] Comment on above: Order Comment: No: D o not add to previous draw Performed By: #### 0 0071, 12519, 94186, 13013 #### [facility] [address] [place] [address], [facility] MAGNESIUM BLOODon 01-14-2019 Magnesium [Mass/Vol] 2.1 mg/dL Normal 1.9-2.7 [facility] Comment on above: Order Comment: No: D o not add to previous draw Performed By: #### 0 0071, 87418, 57760, 32868 #### [facility] [address] [place] [address], [facility] Magnesium [Mass/Vol] 1.6 mg/dL Low 1.9-2.7 [facility] Comment on above: Order Comment: No: D o not add to previous draw Performed By: #### 0 0071, 22787, 87406, 27465 #### [facility] [address] [place] [address], [place] BASIC METABOLIC PANELon 12-20 Calcium [Mass/Vol] 8.6 mg/dL Normal 8.6-10.3 [facility] Comment on above: Order Comment: No: D o not add to previous draw Performed By: #### 0 0071, 12200, 33356, 54623 #### [facility] [address] [place] [address], [place] Chloride [Moles/Vol] 96 mmol/L Low 98-107 [facility] Comment on above: Order Comment: No: D o not add to previous draw Performed By: #### 0 0071, 20555, 61481, 89137 #### [facility] [address] [place] [address], [place] CO2 [Moles/Vol] 34 mmol/L High 21-31 [facility] Comment on above: Order Comment: No: D o not add to previous draw Performed By: #### 0 0071, 24550, 95327, 26702 #### [facility] [address] [place] [address], [facility] Creatinine [Mass/Vol] 0.97 mg/dL Normal 0.60-1.20 [facility] Comment on above: Order Comment: No: D o not add to previous draw Performed By: #### 0 0071, 84270, 64112, 05265 #### [facility] [address] [place] [address], [facility] GFR/1.73 sq M predicted among blacks MDRD (S/P/Bld) [Vol rate/Area] mL/min/{1.73_m2} Normal >60 [facility] Comment on above: Order Comment: No: D o not add to previous draw Result Comment: Calc ulation may not be valid for patients over 70 years Performed By: #### 0 0071, 74926, 06715, 09260 #### [facility] [address] [place] [address], [facility] GFR/1.73 sq M predicted among non-blacks MDRD (S/P/Bld) [Vol rate/Area] 55 ml/min/1.73sq m Abnormal >60 [facility] Comment on above: Order Comment: No: D o not add to previous draw Result Comment: Calc ulation may not be valid for patients over 70 years Performed By: #### 0 0071, 12652, 06711, 32289 #### [facility] [address] [place] [address], [facility] Glucose [Mass/Vol] 93 mg/dL Normal 70-100 [facility] Comment on above: Order Comment: No: D o not add to previous draw Performed By: #### 0 0071, 36643, 84537, 78247 #### [facility] [address] [place] [address], [facility] Potassium [Moles/Vol] 3.4 mmol/L Low 3.5-5.1 [facility] Comment on above: Order Comment: No: D o not add to previous draw Performed By: #### 0 0071, 12858, 76554, 28971 #### [facility] [address] [place] [id number], [facility] Sodium [Moles/Vol] 138 mmol/L Normal 136-145 [facility] Comment on above: Order Comment: No: D o not add to previous draw Performed By: #### 0 0071, 70720, 04145, 76571 #### [facility] [address] [place] [address], [facility] Urea nitrogen [Mass/Vol] 23 mg/dL Normal 7-25 [facility] Comment on above: Order Comment: No: D o not add to previous draw Performed By: #### 0 0071, 49358, 95088, 66284 #### [facility] [address] CBC COMPLETE BLOOD COUNTon 03-13-2018 Erythrocyte distribution width (RBC) [Ratio] Unable to calculate Normal 11.5-15.0 [facility] Comment on above: Order Comment: No: D o not add to previous draw Performed By: #### 0 0071, 40766, 49972, 12458 #### [facility] [address] [place] [address], [facility] Hematocrit (Bld) [Volume fraction] 29.9 % Low 36.0-45.0 [facility] Comment on above: Order Comment: No: D o not add to previous draw Performed By: #### 0 0071, 76770, 93502, 08932 #### [facility] [address] [place] [address], [facility] Hemoglobin (Bld) [Mass/Vol] 9.5 g/dL Low 12.0-15.0 [facility] Comment on above: Order Comment: No: D o not add to previous draw Performed By: #### 0 0071, 92158, 80559, 65126 #### [facility] [address] [place] [address], [facility] MCH (RBC) [Entitic mass] 30.6 pg Normal 27.0-33.0 [facility] Comment on above: Order Comment: No: D o not add to previous draw Performed By: #### 0 0071, 35666, 83798, 45938 #### [facility] [address] [place] [address], [facility] MCHC (RBC) [Mass/Vol] 31.8 g/dL Low 32.0-35.0 [facility] Comment on above: Order Comment: No: D o not add to previous draw Performed By: #### 0 0071, 15352, 39251, 66235 #### [facility] [address] [place] [address], [facility] MCV (RBC) [Entitic vol] 96.5 fL Normal 82.0-98.0 [facility] Comment on above: Order Comment: No: D o not add to previous draw Performed By: #### 0 0071, 03478, 25214, 03624 #### [facility] [address] [place] [address], [facility] Nucleated RBC/100 WBC (Bld) [Ratio] 0 % Normal 0-0 [facility] Comment on above: Order Comment: No: D o not add to previous draw Performed By: #### 0 0071, 98211, 77840, 29458 #### [facility] [address] [place] [address], [facility] PLAT CNT 209 10*3/uL Normal 150-400 [facility] Comment on above: Order Comment: No: D o not add to previous draw Performed By: #### 0 0071, 39081, 34346, 20252 #### [facility] [address] [place] [address], [facility] RBC (Bld) [#/Vol] 3.10 10*6/uL Low 3.80-5.00 [facility] Comment on above: Order Comment: No: D o not add to previous draw Performed By: #### 0 0071, 60150, 55064, 60125 #### [facility] [address] [place] [address], [facility] WBC (Bld) [#/Vol] 7.86 10*3/uL Normal 4.00-10.60 [facility] Comment on above: Order Comment: No: D o not add to previous draw Performed By: #### 0 0071, 75249, 13362, 68897 #### [facility] [address] [place] [address], [facility] BASIC METABOLIC PANELon 11-2 Calcium [Mass/Vol] 9.3 mg/dL Normal 8.6-10.3 [facility] Comment on above: Order Comment: No: D o not add to previous draw Performed By: #### 0 0071, 38828, 99643, 74661 #### [facility] [address] [place] [address], [facility] Chloride [Moles/Vol] 103 mmol/L Normal 98-107 [facility] Comment on above: Order Comment: No: D o not add to previous draw Performed By: #### 0 0071, 22675, 81157, 20814 #### [facility] [address] [place] [address], [place] CO2 [Moles/Vol] 32 mmol/L High 21-31 [facility] Comment on above: Order Comment: No: D o not add to previous draw Performed By: #### 0 0071, 61316, 40293, 56413 #### [facility] [address] [place] [address], [place] Creatinine [Mass/Vol] 1.14 mg/dL Normal 0.60-1.20 [facility] Comment on above: Order Comment: No: D o not add to previous draw Performed By: #### 0 0071, 40420, 23688, 35044 #### [facility] [address] [place] [address], [place] GFR/1.73 sq M predicted among blacks MDRD (S/P/Bld) [Vol rate/Area] 56 ml/min/1.73sq m Abnormal >60 [facility] Comment on above: Order Comment: No: D o not add to previous draw Result Comment: Calc ulation may not be valid for patients over 70 years Performed By: #### 0 0071, 50122, 00957, 46554 #### [facility] [address] [place] [address], [place] GFR/1.73 sq M predicted among non-blacks MDRD (S/P/Bld) [Vol rate/Area] 46 ml/min/1.73sq m Abnormal >60 [facility] Comment on above: Order Comment: No: D o not add to previous draw Result Comment: Calc ulation may not be valid for patients over 70 years Performed By: #### 0 0071, 48115, 23785, 72347 #### [facility] [address] [place] [address], [place] Glucose [Mass/Vol] 93 mg/dL Normal 70-100 [facility] Comment on above: Order Comment: No: D o not add to previous draw Performed By: #### 0 0071, 60689, 22333, 68518 #### [facility] [address] [place] [address], [place] Potassium [Moles/Vol] 3.5 mmol/L Normal 3.5-5.1 [facility] Comment on above: Order Comment: No: D o not add to previous draw Performed By: #### 0 0071, 63352, 29998, 05833 #### [facility] [address] [place] [address], [facility] Sodium [Moles/Vol] 142 mmol/L Normal 136-145 [facility] Comment on above: Order Comment: No: D o not add to previous draw Performed By: #### 0 0071, 36138, 97274, 92928 #### [facility] [address] [place] [address], [facility] Urea nitrogen [Mass/Vol] 27 mg/dL High 7-25 [facility] Comment on above: Order Comment: No: D o not add to previous draw Performed By: #### 0 0071, 03088, 71325, 87867 #### [facility] [address] [place] [address], [facility] CBC COMPLETE BLOOD COUNTon 03-11-2018 Erythrocyte distribution width (RBC) [Ratio] Unable to calculate Normal 11.5-15.0 [facility] Comment on above: Order Comment: No: D o not add to previous draw Performed By: #### 0 0071, 91975, 07999, 13171 #### [facility] [address] [place] [address], [facility] Hematocrit (Bld) [Volume fraction] 27.8 % Low 36.0-45.0 [facility] Comment on above: Order Comment: No: D o not add to previous draw Performed By: #### 0 0071, 90155, 68855, 53039 #### [facility] [address] [place] [address], [facility] Hemoglobin (Bld) [Mass/Vol] 8.4 g/dL Low 12.0-15.0 [facility] Comment on above: Order Comment: No: D o not add to previous draw Performed By: #### 0 0071, 11814, 29220, 54912 #### [facility] [address] [place] [address], [facility] MCH (RBC) [Entitic mass] 29.8 pg Normal 27.0-33.0 [facility] Comment on above: Order Comment: No: D o not add to previous draw Performed By: #### 0 0071, 97782, 12347, 95092 #### [facility] [address] [facility] [place] [address], [facility] MCHC (RBC) [Mass/Vol] 30.2 g/dL Low 32.0-35.0 [facility] Comment on above: Order Comment: No: D o not add to previous draw Performed By: #### 0 0071, 53599, 79214, 74112 #### [facility] [address] [facility] [place] [address], [facility] MCV (RBC) [Entitic vol] 98.6 fL High 82.0-98.0 [facility] Comment on above: Order Comment: No: D o not add to previous draw Performed By: #### 0 0071, 24357, 16367, 03367 #### [facility] [address] [facility] [place] [place] [address], [facility] Nucleated RBC/100 WBC (Bld) [Ratio] 0 % Normal 0-0 [facility] Comment on above: Order Comment: No: D o not add to previous draw Performed By: #### 0 0071, 83940, 19969, 09503 #### [facility] [address] [facility] [place] [address], [facility] PLAT CNT 205 10*3/uL Normal 150-400 [facility] Comment on above: Order Comment: No: D o not add to previous draw Performed By: #### 0 0071, 09606, 19419, 90156 #### [facility] [address] [place] [address], [facility] RBC (Bld) [#/Vol] 2.82 10*6/uL Low 3.80-5.00 [facility] Comment on above: Order Comment: No: D o not add to previous draw Performed By: #### 0 0071, 13905, 28002, 11978 #### [facility] [address] [place] [address], [facility] WBC (Bld) [#/Vol] 7.35 10*3/uL Normal 4.00-10.60 [facility] Comment on above: Order Comment: No: D o not add to previous draw Performed By: #### 0 0071, 39096, 89940, 35720 #### [facility] [address] [place] [address], [place] BASIC METABOLIC PANELon 11-2 Calcium [Mass/Vol] 9.0 mg/dL Normal 8.6-10.3 [facility] Comment on above: Order Comment: No: D o not add to previous draw Performed By: #### 0 0071, 53004, 98620, 06607 #### [facility] [address] [place] [address], [place] Chloride [Moles/Vol] 106 mmol/L Normal 98-107 [facility] Comment on above: Order Comment: No: D o not add to previous draw Performed By: #### 0 0071, 82606, 07809, 41480 #### [facility] [address] [place] [address], [place] CO2 [Moles/Vol] 29 mmol/L Normal 21-31 [facility] Comment on above: Order Comment: No: D o not add to previous draw Performed By: #### 0 0071, 00450, 08401, 35160 #### [facility] [address] [place] [address], [place] Creatinine [Mass/Vol] 1.33 mg/dL High 0.60-1.20 [facility] Comment on above: Order Comment: No: D o not add to previous draw Performed By: #### 0 0071, 03987, 02259, 22405 #### [facility] [address] [place] [address], [place] GFR/1.73 sq M predicted among blacks MDRD (S/P/Bld) [Vol rate/Area] 47 ml/min/1.73sq m Abnormal >60 [facility] Comment on above: Order Comment: No: D o not add to previous draw Result Comment: Calc ulation may not be valid for patients over 70 years Performed By: #### 0 0071, 52913, 28488, 62825 #### [facility] [address] [place] [address], [place] GFR/1.73 sq M predicted among non-blacks MDRD (S/P/Bld) [Vol rate/Area] 39 ml/min/1.73sq m Abnormal >60 [facility] Comment on above: Order Comment: No: D o not add to previous draw Result Comment: Calc ulation may not be valid for patients over 70 years Performed By: #### 0 0071, 92530, 05291, 62768 #### [facility] [address] [place] [address], [place] Glucose [Mass/Vol] 92 mg/dL Normal 70-100 [facility] Comment on above: Order Comment: No: D o not add to previous draw Performed By: #### 0 0071, 01970, 29623, 56851 #### [facility] [address] [place] [address], [place] Potassium [Moles/Vol] 3.9 mmol/L Normal 3.5-5.1 [facility] Comment on above: Order Comment: No: D o not add to previous draw Performed By: #### 0 0071, 37365, 21515, 32733 #### [facility] [address] [place] [address], [place] Sodium [Moles/Vol] 141 mmol/L Normal 136-145 [facility] Comment on above: Order Comment: No: D o not add to previous draw Performed By: #### 0 0071, 01865, 30458, 15352 #### [facility] [address] [place] [address], [facility] Urea nitrogen [Mass/Vol] 34 mg/dL High 7-25 [facility] Comment on above: Order Comment: No: D o not add to previous draw Performed By: #### 0 0071, 69639, 71589, 60135 #### [facility] [address] [place] [address], [facility] CBC COMPLETE BLOOD COUNTon 03-10-2018 Erythrocyte distribution width (RBC) [Ratio] ---- Normal 11.5-15.0 [facility] Comment on above: Order Comment: No: D o not add to previous draw Performed By: #### 0 0071, 42970, 21103, 64437 #### [facility] [address] [place] [address], [facility] Hematocrit (Bld) [Volume fraction] 27.6 % Low 36.0-45.0 [facility] Comment on above: Order Comment: No: D o not add to previous draw Performed By: #### 0 0071, 33754, 29740, 08528 #### [facility] [address] [place] [address], [facility] Hemoglobin (Bld) [Mass/Vol] 8.2 g/dL Low 12.0-15.0 [facility] Comment on above: Order Comment: No: D o not add to previous draw Performed By: #### 0 0071, 78626, 95900, 85793 #### [facility] [address] [place] [address], [place] MCH (RBC) [Entitic mass] 29.6 pg Normal 27.0-33.0 [facility] Comment on above: Order Comment: No: D o not add to previous draw Performed By: #### 0 0071, 45567, 73427, 64789 #### [facility] [address] [place] [address], [place] MCHC (RBC) [Mass/Vol] 29.7 g/dL Low 32.0-35.0 [facility] Comment on above: Order Comment: No: D o not add to previous draw Performed By: #### 0 0071, 43797, 55009, 47972 #### [facility] [address] [place] [address], [facility] MCV (RBC) [Entitic vol] 99.6 fL High 82.0-98.0 [facility] Comment on above: Order Comment: No: D o not add to previous draw Performed By: #### 0 0071, 02776, 95026, 80142 #### [facility] [address] [place] [address], [facility] Nucleated RBC/100 WBC (Bld) [Ratio] 0 % Normal 0-0 [facility] Comment on above: Order Comment: No: D o not add to previous draw Performed By: #### 0 0071, 27520, 53929, 03562 #### [facility] [address] [place] [address], [facility] PLAT CNT 213 10*3/uL Normal 150-400 [facility] Comment on above: Order Comment: No: D o not add to previous draw Performed By: #### 0 0071, 36162, 40014, 29720 #### [facility] [address] [place] [address], [facility] RBC (Bld) [#/Vol] 2.77 10*6/uL Low 3.80-5.00 [facility] Comment on above: Order Comment: No: D o not add to previous draw Performed By: #### 0 0071, 05611, 01881, 33681 #### [facility] [address] [place] [address], [facility] WBC (Bld) [#/Vol] 7.75 10*3/uL Normal 4.00-10.60 [facility] Comment on above: Order Comment: No: D o not add to previous draw Performed By: #### 0 0071, 93517, 23320, 40936 #### [facility] [address] [place], [place] [address] [place] [address] CBC COMPLETE BLOOD COUNTon 03-09-2018 Erythrocyte distribution width (RBC) [Ratio] 27.1 % High 11.5-15.0 [facility] Comment on above: Order Comment: No: D o not add to previous draw Performed By: #### 0 0071, 55081, 49408, 92229 #### [facility] [address] [place] [address], [facility] Hematocrit (Bld) [Volume fraction] 29.0 % Low 36.0-45.0 [facility] Comment on above: Order Comment: No: D o not add to previous draw Performed By: #### 0 0071, 12699, 98190, 76764 #### [facility] [address] [place] [address], [facility] Hemoglobin (Bld) [Mass/Vol] 8.9 g/dL Low 12.0-15.0 [facility] Comment on above: Order Comment: No: D o not add to previous draw Performed By: #### 0 0071, 27124, 41864, 14068 #### [facility] [address] [place] [address], [facility] MCH (RBC) [Entitic mass] 30.5 pg Normal 27.0-33.0 [facility] Comment on above: Order Comment: No: D o not add to previous draw Performed By: #### 0 0071, 23774, 37773, 39783 #### [facility] [address] [place] [address], [facility] MCHC (RBC) [Mass/Vol] 30.7 g/dL Low 32.0-35.0 [facility] Comment on above: Order Comment: No: D o not add to previous draw Performed By: #### 0 0071, 61282, 11231, 17556 #### [facility] [address] MCV (RBC) [Entitic vol] 99.3 fL High 82.0-98.0 [facility] Comment on above: Order Comment: No: D o not add to previous draw Performed By: #### 0 0071, 68518, 26987, 93106 #### [facility] [address] [facility] [place] [address], [facility] Nucleated RBC/100 WBC (Bld) [Ratio] 0 % Normal 0-0 [facility] Comment on above: Order Comment: No: D o not add to previous draw Performed By: #### 0 0071, 62868, 78043, 49308 #### [facility] [address] [place] [address], [facility] PLAT CNT 232 10*3/uL Normal 150-400 [facility] Comment on above: Order Comment: No: D o not add to previous draw Performed By: #### 0 0071, 51731, 13417, 86619 #### [facility] [address] [place] [address], [facility] RBC (Bld) [#/Vol] 2.92 10*6/uL Low 3.80-5.00 [facility] Comment on above: Order Comment: No: D o not add to previous draw Performed By: #### 0 0071, 76080, 48728, 49155 #### [facility] [address] [facility] [place] [address], [facility] WBC (Bld) [#/Vol] 9.20 10*3/uL Normal 4.00-10.60 [facility] Comment on above: Order Comment: No: D o not add to previous draw Performed By: #### 0 0071, 59776, 74205, 49749 #### [facility] [facility] [address] [place] [address], [facility] COMP METABOLIC PANELon 01-07 Albumin [Mass/Vol] 3.7 g/dL Normal 3.5-5.7 [facility] Comment on above: Performed By: #### 0 0071, 12381, 17729, 77541 #### [facility] [address] [place] [address], [place] ALKALINE PHOSPH 107 IU/L High 34-104 [facility] Comment on above: Performed By: #### 0 0071, 64097, 50835, 21847 #### [facility] [address] [place] [address], [place] ALT [Catalytic activity/Vol] 16 U/L Normal 7-52 [facility] Comment on above: Performed By: #### 0 0071, 07732, 52644, 19449 #### [facility] [address] [place] [address], [place] AST [Catalytic activity/Vol] 22 U/L Normal 13-39 [facility] Comment on above: Performed By: #### 0 0071, 95430, 09958, 57326 #### [facility] [address] [place] [address], [place] Bilirubin [Mass/Vol] 1.1 mg/dL High 0.3-1.0 [facility] Comment on above: Performed By: #### 0 0071, 11971, 27483, 45283 #### [facility] [address] [place] [address], [place] Calcium [Mass/Vol] 8.8 mg/dL Normal 8.6-10.3 [facility] Comment on above: Performed By: #### 0 0071, 36906, 75857, 10032 #### [facility] [address] [place] [address], [place] Chloride [Moles/Vol] 107 mmol/L Normal 98-107 [facility] Comment on above: Performed By: #### 0 0071, 98024, 22888, 92874 #### [facility] [address] [place] [address], [place] CO2 [Moles/Vol] 28 mmol/L Normal 21-31 [facility] Comment on above: Performed By: #### 0 0071, 10407, 53365, 34489 #### [facility] [address] [place] [address], [place] Creatinine [Mass/Vol] 1.73 mg/dL High 0.60-1.20 [facility] Comment on above: Performed By: #### 0 0071, 76061, 07086, 68480 #### [facility] [address] [place] [address], [facility] GFR/1.73 sq M predicted among blacks MDRD (S/P/Bld) [Vol rate/Area] 34 ml/min/1.73sq m Abnormal >60 [facility] Comment on above: Result Comment: Calc ulation may not be valid for patients over 70 years Performed By: #### 0 0071, 99376, 37843, 29006 #### [facility] [address] [place] [address], [facility] GFR/1.73 sq M predicted among non-blacks MDRD (S/P/Bld) [Vol rate/Area] 28 ml/min/1.73sq m Abnormal >60 [facility] Comment on above: Result Comment: Calc ulation may not be valid for patients over 70 years Performed By: #### 0 0071, 92579, 55552, 45852 #### [facility] [address] [place] [address], [place] Glucose [Mass/Vol] 98 mg/dL Normal 70-100 [facility] Comment on above: Performed By: #### 0 0071, 02886, 70312, 96732 #### [facility] [address] [place] [address], [place] Potassium [Moles/Vol] 4.6 mmol/L Normal 3.5-5.1 [facility] Comment on above: Performed By: #### 0 0071, 06895, 06647, 74932 #### [facility] [address] [place] [address], [facility] Protein [Mass/Vol] 6.6 g/dL Normal 6.0-8.3 [facility] Comment on above: Performed By: #### 0 0071, 50756, 53346, 71483 #### [facility] [address] [place] [address], [facility] Sodium [Moles/Vol] 141 mmol/L Normal 136-145 [facility] Comment on above: Performed By: #### 0 0071, 96798, 51434, 48047 #### [facility] [address] [facility] [place] [address], [facility] Urea nitrogen [Mass/Vol] 42 mg/dL High 7-25 [facility] Comment on above: Performed By: #### 0 0071, 01239, 93010, 02194 #### [facility] [address] [facility]. [address] Cardiovascular Lab Reporton 01-07-2019 Cardiovascular Lab Report [facility] Patient Name: [facility] MR #: [id number] Physician: Kevon Trejo Abd Department of MD [facility] Service Date: 01/07/2019 Division of Birthdate: 1940 Cardiology Room #: 3CD [id number] Adult Cardiovascular Services [place] [address] Cardiovascular Laboratory Report PSYCHIATRY ADULT PHYSICIAN: Dr. Dedrick Washington, refrigeration service technician. INDICATION: This is an 78-year-old female with [...] The patient was also notified that a refrigeration service technician will be assisting during the course of [...] to the right internal jugular vein. Then, Fossil sheath was inserted 6-Bhutanese x 11 cm. Then, under fluoroscopy guidance, [...] Serrano MD Date Trans: 01/07/2019 03:58 P/mmo [id number] cc: Edu Odonnell D.O. [facility] [place] [facility] [address] Normal [facility] MAGNESIUM BLOODon 01-07-2019 Magnesium [Mass/Vol] 1.9 mg/dL Normal 1.9-2.7 [facility] Comment on above: Order Comment: No: D o not add to previous draw Performed By: #### 0 0071, 71877, 53941, 12260 #### [facility] [address] [facility] [address] PHOSPHORUS BLOODon 9 Phosphate [Mass/Vol] 2.8 mg/dL Normal 2.5-5.0 [facility] Comment on above: Order Comment: No: D o not add to previous draw Performed By: #### 0 0071, 69816, 79705, 18117 #### [facility] [address] APTTon 01-06-2019 aPTT Coag (Bld) [Time] 33.6 s Normal 25.0-35.0 [facility] Comment on above: Order Comment: No: [...] THIS PURPOSE. Performed By: #### 0 0071, 11261, 48536, 35488 #### [facility] [address] [place] [address], [facility] BASIC METABOLIC PANELon 11- Calcium [Mass/Vol] 8.8 mg/dL Normal 8.6-10.3 [facility] Comment on above: Order Comment: No: D o not add to previous draw Performed By: #### 0 0071, 21390, 28831, 85387 #### [facility] [address] [place] [address], [place] Chloride [Moles/Vol] 103 mmol/L Normal 98-107 [facility] Comment on above: Order Comment: No: D o not add to previous draw Performed By: #### 0 0071, 97472, 55179, 59119 #### [facility] [address] [place] [address], [place] CO2 [Moles/Vol] 24 mmol/L Normal 21-31 [facility] Comment on above: Order Comment: No: D o not add to previous draw Performed By: #### 0 0071, 39674, 69788, 34963 #### [facility] [address] [place] [address], [place] Creatinine [Mass/Vol] 3.14 mg/dL High 0.60-1.20 [facility] Comment on above: Order Comment: No: D o not add to previous draw Performed By: #### 0 0071, 00705, 24079, 39141 #### [facility] [address] [place] [address], [place] GFR/1.73 sq M predicted among blacks MDRD (S/P/Bld) [Vol rate/Area] 17 ml/min/1.73sq m Abnormal >60 [facility] Comment on above: Order Comment: No: D o not add to previous draw Result Comment: Calc ulation may not be valid for patients over 70 years Performed By: #### 0 0071, 66419, 39269, 26835 #### [facility] [address] [place] [address], [place] GFR/1.73 sq M predicted among non-blacks MDRD (S/P/Bld) [Vol rate/Area] 14 ml/min/1.73sq m Abnormal >60 [facility] Comment on above: Order Comment: No: D o not add to previous draw Result Comment: Calc ulation may not be valid for patients over 70 years Performed By: #### 0 0071, 43487, 87330, 69321 #### [facility] [address] [place] [address], [facility] Glucose [Mass/Vol] 123 mg/dL High 70-100 [facility] Comment on above: Order Comment: No: D o not add to previous draw Performed By: #### 0 0071, 61556, 72578, 20011 #### [facility] [address] [place] [address], [facility] Potassium [Moles/Vol] 4.5 mmol/L Normal 3.5-5.1 [facility] Comment on above: Order Comment: No: D o not add to previous draw Performed By: #### 0 0071, 78023, 21860, 76294 #### [facility] [address] [place] [address], [facility] Sodium [Moles/Vol] 135 mmol/L Low 136-145 [facility] Comment on above: Order Comment: No: D o not add to previous draw Performed By: #### 0 0071, 83323, 81221, 87576 #### [facility] [address] [place] [address], [facility] Urea nitrogen [Mass/Vol] 60 mg/dL High 7-25 [facility] Comment on above: Order Comment: No: D o not add to previous draw Performed By: #### 0 0071, 48879, 09823, 33516 #### [facility] [address] [place] [address], [facility] CBC W/DIFFon 01-06-2019 ABS BASOPHILS 0.0 10*3/uL Normal 0.0-0.2 [facility] Comment on above: Order Comment: No: D o not add to previous draw Performed By: #### 0 0071, 31864, 72845, 51122 #### [facility] [address] [place] [address], [facility] ABS IMM GRANS 0.1 10*3/uL Normal 0.0-0.2 [facility] Comment on above: Order Comment: No: D o not add to previous draw Performed By: #### 0 0071, 63776, 78947, 44283 #### [facility] [address] [place] [id number], [facility] ABS NEUTROPHILS 6.9 10*3/uL Normal 1.6-7.6 [facility] Comment on above: Order Comment: No: D o not add to previous draw Performed By: #### 0 0071, 88899, 23328, 24227 #### [facility] [address] [facility] [place] [address], [facility] ACANTHOCYTES Slight Normal [facility] Comment on above: Order Comment: No: D o not add to previous draw Performed By: #### 0 0071, 66180, 01620, 06938 #### [facility] [address] [facility] [place] [address], [facility] ANISO Marked Normal [facility] Comment on above: Order Comment: No: D o not add to previous draw Performed By: #### 0 0071, 05595, 01114, 70521 #### [facility] [address] [place] [address], [facility] Basophils/100 WBC (Bld) 0.2 % Normal 0.0-1.0 [facility] Comment on above: Order Comment: No: D o not add to previous draw Performed By: #### 0 0071, 72101, 61243, 93471 #### [facility] [address] [place] [address], [facility] ELLIPTOCYTES Slight Normal [facility] Comment on above: Order Comment: No: D o not add to previous draw Performed By: #### 0 0071, 62615, 37499, 58716 #### [facility] [address] [place] [address], [facility] Eosinophils (Bld) [#/Vol] 0.2 10*3/uL Normal 0.0-0.5 [facility] Comment on above: Order Comment: No: D o not add to previous draw Performed By: #### 0 0071, 52454, 14781, 45547 #### [facility] [address] [place] [address], [facility] Eosinophils/100 WBC (Bld) 1.6 % Normal 0.0-6.0 [facility] Comment on above: Order Comment: No: D o not add to previous draw Performed By: #### 0 0071, 85886, 41336, 26179 #### [facility] [address] [place] [address], [facility] Erythrocyte distribution width (RBC) [Ratio] 27.6 % High 11.5-15.0 [facility] Comment on above: Order Comment: No: D o not add to previous draw Performed By: #### 0 0071, 08573, 60658, 43229 #### [facility] [address] [place] [address], [facility] Hematocrit (Bld) [Volume fraction] 27.2 % Low 36.0-45.0 [facility] Comment on above: Order Comment: No: D o not add to previous draw Performed By: #### 0 0071, 10339, 86191, 34379 #### [facility] [address] [place] [address], [facility] Hemoglobin (Bld) [Mass/Vol] 8.2 g/dL Low 12.0-15.0 [facility] Comment on above: Order Comment: No: D o not add to previous draw Performed By: #### 0 0071, 05446, 20841, 48421 #### [facility] [address] IMMATURE GRANS 0.5 % Normal 0.0-1.0 [facility] Comment on above: Order Comment: No: D o not add to previous draw Performed By: #### 0 0071, 20915, 69249, 57169 #### [facility] [address] [place] [address], [facility] Lymphocytes (Bld) [#/Vol] 1.2 10*3/uL Normal 1.2-4.0 [facility] Comment on above: Order Comment: No: D o not add to previous draw Performed By: #### 0 0071, 25676, 65939, 36303 #### [facility] [address] [place] [address], [facility] Lymphocytes/100 WBC (Bld) 12.5 % Low 20.0-45.0 [facility] Comment on above: Order Comment: No: D o not add to previous draw Performed By: #### 0 0071, 56734, 32938, 73592 #### [facility] [address] [place] [address], [facility] MCH (RBC) [Entitic mass] 29.5 pg Normal 27.0-33.0 [facility] Comment on above: Order Comment: No: D o not add to previous draw Performed By: #### 0 0071, 09685, 60308, 31093 #### [facility] [address] [place] [address], [facility] MCHC (RBC) [Mass/Vol] 30.1 g/dL Low 32.0-35.0 [facility] Comment on above: Order Comment: No: D o not add to previous draw Performed By: #### 0 0071, 14357, 51829, 59204 #### [facility] [address] [place] [address], [facility] MCV (RBC) [Entitic vol] 97.8 fL Normal 82.0-98.0 [facility] Comment on above: Order Comment: No: D o not add to previous draw Performed By: #### 0 0071, 18421, 71151, 58804 #### [facility] [address] [place] [address], [facility] Monocytes (Bld) [#/Vol] 1.4 10*3/uL High 0.1-1.0 [facility] Comment on above: Order Comment: No: D o not add to previous draw Performed By: #### 0 0071, 07394, 78723, 95964 #### [facility] [address] [place] [address], [facility] MONOS 14.5 % High 5.0-12.0 [facility] Comment on above: Order Comment: No: D o not add to previous draw Performed By: #### 0 0071, 90827, 72713, 35545 #### [facility] [address] [place] [address], [facility] Neutrophils/100 WBC (Bld) 70.7 % Normal 40.0-72.0 [facility] Comment on above: Order Comment: No: D o not add to previous draw Performed By: #### 0 0071, 32396, 91652, 03675 #### [facility] [address] [place] [address], [facility] Nucleated RBC/100 WBC (Bld) [Ratio] 0 % Normal 0-0 [facility] Comment on above: Order Comment: No: D o not add to previous draw Performed By: #### 0 0071, 02532, 13373, 01168 #### [facility] [address] [place] [address], [facility] OVALOCYTES Slight Normal [facility] Comment on above: Order Comment: No: D o not add to previous draw Performed By: #### 0 0071, 96110, 48494, 33776 #### [facility] [address] [place] [address], [place] PLAT CNT 236 10*3/uL Normal 150-400 [facility] Comment on above: Order Comment: No: D o not add to previous draw Performed By: #### 0 0071, 57384, 84266, 81597 #### [facility] [address] [place] [address], [facility] POIK Moderate Normal [facility] Comment on above: Order Comment: No: D o not add to previous draw Performed By: #### 0 0071, 89251, 27477, 19645 #### [facility] [address] [place] [address], [facility] POLY Slight Normal [facility] Comment on above: Order Comment: No: D o not add to previous draw Performed By: #### 0 0071, 29332, 42355, 72410 #### [facility] [address] [facility] [place] [address], [facility] RBC (Bld) [#/Vol] 2.78 10*6/uL Low 3.80-5.00 [facility] Comment on above: Order Comment: No: D o not add to previous draw Performed By: #### 0 0071, 87128, 94490, 23032 #### [facility] [address] [facility] [place] [address], [facility] SCHISTOCYTES Slight Normal [facility] Comment on above: Order Comment: No: D o not add to previous draw Performed By: #### 0 0071, 32176, 21142, 76887 #### [facility] [address] [facility] [place] [address], [facility] WBC (Bld) [#/Vol] 9.76 10*3/uL Normal 4.00-10.60 [facility] Comment on above: Order Comment: No: D o not add to previous draw Performed By: #### 0 0071, 27278, 28280, 85087 #### [facility] [address] CPKon 01-06-2019 CK [Catalytic activity/Vol] 26 U/L Low 30-223 [facility] Comment on above: Performed By: #### 0 0071, 40729, 65282, 85104 #### [facility] [address] [facility] [address] FERRITINon 01-06-2019 Ferritin [Mass/Vol] 288 ng/mL Normal 11-307 [facility] Comment on above: Performed By: #### 0 0071, 85285, 21622, 67549 #### [facility] [address] MAGNESIUM BLOODon 01-06-2019 Magnesium [Mass/Vol] 2.1 mg/dL Normal 1.9-2.7 [facility] Comment on above: Order Comment: No: D o not add to previous draw Performed By: #### 0 0071, 21189, 89646, 70341 #### [facility] [address] [facility] [address] PHOSPHORUS BLOODon 9 Phosphate [Mass/Vol] 3.9 mg/dL Normal 2.5-5.0 [facility] Comment on above: Order Comment: No: D o not add to previous draw Performed By: #### 0 0071, 30110, 69983, 28613 #### [facility] [address] [facility] [address] PROTHROMBIN TIMEon 9 INR Coag (PPP) [Relative time] 2.22 {INR} High 0.91-1.16 [facility] Comment on above: Order Comment: No: [...] CHEST 1995;108:[id number]-246S. Performed By: #### 0 0071, 97305, 68816, 96785 #### [facility] [address] PT Coag (PPP) [Time] 25.0 s High 12.3-14.8 [facility] Comment on above: Order Comment: No: D o not add to previous draw Result Comment: ALL RESULTS MUST BE INTERPRETED WITH RESPECT TO BLOOD DRAWING ARTIFACT OR DILUTION ERROR OF ANTICOAGULANT AT THE TIME OF SAMPLING. Performed By: #### 0 0071, 19505, 94143, 01966 #### [facility] [address] [place] [address], [facility] TIBC- INCLUDES IRONon 2018 FE SATURATION 25 % Normal 20-50 [facility] Comment on above: Performed By: #### 0 0071, 21960, 04283, 95295 #### [facility] [address] Iron [Mass/Vol] 87 ug/dL Normal 50-212 [facility] Comment on above: Performed By: #### 0 0071, 06131, 32536, 22135 #### [facility] [address] TIBC 345 mcg/dL Normal 250-450 [facility] Comment on above: Performed By: #### 0 0071, 36007, 07137, 36052 #### [facility] [address] [facility] [place] [address], [facility] UIBC 258 mcg/dL Normal 155-355 [facility] Comment on above: Performed By: #### 0 0071, 53442, 42076, 52293 #### [facility] [address] [place] [address], [facility] TRANSFERRINon 01-06-2019 Transferrin [Mass/Vol] 282 mg/dL Normal 203-362 [facility] Comment on above: Performed By: #### 0 0071, 46031, 32771, 08508 #### [facility] [address] [place] [address], [facility] ANAon 01-05-2019 Nuclear Ab IF (S) [Titer] <1:40 Normal <1:40,1:40 [facility] Comment on above: Order Comment: No: D o not add to previous draw Performed By: #### 0 0071, 01639, 98161, 25006 #### [facility] [address] [place] [address], [facility] BASIC METABOLIC PANELon 12-19 Calcium [Mass/Vol] 8.5 mg/dL Low 8.6-10.3 [facility] Comment on above: Order Comment: No: D o not add to previous draw Performed By: #### 5 0608 #### [facility] [address] [place] [address], [facility] Chloride [Moles/Vol] 103 mmol/L Normal 98-107 [facility] Comment on above: Order Comment: No: D o not add to previous draw Performed By: #### 5 0608 #### [facility] [address] [place] [address], [place] CO2 [Moles/Vol] 24 mmol/L Normal 21-31 [facility] Comment on above: Order Comment: No: D o not add to previous draw Performed By: #### 5 0608 #### [facility] [address] [place] [address], [facility] Creatinine [Mass/Vol] 2.90 mg/dL High 0.60-1.20 [facility] Comment on above: Order Comment: No: D o not add to previous draw Performed By: #### 5 0608 #### [facility] [address] [place] [address], [place] GFR/1.73 sq M predicted among blacks MDRD (S/P/Bld) [Vol rate/Area] 19 ml/min/1.73sq m Abnormal >60 [facility] Comment on above: Order Comment: No: D o not add to previous draw Result Comment: Calc ulation may not be valid for patients over 70 years Performed By: #### 5 0608 #### [facility] [address] [facility] [place] [address], [facility] GFR/1.73 sq M predicted among non-blacks MDRD (S/P/Bld) [Vol rate/Area] 16 ml/min/1.73sq m Abnormal >60 [facility] Comment on above: Order Comment: No: D o not add to previous draw Result Comment: Calc ulation may not be valid for patients over 70 years Performed By: #### 5 0608 #### [facility] [address] [place] [address], [facility] Glucose [Mass/Vol] 142 mg/dL High 70-100 [facility] Comment on above: Order Comment: No: D o not add to previous draw Performed By: #### 5 0608 #### [facility] [address] [place] [address], [place] Potassium [Moles/Vol] 4.6 mmol/L Normal 3.5-5.1 [facility] Comment on above: Order Comment: No: D o not add to previous draw Performed By: #### 5 0608 #### [facility] [address] [place] [address], [place] Sodium [Moles/Vol] 134 mmol/L Low 136-145 [facility] Comment on above: Order Comment: No: D o not add to previous draw Performed By: #### 5 0608 #### [facility] [address] Urea nitrogen [Mass/Vol] 53 mg/dL High 7-25 [facility] Comment on above: Order Comment: No: D o not add to previous draw Performed By: #### 5 0608 #### [facility] [address] BNP (B-TYPE NATRIURETIC PEPT LIVAN)on 01-05-2019 Natriuretic peptide B (Bld) [Mass/Vol] 616 pg/mL High 0-100 [facility] Comment on above: Order Comment: No: D o not add to previous draw Result Comment: Give n the appropriate clinical setting a BNP result of >100 pg/mL indicates congestive heart failure. Performed By: #### 5 0608 #### [facility] [address] CBC W/DIFFon 01-05-2019 ABS BASOPHILS 0.0 10*3/uL Normal 0.0-0.2 [facility] Comment on above: Performed By: #### 5 0608 #### [address] ABS IMM GRANS 0.1 10*3/uL Normal 0.0-0.2 [facility] Comment on above: Performed By: #### 5 0608 #### [facility] [address] ABS NEUTROPHILS 7.6 10*3/uL Normal 1.6-7.6 [facility] Comment on above: Performed By: #### 5 0608 #### [facility] [address] ACANTHOCYTES Slight Normal [facility] Comment on above: Performed By: #### 5 0608 #### [facility] [address] ANISO Marked Normal [facility] Comment on above: Performed By: #### 5 0608 #### [facility] [address] [facility] [place] [address], [facility] Basophils/100 WBC (Bld) 0.2 % Normal 0.0-1.0 [facility] Comment on above: Performed By: #### 5 0608 #### [facility] 3000 [facility]. [address] THERESA CELLS Slight Normal [facility] Comment on above: Performed By: #### 5 0608 #### [facility] [address] ELLIPTOCYTES Slight Normal [facility] Comment on above: Performed By: #### 5 0608 #### [facility] 3000 [facility]. [address] Eosinophils (Bld) [#/Vol] 0.0 10*3/uL Normal 0.0-0.5 [facility] Comment on above: Performed By: #### 5 0608 #### [facility] 3000 [place] [address], [facility] Eosinophils/100 WBC (Bld) 0.2 % Normal 0.0-6.0 [facility] Comment on above: Performed By: #### 5 0608 #### [facility] [address] Erythrocyte distribution width (RBC) [Ratio] 27.2 % High 11.5-15.0 [facility] Comment on above: Result Comment: Resu lt changed by [email or web address] on 01/05/2019 02:09. The previous value was ----. Performed By: #### 5 0608 #### [facility] [address] Hematocrit (Bld) [Volume fraction] 27.5 % Low 36.0-45.0 [facility] Comment on above: Result Comment: Resu lt changed by [email or web address] on 01/05/2019 02:09. The previous value was 27.7. Performed By: #### 5 0608 #### [facility] [address] [place] [address], [facility] Hemoglobin (Bld) [Mass/Vol] 8.2 g/dL Low 12.0-15.0 [facility] Comment on above: Performed By: #### 5 0608 #### [facility] [address] [place] [address], [facility] IMMATURE GRANS 0.6 % Normal 0.0-1.0 [facility] Comment on above: Performed By: #### 5 0608 #### [facility] [address] Lymphocytes (Bld) [#/Vol] 0.9 10*3/uL Low 1.2-4.0 [facility] Comment on above: Performed By: #### 5 0608 #### [facility] [address] [place] [address], [facility] Lymphocytes/100 WBC (Bld) 9.0 % Low 20.0-45.0 [facility] Comment on above: Performed By: #### 5 0608 #### [facility] [address] [place] [address], [facility] MCH (RBC) [Entitic mass] 29.3 pg Normal 27.0-33.0 [facility] Comment on above: Result Comment: Resu lt changed by [email or web address] on 01/05/2019 02:09. The previous value was 29.1. Performed By: #### 5 0608 #### [facility] [address] [place] [address], [facility] MCHC (RBC) [Mass/Vol] 29.8 g/dL Low 32.0-35.0 [facility] Comment on above: Result Comment: Resu lt changed by [email or web address] on 01/05/2019 02:09. The previous value was 29.6. Performed By: #### 5 0608 #### [facility] [address] [place] [address], [facility] MCV (RBC) [Entitic vol] 98.2 fL High 82.0-98.0 [facility] Comment on above: Performed By: #### 5 0608 #### [facility] [address] [place] [address], [facility] Monocytes (Bld) [#/Vol] 1.1 10*3/uL High 0.1-1.0 [facility] Comment on above: Performed By: #### 5 0608 #### [facility] [address] MONOS 11.8 % Normal 5.0-12.0 [facility] Comment on above: Performed By: #### 5 0608 #### [facility] [address] Neutrophils/100 WBC (Bld) 78.2 % High 40.0-72.0 [facility] Comment on above: Performed By: #### 5 0608 #### [facility] [address] [place] [address], [facility] Nucleated RBC/100 WBC (Bld) [Ratio] 0 % Normal 0-0 [facility] Comment on above: Performed By: #### 5 0608 #### [facility] [address] OTHER 1 Checked by Los navarro M.D. Normal [facility] Comment on above: Result Comment: Resu lt changed by [email or web address] on 01/05/2019 09:19. The previous value was Preliminary report; verified report to follow. Performed By: #### 5 0608 #### [facility] [address] [place] [address], [facility] OVALOCYTES Slight Normal [facility] Comment on above: Performed By: #### 5 0608 #### [facility] [address] [place] [address], [facility] PLAT CNT 263 10*3/uL Normal 150-400 [facility] Comment on above: Performed By: #### 5 0608 #### [facility] [address] [place] [address], [facility] POIK Moderate Normal [facility] Comment on above: Performed By: #### 5 0608 #### [facility] [address] [place] [address], [facility] RBC (Bld) [#/Vol] 2.80 10*6/uL Low 3.80-5.00 [facility] Comment on above: Result Comment: Resu lt changed by [email or web address] on 01/05/2019 02:09. The previous value was 2.82. Performed By: #### 5 0608 #### [facility] [address] [place] [address], [facility] SCHISTOCYTES Slight Normal [facility] Comment on above: Performed By: #### 5 0608 #### [facility] 3000 [facility] [place] [address], [facility] WBC (Bld) [#/Vol] 9.70 10*3/uL Normal 4.00-10.60 [facility] Comment on above: Result Comment: Resu lt changed by [email or web address] on 01/05/2019 02:09. The previous value was 9.82. Performed By: #### 5 0608 #### [facility] [address] [place] [address], [facility] COMPLEMENT 3on 01-05-2019 COMPLEMENT 3 89 mg/dL Normal 79-152 [facility] Comment on above: Order Comment: No: D o not add to previous draw Performed By: #### 0 0071, 08342, 21502, 98014 #### [facility] [address] [place] [address], [facility] COMPLEMENT 4on 01-05-2019 COMPLEMENT 4 16 mg/dL Normal 16-38 [facility] Comment on above: Order Comment: No: D o not add to previous draw Performed By: #### 0 0071, 02266, 80217, 84546 #### [address] [place] [address], [facility] CT CHEST WO CONTRASTon 01-05 CT CHEST WO CONTRAST [facility] Department of Radiology [address] [place] [address] [phone] == Patient Name: JENIFER HERNANDEZ : 1940 Sex: F Age: Race: NA Pt. Location: [id number] Patient Status: I Ordered Date: 01/05/2019 8:15:00 [...] anasarca. Electronically signed by:Christina Jules. Transcribed by: [email or web address], User Resident: Electronically Signed by: CHRISTINA JULES @ 01/06/2019 11:13 AM Normal [facility] Comment on above: Order Comment: No: D o not add to previous draw IMMUNOFIXATION BLOODon 01-05 IgA [Mass/Vol] 233 mg/dL Normal 60-413 [facility] Comment on above: Order Comment: No: D o not add to previous draw Performed By: #### 0 0071, 20928, 37405, 44017 #### [facility] [address] IgG [Mass/Vol] 1240 mg/dL Normal 591-1540 [facility] Comment on above: Order Comment: No: D o not add to previous draw Performed By: #### 0 0071, 08105, 34185, 76165 #### [facility] [address] [place] [address], [facility] IgM [Mass/Vol] 52 mg/dL Low 54-285 [facility] Comment on above: Order Comment: No: D o not add to previous draw Performed By: #### 0 0071, 63143, 06561, 07997 #### [facility] [address] [place] [address], [facility] IMMUNOFIXATION Serum Immunofixation reveals: A NORMAL PATTERN. SEE SEPARATE REPORT Normal [facility] Comment on above: Order Comment: No: D o not add to previous draw Performed By: #### 0 0071, 79231, 70832, 97509 #### [facility] [address] [place] [address], [facility] KAPPA LIGHT CHN 7.65 mg/dL High 0.33-1.94 [facility] Comment on above: Order Comment: No: D o not add to previous draw Result Comment: KF R epeated for verification. Performed By: #### 0 0071, 71625, 99353, 66322 #### [facility] [address] [place] [id number], [facility] KAPPA/LAMDBA RATIO 2.37 RATIO High 0.26-1.65 [facility] Comment on above: Order Comment: No: D o not add to previous draw Result Comment: For patients with renal impairment, use a kappa/lambda ratio of 0.37-3.10 Performed By: #### 0 0071, 92637, 73146, 04093 #### [facility] [address] [place] [address], [place] LAMBDA LIGHT CHN 3.23 mg/dL High 0.57-2.63 [facility] Comment on above: Order Comment: No: D o not add to previous draw Result Comment: LF R epeated for verification. Performed By: #### 0 0071, 96540, 94977, 16477 #### [facility] [address] [place] [address], [place] OSMOLALITY URINEon 9 Osmolality [Osmolality] 325 mOsm/kg Normal 50-1400 [facility] Comment on above: Order Comment: No: D o not add to previous draw Performed By: #### 0 0071, 78180, 43149, 91349 #### [facility] [address] [place] [address], [place] PROTEIN ELECT Joseph 01-05-2019 Protein [Mass/Vol] 5.9 g/dL Low 6.0-8.3 [facility] Comment on above: Order Comment: No: D o not add to previous draw Performed By: #### 0 0071, 76496, 51995, 36768 #### [facility] [address] [place] [address], [place] Protein [Mass/Vol] Normal [facility] Comment on above: Order Comment: No: D o not add to previous draw Result Comment: Hypo albuminemia and greatly elevated alpha 2 fraction suggests nephrosis. Performed By: #### 0 0071, 06509, 05621, 32738 #### [facility] [address] [place] [address], [place] PROTEIN ELECT URon 9 Protein [Mass/Vol] No abnormal bands seen. Normal [facility] Comment on above: Order Comment: No: D o not add to previous draw Performed By: #### 0 0071, 46903, 57437, 73596 #### [facility] [address] [place] [address], [place] Protein [Mass/Vol] 379.0 mg/dL Normal [facility] Comment on above: Order Comment: No: D o not add to previous draw Result Comment: Ther e are no established reference values for random urine specimens Performed By: #### 0 0071, 06510, 83472, 42270 #### [facility] [address] [place] [address], [place] SODIUM URINE RANDOMon 2018 Sodium (U) [Moles/Vol] 14 mmol/L Normal [facility] Comment on above: Order Comment: No: D o not add to previous draw Result Comment: Ther e are no established reference values for random urine specimens Performed By: #### 0 0071, 15124, 16495, 10690 #### [facility] [address] [place] [address], [place] URINALYSIS REFLEXon 01-06-20 19 Appearance (U) CLOUDY Abnormal CLEAR [facility] Comment on above: Order Comment: No: D o not add to previous draw Performed By: #### 0 0071, 76006, 15078, 56495 #### [facility] [address] [place] [address], [facility] Bilirubin [Mass/Vol] Negative Normal NEGATIVE [facility] Comment on above: Order Comment: No: D o not add to previous draw Performed By: #### 0 0071, 62342, 05148, 46857 #### [facility] [address] [place] [address], [place] BLOOD Negative Normal NEGATIVE [facility] Comment on above: Order Comment: No: D o not add to previous draw Performed By: #### 0 0071, 49586, 07218, 47862 #### [facility] [address] [place] [address], [place] CALCIUM OXALATE CRYSTAL OCC Abnormal NONE SEEN [facility] Comment on above: Order Comment: No: D o not add to previous draw Performed By: #### 0 0071, 17477, 65538, 08457 #### [facility] [address] [place] [address], [place] Color (U) FARHEEN Abnormal YELLOW [facility] Comment on above: Order Comment: No: D o not add to previous draw Performed By: #### 0 0071, 45985, 76287, 04568 #### [facility] [address] [place] [address], [facility] EPIS MANY Abnormal FEW,OCC,NONE SEEN [facility] Comment on above: Order Comment: No: D o not add to previous draw Performed By: #### 0 0071, 16301, 76811, 13026 #### [facility] [address] [place] [address], [facility] Glucose [Mass/Vol] Negative Normal NEGATIVE [facility] Comment on above: Order Comment: No: D o not add to previous draw Performed By: #### 0 0071, 17472, 24168, 51130 #### [facility] [address] [place] [address], [facility] GRANULAR CASTS 6-8 Abnormal NONE SEEN [facility] Comment on above: Order Comment: No: D o not add to previous draw Performed By: #### 0 0071, 34188, 54299, 96870 #### [facility] [address] [place] [address], [facility] HYALINE CASTS 4-6 Abnormal NONE SEEN [facility] Comment on above: Order Comment: No: D o not add to previous draw Performed By: #### 0 0071, 17460, 36111, 13819 #### [facility] [address] [place] [address], [facility] KETONE Negative Normal NEGATIVE [facility] Comment on above: Order Comment: No: D o not add to previous draw Performed By: #### 0 0071, 96491, 63927, 56727 #### [facility] [address] [place] [address], [facility] LEUK ARASH LARGE Abnormal NEGATIVE [facility] Comment on above: Order Comment: No: D o not add to previous draw Performed By: #### 0 0071, 95681, 61887, 28729 #### [facility] [address] [place] [address], [facility] MUCUS THREADS FEW Abnormal NONE SEEN [facility] Comment on above: Order Comment: No: D o not add to previous draw Performed By: #### 0 0071, 89100, 49227, 28297 #### [facility] [address] [place] [address], [facility] Nitrite Ql (U) Negative Normal NEGATIVE [facility] Comment on above: Order Comment: No: D o not add to previous draw Performed By: #### 0 0071, 20146, 90753, 25969 #### [facility] [address] [place] [address], [facility] pH (Bld) 5.0 Normal 5.0-8.0 [facility] Comment on above: Order Comment: No: D o not add to previous draw Performed By: #### 0 0071, 37184, 98034, 12089 #### [facility] [address] [place] [address], [facility] Protein (U) [Mass/Vol] 100 mg/dL Abnormal NEGATIVE [facility] Comment on above: Order Comment: No: D o not add to previous draw Performed By: #### 0 0071, 42694, 04802, 05714 #### [facility] [address] [place] [address], [facility] RBC (U) [#/Vol] 0-2 Abnormal NONE SEEN [facility] Comment on above: Order Comment: No: D o not add to previous draw Performed By: #### 0 0071, 40036, 76016, 01041 #### [facility] [address] [facility] [place] [address], [facility] SPEC GRAV 1.015 Normal 1.015-1.020 [facility] Comment on above: Order Comment: No: D o not add to previous draw Performed By: #### 0 0071, 64196, 50399, 78217 #### [facility] [address] [place] [address], [facility] UA COMMENT 2 2-4 Waxy casts Normal [facility] Comment on above: Order Comment: No: D o not add to previous draw Performed By: #### 0 0071, 80785, 52184, 81984 #### [facility] 3000 [facility] [place] [address], [facility] WBC UA 51-100 Abnormal NONE SEEN [facility] Comment on above: Order Comment: No: D o not add to previous draw Performed By: #### 0 0071, 89980, 57207, 57354 #### [facility] 3000 [facility] [place] [address], [facility] URINE CONCEPCION STAIN/EOSon EOSINOPHIL SMEAR NONE SEEN Normal NSN [facility] Comment on above: Order Comment: No: D o not add to previous draw [place] Normal [facility] Comment on above: Order Comment: No: D o not add to previous draw Result Comment: Test Performed by [employer] [address] [place], [place] [id number] - Released 01/06/2019 17:38 US RENALon 01-05-2019 US RENAL [facility] Department of Radiology [address] [place] [phone] == Patient Name: JENIFER HERNANDEZ : 1940 Sex: F Age: Race: NA Pt. Location: [id number] Patient Status: I Ordered Date: 01/05/2019 2:15:00 [...] effusion. Electronically signed by:Los Lutz. Transcribed by: [email or web address], User Resident: Electronically Signed by: LOS LUTZ @ 01/05/2019 03:14 PM Normal [facility] Comment on above: Order Comment: No: D o not add to previous draw BASIC METABOLIC PANELon 11-0 Calcium [Mass/Vol] 9.2 mg/dL Normal 8.6-10.3 [facility] Comment on above: Order Comment: No: D o not add to previous draw Performed By: #### 5 0608 #### [facility] [address] [place] [address], [place] Chloride [Moles/Vol] 106 mmol/L Normal 98-107 [facility] Comment on above: Order Comment: No: D o not add to previous draw Performed By: #### 5 0608 #### [facility] [address] [place] [address], [place] CO2 [Moles/Vol] 31 mmol/L Normal 21-31 [facility] Comment on above: Order Comment: No: D o not add to previous draw Performed By: #### 5 0608 #### [facility] [address] [place] [address], [facility] Creatinine [Mass/Vol] 1.01 mg/dL Normal 0.60-1.20 [facility] Comment on above: Order Comment: No: D o not add to previous draw Performed By: #### 5 0608 #### [facility] [address] [place] [address], [facility] GFR/1.73 sq M predicted among blacks MDRD (S/P/Bld) [Vol rate/Area] mL/min/{1.73_m2} Normal >60 [facility] Comment on above: Order Comment: No: D o not add to previous draw Result Comment: Calc ulation may not be valid for patients over 70 years Performed By: #### 5 0608 #### [facility] [address] [place] [address], [facility] GFR/1.73 sq M predicted among non-blacks MDRD (S/P/Bld) [Vol rate/Area] 53 ml/min/1.73sq m Abnormal >60 [facility] Comment on above: Order Comment: No: D o not add to previous draw Result Comment: Calc ulation may not be valid for patients over 70 years Performed By: #### 5 0608 #### [facility] [address] [place] [address], [place] Glucose [Mass/Vol] 93 mg/dL Normal 70-100 [facility] Comment on above: Order Comment: No: D o not add to previous draw Performed By: #### 5 0608 #### [facility] [address] [place] [address], [place] Potassium [Moles/Vol] 3.2 mmol/L Low 3.5-5.1 [facility] Comment on above: Order Comment: No: D o not add to previous draw Performed By: #### 5 0608 #### [facility] [address] Sodium [Moles/Vol] 145 mmol/L Normal 136-145 [facility] Comment on above: Order Comment: No: D o not add to previous draw Performed By: #### 5 0608 #### [facility] [address] Urea nitrogen [Mass/Vol] 31 mg/dL High 7-25 [facility] Comment on above: Order Comment: No: D o not add to previous draw Performed By: #### 5 0608 #### [facility] 3000 [facility]. [address] CBC COMPLETE BLOOD COUNTon 02-23-2018 Erythrocyte distribution width (RBC) [Ratio] 17.2 % High 11.5-15.0 [facility] Comment on above: Order Comment: No: D o not add to previous draw Performed By: #### 5 0608 #### [facility] [address] [facility] [address] Hematocrit (Bld) [Volume fraction] 27.2 % Low 36.0-45.0 [facility] Comment on above: Order Comment: No: D o not add to previous draw Performed By: #### 5 0608 #### [facility] [address] [place] [address], [facility] Hemoglobin (Bld) [Mass/Vol] 7.9 g/dL Low 12.0-15.0 [facility] Comment on above: Order Comment: No: D o not add to previous draw Performed By: #### 5 0608 #### [facility] [address] [place] [address], [facility] MCH (RBC) [Entitic mass] 27.1 pg Normal 27.0-33.0 [facility] Comment on above: Order Comment: No: D o not add to previous draw Performed By: #### 5 0608 #### [facility] [address] [place] [address], [facility] MCHC (RBC) [Mass/Vol] 29.0 g/dL Low 32.0-35.0 [facility] Comment on above: Order Comment: No: D o not add to previous draw Performed By: #### 5 0608 #### [facility] [address] [place] [id number], [facility] MCV (RBC) [Entitic vol] 93.2 fL Normal 82.0-98.0 [facility] Comment on above: Order Comment: No: D o not add to previous draw Performed By: #### 5 0608 #### [facility] [address] [facility] [place] [address], [facility] Nucleated RBC/100 WBC (Bld) [Ratio] 0 % Normal 0-0 [facility] Comment on above: Order Comment: No: D o not add to previous draw Performed By: #### 5 0608 #### [facility] [address] [facility] [place] [place] [address], [facility] PLAT CNT 238 10*3/uL Normal 150-400 [facility] Comment on above: Order Comment: No: D o not add to previous draw Performed By: #### 5 0608 #### [facility] [address] [facility] [place] [address], [facility] RBC (Bld) [#/Vol] 2.92 10*6/uL Low 3.80-5.00 [facility] Comment on above: Order Comment: No: D o not add to previous draw Performed By: #### 5 0608 #### [facility] [address] [place] [address], [facility] WBC (Bld) [#/Vol] 7.05 10*3/uL Normal 4.00-10.60 [facility] Comment on above: Order Comment: No: D o not add to previous draw Performed By: #### 5 0608 #### [facility] [address] [place] [address], [facility] BASIC METABOLIC PANELon 11-0 Calcium [Mass/Vol] 9.5 mg/dL Normal 8.6-10.3 [facility] Comment on above: Order Comment: No: D o not add to previous draw Performed By: #### 5 0608 #### [facility] [address] [place] [address], [place] Chloride [Moles/Vol] 103 mmol/L Normal 98-107 [facility] Comment on above: Order Comment: No: D o not add to previous draw Performed By: #### 5 0608 #### [facility] [address] [place] [address], [place] CO2 [Moles/Vol] 34 mmol/L High 21-31 [facility] Comment on above: Order Comment: No: D o not add to previous draw Performed By: #### 5 0608 #### [facility] [address] [place] [address], [place] Creatinine [Mass/Vol] 1.09 mg/dL Normal 0.60-1.20 [facility] Comment on above: Order Comment: No: D o not add to previous draw Performed By: #### 5 0608 #### [facility] [address] [place] [address], [place] GFR/1.73 sq M predicted among blacks MDRD (S/P/Bld) [Vol rate/Area] 59 ml/min/1.73sq m Abnormal >60 [facility] Comment on above: Order Comment: No: D o not add to previous draw Result Comment: Calc ulation may not be valid for patients over 70 years Performed By: #### 5 0608 #### [facility] [address] [place] [address], [place] GFR/1.73 sq M predicted among non-blacks MDRD (S/P/Bld) [Vol rate/Area] 48 ml/min/1.73sq m Abnormal >60 [facility] Comment on above: Order Comment: No: D o not add to previous draw Result Comment: Calc ulation may not be valid for patients over 70 years Performed By: #### 5 0608 #### [facility] [address] [place] [address], [place] Glucose [Mass/Vol] 149 mg/dL High 70-100 [facility] Comment on above: Order Comment: No: D o not add to previous draw Performed By: #### 5 0608 #### [facility] [address] [place] [address], [place] Potassium [Moles/Vol] 3.9 mmol/L Normal 3.5-5.1 [facility] Comment on above: Order Comment: No: D o not add to previous draw Performed By: #### 5 0608 #### [facility] [address] [place] [address], [place] Sodium [Moles/Vol] 144 mmol/L Normal 136-145 [facility] Comment on above: Order Comment: No: D o not add to previous draw Performed By: #### 5 0608 #### [facility] [address] [place] [address], [place] Urea nitrogen [Mass/Vol] 29 mg/dL High 7-25 [facility] Comment on above: Order Comment: No: D o not add to previous draw Performed By: #### 5 0608 #### [facility] [address] [place] [address], [place] HEMATOCRITon 12-23-2018 Hematocrit (Bld) [Volume fraction] 28.3 % Low 36.0-45.0 [facility] Comment on above: Order Comment: No: D o not add to previous draw Performed By: #### 9 2089, [id number] ####[facility] [place] [address], [place] HEMOGLOBINon 12-23-2018 Hemoglobin (Bld) [Mass/Vol] 8.2 g/dL Low 12.0-15.0 [facility] Comment on above: Order Comment: No: D o not add to previous draw Performed By: #### 9 2089, [id number] ####[facility] [place] [address], [facility] MAGNESIUM BLOODon 12-23-2018 Magnesium [Mass/Vol] 1.8 mg/dL Low 1.9-2.7 [facility] Comment on above: Order Comment: No: D o not add to previous draw Performed By: #### 1 0070, [id number] ####[facility] [facility] [address], [facility] ANAon 12-22-2018 Nuclear Ab IF (S) [Titer] <1:40 Normal <1:40,1:40 [facility] Comment on above: Order Comment: No: D o not add to previous draw Performed By: #### 5 0608 #### [facility] [address] [place] [address], [facility] BASIC METABOLIC PANELon Calcium [Mass/Vol] 9.2 mg/dL Normal 8.6-10.3 [facility] Comment on above: Order Comment: No: D o not add to previous draw Performed By: #### 0 0071 ####[facility] [place] [address], [facility] Chloride [Moles/Vol] 103 mmol/L Normal 98-107 [facility] Comment on above: Order Comment: No: D o not add to previous draw Performed By: #### 0 0071 ####[facility] [place] [address], [facility] CO2 [Moles/Vol] 30 mmol/L Normal 21-31 [facility] Comment on above: Order Comment: No: D o not add to previous draw Performed By: #### 0 0071 ####[facility] [place] [address], [facility] Creatinine [Mass/Vol] 1.05 mg/dL Normal 0.60-1.20 [facility] Comment on above: Order Comment: No: D o not add to previous draw Performed By: #### 0 0071 ####[facility] [facility] [place] [address], [facility] GFR/1.73 sq M predicted among blacks MDRD (S/P/Bld) [Vol rate/Area] mL/min/{1.73_m2} Normal >60 [facility] Comment on above: Order Comment: No: D o not add to previous draw Result Comment: Calc ulation may not be valid for patients over 70 years Performed By: #### 0 0071 ####[facility] [facility] [place] [address], [facility] GFR/1.73 sq M predicted among non-blacks MDRD (S/P/Bld) [Vol rate/Area] 50 ml/min/1.73sq m Abnormal >60 [facility] Comment on above: Order Comment: No: D o not add to previous draw Result Comment: Calc ulation may not be valid for patients over 70 years Performed By: #### 0 0071 ####[facility] [facility] [place] [address], [facility] Glucose [Mass/Vol] 116 mg/dL High 70-100 [facility] Comment on above: Order Comment: No: D o not add to previous draw Performed By: #### 0 0071 ####[facility] [facility] [place] [address], [facility] Potassium [Moles/Vol] 3.7 mmol/L Normal 3.5-5.1 [facility] Comment on above: Order Comment: No: D o not add to previous draw Performed By: #### 0 0071 ####[facility] [facility] [place] [address], [place] Sodium [Moles/Vol] 142 mmol/L Normal 136-145 [facility] Comment on above: Order Comment: No: D o not add to previous draw Performed By: #### 0 0071 ####[facility] [place] [address], [facility] Urea nitrogen [Mass/Vol] 28 mg/dL High 7-25 [facility] Comment on above: Order Comment: No: D o not add to previous draw Performed By: #### 0 0071 ####[facility] [place] [address], [facility] COMPLEMENT 3on 12-22-2018 COMPLEMENT 3 123 mg/dL Normal 79-152 [facility] Comment on above: Order Comment: Yes: Add to Previous draw if able Performed By: #### 1 0238, [id number] ####[facility] [place] [address], [facility] COMPLEMENT 4on 12-22-2018 COMPLEMENT 4 18 mg/dL Normal 16-38 [facility] Comment on above: Order Comment: Yes: Add to Previous draw if able Performed By: #### 1 0238, [id number] ####[facility] [place] [address], [facility] HEMOGLOBINon 12-22-2018 Hemoglobin (Bld) [Mass/Vol] 7.8 g/dL Low 12.0-15.0 [facility] Comment on above: Order Comment: No: D o not add to previous draw Performed By: #### 9 2089 ####[facility] [place] [address], [facility] PROTEIN ELECT Joseph 12-22-2018 Protein [Mass/Vol] 6.2 g/dL Normal 6.0-8.3 [facility] Comment on above: Order Comment: Yes: Add to Previous draw if able Performed By: #### 4 1661 ####[facility] [place] [address], [facility] Protein [Mass/Vol] Normal [facility] Comment on above: Order Comment: Yes: Add to Previous draw if able Result Comment: Hypo albuminemia is seen. This may be dilutional (from I.V. fluids) or nutritional in origin. Performed By: #### 4 1661 ####[facility] [place] [address], [facility] BASIC METABOLIC PANELon 11-0 Calcium [Mass/Vol] 9.1 mg/dL Normal 8.6-10.3 [facility] Comment on above: Order Comment: No: D o not add to previous draw Performed By: #### 1 0, 70065 ####[facility] [place] [address], [facility] Chloride [Moles/Vol] 104 mmol/L Normal 98-107 [facility] Comment on above: Order Comment: No: D o not add to previous draw Performed By: #### 1 69, 57042 ####[facility] [place] [address], [facility] CO2 [Moles/Vol] 30 mmol/L Normal 21-31 [facility] Comment on above: Order Comment: No: D o not add to previous draw Performed By: #### 1 0, 69382 ####[facility] [place] [address], [facility] Creatinine [Mass/Vol] 1.10 mg/dL Normal 0.60-1.20 [facility] Comment on above: Order Comment: No: D o not add to previous draw Performed By: #### 1 69, 73735 ####[facility] [place] [address], [facility] GFR/1.73 sq M predicted among blacks MDRD (S/P/Bld) [Vol rate/Area] 58 ml/min/1.73sq m Abnormal >60 [facility] Comment on above: Order Comment: No: D o not add to previous draw Result Comment: Calc ulation may not be valid for patients over 70 years Performed By: #### 1 69, 75203 ####[facility] [place] [address], [facility] GFR/1.73 sq M predicted among non-blacks MDRD (S/P/Bld) [Vol rate/Area] 47 ml/min/1.73sq m Abnormal >60 [facility] Comment on above: Order Comment: No: D o not add to previous draw Result Comment: Calc ulation may not be valid for patients over 70 years Performed By: #### 1 69, 55825 ####[facility] [place] [address], [facility] Glucose [Mass/Vol] 88 mg/dL Normal 70-100 [facility] Comment on above: Order Comment: No: D o not add to previous draw Performed By: #### 1 69, 57844 ####[facility] [place] [address], [facility] Potassium [Moles/Vol] 3.4 mmol/L Low 3.5-5.1 [facility] Comment on above: Order Comment: No: D o not add to previous draw Performed By: #### 1 69, 67751 ####[facility] [place] [address], [place] Sodium [Moles/Vol] 142 mmol/L Normal 136-145 [facility] Comment on above: Order Comment: No: D o not add to previous draw Performed By: #### 1 69, 53189 ####[facility] [place] [address], [place] Urea nitrogen [Mass/Vol] 33 mg/dL High 7-25 [facility] Comment on above: Order Comment: No: D o not add to previous draw Performed By: #### 1 69, 81611 ####[facility] [place] [address], [place] HEMOGLOBINon 12-21-2018 Hemoglobin (Bld) [Mass/Vol] 7.7 g/dL Low 12.0-15.0 [facility] Comment on above: Order Comment: No: D o not add to previous draw Performed By: #### 0 0071 #### [facility] [address] [place] [address], [facility] MAGNESIUM BLOODon 12-21-2018 Magnesium [Mass/Vol] 1.8 mg/dL Low 1.9-2.7 [facility] Comment on above: Order Comment: No: D o not add to previous draw Performed By: #### 1 0070, [id number] ####[facility] [place] [address], [facility] BASIC METABOLIC PANELon Calcium [Mass/Vol] 9.3 mg/dL Normal 8.6-10.3 [facility] Comment on above: Order Comment: No: D o not add to previous draw Performed By: #### 0 0071 #### [facility] [address] [place] [address], [place] Chloride [Moles/Vol] 102 mmol/L Normal 98-107 [facility] Comment on above: Order Comment: No: D o not add to previous draw Performed By: #### 0 0071 #### [facility] [address] [place] [address], [place] CO2 [Moles/Vol] 32 mmol/L High 21-31 [facility] Comment on above: Order Comment: No: D o not add to previous draw Performed By: #### 0 0071 #### [facility] [address] [place] [address], [place] Creatinine [Mass/Vol] 1.10 mg/dL Normal 0.60-1.20 [facility] Comment on above: Order Comment: No: D o not add to previous draw Performed By: #### 0 0071 #### [facility] [address] [place] [address], [place] GFR/1.73 sq M predicted among blacks MDRD (S/P/Bld) [Vol rate/Area] 58 ml/min/1.73sq m Abnormal >60 [facility] Comment on above: Order Comment: No: D o not add to previous draw Result Comment: Calc ulation may not be valid for patients over 70 years Performed By: #### 0 0071 #### [facility] [address] [place] [address], [place] GFR/1.73 sq M predicted among non-blacks MDRD (S/P/Bld) [Vol rate/Area] 47 ml/min/1.73sq m Abnormal >60 [facility] Comment on above: Order Comment: No: D o not add to previous draw Result Comment: Calc ulation may not be valid for patients over 70 years Performed By: #### 0 0071 #### [facility] [address] [place] [address], [place] Glucose [Mass/Vol] 120 mg/dL High 70-100 [facility] Comment on above: Order Comment: No: D o not add to previous draw Performed By: #### 0 0071 #### [facility] [address] [place] [address], [place] Potassium [Moles/Vol] 3.3 mmol/L Low 3.5-5.1 [facility] Comment on above: Order Comment: No: D o not add to previous draw Performed By: #### 0 0071 #### [facility] [address] [place] [address], [place] Sodium [Moles/Vol] 142 mmol/L Normal 136-145 [facility] Comment on above: Order Comment: No: D o not add to previous draw Performed By: #### 0 0071 #### [facility] [address] [place] [address], [place] Urea nitrogen [Mass/Vol] 36 mg/dL High 7-25 [facility] Comment on above: Order Comment: No: D o not add to previous draw Performed By: #### 0 0071 #### [facility] [address] CBC COMPLETE BLOOD COUNTon 02-19-2018 Erythrocyte distribution width (RBC) [Ratio] 15.8 % High 11.5-15.0 [facility] Comment on above: Order Comment: No: D o not add to previous draw Performed By: #### 0 0071 #### [facility] [address] [facility] [address] Hematocrit (Bld) [Volume fraction] 25.4 % Low 36.0-45.0 [facility] Comment on above: Order Comment: No: D o not add to previous draw Performed By: #### 0 0071 #### [facility] [address] [facility] [address] Hemoglobin (Bld) [Mass/Vol] 7.8 g/dL Low 12.0-15.0 [facility] Comment on above: Order Comment: No: D o not add to previous draw Performed By: #### 0 0071 #### [facility] [address] [facility] [place] [address], [facility] MCH (RBC) [Entitic mass] 27.1 pg Normal 27.0-33.0 [facility] Comment on above: Order Comment: No: D o not add to previous draw Performed By: #### 0 0071 #### [facility] [address] [facility] [place] [address], [facility] MCHC (RBC) [Mass/Vol] 30.7 g/dL Low 32.0-35.0 [facility] Comment on above: Order Comment: No: D o not add to previous draw Performed By: #### 0 0071 #### [facility] [address] [place] [address], [facility] MCV (RBC) [Entitic vol] 88.2 fL Normal 82.0-98.0 [facility] Comment on above: Order Comment: No: D o not add to previous draw Performed By: #### 0 0071 #### [facility] [address] [place] [address], [facility] Nucleated RBC/100 WBC (Bld) [Ratio] 0 % Normal 0-0 [facility] Comment on above: Order Comment: No: D o not add to previous draw Performed By: #### 0 0071 #### [facility] [address] [place] [address], [facility] PLAT CNT 227 10*3/uL Normal 150-400 [facility] Comment on above: Order Comment: No: D o not add to previous draw Performed By: #### 0 0071 #### [facility] [address] [place] [address], [facility] RBC (Bld) [#/Vol] 2.88 10*6/uL Low 3.80-5.00 [facility] Comment on above: Order Comment: No: D o not add to previous draw Performed By: #### 0 0071 #### [facility] [address] [facility] [place] [address], [facility] WBC (Bld) [#/Vol] 8.61 10*3/uL Normal 4.00-10.60 [facility] Comment on above: Order Comment: No: D o not add to previous draw Performed By: #### 0 0071 #### [facility] [address] MAGNESIUM BLOODon 12-20-2018 Magnesium [Mass/Vol] 1.9 mg/dL Normal 1.9-2.7 [facility] Comment on above: Order Comment: No: D o not add to previous draw Performed By: #### 0 0071 #### [facility] [address] [facility] BASIC METABOLIC PANELon Calcium [Mass/Vol] 9.2 mg/dL Normal 8.6-10.3 [facility] Comment on above: Order Comment: No: D o not add to previous draw Performed By: #### 5 0608 #### [facility] [address] [place] [address], [place] Chloride [Moles/Vol] 103 mmol/L Normal 98-107 [facility] Comment on above: Order Comment: No: D o not add to previous draw Performed By: #### 5 0608 #### [facility] [address] [place] [address], [place] CO2 [Moles/Vol] 30 mmol/L Normal 21-31 [facility] Comment on above: Order Comment: No: D o not add to previous draw Performed By: #### 5 0608 #### [facility] [address] [place] [address], [place] Creatinine [Mass/Vol] 1.27 mg/dL High 0.60-1.20 [facility] Comment on above: Order Comment: No: D o not add to previous draw Performed By: #### 5 0608 #### [facility] [address] [place] [address], [place] GFR/1.73 sq M predicted among blacks MDRD (S/P/Bld) [Vol rate/Area] 49 ml/min/1.73sq m Abnormal >60 [facility] Comment on above: Order Comment: No: D o not add to previous draw Result Comment: Calc ulation may not be valid for patients over 70 years Performed By: #### 5 0608 #### [facility] [address] [place] [address], [place] GFR/1.73 sq M predicted among non-blacks MDRD (S/P/Bld) [Vol rate/Area] 41 ml/min/1.73sq m Abnormal >60 [facility] Comment on above: Order Comment: No: D o not add to previous draw Result Comment: Calc ulation may not be valid for patients over 70 years Performed By: #### 5 0608 #### [facility] [address] [place] [address], [place] Glucose [Mass/Vol] 162 mg/dL High 70-100 [facility] Comment on above: Order Comment: No: D o not add to previous draw Performed By: #### 5 0608 #### [facility] [address] [place] [address], [place] Potassium [Moles/Vol] 4.2 mmol/L Normal 3.5-5.1 [facility] Comment on above: Order Comment: No: D o not add to previous draw Performed By: #### 5 0608 #### [facility] [address] [place] [address], [place] Sodium [Moles/Vol] 142 mmol/L Normal 136-145 [facility] Comment on above: Order Comment: No: D o not add to previous draw Performed By: #### 5 0608 #### [facility] [address] [place] [address], [place] Urea nitrogen [Mass/Vol] 43 mg/dL High 7-25 [facility] Comment on above: Order Comment: No: D o not add to previous draw Performed By: #### 5 0608 #### [facility] [address] [place] [address], [place] CREATININE URINE RANDOMon Creatinine [Mass/Vol] 32.0 mg/dL Normal [facility] Comment on above: Order Comment: No: D o not add to previous draw Result Comment: Ther e are no established reference values for random urine specimens Performed By: #### 0 0071 #### [facility] [address] [place] [address], [place] FERRITINon 12-19-2018 Ferritin [Mass/Vol] 20 ng/mL Normal 11-307 [facility] Comment on above: Order Comment: No: D o not add to previous draw Performed By: #### 0 0071 #### [facility] [address] HEMOGLOBINon 12-19-2018 Hemoglobin (Bld) [Mass/Vol] 6.8 g/dL Low 12.0-15.0 [facility] Comment on above: Order Comment: No: D o not add to previous draw Performed By: #### 5 0608 #### [facility] [address] [facility]. [address] MAGNESIUM BLOODon 12-19-2018 Magnesium [Mass/Vol] 1.6 mg/dL Low 1.9-2.7 [facility] Comment on above: Order Comment: No: D o not add to previous draw Performed By: #### 0 0071 #### [facility] [address] PROTEIN ELECT URon 9 Protein [Mass/Vol] 9.0 mg/dL Normal [facility] Comment on above: Order Comment: No: D o not add to previous draw Result Comment: Ther e are no established reference values for random urine specimens Performed By: #### 0 0071 #### [facility] [address] Protein [Mass/Vol] URINE PROTEIN ELECTROPHORESIS NOT DONE; T.P. <10 MG/DL Normal [facility] Comment on above: Order Comment: No: D o not add to previous draw Performed By: #### 0 0071 #### [facility] [address] TIBC- INCLUDES IRONon 2018 FE SATURATION 8 % Low 20-50 [facility] Comment on above: Order Comment: No: D o not add to previous draw Performed By: #### 5 0608 #### [facility] [address] Iron [Mass/Vol] 33 ug/dL Low 50-212 [facility] Comment on above: Order Comment: No: D o not add to previous draw Performed By: #### 5 0608 #### [facility] [address] [place] [address], [facility] TIBC 431 mcg/dL Normal 250-450 [facility] Comment on above: Order Comment: No: D o not add to previous draw Performed By: #### 5 0608 #### [facility] [address] [place] [address], [facility] UIBC 398 mcg/dL High 155-355 [facility] Comment on above: Order Comment: No: D o not add to previous draw Performed By: #### 5 0608 #### [facility] [address] [place] [address], [facility] UA,MICROSCOPIC REQUIREDon Appearance (U) CLEAR Normal CLEAR [facility] Comment on above: Order Comment: No: D o not add to previous draw Performed By: #### 0 0071 #### [facility] [address] [place] [address], [facility] Bilirubin [Mass/Vol] Negative Normal NEGATIVE [facility] Comment on above: Order Comment: No: D o not add to previous draw Performed By: #### 0 0071 #### [facility] [address] [place] [address], [facility] BLOOD Negative Normal NEGATIVE [facility] Comment on above: Order Comment: No: D o not add to previous draw Performed By: #### 0 0071 #### [facility] [address] [place] [address], [facility] Color (U) STRAW Abnormal YELLOW [facility] Comment on above: Order Comment: No: D o not add to previous draw Performed By: #### 0 0071 #### [facility] [address] [place] [address], [place] EPIS MOD Abnormal FEW,OCC,NONE SEEN [facility] Comment on above: Order Comment: No: D o not add to previous draw Performed By: #### 0 0071 #### [facility] [address] [place] [address], [place] Glucose [Mass/Vol] Negative Normal NEGATIVE [facility] Comment on above: Order Comment: No: D o not add to previous draw Performed By: #### 0 0071 #### [facility] [address] [place] [address], [place] HYALINE CASTS 2 /LPF Abnormal NONE SEEN [facility] Comment on above: Order Comment: No: D o not add to previous draw Performed By: #### 0 0071 #### [facility] [address] [place] [address], [place] KETONE Negative Normal NEGATIVE [facility] Comment on above: Order Comment: No: D o not add to previous draw Performed By: #### 0 0071 #### [facility] [address] [place] [address], [facility] LEUK ARASH Negative Normal NEGATIVE [facility] Comment on above: Order Comment: No: D o not add to previous draw Performed By: #### 0 0071 #### [facility] [address] [place] [address], [place] Nitrite Ql (U) Negative Normal NEGATIVE [facility] Comment on above: Order Comment: No: D o not add to previous draw Performed By: #### 0 0071 #### [facility] [address] [place] [address], [facility] pH (Bld) 6.0 Normal 5.0-8.0 [facility] Comment on above: Order Comment: No: D o not add to previous draw Performed By: #### 0 0071 #### [facility] [address] [place] [address], [place] Protein [Mass/Vol] Negative Normal NEGATIVE [facility] Comment on above: Order Comment: No: D o not add to previous draw Performed By: #### 0 0071 #### [facility] [address] RBC (Bld) [#/Vol] 0-2 Abnormal NONE SEEN [facility] Comment on above: Order Comment: No: D o not add to previous draw Performed By: #### 0 0071 #### [address] SPEC GRAV 1.008 Low 1.015-1.020 [facility] Comment on above: Order Comment: No: D o not add to previous draw Performed By: #### 0 0071 #### [place] [address], [facility] WBC UA 0-2 Abnormal NONE SEEN [facility] Comment on above: Order Comment: No: D o not add to previous draw Performed By: #### 0 0071 #### [address] US RENALon 12-19-2018 US RENAL [facility] Department of Radiology [address] [place], [place] [address] == Patient Name: JENIFER HERNANDEZ : 1940 Sex: F Age: Race: NA Pt. Location: [id number] Patient Status: I Ordered Date: 12/19/2018 1:20:00 [...] findings. Electronically signed by:Tyree Momin. Transcribed by: [email or web address], User Resident: JOSE CHASE Electronically Signed by: TYREE MOMIN @ 12/20/2018 03:17 PM I personally read this/these film(s) with this resident Normal [facility] Comment on above: Order Comment: No: D o not add to previous draw ANTI C3 DATon 12-18-2018 ANTI C3 SOUTH Negative Normal [facility] Comment on above: Performed By: #### 5 08 #### [facility] [address] [place] [address], [place] ANTI IGG DATon 12-18-2018 ANTI IGG SOUTH Negative Normal [facility] Comment on above: Performed By: #### 5 0608 #### [facility] [address] [place] [address], [place] ANTIBODY IDENTIFICATIONon ANTIBODY ID C Normal [facility] Comment on above: Performed By: #### 5 0608 #### [facility] [address] [place] [address], [facility] BASIC METABOLIC PANELon 10-3 Calcium [Mass/Vol] 9.2 mg/dL Normal 8.6-10.3 [facility] Comment on above: Order Comment: No: D o not add to previous draw Performed By: #### 0 0071, 80829, 29091, 60552 #### [facility] [address] [place] [address], [place] Chloride [Moles/Vol] 98 mmol/L Normal 98-107 [facility] Comment on above: Order Comment: No: D o not add to previous draw Performed By: #### 0 0071, 66421, 97038, 38222 #### [facility] [address] [place] [address], [facility] CO2 [Moles/Vol] 30 mmol/L Normal 21-31 [facility] Comment on above: Order Comment: No: D o not add to previous draw Performed By: #### 0 0071, 47434, 73422, 66360 #### [facility] [address] [place] [address], [facility] Creatinine [Mass/Vol] 1.59 mg/dL High 0.60-1.20 [facility] Comment on above: Order Comment: No: D o not add to previous draw Performed By: #### 0 0071, 74790, 07628, 55523 #### [facility] [address] [place] [address], [place] GFR/1.73 sq M predicted among blacks MDRD (S/P/Bld) [Vol rate/Area] 38 ml/min/1.73sq m Abnormal >60 [facility] Comment on above: Order Comment: No: D o not add to previous draw Result Comment: Calc ulation may not be valid for patients over 70 years Performed By: #### 0 0071, 96317, 27201, 28086 #### [facility] [address] [place] [address], [facility] GFR/1.73 sq M predicted among non-blacks MDRD (S/P/Bld) [Vol rate/Area] 31 ml/min/1.73sq m Abnormal >60 [facility] Comment on above: Order Comment: No: D o not add to previous draw Result Comment: Calc ulation may not be valid for patients over 70 years Performed By: #### 0 0071, 86459, 31248, 10091 #### [facility] [address] [place] [address], [facility] Glucose [Mass/Vol] 115 mg/dL High 70-100 [facility] Comment on above: Order Comment: No: D o not add to previous draw Performed By: #### 0 0071, 44128, 87530, 97118 #### [facility] [address] [place] [address], [facility] Potassium [Moles/Vol] 3.1 mmol/L Low 3.5-5.1 [facility] Comment on above: Order Comment: No: D o not add to previous draw Performed By: #### 0 0071, 81041, 04150, 61686 #### [facility] [address] [place] [address], [facility] Sodium [Moles/Vol] 137 mmol/L Normal 136-145 [facility] Comment on above: Order Comment: No: D o not add to previous draw Performed By: #### 0 0071, 27409, 45226, 16484 #### [facility] [address] [place] [address], [facility] Urea nitrogen [Mass/Vol] 53 mg/dL High 7-25 [facility] Comment on above: Order Comment: No: D o not add to previous draw Performed By: #### 0 0071, 47710, 82335, 38753 #### [facility] [address] [place] [address], [place] CBC COMPLETE BLOOD COUNTon Erythrocyte distribution width (RBC) [Ratio] 15.9 % High 11.5-15.0 [facility] Comment on above: Order Comment: No: D o not add to previous draw Performed By: #### 5 0608 #### [facility] [address] [place] [address], [facility] Hematocrit (Bld) [Volume fraction] 21.4 % Low 36.0-45.0 [facility] Comment on above: Order Comment: No: D o not add to previous draw Performed By: #### 5 0608 #### [facility] [address] [place] [address], [facility] Hemoglobin (Bld) [Mass/Vol] 6.5 g/dL Low 12.0-15.0 [facility] Comment on above: Order Comment: No: D o not add to previous draw Performed By: #### 5 0608 #### [facility] [address] [place] [address], [facility] MCH (RBC) [Entitic mass] 26.5 pg Low 27.0-33.0 [facility] Comment on above: Order Comment: No: D o not add to previous draw Performed By: #### 5 0608 #### [facility] [address] [place] [address], [facility] MCHC (RBC) [Mass/Vol] 30.4 g/dL Low 32.0-35.0 [facility] Comment on above: Order Comment: No: D o not add to previous draw Performed By: #### 5 0608 #### [facility] [address] [place] [id number], [facility] MCV (RBC) [Entitic vol] 87.3 fL Normal 82.0-98.0 [facility] Comment on above: Order Comment: No: D o not add to previous draw Performed By: #### 5 0608 #### [facility] [address] [place] [address], [facility] Nucleated RBC/100 WBC (Bld) [Ratio] 0 % Normal 0-0 [facility] Comment on above: Order Comment: No: D o not add to previous draw Performed By: #### 5 0608 #### [facility] [address] [facility] [place] [place] [address], [facility] PLAT CNT 232 10*3/uL Normal 150-400 [facility] Comment on above: Order Comment: No: D o not add to previous draw Performed By: #### 5 0608 #### [facility] [address] [place] [address], [facility] RBC (Bld) [#/Vol] 2.45 10*6/uL Low 3.80-5.00 [facility] Comment on above: Order Comment: No: D o not add to previous draw Performed By: #### 5 0608 #### [facility] [address] [place] [address], [facility] WBC (Bld) [#/Vol] 7.40 10*3/uL Normal 4.00-10.60 [facility] Comment on above: Order Comment: No: D o not add to previous draw Performed By: #### 5 0608 #### [facility] [address] Cardiovascular Lab Reporton 12-18-2018 Cardiovascular Lab Report [facility] #: [id number] Physician: Herber Chi Department of Missy Flores Medicine Service Date: 12/17/2018 Division of Birthdate: 1940 Cardiology Room #: [id number] Adult Cardiovascular Services [place] [address] Cardiovascular Laboratory Report INDICATION: The patient is [...] signed informed consent. She was brought to slab miller operator in a fasting state. The right neck area was prepped and draped in usual fashion. Using ultrasound guidance and micropuncture technique, the right internal jugular vein was accessed. A 6-Bhutanese x 11 cm sheath was placed. A 6-Bhutanese Thompson catheter was used for right heart [...] A Herber Flores M.D. Date Dict: 12/17/2018/09:48 A/Herber Flores M.D. Date Trans: 12/18/2018 08:22 Becky/sha [id number] cc: Edu Odonnell D.O. [address] [place] [address] [place] [address] Normal [facility] HEMOGLOBINon 12-18-2018 Hemoglobin (Bld) [Mass/Vol] 7.3 g/dL Low 12.0-15.0 [facility] Comment on above: Order Comment: No: D o not add to previous draw Performed By: #### 5 0608 #### [facility] [address] [place] [address], [facility] Hemoglobin (Bld) [Mass/Vol] 7.2 g/dL Low 12.0-15.0 [facility] Comment on above: Order Comment: No: D o not add to previous draw Performed By: #### 5 0608 #### [facility] [address] [facility] [place] [address], [facility] Hemoglobin (Bld) [Mass/Vol] 6.9 g/dL Low 12.0-15.0 [facility] Comment on above: Order Comment: No: D o not add to previous draw Performed By: #### 9 2089 #### [facility] [address] [facility] [place] [address], [facility] IRON BLOODon 12-18-2018 Iron [Mass/Vol] 19 ug/dL Low 50-212 [facility] Comment on above: Order Comment: No: D o not add to previous draw Performed By: #### 0 0071, 85038, 98946, 06519 #### [facility] [address] [facility] [place] [address], [facility] MAGNESIUM BLOODon 12-18-2018 Magnesium [Mass/Vol] 1.8 mg/dL Low 1.9-2.7 [facility] Comment on above: Order Comment: No: D o not add to previous draw Performed By: #### 0 0071, 44137, 87950, 07860 #### [facility] [address] [place] [address], [facility] PHOSPHORUS BLOODon 9 Phosphate [Mass/Vol] 3.1 mg/dL Normal 2.5-5.0 [facility] Comment on above: Order Comment: No: D o not add to previous draw Performed By: #### 0 0071, 25561, 10912, 58645 #### [facility] [address] [place] [address], [facility] RBC'S 2 UNITSon 12-18-2018 CROSSMATCH INTERP 1 COMP Normal [facility] Comment on above: Performed By: #### 5 0608 #### [facility] [address] [place] [address], [facility] CROSSMATCH INTERP 2 COMP Normal [facility] Comment on above: Performed By: #### 5 0608 #### [facility] [address] [place] [address], [facility] PRODUCT CODE 1 E0336 Normal [facility] Comment on above: Performed By: #### 5 0608 #### [facility] [address] [place] [address], [facility] PRODUCT CODE 2 E0336 Normal [facility] Comment on above: Performed By: #### 5 0608 #### [facility] [address] [facility] [place] [address], [facility] PRODUCT STATUS 1 PT Normal [facility] Comment on above: Result Comment: Resu lt changed by IF on 12/19/2018 09:14. The previous value was XM. Result changed by IF on 12/20/2018 00:30. The previous value was IS. Performed By: #### 5 0608 #### [facility] [address] [place] [address], [facility] PRODUCT STATUS 2 RE Normal [facility] Comment on above: Result Comment: Resu lt changed by IF on 12/22/2018 07:27. The previous value was XM. Performed By: #### 5 0608 #### [facility] [address] [place] [address], [facility] UNIT ABO 1 A Normal [facility] Comment on above: Performed By: #### 5 0608 #### [facility] [address] [place] [address], [facility] UNIT ABO 2 A Normal [facility] Comment on above: Performed By: #### 5 0608 #### [facility] [address] [place] [address], [facility] UNIT ID 1 [id number] Normal [facility] Comment on above: Performed By: #### 5 0608 #### [facility] [address] [place] [address], [facility] UNIT ID 2 [id number] Normal [facility] Comment on above: Performed By: #### 5 0608 #### [facility] [address] [place] [address], [facility] UNIT RH 1 Negative Normal [facility] Comment on above: Performed By: #### 5 0608 #### [facility] [address] [place] [address], [facility] UNIT RH 2 Negative Normal [facility] Comment on above: Performed By: #### 5 0608 #### [facility] [address] [place] [address], [place] TYPE AND SCREENon 12-18-2018 ABO INTERPRETATION A Normal [facility] Comment on above: Performed By: #### 5 0608 #### [facility] [address] [place] [address], [place] RH INTERPRETATION Positive Normal [facility] Comment on above: Performed By: #### 5 0608 #### [facility] [address] [place] [address], [facility] BASIC METABOLIC PANELon 10-3 Calcium [Mass/Vol] 9.5 mg/dL Normal 8.6-10.3 [facility] Comment on above: Order Comment: No: D o not add to previous draw Performed By: #### 0 0071 #### [facility] [address] [place] [address], [place] Chloride [Moles/Vol] 95 mmol/L Low 98-107 [facility] Comment on above: Order Comment: No: D o not add to previous draw Performed By: #### 0 0071 #### [facility] [address] [place] [address], [place] CO2 [Moles/Vol] 29 mmol/L Normal 21-31 [facility] Comment on above: Order Comment: No: D o not add to previous draw Performed By: #### 0 0071 #### [facility] [address] [place] [address], [place] Creatinine [Mass/Vol] 2.01 mg/dL High 0.60-1.20 [facility] Comment on above: Order Comment: No: D o not add to previous draw Performed By: #### 0 0071 #### [facility] [address] [place] [address], [place] GFR/1.73 sq M predicted among blacks MDRD (S/P/Bld) [Vol rate/Area] 29 ml/min/1.73sq m Abnormal >60 [facility] Comment on above: Order Comment: No: D o not add to previous draw Result Comment: Calc ulation may not be valid for patients over 70 years Performed By: #### 0 0071 #### [facility] [address] [place] [address], [place] GFR/1.73 sq M predicted among non-blacks MDRD (S/P/Bld) [Vol rate/Area] 24 ml/min/1.73sq m Abnormal >60 [facility] Comment on above: Order Comment: No: D o not add to previous draw Result Comment: Calc ulation may not be valid for patients over 70 years Performed By: #### 0 0071 #### [facility] [address] [place] [address], [place] Glucose [Mass/Vol] 125 mg/dL High 70-100 [facility] Comment on above: Order Comment: No: D o not add to previous draw Performed By: #### 0 0071 #### [facility] [address] [place] [address], [facility] Potassium [Moles/Vol] 2.8 mmol/L Low 3.5-5.1 [facility] Comment on above: Order Comment: No: D o not add to previous draw Performed By: #### 0 0071 #### [facility] [address] [place] [address], [facility] Sodium [Moles/Vol] 135 mmol/L Low 136-145 [facility] Comment on above: Order Comment: No: D o not add to previous draw Performed By: #### 0 0071 #### [facility] [address] [place] [address], [facility] Urea nitrogen [Mass/Vol] 62 mg/dL High 7-25 [facility] Comment on above: Order Comment: No: D o not add to previous draw Performed By: #### 0 0071 #### [facility] [address] [facility] [place] [address], [facility] CBC COMPLETE BLOOD COUNTon Erythrocyte distribution width (RBC) [Ratio] 15.8 % High 11.5-15.0 [facility] Comment on above: Order Comment: No: D o not add to previous draw Performed By: #### 5 0608 #### [facility] [address] [place] [address], [facility] Hematocrit (Bld) [Volume fraction] 24.7 % Low 36.0-45.0 [facility] Comment on above: Order Comment: No: D o not add to previous draw Performed By: #### 5 0608 #### [facility] [address] [place] [address], [facility] Hemoglobin (Bld) [Mass/Vol] 7.5 g/dL Low 12.0-15.0 [facility] Comment on above: Order Comment: No: D o not add to previous draw Performed By: #### 5 0608 #### [facility] [address] MCH (RBC) [Entitic mass] 26.8 pg Low 27.0-33.0 [facility] Comment on above: Order Comment: No: D o not add to previous draw Performed By: #### 5 0608 #### [facility] [address] MCHC (RBC) [Mass/Vol] 30.4 g/dL Low 32.0-35.0 [facility] Comment on above: Order Comment: No: D o not add to previous draw Performed By: #### 5 0608 #### [facility] [address] MCV (RBC) [Entitic vol] 88.2 fL Normal 82.0-98.0 [facility] Comment on above: Order Comment: No: D o not add to previous draw Performed By: #### 5 0608 #### [facility] [address] Nucleated RBC/100 WBC (Bld) [Ratio] 0 % Normal 0-0 [facility] Comment on above: Order Comment: No: D o not add to previous draw Performed By: #### 5 0608 #### [facility] [address] [place] [address], [facility] PLAT CNT 260 10*3/uL Normal 150-400 [facility] Comment on above: Order Comment: No: D o not add to previous draw Performed By: #### 5 0608 #### [facility] [address] [place] [address], [facility] RBC (Bld) [#/Vol] 2.80 10*6/uL Low 3.80-5.00 [facility] Comment on above: Order Comment: No: D o not add to previous draw Performed By: #### 5 0608 #### [address] WBC (Bld) [#/Vol] 8.14 10*3/uL Normal 4.00-10.60 [facility] Comment on above: Order Comment: No: D o not add to previous draw Performed By: #### 5 0608 #### [facility] [address] [place], [place] [address] [place] [address] CHEST AND LATERALon 12-18-19 CHEST AND LATERAL [facility] Department of Radiology [address] [place] [address] == Patient Name: JENIFER HERNANDEZ : 1940 [...] lungs Electronically signed by:Dori Olson. Transcribed by: [email or web address], User Resident: Electronically Signed by: DORI OLSON @ 12/17/2018 01:43 PM Normal [facility] Comment on above: Order Comment: R/O E ffusion History and Physicalon 12-17 History and Physical MR#: [id number] [facility] Pt. Name: Jenifer Hernandez Admitted: 12/17/2018 Date of : 1940 Attending Physician: Beverly Brock MD Room #: 3CD [id number] Discharge Date: HISTORY AND PHYSICAL CHIEF COMPLAINT: Shortness of breath. HISTORY OF PRESENT ILLNESS: This is an 78-year-old female with past medical history significant for diastolic congestive heart failure, history of coronary artery disease status post remote CABG, history of gastric/duodenal ulcer disease, and history of chronic atrial fibrillation, on Xarelto. The patient was evaluated with her rating examiner recently for increased shortness of breath on simple daily activities like walking few steps from the garage to her home. She was found to be in exacerbation of her diastolic heart failure and her diuretic dosage was increased. She was sent to [facility] for an elective right heart [...] for that she was seen by a news videotape editor. She thinks that she had an EGD [...] Brock MD Date Trans: 12/17/2018 12:28 P/mmo [id number] Normal [facility] Vital Signs Date Time Vital Sign Value Performing Clinician Lyndsey trevino 01-09-2024 14:06-0500 Body height 162.6 cm Shell Hemphill O[employer] EXTR[employer]OR Work Phone: [facility] 01-09-2024 14:06-0500 Body mass index (BMI) [Ratio] 27.84 kg/m2 Shell Hemphill OIL EXTRACTOR Work Phone: [facility] 01-09-2024 14:06-0500 Body temperature 99.5 [degF] Shell Hemphill OIL EXTRACTOR Work Phone: [facility] 01-09-2024 14:06-0500 Body weight 73.57 kg Shell Hemphill OIL EXTRACTOR Work Phone: [facility] 01-09-2024 14:06-0500 Diastolic blood pressure 64 mm[Hg] Shell Hemphill OIL EXTRACTOR Work Phone: [facility] 01-09-2024 14:06-0500 Heart rate 88 /min Shell Hemphill OIL EXTRACTOR Work Phone: [facility] 01-09-2024 14:06-0500 Respiratory rate 16 /min Shell Hemphill OIL EXTRACTOR Work Phone: [facility] 01-09-2024 14:06-0500 SaO2% (BldA) [Mass fraction] 94 % Shell Neritrick OIL EXTRACTOR Work Phone: [facility] 01-09-2024 14:06-0500 Systolic blood pressure 116 mm[Hg] Shell Jackpatrick OIL EXTRACTOR Work Phone: [facility] 10-14-2023 09:03-0400 Body height 162.6 cm Shell Neritrick OIL EXTRACTOR Work Phone: [facility] 10-14-2023 09:03-0400 Body mass index (BMI) [Ratio] 26.43 kg/m2 Shell Jackpatrick OIL EXTRACTOR Work Phone: [facility] 10-14-2023 09:03-0400 Body temperature 99.5 [degF] Shell Neritrick OIL EXTRACTOR Work Phone: [facility] 10-14-2023 09:03-0400 Body weight 69.85 kg Shell Neritrick OIL EXTRACTOR Work Phone: [facility] 10-14-2023 09:03-0400 Diastolic blood pressure 70 mm[Hg] Shell Hemphill OIL EXTRACTOR Work Phone: [facility] 10-14-2023 09:03-0400 Heart rate 92 /min Shell Neritrick OIL EXTRACTOR Work Phone: [facility] Comment on above: 96% O2 10-14-2023 09:03-0400 Systolic blood pressure 120 mm[Hg] Shell Jackpatrick OIL EXTRACTOR Work Phone: [facility] Healthcare Encounters Encounter Date Encounter Type Care Provider Facility Start: 03-01-2024 End: 03-02-2024 Refill Shell Neritrick OIL EXTRACTOR Work Phone: [facility] Comment on above: Hypercholesteremia ( CMS/HCC) Start: 02-20-2024 End: 02-24-2024 Refill Shell Hemphill OIL EXTRACTOR Work Phone: [facility] Comment on above: Chronic diastolic he art failure (CMS/HCC) Start: 02-04-2024 End: 02-04-2024 Clinisync Result Encounter Generic External Data Provider [facility] Unsolicited Start: 02-04-2024 End: 02-04-2024 Clinisync Result Encounter Generic External Data Provider [facility] External [facility] Unsolicited Start: 01-13-2024 End: 01-13-2024 ambulatory [facility] Start: 01-09-2024 End: 01-09-2024 Office outpatient visit 15 minutes Shell Hemphill OIL EXTRACTOR Work Phone: [facility] Comment on above: Hypertension, unspec ified type (CMS/HCC) (Primary Dx); Other hyperlipidemia (CMS/HCC); Stage 3b chronic kidney disease (HCC) (CMS/HCC) Start: 01-09-2024 End: 01-09-2024 Bamboo flowsheet Shell Neritrick OIL EXTRACTOR Work Phone: [facility] Start: 01-09-2024 End: 01-09-2024 Bamboo flowsheet Shell Hemphill OIL EXTRACTOR Work Phone: [facility] Start: 01-09-2024 End: 01-09-2024 ambulatory SHELL HEMPHILL Not Available Start: 12-26-2023 End: 12-26-2023 Clinisync Result Encounter Generic External Data Provider [facility] Unsolicited Start: 12-26-2023 End: 12-26-2023 Clinisync Result Encounter Generic External Data Provider [facility] External Department Unsolicited Start: 12-18-2023 End: 12-18-2023 ambulatory [facility] Start: 12-18-2023 End: 12-18-2023 Clinisync Result Encounter Generic External Data Provider [facility] External Department Unsolicited Start: 12-18-2023 End: 12-18-2023 Clinisync Result Encounter Generic External Data Provider [facility] External Department Unsolicited Start: 11-25-2023 End: 11-25-2023 Refill Shell Hemphill OIL EXTRACTOR Work Phone: [facility] Comment on above: Hypercholesteremia ( CMS/HCC) (Primary Dx) Start: 10-28-2023 End: 10-28-2023 Clinisync Result Encounter Generic External Data Provider [facility] External Department Unsolicited Start: 10-28-2023 End: 10-28-2023 Clinisync Result Encounter Generic External Data Provider [facility] External [facility] Unsolicited Start: 10-14-2023 End: 10-14-2023 Bamboo flowsheet Shell Hemphill OIL EXTRACTOR Work Phone: [facility] Start: 10-14-2023 End: 10-14-2023 Bamboo flowsheet Shell Neritrick OIL EXTRACTOR Work Phone: [facility] Start: 10-14-2023 End: 10-14-2023 Office outpatient visit 25 minutes Shell Hemphill OIL EXTRACTOR Work Phone: [facility] Comment on above: Hypercholesteremia ( CMS/HCC) (Primary Dx); Hypertensive heart disease with heart failure (CMS/HCC); Hypertension, unspecified type (CMS/HCC); Cerumen debris on tympanic membrane of both ears; Stage 3b chronic kidney disease (HCC) (CMS/HCC); Chronic fatigue Start: 10-14-2023 End: 10-14-2023 ambulatory SHELL HEMPHILL Not Available Start: 09-25-2023 End: 09-25-2023 ambulatory [facility] Start: 09-10-2023 End: 09-10-2023 ambulatory [facility] Start: 06-14-2023 End: 06-14-2023 ambulatory [facility] Start: 05-21-2023 End: 05-21-2023 ambulatory SHAIKH KB Not Available Start: 05-06-2023 End: 05-06-2023 ambulatory [facility] Start: 04-25-2023 End: 04-25-2023 ambulatory SHAIKH KB Not Available Start: 01-31-2022 End: 02-01-[address] HERBER FLORES Facility:[facility] Start: 01-18-2022 End: 01-18-2022 ambulatory PETR MERLOS Facility:[facility] Start: 12-21-2021 End: 12-21-2021 ambulatory PETR MERLOS Facility:[facility] Start: 11-15-[address] EDU ODONNELL Facilghada ty:[facility] Start: 10-18-2021 End: 10-19-[address] EDU ODONNELL Facility:[facility] Start: 08-22-[address] EDU ODONNELL Facili ty:[facility] Start: 08-18-2021 End: 08-19-2021 ambulatory LOGAN MORAN Facility:[facility] Start: 03-28-2021 End: 03-29-[address] DOCTOR LEGER Facility:[facility] Start: 03-07-2021 End: 03-08-2021 ambulatory LOGAN MORAN Facility:[facility] Start: 01-05-2019 End: 01-14-2019 Evaluation and management of inpatient KENNEDI MARSHALL Facility:[facility] Start: 12-17-2018 End: 12-24-2018 Evaluation and management of inpatient EDU ODONNELL Facility:[facility] Procedures Date Procedure Procedure Detail Performing Clinician Start: 02-04-2024 ALL BASIC METABOLIC PANEL Generic External Data Provider Start: 12-26-2023 ALL BASIC METABOLIC PANEL Generic External Data Provider Start: 12-18-2023 ALL BASIC METABOLIC PANEL Generic External Data Provider Start: 10-28-2023 ALL BASIC METABOLIC PANEL Generic External Data Provider Start: 02-01-2022 History of coronary artery bypass grafting History of coronary artery bypass graft Shell Hemphill NP Work Phone: Start: 01-12-2019 [employer] [facility] Cardi ac Rhythm, Single MOSHRIK ABD [...] above: Performed By: #### [id number] #### [facility] [place] [address], [facility] Start: 12-17-2018 MEASURE OF CARDIAC S AMPL \T\ PRESSURE, R HEART, PERC APPROACH HERBER FLORES Start: 12-17-2018 MEASUREMENT OF ARTER IAL FLOW, PULMONARY, PERC APPROACH HERBER FLORES Plan of Treatment Date Care Activity Detail Author Start: 04-13-2024 End: 04-13-2024 Patient encounter procedure 04/13/2024 2:00 PM EST Office Visit [facility] [address] [place] [phone] Shell Hemphill, JEFFERY [address] [place] [phone] [facility] Start: 01-14-2024 End: 01-14-2024 Patient encounter procedure 01/14/2024 10:30 AM EST Office Visit [facility] [address] [place] [phone] Shell Hemphill NP [address] [place] [phone] [facility] Start: 01-09-2024 End: 01-09-2024 Patient encounter procedure [facility] Comment on above: Arrived Start: 10-20-2023 Influenza vaccination Influenza Vaccine (#1) [facility] Start: 10-14-2023 End: 10-14-2023 Patient encounter procedure 10/14/2023 9:00 AM EDT [facility] [address] [place] [phone] Shell Hemphill NP [address] [place] [phone] Hypercholesteremia (CMS/HCC) (Primary Dx); Hypertensive heart disease with heart failure (CMS/HCC); Chronic fatigue [facility] Comment on above: Hypercholesteremia (CMS/HCC) (Primary Dx ); Hypertensive heart disease with heart failure (CMS/HCC); Chronic fatigue Start: 1944 Pneumococcal Vaccine: 65+ Years (1 of 2 - PCV) Pneumococcal Vaccine: 65+ Years (1 of 2 - PCV) [facility] Immunizations Immunization Date Immunization Notes Care Provider Fa cility 01-11-2021 Pfizer Purple Cap SARS-CoV-2 Vaccination Shell Hemphill OIL EXTRACTOR Work Phone: [facility] 06-30-2020 Pfizer Purple Cap SARS-CoV-2 Vaccination Shell Hemphill OIL EXTRACTOR Work Phone: [facility] 06-09-2020 Pfizer Purple Cap SARS-CoV-2 Vaccination Shell Hemphill OIL EXTRACTOR Work Phone: [facility] 11-04-2019 influenza, high dose seasonal, preservative-free Shell Hemphill OIL EXTRACTOR Work Phone: [facility] 11-04-2019 influenza virus vaccine, unspecified formulation Shell Hemphill OIL EXTRACTOR Work Phone: [facility] 04-30-2019 zoster vaccine recombinant Shell Hemphill OIL EXTRACTOR Work Phone: [facility] 02-25-2019 zoster vaccine recombinant Shell Hemphill OIL EXTRACTOR Work Phone: [facility] 10-27-2018 Seasonal trivalent influenza vaccine, adjuvanted, preservative free Shell Hemphill OIL EXTRACTOR Work Phone: [facility] 10-13-2015 influenza, high dose seasonal, preservative-free Shell Hemphill OIL EXTRACTOR Work Phone: [facility] Payers Date Payer Category Payer Private Health Insurance [id number] 2005 Medicare [id number] 1959 Medicare [id number] 1959 Self-pay 1959 Unknown [id number] 1938 Unknown [id number] 2.16.8 [id number] 1938 Unknown [id number] 2.16.8 [id number] 1938 Unknown [id number] 2.16.84 [id number] 1938 Unknown [id number] 2.16.84 [id number] 1938 Unknown [id number] 2.16.84 [id number] 1938 Unknown [id number] 2.16.84 [id number] 1938 Unknown [id number] 2.16.84 [id number] 1938 Unknown [id number] 2.16.84 [id number] 1938 Unknown [id number] 2.16.84 [id number] 1938 Unknown [id number] 2.16.84 [id number] 1938 Unknown [id number] 2.16.84 [id number] 1938 Unknown [id number] 2.16.84 [id number] 1938 Unknown [id number] 2.16.84 [id number] 1938 Unknown [id number] 2.16.84 [id number] 1938 Unknown [id number] 2.16.84 [id number] Social History Date Type Detail Facility Start: 05-21-2023 [facility] Start: 05-21-2023 Tobacco use and exposure Smokeless tobacco non-user [facility] Start: 10-14-2023 End: 01-09-2024 Alcoholic beverage intake Lifetime non-drinker (finding) [facility] Start: 10-14-2023 End: 01-09-2024 History of Social function [facility] Start: 10-14-2023 End: 01-09-2024 Tobacco use panel [facility] Start: 1940 Sex assigned at Not on file N [facility] [place] [facility] NEGATED: Highlighted rowStart: NINF History of tobacco use Passive smoker [facility] Clinical Notes 12-21-2021 to 01-13-2024 Shell Hemphill, OIL EXTRACTOR - 01/09/2024 2:41 PM Radhames Hemphill, OIL EXTRACTOR - 01/09/2024 2:41 PM Radhames Hemphill, OIL EXTRACTOR - 01/09/2024 2:41 PM Radhames Hemphill, OIL EXTRACTOR - 01/09/2024 2:30 PM EST Note Date & Type Note Facility 01-13-2024 Note [place] Cardiology - [facility] Subjective Jenifer Hernandez is a 83 [...] heart failure (CMS/HCC) Coronary artery disease involving [place] coronary artery of [place] heart without angina pectoris History of coronary [...] respond to it. She was admitted to [facility] with decompensated HF in 05/2018. Update [...] The right wes (more content not included)... [facility] 01-09-2024 History of Present illness Narrative Associated Problem(s): HTN (hypertension) ([facility]) Currently taking Metoprolol 100mg and Isosorbide 30mg [...] kidney disease (HCC) (CMS/HCC) eGFR is 32. Labeling Associate of CKD stage 3; Has been trending downwards for quite sometime. Likely r/t HF. Pt states she was unaware of this and has never been referred to or seen nephrology in the past. Referral sent to Nephrology in [place]. Pt did not follow up yet. Images [...] Continue current regimen. CKD: eGFR is 34. Labeling Associate of CKD stage 3; Has been trending downwards for quite sometime. Likely r/t HF. Pt states she was unaware of this and has never been referred to or seen nephrology in the past. Referral sent to Nephrology in [place]. Pt did not follow up yet. Review [...] List Items Addressed This Visit HTN (hypertension) (CMS/HCC) - Primary Currently taking Metoprolol 100mg and Isosorbide 30mg Does not check BP at home; Denies orthostatic changes, dizziness, cough, shortness of breath, swelling in extremities. Continue current regimen. Given BP log, advised pt to record BP and bring log back with them to next visit. Other hyperlipidemia (CMS/HCC) Currently taking atorvastatin 20mg Denies any myalgias. Continue current regimen. Stage 3b chronic kidney disease (HCC) (CMS/HCC) eGFR is 32. Labeling Associate of CKD stage 3; Has been trending downwards for quite sometime. Likely r/t HF. Pt states she was unaware of this and has never been referred to or seen nephrology in the past. Referral sent to Nephrology in [place]. Pt did not follow up yet. documented in this encounter [facility] 12-18-2023 Note [place] Cardiology - [facility] Subjective Jenifer Hernandez is a 83 y.o. year old female patient being seen for follow-up visit Patient Active Problem List Diagnosis Chronic atrial fibrillation (CMS/HCC) Chronic diastolic congestive heart failure (CMS/HCC) Coronary artery disease involving [place] coronary artery of [place] heart without angina pectoris History of coronary [...] , Rfl: ergocalciferol (Vitamin D-2) 1.25 MG (22409 Units) capsule, Vitamin D2 1,250 mcg (50,000 [...] TABLETS BY MO (more content not included)... [facility] 10-14-2023 History of Present illness Narrative Associated Problem(s): Stage 3b chronic kidney disease (HCC) (CMS/HCC) eGFR is 34. Labeling Associate of CKD stage 3; Has been trending downwards for quite sometime. Likely r/t HF. Pt states she was unaware of this and has never been referred to or seen nephrology in the past. Referral sent to Nephrology in [place]. Consider adding SLGT-2 today. Will discuss with Poll Watcher first. Associated Problem(s): Chronic fatigue Iron deficiency; Taking Ferrous sulfate. Chronic diastolic HF. TSH normal. Associated Problem(s): Hypercholesteremia (CMS/HCC) On Atorvastatin 20mg Denies myalgias; Last lipid panel looks great Continue current regimen. 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 Spironlactone Isosorbide Metoprolol Kidney function is very low, equal opportunity representative of CKD stage 3; Likely r/t HF. Pt states she was unaware of this and has never been referred to or seen nephrology in the past. Referral sent to Nephrology in [place]. Consider adding SLGT-2 today. Will discuss with Poll Watcher first. Associated Problem(s): HTN (hypertension) (CMS/HCC) Metoprolol 100mg and Isosorbide 30mg Denies orthostatic changes Denies edema Does not check BP at home; Given BP log today in office. Educated on accurate BP measuring steps. Advised pt to check once per day in the afternoon and bring back to next visit. Continue medications as directed. Images from the original note were not included. Subjective Patient ID: Jenifer Hernandez is a 83 y.o. female who presents for Follow-up ([employer] FROM [employer]). HPI HTN: Metoprolol 100mg and Isosorbide 30mg Denies orthostatic changes Denies edema Does not check BP at home; Given BP log today in office. Educated on accurate BP measuring steps. Advised pt to check once per day in the afternoon and bring back to next visit. HF: Follows with Cardiology; [facility]. Spironlactone Isosorbide Metoprolol Kidney function is very low, equal opportunity representative of CKD stage 3; Likely r/t HF. Pt states she was unaware of this and has never been referred to or seen nephrology in the past. Referral sent to Nephrology in [place]. Consider adding SLGT-2 today. Will discuss with Poll Watcher first. Fatigue: Iron deficiency; Taking Ferrous sulfate. Chronic diastolic HF. HLD: On Atorvastatin 20mg Denies myalgias TRIGLYCERIDES <=150 mg/dL 72 M 140 R 25.6 R 66 3,347.0 High Panic R, CM 140 R 15.9 Low R CHOLESTEROL <=200 mg/dL 127 3.8 R 0.1 R 116 3.1 Low R 0.1 R HDL CHOLESTEROL 40 - 60 mg/dL 58 12.7 R 4.1 R 55 CM 9.4 R 5.0 R Comment: > or =60 mg/dl - LOW CARDIOVASCULAR RISK <40 mg/dl - HIGH CARDIOVASCULAR RISK LDL CHOLESTEROL CALCULATED mg/dL 54.6 117 High R 1.8 R 47.8 CM 106 R 1.1 Low R Comment: <100 mg/dl OPTIMAL 100-129 mg/dl NEAR OR ABOVE OPTIMAL 130-159 mg/dl BORDERLINE HIGH 160-189 mg/dl HIGH >190 mg/dl VERY HIGH VLDL CHOLESTEROL mg/dL 14.4 1.0 R 0.9 High R 13.2 1.1 High R 0.9 High R CHOL HDL RATIO 2.2 29 R 0.01 R 2.1 CM 26 R 0.01 R Comment: 3.3 - 4.4 LOW RISK 4.4 - 7.1 AVERAGE RISK 7.1 - 11.0 MODERATE RISK >11.0 HIGH RISK ALANINE AMINOTRANSFERASE 24 R 20 R ALKALINE PHOSPHATASE 125 High R 108 R TOTAL PROTEIN 8.5 High R 7.9 R ALBUMIN LEVEL 3.8 R 3.7 R ALBUMIN GLOBULIN RATIO 0.8 0.9 Resulting Agency [facility] Narrative Review of Systems Constitutional: Negative for activity [...] List Items Addressed This Visit HTN (hypertension) (CMS/HCC) Metoprolol 100mg and Isosorbide 30mg Denies orthostatic changes Denies edema Does not check BP at home; Given BP log today in office. Educated on accurate BP measuring steps. Advised pt to check once per day in the afternoon and bring back to next visit. Continue medications as directed. Hypercholesteremia (CMS/HCC) - Primary On Atorvastatin 20mg Denies myalgias; Last lipid panel looks great Continue current regimen. Chronic fatigue Iron deficiency; Taking Ferrous sulfate. Chronic diastolic HF. TSH normal. 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 Spironlactone Isosorbide Metoprolol Kidney function is very low, equal opportunity representative of CKD stage 3; Likely r/t HF. Pt states she was unaware of this and has never been referred to or seen nephrology in the past. Referral sent to Nephrology in [place]. Consider adding SLGT-2 today. Will discuss with Poll Watcher first. Relevant Medications spironolactone (Aldactone) 25 MG tablet Other Relevant Orders Ambulatory referral to Nephrology Stage 3b chronic kidney disease (HCC) ([facility]) eGFR is 34. Labeling Associate of CKD stage 3; Has been trending downwards for quite sometime. Likely r/t HF. Pt states she was unaware of this and has never been referred to or seen nephrology in the past. Referral sent to Nephrology in [place]. Consider adding SLGT-2 today. Will discuss with Poll Watcher first. Relevant Orders Ambulatory referral to Nephrology Other Visit Diagnoses Cerumen debris on tympanic membrane of both ears Relevant Medications carbamide peroxide (Debrox) 6.5 % otic solution documented in this encounter [facility] 10-14-2023 Instructions Shell Hemphill NP - 10/14/2023 9:00 AM EDT Your blood pressure is GOOD in the office today. Check your blood pressure at home 3 times per week, preferably in the afternoon. Goal <130/90. Record results in blood pressure log. Bring back with you to your next visit. Referral sent to Nephrology- they will call you! Debrox sent in for ear wax. Follow instructions on bottle. Diet: Eat three meals per day. Breakfast, lunch, and dinner. Avoid snacking. Avoid eating after 5/6 pm. Daily protein GOAL 35% of your intake; 30g per meal. Daily calorie GOAL 1,800-2,000 per day. Consider tracking your food intake on MyFtinessPal or LoseIt Water: Increase water intake; GOAL 64-80oz of water per day. Exercise: Increase activity. GOAL 30 minutes, 5 days per week. START SLOW. Start with 5 minutes, 5 days per week. Then increase to 10 days, 5 days per week. Continue to increase until you reach the goal. Increase steps; GOAL 10,000 steps per day. Be sure to get adequate sleep; GOAL 6-8 hours of sleep per night. documented in this encounter [facility] 09-25-2023 Note [place] Cardiology - [facility] Subjective Jenifer Hernandez is a 83 y.o. year old female patient being seen for follow up ADWOA and [facility]. SOB w/ exertion and LE edema has resolved she says. Denies chest pain, palpitations, and bleeding on Xarelto. Had BMP last week. Patient Active Problem List Diagnosis Chronic atrial fibrillation (CMS/HCC) Chronic diastolic congestive heart failure (CMS/HCC) Coronary artery disease involving [place] coronary artery of [place] heart without angina pectoris History of coronary [...] respond to it. She was admitted to [facility] with decompensated HF in 05/2018. Update [...] The echocardiographic picture (more content not included)... [facility] 09-10-2023 Note Patient: Jenifer lorenz Procedure Information Date/Time: 09/10/23 1300 Procedure: Right heart cath - pc approved with [facility] Location: [facility] SOILED LINEN DISTRIBUTOR 3 / [facility] (Cath) Providers: Herber Flores MD Clinical information reviewed: Allergies Meds Physical Exam Airway Mallampati: II TM distance: >3 FB Neck ROM: full Cardiovascular Rhythm: regular Rate: normal Dental Pulmonary Abdominal Anesthesia Plan ASA 3 other (Conscious sedation.) Anesthetic plan and risks discussed with patient. Use of blood products discussed with patient who consented to blood products. Additional Equipment Requests [facility] 06-14-2023 Note [place] Cardiology - [facility] Subjective Jenifer Hernandez is a 83 y.o. year old female patient being seen for Follow-up (1 month- stress/echo) Patient Active Problem List Diagnosis Chronic atrial fibrillation (CMS/HCC) Chronic diastolic congestive heart failure (CMS/HCC) Coronary artery disease involving [place] coronary artery of [place] heart without angina pectoris History of coronary [...] respond to it. She was admitted to [facility] with decompensated HF in 05/2018. Update [...] breath on exert (more content not included)... [facility] 05-06-2023 Note [place] Cardiology - [facility] Subjective Jenifer Hernandez is a 82 [...] heart failure (CMS/HCC) Coronary artery disease involving [place] coronary artery of [place] heart without angina pectoris History of coronary [...] respond to it. She was admitted to [facility] with decompensated HF in 05/2018. Update [...] EF 65-70%). Normal (more content not included)... [facility] 01-18-2022 Note OPERATIVE NOTE OPERATION DATE: 01/18/2022 [...] ensuring mobility, phacoemulsification was performed in a [id number]-type fashion. After all nuclear material had been [...] the following day for postoperative care. [facility] 01-18-2022 Note HISTORY AND PHYSICAL EXAMINATION Date:01/17/2022 [...] go forward with her elective procedure. [facility] 12-21-2021 Note HISTORY AND PHYSICAL EXAMINATION Date:12/20/2021 [...] go forward with her elective procedure. [facility] 12-21-2021 Note OPERATIVE NOTE OPERATION DATE: 12/21/2021 [...] ensuring mobility, phacoemulsification was performed in a [id number]-type fashion. After all nuclear material had been [...] the following day for postoperative care. [facility] [facility] Evaluation note Diagnosis Hypercholesteremia (CMS/HCC)- Primary Pure [...] aortocoronary bypass status Coronary artery disease involving [place] coronary artery of [place] heart without angina pectoris (CMS/HCC) Chronic atrial [...] (HCC) (CMS/HCC) [facility] Diagnosis Hypercholesteremia (CMS/HCC)- Primary Pure hypercholesterolemia Hypertensive heart disease with heart failure (CMS/HCC) Unspecified hypertensive heart disease with heart failure Hypertension, unspecified type (CMS/HCC) Cerumen debris on tympanic membrane of both ears Stage 3b chronic kidney disease (HCC) ([facility]/HCC) Chronic fatigue Other malaise and fatigue [facility]* Diagnosis Primary hypertension (CMS/HCC)- Primary Unspecified essential hypertension Hypercholesteremia (CMS/HCC) Pure hypercholesterolemia Chronic diastolic heart failure (CMS/HCC) Chronic diastolic heart failure Other hyperlipidemia (CMS/HCC) Chronic fatigue Other malaise and fatigue Shortness of breath Pulmonary HTN (CMS/HCC) Hypertensive heart disease with heart failure ([facility]/HCC) Unspecified hypertensive heart disease with 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 Coronary artery disease involving [place] coronary artery of [place] heart without angina pectoris (CMS/HCC) Chronic atrial fibrillation, unspecified ([facility]) Establishing care with new doctor, encounter for [...] 3b chronic kidney disease (HCC) (CMS/HCC) Chronic diastolic heart failure (CMS/HCC) Chronic diastolic heart failure [facility] [...] aortocoronary bypass status Coronary artery disease involving [place] coronary artery of [place] heart without angina pectoris (CMS/HCC) Chronic atrial [...] Stage 3b chronic kidney disease (HCC) (CMS/HCC) Hypercholesteremia (CMS/HCC) Pure hypercholesterolemia documented [facility] this encounter [facility] Consultation (Routine) - Pending Review Specialty Diagnoses / Procedures Referred By Oliva t Referred To Contact Nephrology Diagnoses Hypertensive heart disease with heart failure (CMS/HCC) Stage 3b chronic kidney disease (HCC) (CMS/HCC) Procedures NE OFFICE/OUTPATIENT NEW HIGH MDM 60 MINUTES Shell Hemphill NP [address] [place] [address] Jimmy Wilde MD [address] [place] [address] Referral ID Status Reason Start Date Expiration Date Visits Requested Visits Authorized [id number] Pending Review Specialty Services Required 10/14/2023 04/11/2024 1 1 Scheduling Instructions Please include OV note from today 10/13 [facility] Summary Purpose Family History No Family History Records FoundNo Family History Records FoundNo Family History Records FoundNo Family History Records FoundNo Family History Records Found Advance Directives No Advanced Directives Records FoundNo Advanced Directives Records FoundNo Advanced Directives Records FoundNo Advanced Directives Records FoundNo Advanced Directives Records Found Hospital Course Note MR#: [id number] [facility] Pt. Name: Jenifer Hernandez Admitted: 12/17/2018 [...] content not included)... Note MR#: [id number] I [facility] Pt. Name: Jenifer Hernandez Admitted: 01/05/2019 Discharged: 01/14/2019 Date of : 1940 Physician: Amy Head MD DISCHARGE SUMMARY PRIMARY CARE PHYSICIAN: Edu Odonnell. ADMITTING DIAGNOSES: 1. Acute kidney injury on chronic kidney disease. 2. Drug-induced symptomatic severe bradycardia with hemodynamic compromise. DISCHARGE DIAGNOSES: 1. Drug-induced symptomatic severe bradycardia with hemodynamic compromise. 2. 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 [id number]-gv-xflyxhy biventricular systolic and diastolic heart failure exacerbation. 4. Severe pulmonary hypertension. 5. Severe tricuspid regurgitation. 6. Bilateral pleural effusion. 7. Chronic atrial fibrillation. 8. Chronic anticoagulation. 9. Iron deficiency normocytic anemia. 10. Physical deconditioning. HOSPITAL COURSE: She presented to the ED with complaints of exertional dizziness and lightheadedness for 2 days with being recently discharge (more content not included)... Note MR#: [id number] [facility] Pt. Name: Jenifer Hernandez Surgery Date: 12/19/2018 Room #: [id number] Date of : 1940 PROCEDURE NOTE ATTENDING: [...] not included)... Procedure Findings Note MR#: [id number] [facility] Pt. Name: Jenifer Hernandez Surgery Date: 12/19/2018 Room #: [id number] Date of : 1940 PROCEDURE NOTE ATTENDING: [...] section and content) DATE CREATED AUTHOR 04/10/2019 [facility] DATE CREATED AUTHOR AUTHOR'S ORGANIZ ATION 05/07/2021 [facility] DATE CREATED AUTHOR AUTHOR'S ORGANIZ ATION 02/07/2022 [facility] DATE CREATED AUTHOR AUTHOR'S ORGANIZ ATION 01/12/2024 [facility] EPIC DATE CREATED AUTHOR AUTHOR'S ORGANIZ ATION 01/15/2024 [facility] Reason for Visit (unrecogniz ed section and content) Reason Onset Date Comments Med Refill 11/25/2023 Reason Comments Follow-up Reason Comments Follow-up NEW MEDS FROM [facility] Reason Onset Date Comments Med Refill 02/20/2024 Reason Comments Med Refill Care Teams (unrecognized sec tion and content) Access Director Relationship Specialty Start Date End Date Keith Foley MD [address] [place] [phone] PCP - General Family Medicine 10/02/23 Shell Hemphill NP [address] [place] [address] Nurse Practitioner Family Medicine 10/02/23 Access Director Relationship Specialty Start Date End Date Keith Foley MD [address] [place] [phone] PCP - General Family Medicine 10/02/23 Shell Hemphill NP [address] [place] [address] Nurse Practitioner Family Medicine 10/02/23 Access Director Relationship Specialty Start Date End Date Keith Foley MD [address] [place] [phone] PCP - General Family Medicine 10/02/23 Shell Hemphill NP [address] [place] [address] Nurse Practitioner Family Medicine 10/02/23 Access Director Relationship Specialty Start Date End Date Keith Foley MD [address] [place] [phone] PCP - General Family Medicine 10/02/23 Shell Hemphill NP [address] [place] [address] Nurse Practitioner Family Medicine 10/02/23 Access Director Relationship Specialty Start Date End Date Keith Foley MD [address] [place] [phone] PCP - General Family Medicine 10/02/23 Shell Hemphill NP [address] [place] [address] Nurse Practitioner Family Medicine 10/02/23 Access Director Relationship Specialty Start Date End Date Keith Foley MD [address] [place] [address] PCP - General Family Medicine 10/02/23 Shell Hemphill NP [address] [place] [address] Nurse Practitioner Family Medicine 10/02/23 Access Director Relationship Specialty Start Date End Date Keith Foley MD [address] [place] [address] PCP - General Family [facility] 10/02/23 Shell Hemphill NP [address] [place] [address] Nurse Practitioner Family [facility] 10/02/23 Access Director Relationship Specialty Start Date End Date Keith Foley MD [address] [place] [address] PCP - General Family Medicine 10/02/23 Shell Hemphill NP [address] [place] [phone] Nurse Practitioner Family Medicine 10/02/23 FOR RECORDS PERTAINING TO PATIENTS WHO [...] BE BASED ON THE PRIMARY CLINICAL RECORDS. [facility], [facility]. provides no warranty or guarantee of the accuracy or completeness of information in this document.
[2024-05-13 11:11] LABS: Basophils Percent Auto 0.3 % (0.2-2.0); Eosinophils Absolute Auto 0.1 10^3/uL (0.0-0.7); Hemoglobin 12.7 g/dL (12.0-16.0); Immature Granulocytes Abs Auto 0.01 10^3/uL (0.00-0.03); Immature Granulocytes Pct Auto 0.2 % (0.0-0.5); Lymphocytes Absolute Auto 1.5 10^3/uL (1.2-3.8); Lymphocytes Percent Auto 25.7 % (20.5-60.0); Mean Corpuscular HGB Conc 33.4 g/dL (29.9-35.2); Mean Corpuscular Hemoglobin 33.3 pg (26.7-34.0); Mean Corpuscular Volume 99.7 fL (81.0-99.0); Neutrophils Absolute Auto 3.4 10^3/uL (1.4-6.5); Neutrophils Percent Auto 55.8 % (43.0-75.0); Platelet Count 161 10^3/uL (150-450); Red Blood Count 3.81 10^6/uL (4.20-5.40); Red Cell Distribution Width 13.8 % (11.0-15.0)
[2024-05-13 11:16] LABS: Bilirubin Urine NEGATIVE (NEGATIVE); Blood Urine MODERATE (NEGATIVE); Clarity Urine CLEAR (CLEAR); Color Urine LT. YELLOW (YELLOW); Glucose Urine UA NEGATIVE (NEGATIVE); Ketones Urine NEGATIVE (NEGATIVE); Leukocyte Esterase Urine TRACE (NEGATIVE); Nitrite Urine NEGATIVE (NEGATIVE); Protein Urine 30 mg/dL (NEG/TRACE); Urobilinogen Urine 0.2 EU/dL (0.2-1.0)
[2024-05-13 11:17] LABS: Urine Microscopic Indicated YES
[2024-05-13 11:19] LABS: Creatinine Urine Random 120.25 mg/dL (20.00-300.00); Microalbum Creatinine Ratio Ur 275.2 mg/g (0.0-29.9); Microalbumin Urine Random 33.1 mg/dL (<=30.0)
[2024-05-13 11:33] LABS: RBC Urine 0-2 #/HPF (0-2)
[2024-05-13 11:34] LABS: Bacteria Urine TRACE #/HPF (NONE SEEN); Cast Seen? SEEN #/LPF (NONE SEEN); Crystals Seen? None Seen #/HPF (None Seen); Hyaline Casts Urine MODERATE; Mucus Urine TRACE (NONE SEEN); Squamous Epithelial Cell Urine FEW #/LPF (NONE/RARE); Urine Culture Indicated NO
[2024-05-13 12:02] LABS: Alanine Aminotransferase 22 U/L (14-59); Alkaline Phosphatase 120 U/L (46-116); Anion Gap 11.2; Aspartate Amino Transferase 24 U/L (15-37); Calcium 9.4 mg/dL (8.5-10.1); Chloride 103 mmol/L (98-107); Chol HDL Ratio 1.9; Cholesterol 114 mg/dL (<=200); Estimated GFR (African America 34 (>=60 mL/min/1.73m^2); Estimated GFR (Non-African Ame 28 (>=60 mL/min/1.73m^2); Glucose 136 mg/dL (74-106); HDL Cholesterol 59 mg/dL (40-60); Potassium 4.2 mmol/L (3.5-5.1); Sodium 140 mmol/L (136-145); Thyroid Stimulating Hormone 1.865 uIU/mL (0.358-3.740); Triglycerides 70 mg/dL (<=150)
[2024-05-13 12:18] LABS: Free T4 1.17 ng/dL (0.76-1.46)
== END 2024-05-13 10:40 | disposition home or self-care (01) ==
LOC: LAB 10:41
PROVIDERS: PCP Nurse Practitioner; Visit Provider Nurse Practitioner
DX: E78.2 Mixed hyperlipidemia (principal); K21.9 Gastro-esophageal reflux disease without esophagitis; I50.32 Chronic diastolic (congestive) heart failure; I48.20 Chronic atrial fibrillation, unspecified; N18.32 Chronic kidney disease, stage 3b; I11.0 Hypertensive heart disease with heart failure
CPT/HCPCS: 36415; 80053; 80061; 81001; 82043; 82570; 84439; 84443; 85025

== ENCOUNTER 2024-06-09 16:39 | Emergency (ER) | payer MEDICARE, OTHER, SELFPAY ==
[2024-06-09 16:50] VITALS: BP 144/90; PULSE 87; TEMP 36.6; O2SAT 96; BMI 27.5
--- NOTE | 2024-06-09 17:03 | ED_ITS ---
HPI HPI - Extremity Injury (Lower) General Chief Complaint: Extremity Injury, Lower Stated Complaint: ANGE PAIN Time Seen by Provider: 06/09/24 16:49 Source: patient Mode of arrival: Wheelchair History of Present Illness HPI Narrative: 84 year old female presents to the ED for pain to her left hip/groin. Onset was this morning while walking down steps. She felt a pop in her hip while walking. She now has difficulty ambulating. She only has pain when applying weight to the left leg. Denies pain to her lower back, knee, ankle. Denies falling. Denies N/T. She is accompanied by family. She is declining medication for discomfort at this time. Related Data Home Medications ?Medication ?Instructions ?Recorded ?Confirmed atorvastatin 20 mg tablet 20 mg 06/09/24 bumetanide 2 mg tablet mg 06/09/24 isosorbide mononitrate 30 mg mg PO 06/09/24 tablet,extended release 24 hr metoprolol tartrate 100 mg tablet mg 06/09/24 potassium chloride 20 mEq meq PO 06/09/24 tablet,extended release(part/cryst) rivaroxaban 15 mg tablet (Xarelto) mg 06/09/24 spironolactone 25 mg tablet mg 06/09/24 Allergies Allergy/AdvReac Type Severity Reaction Status Date / Time Penicillins Allergy rash Verified 06/09/24 16:49 Opioid HPI Opioid Management Most Recent Pain and Opioid Data: No Data to Display Review of Systems ROS Constitutional Denies: fever or chills Cardiovascular Denies: chest pain Respiratory Denies: shortness of breath Gastrointestinal Denies: abdominal pain Genitourinary Denies: painful urination Musculoskeletal Reports: joint pain (left hip); Denies: back pain or neck pain PFSH PFSH Social History Little interest or pleasure in doing things: not at all Feeling down, depressed, or hopeless: not at all Exam Constitutional Vital Signs, click to edit/add: Last Vital Signs Temp 97.8 F 06/09/24 16:50 Pulse 87 06/09/24 16:50 Resp 18 06/09/24 16:50 BP 144/90 H 06/09/24 16:50 Pulse Ox 96 06/09/24 16:50 O2 Del Method Room Air 06/09/24 16:50 Common normals: no apparent distress and oriented x3 General appearance: cooperative Eye Common normals: conjunctivae normal and no scleral icterus Neck & C-Spine Common normals: supple Chest Chest: symmetrical chest wall rise Respiratory Common normals: normal respiratory effort Effort & inspection: able to speak in complete sentences and symmetric chest movement Cardio Common normals: regular rate Peripheral pulses: posterior tibial pulses present and dorsalis pedis pulses present Extremity Other: Tenderness to left hip area. No obvious deformity. No swelling, bruising, or wounds noted. Distal sensation intact. Decreased ROM due to pain. Neuro Common normals: oriented x3 and moves all extremities Sensorium/orientation: awake and alert Speech: speech normal Course Vital Signs Vital signs: Vital Signs Temperature 97.8 F 06/09/24 16:50 Pulse Rate 87 06/09/24 16:50 Respiratory Rate 18 06/09/24 16:50 Blood Pressure 144/90 H 06/09/24 16:50 Pulse Oximetry 96 06/09/24 16:50 Oxygen Delivery Method Room Air 06/09/24 16:50 Temperature 97.8 F 06/09/24 16:50 Pulse Rate 87 06/09/24 16:50 Respiratory Rate 18 06/09/24 16:50 Blood Pressure 144/90 H 06/09/24 16:50 Pulse Oximetry 96 06/09/24 16:50 Oxygen Delivery Method Room Air 06/09/24 16:50 MDM - Extremity Injury (Lower) MDM Narrative Medical decision making narrative: X-rays were negative for acute findings. The patient was able to ambulate here in the ED. She declined medication for her discomfort here; she prefers to take Tylenol at home. Follow up with pcp for a recheck, further evaluation and treatment. Medical Records Attestation: I reviewed the patient's medical records. Imaging Data XR left hip/pelvis: Attestation: I have reviewed the pertinent imaging results. Radiologist's impression: No acute osseous abnormality. Mild to moderate bilateral hip osteoarthritis. Discharge Plan Discharge Chief Complaint: Extremity Injury, Lower Clinical Impression: Acute pain of left hip Patient Disposition: Home, Self-Care Time of Disposition Decision: 17:36 Condition: Good Mode of Transportation: Private Vehicle Prescriptions / Home Meds: No Action atorvastatin 20 mg tablet 20 mg bumetanide 2 mg tablet metoprolol tartrate 100 mg tablet isosorbide mononitrate 30 mg tablet extended release 24 hr PO spironolactone 25 mg tablet potassium chloride 20 mEq tablet,ER particles/crystals PO Xarelto 15 mg tablet Print Language: Maltese Instructions: Hip Pain (ED) Additional Instructions: Return to the ER for worsening symptoms. Referrals: Allyssa Baez NP [Primary Care Provider] - 1 week
== END 2024-06-09 17:52 | disposition home or self-care (01) ==
PROVIDERS: Emergency Provider Emergency Medicine; PCP Nurse Practitioner
DX: M25.552 Pain in left hip (principal); M16.0 Bilateral primary osteoarthritis of hip
CPT/HCPCS: 73502; 99283

== ENCOUNTER 2024-08-19 09:49 | Outpatient (OUT) | payer MEDICARE, OTHER, SELFPAY ==
--- OUTSIDE RECORDS SUMMARY | 2024-08-19 09:50 | XMS_ITS | Encounter Summary ---
Author Organization [facility] Address [address] [place] [address] Care Team Providers Care Aurist Name Role Phone Shaikh SAIGE Ruiz Primary Care Provider [phone] Keith Foley MD Primary Care Provider [phone] Sarah Hemphill NP Unavailable [phone] Encounter Details Date Type Department Care Team (Late Contact Info) Description 05/22/2023 Orders Only [facility] [address] [place] [address] Leo Flores MD [address] [place] [address] Social History Tobacco Use Types Packs/Day Years Used Date Smoking Tobacco: Never Passive Smoke Exposure: Never Smokeless Tobacco: Never Alcohol Use Standard Drinks/Week Comments Never 0 (1 standard drink = 0.6 oz pur e alcohol) PHQ-2 Answer Date Recorded Patient Health Questionnaire-2 Score 0 05/21/2023 Comments Unknown Sex and Gender Information Value Date Recorded Sex Assigned at Not on file Legal Sex Female 8:34 PM EDT Gender Identity Not on file Sexual Orientation Not on file documented as of this encounter Plan of Treatment Upcoming Encounters Date Type Department Care Team (Late Contact Info) Description 10/27/2024 9:40 AM EDT [facility] [address] [place] [address] Allyssa Baez NP [address] [place] [phone] 07/26/2025 10:00 AM EDT Office Visit [facility] [address] [place] [address] Allyssa Baez NP [address] [place] [address] documented as of this encounter Procedures Procedure Name Priority Date/Time Associated Diagnosis Comments ECHOCARDIOGRAM WITH DOPPLER IF INDICATED Routine 05/22/2023 2:45 PM EDT documented in this encounter Results * ECHOCARDIOGRAM WITH DOPPLER IF INDICATED (05/22/2023 2:45 PM EDT) Anatomical Region Laterality Modality Radiographic Maia ging Leo Flores MD IMG XR PROCEDURES Final Resu lt documented in this encounter Visit Diagnoses Not on filedocumented in this encounter Care Teams Aurist Relationship Specialty Start Date End Date Shaikh Ruiz MD [address] [place] [phone] PCP - General Internal Medicine 04/25/23 10/01/23 Keith Foley MD [address] [place] [phone] PCP - General Family Medicine 10/02/23 Sarah Hemphill NP [address] [place] [phone] Nurse Practitioner Family Medicine 10/02/23 documented as of this encounter
--- OUTSIDE RECORDS SUMMARY | 2024-08-19 09:50 | XMS_ITS | Encounter Summary ---
Author Organization [facility] Address [address] [place] [address] Care Team Providers Care Computer Aided Drafter Name Role Phone Shaikh SAIGE Ruiz Primary Care Provider [phone] Keith Foley MD Primary Care Provider [phone] Sarah Hemphill NP Unavailable [phone] Encounter Details Date Type Department Care Team (Late Contact Info) Description 05/22/2023 Clinisync Result Encounter [facility] External Department Unsolicited Provider, Generic External Data Social History Tobacco Use Types Packs/Day Years [...] Encounters Date Type Department Care Team (Late st Contact Info) Description 10/27/2024 9:40 AM EDT Office Visit [facility] [address] [place] [phone] Allyssa Baez NP [address] [place] [address] 07/26/2025 10:00 AM EDT Office Visit [facility] [address] [place] [phone] Allyssa Baez, JEFFERY [address] [place] [address] documented as of this encounter Procedures Procedure Name Priority Date/Time Associated Diagnosis Comments CA ECHO DOPPLER COMPLETE 05/22/2023 2:20 PM EDT documented in this encounter Results * CA ECHO DOPPLER COMPLETE (05/22/2023 2:20 PM EDT) Anatomical Region Laterality Modality Other 05/22/2023 2:20 PM EDT Narrative 05/22/2023 2:21 PM EDT [address] [address] Cardiology Report Signed Patient: RICK HERNANDEZ MR#: [id number] : 1940 Acct:[id number] Age/Sex: 83 / F ADM Date: 05/22/23 Loc: [place] Attending Dr: HERBER ALLEN Ordering Physician: HERBER ALLEN Date of Service: 05/22/23 Procedure(s): CA echo doppler complete Accession Number(s): [id number] cc: Shaikh Missy Ruiz; HERBER ALLEN Patient Name: RICK HERNANDEZ MR#: [id number] : 1940 Exam Date: 05/22/2023 Ordering Doctor: DR HERBER ALLEN M.D. ECHOCARDIOGRAM REPORT PROCEDURE: CA ECHO DOPPLER COMPLETE INDICATIONS: Chest pain, dyspnea, CABGx4, atrial fibrillation, hypertension COMPARISON: None. DESCRIPTION: COMPLETE ECHOCARDIOGRAM Real-time transthoracic echocardiography with 2D, M-mode, spectral and color flow Doppler performed. QUALITY: Technical quality was good. 64 , 160#, BSA 1.78 m2, BP 144/68 LEFT VENTRICLE: Normal chamber size. Normal left ventricular wall thickness. D-shaped septum consistent with right ventricular pressure and volume overload. LV EF: Global left ventricular systolic function is hyperdynamic; visually estimated ejection fraction is 65 to 70% DIASTOLIC: Not adequately assessed due to heart rhythm. ATRIAL SEPTUM: Visually appears intact. LEFT ATRIUM: Severe dilatation. RIGHT ATRIUM: Severe dilatation. RIGHT VENTRICLE: Normal chamber size. Normal right ventricular systolic function. TRICUSPID VALVE: Normal mobility and thickness. Moderate to severe regurgitation. Doppler studies reveal severely (>60) elevated right sided pressures. RVSP 67 mmHg MITRAL VALVE: Mildly thickened with normal mobility. No evidence of mitral valve stenosis. There is no mitral annular calcification. Moderate mitral regurgitation. AORTIC VALVE: Normal trileaflet appearance. Moderately calcified aortic valve with diminished mobility. No significant mitral stenosis. Mild aortic regurgitation. AORTIC ROOT: Normal diameter and appearance. PULMONIC VALVE: Normal thickness and mobility. No stenosis. Mild to moderate regurgitation. PERICARDIUM: No evidence of pericardial effusion. IVC: IVC is dilated (2.6 cm), does not collapse. CONCLUSION: 1. Global left ventricular systolic function is hyperdynamic; visually estimated ejection fraction is 65 to 70% 2. Normal right ventricular size and systolic function 3. Severe biatrial enlargement 4. Moderate to severe tricuspid regurgitation 5. Severely elevated right ventricular systolic pressure; RVSP 67 mmHg 6. Moderate mitral regurgitation 7. Mild aortic valve regurgitation 8. Mild to moderate pulmonic regurgitation Adult Echocardiography Procedure Report Left Ventricle LVEDD (3.7 - 5.6 cm): 4.32 cm LVESD (2.2 - 4.0 cm): 2.93 cm LVIVS thickness (0.6 - 1.2 cm): 1.01 cm LVPW thickness (0.5 - 1.0 cm): 0.95 cm LVOT Max Gradient: 3.02 mm[Hg] LVOT Area (cm2): 0.87 m/s Peak Velocity (LVOT): 0.87 m/s Mean Velocity (LVOT): 0.67 m/s LVOT Diameter 1.60 cm Left Atrium LA Volume Index (2D A2C): 81.31 ml/m2 Left Atrium Systolic Dimension: 4.92 cm Mitral Valve Mitral Valve E-Wave Peak Velocity: 1.09 m/s Right Ventricle Aorta AO Root Diam: 3.28 cm Ascending Ao Diam: 2.85 cm Aortic Valve AoV Area (Peak Robin): 1.05 cm2, 1.05 cm2 AoV Area (VTI): 1.09 cm2, 1.09 cm2 Peak Velocity(Antegrade Flow): 1.65 m/s Peak Gradient(Antegrade Flow): 10.89 mm[Hg] Mean Velocity(Antegrade Flow): 1.13 m/s Mean Gradient(Antegrade Flow): 6.02 mm[Hg] Velocity Time Integral: 36.02 cm Tricuspid Valve Peak Velocity (Regurgitant Flow): 3.06 m/s, 3.60 m/s Pulmonic Valve Peak Velocity: 0.97 m/s Peak Gradient: 4.18 mm[Hg], 3.35 mm[Hg] Right Atrium Right Atrium Systolic Pressure: 166.14 ml, 166.14 ml Dictated by: Christi Ravi M.D. on 05/22/2023 at 14:13 Approved by: Christi Ravi M.D. on 05/22/2023 at 14:20 Dictated By: Christi Ravi M.D. Signed By: 05/22/23 1421 DD/ 1420 TD/TT: Warehouse Distribution Specialist: Procedure Note Radiology, Radiologist, - 05/22/2023 [place] [address] Cardiology Report Signed Patient: RICK HERNANDEZ SMR#: [id number] : 1940cct:[id number] Age/Sex: 83 / FADM Date: 05/22/23 Loc: [place] Attending Dr: HERBER ALLEN Ordering Physician: HERBER ALLEN Date of Service: 05/22/23 Procedure(s): CA echo doppler complete Accession Number(s): [id number] cc: Shaikh Missy Ruiz; HERBER ALLEN Patient Name: RICK HERNANDEZ MR#: [id number] : 1940 Exam Date: 05/22/2023 Ordering Doctor: DR HERBER ALLEN M.D. ECHOCARDIOGRAM REPORT PROCEDURE: CA ECHO DOPPLER COMPLETE INDICATIONS: Chest pain, dyspnea, CABGx4, atrial fibrillation, hypertension COMPARISON: None. DESCRIPTION: COMPLETE ECHOCARDIOGRAM Real-time transthoracic echocardiography with 2D, M-mode, spectral and color flow Dopplerperformed. QUALITY: Technical quality was good. 64 , 160#, BSA 1.78 m2, BP144/68 LEFT VENTRICLE: Normal chamber size. Normal left ventricular wall thickness. D-shaped septum consistent with right ventricular pressure and volume overload. LV EF: Global left ventricular systolic function is hyperdynamic;visually estimated ejection fraction is 65 to 70% DIASTOLIC: Not adequately assessed due to heart rhythm. ATRIAL SEPTUM: Visually appears intact. LEFT ATRIUM: Severe dilatation. RIGHT ATRIUM: Severe dilatation. RIGHT VENTRICLE: Normal chamber size. Normal right ventricularsystolic function. TRICUSPID VALVE: Normal mobility and thickness. Moderate to severe regurgitation. Doppler studies reveal severely (>60) elevated right sided pressures. RVSP 67 mmHg MITRAL VALVE: Mildly thickened with normal mobility. No evidence of mitral valve stenosis. There is no mitral annular calcification. Moderate mitral regurgitation. AORTIC VALVE: Normal trileaflet appearance. Moderately calcifiedaortic valve with diminished mobility. No significant mitral stenosis. Mildaortic regurgitation. AORTIC ROOT: Normal diameter and appearance. PULMONIC VALVE: Normal thickness and mobility. No stenosis. Mild to moderate regurgitation. PERICARDIUM: No evidence of pericardial effusion. IVC: IVC is dilated (2.6 cm), does not collapse. CONCLUSION: 1. Global left ventricular systolic function is hyperdynamic; visually estimated ejection fraction is 65 to 70% 2. Normal right ventricular size and systolic function 3. Severe biatrial enlargement 4. Moderate to severe tricuspid regurgitation 5. Severely elevated right ventricular systolic pressure; RVSP 67 mmHg 6. Moderate mitral regurgitation 7. Mild aortic valve regurgitation 8. Mild to moderate pulmonic regurgitation Adult Echocardiography Procedure Report Left Ventricle LVEDD (3.7 - 5.6 cm): 4.32 cm LVESD (2.2 - 4.0 cm): 2.93 cm LVIVS thickness (0.6 - 1.2 cm): 1.01 cm LVPW thickness (0.5 - 1.0 cm): 0.95 cm LVOT Max Gradient: 3.02 mm[Hg] LVOT Area (cm2): 0.87 m/s Peak Velocity (LVOT): 0.87 m/s Mean Velocity (LVOT): 0.67 m/s LVOT Diameter 1.60 cm Left Atrium LA Volume Index (2D A2C): 81.31 ml/m2 Left Atrium Systolic Dimension: 4.92 cm Mitral Valve Mitral Valve E-Wave Peak Velocity: 1.09 m/s Right Ventricle Aorta AO Root Diam: 3.28 cm Ascending Ao Diam: 2.85 cm Aortic Valve AoV Area (Peak Robin): 1.05 cm2, 1.05 cm2 AoV Area (VTI): 1.09 cm2, 1.09 cm2 Peak Velocity(Antegrade Flow): 1.65 m/s Peak Gradient(Antegrade Flow): 10.89 mm[Hg] Mean Velocity(Antegrade Flow): 1.13 m/s Mean Gradient(Antegrade Flow): 6.02 mm[Hg] Velocity Time Integral: 36.02 cm Tricuspid Valve Peak Velocity (Regurgitant Flow): 3.06 m/s, 3.60 m/s Pulmonic Valve Peak Velocity: 0.97 m/s Peak Gradient: 4.18 mm[Hg], 3.35 mm[Hg] Right Atrium Right Atrium Systolic Pressure: 166.14 ml, 166.14 ml Dictated by: Christi Ravi M.D. on 05/22/2023 at 14:13 Approved by: hCristi Ravi M.D. on 05/22/2023 at 14:20 Dictated By: Christi Ravi M.D. Signed By:05/22/23 1421 DD/ 1420 TD/TT: Warehouse Distribution Specialist: us Generic External Data Provider [facility] Final Result documented in this encounter Visit Diagnoses Not on filedocumented in this encounter Care Teams Computer Aided Drafter Relationship Specialty Start Date End Date Shaikh Ruiz MD [address] [place] [address] PCP - General Internal Medicine 04/25/23 10/01/23 Keith Foley MD [address] [place] [address] PCP - General Family Medicine 10/02/23 Sarah Hemphill NP [address] [place] [phone] Nurse Practitioner Family Medicine 10/02/23 documented as of this encounter
--- OUTSIDE RECORDS SUMMARY | 2024-08-19 09:50 | XMS_ITS | Encounter Summary ---
Author Organization [facility] Address [address] [place] [address] Care Team Providers Care Hat And Cap Parts Cutter Hand Name Role Phone Shaikh SAIGE Ruiz Primary Care Provider [phone] Keith Foley MD Primary Care Provider [phone] Sarah Hemphill [employer] Unavailable [phone] Reason for Visit * Reason Comments Med Refill Encounter Details Date Type Department Care Team (Latest Contact Info) Description 05/09/2023 Refill [facility] Shaikh Ruiz MD [address] [place] [address] Hypokalemia Social History Tobacco Use Types Packs/Day Years Used Date Smoking Tobacco: Never Smokeless Tobacco: Never Alcohol Use Standard Drinks/Week Comments Never 0 (1 standard drink = 0.6 oz pur e alcohol) PHQ-2 Answer Date Recorded Patient Health Questionnaire-2 Score 0 04/25/2023 Comments Unknown Sex and Gender Information Value Date Recorded Sex Assigned at Not on file Legal Sex Female 8:34 PM EDT Gender Identity Not on file Sexual Orientation Not on file documented as of this encounter Miscellaneous Notes * Telephone Encounter - Shaikh Joseph MD - 05/13/2023 9:15 AM EDT Approving, but needs appt for additional refills. documented in this encounter Plan of Treatment Upcoming Encounters Date Type Department Care Team (Late st Contact Info) Description 10/27/2024 9:40 AM EDT Office Visit [facility] [address] [place] [address] Allyssa Baez, JEFFERY [address] [place] [address] 07/26/2025 10:00 AM EDT Office Visit [facility] [address] [place] [address] Allyssa Baez, JEFFERY [address] [place] [address] documented as of this encounter Visit Diagnoses Diagnosis Hypokalemia Hypopotassemia documented in this encounter Care Teams Hat And Cap Parts Cutter Hand Relationship Specialty Start Date End Date Shaikh Ruiz MD [address] [place] [address] PCP - General Internal Medicine 04/25/23 10/01/23 Keith Foley MD [address] [place] [address] PCP - General Family Medicine 10/02/23 Sarah Hemphill NP [address] [place] [address] Nurse Practitioner Family Medicine 10/02/23 documented as of this encounter
--- OUTSIDE RECORDS SUMMARY | 2024-08-19 09:51 | XMS_ITS | Encounter Summary ---
Author Organization [facility] Address [address] [place] [address] Care Team Providers Care Tucking Machine Operator Name Role Phone Shaikh SAIGE Ruiz Primary Care Provider [phone] Keith Foley MD Primary Care Provider [phone] Sarah Hemphill NP Unavailable [phone] Encounter Details Date Type Department Care Team (Late Contact Info) Description 06/03/2023 [facility] Only [facility] [address] [place] [address] Leo Flores MD [address] [place] [address] Social History Tobacco Use Types [...] 10/27/2024 9:40 AM EDT Office Visit [facility] [address] [place] [address] Allyssa Baez NP [address] [place] [address] 07/26/2025 10:00 AM EDT Office Visit [facility] [address] [place] [address] Allyssa Baez NP [address] [place] [phone] documented as of this encounter Procedures Procedure Name Priority Date/Time Associated Diagnosis Comments STRESS CARDIAC STRESS/LEXISCAN Routine 05/22/2023 1:48 PM EDT documented in this encounter Results * STRESS CARDIAC STRESS/LEXISCAN (05/22/2023 1:48 PM EDT) Anatomical Region Laterality Modality Radiographic Maia ging Leo Flores MD IMG XR PROCEDURES Final Resu lt documented in this encounter Visit Diagnoses Not on filedocumented in this encounter Care Teams Tucking Machine Operator Relationship Specialty Start Date End Date Shaikh Ruiz MD [address] [place] [address] PCP - General Internal Medicine 04/25/23 10/01/23 Keith Foley MD [address] [place] [address] PCP - General Family Medicine 10/02/23 Sarah Hemphill NP [address] [place] [address] Nurse Practitioner Family Medicine 10/02/23 documented as of this encounter
--- OUTSIDE RECORDS SUMMARY | 2024-08-19 09:51 | XMS_ITS | Encounter Summary ---
Author Organization [facility] Address [address] [place] [address] Care Team Providers Care Currency Examiner Name Role Phone Shaikh SAIGE Ruiz Primary Care Provider [phone] Keith Foley MD Primary Care Provider [phone] Sarah Hemphill NP Unavailable [phone] Encounter Details Date Type Department Care Team (Late Contact Info) Description 05/23/2023 Clinisync Result Encounter [facility] External Department Unsolicited [...] EDT Office Visit [facility] [address] [place] [phone] Allyssa Baez NP [address] [place] [address] 07/26/2025 10:00 AM EDT Office Visit [facility] [address] [place] [phone] Allyssa Baez, JEFFERY [address] [place] [address] documented as of this encounter Procedures Procedure Name Priority Date/Time Associated Diagnosis Comments NM LANA PERF SPECT REST STR 05/23/2023 2:04 PM EDT documented in this encounter Results * NM LANA PERF SPECT REST STR (05/23/2023 2:04 PM EDT) Anatomical Region Laterality Modality Other 05/23/2023 2:04 PM EDT Narrative 05/23/2023 2:05 PM EDT [address] [address] Nuclear Medicine Report Signed Patient: JENIFER HERNANDEZ MR#: [id number] : 1940 Acct:[id number] Age/Sex: 83 / F ADM Date: 05/22/23 Loc: [place] Attending Dr: HERBER ALLEN Ordering Physician: HERBER ALLEN Date of Service: 05/22/23 Procedure(s): NM lana perf SPECT rest str Accession Number(s): [id number] cc: Shaikh Missy Ruiz; HERBER ALLEN Patient Name: JENIFER HERNANDEZ MR#: [id number] : 1940 Exam Date: 05/22/2023 Ordering Doctor: DR HERBER ALLEN M.D. RADIOLOGY REPORT PROCEDURE: NM LANA PERF SPECT REST STR COMPARISON: None. INDICATIONS: CORONARY ARTERY DISEASE, DYSPNEA TECHNIQUE: Exam Description: Stress/Rest one day protocol gated SPECT Rest Imagin.2 mCi Tc-99m Cardiolite IV on 05/22/2023 Stress Imaging 30.2 mCi Tc-99m Cardiolite IV on 05/22/2023 Exercise Protocol: 0.4 mg Lexiscan given IV Heart Rate (bpm): Rest: 85 Max: 95 PMHR: 70 Blood Pressure: Rest: 128/56 Max: 132/64 Symptoms: Rest and peak stress ECG findings were pending and the exercise portion of the study was pending per attending physician [facility] . For more details please see separate cardiac stress test report. FINDINGS: QUALITY OF STUDY: Excellent. PERFUSION DEFECT: None. LOCATION: N/A SIZE: N/A. SEVERITY: N/A. TYPE: N/A. WALL MOTION: Normal. LV SIZE: Normal. 63 mL. TID / TCD: None; 1.0 LVEF: Normal. Calculated EF 75%. SUMMARY: Myocardial perfusion imaging study is NORMAL. CONCLUSION: 1. No acute or reversible ischemia. 2. Suspect breast attenuation artifact affecting the anterior wall of the heart rather than mild fixed ischemia. 3. Normal wall motion, left ventricle size, and ejection fraction. Dictated by: Karsten Xavier M.D. on 05/23/2023 at 13:14 Approved by: Karsten Xavier M.D. on 05/23/2023 at 14:04 Dictated By: Karsten Xavier M.D. Signed By: 05/23/23 1405 DD/ 1404 TD/TT: Personnel And Payroll Technician: Procedure Note Radiology, Radiologist, MD - 05/23/2023 [place] [address] Nuclear Medicine Report Signed Patient: JENIFER HERNANDEZ SMR#: [id number] : 1940cct:[id number] Age/Sex: 83 / FADM Date: 05/22/23 Loc: [place] Attending Dr: HERBER ALLEN Ordering Physician: HERBER ALLEN Date of Service: 05/22/23 Procedure(s): NM lana perf SPECT rest str Accession Number(s): [id number] cc: Shaikh Missy Ruiz; HERBER ALLEN Patient Name: JENIFER HERNANDEZ MR#: [id number] : 1940 Exam Date: 05/22/2023 Ordering Doctor: DR HERBER ALLEN M.D. RADIOLOGY REPORT PROCEDURE: NM LANA PERF SPECT REST STR COMPARISON: None. INDICATIONS: CORONARY ARTERY DISEASE, DYSPNEA TECHNIQUE: Exam Description: Stress/Rest one day protocol gated SPECT Rest Imagin.2 mCi Tc-99m Cardiolite IV on 05/22/2023 Stress Imaging 30.2 mCi Tc-99m Cardiolite IV on 05/22/2023 Exercise Protocol: 0.4 mg Lexiscan given IV Heart Rate (bpm): Rest: 85 Max: 95 PMHR: 70 Blood Pressure: Rest: 128/56 Max: 132/64 Symptoms: Rest and peak stress ECG findings were pending and the exercise portion ofthe study was pending per attending physician Dr. HIGGINS . For more detailsplease see separate cardiac stress test report. FINDINGS: QUALITY OF STUDY: Excellent. PERFUSION DEFECT: None. LOCATION: N/A SIZE: N/A. SEVERITY: N/A. TYPE: N/A. WALL MOTION: Normal. LV SIZE: Normal. 63 mL. TID / TCD: None; 1.0 LVEF: Normal. Calculated EF 75%. SUMMARY: Myocardial perfusion imaging study is NORMAL. CONCLUSION: 1. No acute or reversible ischemia. 2. Suspect breast attenuation artifact affecting the anterior wall of the heart rather than mild fixed ischemia. 3. Normal wall motion, left ventricle size, and ejection fraction. Dictated by: Karsten Xavier M.D. on 05/23/2023 at 13:14 Approved by: Karsten Xavier M.D. on 05/23/2023 at 14:04 Dictated By: Karsten Xavier M.D. Signed By:05/23/23 1405 DD/ 1404 TD/TT: Personnel And Payroll Technician: Generic External Data Provider [facility] Final Result documented in this encounter Visit Diagnoses Not on filedocumented in this encounter Care Teams Currency Examiner Relationship Specialty Start Date End Date Shaikh Ruiz MD [address] [place] [address] PCP - General Internal Medicine 04/25/23 10/01/23 Keith Foley MD [address] [place] [address] PCP - General Family Medicine 10/02/23 Sarah Hemphill NP [address] [place] [address] Nurse Practitioner Family Medicine 10/02/23 documented as of this encounter
--- OUTSIDE RECORDS SUMMARY | 2024-08-19 09:51 | XMS_ITS | Encounter Summary ---
Author Organization [facility] Address [address] [place] [address] Care Team Providers Care Washing Machine Loader Name Role Phone Keith Foley MD Primary Care Provider [phone] Sarah Hemphill NP Unavailable [phone] Encounter Details Date Type Department Care Team (Late Contact Info) Description 11/29/2023 Clinisync Result Encounter [facility] External Department Unsolicited Provider, Generic External Data Social History Tobacco Use Types Packs/Day Years Used Date Smoking Tobacco: Never Passive Smoke Exposure: Never Smokeless Tobacco: Never Alcohol Use Standard Drinks/Week Comments Never 0 (1 standard drink = 0.6 oz pur e alcohol) PHQ-2 Answer Date Recorded Patient Health Questionnaire-2 Score 1 10/14/2023 Comments Unknown Sex and Gender Information Value Date Recorded Sex Assigned at Not on file Legal Sex Female 8:34 PM EDT Gender Identity Not on file Sexual Orientation Not on file documented as of this encounter Plan of Treatment Upcoming Encounters Date Type Department Care Team (Late Contact Info) Description 10/27/2024 9:40 AM EDT Office Visit [facility] [address] [place] [id number] Allyssa Baez NP [address] [place] [address] 07/26/2025 10:00 AM EDT Office Visit [facility] [address] [place] [phone] Allyssa Baez NP [address] [place] [address] documented as of this encounter Procedures Procedure Name Priority Date/Time Associated Diagnosis Comments CA ECHO DOPPLER COMPLETE 11/29/2023 6:18 PM EDT documented in this encounter Results * CA ECHO DOPPLER COMPLETE (11/29/2023 6:18 PM EDT) Anatomical Region Laterality Modality Other 11/29/2023 6:18 PM EDT Narrative 11/29/2023 6:19 PM EDT [facility] [place] [id number] Cardiology Report Signed Patient: RICK HERNANDEZ MR#: [id number] : 1940 Acct:[id number] Age/Sex: 83 / F ADM Date: 11/29/23 Loc: CARD Attending Dr: HERBER FLORES Ordering Physician: HERBER FLORES Date of Service: 11/29/23 Procedure(s): CA echo doppler complete Accession Number(s): [id number] cc: Shaikh Missy Ruiz; HERBER FLORES Patient Name: RICK HERNANDEZ MR#: [id number] : 1940 Exam Date: 11/29/2023 Ordering Doctor: DR HERBER FLORES M.D. ECHOCARDIOGRAM REPORT PROCEDURE: CA ECHO DOPPLER COMPLETE INDICATIONS: Chronic diastolic congestive heart failure, pulmonary HTN, CABG COMPARISON: None. DESCRIPTION: COMPLETE ECHOCARDIOGRAM Real-time transthoracic echocardiography with 2D, M-mode, spectral and color flow Doppler performed. QUALITY: Technical quality was good. LEFT VENTRICLE: Normal chamber size. Proximal septal hypertrophy (sigmoid septum). Systolic function is normal. LV EF: Normal left ventricular ejection fraction, (>55%). DIASTOLIC: ATRIAL SEPTUM: Visually appears intact. LEFT ATRIUM: Severe dilatation. RIGHT ATRIUM: Severe dilatation. RIGHT VENTRICLE: Moderate dilatation. Normal systolic function. TRICUSPID VALVE: Normal mobility and thickness. No stenosis with moderate regurgitation. Doppler studies reveal moderately (45-60) elevated right sided pressures. RVSP 56 mmHg MITRAL VALVE: Mildly thickened with normal mobility. No evidence of mitral valve stenosis. Mild mitral annular calcification. Mild to moderate mitral regurgitation. AORTIC VALVE: Normal trileaflet appearance. Moderately calcified aortic valve. Mildly diminished mobility. No evidence of aortic valve stenosis. Mild aortic regurgitation. AORTIC ROOT: Normal diameter and appearance. Ascending aorta is normal in size. PULMONIC VALVE: Normal thickness and mobility. No stenosis. Mild regurgitation. PERICARDIUM: No evidence of pericardial effusion. IVC: IVC is dilated (2.4 cm) with no collapse. PLEURA: CONCLUSION: 1. Normal left ventricular size and systolic function. LVEF is 55 to 60%. 2. Moderately dilated right ventricle with normal systolic function. 3. Severe biatrial dilatation. 4. Mild to moderate mitral regurgitation. 5. Moderate tricuspid regurgitation. 6. Mild aortic and pulmonic regurgitation. 7. Moderately elevated right-sided pressures. RVSP is 56 mmHg. 8. No pericardial effusion. Adult Echocardiography Procedure Report Left Ventricle LVEDD (3.7 - 5.6 cm): 4.22 cm LVESD (2.2 - 4.0 cm): 3.00 cm LVIVS thickness (0.6 - 1.2 cm): 1.28 cm LVPW thickness (0.5 - 1.0 cm): 0.92 cm e': 0.15 m/s E - e': 7.08 LVOT Max Gradient: 2.19 mm[Hg] LVOT Area (cm2): 0.74 m/s Peak Velocity (LVOT): 0.74 m/s Mean Velocity (LVOT): 0.53 m/s LVOT Diameter 1.69 cm Left Atrium LA Volume Index (2D A2C): 79.43 ml/m2 Left Atrium Systolic Dimension: 4.78 cm Mitral Valve MV E to A Ratio: 4.08 Mitral Valve A-Wave Peak Velocity: 0.26 m/s Mitral Valve E-Wave Peak Velocity: 1.05 m/s Right Ventricle Aorta AO Root Diam: 2.87 cm Ascending Ao Diam: 2.76 cm Aortic Valve AoV Area (Peak Robin): 1.10 cm2, 1.10 cm2 AoV Area (VTI): 1.43 cm2, 1.43 cm2 Peak Velocity(Antegrade Flow): 1.50 m/s Peak Gradient(Antegrade Flow): 9.03 mm[Hg] Mean Velocity(Antegrade Flow): 0.91 m/s Mean Gradient(Antegrade Flow): 4.11 mm[Hg] Velocity Time Integral: 26.45 cm Tricuspid Valve Peak Velocity (Regurgitant Flow): 3.06 m/s, 3.21 m/s Pulmonic Valve Mean Gradient: 1.68 mm[Hg] Mean Velocity: 0.59 m/s Peak Velocity: 0.99 m/s, 0.92 m/s Peak Gradient: 3.41 mm[Hg], 3.89 mm[Hg] Right Atrium Right Atrium Systolic Pressure: 187.61 ml, 187.61 ml Dictated by: Herber Flores M.D. on 11/29/2023 at 18:14 Approved by: Herber Flores M.D. on 11/29/2023 at 18:18 Dictated By: HERBER FLORES Signed By: 11/29/231818 DD/ 17 TD/TT: Technical Service Rep: Procedure Note Radiology, Radiologist, MD - 12/02/2023 [place] [address] Cardiology Report Signed Patient: RICK HERNANDEZ SMR#: [id number] : 1940cct:[id number] Age/Sex: 83 / FADM Date: 11/29/23 Loc: CARD Attending Dr: HERBER FLORES Ordering Physician: HERBER FLORES Date of Service: 11/29/23 Procedure(s): CA echo doppler complete Accession Number(s): [id number] cc: Shaikh Missy Ruiz; HERBER FLORES Patient Name: RICK HERNANDEZ MR#: [id number] : 1940 Exam Date: 11/29/2023 Ordering Doctor: DR HERBER FLORES M.D. ECHOCARDIOGRAM REPORT PROCEDURE: CA ECHO DOPPLER COMPLETE INDICATIONS: Chronic diastolic congestive heart failure, pulmonaryHTN, CABG COMPARISON: None. DESCRIPTION: COMPLETE ECHOCARDIOGRAM Real-time transthoracic echocardiography with 2D, M-mode, spectral and color flow Dopplerperformed. QUALITY: Technical quality was good. LEFT VENTRICLE: Normal chamber size. Proximal septal hypertrophy(sigmoid septum). Systolic function is normal. LV EF: Normal left ventricular ejection fraction, (>55%). DIASTOLIC: ATRIAL SEPTUM: Visually appears intact. LEFT ATRIUM: Severe dilatation. RIGHT ATRIUM: Severe dilatation. RIGHT VENTRICLE: Moderate dilatation. Normal systolic function. TRICUSPID VALVE: Normal mobility and thickness. No stenosis withmoderate regurgitation. Doppler studies reveal moderately (45-60) elevated rightsided pressures. RVSP 56 mmHg MITRAL VALVE: Mildly thickened with normal mobility. No evidence of mitral valve stenosis. Mild mitral annular calcification. Mild tomoderate mitral regurgitation. AORTIC VALVE: Normal trileaflet appearance. Moderately calcifiedaortic valve. Mildly diminished mobility. No evidence of aortic valve stenosis. Mild aortic regurgitation. AORTIC ROOT: Normal diameter and appearance. Ascending aorta is normalin size. PULMONIC VALVE: Normal thickness and mobility. No stenosis. Mild regurgitation. PERICARDIUM: No evidence of pericardial effusion. IVC: IVC is dilated (2.4 cm) with no collapse. PLEURA: CONCLUSION: 1. Normal left ventricular size and systolic function. LVEF is 55 to 60%. 2. Moderately dilated right ventricle with normal systolic function. 3. Severe biatrial dilatation. 4. Mild to moderate mitral regurgitation. 5. Moderate tricuspid regurgitation. 6. Mild aortic and pulmonic regurgitation. 7. Moderately elevated right-sided pressures. RVSP is 56 mmHg. 8. No pericardial effusion. Adult Echocardiography Procedure Report Left Ventricle LVEDD (3.7 - 5.6 cm): 4.22 cm LVESD (2.2 - 4.0 cm): 3.00 cm LVIVS thickness (0.6 - 1.2 cm): 1.28 cm LVPW thickness (0.5 - 1.0 cm): 0.92 cm e': 0.15 m/s E - e': 7.08 LVOT Max Gradient: 2.19 mm[Hg] LVOT Area (cm2): 0.74 m/s Peak Velocity (LVOT): 0.74 m/s Mean Velocity (LVOT): 0.53 m/s LVOT Diameter 1.69 cm Left Atrium LA Volume Index (2D A2C): 79.43 ml/m2 Left Atrium Systolic Dimension: 4.78 cm Mitral Valve MV E to A Ratio: 4.08 Mitral Valve A-Wave Peak Velocity: 0.26 m/s Mitral Valve E-Wave Peak Velocity: 1.05 m/s Right Ventricle Aorta AO Root Diam: 2.87 cm Ascending Ao Diam: 2.76 cm Aortic Valve AoV Area (Peak Robin): 1.10 cm2, 1.10 cm2 AoV Area (VTI): 1.43 cm2, 1.43 cm2 Peak Velocity(Antegrade Flow): 1.50 m/s Peak Gradient(Antegrade Flow): 9.03 mm[Hg] Mean Velocity(Antegrade Flow): 0.91 m/s Mean Gradient(Antegrade Flow): 4.11 mm[Hg] Velocity Time Integral: 26.45 cm Tricuspid Valve Peak Velocity (Regurgitant Flow): 3.06 m/s, 3.21 m/s Pulmonic Valve Mean Gradient: 1.68 mm[Hg] Mean Velocity: 0.59 m/s Peak Velocity: 0.99 m/s, 0.92 m/s Peak Gradient: 3.41 mm[Hg], 3.89 mm[Hg] Right Atrium Right Atrium Systolic Pressure: 187.61 ml, 187.61 ml Dictated by: Herber Flores M.D. on 11/29/2023 at 18:14 Approved by: Herber Flores M.D. on 11/29/2023 at 18:18 Dictated By: HERBER FLORES Signed By:11/29/231818 DD/ 17 TD/TT: Technical Service Rep: Generic External Data Provider [facility] Final Result documented in this encounter Visit Diagnoses Not on filedocumented in this encounter Care Teams Washing Machine Loader Relationship Specialty Start Date End Date Keith Foley MD [address] [place] [address] PCP - General Family Medicine 10/02/23 Sarah Hemphill NP [address] [place] [address] Nurse Practitioner Family Medicine 10/02/23 documented as of this encounter
--- NOTE | 2024-08-19 09:56 | CA_ITS ---
ECHOCARDIOGRAM REPORT PROCEDURE: CA ECHO DOPPLER COMPLETE INDICATIONS: Diastolic heart failure, Valve disease, Pulm HTN COMPARISON: None. DESCRIPTION: COMPLETE ECHOCARDIOGRAM Real-time transthoracic echocardiography with 2D, M-mode, spectral and color flow Doppler performed. QUALITY: Technical quality was good. LEFT VENTRICLE: Normal chamber size. Mild concentric left ventricular hypertrophy. Left ventricle is hyperdynamic without wall motion abnormalities. Calculated left ventricular ejection fraction is hyperdynamic at 73%. LV EF: 73% DIASTOLIC: Not adequately assessed due to heart rhythm. ATRIAL SEPTUM: Appears intact LEFT ATRIUM: Severe dilatation. RIGHT ATRIUM: Severe dilatation. RIGHT VENTRICLE: Normal chamber size. Right ventricle systolic function appears reduced. TRICUSPID VALVE: Normal mobility and thickness. No stenosis with severe regurgitation. Moderate pulmonary hypertension. RVSP 55mmHg MITRAL VALVE: Normal mobility and thickness. No evidence of mitral valve stenosis. Mild mitral annular calcification. Mild to moderate mitral regurgitation. AORTIC VALVE: Normal trileaflet appearance. Mildly calcified aortic valve. Mildly diminished mobility. Doppler velocity suggest mild aortic valve stenosis. DVI 0.5, TIN 1.5cm2, P/M gradient 11/7mmHg, Peak velocity1.7m/s. Mild aortic regurgitation. AORTIC ROOT: Normal diameter and appearance. PULMONIC VALVE: Normal thickness and mobility. No stenosis. Mild regurgitation. PERICARDIUM: No evidence of pericardial effusion. IVC: Mild dilatation. Measuring 2.4cm with partial collapse. PLEURA: CONCLUSION: Mild concentric left ventricle hypertrophy Hyperdynamic left ventricle without wall motion abnormalities, ejection fraction 73% Severe biatrial dilatation Normal right ventricle size with reduced systolic function Moderate pulmonary hypertension, RVSP 55 mmHg Mild to moderate mitral regurgitation Mild aortic stenosis, mean pressure gradient 7 mmHg, TIN 1.5 cm� Mild aortic root insufficiency Severe tricuspid regurgitation Dilated inferior vena cava with partial respiratory variation consistent with elevated central venous pressure, RAP 15 mmHg Adult Echocardiography Procedure Report Left Ventricle LVEDD (3.7 - 5.6 cm): 3.68 cm LVESD (2.2 - 4.0 cm): 2.38 cm LVIVS thickness (0.6 - 1.2 cm): 1.16 cm LVPW thickness (0.5 - 1.0 cm): 1.27 cm e': 0.14 m/s E - e': 3.86 LVOT Max Gradient: 2.88 mm[Hg] LVOT Area (cm2): 0.85 m/s Peak Velocity (LVOT): 0.85 m/s Mean Velocity (LVOT): 0.64 m/s LVOT Diameter 1.87 cm Left Ventricular Ejection Fraction: 73.11 % Left Atrium LA Volume Index (2D A2C): 86.17 ml/m2 Left Atrium Systolic Dimension: 4.93 cm Mitral Valve MV E to A Ratio: 0.00 MV Max Gradient: MV Mean Gradient: Mitral Valve A-Wave Peak Velocity: 0.96 m/s Mitral Valve E-Wave Peak Velocity: 0.53 m/s Cardiovascular Orifice Area: Right Ventricle RV Internal Diastolic Dimension: 3.95 cm Aorta AO Root Diam: 3.03 cm Ascending Ao Diam: 3.10 cm Aortic Valve AoV Area (Peak Robin): 1.42 cm2, 1.51 cm2 AoV Area (VTI): 1.51 cm2, 1.54 cm2 Deceleration Citrus: 1.96 m/s2 Pressure Half-Time: 465.85 ms Peak Velocity(Antegrade Flow): 1.54 m/s, 1.69 m/s, 1.63 m/s, 1.69 m/s Peak Gradient(Antegrade Flow): 9.45 mm[Hg], 11.39 mm[Hg], 10.67 mm[Hg], 11.39 mm[Hg] Mean Velocity(Antegrade Flow): 1.05 m/s, 1.23 m/s, 1.19 m/s, 1.24 m/s Mean Gradient(Antegrade Flow): 5.16 mm[Hg], 6.72 mm[Hg], 6.24 mm[Hg], 6.85 mm[Hg] Velocity Time Integral: 32.68 cm, 33.45 cm, 32.94 cm, 33.99 cm Tricuspid Valve Peak Velocity (Regurgitant Flow): 2.70 m/s, 3.17 m/s, 3.12 m/s, 3.06 m/s Peak Velocity: Pulmonic Valve Mean Gradient: Mean Velocity: Peak Velocity: 0.96 m/s Peak Gradient: 3.77 mm[Hg], 3.63 mm[Hg] Right Atrium Right Atrium Systolic Pressure: 194.86 ml, 194.86 ml Dictated by: Heather Chacon MD on 08/19/2024 at 18:22 Approved by: Heather Chacon MD on 08/19/2024 at 18:33 Continued Report - Page [facility] [place] [id number]
== END 2024-08-19 09:50 | disposition home or self-care (01) ==
LOC: CARD 09:49
PROVIDERS: PCP Nurse Practitioner; Visit Provider Internal Medicine Interventional Cardiology
DX: I50.32 Chronic diastolic (congestive) heart failure (principal); I27.20 Pulmonary hypertension, unspecified; I36.1 Nonrheumatic tricuspid (valve) insufficiency
CPT/HCPCS: 93306

== ENCOUNTER 2024-11-20 07:54 | Outpatient (OUT) | payer MEDICARE, OTHER, SELFPAY ==
--- OUTSIDE RECORDS SUMMARY | 2024-11-12 10:44 | XMS_ITS | Continuity of Care Document ---
Author Organization [facility] Address [address] [place] [address] Phone Care Team Providers Care Credit Clerk Name Role Phone Bennett Joi LOJA Primary Care Provider [phone] Joi Guajardo DO Attending Provider [phone] Care Teams Patient Care Team Team Status: Active Member Role Status Dates Joi Guajardo DO Primary Care Provider Active Patient Care Team Team Status: Inactive Member Role Status Dates Joi Guajardo DO Primary Care Provider Active S tart: November 12, 2024 End: November 12, 2024 Joi Guajardo DO Attending Provider Active Star t: November 12, 2024 End: November 12, 2024 Chief Complaint and Reason for Visit Chief Complaint Admit Date 3M F/U November 12, 2024 1:51pm Reason for Visit Admit Date Hyperlipidemia, mixed November 12 1:51pm Allergies, Adverse Reactions, Alerts Allergen Type Severity Reaction Last Updated Verified Status Penicillins Allergy Unknown Rash October 1:57pm Yes Active Sulfa (Sulfonamide Antibiotics) Allergy Unknown Rash November 12, 2024 1:57pm Yes Active Social History Smoking Status Status Start Date End Date Date of Observa tion Never smoked tobacco (finding) November 12, 2024 2:04pm Observation Status Observation Response Date of Response Legal Sex Female (finding) Sex Assigned At Female April Family History Relationship Condition Age at Onset Recorded Date/T christian mother Diabetes mellitus Unknown Heart disease Unknown Hypertension Unknown father Heart disease Unknown Hypertension Unknown son Diabetes mellitus Unknown Heart disease Unknown Hypertension Unknown Problems Active Problems Medical Problem Onset Date Status History of bilateral cataract extraction Unknown Active Atrial fibrillation Unknown Active Hyperlipidemia, mixed Unknown Active Chronic diastolic heart failure Unknown Active Chronic kidney disease (CKD) Unknown Act starr Iron deficiency anemia Unknown Active Diabetes mellitus type 2, noninsulin dependent U nknown Active Hypertension Unknown Active Medications Medication Status Dose Units Route Directions Qty Days St art Date Stop Date End Date Instructions Adherence Atorvastati n 20 mg tablet Active 20 MG PO Every evening 90 2024 12:00a m Complies with drug therapy Metoprolol Succinate 100 mg tablet extended release 24 hr Active 100 MG PO Daily 2024 12:00a m Complies with drug therapy Spironolact one 25 mg tablet Active 25 MG PO Daily 2024 12:00a m Complies with drug therapy Isosorbide Dinitrate 30 mg tablet Active 30 MG PO Twice daily 2024 12:00a m allow nitrate-free interval of 12-14 hrs per 24-hr period Complies with drug therapy Ferrous Sulfate 325 mg (65 mg iron) tablet Active 325 MG PO Daily 2024 12:00a m Complies with drug therapy Bumetanide 2 mg tablet Active 2 MG PO Twice daily 2024 12:00a m Complies with drug therapy Pantoprazol e 40 mg tablet,germaine yed release (DR/EC) Active 40 MG PO Daily 2024 12:00a m Complies with drug therapy Albuterol Sulfate 90 mcg/actuati on HFA aerosol inhaler Active 2 PUFF INHALA TION Every 6 hours as needed 2024 12:00a m Complies with drug therapy Rivaroxaban (Xarelto) 15 mg tablet Active 15 MG PO Daily 2024 12:00a m must administer with evening meal Complies with drug therapy Potassium Chloride 20 mEq tablet extended release Active 20 MEQ PO Daily 2024 12:00a m Complies with drug therapy Magnesium Aspart,Citr ate,Oxide 400 mg magnesium capsule Active 400 MG PO daily 2024 12:00a m Complies with drug therapy Vital Signs Vital Reading Result Reference Range Collection Date/Time Height 64 [in_i] November 12, 2024 1:56pm Weight 70.30 kg November 12, 2024 1:56pm Heart Rate 82 /min 60-100 November 12, 2024 1:56pm Respiratory rate 16 /min -October 202024 1:56pm Oxygen saturation by Pulse oximetry 93 % 95-100 November 12, 2024 1:56pm BP Systolic 116 mm[Hg] 100-140 November 12, 2024 1:56pm BP Diastolic 70 mm[Hg] 60-100 November 12, 2024 1:56pm BMI (Body Mass Index) 26.6 kg/m2 2024 1:56pm Advance Directives Advance Directive Response Recorded Date/ Time Advance Directives No June 12, 2 019 7:51am Insurance Providers Guarantor Jenifer Samuel Address [address] [place] [id number] Contact Info. Home Phone: Payer Policy Id Subscriber's Name Subscriber Id Effectiv e Date Expiration Date Medicare [id number] Jenifer Samuel [id number] [facility] Claims [id number] Jenifer Samuel [id number] Encounters Encounter Location(s) Arrival/Admit Date Discharge/Depart Date Provider(s) Departed Physician/Prov ider Office Visit -[facility] Family Medicine El November 12, 2024 1:51pm November 12, 2024 2:43pm Joi Guajardo DO Recent Diagnosis Onset Date Admit Date Hyperlipidemia, mixed Unknown November 12, 2024 1:51pm Assessments Diagnosis Onset Date Resolution Status Admit Date Hyperlipidemia, mixed acute Sep 2024 1:51pm Plan of Treatment Future Tests Future scheduled test information is unavailable Pending Tests Test Name Ordered Date Scheduled Date Comprehensive Metabolic Panel November 12 2:37pm Future Visits Future appointment information is unavailable Referrals to Other Providers Referral information is unavailable Future Procedures Procedure Name Ordered Date Scheduled Date A1C with Estimated Average Glu November 12, 2 025 2:37pm Complete Blood Count Auto Diff November 12, 2 025 2:37pm Lipid Panel November 12, 2024 2:37pm Future Medications Future medication information is unavailable Patient Instructions Patient instructions are unavailable
--- OUTSIDE RECORDS SUMMARY | 2024-11-20 07:56 | XMS_ITS | Encounter Summary ---
Author Organization [facility] Address [address] [place] [address] Care Team Providers Care Sticker On Name Role Phone Shaikh SAIGE Ruiz Primary Care Provider [phone] Keith Foley MD Primary Care Provider [phone] Sarah Hemphill PETROLEUM PRODUCTION ENGINEER Unavailable [phone] Reason for Visit * Reason Comments Med Refill Encounter Details Date Type Department Care Team (Latest Contact Info) Description 05/09/2023 Refill [facility] Shaikh Ruiz MD [address] [address] Hypokalemia Social History Tobacco Use Types Packs/Day [...] documented in this encounter Plan of Treatment Not on file documented as of this encounter Visit Diagnoses Diagnosis Hypokalemia Hypopotassemia documented in this encounter Care Teams Sticker On Relationship Specialty Start Date End Date Shaikh Ruiz MD PCP - General Internal Medicine 04/25/23 10/01/23 Keith Foley MD PCP - General Family Medicine 10/02/23 Sarah Hemphill NP Nurse Practitioner Family Medicine 10/02/23 documented as of this encounter
--- OUTSIDE RECORDS SUMMARY | 2024-11-20 07:56 | XMS_ITS | Clinical Summary ---
Author Organization [facility] Address [address] [place] [address] Care Team Providers Care Student Accounts Coordinator Name Role Phone Keith Foley MD Primary Care Provider [phone] Sarah Hemphill INFECTIOUS DISEASES PHYSICIAN Unavailable [phone] Allergies Active Allergy Reactions Criticality Noted Date Comments Penicillin G 01/18/2019 Sulfa Antibiotics 01/18/2019 Medications rivaroxaban (Xarelto) 15 MG tablet Take 15 mg by mouth in the morning. Take with food.. Active bumetanide (Bumex) 2 MG tabletIndication s:Heart Failure Take 2 mg by mouth in the morning and 2 mg before bedtime. Taking 3mg am and 2mg in the pm. Active magnesium oxide (Mag-Ox) 400 mg tablet 400 mg in the morning. Active potassium chloride CR (Klor-Con M20) 20 MEQ ER tablet Take 20 mEq by mouth in the morning. Do not crush or chew.. Active albuterol HFA (ProAir HFA) 90 mcg/act inhaler Inhale 2 puffs every 4 (four) hours if needed for shortness of breath Active pantoprazole (ProtoNix) 40 MG EC tablet Take 40 mg by mouth in the morning. Take before meals. Active isosorbide mononitrate ER (Imdur) 30 MG 24 hr tablet Take 30 mg by mouth in the morning. 4 Active spironolactone (Aldactone) 25 MG tabletIndication s:Hypertensive heart disease with heart failure (HCC) Take 0.5 tablets (12.5 mg) by mouth in the morning. 15 tablet 11 4 Active atorvastatin (Lipitor) 20 MG tabletIndication s:Hypercholester emia Take 1 tablet (20 mg) by mouth in the evening 90 tablet 1 5 Active cyanocobalamin (Vitamin B-12) 1000 MCG tablet Take 1,000 mcg by mouth Daily Active metoprolol tartrate (Lopressor) 100 MG tabletIndication s:Chronic diastolic heart failure (HCC) Take 1.5 tablets (150 mg) by mouth in the morning and 1.5 tablets (150 mg) before bedtime. 270 tablet 1 5 01/27/20 25 Active Active Problems Problem Noted Date Diagnosed Date Encounter for subsequent [facility] wellness visit (AWV) in Medicare patient 07/23/2024 Assessment & Plan (07/23/2024 6:38 AM EDT): Reviewed Ht/Wt/BMI Recommend eye exam yearly Recommend dental exams twice a year Balance work/leisure activities Exercises is recommended most days of the week (appropriate as chronic conditions allow) Follow up yearly and prn Type 2 diabetes mellitus wit h diabetic chronic kidney disease 07/23/2024 Type 2 diabetes mellitus with diabetic cataract 07/23/2024 Numbness of fingers of both hands 07/23/2024 Assessment & Plan (07/23/2024 10:59 AM EDT): Trial vit b 12 supplement 1,0000 mcg daily Type 2 diabetes mellitus without complications 0 05/26/2024 Assessment & Plan (05/26/2024 10:12 AM EDT): No current medications are being taken A1c: 6.3% 05/26/24 Mixed hyperlipidemia 04/13/2024 Assessment & Plan (05/26/2024 6:13 AM EDT): On statin therapy Check labs yearly and prn dose changes Gastroesophageal reflux disease without esophagi tis 04/13/2024 Assessment & Plan (05/26/2024 6:12 AM EDT): Recommendations: freq small meals, nothing to eat or drink at least 2 hours prior to bed, limit caffeine, alcohol, as well as spicy foods Meds to limit or avoid if possible: NSAIDS Elevate HOB if possible Current meds: pantoprazole Chronic kidney disease, stage 3b 10/14/2023 Assessment & Plan (07/23/2024 6:37 AM EDT): Continued monitoring Goals: good BP and DM control Assessment & Plan (05/26/2024 6:12 AM EDT): Continued monitoring Assessment & Plan (01/09/2024 2:53 PM EST): eGFR is 32. 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 Likely r/t HF. Pt states she was unaware of this and has never been referred to or seen nephrology in the past. Referral sent to Nephrology in [place]. Pt did not follow up yet. Assessment & Plan (10/14/2023 9:47 AM EDT): eGFR is 34. 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 Likely r/t HF. Pt states she was unaware of this and has never been referred to or seen nephrology in the past. Referral sent to Nephrology in [place]. Consider adding SLGT-2 today. Will discuss with Press Room Supervisor first. Acute on chronic diastolic HF (heart failure) Assessment & Plan (05/22/2023 4:54 PM EDT): Acute on chronic diastolic HF - still volume overload on exam. Improved from before when she was seen past week. C/w increased dose of bumex 4 q12. Follow up in one month, repeat BNP, BMP ordered Chronic diastolic heart failure 04/25/2023 Assessment & Plan (07/23/2024 6:36 AM EDT): Managed by [facility] Cardiology Current meds: imdur, b dayna, diuretics Assessment & Plan (05/26/2024 6:15 AM EDT): Managed by [facility] Cardiology Current meds: imdur, b dayna, diuretics Assessment & Plan (05/22/2023 4:53 PM EDT): Chronic diastolic HF, Afib. Repeat ECHO 06/11 --> shows mod -severe TR, Mod MR, normal LVEF, but elevated right sided pressures with dilated IVC indicative of volume overload. Patient reports exertional SOB, fatigue, low energy - improved but still has ZAMARRIPA and evidence of volume overload on exam. C/w bumex 4 q12 for one week for now. Assessment & Plan (04/25/2023 12:02 PM EST): Chronic diastolic HF, Afib. Last ECHO in 2019 Patient reports exertional SOB, fatigue, low energy Does not appear to be overtly volume overload on exam She experiences orthopnea but denies PND Will order labs and an ECHO to assess cardiac structure to ensure there is no sig change/abnormality in her cardiac structure, progression of valvular disease. On bumex 2 q12. Will decide to change regimen based on the blood work Chronic fatigue 04/25/2023 Assessment & Plan (10/14/2023 9:45 AM EDT): Iron deficiency; Taking Ferrous sulfate. Chronic diastolic HF. TSH normal. Assessment & Plan (04/25/2023 11:57 AM EST): Reports chronic fatigue, low energy. Could be due to chronic Afib Check TSH Shortness of breath 04/25/2023 Assessment & Plan (05/22/2023 4:52 PM EDT): SOB, worse on exertion, associated with orthopnea. Admits to not using her water pill regularly. Hx of Chronic diastolic HF, mitral regurg, CAD Repeat ECHO ordered - shows moderate to severe TR, moderate MR, Elevated right sided pressures, dilated IVC indicative of hypervolemia Labs ordered - reveal hypokalemia, elevated bnp - improved on repeat testing. She seems to be doing better than before. However, she still have evidence of volume overload on exam Asked patient to continue with increased dose of Bumex. - that is 4 mg q12 for one more week. Follow up after one week. She also needs to have BNP, BMP before next appointment Assessment & Plan (05/06/2023 5:05 PM EDT): SOB, worse on exertion, associated with orthopnea. Admits to not using her water pill regularly. Hx of Chronic diastolic HF, mitral regurg, CAD Last echo in 2019. Labs ordered - reveal hypokalemia, elevated bnp Asked patient to increase potassium to 20 q12, along with increase bumex to 4 mg q12. BMP in one week. Follow up after ECHO and BMP result in one week. Assessment & Plan (04/25/2023 12:04 PM EST): SOB, worse on exertion, associated with orthopnea. Admits to not using her water pill regularly. Hx of Chronic diastolic HF, mitral regurg, CAD Last echo in 2019. Will order 2D ECHO to assess cardiac structure Also ordered labs. HTN (hypertension) 03/19/2023 Assessment & Plan (07/23/2024 6:37 AM EDT): Please check blood pressure daily and record DASH diet Limit caffeine Take medication as directed Contact office if chest pain, pressure, dizziness, shortness of breath, swelling legs Recommend slow position changes Current meds: imdur, bblocker, aldactone Assessment & Plan (05/26/2024 6:11 AM EDT): Please check blood pressure daily and record DASH diet Limit caffeine Take medication as directed Contact office if chest pain, pressure, dizziness, shortness of breath, swelling legs Recommend slow position changes Current meds: imdur, bblocker, aldactone Assessment & Plan (01/09/2024 2:41 PM EST): Currently taking Metoprolol 100mg and Isosorbide 30mg Does not check BP at home; Denies orthostatic changes, dizziness, cough, shortness of breath, swelling in extremities. Continue current regimen. Given BP log, advised pt to record BP and bring log back with them to next visit. Assessment & Plan (10/14/2023 9:42 AM EDT): Metoprolol 100mg and Isosorbide 30mg Denies orthostatic changes Denies edema Does not check BP at home; Given BP log today in office. Educated on accurate BP measuring steps. Advised pt to check once per day in the afternoon and bring back to next visit. Continue medications as directed. Assessment & Plan (04/25/2023 12:01 PM EST): At goal. C/w similar regimen. History of coronary artery bypass graft 02/02/20 Mitral valve regurgitation 02/01/2022 Nonrheumatic tricuspid valve regurgitation 02/01 Assessment & Plan (05/26/2024 6:11 AM EDT): Per [facility] Cardiology mgmt Pulmonary HTN 02/01/2022 Assessment & Plan (05/26/2024 6:11 AM EDT): Findings confirmed through heart cath Chronic atrial fibrillation, unspecified 019 Assessment & Plan (07/23/2024 6:36 AM EDT): Current meds: xarelto, b dayna [facility] Cardiology Assessment & Plan (05/26/2024 6:10 AM EDT): Current meds: xarelto, b dayna [facility] Cardiology Assessment & Plan (04/25/2023 11:59 AM EST): Chronic Afib, persistent, HR remains controlled On Xarelto for AC Previous hx of failed cardioversion. Patient has not seen cardiology for over 2 years now. Will refer to [facility] cardiology. Hypertensive heart disease with heart failure Assessment & Plan (10/14/2023 9:44 AM EDT): Follows with Cardiology; [facility]. Spironlactone Isosorbide Metoprolol Kidney function is very low, service center representative of CKD stage 3; Likely r/t HF. Pt states she was unaware of this and has never been referred to or seen nephrology in the past. Referral sent to Nephrology in [place]. Consider adding SLGT-2 today. Will discuss with Press Room Supervisor first. Assessment & Plan (04/25/2023 12:03 PM EST): Hx with HFpEF. Patient has chronic diastolic HF. She is SOB, worse on exertion, reports fatigue, low energy Labs ordered to r/o Anemia, electrolyte abnormalities. Will also get an ECHO to assess cardiac structure. Coronary artery disease invo lving cahu[place] coronary artery of cahuilla heart without angina pectoris 06/18/2018 Overview (04/25/2023): Last Assessment & Plan: Coronary artery disease is continue risk factor modifications- heart healthy diet, regular exercise as tolerated and continue all medications. Assessment & Plan (07/23/2024 6:36 AM EDT): Current meds: statin, imdur, b dayna [facility] Cardiology Assessment & Plan (05/26/2024 6:10 AM EDT): Current meds: statin, imdur, b dayna [facility] Cardiology Assessment & Plan (04/25/2023 12:01 PM EST): S/p CABG. Denies CP, bt reports exertional Dyspnea Check labs C/w ASA, BB, statin. Resolved Problems Problem Noted Date Diagnosed Date Resolved Date Other hyperlipidemia 04/25/2023 025 Assessment & Plan (01/09/2024 2:41 PM EST): Currently taking atorvastatin 20mg Denies any myalgias. Continue current regimen. Assessment & Plan (04/25/2023 11:58 AM EST): On Lipitor, check lipid panel Establishing care with new d jazor, encounter for 04/25/2023 04/13/2024 Assessment & Plan (04/25/2023 11:58 AM EST): New Patient, here to establish care. Reviewed medical, surgical and social hx. Reviewed available old records. Reviewed and updated medication list. Hypercholesteremia 03/19/2023 Assessment & Plan (10/14/2023 9:45 AM EDT): On Atorvastatin 20mg Denies myalgias; Last lipid panel looks great Continue current regimen. Immunizations Immunization Administration Dates Next Due Influenza, High Dose Seasona l, Preservative Free 11/04/2019,10/13/2015 Influenza, trivalent, adjuvanted 10/27/2018 Pfizer Purple Cap SARS-CoV-2 Vaccination 021,06/30/2020,06/09/2020 Zoster, Recombinant 04/30/2019,02/25/2019 Family History Medical History Relation Name Comments Diabetes Father HTN Father Heart disease Father Diabetes Mother HTN Mother Heart disease Mother Relation Name Status Comments Father Mother Social History Tobacco Use Types Packs/Day Years Used Date Smoking Tobacco: Never Passive Smoke Exposure: Never Smokeless Tobacco: Never Tobacco Cessation:Counseling Given: Not Answered Alcohol Use Standard Drinks/Week Comments Never 0 (1 standard drink = 0.6 oz pur e alcohol) PHQ-2 Answer Date Recorded Patient Health Questionnaire-2 Score 0 07/23/2024 Comments No Sex and Gender Information Value Date Recorded Sex Assigned at Not on file Legal Sex Female 8:34 PM EDT Gender Identity Not on file Sexual Orientation Not on file Last Filed Vital Signs Vital Sign Reading Time Taken Comments Blood Pressure 122/72 07/23/2024 10:31 AM EDT Pulse 79 07/23/2024 10:31 AM EDT Temperature 36.8 C (98.3 F) 07/23/2024 10:31 AM EDT Respiratory Rate 18 07/23/2024 10:31 AM EDT Oxygen Saturation 96% 07/23/2024 10:31 AM EDT Inhaled Oxygen Concentration - - Weight 72.6 kg (160 lb) 07/23/2024 10:31 AM EDT Height 162.6 cm (5' 4 ) 01/09/2024 2:06 PM EST Body Mass Index 27.46 01/09/2024 2:06 PM EST Plan of Treatment Health Maintenance Due Date Last Done Comments Pneumococcal Vaccine: 65+ Ye ars (1 of 1 - PCV) 1988 Influenza Vaccine (#1) 2024 0, 10/27/2018, 10/13/[address] [place] [address] MEDICARE [facility] Care Teams Student Accounts Coordinator Relationship Specialty Start Date End Date Keith Foley MD PCP - General Family Medicine 10/02/23 Sarah Hemphill NP Nurse Practitioner Family Medicine 10/02/23
--- OUTSIDE RECORDS SUMMARY | 2024-11-20 07:56 | XMS_ITS | Clinical Summary ---
Author Organization [facility] Address [address] [place] [address] Care Team Providers Care Condemnation Engineer Name Role Phone Allyssa Baez MD Primary Care Provider [phone] Allergies Active Allergy Reactions Criticality Noted Date Comments Furosemide 02/01/2022 Penicillins 02/01/2022 Sulfa (Sulfonamide Antibiotics) 01/18 Medications atorvastatin (Lipitor) 20 mg tablet atorvastatin 20 mg tablet take 1 tablet by mouth once daily Active ferrous sulfate 325 (65 Fe) MG tablet FeroSul 325 mg (65 mg iron) tablet take 1 tablet by mouth once daily Active magnesium oxide (Mag-Ox) 400 mg (241.3 mg magnesium) tablet magnesium oxide 400 mg (241.3 mg magnesium) tablet take 1 tablet by mouth once daily Active metoprolol tartrate (Lopressor) 100 mg tablet metoprolol tartrate 100 mg tablet TAKE 1 AND 1/2 TABLETS BY MOUTH TWICE A DAY Active pantoprazole (ProtoNix) 40 mg EC tablet Take 40 mg by mouth in the morning. 11/28/19 22 Active albuterol 90 mcg/actuation inhaler ProAir HFA 90 mcg/actuation aerosol inhaler Active ergocalciferol (Vitamin D-2) 1.25 MG (79904 Units) capsule Vitamin D2 1,250 mcg (50,000 unit) capsule Active spironolactone (Aldactone) 25 mg tabletIndication s:Chronic diastolic congestive heart failure (CMS/HCC),Pulmon mila hypertension (CMS/HCC) Take 0.5 tablets (12.5 mg) by mouth in the morning. 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 Do not crush or chew. 90 tablet 3 05/05/19 25 026 Active bumetanide (Bumex) 2 mg tabletIndication s:Chronic diastolic congestive heart failure (CMS/HCC) Take 1.5 tablets in the morning, and take 1 tablet in the evening 225 tablet 3 08/21/19 25 Active rivaroxaban (Xarelto) 15 mg tabletIndication s:Permanent atrial fibrillation (CMS/HCC) Take 1 tablet (15 mg) by mouth daily with evening meal. Take with food. 30 tablet 11 10/09/19 25 Active potassium chloride CR (Klor-Con M20) 20 mEq ER tabletIndication s:Acute combined systolic and diastolic heart failure (CMS/HCC) Take 1 tablet (20 mEq) by mouth once daily as directed. 90 tablet 3 10/27/19 25 Active potassium chloride CR (Klor-Con M20) 20 mEq ER tabletIndication s:Acute combined systolic and diastolic heart failure (CMS/HCC) Take 1 tablet (20 mEq) by mouth once daily as directed. 90 tablet 3 12/18/19 24 025 Discontin ued(Reord er) Active Problems Problem Noted Date Diagnosed Date Numbness of fingers of both hands 07/23/2024 Type 2 diabetes mellitus with diabetic cataract 07/23/2024 Type 2 diabetes mellitus without complications 0 05/26/2024 Gastroesophageal reflux disease without esophagi tis 04/13/2024 Stage 3b chronic kidney disease 10/14/2023 Overview (12/18/2023): Last Assessment & Plan: eGFR is 34. Therapeutic Consultant of CKD stage 3; Has been trending downwards for quite sometime. Likely r/t HF. Pt states she was unaware of this and has never been referred to or seen nephrology in the past. Referral sent to Nephrology in [place]. Consider adding SLGT-2 today. Will discuss with Park Manager first. Pulmonary hypertension 06/14/2023 CKD (chronic kidney disease) 05/06/2023 Chronic fatigue 04/25/2023 05/06/2023 Overview (05/06/2023): Last Assessment & Plan: Reports chronic fatigue, low energy. Could be due to chronic Afib Check TSH Establishing care with new doctor, encounter for 04/25/2023 05/06/2023 Overview (05/06/2023): Last Assessment & Plan: New Patient, here to establish care. Reviewed medical, surgical and social hx. Reviewed available old records. Reviewed and updated medication list. Shortness of breath 04/25/2023 05/06/2023 Overview (05/06/2023): Last Assessment & Plan: SOB, worse on exertion, associated with orthopnea. Admits to not using her water pill regularly. Hx of Chronic diastolic HF, mitral regurg, CAD Last echo in 2019. Will order 2D ECHO to assess cardiac structure Also ordered labs. HTN (hypertension) 03/19/2023 05/06/2023 Overview (05/06/2023): Last Assessment & Plan: At goal. C/w similar regimen. Hypercholesteremia 03/19/2023 05/06/2023 History of coronary artery bypass graft 02/02/20 22 Pulmonary HTN 02/01/2022 Nonrheumatic tricuspid valve regurgitation 02/01 Mitral valve regurgitation 02/01/2022 Hypertensive heart disease with heart failure 05/06/2023 Overview (05/06/2023): Last Assessment & Plan: Hx with HFpEF. Patient has chronic diastolic HF. She is SOB, worse on exertion, reports fatigue, low energy Labs ordered to r/o Anemia, electrolyte abnormalities. Will also get an ECHO to assess cardiac structure. Chronic atrial fibrillation 06/18/2018 Assessment & Plan (02/03/2022 7:27 AM EST): [id number]= 4 -rate controlled on metoprolol 100mg BID -tolerating xarelto 15mg, continue Chronic diastolic congestive heart failure 06/18 Assessment & Plan (02/03/2022 7:35 AM EST): Diastolic Heart failure -[facility] II today -Continue GDMT- metoprolol, lipitor, bumex, Diuretic therapy - bumex 3mg bid -Monitor daily weights, I&O -fluid restriction: instructed to minimize to 1.5-2L/day, renal function and electrolytes -she is instructed to minimize salt to 2g daily -she is to report sudden weight gain, shortness of breath or increase in swelling immediately to be seen sooner than 6 weeks Coronary artery disease invo lving wiyot coronary artery of wiyot heart without angina pectoris 06/18/2018 Assessment & Plan (02/01/2022 3:27 PM EST): Coronary artery disease is continue risk factor modifications- heart healthy diet, regular exercise as tolerated and continue all medications. Encounters Date Type Department Care Team Description 10/26/[address] [phone] Radha Lord MA Acute combined systolic and diastolic heart failure (CMS/HCC) 10/08/2024 Refill [facility] [address] [place] [address] Radha Lord MA Permanent atrial fibrillation (CMS/HCC) 09/07/2024 3:15 PM EDT Office Visit [address] [place] [address] Leo Flores MD Chronic diastolic congestive heart failure (CMS/HCC) (Primary Dx); Nonrheumatic tricuspid valve regurgitation; Pulmonary hypertension (CMS/HCC); Nonrheumatic mitral valve regurgitation; Permanent atrial fibrillation (CMS/HCC); Coronary artery disease involving wiyot coronary artery of wiyot heart without angina pectoris; History of coronary artery bypass surgery; Primary hypertension; Stage 3b chronic kidney disease (CMS/HCC) 08/20/2024 Refill [facility] [address] [place] [phone] Radha Lord MA Chronic diastolic congestive heart failure (CMS/HCC) from Last 3 Months Family History Medical History Relation Name Comments Stroke Brother pacemaker Father Relation Name Status Comments Brother Father Social History Tobacco Use Types Packs/Day Years Used Date Smoking Tobacco: Never Smokeless Tobacco: Never Tobacco Cessation:Counseling Given: Not Answered Alcohol Use Standard Drinks/Week Comments Not Currently 0 (1 standard drink = 0.6 oz pur e alcohol) [place] Safety & Environment Answer Date Rec orded Fear of Current or Ex-Partner Not on file Emotionally Abused Not on file 04/11/2023 Physically Abused Not on file 04/11/2023 Sexually Abused Not on file 04/11/2023 Physically or Sexually Abused Not on file Comments Unknown Sex and Gender Information Value Date Recorded Sex Assigned at Female 08/26/2024 3:32 PM EDT Legal Sex Female 10:16 PM EDT Gender Identity Female 08/26/2024 3:32 PM EDT Sexual Orientation Heterosexual or Straight 10/2024 3:32 PM EDT Last Filed Vital Signs Vital Sign Reading Time Taken Comments Blood Pressure 132/70 09/07/2024 3:50 PM EDT Pulse 79 09/07/2024 3:50 PM EDT Temperature - - Respiratory Rate 14 09/10/2023 3:45 PM EDT Oxygen Saturation 95% 09/07/2024 3:50 PM EDT Inhaled Oxygen Concentration - - Weight 70.3 kg (155 lb) 09/07/2024 3:50 PM EDT Height 162.6 cm (5' 4 ) 09/07/2024 3:50 PM EDT Body Mass Index 26.61 09/07/2024 3:50 PM EDT Plan of Treatment Upcoming Encounters Date Type Department Care Team (Late st Contact Info) Description 11/23/2024 2:00 PM EDT Office Visit [facility] [address] [place] [phone] Leo Flores MD [address] [facility] [address] [facility] [place] [phone] Health Maintenance Due Date Last Done Comments Diabetes: Hemoglobin A1C 1940 Medicare Annual Wellness (AWV) 1940 Diabetes: Retinopathy Screening 1948 Depression Screening 1950 Diabetes: Urine Protein Screening 1957 Pneumococcal Vaccine: 50+ Years (1 of 2 - PCV) 1957 Adult Tetanus 1960 Fall Risk Screening 05/17/2003 COVID-19 Vaccine (2024-2 6 season) 2024 01/11/2021, 06/30/2020, 06/09/2020 Influenza Vaccine (#1) 2024 0, 10/27/2018, 10/13/2015 Zoster Vaccines Completed 04/30/2019, 02/25/2019 HIB Vaccines Aged Out No longer eligi ble based on patient's age to complete this topic HPV Vaccines Aged Out No longer eligi ble based on patient's age to complete this topic IPV Vaccines Aged Out No longer eligi ble based on patient's age to complete this topic Meningococcal B Vaccine Aged Out No l onger eligible based on patient's age to complete this topic Meningococcal Vaccine Aged Out No abel karen eligible based on patient's age to complete this topic Rotavirus Vaccines Aged Out No longer eligible based on patient's age to complete this topic Insurance MEDICARE Member Subscriber Plan / Payer (Ef fective 2005-Present) Name:Jenifer Samuel Member ID:[id number] Relation to Subscriber:Self Name:Jenifer Samuel Subscriber ID:[id number] Payer ID:[id number] Group ID:Not on file Type:Medicare Address: [facility] [address] Care Teams Condemnation Engineer Relationship Specialty Start Date End Date Allyssa Baez MD [address] [place] [address] PCP - General Nurse Practitioner 09/07/24
--- OUTSIDE RECORDS SUMMARY | 2024-11-20 07:57 | XMS_ITS | Encounter Summary ---
Author Organization [facility] Address [address] [place] [address] Care Team Providers Care Elder Assistant Name Role Phone Shaikh SAIGE Ruiz Primary Care Provider [phone] Keith Foley MD Primary Care Provider [phone] Sarah Hemphill ASSEMBLER RUBBER FOOTWEAR Unavailable Encounter Details Date Type Department Care Team (Late st Contact Info) Description 05/22/2023 Clinisync Result Encounter [...] as of this encounter Plan of Treatment Not on file documented as of this encounter Procedures Procedure Name Priority Date/Time Associated Diagnosis Comments CA ECHO DOPPLER COMPLETE 05/22/2023 2:20 PM EDT documented in this encounter Results * CA ECHO DOPPLER COMPLETE (05/22/2023 2:20 PM EDT) Anatomical Region Laterality Modality Other 05/22/2023 2:20 PM EDT Narrative 05/22/2023 2:21 PM EDT The [address] [address] Cardiology Report Signed Patient: RICK HERNANDEZ MR#: [id number] : 1940 Acct:[id number] Age/Sex: 83 / F ADM Date: 05/22/23 Loc: [place] Attending Dr: HERBER ALLEN Ordering Physician: HERBER ALLEN Date of Service: 05/22/23 Procedure(s): CA echo doppler complete Accession Number(s): [id number] cc: Shaikh Missy Ruiz; HERBER ALLEN Patient Name: RICK HERNANDEZ MR#: [id number] : 1940 Exam Date: 05/22/2023 Ordering Doctor: [...] Signed By: 05/22/23 1421 DD/ 1420 TD/TT: Buyer Renter: Procedure Note Radiology, Radiologist, - 05/22/2023 [place] [address] Cardiology Report Signed Patient: RICK HERNANDEZ SMR#: [id number] : 9Acct:[id number] Age/Sex: 83 / FADM Date: 05/22/23 Loc: [place] Attending Dr: HERBER ALLEN Ordering Physician: HERBER ALLEN Date of Service: 05/22/23 Procedure(s): CA echo doppler complete Accession Number(s): [id number] cc: Shaikh Missy Ruiz; HERBER ALLEN Patient Name: RICK HERNANDEZ MR#: [id number] : 1940 Exam Date: 05/22/2023 Ordering Doctor: [...] M.D. Signed By:05/22/23 1421 DD/ 1420 TD/TT: Buyer Renter: us Generic External Data Provider [facility] Final Result documented in this encounter Visit Diagnoses Not on filedocumented in this encounter Care Teams Elder Assistant Relationship Specialty Start Date End Date Shaikh Ruiz MD PCP - General Internal Medicine 04/25/23 10/01/23 Keith Foley MD PCP - General Family Medicine 10/02/23 Sarah Hemphill NP Nurse Practitioner Family Medicine 10/02/23 documented as of this encounter
--- OUTSIDE RECORDS SUMMARY | 2024-11-20 07:57 | XMS_ITS | Encounter Summary ---
Author Organization [facility] Address [address] [place] [address] Care Team Providers Care Shipping Lead Name Role Phone Shaikh SAIGE Ruiz Primary Care Provider [phone] Keith Foley MD Primary Care Provider [phone] Sarah Hemphill OIL FIELD PIPELINE SUPERVISOR Unavailable [phone] Encounter Details Date Type Department Care Team (Late st Contact Info) Description 06/03/2023 Orders Only [facility] [address] [place] [address] Leo Flores MD [address] [place] [address] Social History Tobacco Use Types [...] on filedocumented in this encounter Care Teams Shipping Lead Relationship Specialty Start Date End Date Shaikh Ruiz MD PCP - General Internal Medicine 04/25/23 10/01/23 Keith Foley MD PCP - General Family Medicine 10/02/23 Sarah Hemphill NP Nurse Practitioner Family Medicine 10/02/23 documented as of this encounter
--- OUTSIDE RECORDS SUMMARY | 2024-11-20 07:57 | XMS_ITS | CCD ---
Author Organization [facility] Care Team Providers Care Neurological Surgeon Name Role Phone EDU ODONNELL Referring Unavailable HOUSE, EDU Primary Care Unavailable ALLY, HANI Admitting Unavailable AJ, FLORENTINO Attending Unavailable ME Procedure Practitioner Unavailab le UNKNOWN, PROVIDER Surgeon Unavailable ME Procedure Practitioner Unavailab le NAWRSHERRY PERALTA T Surgeon Unavailable ME Procedure Practitioner Unavailab le AJ, FLORENTINO Surgeon Unavailable LAKSHMI MARSHALLKOLB Admitting Unavailable BLAS, EDU Primary Care Unavailable SELF, REFERRED Referring Unavailable MEGHAN HEAD Attending Unava ilable ME Procedure Practitioner Unavailab le KEVON COLON Surgeon [...] Unavailable HOUSE, DR SALAMANCA Primary Care Unavailable ZAHLPETR RIVERA Consulting Unavailable PETR MERLOS Admitting Unavailable HOUSE, [...] Consulting Unavailable MISC, DR PROCTOR Admitting Unavailable [place], DR SALAMANCA Primary Care Unavailable Og MOULTON, Keith Primary Care Provider [phone] Kanchan MANAGER OPERATIONAL, Shell Unavailable Kanchan MANAGER OPERATIONAL, Shell Unavailable ALLYSSA BAEZ Attending Unavailable ALLYSSA BAEZ Attending Unavailable SHELL HEMPHILL Attending UnavailSHELL Lester Attending UnavailHERBER Law Attending Unavailable BIRDIE CHACON Attending Unavailable HERBER FLORES Attending Unavailable HERBER FLORES Attending Unavailable Joi Guajardo DO Primary Care Provider [phone] Joi Guajardo DO Attending Provider Allergies Allergy Classification Reported Allergen(s) Allergy Type Date of Onset Reaction(s) Facility (3 sources) Furosemide Drug Allergy [address] [facility] Repository (3 sources) Penicillins; Translations: [PENICILLINS] Drug allergy (disorder) [address] [facility] Repository (4 sources) Sulfonamides (Antibiotic); Translations: [SULFA (SULFONAMIDE ANTIBIOTICS)] Drug allergy (disorder) [address] [facility] Repository (1 source) Penicillin Drug Allergy [facility] Repository (20 sources) Penicillin G Drug Allergy 9 [facility] Healthcare Work Phone: (20 sources) Sulfonamides (Antibiotic) Drug Intolerance 9 [facility] Healthcare (1 source) Furosemide; Translations: [FUROSEMIDE] Drug Allergy [address] [facility] Repository Medications Current Medications Medication Drug Class(es) Dates Sig (Normalized) Sig (Original) [id number] 200 actuat albuterol 0.09 mg/actuat metered dose inhaler (20 sources) beta2-Adrenergic Agonist Start: 11-12-2024 take 1 puff(s) by inhalation every six hours as needed Albuterol Sulfate 90 mcg/actuation HFA aerosol inhaler Active 2 PUFF INHALATION Every 6 hours as needed November 12, 2024 12:00am Complies with drug therapy take 2 puff(s) by in halation every four hours albuterol HFA (ProAir HFA) 90 mcg/act inhaler Inhale 2 puffs every 4 (four) hours if needed for shortness of breath Active atorvastatin 20 mg oral tablet (20 sources) HMG-CoA Reductase Inhibitor Start: 10-29-2024 take 1 tablet by mouth once daily in the evening Atorvastatin 20 mg tablet Active 20 MG PO Every evening 90 October 29, 2024 12:00am Complies with drug therapy Start: 11-25-2023 End: 09-21-2024 take 1 tablet by mouth in the evening atorvastatin (Lipitor) 20 MG tablet Indications: Hypercholesteremia Take 1 tablet (20 mg) by mouth in the evening 90 tablet 1 06/23/2024 09/21/2024 Active take 1 tablet by amado th in the morning atorvastatin (Lipitor) 20 MG tablet Take 20 mg by mouth in the morning. Active bumetanide 2 mg oral tablet (20 sources) Loop Diuretic Start: 11-12-2024 take 1 tablet by mouth twice daily Bumetanide 2 mg tablet Active 2 MG PO Twice daily November 12, 2024 12:00am Complies with drug therapy take 1 tablet by amado th in the morning, then take 1 tablet by mouth at bedtime, then take 3 mg by mouth in the morning, then take 1 tablet by mouth in the evening bumetanide (Bumex) 2 MG tablet Indicatio ns: Heart Failure Take 2 mg by mouth in the morning and 2 mg before bedtime. Taking 3mg am and 2mg in the pm. Active carbamide peroxide 65 mg/ml otic solution (2 sources) Start: 10-14-2023 End: 10-18-2023 carbamide peroxide (Debrox) 6.5 % otic solution Indications: Cerumen debris on tympanic membrane of both ears Administer 3-5 drops into affected ear(s) in the morning and 3-5 drops before bedtime. Do all this for 4 days. 15 mL 10/14/2023 10/18/2023 Active ferrous sulfate 325 mg oral tablet (20 sources) Start: 11-11-2024 take 1 tablet by mouth once daily Ferrous Sulfate 325 mg (65 mg iron) tablet Active 325 MG PO Daily November 11, 2024 12:00am Complies with drug therapy Start: 05-26-2024 End: 08-24-2024 take 1 tablet by mouth at mealtime ferrous sulfate (FeroSul) 325 (65 Fe) MG tablet Indications: Chronic kidney disease, stage 3b (CMS-HCC) Take 1 tablet (325 mg) by mouth in the morning. Take with meals. 90 tablet 1 05/26/2024 08/24/2024 Active 24 hr isosorbide mononitrate 30 mg extended release oral tablet (20 sources) Nitrate Vasodilator Start: 05-06-2023 End: 05-05-2024 take 1 tablet by mouth in the morning, then take 1 tablet by mouth every twenty-four hours isosorbide mononitrate ER (Imdur) 30 MG 24 hr tablet Take 30 mg by mouth in the morning. 05/06/2023 Active isosorbide dinitrate 30 mg oral tablet (1 source) Nitrate Vasodilator Start: 11-11-2024 take 1 tablet by mouth twice daily Isosorbide Dinitrate 30 mg tablet Active 30 MG PO Twice daily November 11, 2024 12:00am allow nitrate-free interval of 12-14 hrs per 24-hr period Complies with drug therapy Magnesium Aspart,Citrate,Ox hardy 400 mg magnesium capsule (1 source) Start: 11-12-2024 take 1 capsule by mouth once daily Magnesium Aspart,Citrate,Oxi de 400 mg magnesium capsule Active 400 MG PO daily November 12, 2024 12:00am Complies with drug therapy Magnesium Oxide (20 sources) End: 10-14-2023 take 1 tablet by mouth once daily magnesium oxide (Mag-Ox) 400 MG tablet Take 400 mg by mouth Daily 10/14/2023 Discontinued (Duplicate order) magnesium oxide (Mag-Ox) 400 mg tablet 400 mg in the morning. Active 24 hr metoprolol succinate 100 mg extended release oral tablet (20 sources) beta-Adrenergic Dayna Start: 11-11-2024 take 1 tablet by mouth once daily Metoprolol Succinate 100 mg tablet extended release 24 hr Active 100 MG PO Daily November 11, 2024 12:00am Complies with drug therapy Start: 02-24-2024 End: 01-26-2025 take 1.5 tablets by mouth in the morning metoprolol tartrate (Lopressor) 100 MG tablet Indications: Chronic diastolic heart failure (HCC) Take 1.5 tablets (150 mg) by mouth in the morning and 1.5 tablets (150 mg) before bedtime. 270 tablet 1 07/30/2024 01/26/2025 Active Start: 08-12-2023 End: 02-20-2024 take 1.5 tablets by mouth in the morning metoprolol tartrate (Lopressor) 100 MG tablet Indications: Chronic diastolic heart failure (CMS/HCC) Take 1.5 tablets (150 mg) by mouth in the morning and 1.5 tablets (150 mg) before bedtime. 270 tablet 1 08/12/2023 02/20/2024 Discontinued (Reorder) pantoprazole 40 mg delayed release oral tablet (20 sources) Proton Pump Inhibitor Start: 11-12-2024 take 1 tablet by mouth once daily Pantoprazole 40 mg tablet,delayed release (DR/EC) Active 40 MG PO Daily November 12, 2024 12:00am Complies with drug therapy take 1 tablet by mouth before me altime pantoprazole (ProtoNix) 40 MG EC tablet Take 40 mg by mouth in the morning. Take before meals. Active potassium chloride 20 meq extended release oral tablet (20 sources) Start: 11-12-2024 take 1 tablet by mouth once daily Potassium Chloride 20 mEq tablet extended release Active 20 MEQ PO Daily November 12, 2024 12:00am Complies with drug therapy Start: 05-21-2023 End: 11-17-2023 take 1 tablet by mouth once daily potassium chloride CR (Klor-Con M20) 20 MEQ ER tablet Indications: Hypokalemia Take 1 tablet (20 mEq) by mouth Daily Do not crush or chew. 90 tablet 1 05/21/2023 10/14/2023 Discontinued (Duplicate order) rivaroxaban 15 mg oral tablet (20 sources) Factor Xa Inhibitor Start: 11-12-2024 take 1 tablet by mouth once daily at dinner Rivaroxaban (Xarelto) 15 mg tablet Active 15 MG PO Daily November 12, 2024 12:00am must administer with evening meal Complies with drug therapy take 1 tablet by mouth in the mo rning rivaroxaban (Xarelto) 15 MG tablet Take 15 mg by mouth in the morning. Take with food.. Active spironolactone 25 mg oral tablet (20 sources) Aldosterone Antagonist Start: 11-11-2024 take 1 tablet by mouth once daily Spironolactone 25 mg tablet Active 25 MG PO Daily November 11, 2024 12:00am Complies with drug therapy Start: 10-14-2023 End: 10-13-2024 take 0.5 tablet by mouth in the morning spironolactone (Aldactone) 25 MG tablet Indications: Hypertensive heart disease with heart failure (HCC) Take 0.5 tablets (12.5 mg) by mouth in the morning. 15 tablet 11 10/14/2023 10/13/2024 Active Start: 09-25-2023 End: 10-14-2023 spironolactone (Aldactone) 2 5 MG tablet Take 12.5 mg by mouth in the morning. 09/25/2023 10/14/2023 Discontinued (Reorder) vitamin b12 1 mg oral tablet (4 sources) Vitamin B12 take 1 tablet by mouth once daily cyanocobalamin (Vitamin B-12) 1000 MCG tablet Take 1,000 mcg by mouth Daily Active Problems Active Problems Problem Classification Problem Date Documented Date Episodic/Chronic Cardiac dysrhythmias (20 sources) Chronic atrial fibrillation; Translations: [Chronic atrial fibrillation, unspecified] Onset: 01-15-2019 04-25-2023 Chronic Cataract (8 sources) Age-related nuclear cataract, right eye; Translations: [Age-related nuclear cataract, left eye] Onset: 12-21-2021 Chronic Chronic kidney disease (20 sources) Chronic kidney disease stage 3B ; Translations: [Stage 3b chronic kidney disease (HCC)] Onset: 10-14-2023 10-14-2023 Chronic Chronic kidney disease (2 sources) Chronic kidney disease; Translations: [Chronic kidney disease, stage 3b] Onset: 12-18-2023 Congestive heart failure; nonhypertensive (20 sources) Acute on chronic diastolic (congestive) heart failure; Translations: [Chronic diastolic (congestive) heart failure] Onset: 03-07-2021 Chronic Coronary atherosclerosis and other heart disease (20 sources) Atherosclerotic heart disease of [place] coronary artery without angina pectoris; Translations: [Coronary arteriosclerosis] Onset: 06-18-2018 04-25-2023 Chronic Deficiency and other anemia (1 source) Iron deficiency anemia; Translations: [Iron deficiency anemia, unspecified] 11-12-2024 Episodic Diabetes mellitus with complications (14 sources) Chronic kidney disease due to type 2 diabetes mellitus; Translations: [Type 2 diabetes mellitus with diabetic chronic kidney disease] Onset: 07-23-2024 07-23-2024 Chronic Diabetes mellitus without complication (12 sources) Type 2 diabetes mellitus; Translations: [Type 2 diabetes mellitus without complications] Onset: 05-26-2024 05-26-2024 Chronic Disorders of lipid metabolism (20 sources) Pure hypercholesterolemia, unspecified; Translations: [Hypercholesterolemia] Onset: 12-27-2021 Resolved: 04-13-2024 11-25-2023 Chronic Esophageal disorders (13 sources) Gastroesophageal reflux disease without esophagitis; Translations: [Gastro-esophageal reflux disease without esophagitis] Onset: 04-13-2024 04-13-2024 Chronic Essential hypertension (20 sources) Essential (primary) hypertension; Translations: [Hypertensive disorder] Onset: 12-27-2021 03-19-2023 Chronic Heart valve disorders (20 sources) Mitral valve regurgitation; Translations: [Nonrheumatic mitral (valve) insufficiency] Onset: 02-01-2022 04-25-2023 Chronic Hypertension with complications and secondary hypertension (20 sources) Hypertensive heart failure; Translations: [Hypertensive heart disease with heart failure] Onset: 01-15-2019 04-25-2023 Chronic Malaise and fatigue (20 sources) Fatigue; Translations: [Chronic fatigue, unspecified] Onset: 04-25-2023 04-25-2023 Chronic Other eye disorders (1 source) H/O: Bilateral cataract extraction; Translations: [Cataract extraction status, right eye] 11-12-2024 Episodic Other nervous system disorders (6 sources) Numbness of finger; Translations: [Anesthesia of skin] Onset: 07-23-2024 07-23-2024 Episodic Pulmonary heart disease (20 sources) Pulmonary hypertension; Translations: [Pulmonary hypertension, unspecified] Onset: 02-01-2022 04-25-2023 Chronic Residual codes; unclassified (1 source) Acquired absence of both cervix and uterus; Translations: [ACQUIRED ABSENCE BOTH CERVIX AND UTERUS] Onset: 12-27-2021 Episodic Unclassified (2 sources) Permanent atrial fibrillation; Translations: [Permanent atrial fibrillation] Onset: 01-13-2024 Unclassified (2 sources) Chronic atrial fibrillation, unspecified; Translations: [Chronic atrial fibrillation, unspecified] Onset: 02-01-2022 Past or Other Problems Problem Classification Problem Date Documented Da te Episodic/Chronic Administrative/social admission (20 sources) First encounter by subject; Translations: [Persons encountering health services in other specified circumstances] Onset: 04-25-2023 Resolved: 04-13-2024 04-25-2023 Episodic Coronary atherosclerosis and other heart disease (3 sources) Presence of aortocoronary bypass graft; Translations: [PRESENCE AORTOCORONARY BYPASS GRAFT] Onset: 12-27-2021 Episodic Mood disorders (4 sources) Mood disorders Onset: 07-23-2024 07-23-2024 Other and unspecified benign neoplasm (1 source) Hemangioma unspecified site; Translations: [HEMANGIOMA UNSPECIFIED SITE] Onset: 04-03-2021 Episodic Other ear and sense organ disorders (2 sources) Excessive cerumen in ear canal ; Translations: [Impacted cerumen, bilateral] 10-14-2023 Episodic Other lower respiratory disease (20 sources) Dyspnea; Translations: [Shortness of breath] Onset: 04-25-2023 04-25-2023 Episodic Other skin disorders (4 sources) Sebaceous cyst; Translations: [SEBACEOUS CYST] Onset: 03-28-2021 Episodic Results Test Name Value Interpretation Reference Range Facility Office Visiton 09-07-2024 Follow-up visit [id number] Jenifer Hernandez 1940 F Date Provider Department Center 09/07/2024 HERBER BERMUDEZ [facility] Hos Family History Problem Relation Age of Onset Other Father Stroke Brother Family Status - Relation Status Age at Father Brother Level of Service:39311 ME OFFICE/OUTPATIENT ESTABLISHED MOD MDM 30 MIN Normal [facility] CA ECHO DOPPLER COMPLETEon 0 08-19-2024 [facility] [address] [place] [address] Cardiology Report Signed Patient: JENIFER HERNANDEZ MR#: [id number] : 1940 Acct:[id number] Age/Sex: 84 / F ADM Date: 08/19/24 Loc: CARD Attending Dr: HERBER FLORES Ordering Physician: HERBER FLORES Date of Service: 08/19/24 Procedure(s): CA echo doppler complete Accession Number(s): [id number] cc: Allyssa Baez MANAGER OPERATIONAL; HERBER FLORES ECHOCARDIOGRAM REPORT PROCEDURE: CA ECHO DOPPLER COMPLETE INDICATIONS: Diastolic heart failure, Valve disease, Pulm HTN COMPARISON: None. DESCRIPTION: COMPLETE ECHOCARDIOGRAM Real-time transthoracic echocardiography with 2D, M-mode, spectral and color flow Doppler performed. QUALITY: Technical quality was good. LEFT VENTRICLE: Normal chamber size. Mild concentric left ventricular hypertrophy. Left ventricle is hyperdynamic without wall motion abnormalities. Calculated left ventricular ejection fraction is hyperdynamic at 73%. LV EF: 73% DIASTOLIC: Not adequately assessed due to heart rhythm. ATRIAL SEPTUM: Appears intact LEFT ATRIUM: Severe dilatation. RIGHT ATRIUM: Severe dilatation. RIGHT VENTRICLE: Normal chamber size. Right ventricle systolic function appears reduced. TRICUSPID VALVE: Normal mobility and thickness. No stenosis with severe regurgitation. Moderate pulmonary hypertension. RVSP 55mmHg MITRAL VALVE: Normal mobility and thickness. No evidence of mitral valve stenosis. Mild mitral annular calcification. Mild to moderate mitral regurgitation. AORTIC VALVE: Normal trileaflet appearance. Mildly calcified aortic valve. Mildly diminished mobility. Doppler velocity suggest mild aortic valve stenosis. DVI 0.5, TIN 1.5cm2, P/M gradient 11/7mmHg, Peak velocity1.7m/s. Mild aortic regurgitation. AORTIC ROOT: Normal diameter and appearance. PULMONIC VALVE: Normal thickness and mobility. No stenosis. Mild regurgitation. PERICARDIUM: No evidence of pericardial effusion. IVC: Mild dilatation. Measuring 2.4cm with partial collapse. PLEURA: CONCLUSION: Mild concentric left ventricle hypertrophy Hyperdynamic left ventricle without wall motion abnormalities, ejection fraction 73% Severe biatrial dilatation Normal right ventricle size with reduced systolic function Moderate pulmonary hypertension, RVSP 55 mmHg Mild to moderate mitral regurgitation Mild aortic stenosis, mean pressure gradient 7 mmHg, TIN 1.5 cm??? Mild aortic root insufficiency Severe tricuspid regurgitation Dilated inferior vena cava with partial respiratory variation consistent with elevated central venous pressure, RAP 15 mmHg Adult Echocardiography Procedure Report Left Ventricle LVEDD (3.7 - 5.6 cm): 3.68 cm LVESD (2.2 - 4.0 cm): 2.38 cm LVIVS thickness (0.6 - 1.2 cm): 1.16 cm LVPW thickness (0.5 - 1.0 cm): 1.27 cm e': 0.14 m/s E - e': 3.86 LVOT Max Gradient: 2.88 mm[Hg] LVOT Area (cm2): 0.85 m/s Peak Velocity (LVOT): 0.85 m/s Mean Velocity (LVOT): 0.64 m/s LVOT Diameter 1.87 cm Left Ventricular Ejection Fraction: 73.11 % Left Atrium LA Volume Index (2D A2C): 86.17 ml/m2 Left Atrium Systolic Dimension: 4.93 cm Mitral Valve MV E to A Ratio: 0.00 MV Max Gradient: MV Mean Gradient: Mitral Valve A-Wave Peak Velocity: 0.96 m/s Mitral Valve E-Wave Peak Velocity: 0.53 m/s Cardiovascular Orifice Area: Right Ventricle RV Internal Diastolic Dimension: 3.95 cm Aorta AO Root Diam: 3.03 cm Ascending Ao Diam: 3.10 cm Aortic Valve AoV Area (Peak Robin): 1.42 cm2, 1.51 cm2 AoV Area (VTI): 1.51 cm2, 1.54 cm2 Deceleration Bradley: 1.96 m/s2 Pressure Half-Time: 465.85 ms Peak Velocity(Antegrade Flow): 1.54 m/s, 1.69 m/s, 1.63 m/s, 1.69 m/s Peak Gradient(Antegrade Flow): 9.45 mm[Hg], 11.39 mm[Hg], 10.67 mm[Hg], 11.39 mm[Hg] Mean Velocity(Antegrade Flow): 1.05 m/s, 1.23 m/s, 1.19 m/s, 1.24 m/s Mean Gradient(Antegrade Flow): 5.16 mm[Hg], 6.72 mm[Hg], 6.24 mm[Hg], 6.8 (more content not included)... [facility] Radiology, Radiologi MD mario - 08/20/2024 [place] [address] Cardiology Report Signed Patient: JENIFER HERNANDEZ MR#: [id number] : 1940 Acct:[id number] Age/Sex: 84 / F ADM Date: 08/19/24 Loc: CARD Attending Dr: HERBER FLORES Ordering Physician: HERBER FLORES Date of Service: 08/19/24 Procedure(s): CA echo doppler complete Accession Number(s): [id number] cc: Allyssa Baez MANAGER OPERATIONAL; HERBER FLORES ECHOCARDIOGRAM REPORT PROCEDURE: CA ECHO DOPPLER COMPLETE INDICATIONS: Diastolic heart failure, Valve disease, Pulm HTN COMPARISON: None. DESCRIPTION: COMPLETE ECHOCARDIOGRAM Real-time transthoracic echocardiography with 2D, M-mode, spectral and color flow Doppler performed. QUALITY: Technical quality was good. LEFT VENTRICLE: Normal chamber size. Mild concentric left ventricular hypertrophy. Left ventricle is hyperdynamic without wall motion abnormalities. Calculated left ventricular ejection fraction is hyperdynamic at 73%. LV EF: 73% DIASTOLIC: Not adequately assessed due to heart rhythm. ATRIAL SEPTUM: Appears intact LEFT ATRIUM: Severe dilatation. RIGHT ATRIUM: Severe dilatation. RIGHT VENTRICLE: Normal chamber size. Right ventricle systolic function appears reduced. TRICUSPID VALVE: Normal mobility and thickness. No stenosis with severe regurgitation. Moderate pulmonary hypertension. RVSP 55mmHg MITRAL VALVE: Normal mobility and thickness. No evidence of mitral valve stenosis. Mild mitral annular calcification. Mild to moderate mitral regurgitation. AORTIC VALVE: Normal trileaflet appearance. Mildly calcified aortic valve. Mildly diminished mobility. Doppler velocity suggest mild aortic valve stenosis. DVI 0.5, TIN 1.5cm2, P/M gradient 11/7mmHg, Peak velocity1.7m/s. Mild aortic regurgitation. AORTIC ROOT: Normal diameter and appearance. PULMONIC VALVE: Normal thickness and mobility. No stenosis. Mild regurgitation. PERICARDIUM: No evidence of pericardial effusion. IVC: Mild dilatation. Measuring 2.4cm with partial collapse. PLEURA: CONCLUSION: Mild concentric left ventricle hypertrophy Hyperdynamic left ventricle without wall motion abnormalities, ejection fraction 73% Severe biatrial dilatation Normal right ventricle size with reduced systolic function Moderate pulmonary hypertension, RVSP 55 mmHg Mild to moderate mitral regurgitation Mild aortic stenosis, mean pressure gradient 7 mmHg, TIN 1.5 cm??? Mild aortic root insufficiency Severe tricuspid regurgitation Dilated inferior vena cava with partial respiratory variation consistent with elevated central venous pressure, RAP 15 mmHg Adult Echocardiography Procedure Report Left Ventricle LVEDD (3.7 - 5.6 cm): 3.68 cm LVESD (2.2 - 4.0 cm): 2.38 cm LVIVS thickness (0.6 - 1.2 cm): 1.16 cm LVPW thickness (0.5 - 1.0 cm): 1.27 cm e': 0.14 m/s E - e': 3.86 LVOT Max Gradient: 2.88 mm[Hg] LVOT Area (cm2): 0.85 m/s Peak Velocity (LVOT): 0.85 m/s Mean Velocity (LVOT): 0.64 m/s LVOT Diameter 1.87 cm Left Ventricular Ejection Fraction: 73.11 % Left Atrium LA Volume Index (2D A2C): 86.17 ml/m2 Left Atrium Systolic Dimension: 4.93 cm Mitral Valve MV E to A Ratio: 0.00 MV Max Gradient: MV Mean Gradient: Mitral Valve A-Wave Peak Velocity: 0.96 m/s Mitral Valve E-Wave Peak Velocity: 0.53 m/s Cardiovascular Orifice Area: Right Ventricle RV Internal Diastolic Dimension: 3.95 cm Aorta AO Root Diam: 3.03 cm Ascending Ao Diam: 3.10 cm Aortic Valve AoV Area (Peak Robin): 1.42 cm2, 1.51 cm2 AoV Area (VTI): 1.51 cm2, 1.54 cm2 Deceleration Bradley: 1.96 m/s2 Pressure Half-Time: 465.85 ms Peak Velocity(Antegrade Flow): 1.54 m/s, 1.69 m/s, 1.63 m/s, 1.69 m/s Peak Gradient(Antegrade Flow): 9.45 mm[Hg], 11.39 mm[Hg], 10.67 mm[Hg], 11.39 mm[Hg] Mean Velocity(Antegrade Flow): 1.05 m/s, 1.23 m/s, 1.19 m/s, 1.24 m/s Mean Gradient(Antegrade Flow): 5.16 mm[Hg], 6.72 mm[Hg], 6.24 mm[Hg], 6.85 mm[Hg] Velocity Time Integral: 32.68 cm, 33.45 cm, 32.94 cm, 33.99 cm Tricuspid Valve Peak Velocity (Regurgitant Flow): 2.70 m/s, 3.17 m/s, 3.12 m/s, 3.06 m/s Peak Velocity: Pulmonic Valve Mean Gradient: Mean Velocity: Peak Velocity: 0.96 m/s Peak Gradient: 3.77 mm[Hg], 3.63 mm[Hg] Right Atrium Right Atrium Systolic Pressure: 194.86 ml, 194.86 ml Dictated by: Birdie Chacon MD on 08/19/2024 at 18:22 Approved by: Birdie Chacon MD on 08/19/2024 at 18:33 Continued Report - Page [address] [address] Dictated By: Birdie Chacon M.D. Signed By: 08/19/241834 DD/ 32 TD/TT: Line Analyst: [facility] Radiology Study observation (narrative) [facility] CA ECHO DOPPLER COMPLETEOrde red By: Radiologist Radiology on 08-19-2024 [facility] Work Phone: HbA1c (Bld) [Mass fraction]o n 05-26-2024 Interpretation and review of laboratory results Abnormal [facility] - Hematology and Cell countson 05-26-2024 HbA1c (Bld) [Mass fraction] 6.30 % [facility] 36on 05-15-2024 36 Regarding lab result s from 05/13/2024: MD Radha Castro MA Her blood testing is okay. Continue the same treatment. Sent fax to Allyssa Baez's office making them aware Dr. Flores does not want to adjust patient's diuretics at this time. Normal [facility] ALL CBC WITH AUTO DIFFon BASOPHILS ABSOLUTE AUTO 0 [facility] Basophils/100 WBC (Bld) 0.3 % 0.2 - 2.0 % [facility] Eosinophils/100 WBC (Bld) 2 % 0.9 - 7.0 % [facility] Erythrocyte distribution width (RBC) [Ratio] 13.8 % 11.0 - 15.0 % [facility] Hematocrit (Bld) [Volume fraction] 38 % 36.0 - 48.0 % [facility] Hemoglobin (Bld) [Mass/Vol] 12.7 g/dL 12.0 - 16.0 g/dL [facility] IMMATURE GRANULOCYTES ABS AUTO 0.01 [facility] Immature granulocytes/100 WBC (Bld) 0.2 % 0.0 - 0.5 % [facility] Interpretation and review of laboratory results Abnormal [facility] LYMPHOCYTES ABSOLUTE AUTO 1.5 [facility] Lymphocytes/100 WBC (Bld) 25.7 % 20.5 - 60.0 % [facility] MCH (RBC) [Entitic mass] 33.3 pg 26.7 - 34.0 pg [facility] MCHC (RBC) [Mass/Vol] 33.4 g/dL 29.9 - 35.2 g/dL [facility] MCV (RBC) [Entitic vol] 99.7 fL High 81.0 - 99.0 fL [facility] MONOCYTES ABSOLUTE AUTO 1 High [facility] Monocytes/100 WBC (Bld) 16 % High 1.7 - 12.0 % [facility] NEUTROPHILS ABSOLUTE AUTO 3.4 [facility] Neutrophils/100 WBC (Bld) 55.8 % 43.0 - 75.0 % [facility] Platelet mean volume (Bld) [Entitic vol] 9 fL Low 9.5 - 13.5 fL [facility] TB EO # 0.1 [facility] TB PLT 161 [facility] RBC 3.81 Low [facility] WBC 6 [facility] ALL BASIC METABOLIC PANELon 02-04-2024 Anion gap [Moles/Vol] 9.8 mmol/L [facility] Calcium [Mass/Vol] 9.4 mg/dL 8.5 - 10. 1 mg/dL [facility] Chloride [Moles/Vol] 102 mmol/L 98 - 10 7 mmol/L [facility] CO2 [Moles/Vol] 34.9 mmol/L High 21.0 - 32.0 mmol/L [facility] Creatinine [Mass/Vol] 1.76 mg/dL High 0.55 - 1.02 mg/dL [facility] GFR/1.73 sq M.predicted CKD-EPI (S/P/Bld) [Vol rate/Area] 33 Low >=60 mL/min/1.73m 2 [facility] Glucose [Mass/Vol] 148 mg/dL High 74 - 106 mg/dL [facility] Interpretation and review of laboratory results Abnormal [facility] Potassium [Moles/Vol] 3.7 mmol/L 3.5 - 5.1 mmol/L [facility] Sodium [Moles/Vol] 143 mmol/L 136 - 145 mmol/L [facility] EGFR-NON AF [place] 27 Low >=60 mL/min/1.73m 2 [facility] Urea nitrogen [Mass/Vol] 36 mg/dL High 7.0 - 18.0 mg/dL [facility] Urea nitrogen/Creatinine [Mass ratio] 20.5 mg/mg [facility] Office Visiton 01-13-2024 Follow-up visit [id number] Jenifer Hernandez 1940 F Date Provider Department Center 01/13/2024 HERBER BERMUDEZ LEIGHA [facility] Family History Problem Relation Age of Onset Other Father Stroke Brother Family Status - Relation Status Age at Father Brother Level of Service:29863 ME OFFICE/OUTPATIENT ESTABLISHED MOD MDM 30 MIN Normal [facility] ALL BASIC METABOLIC PANELon 12-26-2023 Anion gap [Moles/Vol] 10.9 mmol/L [facility] Calcium [Mass/Vol] 9.6 mg/dL 8.5 - 10. 1 mg/dL [facility] Chloride [Moles/Vol] 102 mmol/L 98 - 10 7 mmol/L [facility] CO2 [Moles/Vol] 33.4 mmol/L High 21.0 - 32.0 mmol/L [facility] Creatinine [Mass/Vol] 1.54 mg/dL High 0.55 - 1.02 mg/dL [facility] GFR/1.73 sq M.predicted CKD-EPI (S/P/Bld) [Vol rate/Area] 39 Low >=60 mL/min/1.73m 2 [facility] Glucose [Mass/Vol] 99 mg/dL 74 - 106 mg/dL [facility] Interpretation and review of laboratory results Abnormal [facility] Potassium [Moles/Vol] 4.3 mmol/L 3.5 - 5.1 mmol/L [facility] Sodium [Moles/Vol] 142 mmol/L 136 - 145 mmol/L [facility] EGFR-NON AF [place] 32 Low >=60 mL/min/1.73m 2 [facility] Urea nitrogen [Mass/Vol] 34 mg/dL High 7.0 - 18.0 mg/dL [facility] Urea nitrogen/Creatinine [Mass ratio] 22.1 mg/mg [facility] ALL BASIC METABOLIC PANELon 12-18-2023 Anion gap [Moles/Vol] 13.5 mmol/L [facility] Calcium [Mass/Vol] 9.2 mg/dL 8.5 - 10. 1 mg/dL [facility] Chloride [Moles/Vol] 102 mmol/L 98 - 10 7 mmol/L [facility] CO2 [Moles/Vol] 31.4 mmol/L 21.0 - 32.0 mmol/L [facility] Creatinine [Mass/Vol] 1.68 mg/dL High 0.55 - 1.02 mg/dL [facility] GFR/1.73 sq M.predicted CKD-EPI (S/P/Bld) [Vol rate/Area] 35 Low >=60 mL/min/1.73m 2 [facility] Glucose [Mass/Vol] 137 mg/dL High 74 - 106 mg/dL [facility] Interpretation and review of laboratory results Abnormal [facility] Potassium [Moles/Vol] 3.9 mmol/L 3.5 - 5.1 mmol/L [facility] Sodium [Moles/Vol] 143 mmol/L 136 - 145 mmol/L [facility] EGFR-NON AF [place] 29 Low >=60 mL/min/1.73m 2 [facility] Urea nitrogen [Mass/Vol] 35 mg/dL High 7.0 - 18.0 mg/dL [facility] Urea nitrogen/Creatinine [Mass ratio] 20.8 mg/mg [facility] Office Visiton 12-18-2023 Follow-up visit [id number] HernandezJenifer S 1940 F Date Provider Department Center 12/18/2023 [id number] CHACON LEIGHA [facility] Family History Problem Relation Age of Onset Other Father Stroke Brother Family Status - Relation Status Age at Father Brother Level of Service:53804 ME OFFICE/OUTPATIENT ESTABLISHED MOD MDM 30 MIN Reason for Visit and Comments: Atrial Fibrillation [80] - Denies palpitations, syncope, and bleeding on Xarelto. Congestive Heart Failure [127] - Dr. Flores reduced Bumex at last visit in Sep. Had echo 2 weeks ago and needs more diuretic per Dr. Flores. She has gained 6# since last visit. Coronary Artery Disease [187] Hypertension [546994] Valve Disorder [3372] Dizziness [002877] - Denies syncope. Edema [[id number]] [facility] 36on 12-12-2023 36 Spoke with patient a nd got her in to see Dr. Chacon on 12/17. I asked her to have BMP prior to apt. Order faxed to [facility]. [facility] 36on 12-09-2023 36 Regarding echo resul t from 11/29/2023: MD Radha Castro MA She needs more diuretic, is she coming for a follow up? She is not scheduled to see you until 01/12. You are completely booked until then. Would you like her to see an MANAGER [employer]PER[employer] or Dr. Chacon in the meantime? [facility] ALL BASIC METABOLIC PANELon 10-28-2023 Anion gap [Moles/Vol] 8.1 mmol/L [facility] Calcium [Mass/Vol] 9.1 mg/dL 8.5 - 10. 1 mg/dL [facility] Chloride [Moles/Vol] 100 mmol/L 98 - 10 7 mmol/L [facility] CO2 [Moles/Vol] 33.6 mmol/L High 21.0 - 32.0 mmol/L [facility] Creatinine [Mass/Vol] 1.59 mg/dL High 0.55 - 1.02 mg/dL [facility] GFR/1.73 sq M.predicted CKD-EPI (S/P/Bld) [Vol rate/Area] 37 Low 60 - PINF [facility] Glucose [Mass/Vol] 93 mg/dL 74 - 106 mg/dL [facility] Interpretation and review of laboratory results Abnormal [facility] Potassium [Moles/Vol] 3.7 mmol/L 3.5 - 5.1 mmol/L [facility] Sodium [Moles/Vol] 138 mmol/L 136 - 145 mmol/L [facility] EGFR-NON AF [place] 31 Low 60 - PINF [facility] Urea nitrogen [Mass/Vol] 42.0 mg/dL High 7.0 - 18.0 mg/dL [facility] Urea nitrogen/Creatinine [Mass ratio] 26.4 mg/mg [facility] Office Visiton 09-25-2023 Follow-up visit [id number] Jenifer Hernandez 1940 F Date Provider Department Center 09/25/2023 367-HERBER FLORES LEIGHA [facility] Family History Problem Relation Age of Onset Other Father Stroke Brother Family Status - Relation Status Age at Father Brother Level of Service:71215 ME OFFICE/OUTPATIENT ESTABLISHED MOD MDM 30 MIN Normal 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 Additional Equipment Requests Normal [facility] HPon 09-10-2023 HP History Of Present Illness [...] 3 09/09/2023 ergocalciferol (Vitamin D-2) 1.25 MG (03825 Units) capsule Vitamin D2 1,250 mcg (50,000 [...] and tri (more content not included)... Normal [facility] HP ---- -------- Attestation signed by [...] a past medical history of Atrial fibrillation ([facility]), Coronary artery disease, and Heart valve disease. [...] 3 09/09/2023 ergocalciferol (Vitamin D-2) 1.25 MG (14695 Units) capsule Vitamin D2 1,250 mcg (50,000 [...] pulmonic regurgitation. Assessment/Plan Coronary artery disease of [place] artery of [place] heart with stable angina pectoris ([facility]/HCC) Chronic diastolic congestive heart failure (CMS/HCC) Shortness of breath Permanent atrial fibrillation ([facility]/HCC) Stage 3b chronic kidney disease ([facility]/HCC) Pulmonary hypertension (CMS/HCC) Severe TR Moderate MR Mild AR - Plan: RHC and ADWOA Primary hypertension - continue medical therapy History of coronary artery bypass surgery s/p CABG - continue medical therapy [facility] NURSNOTEon 09-10-2023 NURSNOTE RN educated pt on d/ c instructions. RN encouraged pt to voice any questions or concerns. Pt verbalizes no questions or concerns at this time. [facility] HARPREETE Spoke with Dr. Brii macias and john to discharge pt at 1600. [facility] PROF CHEM 8 (BAS METB)on Anion gap [Moles/Vol] 13.7 mmol/L Normal [facility] Comment on above: Performed By: #### B MP #### [facility] [address] [place] [address] Dr. Vega Sorensen Calcium [Mass/Vol] 9.2 mg/dL Normal 8.5-10.1 [facility] Comment on above: Performed By: #### B MP #### [facility] [address] [address] [address] Vega Sorensen Chloride [Moles/Vol] 100 mmol/L Normal 98-107 [facility] Comment on above: Performed By: #### B MP #### [facility] [address] [address] [address] Vega Sorensen CO2 [Moles/Vol] 30.2 mmol/L Normal 21.0-32.0 [facility] Comment on above: Performed By: #### B MP #### [facility] [address] [address] [address] Vega Sorensen Creatinine [Mass/Vol] 1.69 mg/dL Critically high 0.55-1.02 [facility] Comment on above: Performed By: #### B MP #### [facility] [address] [address] [address] Vega Sorensen EGFR-AF [place] 35 mL/min/1.73m2 Critically low >=60 [facility] Comment on above: Performed By: #### B MP #### [facility] [address] [address] [address] Vega Sorensen EGFR-NON AF [place] 29 mL/min/1.73m2 Critically low >=60 [facility] Comment on above: Performed By: #### B MP #### [facility] [address] [address] [address] Vega Sorensen Glucose [Mass/Vol] 162 mg/dL Critically high 74-106 [facility] Comment on above: Performed By: #### B MP #### [facility] [address] [address] [address] Vega Sorensen Potassium [Moles/Vol] 3.9 mmol/L Normal 3.5-5.1 [facility] Comment on above: Performed By: #### B MP #### [facility] [address] [address] [address] Vega Sorensen Sodium [Moles/Vol] 140 mmol/L Normal 136-145 [facility] Comment on above: Performed By: #### B MP #### [facility] [address] [address] [address] Vega Sorensen Urea nitrogen [Mass/Vol] 36.0 mg/dL Critically high 7.0-18.0 [facility] Comment on above: Performed By: #### B MP #### [facility] [address] [address] [address] Vega Sorensen Urea nitrogen/Creatinine [Mass ratio] 21.3 mg/mg Normal [facility] Comment on above: Performed By: #### B MP #### [facility] [address] [address] [address] Vega Sorensen PROF CHEM 8 (BAS METB)on Anion gap [Moles/Vol] 14.6 mmol/L Normal [facility] Comment on above: Performed By: #### B MP ####[facility] [address] [address]Dr. Vega Sorensen Calcium [Mass/Vol] 9.1 mg/dL Normal 8.5-10.1 [facility] Comment on above: Performed By: #### B MP ####[facility] [address] [address]Dr. Vega Sorensen Chloride [Moles/Vol] 99 mmol/L Normal 98-107 [facility] Comment on above: Performed By: #### B MP ####[facility] [address] [address]Dr. Vega Sorensen CO2 [Moles/Vol] 28.8 mmol/L Normal 21.0-32.0 [facility] Comment on above: Performed By: #### B MP ####[facility] [address] [place], [place] [address]Dr. Vega Sorensen Creatinine [Mass/Vol] 1.63 mg/dL Critically high 0.55-1.02 [facility] Comment on above: Performed By: #### B MP ####[facility] [address] [address]Dr. Vega Sorensen EGFR-AF [place] 37 mL/min/1.73m2 Critically low >=60 [facility] Comment on above: Performed By: #### B MP ####[facility] [address] [address]DrDanny Sorensen EGFR-NON AF [place] 30 mL/min/1.73m2 Critically low >=60 [facility] Comment on above: Performed By: #### B MP ####[facility] [address] [place], [place] [address]DrDanny Sorensen Glucose [Mass/Vol] 143 mg/dL Critically high 74-106 [facility] Comment on above: Performed By: #### B MP ####[facility] [address] [address]Dr. Vega Sorensen Potassium [Moles/Vol] 3.4 mmol/L Critically low 3.5-5.1 [facility] Comment on above: Performed By: #### B MP ####[facility] [address] [address]DrDanny Sorensen Sodium [Moles/Vol] 139 mmol/L Normal 136-145 [facility] Comment on above: Performed By: #### B MP ####[facility] [address] [address]Dr. Vega Sorensen Urea nitrogen [Mass/Vol] 38.0 mg/dL Critically high 7.0-18.0 [facility] Comment on above: Performed By: #### B MP ####[facility] [address] [address]Dr. Vega Sorensen Urea nitrogen/Creatinine [Mass ratio] 23.3 mg/mg Normal [facility] Comment on above: Performed By: #### B MP ####[facility] [address] [address]Dr. Vega Sorensen BNPon 08-18-2021 Natriuretic peptide B (Bld) [Mass/Vol] 5150.0 pg/mL Critically high <=1,800.0 [facility] Comment on above: Performed By: #### B MP, BNP #### [facility] [address] [place] [address] Dr. Vega Sorensen PROF CHEM 8 (BAS METB)on Anion gap [Moles/Vol] 12.9 mmol/L Normal [facility] Comment on above: Performed By: #### B MP, BNP #### [facility] [address] [place] [address] Dr. Vega Sorensen Calcium [Mass/Vol] 9.0 mg/dL Normal 8.5-10.1 [facility] Comment on above: Performed By: #### B MP, BNP #### [facility] [address] [address] [address] Vega Sorensen Chloride [Moles/Vol] 102 mmol/L Normal 98-107 [facility] Comment on above: Performed By: #### B MP, BNP #### [facility] [address] [address] [address] Vega Sorensen CO2 [Moles/Vol] 30.2 mmol/L Normal 21.0-32.0 [facility] Comment on above: Performed By: #### B MP, BNP #### [facility] [address] [address] [address] Vega Sorensen Creatinine [Mass/Vol] 1.90 mg/dL Critically high 0.55-1.02 [facility] Comment on above: Performed By: #### B MP, BNP #### [facility] [address] [place] [address] Dr. Vega Sorensen EGFR-AF [place] 31 mL/min/1.73m2 Critically low >=60 [facility] Comment on above: Performed By: #### B MP, BNP #### [facility] [address] [address] [address] Vega Sorensen EGFR-NON AF [place] 25 mL/min/1.73m2 Critically low >=60 [facility] Comment on above: Performed By: #### B MP, BNP #### [facility] [address] [address] [address] Vega Sorensen Glucose [Mass/Vol] 121 mg/dL Critically high 74-106 [facility] Comment on above: Performed By: #### B MP, BNP #### [facility] [address] [address] [address] Vega Sorensen Potassium [Moles/Vol] 4.1 mmol/L Normal 3.5-5.1 [facility] Comment on above: Performed By: #### B MP, BNP #### [facility] [address] [address] [address] Vega Sorensen Sodium [Moles/Vol] 141 mmol/L Normal 136-145 [facility] Comment on above: Performed By: #### B MP, BNP #### [facility] [address] [address] [address] Vega Sorensen Urea nitrogen [Mass/Vol] 34.0 mg/dL Critically high 7.0-18.0 [facility] Comment on above: Performed By: #### B MP, BNP #### [facility] [address] [address] [address] Vega Sorensen Urea nitrogen/Creatinine [Mass ratio] 17.9 mg/mg Normal [facility] Comment on above: Performed By: #### B MP, BNP #### [facility] [address] [address] [address] Vega Castaneda 03-30-2021 L ---- Specimen: [id number] Received: 03/30/21 Status: JORGE Wagner Num: [id number] Spec Type: Surgical Subm Dr: Chad Yeboah MD Tissues: A Soft Tissue/Surgical Margin-Other than Tumor,Mass,Lip or Rosita (ANTERIOR ORBIT Procedures: HE Stain, Gross/Micro L4 Patient Age/Sex Location Account Attending Physician Jenifer Hernandez 80/F [place] [id number] Chad Yeboah MD SPEC NUM: [id number] RECD: 03/30/21 STATUS: JORGE WAGNER NUM: [id number] RACHAEL: 03/30/[address]: Chad Yeboah MD ENTERED: 03/30/[address] [facility] [address]: HALLEY TYPE: Surgical DEPT: S ORDERED: [...] Fixative: 10% Neutral Buffered Formalin (SM/YJ) Specimen: [id number] Received: 03/30/21 Status: JORGE Wagner Num: [id number] Spec Type: Surgical Subm Dr: Chad Yeboah MD Tissues: A Soft Tissue/Surgical Margin-Other than Tumor,Mass,Lip or Rosita (ANTERIOR ORBIT Procedures: HE Stain, Gross/Micro L4 Patient: Jenifer Hernandez [place] [id number] (Continued) Specimen: Received: 03/30/21 (Continued) Signed (signature on file) Mili Peguero MD 03/31/21 1648 Specimen: Received: 03/30/21 Status: JORGE Wagner Num: [id number] Spec Type: Surgical Subm Dr: Chad Yeboah MD Tissues: A Soft Tissue/Surgical Margin-Other than Tumor,Mass,Lip or Rosita (ANTERIOR ORBIT Procedures: HE Stain, Gross/Micro L4 Patient: Jenifer Hernandez [id number] (Continued) Specimen: [id number] Received: 03/30/21-5824 (Continued) Microscopic Description One glass slide with [...] characteristics were determined by the Laboratory of [facility]. Immunohistochemistry assays have not been validated on decalcified tissue. Results should be interpreted with caution given the possibility of false negative results on decalcified specimens. They have not been cleared by the [place] Food and Drug Administration. The FDA has determined that such clearance or approval is not necessary. CPT Codes 56343, 35719, 20991, 85053 Specimen: [id number] Received: 03/30/21 Status: JORGE Wagner Num: [id number] Spec Type: Surgical Subm Dr: Chad Yeboah MD Tissues: A Soft Tissue/Surgical Margin-Other than Tumor,Mass,Lip or Rosita (ANTERIOR ORBIT Procedures: HE Stain, Gross/Micro L4 Patient: Jenifer Hernandez [id number] (Continued) (more content not included)... Normal [facility] CBC AUTO DIFFon 03-28-2021 BASO # 0.0 103/ul Normal 0.0-0.1 [facility] Comment on above: Performed By: #### C BC #### [facility] [address] [place] [address] Dr. Vega Sorensen Basophils/100 WBC (Bld) 0.5 % Normal 0.2-2.0 [facility] Comment on above: Performed By: #### C BC #### [facility] [address] [place] [address] Dr. Vega Sorensen EO # 0.1 103/ul Normal 0.0-0.7 [facility] Comment on above: Performed By: #### C BC #### [facility] [address] [place] [address] Dr. Vega Sorensen Eosinophils/100 WBC (Bld) 1.5 % Normal 0.9-7.0 [facility] Comment on above: Performed By: #### C BC #### [facility] [address] [place] [address] Dr. Vega Sorensen Erythrocyte distribution width (RBC) [Ratio] 13.7 % Normal 11.0-15.0 [facility] Comment on above: Performed By: #### C BC #### [facility] [address] [place] [address] Dr. Vega Sorensen Hematocrit (Bld) [Volume fraction] 38.1 % Normal 36.0-48.0 [facility] Comment on above: Performed By: #### C BC #### [facility] [address] [place] [address] Dr. Vega Sorensen Hemoglobin (Bld) [Mass/Vol] 12.5 g/dL Normal 12.0-16.0 [facility] Comment on above: Performed By: #### C BC #### [facility] [address] [place] [address] Dr. Vega Sorensen IG # 0.03 10e3/ul Normal 0.00-0.03 [facility] Comment on above: Performed By: #### C BC #### [facility] [address] [place] [address] Dr. Vega Sorensen IG % 0.4 % Normal 0.0-0.5 [facility] Comment on above: Performed By: #### C BC #### [facility] [address] [place] [address] Dr. Vega Sorensen LYMPH # 1.4 103/ul Normal 1.2-3.8 [facility] Comment on above: Performed By: #### C BC #### [facility] [address] [place] [address] Dr. Vega Sorensen Lymphocytes/100 WBC (Bld) 18.7 % Critically low 20.5-60.0 [facility] Comment on above: Performed By: #### C BC #### [facility] [address] [place] [address] Dr. Vega Sorensen MANUAL DIFF REQ NO Normal [facility] Comment on above: Performed By: #### C BC #### [facility] [address] [address] [address] Vega Sorensen MCH (RBC) [Entitic mass] 34.0 pg Normal 26.7-34.0 [facility] Comment on above: Performed By: #### C BC #### [facility] [address] [address] [address] Vega Sorensen MCHC (RBC) [Mass/Vol] 32.8 g/dL Normal 29.9-35.2 [facility] Comment on above: Performed By: #### C BC #### [facility] [address] [address] [address] Vgea Sorensen MCV (RBC) [Entitic vol] 103.5 fL Critically high 81.0-99.0 [facility] Comment on above: Performed By: #### C BC #### [facility] [address] [place] [address] Dr. Vega Sorensen MONO # 1.0 103/ul Critically high 0.3-0.8 [facility] Comment on above: Performed By: #### C BC #### [facility] [address] [place] [address] Dr. Vega Sorensen Monocytes/100 WBC (Bld) 12.8 % Critically high 1.7-12.0 [facility] Comment on above: Performed By: #### C BC #### [facility] [address] [place] [address] Dr. Vega Sorensen NEUT # 5.0 103/ul Normal 1.4-6.5 [facility] Comment on above: Performed By: #### C BC #### [facility] [address] [place] [address] Dr. Vega Sorensen Neutrophils/100 WBC (Bld) 66.1 % Normal 43.0-75.0 [facility] Comment on above: Performed By: #### C BC #### [facility] [address] [place] [address] Dr. Vega Sorensen Platelet mean volume (Bld) [Entitic vol] 9.2 fL Critically low 9.5-13.5 [facility] Comment on above: Performed By: #### C BC #### [facility] [address] [place] [address] Dr. Vega Sorensen PLT 180 103/ul Normal 150-450 [facility] Comment on above: Performed By: #### C BC #### [facility] [address] [place] [address] Dr. Vega Sorensen RBC 3.68 106/ul Critically low 4.20-5.40 [facility] Comment on above: Performed By: #### C BC #### [facility] [address] [place] [address] Dr. Vega Sorensen WBC 7.5 103/ul Normal 4.0-11.0 [facility] Comment on above: Performed By: #### C BC #### [facility] [address] [place] [address] Dr. Vega Sorensen BNPon 03-07-2021 Natriuretic peptide B (Bld) [Mass/Vol] 2297.0 pg/mL Critically high <=1,800.0 [facility] Comment on above: Performed By: #### B MP, BNP #### [facility] [address] [place] [address] Dr. Vega Sorensen PROF CHEM 8 (BAS METB)on Anion gap [Moles/Vol] 10.0 mmol/L Normal [facility] Comment on above: Performed By: #### B MP, BNP #### [facility] [address] [place] [address] Dr. Vega Sorensen Calcium [Mass/Vol] 9.1 mg/dL Normal 8.4-10.2 [facility] Comment on above: Performed By: #### B MP, BNP #### [facility] [address] [place] [address] Dr. Vega Sorensen Chloride [Moles/Vol] 101 mmol/L Normal 98-107 [facility] Comment on above: Performed By: #### B MP, BNP #### [facility] [address] [place] [address] Dr. Vega Sorensen CO2 [Moles/Vol] 31.8 mmol/L Critically high 22.0-30.0 [facility] Comment on above: Performed By: #### B MP, BNP #### [facility] [address] [place] [address] Dr. Vega Sorensen Creatinine [Mass/Vol] 1.70 mg/dL Critically high 0.52-1.04 [facility] Comment on above: Performed By: #### B MP, BNP #### [facility] [address] [place] [address] Dr. Vega Sorensen EGFR-[place] 35 mL/min/1.73m2 Critically low >=60 [facility] Comment on above: Performed By: #### B MP, BNP #### [facility] [address] [place] [address] Dr. Vega Sorensen EGFR-NON AF [place] 29 mL/min/1.73m2 Critically low >=60 [facility] Comment on above: Performed By: #### B MP, BNP #### [facility] [address] [place] [address] Dr. Vega Sorensen Glucose [Mass/Vol] 160 mg/dL Critically high 74-106 [facility] Comment on above: Performed By: #### B MP, BNP #### [facility] [address] [place] [address] Dr. Vega Sorensen Potassium [Moles/Vol] 3.8 mmol/L Normal 3.4-5.0 [facility] Comment on above: Performed By: #### B MP, BNP #### [facility] [address] [place] [address] Dr. Vega Sorensen Sodium [Moles/Vol] 139 mmol/L Normal 137-145 [facility] Comment on above: Performed By: #### B MP, BNP #### [facility] [address] [place] [address] Dr. Vega Sorensen Urea nitrogen [Mass/Vol] 36.0 mg/dL Critically high 7.0-17.0 [facility] Comment on above: Performed By: #### B MP, BNP #### [facility] [address] [address] [address] Vega Sorensen Urea nitrogen/Creatinine [Mass ratio] 21.2 mg/mg Normal [facility] Comment on above: Performed By: #### B MP, BNP #### [facility] [address] [address] [address] Vega Sorensen BASIC METABOLIC PANELon 11-2 Calcium [Mass/Vol] 8.7 mg/dL Normal 8.6-10.[address] [facility] Comment on above: Order Comment: No: D o not add to previous draw Performed By: #### 0 0071, 63934, 97327, 01421 #### [facility] [address] [place] [address], [facility] Chloride [Moles/Vol] 95 mmol/L Low 98-[address] [facility] Comment on above: Order Comment: No: D o not add to previous draw Performed By: #### 0 0071, 92873, 03882, 84415 #### [facility] [address] [place] [address], [place] CO2 [Moles/Vol] 33 mmol/L High 21-[address] [facility] Comment on above: Order Comment: No: D o not add to previous draw Performed By: #### 0 0071, 02872, 85683, 34635 #### [facility] [address] [place] [address], [place] Creatinine [Mass/Vol] 1.21 mg/dL High 0.60-1.[address] [facility] Comment on above: Order Comment: No: D o not add to previous draw Performed By: #### 0 0071, 43719, 47901, 23243 #### [facility] [address] [place] [address], [place] GFR/1.73 sq M predicted among blacks MDRD (S/P/Bld) [Vol rate/Area] 52 ml/min/1.73sq m Abnormal >[address] [facility] Comment on above: Order Comment: No: D o not add to previous draw Result Comment: Calc ulation may not be valid for patients over 70 years Performed By: #### 0 0071, 43724, 58211, 43315 #### [facility] [address] [place] [address], [facility] GFR/1.73 sq M predicted among non-blacks MDRD (S/P/Bld) [Vol rate/Area] 43 ml/min/1.73sq m Abnormal >[address] [facility] Comment on above: Order Comment: No: D o not add to previous draw Result Comment: Calc ulation may not be valid for patients over 70 years Performed By: #### 0 0071, 53861, 97347, 66422 #### [facility] [address] [place] [address], [facility] Glucose [Mass/Vol] 105 mg/dL High 70-[address] [facility] Comment on above: Order Comment: No: D o not add to previous draw Performed By: #### 0 0071, 16027, 61428, 13518 #### [facility] [address] [place] [address], [facility] Potassium [Moles/Vol] 3.2 mmol/L Low 3.5-5.[address] [facility] Comment on above: Order Comment: No: D o not add to previous draw Performed By: #### 0 0071, 66227, 66077, 45100 #### [facility] [address] [place] [address], [place] Sodium [Moles/Vol] 134 mmol/L Low 136-[address] [facility] Comment on above: Order Comment: No: D o not add to previous draw Performed By: #### 0 0071, 14409, 57370, 54169 #### [facility] [address] [place] [address], [place] Urea nitrogen [Mass/Vol] 22 mg/dL Normal 7-[address] [facility] Comment on above: Order Comment: No: D o not add to previous draw Performed By: #### 0 0071, 86253, 18880, 84179 #### [facility] [address] [place] [address], [place] Calcium [Mass/Vol] 8.5 mg/dL Low 8.6-10.[address] [facility] Comment on above: Order Comment: No: D o not add to previous draw Performed By: #### 0 0071, 50703, 19091, 36780 #### [facility] [address] [place] [address], [place] Chloride [Moles/Vol] 95 mmol/L Low 98-[address] [facility] Comment on above: Order Comment: No: D o not add to previous draw Performed By: #### 0 0071, 36927, 78634, 49684 #### [facility] [address] [place] [address], [place] CO2 [Moles/Vol] 34 mmol/L High 21-[address] [facility] Comment on above: Order Comment: No: D o not add to previous draw Performed By: #### 0 0071, 54036, 52971, 56221 #### [facility] [address] [place] [address], [facility] Creatinine [Mass/Vol] 1.15 mg/dL Normal 0.60-1.[address] [facility] Comment on above: Order Comment: No: D o not add to previous draw Performed By: #### 0 0071, 92396, 48621, 65093 #### [facility] [address] [place] [address], [place] GFR/1.73 sq M predicted among blacks MDRD (S/P/Bld) [Vol rate/Area] 55 ml/min/1.73sq m Abnormal >[address] [facility] Comment on above: Order Comment: No: D o not add to previous draw Result Comment: Calc ulation may not be valid for patients over 70 years Performed By: #### 0 0071, 61220, 09796, 57455 #### [facility] [address] [place] [address], [facility] GFR/1.73 sq M predicted among non-blacks MDRD (S/P/Bld) [Vol rate/Area] 45 ml/min/1.73sq m Abnormal >[address] [facility] Comment on above: Order Comment: No: D o not add to previous draw Result Comment: Calc ulation may not be valid for patients over 70 years Performed By: #### 0 0071, 34342, 18677, 23903 #### [facility] [address] [place] [address], [facility] Glucose [Mass/Vol] 109 mg/dL High 70-[address] [facility] Comment on above: Order Comment: No: D o not add to previous draw Performed By: #### 0 0071, 87605, 32834, 37587 #### [facility] [address] [place] [address], [facility] Potassium [Moles/Vol] 2.8 mmol/L Low 3.5-5.[address] [facility] Comment on above: Order Comment: No: D o not add to previous draw Performed By: #### 0 0071, 21165, 94581, 91912 #### [facility] [address] [place] [address], [facility] Sodium [Moles/Vol] 136 mmol/L Normal 136-[address] [facility] Comment on above: Order Comment: No: D o not add to previous draw Performed By: #### 0 0071, 24218, 64390, 03850 #### [facility] [address] [place] [address], [place] Urea nitrogen [Mass/Vol] 26 mg/dL High 7-[address] [facility] Comment on above: Order Comment: No: D o not add to previous draw Performed By: #### 0 0071, 60336, 26386, 25864 #### [facility] [address] [place] [address], [place] MAGNESIUM BLOODon 01-14-2019 Magnesium [Mass/Vol] 2.1 mg/dL Normal 1.9-2.[address] [facility] Comment on above: Order Comment: No: D o not add to previous draw Performed By: #### 0 0071, 94188, 46286, 07589 #### [facility] [address] [place] [address], [place] Magnesium [Mass/Vol] 1.6 mg/dL Low 1.9-2.[address] [facility] Comment on above: Order Comment: No: D o not add to previous draw Performed By: #### 0 0071, 79348, 84783, 86807 #### [facility] [address] [place] [address], [place] BASIC METABOLIC PANELon 11-2 Calcium [Mass/Vol] 8.6 mg/dL Normal 8.6-10.[address] [facility] Comment on above: Order Comment: No: D o not add to previous draw Performed By: #### 0 0071, 61467, 53175, 92284 #### [facility] [address] [place] [address], [place] Chloride [Moles/Vol] 96 mmol/L Low 98-[address] [facility] Comment on above: Order Comment: No: D o not add to previous draw Performed By: #### 0 0071, 47328, 16774, 20158 #### [facility] [address] [place] [address], [place] CO2 [Moles/Vol] 34 mmol/L High 21-[address] [facility] Comment on above: Order Comment: No: D o not add to previous draw Performed By: #### 0 0071, 51417, 06942, 96617 #### [facility] [address] [place] [address], [place] Creatinine [Mass/Vol] 0.97 mg/dL Normal 0.60-1.[address] [facility] Comment on above: Order Comment: No: D o not add to previous draw Performed By: #### 0 0071, 63490, 43886, 98020 #### [facility] [address] [place] [address], [place] GFR/1.73 sq M predicted among blacks MDRD (S/P/Bld) [Vol rate/Area] mL/min/{1.73_m2} Normal >[address] [facility] Comment on above: Order Comment: No: D o not add to previous draw Result Comment: Calc ulation may not be valid for patients over 70 years Performed By: #### 0 0071, 41478, 74918, 37422 #### [facility] [address] [place] [address], [facility] GFR/1.73 sq M predicted among non-blacks MDRD (S/P/Bld) [Vol rate/Area] 55 ml/min/1.73sq m Abnormal >[address] [facility] Comment on above: Order Comment: No: D o not add to previous draw Result Comment: Calc ulation may not be valid for patients over 70 years Performed By: #### 0 0071, 23657, 61326, 18336 #### [facility] [address] [place] [address], [place] Glucose [Mass/Vol] 93 mg/dL Normal 70-[address] [facility] Comment on above: Order Comment: No: D o not add to previous draw Performed By: #### 0 0071, 63871, 94258, 01914 #### [facility] [address] [place] [address], [place] Potassium [Moles/Vol] 3.4 mmol/L Low 3.5-5.[address] [facility] Comment on above: Order Comment: No: D o not add to previous draw Performed By: #### 0 0071, 73371, 75667, 39584 #### [facility] [address] [place] [address], [place] Sodium [Moles/Vol] 138 mmol/L Normal 136-[address] [facility] Comment on above: Order Comment: No: D o not add to previous draw Performed By: #### 0 0071, 17103, 82504, 20937 #### [facility] [address] [place] [address], [facility] Urea nitrogen [Mass/Vol] 23 mg/dL Normal 7-[address] [facility] Comment on above: Order Comment: No: D o not add to previous draw Performed By: #### 0 0071, 62377, 30786, 37580 #### [facility] [address] [place] [address], [facility] CBC COMPLETE BLOOD COUNTon 03-13-2018 Erythrocyte distribution width (RBC) [Ratio] Unable to calculate Normal 11.5-15.[address] [facility] Comment on above: Order Comment: No: D o not add to previous draw Performed By: #### 0 0071, 74930, 91540, 89090 #### [facility] [address] [place] [address], [facility] Hematocrit (Bld) [Volume fraction] 29.9 % Low 36.0-45.[address] [facility] Comment on above: Order Comment: No: D o not add to previous draw Performed By: #### 0 0071, 57597, 56811, 43405 #### [facility] [address] [place] [address], [facility] Hemoglobin (Bld) [Mass/Vol] 9.5 g/dL Low 12.0-15.[address] [facility] Comment on above: Order Comment: No: D o not add to previous draw Performed By: #### 0 0071, 74164, 38739, 56836 #### [facility] [address] [place] [address], [place] MCH (RBC) [Entitic mass] 30.6 pg Normal 27.0-33.[address] [facility] Comment on above: Order Comment: No: D o not add to previous draw Performed By: #### 0 0071, 58732, 00959, 84574 #### [facility] [address] [place] [address], [place] MCHC (RBC) [Mass/Vol] 31.8 g/dL Low 32.0-35.[address] [facility] Comment on above: Order Comment: No: D o not add to previous draw Performed By: #### 0 0071, 68188, 99191, 31917 #### [facility] [address] [place] [address], [facility] MCV (RBC) [Entitic vol] 96.5 fL Normal 82.0-98.[address] [facility] Comment on above: Order Comment: No: D o not add to previous draw Performed By: #### 0 0071, 82067, 77319, 54628 #### [facility] [address] [place] [address], [facility] Nucleated RBC/100 WBC (Bld) [Ratio] 0 % Normal 0-[address] [facility] Comment on above: Order Comment: No: D o not add to previous draw Performed By: #### 0 0071, 59840, 40089, 80962 #### [facility] [address] [place] [address], [facility] PLAT CNT 209 10*3/uL Normal 150-[address] [facility] Comment on above: Order Comment: No: D o not add to previous draw Performed By: #### 0 0071, 22961, 00671, 47929 #### [facility] [address] [facility] [place] [address], [facility] RBC (Bld) [#/Vol] 3.10 10*6/uL Low 3.80-5.[address] [facility] Comment on above: Order Comment: No: D o not add to previous draw Performed By: #### 0 0071, 33368, 37934, 93069 #### [facility] [address] [place] [address], [facility] WBC (Bld) [#/Vol] 7.86 10*3/uL Normal 4.00-10.[address] [facility] Comment on above: Order Comment: No: D o not add to previous draw Performed By: #### 0 0071, 88635, 65994, 06915 #### [facility] [address] [place] [address], [facility] BASIC METABOLIC PANELon 11-2 Calcium [Mass/Vol] 9.3 mg/dL Normal 8.6-10.[address] [facility] Comment on above: Order Comment: No: D o not add to previous draw Performed By: #### 0 0071, 18152, 06789, 10247 #### [facility] [address] [place] [address], [facility] Chloride [Moles/Vol] 103 mmol/L Normal 98-[address] [facility] Comment on above: Order Comment: No: D o not add to previous draw Performed By: #### 0 0071, 86681, 15701, 31145 #### [facility] [address] [place] [address], [facility] CO2 [Moles/Vol] 32 mmol/L High 21-[address] [facility] Comment on above: Order Comment: No: D o not add to previous draw Performed By: #### 0 0071, 56011, 70267, 01597 #### [facility] [address] [place] [address], [facility] Creatinine [Mass/Vol] 1.14 mg/dL Normal 0.60-1.[address] [facility] Comment on above: Order Comment: No: D o not add to previous draw Performed By: #### 0 0071, 26995, 17566, 36092 #### [facility] [address] [place] [address], [place] GFR/1.73 sq M predicted among blacks MDRD (S/P/Bld) [Vol rate/Area] 56 ml/min/1.73sq m Abnormal >[address] [facility] Comment on above: Order Comment: No: D o not add to previous draw Result Comment: Calc ulation may not be valid for patients over 70 years Performed By: #### 0 0071, 01797, 55457, 84631 #### [facility] [address] [place] [address], [place] GFR/1.73 sq M predicted among non-blacks MDRD (S/P/Bld) [Vol rate/Area] 46 ml/min/1.73sq m Abnormal >[address] [facility] Comment on above: Order Comment: No: D o not add to previous draw Result Comment: Calc ulation may not be valid for patients over 70 years Performed By: #### 0 0071, 34950, 56451, 23228 #### [facility] [address] [place] [address], [place] Glucose [Mass/Vol] 93 mg/dL Normal 70-[address] [facility] Comment on above: Order Comment: No: D o not add to previous draw Performed By: #### 0 0071, 07527, 45231, 33341 #### [facility] [address] [place] [address], [place] Potassium [Moles/Vol] 3.5 mmol/L Normal 3.5-5.[address] [facility] Comment on above: Order Comment: No: D o not add to previous draw Performed By: #### 0 0071, 32576, 28105, 65930 #### [facility] [address] [place] [address], [place] Sodium [Moles/Vol] 142 mmol/L Normal 136-[address] [facility] Comment on above: Order Comment: No: D o not add to previous draw Performed By: #### 0 0071, 60090, 02891, 25407 #### [facility] [address] [place] [address], [place] Urea nitrogen [Mass/Vol] 27 mg/dL High 7-[address] [facility] Comment on above: Order Comment: No: D o not add to previous draw Performed By: #### 0 0071, 04036, 89673, 77825 #### [facility] [address] [place] [address], [place] CBC COMPLETE BLOOD COUNTon 03-11-2018 Erythrocyte distribution width (RBC) [Ratio] Unable to calculate Normal 11.5-15.[address] [facility] Comment on above: Order Comment: No: D o not add to previous draw Performed By: #### 0 0071, 25248, 32944, 69605 #### [facility] [address] [place] [address], [facility] Hematocrit (Bld) [Volume fraction] 27.8 % Low 36.0-45.[address] [facility] Comment on above: Order Comment: No: D o not add to previous draw Performed By: #### 0 0071, 61056, 65848, 78251 #### [facility] [address] [place] [address], [facility] Hemoglobin (Bld) [Mass/Vol] 8.4 g/dL Low 12.0-15.[address] [facility] Comment on above: Order Comment: No: D o not add to previous draw Performed By: #### 0 0071, 72138, 94861, 97017 #### [facility] [address] [place] [address], [facility] MCH (RBC) [Entitic mass] 29.8 pg Normal 27.0-33.[address] [facility] Comment on above: Order Comment: No: D o not add to previous draw Performed By: #### 0 0071, 58930, 85623, 53394 #### [facility] [address] [place] [address], [facility] MCHC (RBC) [Mass/Vol] 30.2 g/dL Low 32.0-35.[address] [facility] Comment on above: Order Comment: No: D o not add to previous draw Performed By: #### 0 0071, 40247, 34825, 10534 #### [facility] [address] [place] [address], [facility] MCV (RBC) [Entitic vol] 98.6 fL High 82.0-98.[address] [facility] Comment on above: Order Comment: No: D o not add to previous draw Performed By: #### 0 0071, 51089, 73651, 97176 #### [facility] [address] [place] [address], [facility] Nucleated RBC/100 WBC (Bld) [Ratio] 0 % Normal 0-[address] [facility] Comment on above: Order Comment: No: D o not add to previous draw Performed By: #### 0 0071, 74116, 72543, 62789 #### [facility] [address] [place] [address], [facility] PLAT CNT 205 10*3/uL Normal 150-[address] [facility] Comment on above: Order Comment: No: D o not add to previous draw Performed By: #### 0 0071, 04865, 33410, 71972 #### [facility] [address] [place] [address], [facility] RBC (Bld) [#/Vol] 2.82 10*6/uL Low 3.80-5.[address] [facility] Comment on above: Order Comment: No: D o not add to previous draw Performed By: #### 0 0071, 87151, 94158, 44638 #### [facility] [address] [place] [address], [facility] WBC (Bld) [#/Vol] 7.35 10*3/uL Normal 4.00-10.[address] [facility] Comment on above: Order Comment: No: D o not add to previous draw Performed By: #### 0 0071, 80662, 97275, 33962 #### [facility] [address] [place] [address], [place] BASIC METABOLIC PANELon 11-2 Calcium [Mass/Vol] 9.0 mg/dL Normal 8.6-10.[address] [facility] Comment on above: Order Comment: No: D o not add to previous draw Performed By: #### 0 0071, 51446, 83480, 01544 #### [facility] [address] [place] [address], [place] Chloride [Moles/Vol] 106 mmol/L Normal 98-[address] [facility] Comment on above: Order Comment: No: D o not add to previous draw Performed By: #### 0 0071, 79931, 38387, 65789 #### [facility] [address] [place] [address], [place] CO2 [Moles/Vol] 29 mmol/L Normal 21-[address] [facility] Comment on above: Order Comment: No: D o not add to previous draw Performed By: #### 0 0071, 66917, 77234, 78868 #### [facility] [address] [place] [address], [place] Creatinine [Mass/Vol] 1.33 mg/dL High 0.60-1.[address] [facility] Comment on above: Order Comment: No: D o not add to previous draw Performed By: #### 0 0071, 08016, 48404, 53522 #### [facility] [address] [place] [address], [place] GFR/1.73 sq M predicted among blacks MDRD (S/P/Bld) [Vol rate/Area] 47 ml/min/1.73sq m Abnormal >[address] [facility] Comment on above: Order Comment: No: D o not add to previous draw Result Comment: Calc ulation may not be valid for patients over 70 years Performed By: #### 0 0071, 48972, 97679, 76667 #### [facility] [address] [place] [address], [place] GFR/1.73 sq M predicted among non-blacks MDRD (S/P/Bld) [Vol rate/Area] 39 ml/min/1.73sq m Abnormal >[address] [facility] Comment on above: Order Comment: No: D o not add to previous draw Result Comment: Calc ulation may not be valid for patients over 70 years Performed By: #### 0 0071, 68806, 47561, 65255 #### [facility] [address] [place] [address], [place] Glucose [Mass/Vol] 92 mg/dL Normal 70-[address] [facility] Comment on above: Order Comment: No: D o not add to previous draw Performed By: #### 0 0071, 39983, 73561, 26353 #### [facility] [address] [place] [address], [place] Potassium [Moles/Vol] 3.9 mmol/L Normal 3.5-5.[address] [facility] Comment on above: Order Comment: No: D o not add to previous draw Performed By: #### 0 0071, 24346, 82000, 01107 #### [facility] [address] [place] [address], [place] Sodium [Moles/Vol] 141 mmol/L Normal 136-[address] [facility] Comment on above: Order Comment: No: D o not add to previous draw Performed By: #### 0 0071, 42284, 18242, 52339 #### [facility] [address] [place] [address], [place] Urea nitrogen [Mass/Vol] 34 mg/dL High 7-[address] [facility] Comment on above: Order Comment: No: D o not add to previous draw Performed By: #### 0 0071, 07557, 96086, 52489 #### [facility] [address] [place] [address], [place] CBC COMPLETE BLOOD COUNTon 03-10-2018 Erythrocyte distribution width (RBC) [Ratio] ---- Normal 11.5-15.[address] [facility] Comment on above: Order Comment: No: D o not add to previous draw Performed By: #### 0 0071, 68615, 05800, 84012 #### [facility] [address] [place] [address], [place] Hematocrit (Bld) [Volume fraction] 27.6 % Low 36.0-45.[address] [facility] Comment on above: Order Comment: No: D o not add to previous draw Performed By: #### 0 0071, 93404, 86252, 22481 #### [facility] [address] [place] [address], [facility] Hemoglobin (Bld) [Mass/Vol] 8.2 g/dL Low 12.0-15.[address] [facility] Comment on above: Order Comment: No: D o not add to previous draw Performed By: #### 0 0071, 44052, 91078, 08237 #### [facility] [address] [facility] [place] [address], [facility] MCH (RBC) [Entitic mass] 29.6 pg Normal 27.0-33.[address] [facility] Comment on above: Order Comment: No: D o not add to previous draw Performed By: #### 0 0071, 66288, 33464, 39224 #### [facility] [address] [place] [address], [facility] MCHC (RBC) [Mass/Vol] 29.7 g/dL Low 32.0-35.[address] [facility] Comment on above: Order Comment: No: D o not add to previous draw Performed By: #### 0 0071, 90189, 53781, 79598 #### [facility] [address] [facility] [place] [address], [facility] MCV (RBC) [Entitic vol] 99.6 fL High 82.0-98.[address] [facility] Comment on above: Order Comment: No: D o not add to previous draw Performed By: #### 0 0071, 80623, 10282, 28502 #### [facility] [address] [facility] [place] [address], [facility] Nucleated RBC/100 WBC (Bld) [Ratio] 0 % Normal 0-[address] [facility] Comment on above: Order Comment: No: D o not add to previous draw Performed By: #### 0 0071, 35569, 05704, 90149 #### [facility] [address] [place] [address], [facility] PLAT CNT 213 10*3/uL Normal 150-[address] [facility] Comment on above: Order Comment: No: D o not add to previous draw Performed By: #### 0 0071, 38862, 33169, 28132 #### [facility] [address] [place] [address], [facility] RBC (Bld) [#/Vol] 2.77 10*6/uL Low 3.80-5.[address] [facility] Comment on above: Order Comment: No: D o not add to previous draw Performed By: #### 0 0071, 71553, 25508, 60649 #### [facility] [address] [place] [address], [facility] WBC (Bld) [#/Vol] 7.75 10*3/uL Normal 4.00-10.[address] [facility] Comment on above: Order Comment: No: D o not add to previous draw Performed By: #### 0 0071, 78666, 86114, 10589 #### [facility] [address] [place] [address], [facility] CBC COMPLETE BLOOD COUNTon 03-09-2018 Erythrocyte distribution width (RBC) [Ratio] 27.1 % High 11.5-15.[address] [facility] Comment on above: Order Comment: No: D o not add to previous draw Performed By: #### 0 0071, 83444, 97796, 09654 #### [facility] [address] [place] [address], [place] Hematocrit (Bld) [Volume fraction] 29.0 % Low 36.0-45.[address] [facility] Comment on above: Order Comment: No: D o not add to previous draw Performed By: #### 0 0071, 42730, 84876, 70238 #### [facility] [address] Hemoglobin (Bld) [Mass/Vol] 8.9 g/dL Low 12.0-15.[address] [facility] Comment on above: Order Comment: No: D o not add to previous draw Performed By: #### 0 0071, 14108, 32303, 66815 #### [facility] [address] [place] [id number], [facility] MCH (RBC) [Entitic mass] 30.5 pg Normal 27.0-33.[address] [facility] Comment on above: Order Comment: No: D o not add to previous draw Performed By: #### 0 0071, 36166, 40393, 67718 #### [facility] [address] [place] [address], [facility] MCHC (RBC) [Mass/Vol] 30.7 g/dL Low 32.0-35.[address] [facility] Comment on above: Order Comment: No: D o not add to previous draw Performed By: #### 0 0071, 13847, 92741, 65217 #### [facility] [address] [place] [address], [facility] MCV (RBC) [Entitic vol] 99.3 fL High 82.0-98.[address] [facility] Comment on above: Order Comment: No: D o not add to previous draw Performed By: #### 0 0071, 29882, 45336, 75961 #### [facility] [address] [facility] [place] [address], [facility] Nucleated RBC/100 WBC (Bld) [Ratio] 0 % Normal 0-[address] [facility] Comment on above: Order Comment: No: D o not add to previous draw Performed By: #### 0 0071, 94993, 71398, 29258 #### [facility] [address] [place] [id number], [facility] PLAT CNT 232 10*3/uL Normal 150-[address] [facility] Comment on above: Order Comment: No: D o not add to previous draw Performed By: #### 0 0071, 05945, 48049, 52995 #### [facility] [address] [place] [address], [facility] RBC (Bld) [#/Vol] 2.92 10*6/uL Low 3.80-5.[address] [facility] Comment on above: Order Comment: No: D o not add to previous draw Performed By: #### 0 0071, 16271, 44638, 91722 #### [facility] [address] [place] [address], [facility] WBC (Bld) [#/Vol] 9.20 10*3/uL Normal 4.00-10.[address] [facility] Comment on above: Order Comment: No: D o not add to previous draw Performed By: #### 0 0071, 98172, 44005, 26318 #### [facility] [address] [facility] [place], [place] [address] [place] [address] COMP METABOLIC PANELon 01-07 Albumin [Mass/Vol] 3.7 g/dL Normal 3.5-5.[address] [facility] Comment on above: Performed By: #### 0 0071, 84718, 18832, 43270 #### [facility] [address] [facility] [place] [place] [address], [facility] ALKALINE PHOSPH 107 IU/L High 34-[address] [facility] Comment on above: Performed By: #### 0 0071, 61368, 50921, 20081 #### [facility] [address] [address], [facility] ALT [Catalytic activity/Vol] 16 U/L Normal 7-[address] [facility] Comment on above: Performed By: #### 0 0071, 30178, 30921, 30611 #### [facility] [address] [place] [address], [facility] AST [Catalytic activity/Vol] 22 U/L Normal 13-[address] [facility] Comment on above: Performed By: #### 0 0071, 56626, 27668, 49906 #### [facility] [address] [place] [address], [place] Bilirubin [Mass/Vol] 1.1 mg/dL High 0.3-1.[address] [facility] Comment on above: Performed By: #### 0 0071, 25506, 88905, 09758 #### [facility] [address] [place] [address], [place] Calcium [Mass/Vol] 8.8 mg/dL Normal 8.6-10.[address] [facility] Comment on above: Performed By: #### 0 0071, 50700, 90114, 74117 #### [facility] [address] [place] [address], [place] Chloride [Moles/Vol] 107 mmol/L Normal 98-[address] [facility] Comment on above: Performed By: #### 0 0071, 68524, 96275, 20800 #### [facility] [address] [place] [address], [place] CO2 [Moles/Vol] 28 mmol/L Normal 21-[address] [facility] Comment on above: Performed By: #### 0 0071, 26920, 06487, 84026 #### [facility] [address] [place] [address], [place] Creatinine [Mass/Vol] 1.73 mg/dL High 0.60-1.[address] [facility] Comment on above: Performed By: #### 0 0071, 91457, 18762, 34895 #### [facility] [address] [place] [address], [place] GFR/1.73 sq M predicted among blacks MDRD (S/P/Bld) [Vol rate/Area] 34 ml/min/1.73sq m Abnormal >[address] [facility] Comment on above: Result Comment: Calc ulation may not be valid for patients over 70 years Performed By: #### 0 0071, 02452, 07480, 43710 #### [facility] [address] [place] [address], [place] GFR/1.73 sq M predicted among non-blacks MDRD (S/P/Bld) [Vol rate/Area] 28 ml/min/1.73sq m Abnormal >[address] [facility] Comment on above: Result Comment: Calc ulation may not be valid for patients over 70 years Performed By: #### 0 0071, 59425, 43373, 56719 #### [facility] [address] [place] [address], [place] Glucose [Mass/Vol] 98 mg/dL Normal 70-[address] [facility] Comment on above: Performed By: #### 0 0071, 30990, 60331, 78891 #### [facility] [address] [place] [address], [place] Potassium [Moles/Vol] 4.6 mmol/L Normal 3.5-5.[address] [facility] Comment on above: Performed By: #### 0 0071, 94595, 20635, 56584 #### [facility] [address] [place] [address], [place] Protein [Mass/Vol] 6.6 g/dL Normal 6.0-8.[address] [facility] Comment on above: Performed By: #### 0 0071, 03427, 69300, 48288 #### [facility] [address] [place] [address], [place] Sodium [Moles/Vol] 141 mmol/L Normal 136-[address] [facility] Comment on above: Performed By: #### 0 0071, 51653, 83485, 59643 #### [facility] [address] [place] [address], [place] Urea nitrogen [Mass/Vol] 42 mg/dL High 7-[address] [facility] Comment on above: Performed By: #### 0 0071, 55484, 53163, 30172 #### [facility] [address] Cardiovascular Lab Reporton 01-07-2019 Cardiovascular Lab Report [facility]: [id number] Physician: Kevon Trejo Abd Department of MD [facility] Service Date: 01/07/2019 Division of Birthdate: 1940 Cardiology Room #: [id number] Adult Cardiovascular Services [facility] [address] [facility]. [place] [address] Cardiovascular Laboratory Report CONTAINER REPAIRER: Dr. Dedrick Washington, full time. INDICATION: This is an 78-year-old female with [...] The patient was also notified that a full time will be assisting during the course of [...] to the right internal jugular vein. Then, Aquilla sheath was inserted 6-Urugu[place] x 11 cm. Then, under fluoroscopy guidance, [...] Serrano MD Date Trans: 01/07/2019 03:58 P/sha [id number] cc: Edu Odonnell D.O. [address] [place], [place] [address] [address] Normal [address] [facility] MAGNESIUM BLOODon 01-07-2019 Magnesium [Mass/Vol] 1.9 mg/dL Normal 1.9-2.[address] [facility] Comment on above: Order Comment: No: D o not add to previous draw Performed By: #### 0 0071, 87998, 77069, 72703 #### [facility] [address] [place] [address], [facility] PHOSPHORUS BLOODon 11-20-201 9 Phosphate [Mass/Vol] 2.8 mg/dL Normal 2.5-5.[address] [facility] Comment on above: Order Comment: No: D o not add to previous draw Performed By: #### 0 0071, 56245, 94213, 10710 #### [facility] [address] [place] [address], [facility] APTTon 01-06-2019 aPTT Coag (Bld) [Time] 33.6 s Normal 25.0-35.[address] [facility] Comment on above: Order Comment: No: [...] THIS PURPOSE. Performed By: #### 0 0071, 51141, 30690, 01325 #### [facility] [address] [facility] [place] [address], [facility] BASIC METABOLIC PANELon 12-19 Calcium [Mass/Vol] 8.8 mg/dL Normal 8.6-10.[address] [facility] Comment on above: Order Comment: No: D o not add to previous draw Performed By: #### 0 0071, 58213, 06010, 47707 #### [facility] [address] [place] [address], [facility] Chloride [Moles/Vol] 103 mmol/L Normal 98-[address] [facility] Comment on above: Order Comment: No: D o not add to previous draw Performed By: #### 0 0071, 73611, 43258, 20361 #### [facility] [address] [place] [address], [facility] CO2 [Moles/Vol] 24 mmol/L Normal 21-[address] [facility] Comment on above: Order Comment: No: D o not add to previous draw Performed By: #### 0 0071, 60260, 42935, 37036 #### [facility] [address] [place] [address], [place] Creatinine [Mass/Vol] 3.14 mg/dL High 0.60-1.[address] [facility] Comment on above: Order Comment: No: D o not add to previous draw Performed By: #### 0 0071, 43412, 52099, 90108 #### [facility] [address] [place] [address], [place] GFR/1.73 sq M predicted among blacks MDRD (S/P/Bld) [Vol rate/Area] 17 ml/min/1.73sq m Abnormal >[address] [facility] Comment on above: Order Comment: No: D o not add to previous draw Result Comment: Calc ulation may not be valid for patients over 70 years Performed By: #### 0 0071, 15953, 86346, 38298 #### [facility] [address] [place] [address], [place] GFR/1.73 sq M predicted among non-blacks MDRD (S/P/Bld) [Vol rate/Area] 14 ml/min/1.73sq m Abnormal >[address] [facility] Comment on above: Order Comment: No: D o not add to previous draw Result Comment: Calc ulation may not be valid for patients over 70 years Performed By: #### 0 0071, 37403, 43243, 42635 #### [facility] [address] [place] [address], [place] Glucose [Mass/Vol] 123 mg/dL High 70-[address] [facility] Comment on above: Order Comment: No: D o not add to previous draw Performed By: #### 0 0071, 42862, 65252, 72647 #### [facility] [address] [place] [address], [place] Potassium [Moles/Vol] 4.5 mmol/L Normal 3.5-5.[address] [facility] Comment on above: Order Comment: No: D o not add to previous draw Performed By: #### 0 0071, 64392, 27485, 98509 #### [facility] [address] [facility]. [address] Sodium [Moles/Vol] 135 mmol/L Low 136-[address] [facility] Comment on above: Order Comment: No: D o not add to previous draw Performed By: #### 0 0071, 10307, 45443, 55854 #### [facility] [address] [facility]. [address] Urea nitrogen [Mass/Vol] 60 mg/dL High 7-[address] [facility] Comment on above: Order Comment: No: D o not add to previous draw Performed By: #### 0 0071, 24364, 68309, 05827 #### [facility] [address] [facility]. [address] CBC W/DIFFon 01-06-2019 ABS BASOPHILS 0.0 10*3/uL Normal 0.0-0.[address] [facility] Comment on above: Order Comment: No: D o not add to previous draw Performed By: #### 0 0071, 79513, 33273, 76566 #### [facility] [address] [facility]. [address] ABS IMM GRANS 0.1 10*3/uL Normal 0.0-0.[address] [facility] Comment on above: Order Comment: No: D o not add to previous draw Performed By: #### 0 0071, 53130, 50453, 12594 #### [facility] [address] [facility]. [address] ABS NEUTROPHILS 6.9 10*3/uL Normal 1.6-7.[address] [facility] Comment on above: Order Comment: No: D o not add to previous draw Performed By: #### 0 0071, 49035, 25125, 71972 #### [facility] [address] [facility]. [address] ACANTHOCYTES Slight Normal [facility] Comment on above: Order Comment: No: D o not add to previous draw Performed By: #### 0 0071, 55710, 23841, 02652 #### [facility] [address] [place] [address], [facility] ANISO Marked Normal [facility] Comment on above: Order Comment: No: D o not add to previous draw Performed By: #### 0 0071, 51606, 13419, 47562 #### [facility] [address] [place] [address], [facility] Basophils/100 WBC (Bld) 0.2 % Normal 0.0-1.[address] [facility] Comment on above: Order Comment: No: D o not add to previous draw Performed By: #### 0 0071, 19407, 82371, 98452 #### [facility] [address] [place] [address], [facility] ELLIPTOCYTES Slight Normal [facility] Comment on above: Order Comment: No: D o not add to previous draw Performed By: #### 0 0071, 13856, 16922, 98819 #### [facility] [address] [place] [address], [facility] Eosinophils (Bld) [#/Vol] 0.2 10*3/uL Normal 0.0-0.[address] [facility] Comment on above: Order Comment: No: D o not add to previous draw Performed By: #### 0 0071, 80830, 81162, 87772 #### [facility] [address] [place] [address], [facility] Eosinophils/100 WBC (Bld) 1.6 % Normal 0.0-6.[address] [facility] Comment on above: Order Comment: No: D o not add to previous draw Performed By: #### 0 0071, 32129, 90383, 71664 #### [facility] [address] Erythrocyte distribution width (RBC) [Ratio] 27.6 % High 11.5-15.[address] [facility] Comment on above: Order Comment: No: D o not add to previous draw Performed By: #### 0 0071, 79089, 57942, 99318 #### [facility] [address] [place] [address], [facility] Hematocrit (Bld) [Volume fraction] 27.2 % Low 36.0-45.[address] [facility] Comment on above: Order Comment: No: D o not add to previous draw Performed By: #### 0 0071, 75056, 64082, 91341 #### [facility] [address] Hemoglobin (Bld) [Mass/Vol] 8.2 g/dL Low 12.0-15.[address] [facility] Comment on above: Order Comment: No: D o not add to previous draw Performed By: #### 0 0071, 77298, 72140, 87535 #### [facility] [address] [facility]. [address] IMMATURE GRANS 0.5 % Normal 0.0-1.[address] [facility] Comment on above: Order Comment: No: D o not add to previous draw Performed By: #### 0 0071, 65308, 37203, 46444 #### [facility] [address] [facility] [place] [address], [facility] Lymphocytes (Bld) [#/Vol] 1.2 10*3/uL Normal 1.2-4.[address] [facility] Comment on above: Order Comment: No: D o not add to previous draw Performed By: #### 0 0071, 64419, 95680, 24951 #### [facility] [address] [facility] [place] [address], [facility] Lymphocytes/100 WBC (Bld) 12.5 % Low 20.0-45.[address] [facility] Comment on above: Order Comment: No: D o not add to previous draw Performed By: #### 0 0071, 07465, 60029, 98802 #### [facility] [address] [facility] [place] [address], [facility] MCH (RBC) [Entitic mass] 29.5 pg Normal 27.0-33.[address] [facility] Comment on above: Order Comment: No: D o not add to previous draw Performed By: #### 0 0071, 76694, 80547, 40353 #### [facility] [address] [place] [address], [facility] MCHC (RBC) [Mass/Vol] 30.1 g/dL Low 32.0-35.[address] [facility] Comment on above: Order Comment: No: D o not add to previous draw Performed By: #### 0 0071, 39310, 64637, 90179 #### [facility] [address] [facility]. [address] MCV (RBC) [Entitic vol] 97.8 fL Normal 82.0-98.[address] [facility] Comment on above: Order Comment: No: D o not add to previous draw Performed By: #### 0 0071, 91652, 99390, 73711 #### [facility] [address] [facility] [place] [address], [facility] Monocytes (Bld) [#/Vol] 1.4 10*3/uL High 0.1-1.[address] [facility] Comment on above: Order Comment: No: D o not add to previous draw Performed By: #### 0 0071, 93689, 24540, 55960 #### [facility] [address] [facility] [place] [address], [facility] MONOS 14.5 % High 5.0-12.[address] [facility] Comment on above: Order Comment: No: D o not add to previous draw Performed By: #### 0 0071, 75727, 31606, 13301 #### [facility] [address] [facility] [place] [address], [facility] Neutrophils/100 WBC (Bld) 70.7 % Normal 40.0-72.[address] [facility] Comment on above: Order Comment: No: D o not add to previous draw Performed By: #### 0 0071, 11277, 85022, 74628 #### [facility] [address] [place] [id number], [facility] Nucleated RBC/100 WBC (Bld) [Ratio] 0 % Normal 0-[address] [facility] Comment on above: Order Comment: No: D o not add to previous draw Performed By: #### 0 0071, 16853, 86494, 99808 #### [facility] [address] [place] [address], [facility] OVALOCYTES Slight Normal [facility] Comment on above: Order Comment: No: D o not add to previous draw Performed By: #### 0 0071, 85047, 53383, 94695 #### [facility] [address] [place] [address], [facility] PLAT CNT 236 10*3/uL Normal 150-[address] [facility] Comment on above: Order Comment: No: D o not add to previous draw Performed By: #### 0 0071, 16437, 57301, 29362 #### [facility] [address] [place] [address], [facility] POIK Moderate Normal [facility] Comment on above: Order Comment: No: D o not add to previous draw Performed By: #### 0 0071, 79659, 64562, 88517 #### [facility] [address] [facility] [address], [facility] POLY Slight Normal [facility] Comment on above: Order Comment: No: D o not add to previous draw Performed By: #### 0 0071, 81799, 46728, 07187 #### [facility] [address] [place] [address], [facility] RBC (Bld) [#/Vol] 2.78 10*6/uL Low 3.80-5.[address] [facility] Comment on above: Order Comment: No: D o not add to previous draw Performed By: #### 0 0071, 19633, 92930, [id number] #### [facility] [address] [place] [address], [facility] SCHISTOCYTES Slight Normal [facility] Comment on above: Order Comment: No: D o not add to previous draw Performed By: #### 0 0071, 83598, 41412, 51610 #### [facility] [address] [place] [address], [facility] WBC (Bld) [#/Vol] 9.76 10*3/uL Normal 4.00-10.[address] [facility] Comment on above: Order Comment: No: D o not add to previous draw Performed By: #### 0 0071, 98860, 09713, 52575 #### [facility] [address] [place] [address], [facility] CPKon 01-06-2019 CK [Catalytic activity/Vol] 26 U/L Low 30-[address] [facility] Comment on above: Performed By: #### 0 0071, 22024, 76702, 45605 #### [facility] [address] [place] [address], [facility] FERRITINon 01-06-2019 Ferritin [Mass/Vol] 288 ng/mL Normal 11-[address] [facility] Comment on above: Performed By: #### 0 0071, 87515, 28124, 25146 #### [facility] [address] [place] [address], [facility] MAGNESIUM BLOODon 01-06-2019 Magnesium [Mass/Vol] 2.1 mg/dL Normal 1.9-2.[address] [facility] Comment on above: Order Comment: No: D o not add to previous draw Performed By: #### 0 0071, 10540, 29513, 02092 #### [facility] [address] PHOSPHORUS BLOODon 9 Phosphate [Mass/Vol] 3.9 mg/dL Normal 2.5-5.[address] [facility] Comment on above: Order Comment: No: D o not add to previous draw Performed By: #### 0 0071, 06301, 30215, 66260 #### [facility] [address] [facility]. [address] PROTHROMBIN TIMEon 9 INR Coag (PPP) [Relative time] 2.22 {INR} High 0.91-1.[address] [facility] Comment on above: Order Comment: No: [...] CHEST 1995;108:[id number]. Performed By: #### 0 0071, 57972, 31964, 72737 #### [facility] [address] [place] [address], [facility] PT Coag (PPP) [Time] 25.0 s High 12.3-14.[address] [facility] Comment on above: Order Comment: No: D o not add to previous draw Result Comment: ALL RESULTS MUST BE INTERPRETED WITH RESPECT TO BLOOD DRAWING ARTIFACT OR DILUTION ERROR OF ANTICOAGULANT AT THE TIME OF SAMPLING. Performed By: #### 0 0071, 31692, 69326, 38137 #### [facility] [address] [place] [address], [facility] TIBC- INCLUDES IRONon 2018 FE SATURATION 25 % Normal 20-[address] [facility] Comment on above: Performed By: #### 0 0071, 34714, 68617, 54053 #### [facility] [address] [place] [address], [facility] Iron [Mass/Vol] 87 ug/dL Normal 50-[address] [facility] Comment on above: Performed By: #### 0 0071, 43630, 92044, 83517 #### [facility] [address] [place] [address], [facility] TIBC 345 mcg/dL Normal 250-[address] [facility] Comment on above: Performed By: #### 0 0071, 41268, 25624, 78577 #### [facility] [address] [place] [address], [facility] UIBC 258 mcg/dL Normal 155-[address] [facility] Comment on above: Performed By: #### 0 0071, 29668, 09027, 07874 #### [facility] [address] [facility] [place] [address], [facility] TRANSFERRINon 01-06-2019 Transferrin [Mass/Vol] 282 mg/dL Normal 203-[address] [facility] Comment on above: Performed By: #### 0 0071, 53321, 36186, 04599 #### [facility] [address] [place] [address], [facility] ANAon 01-05-2019 Nuclear Ab IF (S) [Titer] <1:40 Normal <1:40,1:[address] [facility] Comment on above: Order Comment: No: D o not add to previous draw Performed By: #### 0 0071, 32991, 36727, 04734 #### [facility] [address] [place] [address], [facility] BASIC METABOLIC PANELon 12-19 Calcium [Mass/Vol] 8.5 mg/dL Low 8.6-10.[address] [facility] Comment on above: Order Comment: No: D o not add to previous draw Performed By: #### 5 0608 #### [facility] [address] [place] [address], [place] Chloride [Moles/Vol] 103 mmol/L Normal 98-[address] [facility] Comment on above: Order Comment: No: D o not add to previous draw Performed By: #### 5 0608 #### [facility] [address] [place] [address], [facility] CO2 [Moles/Vol] 24 mmol/L Normal 21-[address] [facility] Comment on above: Order Comment: No: D o not add to previous draw Performed By: #### 5 0608 #### [facility] [address] [place] [address], [facility] Creatinine [Mass/Vol] 2.90 mg/dL High 0.60-1.[address] [facility] Comment on above: Order Comment: No: D o not add to previous draw Performed By: #### 5 0608 #### [facility] [address] [place] [address], [place] GFR/1.73 sq M predicted among blacks MDRD (S/P/Bld) [Vol rate/Area] 19 ml/min/1.73sq m Abnormal >[address] [facility] Comment on above: Order Comment: No: D o not add to previous draw Result Comment: Calc ulation may not be valid for patients over 70 years Performed By: #### 5 0608 #### [facility] [address] [place] [address], [place] GFR/1.73 sq M predicted among non-blacks MDRD (S/P/Bld) [Vol rate/Area] 16 ml/min/1.73sq m Abnormal >[address] [facility] Comment on above: Order Comment: No: D o not add to previous draw Result Comment: Calc ulation may not be valid for patients over 70 years Performed By: #### 5 0608 #### [facility] [address] [place] [address], [facility] Glucose [Mass/Vol] 142 mg/dL High 70-[address] [facility] Comment on above: Order Comment: No: D o not add to previous draw Performed By: #### 5 0608 #### [facility] [address] [place] [address], [facility] Potassium [Moles/Vol] 4.6 mmol/L Normal 3.5-5.[address] [facility] Comment on above: Order Comment: No: D o not add to previous draw Performed By: #### 5 0608 #### [facility] [address] [place] [address], [facility] Sodium [Moles/Vol] 134 mmol/L Low 136-[address] [facility] Comment on above: Order Comment: No: D o not add to previous draw Performed By: #### 5 0608 #### [facility] [address] [place] [address], [facility] Urea nitrogen [Mass/Vol] 53 mg/dL High 7-[address] [facility] Comment on above: Order Comment: No: D o not add to previous draw Performed By: #### 5 0608 #### [facility] [address] [place] [address], [facility] BNP (B-TYPE NATRIURETIC PEPT HARDY)on 01-05-2019 Natriuretic peptide B (Bld) [Mass/Vol] 616 pg/mL High 0-[address] [facility] Comment on above: Order Comment: No: D o not add to previous draw Result Comment: Give n the appropriate clinical setting a BNP result of >100 pg/mL indicates congestive heart failure. Performed By: #### 5 0608 #### [facility] [address] CBC W/DIFFon 01-05-2019 ABS BASOPHILS 0.0 10*3/uL Normal 0.0-0.[address] [facility] Comment on above: Performed By: #### 5 0608 #### [facility] [address] [place] [address], [facility] ABS IMM GRANS 0.1 10*3/uL Normal 0.0-0.[address] [facility] Comment on above: Performed By: #### 5 0608 #### [facility] [address] [place] [address], [facility] ABS NEUTROPHILS 7.6 10*3/uL Normal 1.6-7.[address] [facility] Comment on above: Performed By: #### 5 0608 #### [facility] [address] [facility]. [address] ACANTHOCYTES Slight Normal [facility] Comment on above: Performed By: #### 5 0608 #### [facility] [address] [facility]. [address] ANISO Marked Normal [facility] Comment on above: Performed By: #### 5 0608 #### [facility] [address] [facility] [place] [address], [facility] Basophils/100 WBC (Bld) 0.2 % Normal 0.0-1.[address] [facility] Comment on above: Performed By: #### 5 0608 #### [facility] [address] [place] [address], [facility] THERESA CELLS Slight Normal [facility] Comment on above: Performed By: #### 5 0608 #### [facility] [address] [facility] [place] [address], [facility] ELLIPTOCYTES Slight Normal [facility] Comment on above: Performed By: #### 5 0608 #### [facility] [address] [place] [address], [facility] Eosinophils (Bld) [#/Vol] 0.0 10*3/uL Normal 0.0-0.[address] [facility] Comment on above: Performed By: #### 5 0608 #### [facility] [address] [place] [address], [facility] Eosinophils/100 WBC (Bld) 0.2 % Normal 0.0-6.[address] [facility] Comment on above: Performed By: #### 5 0608 #### [facility] [address] Erythrocyte distribution width (RBC) [Ratio] 27.2 % High 11.5-15.[address] [facility] Comment on above: Result Comment: Resu lt changed by ALFRED on 01/05/2019 02:09. The previous value was ----. Performed By: #### 5 0608 #### [facility] [address] Hematocrit (Bld) [Volume fraction] 27.5 % Low 36.0-45.[address] [facility] Comment on above: Result Comment: Resu lt changed by ALFRED on 01/05/2019 02:09. The previous value was 27.7. Performed By: #### 5 0608 #### [facility] [address] Hemoglobin (Bld) [Mass/Vol] 8.2 g/dL Low 12.0-15.[address] [facility] Comment on above: Performed By: #### 5 0608 #### [facility] [address] [place] [address], [facility] IMMATURE GRANS 0.6 % Normal 0.0-1.[address] [facility] Comment on above: Performed By: #### 5 0608 #### [facility] [address] [place] [address], [facility] Lymphocytes (Bld) [#/Vol] 0.9 10*3/uL Low 1.2-4.[address] [facility] Comment on above: Performed By: #### 5 0608 #### [facility] [address] [facility] [place] [address], [facility] Lymphocytes/100 WBC (Bld) 9.0 % Low 20.0-45.[address] [facility] Comment on above: Performed By: #### 5 0608 #### [facility] [address] [facility] [place] [address], [facility] MCH (RBC) [Entitic mass] 29.3 pg Normal 27.0-33.[address] [facility] Comment on above: Result Comment: Resu lt changed by [email or web address] on 01/05/2019 02:09. The previous value was 29.1. Performed By: #### 5 0608 #### [facility] [address] MCHC (RBC) [Mass/Vol] 29.8 g/dL Low 32.0-35.[address] [facility] Comment on above: Result Comment: Resu lt changed by [email or web address] on 01/05/2019 02:09. The previous value was 29.6. Performed By: #### 5 0608 #### [facility] [address] MCV (RBC) [Entitic vol] 98.2 fL High 82.0-98.[address] [facility] Comment on above: Performed By: #### 5 0608 #### [facility] [address] [place] [address], [facility] Monocytes (Bld) [#/Vol] 1.1 10*3/uL High 0.1-1.[address] [facility] Comment on above: Performed By: #### 5 0608 #### [facility] [address] [place] [address], [facility] MONOS 11.8 % Normal 5.0-12.[address] [facility] Comment on above: Performed By: #### 5 0608 #### [facility] [address] [place] [id number], [facility] Neutrophils/100 WBC (Bld) 78.2 % High 40.0-72.[address] [facility] Comment on above: Performed By: #### 5 0608 #### [facility] [address] [place] [id number], [facility] Nucleated RBC/100 WBC (Bld) [Ratio] 0 % Normal 0-[address] [facility] Comment on above: Performed By: #### 5 0608 #### [facility] [address] [facility] [place] [address], [facility] OTHER 1 Checked by Los navarro M.D. Normal [facility] Comment on above: Result Comment: Resu lt changed by BARBIE on 01/05/2019 09:19. The previous value was Preliminary report; verified report to follow. Performed By: #### 5 0608 #### [facility] [address] [place] [address], [facility] OVALOCYTES Slight Normal [facility] Comment on above: Performed By: #### 5 0608 #### [facility] [address] [facility] [place] [address], [facility] PLAT CNT 263 10*3/uL Normal 150-[address] [facility] Comment on above: Performed By: #### 5 0608 #### [facility] [address] [facility] [place] [address], [facility] POIK Moderate Normal [facility] Comment on above: Performed By: #### 5 0608 #### [facility] [address] [place] [id number], [facility] RBC (Bld) [#/Vol] 2.80 10*6/uL Low 3.80-5.[address] [facility] Comment on above: Result Comment: Resu lt changed by PLEEMarce on 01/05/2019 02:09. The previous value was 2.82. Performed By: #### 5 0608 #### [facility] [address] [facility] [place] [address], [facility] SCHISTOCYTES Slight Normal [facility] Comment on above: Performed By: #### 5 0608 #### [facility] [address] [facility] [place] [address], [facility] WBC (Bld) [#/Vol] 9.70 10*3/uL Normal 4.00-10.[address] [facility] Comment on above: Result Comment: Resu lt changed by [email or web address] on 01/05/2019 02:09. The previous value was 9.82. Performed By: #### 5 0608 #### [facility] [address] [facility] [place] [address], [facility] COMPLEMENT 3on 01-05-2019 COMPLEMENT 3 89 mg/dL Normal 79-[address] [facility] Comment on above: Order Comment: No: D o not add to previous draw Performed By: #### 0 0071, 94201, 50413, 18613 #### [facility] [address] [facility] [address], [facility] COMPLEMENT 4on 01-05-2019 COMPLEMENT 4 16 mg/dL Normal 16-[address] [facility] Comment on above: Order Comment: No: D o not add to previous draw Performed By: #### 0 0071, 57159, 78076, 29460 #### [facility] [address] [facility] [address], [facility] CT CHEST WO CONTRASTon 01-05 CT CHEST WO CONTRAST [facility] Department of Radiology [address] [place] [address] == Patient Name: JENIFER HERNANDEZ : 1940 Sex: F Age: Race: NA Pt. Location: [id number] Patient Status: I Ordered Date: 01/05/2019 8:15:00 [...] anasarca. Electronically signed by:Christina Jules. Transcribed by: [email or web address], User Resident: Electronically Signed by: CHRISTINA JULES @ 01/06/2019 11:13 AM Normal [facility] Comment on above: Order Comment: No: D o not add to previous draw IMMUNOFIXATION BLOODon 01-05 IgA [Mass/Vol] 233 mg/dL Normal 60-[address] [facility] Comment on above: Order Comment: No: D o not add to previous draw Performed By: #### 0 0071, 74912, 59349, 21100 #### [facility] [address] [place] [address], [facility] IgG [Mass/Vol] 1240 mg/dL Normal 591-[address] [facility] Comment on above: Order Comment: No: D o not add to previous draw Performed By: #### 0 0071, 63826, 15922, 80975 #### [facility] [address] [place] [address], [place] IgM [Mass/Vol] 52 mg/dL Low 54-[address] [facility] Comment on above: Order Comment: No: D o not add to previous draw Performed By: #### 0 0071, 98692, 09149, 85347 #### [facility] [address] [place] [address], [place] IMMUNOFIXATION Serum Immunofixation reveals: A NORMAL PATTERN. SEE SEPARATE REPORT Normal [facility] Comment on above: Order Comment: No: D o not add to previous draw Performed By: #### 0 0071, 40912, 27193, 18251 #### [facility] [address] [place] [address], [facility] KAPPA LIGHT CHN 7.65 mg/dL High 0.33-1.[address] [facility] Comment on above: Order Comment: No: D o not add to previous draw Result Comment: KF R epeated for verification. Performed By: #### 0 0071, 12286, 31321, 94151 #### [facility] [address] [place] [address], [facility] KAPPA/LAMDBA RATIO 2.37 RATIO High 0.26-1.[address] [facility] Comment on above: Order Comment: No: D o not add to previous draw Result Comment: For patients with renal impairment, use a kappa/lambda ratio of 0.37-3.10 Performed By: #### 0 0071, 11235, 73467, 81954 #### [facility] [address] [facility] [place] [address], [facility] LAMBDA LIGHT CHN 3.23 mg/dL High 0.57-2.[address] [facility] Comment on above: Order Comment: No: D o not add to previous draw Result Comment: LF R epeated for verification. Performed By: #### 0 0071, 12025, 69025, 01824 #### [facility] [address] [facility] [place] [address], [facility] OSMOLALITY URINEon 9 Osmolality [Osmolality] 325 mOsm/kg Normal 50-[address] [facility] Comment on above: Order Comment: No: D o not add to previous draw Performed By: #### 0 0071, 69419, 65714, 12833 #### [facility] [address] [facility] [place] [address], [facility] PROTEIN ELECT Joseph 01-05-2019 Protein [Mass/Vol] 5.9 g/dL Low 6.0-8.[address] [facility] Comment on above: Order Comment: No: D o not add to previous draw Performed By: #### 0 0071, 37054, 46987, 57036 #### [facility] [address] [place] [address], [facility] Protein [Mass/Vol] Normal [facility] Comment on above: Order Comment: No: D o not add to previous draw Result Comment: Hypo albuminemia and greatly elevated alpha 2 fraction suggests nephrosis. Performed By: #### 0 0071, 05490, 00271, 90562 #### [facility] [address] [place] [address], [facility] PROTEIN ELECT URon 9 Protein [Mass/Vol] No abnormal bands seen. Normal [facility] Comment on above: Order Comment: No: D o not add to previous draw Performed By: #### 0 0071, 20714, 26589, 20135 #### [facility] [address] [place] [address], [facility] Protein [Mass/Vol] 379.0 mg/dL Normal [facility] Comment on above: Order Comment: No: D o not add to previous draw Result Comment: Ther e are no established reference values for random urine specimens Performed By: #### 0 0071, 31128, 48829, 24921 #### [facility] [address] [place] [address], [facility] SODIUM URINE RANDOMon 2018 Sodium (U) [Moles/Vol] 14 mmol/L Normal [facility] Comment on above: Order Comment: No: D o not add to previous draw Result Comment: Ther e are no established reference values for random urine specimens Performed By: #### 0 0071, 00889, 64619, 83782 #### [facility] [address] [place] [address], [place] URINALYSIS REFLEXon 01-06-20 19 Appearance (U) CLOUDY Abnormal CLEAR [facility] Comment on above: Order Comment: No: D o not add to previous draw Performed By: #### 0 0071, 77165, 06519, 06935 #### [facility] [address] [place] [address], [place] Bilirubin [Mass/Vol] Negative Normal NEGATIVE [facility] Comment on above: Order Comment: No: D o not add to previous draw Performed By: #### 0 0071, 78817, 69207, 65358 #### [facility] [address] [place] [address], [place] BLOOD Negative Normal NEGATIVE [facility] Comment on above: Order Comment: No: D o not add to previous draw Performed By: #### 0 0071, 31742, 15164, 78708 #### [facility] [address] [place] [address], [place] CALCIUM OXALATE CRYSTAL OCC Abnormal NONE SEEN [facility] Comment on above: Order Comment: No: D o not add to previous draw Performed By: #### 0 0071, 18904, 77757, 97861 #### [facility] [address] [place] [address], [facility] Color (U) FARHEEN Abnormal YELLOW [facility] Comment on above: Order Comment: No: D o not add to previous draw Performed By: #### 0 0071, 52702, 74332, 49071 #### [facility] [address] [facility] [place] [address], [place] EPIS MANY Abnormal FEW,OCC,NONE SEEN [facility] Comment on above: Order Comment: No: D o not add to previous draw Performed By: #### 0 0071, 42580, 67461, 26133 #### [facility] [address] [place] [address], [place] Glucose [Mass/Vol] Negative Normal NEGATIVE [facility] Comment on above: Order Comment: No: D o not add to previous draw Performed By: #### 0 0071, 46612, 32565, 09137 #### [facility] [address] [place] [address], [place] GRANULAR CASTS 6-8 Abnormal NONE SEEN [facility] Comment on above: Order Comment: No: D o not add to previous draw Performed By: #### 0 0071, 37073, 79923, 42834 #### [facility] [address] [place] [address], [facility] HYALINE CASTS 4-6 Abnormal NONE SEEN [facility] Comment on above: Order Comment: No: D o not add to previous draw Performed By: #### 0 0071, 90027, 15434, 04900 #### [facility] [address] [place] [address], [facility] KETONE Negative Normal NEGATIVE [facility] Comment on above: Order Comment: No: D o not add to previous draw Performed By: #### 0 0071, 47423, 44334, 20925 #### [facility] [address] [place] [address], [facility] LEUK ARASH LARGE Abnormal NEGATIVE [facility] Comment on above: Order Comment: No: D o not add to previous draw Performed By: #### 0 0071, 06053, 77732, 75260 #### [facility] [address] [facility] [address], [facility] MUCUS THREADS FEW Abnormal NONE SEEN [facility] Comment on above: Order Comment: No: D o not add to previous draw Performed By: #### 0 0071, 91480, 80644, 81251 #### [facility] [address] [facility] [address], [facility] Nitrite Ql (U) Negative Normal NEGATIVE [facility] Comment on above: Order Comment: No: D o not add to previous draw Performed By: #### 0 0071, 70096, 28179, 48292 #### [facility] [address] [facility] [place] [address], [facility] pH (Bld) 5.0 Normal 5.0-8.[address] [facility] Comment on above: Order Comment: No: D o not add to previous draw Performed By: #### 0 0071, 79626, 89181, 14713 #### [facility] [address] [place] [address], [facility] Protein (U) [Mass/Vol] 100 mg/dL Abnormal NEGATIVE [facility] Comment on above: Order Comment: No: D o not add to previous draw Performed By: #### 0 0071, 03692, 41142, 71194 #### [facility] [address] [place] [address], [facility] RBC (U) [#/Vol] 0-2 Abnormal NONE SEEN [facility] Comment on above: Order Comment: No: D o not add to previous draw Performed By: #### 0 0071, 62486, 81015, 56613 #### [facility] [address] [place] [address], [facility] SPEC GRAV 1.015 Normal 1.015-1.[address] [facility] Comment on above: Order Comment: No: D o not add to previous draw Performed By: #### 0 0071, 86078, 62157, 62168 #### [facility] [address] [place] [address], [facility] UA COMMENT 2 2-4 Waxy casts Normal [facility] Comment on above: Order Comment: No: D o not add to previous draw Performed By: #### 0 0071, 80742, 58450, 71428 #### [facility] [address] [place] [address], [facility] WBC UA 51-100 Abnormal NONE SEEN [facility] Comment on above: Order Comment: No: D o not add to previous draw Performed By: #### 0 0071, 06239, 50597, 25226 #### [facility] [address] [place] [address], [facility] URINE CONCEPCION STAIN/EOSon EOSINOPHIL SMEAR NONE SEEN Normal NSN [facility] Comment on above: Order Comment: No: D o not add to previous draw [place] Normal [facility] Comment on above: Order Comment: No: D o not add to previous draw Result Comment: Test Performed by [facility] [address] [place] [address] - Released 01/06/2019 17:38 US RENALon 01-05-[address] [facility] Department of Radiology [address] [place] [address] == Patient Name: JENIFER HERNANDEZ : 1940 Sex: F Age: Race: NA Pt. Location: [id number] Patient Status: I Ordered Date: 01/05/2019 2:15:00 [...] effusion. Electronically signed by:Los Lutz. Transcribed by: [email or web address], User Resident: Electronically Signed by: LOS LUTZ @ 01/05/2019 03:14 PM Normal [facility] Comment on above: Order Comment: No: D o not add to previous draw BASIC METABOLIC PANELon 11-0 Calcium [Mass/Vol] 9.2 mg/dL Normal 8.6-10.[address] [facility] Comment on above: Order Comment: No: D o not add to previous draw Performed By: #### 5 0608 #### [facility] [address] [place] [address], [place] Chloride [Moles/Vol] 106 mmol/L Normal 98-[address] [facility] Comment on above: Order Comment: No: D o not add to previous draw Performed By: #### 5 0608 #### [facility] [address] [place] [address], [place] CO2 [Moles/Vol] 31 mmol/L Normal 21-[address] [facility] Comment on above: Order Comment: No: D o not add to previous draw Performed By: #### 5 0608 #### [facility] [address] [place] [address], [place] Creatinine [Mass/Vol] 1.01 mg/dL Normal 0.60-1.[address] [facility] Comment on above: Order Comment: No: D o not add to previous draw Performed By: #### 5 0608 #### [facility] [address] [place] [address], [place] GFR/1.73 sq M predicted among blacks MDRD (S/P/Bld) [Vol rate/Area] mL/min/{1.73_m2} Normal >[address] [facility] Comment on above: Order Comment: No: D o not add to previous draw Result Comment: Calc ulation may not be valid for patients over 70 years Performed By: #### 5 0608 #### [facility] [address] [place] [address], [place] GFR/1.73 sq M predicted among non-blacks MDRD (S/P/Bld) [Vol rate/Area] 53 ml/min/1.73sq m Abnormal >[address] [facility] Comment on above: Order Comment: No: D o not add to previous draw Result Comment: Calc ulation may not be valid for patients over 70 years Performed By: #### 5 0608 #### [facility] [address] [place] [address], [place] Glucose [Mass/Vol] 93 mg/dL Normal 70-[address] [facility] Comment on above: Order Comment: No: D o not add to previous draw Performed By: #### 5 0608 #### [facility] [address] [place] [address], [place] Potassium [Moles/Vol] 3.2 mmol/L Low 3.5-5.[address] [facility] Comment on above: Order Comment: No: D o not add to previous draw Performed By: #### 5 0608 #### [facility] [address] [place] [address], [place] Sodium [Moles/Vol] 145 mmol/L Normal 136-[address] [facility] Comment on above: Order Comment: No: D o not add to previous draw Performed By: #### 5 0608 #### [facility] [address] [place] [address], [place] Urea nitrogen [Mass/Vol] 31 mg/dL High 7-[address] [facility] Comment on above: Order Comment: No: D o not add to previous draw Performed By: #### 5 0608 #### [facility] [address] [place] [address], [place] CBC COMPLETE BLOOD COUNTon 02-23-2018 Erythrocyte distribution width (RBC) [Ratio] 17.2 % High 11.5-15.[address] [facility] Comment on above: Order Comment: No: D o not add to previous draw Performed By: #### 5 0608 #### [facility] [address] [address], [facility] Hematocrit (Bld) [Volume fraction] 27.2 % Low 36.0-45.[address] [facility] Comment on above: Order Comment: No: D o not add to previous draw Performed By: #### 5 0608 #### [facility] [address] [address], [facility] Hemoglobin (Bld) [Mass/Vol] 7.9 g/dL Low 12.0-15.[address] [facility] Comment on above: Order Comment: No: D o not add to previous draw Performed By: #### 5 0608 #### [facility] [address] [place] [address], [facility] MCH (RBC) [Entitic mass] 27.1 pg Normal 27.0-33.[address] [facility] Comment on above: Order Comment: No: D o not add to previous draw Performed By: #### 5 0608 #### [facility] [address] [facility] [place] [place] [address], [facility] MCHC (RBC) [Mass/Vol] 29.0 g/dL Low 32.0-35.[address] [facility] Comment on above: Order Comment: No: D o not add to previous draw Performed By: #### 5 0608 #### [facility] [address] [facility] [place] [address], [facility] MCV (RBC) [Entitic vol] 93.2 fL Normal 82.0-98.[address] [facility] Comment on above: Order Comment: No: D o not add to previous draw Performed By: #### 5 0608 #### [facility] [address] [place] [address], [facility] Nucleated RBC/100 WBC (Bld) [Ratio] 0 % Normal 0-[address] [facility] Comment on above: Order Comment: No: D o not add to previous draw Performed By: #### 5 0608 #### [facility] [address] [place] [address], [facility] PLAT CNT 238 10*3/uL Normal 150-[address] [facility] Comment on above: Order Comment: No: D o not add to previous draw Performed By: #### 5 0608 #### [facility] [address] [place] [id number], [facility] RBC (Bld) [#/Vol] 2.92 10*6/uL Low 3.80-5.[address] [facility] Comment on above: Order Comment: No: D o not add to previous draw Performed By: #### 5 0608 #### [facility] [address] [place] [address], [facility] WBC (Bld) [#/Vol] 7.05 10*3/uL Normal 4.00-10.[address] [facility] Comment on above: Order Comment: No: D o not add to previous draw Performed By: #### 5 0608 #### [facility] [address] [place] [address], [facility] BASIC METABOLIC PANELon 11-0 -2019 Calcium [Mass/Vol] 9.5 mg/dL Normal 8.6-10.[address] [facility] Comment on above: Order Comment: No: D o not add to previous draw Performed By: #### 5 0608 #### [facility] [address] [place] [id number], [facility] Chloride [Moles/Vol] 103 mmol/L Normal 98-[address] [facility] Comment on above: Order Comment: No: D o not add to previous draw Performed By: #### 5 0608 #### [facility] [address] [place] [id number], [facility] CO2 [Moles/Vol] 34 mmol/L High 21-[address] [facility] Comment on above: Order Comment: No: D o not add to previous draw Performed By: #### 5 0608 #### [facility] [address] [place] [address], [place] Creatinine [Mass/Vol] 1.09 mg/dL Normal 0.60-1.[address] [facility] Comment on above: Order Comment: No: D o not add to previous draw Performed By: #### 5 0608 #### [facility] [address] [place] [address], [place] GFR/1.73 sq M predicted among blacks MDRD (S/P/Bld) [Vol rate/Area] 59 ml/min/1.73sq m Abnormal >[address] [facility] Comment on above: Order Comment: No: D o not add to previous draw Result Comment: Calc ulation may not be valid for patients over 70 years Performed By: #### 5 0608 #### [facility] [address] [place] [address], [facility] GFR/1.73 sq M predicted among non-blacks MDRD (S/P/Bld) [Vol rate/Area] 48 ml/min/1.73sq m Abnormal >[address] [facility] Comment on above: Order Comment: No: D o not add to previous draw Result Comment: Calc ulation may not be valid for patients over 70 years Performed By: #### 5 0608 #### [facility] [address] [place] [address], [place] Glucose [Mass/Vol] 149 mg/dL High 70-[address] [facility] Comment on above: Order Comment: No: D o not add to previous draw Performed By: #### 5 0608 #### [facility] [address] [place] [address], [place] Potassium [Moles/Vol] 3.9 mmol/L Normal 3.5-5.[address] [facility] Comment on above: Order Comment: No: D o not add to previous draw Performed By: #### 5 0608 #### [facility] [address] Sodium [Moles/Vol] 144 mmol/L Normal 136-[address] [facility] Comment on above: Order Comment: No: D o not add to previous draw Performed By: #### 5 0608 #### [facility] [address] Urea nitrogen [Mass/Vol] 29 mg/dL High 7-[address] [facility] Comment on above: Order Comment: No: D o not add to previous draw Performed By: #### 5 0608 #### [facility] [address] [facility]. [address] HEMATOCRITon 12-23-2018 Hematocrit (Bld) [Volume fraction] 28.3 % Low 36.0-45.[address] [facility] Comment on above: Order Comment: No: D o not add to previous draw Performed By: #### 9 2088, 25491 ####[facility] [facility].[address] HEMOGLOBINon 12-23-2018 Hemoglobin (Bld) [Mass/Vol] 8.2 g/dL Low 12.0-15.[address] [facility] Comment on above: Order Comment: No: D o not add to previous draw Performed By: #### 9 2088, 78986 ####[facility] [facility].[address] MAGNESIUM BLOODon 12-23-2018 Magnesium [Mass/Vol] 1.8 mg/dL Low 1.9-2.[address] [facility] Comment on above: Order Comment: No: D o not add to previous draw Performed By: #### 1 0070, 78854 ####[facility] [facility].[address] ANAon 12-22-2018 Nuclear Ab IF (S) [Titer] <1:40 Normal <1:40,1:[address] [facility] Comment on above: Order Comment: No: D o not add to previous draw Performed By: #### 5 0608 #### [facility] [address] [place] [address], [facility] BASIC METABOLIC PANELon 11-0 Calcium [Mass/Vol] 9.2 mg/dL Normal 8.6-10.[address] [facility] Comment on above: Order Comment: No: D o not add to previous draw Performed By: #### 0 0071 ####[facility] [place] [address], [place] Chloride [Moles/Vol] 103 mmol/L Normal 98-[address] [facility] Comment on above: Order Comment: No: D o not add to previous draw Performed By: #### 0 0071 ####[facility] [place] [address], [facility] CO2 [Moles/Vol] 30 mmol/L Normal 21-[address] [facility] Comment on above: Order Comment: No: D o not add to previous draw Performed By: #### 0 0071 ####[facility] [facility] [place] [address], [facility] Creatinine [Mass/Vol] 1.05 mg/dL Normal 0.60-1.[address] [facility] Comment on above: Order Comment: No: D o not add to previous draw Performed By: #### 0 0071 ####[facility] [facility] [place] [address], [facility] GFR/1.73 sq M predicted among blacks MDRD (S/P/Bld) [Vol rate/Area] mL/min/{1.73_m2} Normal >[address] [facility] Comment on above: Order Comment: No: D o not add to previous draw Result Comment: Calc ulation may not be valid for patients over 70 years Performed By: #### 0 0071 ####[facility] [place] [address], [place] GFR/1.73 sq M predicted among non-blacks MDRD (S/P/Bld) [Vol rate/Area] 50 ml/min/1.73sq m Abnormal >[address] [facility] Comment on above: Order Comment: No: D o not add to previous draw Result Comment: Calc ulation may not be valid for patients over 70 years Performed By: #### 0 0071 ####[facility] [place] [address], [place] Glucose [Mass/Vol] 116 mg/dL High 70-[address] [facility] Comment on above: Order Comment: No: D o not add to previous draw Performed By: #### 0 0071 ####[facility] [place] [address], [place] Potassium [Moles/Vol] 3.7 mmol/L Normal 3.5-5.[address] [facility] Comment on above: Order Comment: No: D o not add to previous draw Performed By: #### 0 0071 ####[facility] [place] [address], [place] Sodium [Moles/Vol] 142 mmol/L Normal 136-[address] [facility] Comment on above: Order Comment: No: D o not add to previous draw Performed By: #### 0 0071 ####[facility] [place] [address], [place] Urea nitrogen [Mass/Vol] 28 mg/dL High 7-[address] [facility] Comment on above: Order Comment: No: D o not add to previous draw Performed By: #### 0 0071 ####[facility] [place] [address], [place] COMPLEMENT 312-22-2018 COMPLEMENT 3 123 mg/dL Normal 79-[address] [facility] Comment on above: Order Comment: Yes: Add to Previous draw if able Performed By: #### 1 0238, 08037 ####[facility] [place] [address], [place] COMPLEMENT 412-22-2018 COMPLEMENT 4 18 mg/dL Normal 16-[address] [facility] Comment on above: Order Comment: Yes: Add to Previous draw if able Performed By: #### 1 0238, 19633 ####[facility] [place] [address], [facility] HEMOGLOBINon 12-22-2018 Hemoglobin (Bld) [Mass/Vol] 7.8 g/dL Low 12.0-15.[address] [facility] Comment on above: Order Comment: No: D o not add to previous draw Performed By: #### 9 2089 ####[facility] [facility] [place] [place] [address], [facility] PROTEIN ELECT Joseph 12-22-2018 Protein [Mass/Vol] 6.2 g/dL Normal 6.0-8.[address] [facility] Comment on above: Order Comment: Yes: Add to Previous draw if able Performed By: #### 4 1661 ####[facility] [place] [address], [facility] Protein [Mass/Vol] Normal [facility] Comment on above: Order Comment: Yes: Add to Previous draw if able Result Comment: Hypo albuminemia is seen. This may be dilutional (from I.V. fluids) or nutritional in origin. Performed By: #### 4 1661 ####[facility] BASIC METABOLIC PANELon 11-0 Calcium [Mass/Vol] 9.1 mg/dL Normal 8.6-10.[address] [facility] Comment on above: Order Comment: No: D o not add to previous draw Performed By: #### 1 0, 29185 ####[facility] [place] [address], [facility] Chloride [Moles/Vol] 104 mmol/L Normal 98-[address] [facility] Comment on above: Order Comment: No: D o not add to previous draw Performed By: #### 1 69, 95188 ####[facility] [place] [address], [facility] CO2 [Moles/Vol] 30 mmol/L Normal 21-[address] [facility] Comment on above: Order Comment: No: D o not add to previous draw Performed By: #### 1 69, 68780 ####[facility] [place] [address], [place] Creatinine [Mass/Vol] 1.10 mg/dL Normal 0.60-1.[address] [facility] Comment on above: Order Comment: No: D o not add to previous draw Performed By: #### 1 69, 98031 ####[facility] [place] [address], [facility] GFR/1.73 sq M predicted among blacks MDRD (S/P/Bld) [Vol rate/Area] 58 ml/min/1.73sq m Abnormal >[address] [facility] Comment on above: Order Comment: No: D o not add to previous draw Result Comment: Calc ulation may not be valid for patients over 70 years Performed By: #### 1 69, 37491 ####[facility] [place] [address], [facility] GFR/1.73 sq M predicted among non-blacks MDRD (S/P/Bld) [Vol rate/Area] 47 ml/min/1.73sq m Abnormal >[address] [facility] Comment on above: Order Comment: No: D o not add to previous draw Result Comment: Calc ulation may not be valid for patients over 70 years Performed By: #### 1 69, 32681 ####[facility] [place] [address], [place] Glucose [Mass/Vol] 88 mg/dL Normal 70-[address] [facility] Comment on above: Order Comment: No: D o not add to previous draw Performed By: #### 1 69, 38208 ####[facility] Potassium [Moles/Vol] 3.4 mmol/L Low 3.5-5.[address] [facility] Comment on above: Order Comment: No: D o not add to previous draw Performed By: #### 1 69, 28624 ####[facility] [facility].[address] Sodium [Moles/Vol] 142 mmol/L Normal 136-[address] [facility] Comment on above: Order Comment: No: D o not add to previous draw Performed By: #### 1 69, 99455 ####[facility] Urea nitrogen [Mass/Vol] 33 mg/dL High 7-[address] [facility] Comment on above: Order Comment: No: D o not add to previous draw Performed By: #### 1 69, 72355 ####[facility] HEMOGLOBINon 12-21-2018 Hemoglobin (Bld) [Mass/Vol] 7.7 g/dL Low 12.0-15.[address] [facility] Comment on above: Order Comment: No: D o not add to previous draw Performed By: #### 0 0071 #### [facility] [address] [facility]. [address] MAGNESIUM BLOODon 12-21-2018 Magnesium [Mass/Vol] 1.8 mg/dL Low 1.9-2.[address] [facility] Comment on above: Order Comment: No: D o not add to previous draw Performed By: #### 1 69, 43956 ####[facility] [facility].[address] BASIC METABOLIC PANELon 11-0 Calcium [Mass/Vol] 9.3 mg/dL Normal 8.6-10.[address] [facility] Comment on above: Order Comment: No: D o not add to previous draw Performed By: #### 0 0071 #### [facility] [address] [place] [address], [place] Chloride [Moles/Vol] 102 mmol/L Normal 98-[address] [facility] Comment on above: Order Comment: No: D o not add to previous draw Performed By: #### 0 0071 #### [facility] [address] [place] [address], [place] CO2 [Moles/Vol] 32 mmol/L High 21-[address] [facility] Comment on above: Order Comment: No: D o not add to previous draw Performed By: #### 0 0071 #### [facility] [address] [place] [address], [place] Creatinine [Mass/Vol] 1.10 mg/dL Normal 0.60-1.[address] [facility] Comment on above: Order Comment: No: D o not add to previous draw Performed By: #### 0 0071 #### [facility] [address] [place] [address], [place] GFR/1.73 sq M predicted among blacks MDRD (S/P/Bld) [Vol rate/Area] 58 ml/min/1.73sq m Abnormal >[address] [facility] Comment on above: Order Comment: No: D o not add to previous draw Result Comment: Calc ulation may not be valid for patients over 70 years Performed By: #### 0 0071 #### [facility] [address] [place] [address], [place] GFR/1.73 sq M predicted among non-blacks MDRD (S/P/Bld) [Vol rate/Area] 47 ml/min/1.73sq m Abnormal >[address] [facility] Comment on above: Order Comment: No: D o not add to previous draw Result Comment: Calc ulation may not be valid for patients over 70 years Performed By: #### 0 0071 #### [facility] [address] [place] [address], [place] Glucose [Mass/Vol] 120 mg/dL High 70-[address] [facility] Comment on above: Order Comment: No: D o not add to previous draw Performed By: #### 0 0071 #### [facility] [address] [place] [address], [facility] Potassium [Moles/Vol] 3.3 mmol/L Low 3.5-5.[address] [facility] Comment on above: Order Comment: No: D o not add to previous draw Performed By: #### 0 0071 #### [facility] [address] [place] [address], [facility] Sodium [Moles/Vol] 142 mmol/L Normal 136-[address] [facility] Comment on above: Order Comment: No: D o not add to previous draw Performed By: #### 0 0071 #### [facility] [address] [place] [address], [facility] Urea nitrogen [Mass/Vol] 36 mg/dL High 7-[address] [facility] Comment on above: Order Comment: No: D o not add to previous draw Performed By: #### 0 0071 #### [facility] [address] [place] [id number], [facility] CBC COMPLETE BLOOD COUNTon 02-19-2018 Erythrocyte distribution width (RBC) [Ratio] 15.8 % High 11.5-15.[address] [facility] Comment on above: Order Comment: No: D o not add to previous draw Performed By: #### 0 0071 #### [facility] [address] [place] [address], [facility] Hematocrit (Bld) [Volume fraction] 25.4 % Low 36.0-45.[address] [facility] Comment on above: Order Comment: No: D o not add to previous draw Performed By: #### 0 0071 #### [facility] [address] [place] [id number], [facility] Hemoglobin (Bld) [Mass/Vol] 7.8 g/dL Low 12.0-15.[address] [facility] Comment on above: Order Comment: No: D o not add to previous draw Performed By: #### 0 0071 #### [facility] [address] [place] [address], [facility] MCH (RBC) [Entitic mass] 27.1 pg Normal 27.0-33.[address] [facility] Comment on above: Order Comment: No: D o not add to previous draw Performed By: #### 0 0071 #### [facility] [address] [place] [address], [facility] MCHC (RBC) [Mass/Vol] 30.7 g/dL Low 32.0-35.[address] [facility] Comment on above: Order Comment: No: D o not add to previous draw Performed By: #### 0 0071 #### [facility] [address] [place] [address], [facility] MCV (RBC) [Entitic vol] 88.2 fL Normal 82.0-98.[address] [facility] Comment on above: Order Comment: No: D o not add to previous draw Performed By: #### 0 0071 #### [facility] [address] Nucleated RBC/100 WBC (Bld) [Ratio] 0 % Normal 0-[address] [facility] Comment on above: Order Comment: No: D o not add to previous draw Performed By: #### 0 0071 #### [facility] [address] [place] [address], [facility] PLAT CNT 227 10*3/uL Normal 150-[address] [facility] Comment on above: Order Comment: No: D o not add to previous draw Performed By: #### 0 0071 #### [facility] [address] [place] [address], [facility] RBC (Bld) [#/Vol] 2.88 10*6/uL Low 3.80-5.[address] [facility] Comment on above: Order Comment: No: D o not add to previous draw Performed By: #### 0 0071 #### [facility] [address] [place] [address], [facility] WBC (Bld) [#/Vol] 8.61 10*3/uL Normal 4.00-10.[address] [facility] Comment on above: Order Comment: No: D o not add to previous draw Performed By: #### 0 0071 #### [facility] [address] [place] [address], [facility] MAGNESIUM BLOODon 12-20-2018 Magnesium [Mass/Vol] 1.9 mg/dL Normal 1.9-2.[address] [facility] Comment on above: Order Comment: No: D o not add to previous draw Performed By: #### 0 0071 #### [facility] [address] [place] [address], [facility] BASIC METABOLIC PANELon Calcium [Mass/Vol] 9.2 mg/dL Normal 8.6-10.[address] [facility] Comment on above: Order Comment: No: D o not add to previous draw Performed By: #### 5 0608 #### [facility] [address] [place] [address], [place] Chloride [Moles/Vol] 103 mmol/L Normal 98-[address] [facility] Comment on above: Order Comment: No: D o not add to previous draw Performed By: #### 5 0608 #### [facility] [address] [place] [address], [place] CO2 [Moles/Vol] 30 mmol/L Normal 21-[address] [facility] Comment on above: Order Comment: No: D o not add to previous draw Performed By: #### 5 0608 #### [facility] [address] [place] [address], [place] Creatinine [Mass/Vol] 1.27 mg/dL High 0.60-1.[address] [facility] Comment on above: Order Comment: No: D o not add to previous draw Performed By: #### 5 0608 #### [facility] [address] [place] [address], [facility] GFR/1.73 sq M predicted among blacks MDRD (S/P/Bld) [Vol rate/Area] 49 ml/min/1.73sq m Abnormal >[address] [facility] Comment on above: Order Comment: No: D o not add to previous draw Result Comment: Calc ulation may not be valid for patients over 70 years Performed By: #### 5 [id number] #### [facility] [address] [place] [address], [facility] GFR/1.73 sq M predicted among non-blacks MDRD (S/P/Bld) [Vol rate/Area] 41 ml/min/1.73sq m Abnormal >[address] [facility] Comment on above: Order Comment: No: D o not add to previous draw Result Comment: Calc ulation may not be valid for patients over 70 years Performed By: #### 5 0608 #### [facility] [address] [place] [address], [facility] Glucose [Mass/Vol] 162 mg/dL High 70-[address] [facility] Comment on above: Order Comment: No: D o not add to previous draw Performed By: #### 5 0608 #### [facility] [address] [place] [address], [place] Potassium [Moles/Vol] 4.2 mmol/L Normal 3.5-5.[address] [facility] Comment on above: Order Comment: No: D o not add to previous draw Performed By: #### 5 0608 #### [facility] [address] [place] [address], [place] Sodium [Moles/Vol] 142 mmol/L Normal 136-[address] [facility] Comment on above: Order Comment: No: D o not add to previous draw Performed By: #### 5 0608 #### [facility] [address] [place] [address], [facility] Urea nitrogen [Mass/Vol] 43 mg/dL High 7-[address] [facility] Comment on above: Order Comment: No: D o not add to previous draw Performed By: #### 5 0608 #### [facility] [address] [place] [address], [facility] CREATININE URINE RANDOMon Creatinine [Mass/Vol] 32.0 mg/dL Normal [facility] Comment on above: Order Comment: No: D o not add to previous draw Result Comment: Ther e are no established reference values for random urine specimens Performed By: #### 0 0071 #### [facility] [address] [place] [id number], [facility] FERRITINon 12-19-2018 Ferritin [Mass/Vol] 20 ng/mL Normal 11- [facility] Comment on above: Order Comment: No: D o not add to previous draw Performed By: #### 0 0071 #### [facility] [address] [place] [id number], [facility] HEMOGLOBINon 12-19-2018 Hemoglobin (Bld) [Mass/Vol] 6.8 g/dL Low 12.0-15.[address] [facility] Comment on above: Order Comment: No: D o not add to previous draw Performed By: #### 5 [id number] #### [facility] [address] [place] [id number], [facility] MAGNESIUM BLOODon 12-19-2018 Magnesium [Mass/Vol] 1.6 mg/dL Low 1.9-2.[address] [facility] Comment on above: Order Comment: No: D o not add to previous draw Performed By: #### 0 0071 #### [facility] [address] [place] [address], [facility] PROTEIN ELECT URon 9 Protein [Mass/Vol] 9.0 mg/dL Normal [facility] Comment on above: Order Comment: No: D o not add to previous draw Result Comment: Ther e are no established reference values for random urine specimens Performed By: #### 0 0071 #### [facility] [address] [place] [address], [facility] Protein [Mass/Vol] URINE PROTEIN ELECTROPHORESIS NOT DONE; T.P. <10 MG/DL Normal [facility] Comment on above: Order Comment: No: D o not add to previous draw Performed By: #### 0 0071 #### [facility] [address] [place] [address], [facility] TIBC- INCLUDES IRONon 2018 FE SATURATION 8 % Low 20-[address] [facility] Comment on above: Order Comment: No: D o not add to previous draw Performed By: #### 5 [id number] #### [facility] [address] [facility] [place] [address], [facility] Iron [Mass/Vol] 33 ug/dL Low 50-[address] [facility] Comment on above: Order Comment: No: D o not add to previous draw Performed By: #### 5 0608 #### [facility] [address] [facility] [place] [address], [facility] TIBC 431 mcg/dL Normal 250-[address] [facility] Comment on above: Order Comment: No: D o not add to previous draw Performed By: #### 5 0608 #### [facility] [address] [facility] [place] [address], [facility] UIBC 398 mcg/dL High 155-[address] [facility] Comment on above: Order Comment: No: D o not add to previous draw Performed By: #### 5 0608 #### [facility] [address] [facility] [place] [address], [facility] UA,MICROSCOPIC REQUIREDon Appearance (U) CLEAR Normal CLEAR [facility] Comment on above: Order Comment: No: D o not add to previous draw Performed By: #### 0 0071 #### [facility] [address] [place] [address], [place] Bilirubin [Mass/Vol] Negative Normal NEGATIVE [facility] Comment on above: Order Comment: No: D o not add to previous draw Performed By: #### 0 0071 #### [facility] [address] [place] [address], [place] BLOOD Negative Normal NEGATIVE [facility] Comment on above: Order Comment: No: D o not add to previous draw Performed By: #### 0 0071 #### [facility] [address] [place] [address], [place] Color (U) STRAW Abnormal YELLOW [facility] Comment on above: Order Comment: No: D o not add to previous draw Performed By: #### 0 0071 #### [facility] [address] [place] [address], [place] EPIS MOD Abnormal FEW,OCC,NONE SEEN [facility] Comment on above: Order Comment: No: D o not add to previous draw Performed By: #### 0 0071 #### [facility] [address] [place] [address], [place] Glucose [Mass/Vol] Negative Normal NEGATIVE [facility] Comment on above: Order Comment: No: D o not add to previous draw Performed By: #### 0 0071 #### [facility] [address] [place] [address], [place] HYALINE CASTS 2 /LPF Abnormal NONE SEEN [facility] Comment on above: Order Comment: No: D o not add to previous draw Performed By: #### 0 0071 #### [facility] [address] [place] [address], [place] KETONE Negative Normal NEGATIVE [facility] Comment on above: Order Comment: No: D o not add to previous draw Performed By: #### 0 0071 #### [facility] [address] [place] [address], [place] LEUK ARASH Negative Normal NEGATIVE [facility] Comment on above: Order Comment: No: D o not add to previous draw Performed By: #### 0 0071 #### [facility] [address] [place] [address], [facility] Nitrite Ql (U) Negative Normal NEGATIVE [facility] Comment on above: Order Comment: No: D o not add to previous draw Performed By: #### 0 0071 #### [facility] [address] [place] [address], [facility] pH (Bld) 6.0 Normal 5.0-8.[address] [facility] Comment on above: Order Comment: No: D o not add to previous draw Performed By: #### 0 0071 #### [facility] [address] [place] [address], [facility] Protein [Mass/Vol] Negative Normal NEGATIVE [facility] Comment on above: Order Comment: No: D o not add to previous draw Performed By: #### 0 0071 #### [facility] [address] [facility] [place] [address], [facility] RBC (Bld) [#/Vol] 0-2 Abnormal NONE SEEN [facility] Comment on above: Order Comment: No: D o not add to previous draw Performed By: #### 0 0071 #### [facility] [address] [facility] [place] [address], [facility] SPEC GRAV 1.008 Low 1.015-1.[address] [facility] Comment on above: Order Comment: No: D o not add to previous draw Performed By: #### 0 0071 #### [facility] [address] [facility] [place] [address], [facility] WBC UA 0-2 Abnormal NONE SEEN [facility] Comment on above: Order Comment: No: D o not add to previous draw Performed By: #### 0 0071 #### [facility] [address] [place] [address], [place] US RENALon 12-19-[address] [facility] Department of Radiology [address] [place] [address] == Patient Name: JENIFER HERNANDEZ : 1940 Sex: F Age: Race: NA Pt. Location: [id number] Patient Status: I Ordered Date: 12/19/2018 1:20:00 [...] findings. Electronically signed by:Tyree Momin. Transcribed by: [email or web address], User Resident: JOSE CHASE Electronically Signed by: TYREE MOMIN @ 12/20/2018 03:17 PM I personally read this/these film(s) with this resident Normal [facility] Comment on above: Order Comment: No: D o not add to previous draw ANTI C3 DATon 12-18-2018 ANTI C3 SOUTH Negative Normal [facility] Comment on above: Performed By: #### 5 0608 #### [facility] [address] [place] [address], [facility] ANTI IGG DATon 12-18-2018 ANTI IGG SOUTH Negative Normal [facility] Comment on above: Performed By: #### 5 0608 #### [facility] [address] [place] [address], [place] ANTIBODY IDENTIFICATIONon ANTIBODY ID C Normal [facility] Comment on above: Performed By: #### 5 0608 #### [facility] [address] [place] [address], [place] BASIC METABOLIC PANELon 10-3 Calcium [Mass/Vol] 9.2 mg/dL Normal 8.6-10.[address] [facility] Comment on above: Order Comment: No: D o not add to previous draw Performed By: #### 0 0071, 53783, 20883, 62828 #### [facility] [address] [place] [address], [place] Chloride [Moles/Vol] 98 mmol/L Normal 98-[address] [facility] Comment on above: Order Comment: No: D o not add to previous draw Performed By: #### 0 0071, 47672, 48923, 22733 #### [facility] [address] [place] [address], [place] CO2 [Moles/Vol] 30 mmol/L Normal 21-[address] [facility] Comment on above: Order Comment: No: D o not add to previous draw Performed By: #### 0 0071, 53693, 02947, 77857 #### [facility] [address] [place] [address], [place] Creatinine [Mass/Vol] 1.59 mg/dL High 0.60-1.[address] [facility] Comment on above: Order Comment: No: D o not add to previous draw Performed By: #### 0 0071, 27667, 33714, 62559 #### [facility] [address] [place] [address], [place] GFR/1.73 sq M predicted among blacks MDRD (S/P/Bld) [Vol rate/Area] 38 ml/min/1.73sq m Abnormal >[address] [facility] Comment on above: Order Comment: No: D o not add to previous draw Result Comment: Calc ulation may not be valid for patients over 70 years Performed By: #### 0 0071, 68608, 02361, 15733 #### [facility] [address] [place] [address], [place] GFR/1.73 sq M predicted among non-blacks MDRD (S/P/Bld) [Vol rate/Area] 31 ml/min/1.73sq m Abnormal >[address] [facility] Comment on above: Order Comment: No: D o not add to previous draw Result Comment: Calc ulation may not be valid for patients over 70 years Performed By: #### 0 0071, 58080, 97904, 32208 #### [facility] [address] [place] [address], [place] Glucose [Mass/Vol] 115 mg/dL High 70-[address] [facility] Comment on above: Order Comment: No: D o not add to previous draw Performed By: #### 0 0071, 05738, 43194, 44890 #### [facility] [address] [place] [address], [place] Potassium [Moles/Vol] 3.1 mmol/L Low 3.5-5.[address] [facility] Comment on above: Order Comment: No: D o not add to previous draw Performed By: #### 0 0071, 09649, 14909, 57361 #### [facility] [address] [place] [address], [facility] Sodium [Moles/Vol] 137 mmol/L Normal 136-[address] [facility] Comment on above: Order Comment: No: D o not add to previous draw Performed By: #### 0 0071, 22004, 99619, 95692 #### [facility] [address] [place] [address], [facility] Urea nitrogen [Mass/Vol] 53 mg/dL High 7-[address] [facility] Comment on above: Order Comment: No: D o not add to previous draw Performed By: #### 0 0071, 09627, 81819, 11973 #### [facility] [address] CBC COMPLETE BLOOD COUNTon Erythrocyte distribution width (RBC) [Ratio] 15.9 % High 11.5-15.[address] [facility] Comment on above: Order Comment: No: D o not add to previous draw Performed By: #### 5 0608 #### [facility] [address] [place] [address], [facility] Hematocrit (Bld) [Volume fraction] 21.4 % Low 36.0-45.[address] [facility] Comment on above: Order Comment: No: D o not add to previous draw Performed By: #### 5 0608 #### [facility] [address] [place] [address], [facility] Hemoglobin (Bld) [Mass/Vol] 6.5 g/dL Low 12.0-15.[address] [facility] Comment on above: Order Comment: No: D o not add to previous draw Performed By: #### 5 0608 #### [facility] [address] [place] [address], [facility] MCH (RBC) [Entitic mass] 26.5 pg Low 27.0-33.[address] [facility] Comment on above: Order Comment: No: D o not add to previous draw Performed By: #### 5 0608 #### [facility] [address] [place] [address], [facility] MCHC (RBC) [Mass/Vol] 30.4 g/dL Low 32.0-35.[address] [facility] Comment on above: Order Comment: No: D o not add to previous draw Performed By: #### 5 0608 #### [facility] [address] [facility] [place] [address], [facility] MCV (RBC) [Entitic vol] 87.3 fL Normal 82.0-98.[address] [facility] Comment on above: Order Comment: No: D o not add to previous draw Performed By: #### 5 0608 #### [facility] [address] [facility] [place] [address], [facility] Nucleated RBC/100 WBC (Bld) [Ratio] 0 % Normal 0-[address] [facility] Comment on above: Order Comment: No: D o not add to previous draw Performed By: #### 5 0608 #### [facility] [address] [facility] [place] [address], [facility] PLAT CNT 232 10*3/uL Normal 150-[address] [facility] Comment on above: Order Comment: No: D o not add to previous draw Performed By: #### 5 0608 #### [facility] [address] [facility]. [place] [id number], [facility] RBC (Bld) [#/Vol] 2.45 10*6/uL Low 3.80-5.[address] [facility] Comment on above: Order Comment: No: D o not add to previous draw Performed By: #### 5 0608 #### [facility] [address] [facility] [place] [address], [facility] WBC (Bld) [#/Vol] 7.40 10*3/uL Normal 4.00-10.[address] [facility] Comment on above: Order Comment: No: D o not add to previous draw Performed By: #### 5 0608 #### [facility] [address] Cardiovascular Lab Reporton 12-18-2018 Cardiovascular Lab Report [facility] Patient Name: [facility] MR #: [id number] Physician: Herber Bravo of [facility] Flores Medicine Service Date: 12/17/2018 Division of Birthdate: 1940 Cardiology Room #: [id number] Adult Cardiovascular Services [facility] [address] [facility]. [place] [address] Cardiovascular Laboratory Report INDICATION: The patient is [...] signed informed consent. She was brought to cytogenetics laboratory manager in a fasting state. The right neck area was prepped and draped in usual fashion. Using ultrasound guidance and micropuncture technique, the right internal jugular vein was accessed. A 6-Uruguayan x 11 cm sheath was placed. A 6-[place]ayan Thompson catheter was used for right heart [...] Flores M.D. Date Trans: 12/18/2018 08:22 Becky/sha [id number] cc: Edu Odonnell D.O. [address] [facility] [address] [address] [facility] HEMOGLOBINon 12-18-2018 Hemoglobin (Bld) [Mass/Vol] 7.3 g/dL Low 12.0-15.[address] [facility] Comment on above: Order Comment: No: D o not add to previous draw Performed By: #### 5 0608 #### [facility] [address] [facility] [place] [address], [facility] Hemoglobin (Bld) [Mass/Vol] 7.2 g/dL Low 12.0-15.[address] [facility] Comment on above: Order Comment: No: D o not add to previous draw Performed By: #### 5 0608 #### [facility] [address] [facility] [place] [address], [facility] Hemoglobin (Bld) [Mass/Vol] 6.9 g/dL Low 12.0-15.[address] [facility] Comment on above: Order Comment: No: D o not add to previous draw Performed By: #### 9 9 #### [facility] [address] [place] [address], [facility] IRON BLOODon 12-18-2018 Iron [Mass/Vol] 19 ug/dL Low 50-[address] [facility] Comment on above: Order Comment: No: D o not add to previous draw Performed By: #### 0 0071, 29664, 56377, 16355 #### [facility] [address] [place] [address], [facility] MAGNESIUM BLOODon 12-18-2018 Magnesium [Mass/Vol] 1.8 mg/dL Low 1.9-2.[address] [facility] Comment on above: Order Comment: No: D o not add to previous draw Performed By: #### 0 0071, 65488, 31063, 50662 #### [facility] [address] [facility] [address], [facility] PHOSPHORUS BLOODon 9 Phosphate [Mass/Vol] 3.1 mg/dL Normal 2.5-5.[address] [facility] Comment on above: Order Comment: No: D o not add to previous draw Performed By: #### 0 0071, 65200, 92743, 57681 #### [facility] [address] [facility] [address], [facility] RBC'S 2 UNITSon 12-18-2018 CROSSMATCH INTERP 1 COMP Normal [facility] Comment on above: Performed By: #### 5 0608 #### [facility] [address] [facility] [place] [place] [address], [facility] CROSSMATCH INTERP 2 COMP Normal [facility] Comment on above: Performed By: #### 5 0608 #### [facility] [address] [place] [address], [facility] PRODUCT CODE 1 E0336 Normal [facility] Comment on above: Performed By: #### 5 0608 #### [facility] [address] [place] [address], [facility] PRODUCT CODE 2 E0336 Normal [facility] Comment on above: Performed By: #### 5 0608 #### [facility] [address] [place] [address], [place] PRODUCT STATUS 1 PT Normal [facility] Comment on above: Result Comment: Resu lt changed by IF on 12/19/2018 09:14. The previous value was XM. Result changed by IF on 12/20/2018 00:30. The previous value was IS. Performed By: #### 5 0608 #### [facility] [address] [place] [address], [facility] PRODUCT STATUS 2 RE Normal [facility] Comment on above: Result Comment: Resu lt changed by IF on 12/22/2018 07:27. The previous value was XM. Performed By: #### 5 0608 #### [facility] [address] [place] [address], [place] UNIT ABO 1 A Normal [facility] Comment on above: Performed By: #### 5 0608 #### [facility] [address] [place] [address], [place] UNIT ABO 2 A Normal The [facility] Comment on above: Performed By: #### [id number] #### [facility] [address] [place] [address], [facility] UNIT ID 1 [id number] Normal [facility] Comment on above: Performed By: #### [id number] #### [facility] [address] [place] [address], [facility] UNIT ID 2 [id number] Normal [facility] Comment on above: Performed By: #### [id number] #### [facility] [address] [place] [address], [place] UNIT RH 1 Negative Normal The [facility] Comment on above: Performed By: #### [id number] #### [facility] [address] [place] [address], [place] UNIT RH 2 Negative Normal The [facility] Comment on above: Performed By: #### [id number] #### [facility] [address] [place] [address], [place] TYPE AND SCREENon 12-18-2018 ABO INTERPRETATION A Normal The [facility] Comment on above: Performed By: #### [id number] #### [facility] [address] [place] [address], [place] RH INTERPRETATION Positive Normal The [facility] Comment on above: Performed By: #### [id number] #### [facility] [address] [place] [address], [place] BASIC METABOLIC PANELon 10- Calcium [Mass/Vol] 9.5 mg/dL Normal 8.6-10.[address] [facility] Comment on above: Order Comment: No: D o not add to previous draw Performed By: #### 0 [id number] #### [facility] [address] [place] [address], [place] Chloride [Moles/Vol] 95 mmol/L Low 98-[address] [facility] Comment on above: Order Comment: No: D o not add to previous draw Performed By: #### 0 [id number] #### [facility] [address] [place] [address], [place] CO2 [Moles/Vol] 29 mmol/L Normal 21-[address] [facility] Comment on above: Order Comment: No: D o not add to previous draw Performed By: #### 0 [id number] #### [facility] [address] [place] [address], [place] Creatinine [Mass/Vol] 2.01 mg/dL High 0.60-1.[address] [facility] Comment on above: Order Comment: No: D o not add to previous draw Performed By: #### 0 [id number] #### [facility] [address] [place] [address], [place] GFR/1.73 sq M predicted among blacks MDRD (S/P/Bld) [Vol rate/Area] 29 ml/min/1.73sq m Abnormal >[address] [facility] Comment on above: Order Comment: No: D o not add to previous draw Result Comment: Calc ulation may not be valid for patients over 70 years Performed By: #### 0 [id number] #### [facility] [address] [place] [address], [place] GFR/1.73 sq M predicted among non-blacks MDRD (S/P/Bld) [Vol rate/Area] 24 ml/min/1.73sq m Abnormal >[address] [facility] Comment on above: Order Comment: No: D o not add to previous draw Result Comment: Calc ulation may not be valid for patients over 70 years Performed By: #### 0 [id number] #### [facility] [address] [place] [address], [place] Glucose [Mass/Vol] 125 mg/dL High 70-[address] [facility] Comment on above: Order Comment: No: D o not add to previous draw Performed By: #### 0 [id number] #### [facility] [address] [place] [address], [place] Potassium [Moles/Vol] 2.8 mmol/L Low 3.5-5.[address] [facility] Comment on above: Order Comment: No: D o not add to previous draw Performed By: #### 0 [id number] #### [facility] [address] [place] [address], [place] Sodium [Moles/Vol] 135 mmol/L Low 136-[address] [facility] Comment on above: Order Comment: No: D o not add to previous draw Performed By: #### 0 [id number] #### [facility] [address] [place] [address], [place] Urea nitrogen [Mass/Vol] 62 mg/dL High 7-[address] [facility] Comment on above: Order Comment: No: D o not add to previous draw Performed By: #### 0 [id number] #### [facility] [address] [place] [address], [facility] CBC COMPLETE BLOOD COUNTon Erythrocyte distribution width (RBC) [Ratio] 15.8 % High 11.5-15.[address] [facility] Comment on above: Order Comment: No: D o not add to previous draw Performed By: #### [id number] #### [facility] [address] Hematocrit (Bld) [Volume fraction] 24.7 % Low 36.0-45.[address] [facility] Comment on above: Order Comment: No: D o not add to previous draw Performed By: #### [id number] #### [facility] [address] Hemoglobin (Bld) [Mass/Vol] 7.5 g/dL Low 12.0-15.[address] [facility] Comment on above: Order Comment: No: D o not add to previous draw Performed By: #### [id number] #### [facility] [address] [place] [address], [facility] MCH (RBC) [Entitic mass] 26.8 pg Low 27.0-33.[address] [facility] Comment on above: Order Comment: No: D o not add to previous draw Performed By: #### [id number] #### [facility] [address] [place] [address], [facility] MCHC (RBC) [Mass/Vol] 30.4 g/dL Low 32.0-35.[address] [facility] Comment on above: Order Comment: No: D o not add to previous draw Performed By: #### [id number] #### [facility] [address] [place] [address], [facility] MCV (RBC) [Entitic vol] 88.2 fL Normal 82.0-98.[address] [facility] Comment on above: Order Comment: No: D o not add to previous draw Performed By: #### [id number] #### [facility] [address] [facility] [place] [address], [facility] Nucleated RBC/100 WBC (Bld) [Ratio] 0 % Normal 0-[address] [facility] Comment on above: Order Comment: No: D o not add to previous draw Performed By: #### [id number] #### [facility] [address] [facility] [place] [address], [facility] PLAT CNT 260 10*3/uL Normal 150-[address] [facility] Comment on above: Order Comment: No: D o not add to previous draw Performed By: #### [id number] #### [facility] [address] [facility] [place] [address], [facility] RBC (Bld) [#/Vol] 2.80 10*6/uL Low 3.80-5.[address] [facility] Comment on above: Order Comment: No: D o not add to previous draw Performed By: #### [id number] #### [facility] [address] [facility] [place] [address], [facility] WBC (Bld) [#/Vol] 8.14 10*3/uL Normal 4.00-10.[address] [facility] Comment on above: Order Comment: No: D o not add to previous draw Performed By: #### [id number] #### [facility] [address] [place] [address], [facility] CHEST AND LATERALon 12-18-19 19 CHEST AND LATERAL [facility] Department of Radiology [address] [place] [id number] == Patient Name: JENIFER HERNANDEZ : 1940 [...] lungs Electronically signed by:Dori Olson. Transcribed by: [email or web address], User Resident: Electronically Signed by: DORI OLSON @ 12/17/2018 01:43 PM Normal [facility] Comment on above: Order Comment: R/O E ffusion History and Physicalon 12-17 History and Physical MR#: [id number] [facility] Pt. Name: Jenifer Hernandez Admitted: 12/17/2018 Date of : 1940 Attending Physician: Beverly Brock MD Room #: [id number] Discharge Date: HISTORY AND PHYSICAL CHIEF COMPLAINT: Shortness of breath. HISTORY OF PRESENT ILLNESS: This is an 78-year-old female with past medical history significant for diastolic congestive heart failure, history of coronary artery disease status post remote CABG, history of gastric/duodenal ulcer disease, and history of chronic atrial fibrillation, on Xarelto. The patient was evaluated with her melt helper recently for increased shortness of breath on simple daily activities like walking few steps from the garage to her home. She was found to be in exacerbation of her diastolic heart failure and her diuretic dosage was increased. She was sent to [facility] for an elective right heart catheterization which [...] for that she was seen by a public address systems mechanic. She thinks that she had an EGD [...] Brock MD Date Trans: 12/17/2018 12:28 P/sha [id number] Normal The [facility] Vital Signs Date Time Vital Sign Value Performing Clinician Facility 11-12-2024 13:56-0400 Body height 162.56 cm Joi Guajardo DO Work Phone: [facility] 11-12-2024 13:56-0400 Body mass index (BMI) [Ratio] 26.6 kg/m2 Joi Bennett DO Work Phone: [facility] 11-12-2024 13:56-0400 Body weight 70.3 kg Joi Bennett DO Work Phone: [facility] 11-12-2024 13:56-0400 Diastolic blood pressure 70 mm[Hg] Joi Bennett DO Work Phone: [facility] 11-12-2024 13:56-0400 Heart rate 82 /min Joi Bennett DO Work Phone: [facility] 11-12-2024 13:56-0400 Respiratory rate 16 /min Joi Bennett DO Work Phone: [facility] 11-12-2024 13:56-0400 SaO2% (BldA) [Mass fraction] 93 % Joi Bennett DO Work Phone: [facility] 11-12-2024 13:56-0400 Systolic blood pressure 116 mm[Hg] Joi Bennett DO Work Phone: [facility] 07-23-2024 10:31-0400 Body mass index (BMI) [Ratio] 27.46 kg/m2 Allyssa Baez MANAGER OPERATIONAL Work Phone: [facility] 07-23-2024 10:31-0400 Body temperature 98.29 [degF] Allyssa Baez MANAGER OPERATIONAL Work Phone: [facility] 07-23-2024 10:31-0400 Body weight 72.58 kg Allyssa Nestor MANAGER OPERATIONAL Work Phone: [facility] 07-23-2024 10:31-0400 Diastolic blood pressure 72 mm[Hg] Allyssa Elisabethz MANAGER OPERATIONAL Work Phone: [facility] 07-23-2024 10:31-0400 Heart rate 79 /min Allyssa Nestor MANAGER OPERATIONAL Work Phone: [facility] 07-23-2024 10:31-0400 Respiratory rate 18 /min Allyssa Codieholz MANAGER OPERATIONAL Work Phone: [facility] 07-23-2024 10:31-0400 SaO2% (BldA) [Mass fraction] 96 % Allyssa Bohholz MANAGER OPERATIONAL Work Phone: [facility] 07-23-2024 10:31-0400 Systolic blood pressure 122 mm[Hg] Allyssa Aichholz MANAGER OPERATIONAL Work Phone: [facility] 05-26-2024 09:08-0400 Body mass index (BMI) [Ratio] 27.29 kg/m2 Allyssa Aichholz MANAGER OPERATIONAL Work Phone: [facility] 05-26-2024 09:08-0400 Body temperature 98.49 [degF] Allyssa Aichholz MANAGER OPERATIONAL Work Phone: [facility] 05-26-2024 09:08-0400 Body weight 72.12 kg Allyssa Aichholz MANAGER OPERATIONAL Work Phone: [facility] 05-26-2024 09:08-0400 Diastolic blood pressure 68 mm[Hg] Allyssa Aichholz MANAGER OPERATIONAL Work Phone: [facility] 05-26-2024 09:08-0400 Heart rate 55 /min Allyssa Aichholz MANAGER OPERATIONAL Work Phone: [facility] 05-26-2024 09:08-0400 Respiratory rate 20 /min Allyssa Aichholz MANAGER OPERATIONAL Work Phone: [facility] 05-26-2024 09:08-0400 SaO2% (BldA) [Mass fraction] 99 % Allyssa Aichholz MANAGER OPERATIONAL Work Phone: [facility] 05-26-2024 09:08-0400 Systolic blood pressure 128 mm[Hg] Allyssa Aichholz MANAGER OPERATIONAL Work Phone: [facility] 01-09-2024 14:06-0500 Body height 162.6 cm Shell Hemphill MANAGER OPERATIONAL Work Phone: [facility] 01-09-2024 14:06-0500 Body mass index (BMI) [Ratio] 27.84 kg/m2 Shell Hemphill MANAGER OPERATIONAL Work Phone: [facility] 01-09-2024 14:06-0500 Body temperature 99.5 [degF] Shell Hemphill MANAGER OPERATIONAL Work Phone: [facility] 01-09-2024 14:06-0500 Body weight 73.57 kg Shell Hemphill MANAGER OPERATIONAL Work Phone: [facility] 01-09-2024 14:06-0500 Diastolic blood pressure 64 mm[Hg] Shell Hemphill MANAGER OPERATIONAL Work Phone: [facility] 01-09-2024 14:06-0500 Heart rate 88 /min Shell Hemphill MANAGER OPERATIONAL Work Phone: [facility] 01-09-2024 14:06-0500 Respiratory rate 16 /min Shell Hemphill MANAGER OPERATIONAL Work Phone: [facility] 01-09-2024 14:06-0500 SaO2% (BldA) [Mass fraction] 94 % Shell Hemphill MANAGER OPERATIONAL Work Phone: [facility] 01-09-2024 14:06-0500 Systolic blood pressure 116 mm[Hg] Shell Hemphill MANAGER OPERATIONAL Work Phone: [facility] 10-14-2023 09:03-0400 Body height 162.6 cm Shell Hemphill MANAGER OPERATIONAL Work Phone: [facility] 10-14-2023 09:03-0400 Body mass index (BMI) [Ratio] 26.43 kg/m2 Shell Hemphill MANAGER OPERATIONAL Work Phone: [facility] 10-14-2023 09:03-0400 Body temperature 99.5 [degF] Shell Hemphill MANAGER OPERATIONAL Work Phone: [facility] 10-14-2023 09:03-0400 Body weight 69.85 kg Shell Hemphill MANAGER OPERATIONAL Work Phone: [facility] 10-14-2023 09:03-0400 Diastolic blood pressure 70 mm[Hg] Shell Hemphill MANAGER OPERATIONAL Work Phone: [facility] 10-14-2023 09:03-0400 Heart rate 92 /min Shell Hemphill MANAGER OPERATIONAL Work Phone: [facility] Comment on above: 96% O2 10-14-2023 09:03-0400 Systolic blood pressure 120 mm[Hg] Shell Hemphill MANAGER OPERATIONAL Work Phone: [facility] Encounters Encounter Date Encounter Type Care Provider Facility Start: 11-12-2024 End: 11-12-2024 ambulatory Joi Gouldp DO Work Phone: [facility] Work Phone: Start: 11-12-2024 End: 11-12-2024 Patient encounter procedure Joi Bennett DO -[facility] Work Phone: Start: 09-07-2024 End: 09-07-2024 ambulatory [facility] Start: 08-19-2024 End: 08-20-2024 Clinisync Result Encounter Generic External Data Provider [facility] External Department Unsolicited Start: 08-19-2024 End: 08-20-2024 Clinisync Result Encounter Generic External Data Provider [facility] External Department Unsolicited Start: 07-30-2024 End: 07-30-2024 Refill Keith Foley MD Work Phone: [facility] Comment on above: Chronic diastolic he art failure (HCC) Start: 07-23-2024 End: 07-23-2024 Bamboo flowsheet Allyssa Baez MANAGER OPERATIONAL Work Phone: [facility] Start: 07-23-2024 End: 07-23-2024 Bamboo flowsheet Allyssa Baez MANAGER OPERATIONAL Work Phone: [facility] Start: 07-23-2024 End: 07-23-2024 Patient encounter procedure Allyssa Baez NP Work Phone: [facility] Comment on above: Encounter for subseq uent annual wellness visit (AWV) in Medicare patient (Primary Dx); Chronic atrial fibrillation, unspecified (CMS/HCC); Chronic diastolic heart failure (CMS/HCC); Coronary artery disease involving [place] coronary artery of [place] heart without angina pectoris (CMS/HCC); Primary hypertension (CMS/HCC); Chronic kidney disease, stage 3b (HCC) (CMS/HCC); Type 2 diabetes mellitus with diabetic chronic kidney disease (CMS/HCC); Type 2 diabetes mellitus with diabetic cataract (CMS/HCC); Numbness of fingers of both hands Start: 07-23-2024 End: 07-23-2024 ambulatory ALLYSSA CODIEHOLKimberly Not Available Start: 06-22-2024 End: 06-23-2024 Dayron Foley MD Work Phone: [facility] Comment on above: Hypercholesteremia ( CMS/HCC) Start: 05-26-2024 End: 05-26-2024 Bamboo flowsheet Allyssa Baez NP Work Phone: [facility] Start: 05-26-2024 End: 05-26-2024 Bamboo flowsheet Allyssa Baez MANAGER OPERATIONAL Work Phone: [facility] Start: 05-26-2024 End: 05-26-2024 ambulatory ALLYSSA AICHHOLZ Not Available Start: 05-26-2024 End: 05-26-2024 Office outpatient visit 25 minutes Allyssa Baez NP Work Phone: [facility] Comment on above: Primary hypertension (CMS/HCC) (Primary Dx); Chronic atrial fibrillation, unspecified (CMS/HCC); Type 2 diabetes mellitus without complications; Chronic kidney disease, stage 3b (HCC) (CMS/HCC); Coronary artery disease involving [place] coronary artery of [place] heart without angina pectoris (CMS/HCC); Nonrheumatic tricuspid valve regurgitation; Pulmonary HTN (CMS/HCC); Gastroesophageal reflux disease without esophagitis; Mixed hyperlipidemia (CMS/HCC); Chronic diastolic heart failure (CMS/HCC) Start: 05-13-2024 End: 05-13-2024 Clinisync Result Encounter Allyssa Baez MANAGER OPERATIONAL Work Phone: [facility] External Department Unsolicited Start: 05-13-2024 End: 05-13-2024 Clinisync Result Encounter Allyssa Nestor MANAGER OPERATIONAL Work Phone: [facility] External Department Unsolicited Start: 05-13-2024 End: 05-13-2024 Telephone encounter Allyssa Baez MANAGER OPERATIONAL Work Phone: [facility] Start: 03-01-2024 End: 03-02-2024 Refill Shell Hemphill MANAGER OPERATIONAL Work Phone: [facility] Comment on above: Hypercholesteremia ( CMS/HCC) Start: 02-20-2024 End: 02-24-2024 Refill Shell Hemphill MANAGER OPERATIONAL Work Phone: [facility] Comment on above: Chronic diastolic he art failure (CMS/HCC) Start: 02-04-2024 End: 02-04-2024 Clinisync Result Encounter Generic External Data Provider [facility] External Department Unsolicited Start: 02-04-2024 End: 02-04-2024 Clinisync Result Encounter Generic External Data Provider [facility] External Department Unsolicited Start: 01-13-2024 End: 01-13-2024 ambulatory [facility] Start: 01-09-2024 End: 01-09-2024 Office outpatient visit 15 minutes Shell Hemphill MANAGER OPERATIONAL Work Phone: [facility] Comment on above: Hypertension, unspec ified type (CMS/HCC) (Primary Dx); Other hyperlipidemia (CMS/HCC); Stage 3b chronic kidney disease (HCC) (CMS/HCC) Start: 01-09-2024 End: 01-09-2024 Bamboo flowsheet Shell Hemphill MANAGER OPERATIONAL Work Phone: [facility] Start: 01-09-2024 End: 01-09-2024 Bamboo flowsheet Shell Neritrick MANAGER OPERATIONAL Work Phone: [facility] Start: 01-09-2024 End: 01-09-2024 ambulatory SHELL HEMPHILL Not Available Start: 12-26-2023 End: 12-26-2023 Clinisync Result Encounter Generic External Data Provider [facility] External Department Unsolicited Start: 12-26-2023 End: 12-26-2023 Clinisync Result Encounter Generic External Data Provider [facility] External Department Unsolicited Start: 12-18-2023 End: 12-18-2023 ambulatory [facility] Start: 12-18-2023 End: 12-18-2023 Clinisync Result Encounter Generic External Data Provider [facility] External Department Unsolicited Start: 12-18-2023 End: 12-18-2023 Clinisync Result Encounter Generic External Data Provider [facility] External Department Unsolicited Start: 11-25-2023 End: 11-25-2023 Refill Shell Hemphill MANAGER OPERATIONAL Work Phone: [facility] Comment on above: Hypercholesteremia ( CMS/HCC) (Primary Dx) Start: 10-28-2023 End: 10-28-2023 Clinisync Result Encounter Generic External Data Provider [facility] External Department Unsolicited Start: 10-28-2023 End: 10-28-2023 Clinisync Result Encounter Generic External Data Provider [facility] External Department Unsolicited Start: 10-14-2023 End: 10-14-2023 Bamboo flowsheet Shell Silvapatrick MANAGER OPERATIONAL Work Phone: [facility] Start: 10-14-2023 End: 10-14-2023 Bamboo flowsheet Shell Silvapatrick MANAGER OPERATIONAL Work Phone: [facility] Start: 10-14-2023 End: 10-14-2023 Office outpatient visit 25 minutes Shell Hemphill MANAGER OPERATIONAL Work Phone: [facility] Comment on above: Hypercholesteremia ( CMS/HCC) (Primary Dx); Hypertensive heart disease with heart failure (CMS/HCC); Hypertension, unspecified type (CMS/HCC); Cerumen debris on tympanic membrane of both ears; Stage 3b chronic kidney disease (HCC) (CMS/HCC); Chronic fatigue Start: 10-14-2023 End: 10-14-2023 ambulatory SHELL SILVAPATRICK Not Available Start: 09-25-2023 End: 09-25-2023 ambulatory HERBER FLORES [facility] Start: 01-31-2022 End: 02-01-[address] HERBER FLORES Facility:[facility] Start: 01-18-2022 End: 01-18-2022 ambulatory PETR MERLOS Facility:[facility] Start: 12-21-2021 End: 12-21-2021 ambulatory PETR MERLOS Facility:[facility] Start: 11-15-[address] EDU ODONNELL Facilghada ty:[facility] Start: 10-18-2021 End: 10-19-[address] EDU ODONNELL Facility:[facility] Start: 08-22-[address] EDU ODONNELL Facilghada ty:[facility] Start: 08-18-2021 End: 08-19-2021 ambulatory LOGAN MORAN Facility:[facility] Start: 03-28-2021 End: 03-29-[address] DOCTOR LEGER Facility:[facility] Start: 03-07-2021 End: 03-08-2021 ambulatory LOGAN MORAN Facility:[facility] Start: 01-05-2019 End: 01-14-2019 Evaluation and management of inpatient KENNEDI MARSHALL Facility:[facility] Start: 12-17-2018 End: 12-24-2018 Evaluation and management of inpatient EDU ODONNELL Facility:[facility] Procedures Date Procedure Procedure Detail Performing Clinician Start: 08-19-2024 CA ECHO DOPPLER COMPLETE Generic External Data Provider Start: 05-26-2024 Hemoglobin glycosyla dannielle a1c Allyssa Baez MANAGER OPERATIONAL Work Phone: Start: 05-13-2024 ALL CBC WITH AUTO DIFF Allyssa Baez MANAGER OPERATIONAL Work Phone: Start: 02-04-2024 ALL BASIC METABOLIC PANEL Generic External Data Provider Start: 12-26-2023 ALL BASIC METABOLIC PANEL Generic External Data Provider Start: 12-18-2023 ALL BASIC METABOLIC PANEL Generic External Data Provider Start: 10-28-2023 ALL BASIC METABOLIC PANEL Generic External Data Provider Start: 02-01-2022 History of coronary artery bypass grafting History of coronary artery bypass graft Shell Hemphill NP Work Phone: Start: 01-12-2019 Mu-Ism of Cardi ac Rhythm, Single MOSHRIK ABD [...] above: Performed By: #### [id number] #### [address] Start: 12-17-2018 MEASURE OF CARDIAC S AMPL \T\ PRESSURE, R HEART, PERC APPROACH HERBER FLORES Start: 12-17-2018 MEASUREMENT OF ARTER IAL FLOW, PULMONARY, PERC APPROACH HERBER FLORES Plan of Treatment Date Care Activity Detail Author Start: 07-26-2025 End: 07-26-2025 Patient encounter procedure 07/26/2025 10:00 AM EDT Office Visit [facility] [address] [place] [phone] Allyssa Baez NP [address] [place] [phone] [facility] Start: 05-13-2025 Urine screening for protein Diabetes: Urine Protein Screening [facility] Start: 10-27-2024 End: 10-27-2024 Patient encounter procedure 10/27/2024 9:40 AM EDT Office [address] [facility] [address] [place] [address] Allyssa Baez NP [address] [place] [phone] [facility] Start: 10-19-2024 Influenza vaccination Influenza Vaccine (Season Ended) [facility] Start: 08-25-2024 Hemoglobin A1c measurement Diabetes: [facility] Start: 07-23-2024 End: 07-23-[address] [facility] Comment on above: Encounter for subsequent annual wellness visit (AWV) in Medicare patient (Primary Dx); Chronic atrial fibrillation, unspecified ([facility]/HCC); Chronic diastolic heart failure ([facility]/HCC); Coronary artery disease involving [place] coronary artery of [place] heart without angina pectoris ([facility]/HCC); Primary hypertension ([facility]/HCC); Chronic kidney disease, stage 3b ([facility]) ([facility]); Type 2 diabetes mellitus with diabetic chronic kidney disease ([facility]/HCC); Type 2 diabetes mellitus with diabetic cataract ([facility] [facility]/HCC) Start: 05-26-2024 End: 05-26-2024 Patient encounter procedure 05/26/2024 9:00 AM EDT Office Visit [facility] [address] [place] [address] Allyssa Baez, JEFFERY [address] [place] [phone] [facility] Start: 04-13-2024 End: 04-13-2024 Patient encounter procedure 04/13/2024 2:00 PM EST Office Visit [facility] [address] [place] [address] Shell Hemphill NP [address] [place] [address] [facility] Start: 01-14-2024 End: 01-14-2024 Patient encounter procedure 01/14/2024 10:30 AM EST Office [facility] [address] [place] [address] Shell Hemphill NP [address] [phone] [facility] Start: 01-09-2024 End: 01-09-2024 Patient encounter procedure [facility] Comment on above: Arrived Start: 10-20-2023 Influenza vaccination Influenza Vaccine (#1) [facility] Start: 10-14-2023 End: 10-14-2023 Patient encounter procedure 10/14/2023 9:00 AM EDT Office Visit [facility] [address] [place] [phone] Shell Hemphill NP [address] [address] Hypercholesteremia (CMS/HCC) (Primary Dx); Hypertensive heart disease with heart failure (CMS/HCC); Chronic fatigue [facility] Comment on above: Hypercholesteremia (CMS/HCC) (Primary Dx ); Hypertensive heart disease with heart failure (CMS/HCC); Chronic fatigue Start: 1957 Pneumococcal Vaccine: 65+ Years (1 of 2 - PCV) Pneumococcal Vaccine: 65+ Years (1 of 2 - PCV) [facility] Start: 1948 Glaucoma screening Diabetes: Retinopathy Screening [facility] Start: 1944 Pneumococcal Vaccine: 65+ Years (1 of 2 - PCV) Pneumococcal Vaccine: 65+ Years (1 of 2 - PCV) [facility] Start: 1938 Hemoglobin A1c measurement Diabetes: Hemoglobin A1C [facility] Comprehensive metabo lic 2000 panel - Serum or Plasma [facility] Immunizations Immunization Date Immunization Notes Care Provider Fa cili 01-11-2021 Pfizer Purple Cap SARS-CoV-2 Vaccination Shell Hemphill NP Work Phone: [facility] 06-30-2020 Pfizer Purple Cap SARS-CoV-2 Vaccination Shell Hemphill MANAGER OPERATIONAL Work Phone: [facility] 06-09-2020 Pfizer Purple Cap SARS-CoV-2 Vaccination Shell Hemphill MANAGER OPERATIONAL Work Phone: [facility] 11-04-2019 influenza, high dose seasonal, preservative-free Shell Hemphill MANAGER OPERATIONAL Work Phone: [facility] 11-04-2019 influenza virus vaccine, unspecified formulation Shell Hemphill MANAGER OPERATIONAL Work Phone: [facility] 04-30-2019 zoster vaccine recombinant Shell Hemphill MANAGER OPERATIONAL Work Phone: [facility] 02-25-2019 zoster vaccine recombinant Shell Hemphill MANAGER OPERATIONAL Work Phone: [facility] 10-27-2018 Seasonal trivalent influenza vaccine, adjuvanted, preservative free Shell Hemphill MANAGER OPERATIONAL Work Phone: [facility] 10-13-2015 influenza, high dose seasonal, preservative-free Shell Hemphill MANAGER OPERATIONAL Work Phone: [facility] Payers Date Payer Category Payer Private Health Insurance [id number] 2005 Medicare [id number] 2004 Medicaid [employer] MEDICARE A DVANTAGE [id number] 5 1959 Medicare [id number] 1959 Self-pay 1959 Unknown [id number] 1938 Unknown [id number] .2.647 1938 Unknown [id number] 2.16.840.1.100873.3.579 .2.647 1938 Unknown [id number] [id number] .2.593 1938 Unknown [id number] 2.16.840.1.849266.3.579 .2.593 1938 Unknown [id number] 2.16.840.1.829988.3.579 .2.593 1938 Unknown [id number] 2.16.840.1.142467.3.579 .2.593 1938 Unknown [id number] 2.16.840.1.179154.3.579 .2.593 1938 Unknown [id number] 2.16.840.1.768540.3.579 .2.593 1938 Unknown [id number] 2.16.840.1.481063.3.579 .2.593 1938 Unknown [id number] 2.16.840.1.531927.3.579 .2.593 1938 Unknown [id number] 2.16.840.1.555561.3.579 .2.593 1938 Unknown [id number] 2.16.840.1.356904.3.579 .2.1259 1938 Unknown [id number] 2.16.840.1.657849.3.579 .2.1259 1938 Unknown [id number] 2.16.840.1.268712.3.579 .2.1259 1938 Unknown [id number] [id number] .2.1259 Social History Date Type Detail Facility Start: 05-21-2023 End: 11-12-2024 Tobacco smoking status NHIS Never smoked tobacco [facility] Start: 05-21-2023 Tobacco use and exposure Smokeless tobacco non-user [facility] Start: 10-14-2023 End: 07-23-2024 Alcoholic beverage intake Lifetime non-drinker (finding) [facility] Start: 10-14-2023 End: 07-23-2024 History of Social function [facility] Start: 10-14-2023 End: 07-23-2024 Tobacco use panel [facility] Start: 1940 Sex assigned at Not on file [facility] Sex Female (finding) [facility] Start: 1940 Sex Assigned At Female F [facility] NEGATED: Highlighted rowStart: NINF History of tobacco use Passive smoker [facility] Functional Status Date Assessment Result Facility 07-23-2024 Patient Health Quest ionnaire 2 item (PHQ-2) [Reported] [facility] Clinical Notes 12-21-2021 to 09-07-2024 Allyssa Baez NP - 07/23/2024 10:59 AM Panfilo Baez NP - 07/23/2024 10:30 AM Panfilo Baez NP - 07/23/2024 6:38 AM Panfilo Baez NP - 07/23/2024 6:37 AM EDTPatient Instructions Note Date & Type Note Facility 09-07-2024 Note OR Cardiology - [facility] Subjective Jenifer Hernandez is a 84 y.o. year old female patient being seen for 6 mo follow up chronic diastolic heart failure, valvular disease, CAD, and PAF. She had routine labs with lipid panel in April 2024, and echo a few weeks ago. She's been doing very well. Denies chest pain, SOB, and LE edema. Denies bleeding on Xarelto as well. Patient Active Problem List Diagnosis Chronic atrial fibrillation (CMS/HCC) Chronic diastolic congestive heart failure (CMS/HCC) Coronary artery disease involving [place] coronary artery of [place] heart without angina pectoris History of coronary artery bypass graft Pulmonary HTN (CMS/HCC) Nonrheumatic tricuspid valve regurgitation Mitral valve regurgitation Chronic fatigue Establishing care with new doctor, encounter for HTN (hypertension) Hypercholesteremia Hypertensive heart disease with heart failure (CMS/HCC) Shortness of breath CKD (chronic kidney disease) Pulmonary hypertension (CMS/HCC) Stage 3b chronic kidney disease (CMS/HCC) Gastroesophageal reflux disease without esophagitis Numbness of fingers of both hands Type 2 diabetes mellitus with diabetic cataract (CMS/HCC) Type 2 diabetes mellitus without complications (CMS/HCC) Family History Problem Relation Name Age [...] respond to it. She was admitted to [facility] with decompensated HF in 05/2018. [...] 04/09/2019: Global left ventricular systolic function is nor (more content not included)... [facility] 07-23-2024 History of Present illness Narrative Associated Problem(s): Numbness of fingers of both hands Trial vit b 12 supplement 1,0000 mcg daily Images from the original note were not included. Jenifer Hernandez is a 84 y.o. female presents with chief complaint of Medicare Annual Wellness Visit Initial HPI: Diet:variety, no food poverty Activity: no organized, does her house work Mental Health Concerns: some anxiety, Falls in the last year: no Still driving: yes Do you pay your bills: yes Any hearing problems: no Any Vision problems: wear glasses, last exam 3 years Any Hospitalizations in the last year: no Specialist: [facility] Saúl HCPOA/Living Will: no Concerns: NT in bilat hands L>R Travels down some into fingers, no weakness to hands or arms, no neck pain. SUBJECTIVE: MEDICATIONS: Current Outpatient Medications Medication Instructions albuterol HFA (ProAir HFA) 90 mcg/act inhaler 2 puffs, Every 4 hours PRN atorvastatin (LIPITOR) 20 mg, Oral, Every evening bumetanide (BUMEX) 2 mg, 2 times daily cyanocobalamin (VITAMIN B-12) 1,000 mcg, Daily ferrous sulfate (FEROSUL) 325 mg, Oral, Daily with breakfast isosorbide mononitrate ER (IMDUR) 30 mg, Daily RT magnesium oxide (MAG-OX) 400 mg, Daily metoprolol tartrate (LOPRESSOR) 150 mg, Oral, 2 times daily pantoprazole (PROTONIX) 40 mg, Daily before breakfast potassium chloride CR (Klor-Con M20) 20 MEQ ER tablet 20 mEq, Daily rivaroxaban (XARELTO) 15 mg, Daily spironolactone (ALDACTONE) 12.5 mg, Oral, Daily RT ALLERGIES: Allergies Allergen Reactions Penicillin G Sulfa Antibiotics REVIEW OF SYMPTOMS: Review of Systems Constitutional: Negative for appetite change, chills and fever. HENT: Negative for congestion, ear pain and sore throat. Eyes: Negative for pain, discharge, redness and visual disturbance. Respiratory: Negative for cough, shortness of breath and wheezing. Cardiovascular: Negative for chest pain, palpitations and leg swelling. Gastrointestinal: Negative for abdominal pain, blood in stool, constipation, diarrhea, nausea and vomiting. Genitourinary: Negative for difficulty urinating, dysuria and frequency. Musculoskeletal: Negative for arthralgias, back pain, joint swelling and myalgias. Skin: Negative for rash and wound. Neurological: Positive for numbness. Negative for dizziness, tremors, seizures, syncope and headaches. Psychiatric/Behavioral: Negative for behavioral problems, self-injury and suicidal ideas. The patient is not nervous/anxious. Hematological: Does not bruise/bleed easily. Endocrine: Negative for polydipsia, polyphagia and polyuria. Allergic/Immunologic: Negative for environmental allergies and food allergies. PAST MEDICAL HISTORY Past Medical History: Diagnosis Date A-fib (CMS/HCC) High cholesterol (CMS/HCC) History of skin cancer Past Surgical History: Procedure Laterality Date CATARACT EXTRACTION CORONARY ARTERY BYPASS GRAFT family history includes Diabetes in her father and mother; HTN in her father and mother; Heart disease in her father and mother. OBJECTIVE: Visit Vitals BP 122/72 (BP Location: Left arm, Patient Position: Sitting, BP Cuff Size: Adult long) Pulse 79 Temp 98.3 F (Temporal) Resp 18 Wt 160 lb SpO2 96% BMI 27.46 kg/m OB Status No Periods Smoking Status Never BSA 1.81 m Physical Exam Vitals and nursing note reviewed. Constitutional: General: She is not in acute distress. Appearance: Normal appearance. HENT: Head: Normocephalic and atraumatic. Right Ear: External ear normal. Left Ear: External ear normal. Nose: Nose normal. Mouth/Throat: Mouth: Mucous membranes are moist. Eyes: Extraocular Movements: Extraocular movements intact. Conjunctiva/sclera: Conjunctivae normal. Neck: Vascular: No carotid bruit. Cardiovascular: Rate and Rhythm: Normal rate. Rhythm irregular. Pulses: Normal pulses. Heart sounds: Murmur heard. Pulmonary: Effort: Pulmonary effort is normal. Breath sounds: Normal breath sounds. No wheezing or rhonchi. Abdominal: General: Bowel sounds are normal. There is no distension. Palpations: Abdomen is soft. There is no mass. Tenderness: There is no abdominal tenderness. Musculoskeletal: General: Normal range of motion. Cervical back: Normal range of motion and neck supple. Right lower leg: Edema present. Left lower leg: Edema present. Comments: No thenar atrophy, no discoloration, +radial/ulnar bilat Cervical near full ROM Skin: General: Skin is warm and dry. Capillary Refill: Capillary refill takes 2 to 3 seconds. Findings: No rash. Neurological: General: No focal deficit present. Mental Status: She is alert and oriented to person, place, and time. Psychiatric: Mood and Affect: Mood normal. Behavior: Behavior normal. Thought Content: Thought content normal. Judgment: Judgment normal. ASSESSMENT AND PLAN: Follow up in about 3 months (around 10/23/2024) for Recheck. Problem List Items Addressed This Visit HTN (hypertension) ([facility]) Please check blood pressure daily and record DASH diet Limit caffeine Take medication as directed Contact office if chest pain, pressure, dizziness, shortness of breath, swelling legs Recommend slow position changes Current meds: imdur, bblocker, aldactone Chronic diastolic heart failure ([facility]) Managed by [facility] Cardiology Current meds: imdur, b dayna, diuretics Chronic atrial fibrillation, unspecified ([facility]) Current meds: xarelto, b dayna [facility] Cardiology Coronary artery disease involving c[place] coronary artery of [place] heart without angina pectoris ([facility]) Current meds: statin, imdur, b dayna [facility] Cardiology Chronic kidney disease, stage 3b (HCC) ([facility]) Continued monitoring Goals: good BP and DM control Encounter for subsequent annual wellness visit (AWV) in Medicare patient - Primary Reviewed Ht/Wt/BMI Recommend eye exam yearly Recommend dental exams twice a year Balance work/leisure activities Exercises is recommended most days of the week (appropriate as chronic conditions allow) Follow up yearly and prn Type 2 diabetes mellitus with diabetic chronic kidney disease ([facility]) Type 2 diabetes mellitus with diabetic cataract ([facility]) Numbness of fingers of both hands Trial vit b 12 supplement 1,0000 mcg daily Associated Problem(s): Encounter for subsequent annual wellness visit (AWV) in Medicare patient Reviewed Ht/Wt/BMI Recommend eye exam yearly Recommend dental exams twice a year Balance work/leisure activities Exercises is recommended most days of the week (appropriate as chronic conditions allow) Follow up yearly and prn Associated Problem(s): Chronic kidney disease, stage 3b (HCC) (CMS/HCC) Continued monitoring Goals: good BP and DM control Associated Problem(s): HTN (hypertension) (CMS/HCC) Please check blood pressure daily and record DASH diet Limit caffeine Take medication as directed Contact office if chest pain, pressure, dizziness, shortness of breath, swelling legs Recommend slow position changes Current meds: imdur, bblocker, aldactone Associated Problem(s): Coronary artery disease involving [place] coronary artery of [place] heart without angina pectoris (CMS/HCC) Current meds: statin, imdur, b dayna [facility] Cardiology Associated Problem(s): Chronic diastolic heart failure (CMS/HCC) Managed by [facility] Cardiology Current meds: imdur, b dayna, diuretics Associated Problem(s): Chronic atrial fibrillation, unspecified (CMS/HCC) Current meds: xarelto, b dayna [facility] Cardiology documented in this encounter [facility] 07-23-2024 Instructions Allyssa Baez NP - 07/23/2024 10:30 AM EDT Recommend diabetic eye exam: call to schedule with your eye doctor Pneumonia vaccine: you are due for one of these, you can go to your local pharmacy and get that For Numbness in hands: try Vit B12 (cyanocobalamine) 1,0000 mcg once a day (look in vit section at the pharmacy) documented in this encounter [facility] 05-26-2024 History of Present illness Narrative Pt has been having numbness in all finger types, started in the left hand and has moved to right hand. 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 Not due til her 6 month check up Images from the original note were not included. Jenifer Hernandez is a 84 y.o. female presents with chief complaint of Hypertension HPI: Sees cardiology for HF, a fib, valvular heart disease: see notes for specifics Hypertension This is a chronic problem. The current episode started more than 1 year ago. The problem is unchanged. The problem is controlled. Associated symptoms include palpitations (occ), peripheral edema and shortness of breath (occ). Pertinent negatives include no blurred vision, chest pain, headaches or PND. Past treatments include beta blockers, diuretics and direct vasodilators. The current treatment provides significant improvement. There are no compliance problems. Hypertensive end-organ damage includes kidney disease, CAD/NE and heart failure. Identifiable causes of hypertension include chronic renal disease. SUBJECTIVE: MEDICATIONS: Current Outpatient Medications Medication Instructions albuterol HFA (ProAir HFA) 90 mcg/act inhaler 2 puffs, Every 4 hours PRN atorvastatin (LIPITOR) 20 mg, Oral, Daily bumetanide (BUMEX) 2 mg, 2 times daily ferrous sulfate (FEROSUL) 325 mg, Oral, Daily with breakfast isosorbide mononitrate ER (IMDUR) 30 mg, Daily RT magnesium oxide (MAG-OX) 400 mg, Daily metoprolol tartrate (LOPRESSOR) 150 mg, Oral, 2 times daily pantoprazole (PROTONIX) 40 mg, Daily before breakfast potassium chloride CR (Klor-Con M20) 20 MEQ ER tablet 20 mEq, Daily rivaroxaban (XARELTO) 15 mg, Daily spironolactone (ALDACTONE) 12.5 mg, Oral, Daily RT ALLERGIES: Allergies Allergen Reactions Penicillin G Sulfa Antibiotics REVIEW OF SYMPTOMS: Review of Systems Constitutional: Negative for appetite change, chills and fever. HENT: Negative for congestion, ear pain and sore throat. Eyes: Negative for blurred vision, pain, discharge, redness and visual disturbance. Respiratory: Positive for shortness of breath (occ). Negative for cough and wheezing. Cardiovascular: Positive for palpitations (occ) and leg swelling. Negative for chest pain and PND. Gastrointestinal: Negative for abdominal pain, blood in stool, constipation, diarrhea, nausea and vomiting. Genitourinary: Negative for difficulty urinating, dysuria and frequency. Musculoskeletal: Negative for arthralgias, back pain, joint swelling and myalgias. Skin: Negative for rash and wound. Neurological: Negative for dizziness (occ), tremors, seizures, syncope and headaches. Psychiatric/Behavioral: Negative for behavioral problems, self-injury and suicidal ideas. The patient is not nervous/anxious. Hematological: Does not bruise/bleed easily. Endocrine: Negative for polydipsia, polyphagia and polyuria. Allergic/Immunologic: Negative for environmental allergies and food allergies. PAST MEDICAL HISTORY Past Medical History: Diagnosis Date A-fib ([facility]) High cholesterol ([facility]) History of skin cancer Past Surgical History: Procedure Laterality Date CATARACT EXTRACTION CORONARY ARTERY BYPASS GRAFT family history includes Diabetes in her father and mother; HTN in her father and mother; Heart disease in her father and mother. OBJECTIVE: Visit Vitals BP 128/68 (BP Location: Left arm, Patient Position: Sitting, BP Cuff Size: Adult long) Pulse 55 Temp 98.5 F (Temporal) Resp 20 Wt 159 lb SpO2 99% BMI 27.29 kg/m OB Status No Periods Smoking Status Never BSA 1.8 m Physical Exam Vitals and nursing note reviewed. Constitutional: General: She is not in acute distress. Appearance: Normal appearance. HENT: Head: Normocephalic and atraumatic. Right Ear: External ear normal. Left Ear: External ear normal. Nose: Nose normal. Mouth/Throat: Mouth: Mucous membranes are moist. Eyes: Extraocular Movements: Extraocular movements intact. Conjunctiva/sclera: Conjunctivae normal. Neck: Vascular: No carotid bruit. Cardiovascular: Rate and Rhythm: Normal rate. Rhythm irregular. Pulses: Normal pulses. Heart sounds: Murmur heard. Pulmonary: Effort: Pulmonary effort is normal. Breath sounds: Normal breath sounds. No wheezing or rhonchi. Abdominal: General: Bowel sounds are normal. There is no distension. Palpations: Abdomen is soft. There is no mass. Tenderness: There is no abdominal tenderness. Musculoskeletal: General: Normal range of motion. Cervical back: Normal range of motion and neck supple. Right lower leg: Edema present. Left lower leg: Edema present. Comments: Trace pre tibial/pedal Lymphadenopathy: Cervical: No cervical adenopathy. Skin: General: Skin is warm and dry. Capillary Refill: Capillary refill takes 2 to 3 seconds. Findings: No rash. Neurological: General: No focal deficit present. Mental Status: She is alert and oriented to person, place, and time. Psychiatric: Mood and Affect: Mood normal. Behavior: Behavior normal. Thought Content: Thought content normal. Judgment: Judgment normal. ASSESSMENT AND PLAN: Follow up in about 6 weeks (around 07/07/2024) for Recheck. Problem List Items Addressed This Visit HTN (hypertension) ([facility]) - Primary Please check blood pressure daily and record DASH diet Limit caffeine Take medication as directed Contact office if chest pain, pressure, dizziness, shortness of breath, swelling legs Recommend slow position changes Current meds: imdur, bblocker, aldactone Chronic diastolic heart failure (CMS/HCC) Managed by [facility] Cardiology Current meds: imdur, b dayna, diuretics Chronic atrial fibrillation, unspecified ([facility]/HCC) Current meds: xarelto, b dayna [facility] Cardiology Coronary artery disease involving [place] coronary artery of [place] heart without angina pectoris ([facility]/HCC) Current meds: statin, imdur, b dayna [facility] Cardiology Nonrheumatic tricuspid valve regurgitation Per [facility] Cardiology mgmt Pulmonary HTN ([facility]/HCC) Findings confirmed through heart cath Chronic kidney disease, stage 3b (HCC) ([facility]) Continued monitoring Relevant Medications ferrous sulfate (FeroSul) 325 (65 Fe) MG tablet Mixed hyperlipidemia (CMS/HCC) On statin therapy Check labs yearly and prn dose changes Gastroesophageal reflux disease without esophagitis Recommendations: freq small meals, nothing to eat or drink at least 2 hours prior to bed, limit caffeine, alcohol, as well as spicy foods Meds to limit or avoid if possible: NSAIDS Elevate HOB if possible Current meds: pantoprazole Type 2 diabetes mellitus without complications No current medications are being taken A1c: 6.3% 05/26/24 Relevant Orders POCT glycosylated hemoglobin (Hb A1C) docked device (Completed) Associated Problem(s): Chronic diastolic heart failure (CMS/HCC) Managed by [facility] Cardiology Current meds: imdur, b dayna, diuretics Associated Problem(s): Mixed hyperlipidemia (CMS/HCC) On statin therapy Check labs yearly and prn dose changes Associated Problem(s): Type 2 diabetes mellitus without complications No current medications are being taken A1c: 6.3% 05/26/24 Associated Problem(s): Chronic kidney disease, stage 3b (HCC) (CMS/HCC) Continued monitoring Associated Problem(s): Gastroesophageal reflux disease without esophagitis Recommendations: freq small meals, nothing to eat or drink at least 2 hours prior to bed, limit caffeine, alcohol, as well as spicy foods Meds to limit or avoid if possible: NSAIDS Elevate HOB if possible Current meds: pantoprazole Associated Problem(s): Pulmonary HTN (CMS/HCC) Findings confirmed through heart cath Associated Problem(s): Nonrheumatic tricuspid valve regurgitation Per [facility] Cardiology mgmt Associated Problem(s): HTN (hypertension) (CMS/[facility]) Please check blood pressure daily and record DASH diet Limit caffeine Take medication as directed Contact office if chest pain, pressure, dizziness, shortness of breath, swelling legs Recommend slow position changes Current meds: imdur, bblocker, aldactone Associated Problem(s): Coronary artery disease involving cedarville coronary artery of cedarville heart without angina pectoris (CMS/[facility]) Current meds: statin, imdur, b dayna [facility] Cardiology Associated Problem(s): Chronic atrial fibrillation, unspecified ([facility]) Current meds: xarelto, b dayna [facility] Cardiology documented in this encounter [facility] 05-26-2024 Instructions Allyssa Baez NP - 05/26/2024 9:00 AM EDT No dose changes in medications Schedule Medicare Wellness documented in this encounter [facility] 05-13-2024 Telephone encounter Note Please tell pt that overall her labs are stable With exception of her kidney function which has worsen somewhat. I know cardiology has been adjusting her water pills for her heart failure. We will forward a copy of her kidney function to them to see if they want to make any changes [place] [facility] 05-13-2024 Miscellaneous Notes Please tell pt that overall her labs are stable With exception of her kidney function which has worsen somewhat. I know cardiology has been adjusting her water pills for her heart failure. We will forward a copy of her kidney function to them to see if they want to make any changes [place] documented in this encounter [facility] 01-13-2024 Note OR Cardiology - [facility] Subjective Jenifer Hernandez is a [...] heart failure (CMS/HCC) Coronary artery disease involving cedarville coronary artery of [place] heart without angina pectoris History of coronary [...] respond to it. She was admitted to [facility] with decompensated HF in 05/2018. [...] The right wes (more content not included)... [facility] 01-09-2024 History of Present illness Narrative [...] kidney disease (HCC) (CMS/HCC) eGFR is 32. 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 Likely r/t HF. Pt states she was unaware of this and has never been referred to or seen nephrology in the past. Referral sent to Nephrology in [place]. Pt did not follow up yet. Images [...] Continue current regimen. CKD: eGFR is 34. 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 Likely r/t HF. Pt states she was unaware of this and has never been referred to or seen nephrology in the past. Referral sent to Nephrology in [place]. Pt did not follow up yet. Review [...] kidney disease (HCC) (CMS/HCC) eGFR is 32. 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 Likely r/t HF. Pt states she was unaware of this and has never been referred to or seen nephrology in the past. Referral sent to Nephrology in [place]. Pt did not follow up yet. documented in this encounter [facility] 12-18-2023 Note OR Cardiology - [facility] Subjective Jenifer Hernandez is a 83 y.o. year old female patient being seen for follow-up visit Patient Active Problem List Diagnosis Chronic atrial fibrillation (CMS/HCC) Chronic diastolic congestive heart failure (CMS/HCC) Coronary artery disease involving cedarville coronary artery of [place]edar[place] heart without angina pectoris History of coronary [...] , Rfl: ergocalciferol (Vitamin D-2) 1.25 MG (95892 Units) capsule, Vitamin D2 1,250 mcg (50,000 [...] TABLETS BY MO (more content not included)... [facility] 10-14-2023 History of Present illness Narrative Associated Problem(s): Stage 3b chronic kidney disease (HCC) (CMS/HCC) eGFR is 34. 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 Likely r/t HF. Pt states she was unaware of this and has never been referred to or seen nephrology in the past. Referral sent to Nephrology in [place]. Consider adding SLGT-2 today. Will discuss with [employer] Consultant first. Associated Problem(s): Chronic fatigue Iron deficiency; Taking Ferrous sulfate. Chronic diastolic HF. TSH normal. Associated Problem(s): Hypercholesteremia (CMS/HCC) On Atorvastatin 20mg Denies myalgias; Last lipid panel looks great Continue current regimen. 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 Pt states she was unaware of this and has never been referred to or seen nephrology in the past. Referral sent to Nephrology in [place]. Consider adding SLGT-2 today. Will discuss with [employer] Consultant first. Associated Problem(s): HTN (hypertension) (CMS/HCC) Metoprolol [...] who presents for Follow-up (NEW MEDS FROM JOB SETTER). HPI HTN: Metoprolol 100mg and Isosorbide 30mg Denies orthostatic changes Denies edema Does not check BP at home; Given BP log today in office. Educated on accurate BP measuring steps. Advised pt to check once per day in the afternoon and bring back to next visit. HF: Follows with Cardiology; [place]. 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 Pt states she was unaware of this and has never been referred to or seen nephrology in the past. Referral sent to Nephrology in [place]. Consider adding SLGT-2 today. Will discuss with [employer] Consultant first. Fatigue: Iron deficiency; Taking Ferrous sulfate. [...] ALBUMIN GLOBULIN RATIO 0.8 0.9 Resulting Agency [facility] Narrative Review of Systems Constitutional: [...] List Items Addressed This Visit HTN (hypertension) ([facility]) Metoprolol 100mg and Isosorbide 30mg Denies orthostatic changes Denies edema Does not check BP at home; Given BP log today in office. Educated on accurate BP measuring steps. Advised pt to check once per day in the afternoon and bring back to next visit. Continue medications as directed. Hypercholesteremia ([facility]) - Primary On Atorvastatin 20mg Denies myalgias; Last lipid panel looks great Continue current regimen. Chronic fatigue Iron deficiency; Taking Ferrous sulfate. Chronic diastolic HF. TSH normal. Hypertensive heart disease with heart failure ([facility]/HCC) Follows with Cardiology; Mark. 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 Pt states she was unaware of this and has never been referred to or seen nephrology in the past. Referral sent to Nephrology in [place]. Consider adding SLGT-2 today. Will discuss with [employer] Consultant first. Relevant Medications spironolactone (Aldactone) 25 MG tablet Other Relevant Orders Ambulatory referral to Nephrology Stage 3b chronic kidney disease (HCC) ([facility]) eGFR is 34. 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 Likely r/t HF. Pt states she was unaware of this and has never been referred to or seen nephrology in the past. Referral sent to Nephrology in [place]. Consider adding SLGT-2 today. Will discuss with [employer] Consultant first. Relevant Orders Ambulatory referral to Nephrology Other Visit Diagnoses Cerumen debris on tympanic membrane of both ears Relevant Medications carbamide peroxide (Debrox) 6.5 % otic solution documented in this encounter [facility] 10-14-2023 Instructions Shell Hemphill NP - 10/14/2023 [...] sleep per night. documented in this encounter [facility] 09-25-2023 Note OR Cardiology - [facility] Subjective Jenifer Hernandez is a 83 y.o. year old female patient being seen for follow up [facility] and [facility]. SOB w/ exertion and LE edema has resolved she says. Denies chest pain, palpitations, and bleeding on Xarelto. Had BMP last week. Patient Active Problem List Diagnosis Chronic atrial fibrillation (CMS/HCC) Chronic diastolic congestive heart failure (CMS/HCC) Coronary artery disease involving cedarville coronary artery of [place] heart without angina pectoris History of coronary [...] respond to it. She was admitted to [facility] with decompensated HF in 05/2018. [...] The echocardiographic picture (more content not included)... 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 Use of blood products discussed with patient who consented to blood products. Additional Equipment Requests [facility] 01-18-2022 Note OPERATIVE NOTE OPERATION DATE: [...] ensuring mobility, phacoemulsification was performed in a befibcw-[id number]-type fashion. After all nuclear material had been [...] the following day for postoperative care. [facility] 01-18-2022 Note HISTORY AND PHYSICAL EXAMINATION Date:01/17/2022 [...] go forward with her elective procedure. [facility] 12-21-2021 Note HISTORY AND PHYSICAL EXAMINATION Date:12/20/2021 [...] go forward with her elective procedure. [facility] 12-21-2021 Note OPERATIVE NOTE OPERATION DATE: 12/21/2021 [...] ensuring mobility, phacoemulsification was performed in a dnszzel-jjl-oljmjf-type fashion. After all nuclear material had been [...] the following day for postoperative care. 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/HCC) Unspecified hypertensive heart disease with heart failure Hypertension, unspecified type (CMS/HCC) Cerumen debris on tympanic membrane of both ears Stage 3b chronic kidney disease (HCC) (CMS/HCC) Chronic fatigue Other malaise and fatigue documented [...] aortocoronary bypass status Coronary artery disease involving cedar[place] coronary artery of [place] heart without angina pectoris (CMS/HCC) Chronic atrial [...] aortocoronary bypass status Coronary artery disease involving [place] coronary artery of [place] heart without angina pectoris (CMS/HCC) Chronic atrial [...] (CMS/HCC) Chronic diastolic heart failure Other hyperlipidemia Chronic fatigue Other malaise and fatigue Shortness of breath Pulmonary HTN (CMS/HCC) Hypertensive heart disease with heart failure (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 Coronary artery disease involving cedar[place] coronary artery of [place] heart without angina pectoris (CMS/HCC) Chronic atrial [...] Hypertension, unspecified type (CMS/HCC)- Primary Other hyperlipidemia Stage 3b chronic kidney disease (HCC) (CMS/HCC) Primary hypertension (CMS/HCC)- Primary Unspecified essential hypertension Chronic atrial fibrillation, unspecified (CMS/HCC) Type 2 diabetes mellitus without complications Chronic kidney disease, stage 3b (HCC) (CMS/HCC) Coronary artery disease involving cedar[place] coronary artery of [place] heart without angina pectoris (CMS/HCC) Nonrheumatic tricuspid valve regurgitation Pulmonary HTN (CMS/HCC) Gastroesophageal reflux disease without esophagitis Esophageal reflux Mixed hyperlipidemia (CMS/HCC) Mixed hyperlipidemia Chronic diastolic heart failure (CMS/HCC) Chronic diastolic heart failure documented in this encounter [facility]* Diagnosis Primary hypertension (CMS/HCC)- Primary Unspecified essential hypertension Hypercholesteremia (CMS/HCC) Pure hypercholesterolemia Chronic diastolic heart failure (CMS/HCC) Chronic diastolic heart failure Other hyperlipidemia Chronic fatigue Other malaise and fatigue Shortness of breath Pulmonary HTN (CMS/HCC) Hypertensive heart disease with heart failure (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 Coronary artery disease involving c[place] coronary artery of [place] heart without angina pectoris (CMS/HCC) Chronic atrial [...] Hypertension, unspecified type (CMS/HCC)- Primary Other hyperlipidemia Stage 3b chronic kidney disease (HCC) (CMS/HCC) Primary hypertension (CMS/HCC)- Primary Unspecified essential hypertension Chronic atrial fibrillation, unspecified (CMS/HCC) Type 2 diabetes mellitus without complications Chronic kidney disease, stage 3b (HCC) ([facility]/HCC) Coronary artery disease involving c[place] coronary artery of [place] heart without angina pectoris (CMS/HCC) Nonrheumatic tricuspid valve regurgitation Pulmonary HTN (CMS/HCC) Gastroesophageal reflux disease without esophagitis Esophageal reflux Mixed hyperlipidemia (CMS/HCC) Mixed hyperlipidemia Chronic diastolic heart failure (CMS/HCC) Chronic diastolic heart failure Hypercholesteremia (CMS/HCC) Pure hypercholesterolemia documented in this encounter [facility]* Diagnosis Primary hypertension (CMS/HCC)- Primary Unspecified essential hypertension Hypercholesteremia (CMS/HCC) Pure hypercholesterolemia Chronic diastolic heart failure (CMS/HCC) Chronic diastolic heart failure Other hyperlipidemia Chronic fatigue Other malaise and fatigue Shortness of breath Pulmonary HTN (CMS/HCC) Hypertensive heart disease with heart failure (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 Coronary artery disease involving c[place] coronary artery of [place] heart without angina pectoris (CMS/HCC) Chronic atrial [...] Hypertension, unspecified type (CMS/HCC)- Primary Other hyperlipidemia Stage 3b chronic kidney disease (HCC) (CMS/HCC) Primary hypertension (CMS/HCC)- Primary Unspecified essential hypertension Chronic atrial fibrillation, unspecified (CMS/HCC) Type 2 diabetes mellitus without complications Chronic kidney disease, stage 3b (HCC) (CMS/HCC) Coronary artery disease involving cedar[place] coronary artery of [place] heart without angina pectoris (CMS/HCC) Nonrheumatic tricuspid valve regurgitation Pulmonary HTN (CMS/HCC) Gastroesophageal reflux disease without esophagitis Esophageal reflux Mixed hyperlipidemia (CMS/HCC) Mixed hyperlipidemia Chronic diastolic heart failure (CMS/HCC) Chronic diastolic heart failure Encounter for subsequent annual wellness visit (AWV) in Medicare patient- Primary Chronic atrial fibrillation, unspecified (CMS/HCC) Chronic diastolic heart failure (CMS/HCC) Chronic diastolic heart failure Coronary artery disease involving cedar[place] coronary artery of [place] heart without angina pectoris (CMS/HCC) Primary hypertension ([facility]/HCC) Unspecified essential hypertension Chronic kidney disease, stage 3b (HCC) ([facility]/HCC) Type 2 diabetes mellitus with diabetic chronic kidney disease ([facility]/HCC) Type 2 diabetes mellitus with diabetic cataract ([facility]/HCC) Type II or unspecified type diabetes mellitus with ophthalmic manifestations, not stated as uncontrolled Numbness of fingers of both hands Disturbance of skin sensation documented [facility] encounter [facility]* Diagnosis Primary hypertension- Primary Unspecified essential hypertension Hypercholesteremia Pure hypercholesterolemia Chronic diastolic heart failure (HCC) Chronic diastolic heart failure Other hyperlipidemia Chronic fatigue Other malaise and fatigue Shortness of breath Pulmonary HTN (HCC) Hypertensive heart disease with heart failure (HCC) Unspecified hypertensive heart disease with 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 Coronary artery disease involving c[place] coronary artery of [place] heart without angina pectoris Chronic atrial fibrillation, unspecified (HCC) Establishing care with new doctor, encounter for Shortness of breath- Primary Hypokalemia Hypopotassemia Chronic diastolic heart failure (HCC)- Primary Chronic diastolic heart failure Hypokalemia Hypopotassemia Shortness of breath Acute on chronic diastolic HF (heart failure) (HCC) Acute on chronic diastolic heart failure Hypercholesteremia- Primary Pure hypercholesterolemia Hypertensive heart disease with heart failure (HCC) Unspecified hypertensive heart disease with heart failure Hypertension, unspecified type Cerumen debris on tympanic membrane of both ears Stage 3b chronic kidney disease (CMS-HCC) Chronic fatigue Other malaise and fatigue Hypertension, unspecified type- Primary Other hyperlipidemia Stage 3b chronic kidney disease (CMS-HCC) Primary hypertension- Primary Unspecified essential hypertension Chronic atrial fibrillation, unspecified (HCC) Type 2 diabetes mellitus without complications (HCC) Chronic kidney disease, stage 3b (CMS-HCC) Coronary artery disease involving c[place] coronary artery of [place] heart without angina pectoris Nonrheumatic tricuspid valve regurgitation Pulmonary HTN (HCC) Gastroesophageal reflux disease without esophagitis Esophageal reflux Mixed hyperlipidemia Mixed hyperlipidemia Chronic diastolic heart failure (HCC) Chronic diastolic heart failure Encounter for subsequent annual wellness visit (AWV) in Medicare patient- Primary Chronic atrial fibrillation, unspecified (HCC) Chronic diastolic heart failure (HCC) Chronic diastolic heart failure Coronary artery disease involving cedar[place] coronary artery of [place] heart without angina pectoris Primary hypertension Unspecified essential hypertension Chronic kidney disease, stage 3b (CMS-HCC) 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 (HCC) Type II or unspecified type diabetes mellitus with ophthalmic manifestations, not stated as uncontrolled Numbness of fingers of both hands Disturbance of skin sensation Chronic diastolic heart failure (HCC) Chronic diastolic heart failure documented [facility] encounter [facility]* Diagnosis Onset Date Resolution Status Admit Date Hyperlipidemia, mixed acute Oct 1:51pm [facility] Work Phone: Reason for referral (narrative)* Consultation (Routine) - Pending Review Specialty Diagnoses / Procedures Referred By Contsu t Referred To Contact Nephrology Diagnoses Hypertensive heart disease with heart failure (CMS/HCC) Stage 3b chronic kidney disease (HCC) (CMS/HCC) Procedures ME OFFICE/OUTPATIENT [facility] 60 MINUTES Shell Hemphill NP [address] [place] [address] Jimmy Wilde MD [address] [place] [address] Referral ID Status Reason Start Date Expiration Date Visits Requested Visits Authorized [id number] Pending Review Specialty Services Required 10/14/2023 04/11/2024 1 1 Scheduling Instructions Please include OV note from today 10/13 [facility] MikaReason for referral (narrative)No reason for referral [facility] Work Phone: Summary Purpose Family History Relationship Condition Age at Onset Recorded Date/T christian mother Diabetes mellitus Unknown Heart disease Unknown Hypertension Unknown father Heart disease Unknown son Diabetes mellitus Unknown Advance Directives Advance Directive Response Recorded Date/ Time Advance Directives No June 12, 019 7:51am Hospital Course Note MR#: [id number] I [facility] Pt. Name: Jenifer Hernandez Admitted: 12/17/2018 Discharged: [...] content not included)... Note MR#: [id number] I [facility] Pt. Name: Jenifer Hernandez Admitted: 01/05/2019 Discharged: 01/14/2019 Date of : 1940 Physician: Amy Head MD DISCHARGE SUMMARY PRIMARY CARE PHYSICIAN: Edu Odonnell. ADMITTING DIAGNOSES: 1. Acute kidney injury on chronic kidney disease. 2. Drug-induced symptomatic severe bradycardia with hemodynamic compromise. DISCHARGE DIAGNOSES: 1. Drug-induced symptomatic severe bradycardia with hemodynamic compromise. 2. 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 Bhfzy-in-iqspyvd biventricular systolic and diastolic heart failure exacerbation. 4. Severe pulmonary hypertension. 5. Severe tricuspid regurgitation. 6. Bilateral pleural effusion. 7. Chronic atrial fibrillation. 8. Chronic anticoagulation. 9. Iron deficiency normocytic anemia. 10. Physical deconditioning. HOSPITAL COURSE: She presented to the ED with complaints of exertional dizziness and lightheadedness for 2 days with being recently discharge (more content not included)... Note MR#: [id number] [facility] Pt. Name: Margot Hernandezte Surgery Date: 12/19/2018 Room #: [id number] Date of : 1940 PROCEDURE NOTE ATTENDING: [...] not included)... Procedure Findings Note MR#: [id number] [facility] Pt. Name: Margot Hernandezte Surgery Date: 12/19/2018 Room #: [id number] Date of : 1940 PROCEDURE NOTE ATTENDING: [...] the esophagus. Part (more content not included)... Chief Complaint and Reason for Visit Chief Complaint Admit Date 3M F/U November 12, 2024 1:51pm Reason for Visit Admit Date Hyperlipidemia, mixed November 12 1:51pm Additional Source Comments INFORMATION SOURCE (unrecogn ized section and content) DATE CREATED AUTHOR 04/10/2019 [facility] DATE CREATED AUTHOR AUTHOR'S ORGANIZ ATION 05/07/2021 [facility] DATE CREATED AUTHOR AUTHOR'S ORGANIZ ATION 02/07/2022 [facility] p[facility] DATE CREATED AUTHOR AUTHOR'S ORGANIZ ATION 07/24/2024 [facility] EPIC DATE CREATED AUTHOR AUTHOR'S ORGANIZ ATION 09/09/2024 [facility] Reason for Visit (unrecogniz ed section and content) Reason Onset Date Comments Med Refill 11/25/2023 Reason Comments Follow-up Reason Comments Follow-up NEW MEDS FROM CARDIO LOGIST Reason Onset Date Comments Med Refill 02/20/2024 Reason Comments Med Refill Reason Comments Hypertension Reason Onset Date Comments Med Refill 06/22/2024 Reason Comments Medicare Annual Wellness Visit Initial Reason Onset Date Comments Med Refill 07/30/2024 Care Teams (unrecognized sec tion and content) Neurological Surgeon Relationship Specialty Start Date End Date Keith Foley MD [address] [place] [address] PCP - General Family Medicine 10/02/23 Shell Hemphill NP [address] [place] [address] Nurse Practitioner Family Medicine 10/02/23 Neurological Surgeon Relationship Specialty Start Date End Date Keith Foley MD [address] [place] [address] PCP - General Family Medicine 10/02/23 Shell Hemphill NP [address] [place] [address] Nurse Practitioner Family Medicine 10/02/23 Neurological Surgeon Relationship Specialty Start Date End Date Keith Foley MD [address] [place] [address] PCP - General Family Medicine 10/02/23 Shell Hemphill NP [address] [place] [address] Nurse Practitioner Family Medicine 10/02/23 Neurological Surgeon Relationship Specialty Start Date End Date Keith Foley MD [address] [place] [address] PCP - General Family Medicine 10/02/23 Shell Hemphill NP [address] [place] [address] Nurse Practitioner Family Medicine 10/02/23 Neurological Surgeon Relationship Specialty Start Date End Date Keith Foley MD [address] [place] [address] PCP - General Family Medicine 10/02/23 Shell Hemphill NP [address] [place] [address] Nurse Practitioner Family Medicine 10/02/23 Neurological Surgeon Relationship Specialty Start Date End Date Keith Foley MD [address] [place] [address] PCP - General Family Medicine 10/02/23 Shell Hemphill NP [address] [place] [address] Nurse Practitioner Family Medicine 10/02/23 Neurological Surgeon Relationship Specialty Start Date End Date Keith Foley MD [address] [place] [address] PCP - General Family Medicine 10/02/23 Shell Hemphill NP [address] [place] [address] Nurse Practitioner Family Medicine 10/02/23 Neurological Surgeon Relationship Specialty Start Date End Date Keith Foley MD [address] [place] [address] PCP - General Family Medicine 10/02/23 Shell Hemphill NP [address] [place] [address] Nurse Practitioner Family Medicine 10/02/23 Neurological Surgeon Relationship Specialty Start Date End Date Keith Foley MD [address] [place] [address] PCP - General Family Medicine 10/02/23 Shell Hemphill NP [address] [place] [address] Nurse Practitioner Family Medicine 10/02/23 Neurological Surgeon Relationship Specialty Start Date End Date Keith Foley MD [address] [place] [address] PCP - General Family Medicine 10/02/23 Shell Hemphill NP [address] [place] [address] Nurse Practitioner Family Medicine 10/02/23 Neurological Surgeon Relationship Specialty Start Date End Date Keith Foley MD [address] [place] [address] PCP - General Family Medicine 10/02/23 Shell Hemphill NP [address] [place] [address] Nurse Practitioner Family Medicine 10/02/23 Neurological Surgeon Relationship Specialty Start Date End Date Keith Foley MD [address] [place] [address] PCP - General Family Medicine 10/02/23 Shell Hemphill NP [address] [place] [address] Nurse Practitioner Family Medicine 10/02/23 Neurological Surgeon Relationship Specialty Start Date End Date Keith Foley MD [address] [place] [address] PCP - General Family Medicine 10/02/23 Shell Hemphill NP [address] [place] [address] Nurse Practitioner Family Medicine 10/02/23 Neurological Surgeon Relationship Specialty Start Date End Date Keith Foley MD [address] [place] [address] PCP - General Family Medicine 10/02/23 Shell Hemphill NP [address] [place] [address] Nurse Practitioner Family Medicine 10/02/23 Neurological Surgeon Relationship Specialty Start Date End Date Keith Foley MD [address] [place] [address] PCP - General Family Medicine 10/02/23 Shell Hemphill NP [address] [place] [address] Nurse Practitioner Family Medicine 10/02/23 Neurological Surgeon Relationship Specialty Start Date End Date Keith Foley MD [address] [place] [address] PCP - General Family Medicine 10/02/23 Shell Hemphill NP [address] [place] [address] Nurse Practitioner Family Medicine 10/02/23 Team Status: Active Member Role Status Dates Joi Guajardo DO Primary Care Provider Active Team Status: Inactive Member Role Status Dates Joi Guajardo DO Primary Care Provider Active S tart: November 12, 2024 End: November 12, 2024 Joi Guajardo DO Attending Provider Active Star t: November 12, 2024 End: November 12, 2024 Goals (unrecognized section and content) Goals may be documented in a n alternate section FOR RECORDS PERTAINING TO PATIENTS WHO ARE [...] BE BASED ON THE PRIMARY CLINICAL RECORDS. [facility] [facility]. provides no warranty or guarantee of the accuracy or completeness of information in this document.
--- OUTSIDE RECORDS SUMMARY | 2024-11-20 07:57 | XMS_ITS | Encounter Summary ---
Author Organization [facility] Address [address] [place] [address] [place] [address] Care Team Providers Care Chaser Helper Name Role Phone Shaikh SAIGE Ruiz Primary Care Provider [phone] Keith Foley MD Primary Care Provider [phone] Sarah Hemphill REPAIRING CALIBRATOR Unavailable Encounter Details Date Type Department Care Team (Late st Contact Info) Description 05/23/2023 Clinisync Result Encounter [...] Name Priority Date/Time Associated Diagnosis Comments NM CARLITOS PERF SPECT REST STR 05/23/2023 2:04 PM EDT documented in this encounter Results * NM CARLITOS PERF SPECT REST STR (05/23/2023 2:04 PM EDT) Anatomical Region Laterality Modality Other 05/23/2023 2:04 PM EDT Narrative 05/23/2023 2:05 PM EDT The [address] [address] Nuclear Medicine Report Signed Patient: RICK HERNANDEZ MR#: [id number] : 1940 Acct:[id number] Age/Sex: 83 / F ADM Date: 05/22/23 Loc: [place] Attending Dr: HERBER ALLEN Ordering Physician: HERBER ALLEN Date of Service: 05/22/23 Procedure(s): NM carlitos perf SPECT rest str Accession Number(s): [id number] cc: Shaikh Missy Ruiz; HERBER ALLEN Patient Name: RICK HERNANDEZ MR#: [id number] : 1940 Exam Date: 05/22/2023 Ordering Doctor: DR HERBER ALLEN M.D. RADIOLOGY REPORT PROCEDURE: NM CARLITOS PERF SPECT REST STR COMPARISON: None. INDICATIONS: [...] the study was pending per attending physician Dr. ASHTON . For more details please see separate [...] Signed By: 05/23/23 1405 DD/ 1404 TD/TT: Cable Television Installer: Procedure Note Radiology, Radiologist, - 05/23/[address] [address] Nuclear Medicine Report Signed Patient: RICK HERNANDEZ SMR#: [id number] : 1940cct:[id number] Age/Sex: 83 / FADM Date: 05/22/23 Loc: [place] Attending Dr: HERBER ALLEN Ordering Physician: HERBER ALLEN Date of Service: 05/22/23 Procedure(s): NM carlitos perf SPECT rest str Accession Number(s): [id number] cc: Shaikh Missy Ruiz; HERBER ALLEN Patient Name: RICK HERNANDEZ MR#: [id number] : 1940 Exam Date: 05/22/2023 Ordering Doctor: DR HERBER ALLEN M.D. RADIOLOGY REPORT PROCEDURE: NM CARLITOS PERF SPECT REST STR COMPARISON: None. INDICATIONS: [...] M.D. Signed By:05/23/23 1405 DD/ 1404 TD/TT: Cable Television Installer: us Generic External Data Provider [facility] Final Result documented in this encounter Visit Diagnoses Not on filedocumented in this encounter Care Teams Chaser Helper Relationship Specialty Start Date End Date Shaikh Ruiz MD PCP - General Internal Medicine 04/25/23 10/01/23 Keith Foley MD PCP - General Family Medicine 10/02/23 Sarah Hemphill NP Nurse Practitioner Family Medicine 10/02/23 documented as of this encounter
--- OUTSIDE RECORDS SUMMARY | 2024-11-20 07:57 | XMS_ITS | Encounter Summary ---
Author Organization [facility] Address [address] [place] [address] Care Team Providers Care Patient Svcs Mgr Name Role Phone Keith Foley MD Primary Care Provider [phone] Sarah Hemphill CONCRETE PLANT LABORER Unavailable [phone] Encounter Details Date Type Department Care Team (Late st Contact Info) Description 11/29/2023 Clinisync Result Encounter [...] EDT Narrative 11/29/2023 6:19 PM EDT The [address] [address] Cardiology Report Signed Patient: RICK HERNANDEZ MR#: [id number] : 1940 Acct:[id number] Age/Sex: 83 / F ADM Date: 11/29/23 Loc: CARD Attending Dr: HERBER FLORES Ordering Physician: HERBER FLORES Date of Service: 11/29/23 Procedure(s): CA echo doppler complete Accession Number(s): [id number] cc: Shaikh Missy Ruiz; HERBER FLORES Patient Name: RICK HERNANDEZ MR#: [id number] : 1940 Exam Date: 11/29/2023 Ordering Doctor: [...] 18:18 Dictated By: HERBER FLORES Signed By: 10/01/11 1819 DD/ 17 TD/TT: Transport Manager: Procedure Note Radiology, Radiologist, - 12/02/[address] [address] Cardiology Report Signed Patient: RICK HERNANDEZ SMR#: [id number] : 1940cct:[id number] Age/Sex: 83 / FADM Date: 11/29/23 Loc: CARD Attending Dr: HERBER FLORES Ordering Physician: HERBER FLORES Date of Service: 11/29/23 Procedure(s): CA echo doppler complete Accession Number(s): [id number] cc: Shaikh Missy Ruiz; HERBER FLORES Patient Name: RICK HERNANDEZ MR#: [id number] : 1940 Exam Date: 11/29/2023 Ordering Doctor: [...] HERBER FLORES Signed By:11/29/231818 DD/ 17 TD/TT: Transport Manager: Generic External Data Provider [facility] Final Result documented in this encounter Visit Diagnoses Not on filedocumented in this encounter Care Teams Patient Svcs Mgr Relationship Specialty Start Date End Date Keith Folye MD PCP - General Family Medicine 10/02/23 Sarah Hemphill NP Nurse Practitioner Family Medicine 10/02/23 documented as of this encounter
--- OUTSIDE RECORDS SUMMARY | 2024-11-20 07:57 | XMS_ITS | Encounter Summary ---
Author Organization [facility] Address [address] [place] [address] Care Team Providers Care Shopping Inspector Name Role Phone Shaikh SAIGE Ruiz Primary Care Provider [phone] Keith Foley MD Primary Care Provider [phone] Sarah Hemphill MUSIC PUBLICIST Unavailable [phone] Encounter Details Date Type Department Care Team (Late st Contact Info) Description 05/22/2023 Orders Only [facility] [address] [place] [address] Leo Flores MD [address] [place] [address] Social History Tobacco Use Types [...] Anatomical Region Laterality Modality Radiographic Maia ging us Leo Flores MD IMG XR PROCEDURES Final Resu lt documented in this encounter Visit Diagnoses Not on filedocumented in this encounter Care Teams Shopping Inspector Relationship Specialty Start Date End Date Shaikh Ruiz MD PCP - General Internal Medicine 04/25/23 10/01/23 Keith Foley MD PCP - General Family Medicine 10/02/23 Sarah Hemphill NP Nurse Practitioner Family Medicine 10/02/23 documented as of this encounter
--- NOTE | 2024-11-20 08:00 | CA_ITS ---
Patient Name: RICK HERNANDEZ MR#: [id number] : 1940 Exam Date: 11/20/2024 Ordering Doctor: DR HERBER ALLEN M.D. ECHOCARDIOGRAM REPORT PROCEDURE: CA ECHO DOPPLER COMPLETE INDICATIONS: Pulmonary hypertension, atrial fibrillation, congestive heart failure, CABG COMPARISON: None. DESCRIPTION: COMPLETE ECHOCARDIOGRAM Real-time transthoracic echocardiography with 2D, M-mode, spectral and color flow Doppler performed. QUALITY: Technical quality was good. LEFT VENTRICLE: Normal chamber size. Borderline left ventricular hypertrophy. LV EF: Normal left ventricular ejection fraction, (>55%). DIASTOLIC: Not adequately assessed due to heart rhythm. ATRIAL SEPTUM: Visually appears intact. LEFT ATRIUM: Severe dilatation. RIGHT ATRIUM: Severe dilatation. RIGHT VENTRICLE: Mild dilatation. Decreased right ventricular systolic function. TRICUSPID VALVE: Normal mobility and thickness. No stenosis with mild to moderate regurgitation. Doppler studies reveal severely (>60) elevated right sided pressures. RVSP 70 mmHg MITRAL VALVE: Normal mobility and thickness. No evidence of mitral valve stenosis. Mild mitral annular calcification. Mild to moderate mitral regurgitation. AORTIC VALVE: Normal trileaflet appearance. Mildly calcified aortic valve. Mildly diminished mobility. Doppler velocity suggest mild aortic valve stenosis. DVI 0.5, TIN 1.9 cm2m Trivial aortic regurgitation. AORTIC ROOT: Normal diameter and appearance. PULMONIC VALVE: Normal thickness and mobility. No stenosis. Mild regurgitation. PERICARDIUM: No evidence of pericardial effusion. IVC: IVC is dilated (2.6 cm), does not fully collapse. PLEURA: CONCLUSION: - Normal left ventricular ejection fraction, (>55%). - LEFT ATRIUM: Severe dilatation. - RIGHT ATRIUM: Severe dilatation. - Mild dilatation. Decreased right ventricular systolic function. - Doppler studies reveal severely (>60) elevated right sided pressures. RVSP 70 mmHg - Mild to moderate mitral regurgitation. - Doppler velocity suggests mild aortic valve stenosis. - DVI 0.5, TIN 1.9 cm2m Trivial aortic regurgitation. Adult Echocardiography Procedure Report Left Ventricle LVEDD (3.7 - 5.6 cm): 4.00 cm LVESD (2.2 - 4.0 cm): 2.77 cm LVIVS thickness (0.6 - 1.2 cm): 1.01 cm LVPW thickness (0.5 - 1.0 cm): 1.14 cm e': E - e': LVOT Max Gradient: 2.59 mm[Hg], 2.00 mm[Hg] LVOT Area (cm2): 0.76 m/s Peak Velocity (LVOT): 0.80 m/s, 0.71 m/s Mean Velocity (LVOT): 0.51 m/s LVOT Diameter 1.76 cm Left Ventricular Ejection Fraction: 87.82 % Left Atrium LA Volume Index (2D A2C): 74.04 ml/m2 Left Atrium Systolic Dimension: 5.52 cm Mitral Valve MV E to A Ratio: MV Max Gradient: MV Mean Gradient: Mitral Valve A-Wave Peak Velocity: Mitral Valve E-Wave Peak Velocity: 1.18 m/s Cardiovascular Orifice Area: Right Ventricle RV Internal Diastolic Dimension: Aorta AO Root Diam: 2.92 cm Ascending Ao Diam: Aortic Valve AoV Area (Peak Robin): 1.44 cm2, 1.49 cm2, 1.21 cm2 AoV Area (VTI): 1.88 cm2, 2.05 cm2, 1.82 cm2 Deceleration Hitchcock: Pressure Half-Time: Peak Velocity(Antegrade Flow): 1.31 m/s, 1.42 m/s, 1.15 m/s, 1.23 m/s Peak Gradient(Antegrade Flow): 6.84 mm[Hg], 8.01 mm[Hg], 5.25 mm[Hg], 6.03 mm[Hg] Mean Velocity(Antegrade Flow): 0.83 m/s, 0.80 m/s, 0.77 m/s, 0.77 m/s Mean Gradient(Antegrade Flow): 3.35 mm[Hg], 3.20 mm[Hg], 2.85 mm[Hg], 2.88 mm[Hg] Velocity Time Integral: 22.14 cm, 22.72 cm, 22.46 cm, 24.78 cm Tricuspid Valve Peak Velocity (Regurgitant Flow): 3.50 m/s, 3.08 m/s, 3.56 m/s, 3.42 m/s Peak Velocity: Pulmonic Valve Mean Gradient: Mean Velocity: Peak Velocity: 0.90 m/s Peak Gradient: 3.04 mm[Hg], 2.82 mm[Hg], 3.92 mm[Hg] Right Atrium Right Atrium Systolic Pressure: 183.03 ml, 183.03 ml Dictated by: Dwight Hyman MD on 11/20/2024 at 11:35 Approved by: Dwight Hyman MD on 11/20/2024 at 11:44
== END 2024-11-20 07:55 | disposition home or self-care (01) ==
LOC: CARD 07:54
PROVIDERS: PCP Nurse Practitioner; Visit Provider Internal Medicine Interventional Cardiology
DX: I36.1 Nonrheumatic tricuspid (valve) insufficiency (principal); I50.32 Chronic diastolic (congestive) heart failure; I27.20 Pulmonary hypertension, unspecified
CPT/HCPCS: 93306

== ENCOUNTER 2024-11-20 08:47 | Outpatient (OUT) | payer MEDICARE, OTHER, SELFPAY ==
--- OUTSIDE RECORDS SUMMARY | 2024-11-20 08:55 | XMS_ITS | Encounter Summary ---
Author Organization [facility] Address [address] [place] [address] Care Team Providers Care Business Systems Analyst Name Role Phone Shaikh SAIGE Ruiz Primary Care Provider [phone] Keith Foley MD Primary Care Provider [phone] Sarah Hemphill RETAIL CLIENT SOLUTIONS CONSULTANT Unavailable [phone] Encounter Details Date Type Department Care Team (Late st Contact Info) Description 05/22/2023 Orders Only [facility] [address] [place] [address] Leo Flores MD [address] [place] [address] Social History Tobacco Use Types [...] on filedocumented in this encounter Care Teams Business Systems Analyst Relationship Specialty Start Date End Date Shaikh Ruiz MD PCP - General Internal Medicine 04/25/23 10/01/23 Keith Foley MD PCP - General Family Medicine 10/02/23 Sarah Hemphill NP Nurse Practitioner Family Medicine 10/02/23 documented as of this encounter
--- OUTSIDE RECORDS SUMMARY | 2024-11-20 08:55 | XMS_ITS | Encounter Summary ---
Author Organization [facility] Address [address] [place] [address] Care Team Providers Care Photographic Process Attendant Name Role Phone Shaikh SAIGE Ruiz Primary Care Provider [phone] Keith Foley MD Primary Care Provider [phone] Sarah Hemphill RESILIENT TILE INSTALLER Unavailable [phone] Reason for Visit * Reason Comments Med Refill Encounter Details Date Type Department Care Team (Latest Contact Info) Description 05/09/2023 Refill [facility] Shaikh Ruiz MD [address] [place] [address] Hypokalemia Social History Tobacco Use Types Packs/Day [...] Hypopotassemia documented in this encounter Care Teams Photographic Process Attendant Relationship Specialty Start Date End Date Shaikh Ruiz MD PCP - General Internal Medicine 04/25/23 10/01/23 Keith Foley MD PCP - General Family Medicine 10/02/23 Sarah Hemphill NP Nurse Practitioner Family Medicine 10/02/23 documented as of this encounter
--- OUTSIDE RECORDS SUMMARY | 2024-11-20 08:55 | XMS_ITS | Clinical Summary ---
Author Organization [facility] Address [address] [place] [address] Care Team Providers Care Visual Lead Name Role Phone Allyssa Baez MD Primary Care Provider [phone] Allergies Active Allergy Reactions Criticality Noted Date [...] inhaler Active ergocalciferol (Vitamin D-2) 1.25 MG (86352 Units) capsule Vitamin D2 1,250 mcg (50,000 unit) capsule Active spironolactone (Aldactone) 25 mg tabletIndication s:Chronic diastolic congestive heart failure (CMS/HCC),Pulmon mila hypertension (CMS/HCC) Take 0.5 tablets (12.5 mg) by mouth in the morning. 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 Farmer Cash Grain of CKD stage 3; Has been trending downwards for quite sometime. Likely r/t HF. Pt states she was unaware of this and has never been referred to or seen nephrology in the past. Referral sent to Nephrology in [place]. Consider adding SLGT-2 today. Will discuss with Migratory Farm Hand first. Pulmonary hypertension 06/14/2023 CKD (chronic kidney [...] Assessment & Plan (02/03/2022 7:27 AM EST): [id number]= 4 -rate controlled on metoprolol 100mg BID -tolerating xarelto 15mg, continue Chronic diastolic congestive heart failure 06/18 Assessment & Plan (02/03/2022 7:35 AM EST): Diastolic Heart failure -[facility] II today -Continue GDMT- metoprolol, lipitor, bumex, [...] 6 weeks Coronary artery disease invo lving jackson coronary artery of jackson heart without angina pectoris 06/18/2018 Assessment & Plan (02/01/2022 3:27 PM EST): Coronary artery disease is continue risk factor modifications- heart healthy diet, regular exercise as tolerated and continue all medications. Encounters Date Type Department Care Team Description 10/26/[address] [address] Radha Lord MA Acute combined systolic and diastolic heart failure (CMS/HCC) 10/08/2024 Refill [place] [address] [place] [address] Radha Lord MA Permanent atrial fibrillation (CMS/HCC) 09/07/2024 3:15 PM EDT Office Visit [address] [place] [address] Leo Flores MD Chronic diastolic congestive heart failure (CMS/HCC) (Primary Dx); Nonrheumatic tricuspid valve regurgitation; Pulmonary hypertension (CMS/HCC); Nonrheumatic mitral valve regurgitation; Permanent atrial fibrillation (CMS/HCC); Coronary artery disease involving jackson coronary artery of jackson heart without angina pectoris; History of coronary artery bypass surgery; Primary hypertension; Stage 3b chronic kidney disease (CMS/HCC) 08/20/2024 Refill [facility] [address] [place] [address] Radha Lord MA Chronic diastolic congestive heart [...] Description 11/23/2024 2:00 PM EDT Office Visit [facility] [address] [place] [address] Leo Flores MD [address] [facility] [address] [facility] [place] [address] Health Maintenance Due Date Last Done Comments [...] Payer (Ef fective 2005-Present) Name:Jenifer Samuel Member ID:[id number] Relation to Subscriber:Self Name:Jenifer Samuel Subscriber ID:[id number] Payer ID:[id number] Group ID:Not on file Type:Medicare Address: [facility] [address] Care Teams Visual Lead Relationship Specialty Start Date End Date Allyssa Baez MD [address] [place] [address] PCP - General Nurse Practitioner 09/07/24
--- OUTSIDE RECORDS SUMMARY | 2024-11-20 08:55 | XMS_ITS | Encounter Summary ---
Author Organization [facility] Address [address] [place] [address] Care Team Providers Care Supervisor Central Supply Name Role Phone Shaikh SAIGE Ruiz Primary Care Provider [phone] Keith Foley MD Primary Care Provider [phone] Sarah Hemphill SILVER SOLDERER Unavailable [phone] Encounter Details Date Type Department Care Team (Late st Contact Info) Description 06/03/2023 Orders Only [facility] [address] [place] [address] Leo Flores MD [address] [place] [address] Social History Tobacco Use Types [...] on filedocumented in this encounter Care Teams Supervisor Central Supply Relationship Specialty Start Date End Date Shaikh Ruiz MD PCP - General Internal Medicine 04/25/23 10/01/23 Keith Foley MD PCP - General Family Medicine 10/02/23 Sarah Hemphill NP Nurse Practitioner Family Medicine 10/02/23 documented as of this encounter
--- OUTSIDE RECORDS SUMMARY | 2024-11-20 08:55 | XMS_ITS | Encounter Summary ---
Author Organization [facility] Address [address] [place] [address] Care Team Providers Care Hr Leader Name Role Phone Shaikh SAIGE Ruiz Primary Care Provider [phone] Keith Foley MD Primary Care Provider [phone] Sarah Hemphill UNDRAPED ARTIST MODEL Unavailable [phone] Encounter Details Date Type Department Care Team [...] EDT Narrative 05/22/2023 2:21 PM EDT The [address] [address] Cardiology Report Signed Patient: RICK HERNANDEZ MR#: [id number] : 1940 Acct:[id number] Age/Sex: 83 / F ADM Date: 05/22/23 Loc: DC Attending Dr: HERBER ALLEN Ordering Physician: HERBER ALLEN Date of Service: 05/22/23 Procedure(s): CA echo doppler complete Accession Number(s): [id number] cc: Shaikh Missy Ruiz; HERBER ALLEN Patient Name: RICK HERNANDEZ MR#: [id number] : 1940 Exam Date: 05/22/2023 Ordering Doctor: [...] Signed By: 05/22/23 1421 DD/ 1420 TD/TT: Endocrinology Specialist: Procedure Note Radiology, Radiologist, - 05/22/2023 [place] [address] Cardiology Report Signed Patient: RICK HERNANDEZ SMR#: [id number] : 9Acct:[id number] Age/Sex: 83 / FADM Date: 05/22/23 Loc: DC Attending Dr: HERBER ALLEN Ordering Physician: HERBER ALLEN Date of Service: 05/22/23 Procedure(s): CA echo doppler complete Accession Number(s): [id number] cc: Shaikh Missy Ruiz; HERBER ALLEN Patient Name: RICK HERNANDEZ MR#: [id number] : 1940 Exam Date: 05/22/2023 Ordering Doctor: [...] M.D. Signed By:05/22/23 1421 DD/ 1420 TD/TT: Endocrinology Specialist: us Generic External Data Provider [facility] Final Result documented in this encounter Visit Diagnoses Not on filedocumented in this encounter Care Teams Hr Leader Relationship Specialty Start Date End Date Shaikh Ruiz MD PCP - General Internal Medicine 04/25/23 10/01/23 Keith Foley MD PCP - General Family Medicine 10/02/23 Sarah Hemphill NP Nurse Practitioner Family Medicine 10/02/23 documented as of this encounter
--- OUTSIDE RECORDS SUMMARY | 2024-11-20 08:55 | XMS_ITS | Encounter Summary ---
Author Organization [facility] Address [address] [place] [address] Care Team Providers Care In Service Education Teacher Name Role Phone Keith Foley MD Primary Care Provider [phone] Sarah Hemphill SCHOOL SERVICES OFFICER Unavailable [phone] Encounter Details Date Type Department Care Team [...] EDT Narrative 11/29/2023 6:19 PM EDT The [address] [address] Cardiology Report Signed Patient: RICK HERNANDEZ MR#: [id number] : 1940 Acct:[id number] Age/Sex: 83 / F ADM Date: 11/29/23 Loc: CARD Attending Dr: HERBER FLORES Ordering Physician: HERBER FLORES Date of Service: 11/29/23 Procedure(s): CA echo doppler complete Accession Number(s): [id number] cc: Shaikh Msisy Ruiz; HERBER FLORES Patient Name: RICK HERNANDEZ MR#: [id number] : 1940 Exam Date: 11/29/2023 Ordering Doctor: [...] Signed By: 10/01/11 1819 DD/ 17 TD/TT: Property Specialist: Procedure Note Radiology, Radiologist, - 12/02/[address] [address] Cardiology Report Signed Patient: RICK HERNANDEZ SMR#: [id number] : 1940cct:[id number] Age/Sex: 83 / FADM Date: 11/29/23 Loc: CARD Attending Dr: HERBER FLORES Ordering Physician: HERBER FLORES Date of Service: 11/29/23 Procedure(s): CA echo doppler complete Accession Number(s): [id number] cc: Shaikh Missy Ruiz; HERBER FLORES Patient Name: RICK HERNANDEZ MR#: [id number] : 1940 Exam Date: 11/29/2023 Ordering Doctor: [...] HERBER FLORES Signed By:11/29/231818 DD/ 17 TD/TT: Property Specialist: Generic External Data Provider [facility] Final Result documented in this encounter Visit Diagnoses Not on filedocumented in this encounter Care Teams In Service Education Teacher Relationship Specialty Start Date End Date Keith Foley MD PCP - General Family Medicine 10/02/23 Sarah Hemphill NP Nurse Practitioner Family Medicine 10/02/23 documented as of this encounter
--- OUTSIDE RECORDS SUMMARY | 2024-11-20 08:55 | XMS_ITS | Encounter Summary ---
Author Organization [facility] Address [address] [place] [address] Care Team Providers Care Critical Care Clinical Nurse Specialist Name Role Phone Shaikh SAIGE Ruiz Primary Care Provider [phone] Keith Foley MD Primary Care Provider [phone] Sarah Hemphill UPPER INSPECTOR Unavailable [phone] Encounter Details Date Type Department Care Team [...] EDT Narrative 05/23/2023 2:05 PM EDT The [address] [address] Nuclear Medicine Report Signed Patient: RICK HERNANDEZ MR#: [id number] : 1940 Acct:[id number] Age/Sex: 83 / F ADM Date: 05/22/23 Loc: [place] Attending Dr: HERBER ALLEN Ordering Physician: HERBER ALLEN Date of Service: 05/22/23 Procedure(s): NM carlitos perf SPECT rest str Accession Number(s): [id number] cc: Shaikh Missy Ruiz; HERBER ALLEN Patient Name: RICK HERNANDEZ MR#: [id number] : 1940 Exam Date: 05/22/2023 Ordering Doctor: [...] Signed By: 05/23/23 1405 DD/ 1404 TD/TT: Cheese Production Supervisor: Procedure Note Radiology, Radiologist, - 05/23/[address] [address] Nuclear Medicine Report Signed Patient: RICK HERNANDEZ SMR#: [id number] : 1940cct:[id number] Age/Sex: 83 / FADM Date: 05/22/23 Loc: [place] Attending Dr: HERBER ALLEN Ordering Physician: HERBER ALLEN Date of Service: 05/22/23 Procedure(s): NM carlitos perf SPECT rest str Accession Number(s): [id number] cc: Shaikh Missy Ruiz; HERBER ALLEN Patient Name: RICK HERNANDEZ MR#: [id number] : 1940 Exam Date: 05/22/2023 Ordering Doctor: [...] M.D. Signed By:05/23/23 1405 DD/ 1404 TD/TT: Cheese Production Supervisor: us Generic External Data Provider [facility] Final Result documented in this encounter Visit Diagnoses Not on filedocumented in this encounter Care Teams Critical Care Clinical Nurse Specialist Relationship Specialty Start Date End Date Shaikh Ruiz MD PCP - General Internal Medicine 04/25/23 10/01/23 Keith Foley MD PCP - General Family Medicine 10/02/23 Sarah Hemphill NP Nurse Practitioner Family Medicine 10/02/23 documented as of this encounter
--- OUTSIDE RECORDS SUMMARY | 2024-11-20 08:55 | XMS_ITS | Clinical Summary ---
Author Organization [facility] Address [address] [place] [address] Care Team Providers Care Solicitor Patent Name Role Phone Keith Foley MD Primary Care Provider [phone] Sarah Hemphill BAG LOADER Unavailable [phone] Allergies Active Allergy Reactions Criticality Noted Date [...] Date Diagnosed Date Encounter for subsequent [facility] wellness visit (AWV) in Medicare patient 07/23/2024 [...] (01/09/2024 2:53 PM EST): eGFR is 32. 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 Likely r/t HF. Pt states she was unaware of this and has never been referred to or seen nephrology in the past. Referral sent to Nephrology in [place]. Pt did not follow up yet. Assessment & Plan (10/14/2023 9:47 AM EDT): eGFR is 34. 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 Likely r/t HF. Pt states she was unaware of this and has never been referred to or seen nephrology in the past. Referral sent to Nephrology in [place]. Consider adding SLGT-2 today. Will discuss with Institute Director first. Acute on chronic diastolic HF (heart [...] Plan (07/23/2024 6:36 AM EDT): Managed by [facility] Cardiology Current meds: imdur, b dayna, diuretics Assessment & Plan (05/26/2024 6:15 AM EDT): Managed by [facility] Cardiology Current meds: imdur, b dayna, [...] & Plan (05/26/2024 6:11 AM EDT): Per [facility] Cardiology mgmt Pulmonary HTN 02/01/2022 Assessment & Plan (05/26/2024 6:11 AM EDT): Findings confirmed through heart cath Chronic atrial fibrillation, unspecified 019 Assessment & Plan (07/23/2024 6:36 AM EDT): Current meds: xarelto, b dayna [facility] Cardiology Assessment & Plan (05/26/2024 6:10 AM EDT): Current meds: xarelto, b dayna [facility] Cardiology Assessment & Plan (04/25/2023 11:59 AM EST): Chronic Afib, persistent, HR remains controlled On Xarelto for AC Previous hx of failed cardioversion. Patient has not seen cardiology for over 2 years now. Will refer to [facility] cardiology. Hypertensive heart disease with heart failure Assessment & Plan (10/14/2023 9:44 AM EDT): Follows with Cardiology; [facility]. 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 Pt states she was unaware of this and has never been referred to or seen nephrology in the past. Referral sent to Nephrology in [place]. Consider adding SLGT-2 today. Will discuss with Institute Director first. Assessment & Plan (04/25/2023 12:03 PM EST): Hx with HFpEF. Patient has chronic diastolic HF. She is SOB, worse on exertion, reports fatigue, low energy Labs ordered to r/o Anemia, electrolyte abnormalities. Will also get an ECHO to assess cardiac structure. Coronary artery disease invo [place]ving [place] coronary artery of [place] heart without angina pectoris 06/18/2018 Overview (04/25/2023): Last Assessment & Plan: Coronary artery disease is continue risk factor modifications- heart healthy diet, regular exercise as tolerated and continue all medications. Assessment & Plan (07/23/2024 6:36 AM EDT): Current meds: statin, imdur, b dayna [facility] Cardiology Assessment & Plan (05/26/2024 6:10 AM EDT): Current meds: statin, imdur, b dayna [facility] Cardiology Assessment & Plan (04/25/2023 12:01 [...] 0, 10/27/2018, 10/13/[address] [place] [address] MEDICARE [facility] Care Teams Solicitor Patent Relationship Specialty Start Date End Date Keith Foley MD PCP - General Family Medicine 10/02/23 Sarah Hemphill NP Nurse Practitioner Family Medicine 10/02/23
--- OUTSIDE RECORDS SUMMARY | 2024-11-20 09:01 | XMS_ITS | CCD ---
Author Organization [facility] [employer]iniSyks Care Team Providers Care Radio Antenna Installer Name Role Phone EDU ODONNELL Referring Unavailable HOUSE, EDU Primary Care Unavailable ALLY, HANI Admitting Unavailable AJ, FLORENTINO Attending Unavailable [place] Procedure Practitioner Unavailab le UNKNOWN, PROVIDER Surgeon Unavailable [place] Procedure Practitioner Unavailab le NAWRSHERRY PERALTA T Surgeon Unavailable [place] Procedure Practitioner Unavailab le AJ, FLORENTINO Surgeon Unavailable LAKSHMI MARSHALLKOLB Admitting Unavailable BLAS, EDU Primary Care Unavailable SELF, REFERRED Referring Unavailable MEGHAN HEAD Attending Unava ilable [place] Procedure Practitioner Unavailab le KEVON COLON Surgeon [...] Consulting Unavailable MISC, DR PROCTOR Admitting Unavailable TATAMY, DR SALAMANCA Primary Care Unavailable Og MOULTON, Keith Primary Care Provider [phone] Kanchan LAMINATING PRESS OPERATOR, Shell Unavailable Kanchan LAMINATING PRESS OPERATOR, Shell Unavailable ALLYSSA BAEZ Attending Unavailable ALLYSSA BAEZ Attending Unavailable SHELL HEMPHILL Attending UnavailSHELL Lester Attending UnavailHERBER Law Attending Unavailable BIRDIE CHACON Attending Unavailable HERBER FLORES Attending Unavailable HERBER FLORES Attending Unavailable Joi Guajardo DO Primary Care Provider [phone] Joi Guajardo DO Attending Provider Allergies Allergy Classification Reported Allergen(s) Allergy Type Date of Onset Reaction(s) Facility (3 sources) Furosemide Drug Allergy 9 [facility] Repository (3 sources) Penicillins; Translations: [PENICILLINS] Drug allergy (disorder) 9 Rash [facility] Repository (4 sources) Sulfonamides (Antibiotic); Translations: [SULFA (SULFONAMIDE ANTIBIOTICS)] Drug allergy (disorder) 9 Rash [facility] Repository (1 source) Penicillin Drug Allergy [facility] Repository (20 sources) Penicillin G Drug Allergy 9 [facility] Healthcare Work Phone: (20 sources) Sulfonamides (Antibiotic) Drug Intolerance 9 [facility] Healthcare (1 source) Furosemide; Translations: [FUROSEMIDE] Drug Allergy 2 [facility] Repository Medications Current Medications Medication Drug Class(es) Dates Sig (Normalized) Sig (Original) [id number] 200 actuat albuterol 0.09 mg/actuat metered dose [...] disease (20 sources) Atherosclerotic heart disease of [place] coronary artery without angina pectoris; Translations: [Coronary [...] Range Facility Office Visiton 09-07-2024 Follow-up visit [id number] Jenifer Hernandez 1940 F Date Provider Department Center 09/07/2024 HERBER BERMUDEZ [facility] Hos Family History Problem Relation Age of Onset Other Father Stroke Brother Family Status - Relation Status Age at Father Brother Level of Service:51829 [place] OFFICE/OUTPATIENT ESTABLISHED MOD MDM 30 MIN Normal [facility] CA ECHO DOPPLER COMPLETEon 0 08-19-2024 The [facility] [address] [place] [address] Cardiology Report Signed Patient: JENIFER HERNANDEZ MR#: [id number] : 1940 Acct:[id number] Age/Sex: 84 / F ADM Date: 08/19/24 Loc: CARD Attending Dr: HERBER FLORES Ordering Physician: HERBER FLORES Date of Service: 08/19/24 Procedure(s): CA echo doppler complete Accession Number(s): [id number] cc: Allyssa Baez LAMINATING PRESS OPERATOR; HERBER FLORES ECHOCARDIOGRAM REPORT PROCEDURE: CA ECHO [...] Area (VTI): 1.51 cm2, 1.54 cm2 Deceleration Mcduffie: 1.96 m/s2 Pressure Half-Time: 465.85 ms Peak Velocity(Antegrade Flow): 1.54 m/s, 1.69 m/s, 1.63 m/s, 1.69 m/s Peak Gradient(Antegrade Flow): 9.45 mm[Hg], 11.39 mm[Hg], 10.67 mm[Hg], 11.39 mm[Hg] Mean Velocity(Antegrade Flow): 1.05 m/s, 1.23 m/s, 1.19 m/s, 1.24 m/s Mean Gradient(Antegrade Flow): 5.16 mm[Hg], 6.72 mm[Hg], 6.24 mm[Hg], 6.8 (more content not included)... [facility] Radiology, Radiologi MD mario - 08/20/2024 [place] [address] Cardiology Report Signed Patient: JENIFER HERNANDEZ MR#: [id number] : 1940 Acct:[id number] Age/Sex: 84 / F ADM Date: 08/19/24 Loc: CARD Attending Dr: HERBER FLORES Ordering Physician: HERBER FLORES Date of Service: 08/19/24 Procedure(s): CA echo doppler complete Accession Number(s): [id number] cc: Allyssa Baez LAMINATING PRESS OPERATOR; HERBER FLORES ECHOCARDIOGRAM REPORT PROCEDURE: CA ECHO [...] Area (VTI): 1.51 cm2, 1.54 cm2 Deceleration Mcduffie: 1.96 m/s2 Pressure Half-Time: 465.85 ms Peak [...] 08/19/2024 at 18:33 Continued Report - Page [address] [address] Dictated By: Birdie Chacon M.D. Signed By: 08/19/241834 DD/ 32 TD/TT: Director Of Midwifery/Staff Midwife: [facility] Radiology Study observation (narrative) [facility] CA ECHO DOPPLER COMPLETEOrde red By: Radiologist Radiology on 08-19-2024 [facility] Work Phone: HbA1c (Bld) [Mass fraction]o n 05-26-2024 Interpretation and review of laboratory results Abnormal [facility] - Hematology and Cell countson 05-26-2024 HbA1c (Bld) [Mass fraction] 6.30 % [facility] 36on 05-15-2024 36 Regarding lab result s from 05/13/2024: MD Radha Castro MA Her blood testing is okay. Continue the same treatment. Sent fax to Allyssa Baez's office making them aware Dr. Flores does not want to adjust patient's diuretics at this time. Normal [facility] ALL CBC WITH AUTO DIFFon BASOPHILS ABSOLUTE AUTO 0 [facility] Basophils/100 WBC (Bld) 0.3 % 0.2 - 2.0 % [facility] Eosinophils/100 WBC (Bld) 2 % 0.9 - 7.0 % [facility] Erythrocyte distribution width (RBC) [Ratio] 13.8 % 11.0 - 15.0 % [facility] Hematocrit (Bld) [Volume fraction] 38 % 36.0 - 48.0 % [facility] Hemoglobin (Bld) [Mass/Vol] 12.7 g/dL 12.0 - 16.0 g/dL [facility] IMMATURE GRANULOCYTES ABS AUTO 0.01 [facility] Immature granulocytes/100 WBC (Bld) 0.2 % 0.0 - 0.5 % [facility] Interpretation and review of laboratory results Abnormal [facility] LYMPHOCYTES ABSOLUTE AUTO 1.5 [facility] Lymphocytes/100 WBC (Bld) 25.7 % 20.5 - 60.0 % [facility] MCH (RBC) [Entitic mass] 33.3 pg 26.7 - 34.0 pg [facility] MCHC (RBC) [Mass/Vol] 33.4 g/dL 29.9 - 35.2 g/dL [facility] MCV (RBC) [Entitic vol] 99.7 fL High 81.0 - 99.0 fL [facility] MONOCYTES ABSOLUTE AUTO 1 High [facility] Monocytes/100 WBC (Bld) 16 % High 1.7 - 12.0 % [facility] NEUTROPHILS ABSOLUTE AUTO 3.4 [facility] Neutrophils/100 WBC (Bld) 55.8 % 43.0 - 75.0 % [facility] Platelet mean volume (Bld) [Entitic vol] 9 fL Low 9.5 - 13.5 fL [facility] TB EO # 0.1 [facility] TB PLT [address] [facility] RBC 3.[address] [facility] WBC 6 [facility] ALL BASIC METABOLIC PANELon 02-04-2024 Anion gap [Moles/Vol] 9.8 mmol/L [facility] Calcium [Mass/Vol] 9.4 mg/dL 8.5 - 10. 1 mg/dL [facility] Chloride [Moles/Vol] 102 mmol/L 98 - 10 7 mmol/L [facility] CO2 [Moles/Vol] 34.9 mmol/L High 21.0 - 32.0 mmol/L [facility] Creatinine [Mass/Vol] 1.76 mg/dL High 0.55 - 1.02 mg/dL [facility] GFR/1.73 sq M.predicted CKD-EPI (S/P/Bld) [Vol rate/Area] 33 Low >=60 mL/min/1.73m 2 [facility] Glucose [Mass/Vol] 148 mg/dL High 74 - 106 mg/dL [facility] Interpretation and review of laboratory results Abnormal [facility] Potassium [Moles/Vol] 3.7 mmol/L 3.5 - 5.1 mmol/L [facility] Sodium [Moles/Vol] 143 mmol/L 136 - 145 mmol/L [facility] EGFR-NON AF UZBEK 27 Low >=60 mL/min/1.73m 2 [facility] Urea nitrogen [Mass/Vol] 36 mg/dL High 7.0 - 18.0 mg/dL [facility] Urea nitrogen/Creatinine [Mass ratio] 20.5 mg/mg [facility] Office Visiton 01-13-2024 Follow-up visit [id number] Jenifer Hernandez 1940 F Date Provider Department Center 01/13/2024 HERBER BERMUDEZ [facility] Family History Problem Relation Age of Onset Other Father Stroke Brother Family Status - Relation Status Age at Father Brother Level of Service:88275 [place] OFFICE/OUTPATIENT ESTABLISHED MOD MDM 30 MIN Normal [facility] ALL BASIC METABOLIC PANELon 12-26-2023 Anion gap [Moles/Vol] 10.9 mmol/L [facility] Calcium [Mass/Vol] 9.6 mg/dL 8.5 - 10. 1 mg/dL [facility] Chloride [Moles/Vol] 102 mmol/L 98 - 10 7 mmol/L [facility] CO2 [Moles/Vol] 33.4 mmol/L High 21.0 - 32.0 mmol/L [facility] Creatinine [Mass/Vol] 1.54 mg/dL High 0.55 - 1.02 mg/dL [facility] GFR/1.73 sq M.predicted CKD-EPI (S/P/Bld) [Vol rate/Area] 39 Low >=60 mL/min/1.73m 2 [facility] Glucose [Mass/Vol] 99 mg/dL 74 - 106 mg/dL [facility] Interpretation and review of laboratory results Abnormal [facility] Potassium [Moles/Vol] 4.3 mmol/L 3.5 - 5.1 mmol/L [facility] Sodium [Moles/Vol] 142 mmol/L 136 - 145 mmol/L [facility] TBH EGFR-NON AF UZBEK 32 Low >=60 mL/min/1.73m 2 [facility] Urea nitrogen [Mass/Vol] 34 mg/dL High 7.0 - 18.0 mg/dL [facility] Urea nitrogen/Creatinine [Mass ratio] 22.1 mg/mg [facility] ALL BASIC METABOLIC PANELon 12-18-2023 Anion gap [Moles/Vol] 13.5 mmol/L [facility] Calcium [Mass/Vol] 9.2 mg/dL 8.5 - 10. 1 mg/dL [facility] Chloride [Moles/Vol] 102 mmol/L 98 - 10 7 mmol/L [facility] CO2 [Moles/Vol] 31.4 mmol/L 21.0 - 32.0 mmol/L [facility] Creatinine [Mass/Vol] 1.68 mg/dL High 0.55 - 1.02 mg/dL [facility] GFR/1.73 sq M.predicted CKD-EPI (S/P/Bld) [Vol rate/Area] 35 Low >=60 mL/min/1.73m 2 [facility] Glucose [Mass/Vol] 137 mg/dL High 74 - 106 mg/dL [facility] Interpretation and review of laboratory results Abnormal [facility] Potassium [Moles/Vol] 3.9 mmol/L 3.5 - 5.1 mmol/L [facility] Sodium [Moles/Vol] 143 mmol/L 136 - 145 mmol/L [facility] TBH EGFR-NON AF UZBEK 29 Low >=60 mL/min/1.73m 2 [facility] Urea nitrogen [Mass/Vol] 35 mg/dL High 7.0 - 18.0 mg/dL [facility] Urea nitrogen/Creatinine [Mass ratio] 20.8 mg/mg [facility] Office Visiton 12-18-2023 Follow-up visit [id number] HernandezJenifer S 1940 F Date Provider Department Center 12/18/2023 [id number] CHACON LEIGHA [facility] Family History Problem Relation Age of Onset Other Father Stroke Brother Family Status - Relation Status Age at Father Brother Level of Service:58337 [place] OFFICE/OUTPATIENT ESTABLISHED MOD MDM 30 MIN Reason for Visit and Comments: Atrial Fibrillation [80] - Denies palpitations, syncope, and bleeding on Xarelto. Congestive Heart Failure [127] - Dr. Flores reduced Bumex at last visit in Sep. Had echo 2 weeks ago and needs more diuretic per Dr. Flores. She has gained 6# since last visit. Coronary Artery Disease [187] Hypertension [761824] Valve Disorder [3372] Dizziness [609447] - Denies syncope. Edema [[id number]] [facility] 36on 12-12-2023 36 Spoke with patient a nd got her in to see Dr. Chacon on 12/17. I asked her to have BMP prior to apt. Order faxed to [facility]. [facility] 36on 12-09-2023 36 Regarding echo resul t from 11/29/2023: MD Radha Castro MA She needs more diuretic, is she coming for a follow up? She is not scheduled to see you until 01/12. You are completely booked until then. Would you like her to see an LAMINATING PRESS OPERATOR or Dr. Chacon in the meantime? [facility] ALL BASIC METABOLIC PANELon 10-28-2023 Anion gap [Moles/Vol] 8.1 mmol/L [facility] Calcium [Mass/Vol] 9.1 mg/dL 8.5 - 10. 1 mg/dL [facility] Chloride [Moles/Vol] 100 mmol/L 98 - 10 7 mmol/L [facility] CO2 [Moles/Vol] 33.6 mmol/L High 21.0 - 32.0 mmol/L [facility] Creatinine [Mass/Vol] 1.59 mg/dL High 0.55 - 1.02 mg/dL [facility] GFR/1.73 sq M.predicted CKD-EPI (S/P/Bld) [Vol rate/Area] 37 Low 60 - PINF [facility] Glucose [Mass/Vol] 93 mg/dL 74 - 106 mg/dL [facility] Interpretation and review of laboratory results Abnormal [facility] Potassium [Moles/Vol] 3.7 mmol/L 3.5 - 5.1 mmol/L [facility] Sodium [Moles/Vol] 138 mmol/L 136 - 145 mmol/L [facility] EGFR-NON AF UZBEK 31 Low 60 - PINF [facility] Urea nitrogen [Mass/Vol] 42.0 mg/dL High 7.0 - 18.0 mg/dL [facility] Urea nitrogen/Creatinine [Mass ratio] 26.4 mg/mg [facility] Healthcare Office Visiton 09-25-2023 Follow-up visit [id number] Jenifer Hernandez 1940 F Date Provider Department Center 09/25/2023 367-HERBER FLORES LEIGHA [facility] Family History Problem Relation Age of Onset Other Father Stroke Brother Family Status - Relation Status Age at Father Brother Level of Service:96056 [place] OFFICE/OUTPATIENT ESTABLISHED MOD MDM 30 MIN Normal [facility] ANESon 09-10-2023 ANES ---- -------- Attestation [...] cath - pc approved with ADWOA Location: [facility] 3 / [facility] (Cath) Providers: Herber [...] attending. Additional Equipment Requests Normal [facility] HPon 09-10-2023 HP History Of Present [...] 3 09/09/2023 ergocalciferol (Vitamin D-2) 1.25 MG (25335 Units) capsule Vitamin D2 1,250 mcg (50,000 [...] (more content not included)... Normal [facility] HP ---- -------- Attestation signed by [...] a past medical history of Atrial fibrillation ([facility]), Coronary artery disease, and Heart valve [...] 3 09/09/2023 ergocalciferol (Vitamin D-2) 1.25 MG (53945 Units) capsule Vitamin D2 1,250 mcg (50,000 [...] pulmonic regurgitation. Assessment/Plan Coronary artery disease of [place] artery of [place] heart with stable angina pectoris ([facility]/HCC) Chronic diastolic congestive heart failure (CMS/HCC) Shortness of breath Permanent atrial fibrillation ([facility]/HCC) Stage 3b chronic kidney disease ([facility]/HCC) Pulmonary hypertension (CMS/HCC) Severe TR Moderate MR Mild AR - Plan: RHC and ADWOA Primary hypertension - continue medical therapy History of coronary artery bypass surgery s/p CABG - continue medical therapy [facility] NURSNOTEon 09-10-2023 NURSNOTE RN educated pt on d/ c instructions. RN encouraged pt to voice any questions or concerns. Pt verbalizes no questions or concerns at this time. [facility] HARPREETE Spoke with Dr. Brii macias and john to discharge pt at 1600. [facility] PROF CHEM 8 (BAS METB)on Anion gap [Moles/Vol] 13.7 mmol/L Normal [facility] Comment on above: Performed By: #### B MP #### [facility] [address] [place] [address] Dr. Vega Sorensen Calcium [Mass/Vol] 9.2 mg/dL Normal 8.5-10.1 [facility] Comment on above: Performed By: #### B MP #### [facility] [address] [address] [address] Vega Sorensen Chloride [Moles/Vol] 100 mmol/L Normal 98-[address] [facility] Comment on above: Performed By: #### B MP #### [facility] [address] [address] [address] Vega Sorensen CO2 [Moles/Vol] 30.2 mmol/L Normal 21.0-32.0 [facility] Comment on above: Performed By: #### B MP #### [facility] [address] [address] [address] Vega Sorensen Creatinine [Mass/Vol] 1.69 mg/dL Critically high 0.55-1.[address] [facility] Comment on above: Performed By: #### B MP #### [facility] [address] [address] [address] Vega Sorensen EGFR-AF UZBEK 35 mL/min/1.73m2 Critically low >=[address] [facility] Comment on above: Performed By: #### B MP #### [facility] [address] [address] [address] Vega Sorensen EGFR-NON AF UZBEK 29 mL/min/1.73m2 Critically low >=[address] [facility] Comment on above: Performed By: #### B MP #### [facility] [address] [address] [address] Vega Sorensen Glucose [Mass/Vol] 162 mg/dL Critically high 74-106 [facility] Comment on above: Performed By: #### B MP #### [facility] [address] [address] [address] Vega Sorensen Potassium [Moles/Vol] 3.9 mmol/L Normal 3.5-5.[address] [facility] Comment on above: Performed By: #### B MP #### [facility] [address] [address] [address] Vega Sorensen Sodium [Moles/Vol] 140 mmol/L Normal 136-145 [facility] Comment on above: Performed By: #### B MP #### [facility] [address] [address] [address] Vega Sorensen Urea nitrogen [Mass/Vol] 36.0 mg/dL Critically high 7.0-18.[address] [facility] Comment on above: Performed By: #### B MP #### [facility] [address] [address] [address] Vega Sorensen Urea nitrogen/Creatinine [Mass ratio] 21.3 mg/mg Normal [facility] Comment on above: Performed By: #### B MP #### [facility] [address] [address] [address] Vega Sorensen PROF CHEM 8 (BAS METB)on Anion gap [Moles/Vol] 14.6 mmol/L Normal [facility] Comment on above: Performed By: #### B MP ####[facility] [address] [address]Dr. Vega Sorensen Calcium [Mass/Vol] 9.1 mg/dL Normal 8.5-10.1 [facility] Comment on above: Performed By: #### B MP ####[facility] [address] [address]Dr. Vega Sorensen Chloride [Moles/Vol] 99 mmol/L Normal 98-[address] [facility] Comment on above: Performed By: #### B MP ####[facility] [address] [address]Dr. Vega Sorensen CO2 [Moles/Vol] 28.8 mmol/L Normal 21.0-32.0 [facility] Comment on above: Performed By: #### B MP ####[facility] [address] [place], [place] [address]Dr. Vega Sorensen Creatinine [Mass/Vol] 1.63 mg/dL Critically high 0.55-1.[address] [facility] Comment on above: Performed By: #### B MP ####[facility] [address] [address]Dr. Vega Sorensen EGFR-AF UZBEK 37 mL/min/1.73m2 Critically low >=60 [facility] Comment on above: Performed By: #### B MP ####[facility] [address] [address]DrDanny Sorensen EGFR-NON AF UZBEK 30 mL/min/1.73m2 Critically low >=[address] [facility] Comment on above: Performed By: #### B MP ####[facility] [address] [place], [place] [address]DrDanny Sorensen Glucose [Mass/Vol] 143 mg/dL Critically high 74-106 [facility] Comment on above: Performed By: #### B MP ####[facility] [address] [address]Dr. Vega Sorensen Potassium [Moles/Vol] 3.4 mmol/L Critically low 3.5-5.[address] [facility] Comment on above: Performed By: #### B MP ####[facility] [address] [address]DrDanny Sorensen Sodium [Moles/Vol] 139 mmol/L Normal 136-145 [facility] Comment on above: Performed By: #### B MP ####[facility] [address] [address]Dr. Vega Sorensen Urea nitrogen [Mass/Vol] 38.0 mg/dL Critically high 7.0-18.[address] [facility] Comment on above: Performed By: #### B MP ####[facility] [address] [address]Dr. Vega Sorensen Urea nitrogen/Creatinine [Mass ratio] 23.3 mg/mg Normal [facility] Comment on above: Performed By: #### B MP ####[facility] [address] [address]Dr. Vega Sorensen BNPon 08-18-2021 Natriuretic peptide B (Bld) [Mass/Vol] 5150.0 pg/mL Critically high <=1,800.[address] [facility] Comment on above: Performed By: #### B MP, BNP #### [facility] [address] [place] [address] Dr. Vega Sorensen PROF CHEM 8 (BAS METB)on Anion gap [Moles/Vol] 12.9 mmol/L Normal [facility] Comment on above: Performed By: #### B MP, BNP #### [facility] [address] [place] [address] Dr. Vega Sorensen Calcium [Mass/Vol] 9.0 mg/dL Normal 8.5-10.1 [facility] Comment on above: Performed By: #### B MP, BNP #### [facility] [address] [address] [address] Vega Sorensen Chloride [Moles/Vol] 102 mmol/L Normal 98-[address] [facility] Comment on above: Performed By: #### B MP, BNP #### [facility] [address] [address] [address] Vega Sorensen CO2 [Moles/Vol] 30.2 mmol/L Normal 21.0-32.0 [facility] Comment on above: Performed By: #### B MP, BNP #### [facility] [address] [address] [address] Vega Sorensen Creatinine [Mass/Vol] 1.90 mg/dL Critically high 0.55-1.[address] [facility] Comment on above: Performed By: #### B MP, BNP #### [facility] [address] [place] [address] Dr. Vega Sorensen EGFR-AF UZBEK 31 mL/min/1.73m2 Critically low >=[address] [facility] Comment on above: Performed By: #### B MP, BNP #### [facility] [address] [address] [address] Vega Sorensen EGFR-NON AF UZBEK 25 mL/min/1.73m2 Critically low >=[address] [facility] Comment on above: Performed By: #### B MP, BNP #### [facility] [address] [address] [address] Vega Sorensen Glucose [Mass/Vol] 121 mg/dL Critically high 74-106 [facility] Comment on above: Performed By: #### B MP, BNP #### [facility] [address] [address] [address] Vega Sorensen Potassium [Moles/Vol] 4.1 mmol/L Normal 3.5-5.[address] [facility] Comment on above: Performed By: #### B MP, BNP #### [facility] [address] [address] [address] Vega Sorensen Sodium [Moles/Vol] 141 mmol/L Normal 136-145 [facility] Comment on above: Performed By: #### B MP, BNP #### [facility] [address] [address] [address] Vega Sorensen Urea nitrogen [Mass/Vol] 34.0 mg/dL Critically high 7.0-18.[address] [facility] Comment on above: Performed By: #### B MP, BNP #### [facility] [address] [address] [address] Vega Sorensen Urea nitrogen/Creatinine [Mass ratio] 17.9 mg/mg Normal [facility] Comment on above: Performed By: #### B MP, BNP #### [facility] [address] [address] [address] Vega Castaneda 03-30-2021 L ---- Specimen: [id number] Received: 03/30/21 Status: JORGE Wagner Num: [id number] Spec Type: Surgical Subm Dr: Chad Yeboah MD Tissues: A Soft Tissue/Surgical Margin-Other than Tumor,Mass,Lip or Rosita (ANTERIOR ORBIT Procedures: HE Stain, Gross/Micro L4 Patient Age/Sex Location Account Attending Physician Jenifer Hernandez 80/F [place] [id number] Chad Yeboah MD SPEC NUM: [id number] RECD: 03/30/21 STATUS: JORGE WAGNER NUM: [id number] RACHAEL: 03/30/[address]: Chad Yeboah MD ENTERED: 03/30/21 [facility] DR: HALLEY TYPE: Surgical DEPT: S ORDERED: [...] S2 Received: 03/30/21 Status: JORGE Wagner Num: [id number] Spec Type: Surgical Subm Dr: Chad Yeboah MD Tissues: A Soft Tissue/Surgical Margin-Other than Tumor,Mass,Lip or Rosita (ANTERIOR ORBIT Procedures: HE Stain, Gross/Micro L4 Patient: Jenifer Hernandez [place] [id number] (Continued) Specimen: Received: 03/30/21 (Continued) Signed (signature on file) Mili Peguero MD 03/31/21 1648 Specimen: Received: 03/30/21 Status: JORGE Wagner Num: [id number] Spec Type: Surgical Subm Dr: Chad Yeboah MD Tissues: A Soft Tissue/Surgical Margin-Other than Tumor,Mass,Lip or Rosita (ANTERIOR ORBIT Procedures: HE Stain, Gross/Micro L4 Patient: Jenifer Hernandez [id number] (Continued) Specimen: [id number] Received: 03/30/21-2133 (Continued) Microscopic Description One glass slide with [...] characteristics were determined by the [facility] of [facility]. Immunohistochemistry assays have not been validated on decalcified tissue. Results should be interpreted with caution given the possibility of false negative results on decalcified specimens. They have not been cleared by the [place] Food and Drug Administration. The FDA has determined that such clearance or approval is not necessary. CPT Codes 69146, 64788, 73225, 63897 Specimen: [id number] Received: 03/30/21 Status: JORGE Wagner Num: [id number] Spec Type: Surgical Subm Dr: Chad Yeboah MD Tissues: A Soft Tissue/Surgical Margin-Other than Tumor,Mass,Lip or Rosita (ANTERIOR ORBIT Procedures: HE Stain, Gross/Micro L4 Patient: Jenifer Hernandez [id number] (Continued) (more content not included)... Normal [facility] CBC AUTO DIFFon 03-28-2021 BASO # 0.0 103/ul Normal 0.0-0.[address] [facility] Comment on above: Performed By: #### C BC #### [facility] [address] [place] [address] Dr. Vega Sorensen Basophils/100 WBC (Bld) 0.5 % Normal 0.2-2.[address] [facility] Comment on above: Performed By: #### C BC #### [facility] [address] [place] [address] Dr. Vega Sorensen EO # 0.1 103/ul Normal 0.0-0.[address] [facility] Comment on above: Performed By: #### C BC #### [facility] [address] [place] [address] Dr. Vega Sorensen Eosinophils/100 WBC (Bld) 1.5 % Normal 0.9-7.[address] [facility] Comment on above: Performed By: #### C BC #### [facility] [address] [place] [address] Dr. Vega Sorensen Erythrocyte distribution width (RBC) [Ratio] 13.7 % Normal 11.0-15.[address] [facility] Comment on above: Performed By: #### C BC #### [facility] [address] [place] [address] Dr. Vega Sorensen Hematocrit (Bld) [Volume fraction] 38.1 % Normal 36.0-48.[address] [facility] Comment on above: Performed By: #### C BC #### [facility] [address] [place] [address] Dr. Vega Sorensen Hemoglobin (Bld) [Mass/Vol] 12.5 g/dL Normal 12.0-16.[address] [facility] Comment on above: Performed By: #### C BC #### [facility] [address] [place] [address] Dr. Vega Sorensen IG # 0.03 10e3/ul Normal 0.00-0.[address] [facility] Comment on above: Performed By: #### C BC #### [facility] [address] [place] [address] Dr. Vega Sorensen IG % 0.4 % Normal 0.0-0.[address] [facility] Comment on above: Performed By: #### C BC #### [facility] [address] [place] [address] Dr. Vega Sorensen LYMPH # 1.4 103/ul Normal 1.2-3.[address] [facility] Comment on above: Performed By: #### C BC #### [facility] [address] [place] [address] Dr. Vega Sorensen Lymphocytes/100 WBC (Bld) 18.7 % Critically low 20.5-60.[address] [facility] Comment on above: Performed By: #### C BC #### [facility] [address] [place] [address] Dr. Vega Sorensen MANUAL DIFF REQ NO Normal [facility] Comment on above: Performed By: #### C BC #### [facility] [address] [address] [address] Vega Sorensen MCH (RBC) [Entitic mass] 34.0 pg Normal 26.7-34.[address] [facility] Comment on above: Performed By: #### C BC #### [facility] [address] [address] [address] Vega Sorensen MCHC (RBC) [Mass/Vol] 32.8 g/dL Normal 29.9-35.[address] [facility] Comment on above: Performed By: #### C BC #### [facility] [address] [address] [address] Vega Sorensen MCV (RBC) [Entitic vol] 103.5 fL Critically high 81.0-99.[address] [facility] Comment on above: Performed By: #### C BC #### [facility] [address] [place] [address] Dr. Vega Sorensen MONO # 1.0 103/ul Critically high 0.3-0.8 [facility] Comment on above: Performed By: #### C BC #### [facility] [address] [place] [address] Dr. Vega Sorensen Monocytes/100 WBC (Bld) 12.8 % Critically high 1.7-12.[address] [facility] Comment on above: Performed By: #### C BC #### [facility] [address] [place] [address] Dr. Vega Sorensen NEUT # 5.0 103/ul Normal 1.4-6.5 [facility] Comment on above: Performed By: #### C BC #### [facility] [address] [place] [address] Dr. Vega Sorensen Neutrophils/100 WBC (Bld) 66.1 % Normal 43.0-75.0 [facility] Comment on above: Performed By: #### C BC #### [facility] [address] [place] [address] Dr. Vega Sorensen Platelet mean volume (Bld) [Entitic vol] 9.2 fL Critically low 9.5-13.5 [facility] Comment on above: Performed By: #### C BC #### [facility] [address] [place] [address] Dr. Vega Sorensen PLT 180 103/ul Normal 150-[address] [facility] Comment on above: Performed By: #### C BC #### [facility] [address] [place] [address] Dr. Vega Sorensen RBC 3.68 106/ul Critically low 4.20-5.40 [facility] Comment on above: Performed By: #### C BC #### [facility] [address] [place] [address] Dr. Vega Sorensen WBC 7.5 103/ul Normal 4.0-11.[address] [facility] Comment on above: Performed By: #### C BC #### [facility] [address] [place] [address] Dr. Vega Sorensen BNPon 03-07-2021 Natriuretic peptide B (Bld) [Mass/Vol] 2297.0 pg/mL Critically high <=1,800.[address] [facility] Comment on above: Performed By: #### B MP, BNP #### [facility] [address] [place] [address] Dr. Vega Sorensen PROF CHEM 8 (BAS METB)on Anion gap [Moles/Vol] 10.0 mmol/L Normal [facility] Comment on above: Performed By: #### B MP, BNP #### [facility] [address] [place] [address] Dr. Vega Sorensen Calcium [Mass/Vol] 9.1 mg/dL Normal 8.4-10.2 [facility] Comment on above: Performed By: #### B MP, BNP #### [facility] [address] [place] [address] Dr. Vega Sorensen Chloride [Moles/Vol] 101 mmol/L Normal 98-[address] [facility] Comment on above: Performed By: #### B MP, BNP #### [facility] [address] [place] [address] Dr. Vega Sorensen CO2 [Moles/Vol] 31.8 mmol/L Critically high 22.0-30.[address] [facility] Comment on above: Performed By: #### B MP, BNP #### [facility] [address] [place] [address] Dr. Vega Sorensen Creatinine [Mass/Vol] 1.70 mg/dL Critically high 0.52-1.[address] [facility] Comment on above: Performed By: #### B MP, BNP #### [facility] [address] [place] [address] Dr. Vega Sorensen EGFR-AF UZBEK 35 mL/min/1.73m2 Critically low >=[address] [facility] Comment on above: Performed By: #### B MP, BNP #### [facility] [address] [place] [address] Dr. Vega Sorensen EGFR-NON AF UZBEK 29 mL/min/1.73m2 Critically low >=[address] [facility] Comment on above: Performed By: #### B MP, BNP #### [facility] [address] [place] [address] Dr. Vega Sorensen Glucose [Mass/Vol] 160 mg/dL Critically high 74-106 [facility] Comment on above: Performed By: #### B MP, BNP #### [facility] [address] [place] [address] Dr. Vega Sorensen Potassium [Moles/Vol] 3.8 mmol/L Normal 3.4-5.[address] [facility] Comment on above: Performed By: #### B MP, BNP #### [facility] [address] [place] [address] Dr. Vega Sorensen Sodium [Moles/Vol] 139 mmol/L Normal 137-145 [facility] Comment on above: Performed By: #### B MP, BNP #### [facility] [address] [place] [address] Dr. Vega Sorensen Urea nitrogen [Mass/Vol] 36.0 mg/dL Critically high 7.0-17.[address] [facility] Comment on above: Performed By: #### B MP, BNP #### [facility] [address] [address] [address] Vega Sorensen Urea nitrogen/Creatinine [Mass ratio] 21.2 mg/mg Normal [facility] Comment on above: Performed By: #### B MP, BNP #### [facility] [address] [address] [address] Vega Sorensen BASIC METABOLIC PANELon 11-2 Calcium [Mass/Vol] 8.7 mg/dL Normal 8.6-10.3 [facility] Comment on above: Order Comment: No: D o not add to previous draw Performed By: #### 0 0071, 05368, 76526, 97253 #### [facility] [address] [place] [address], [facility] Chloride [Moles/Vol] 95 mmol/L Low 98-107 [facility] Comment on above: Order Comment: No: D o not add to previous draw Performed By: #### 0 0071, 17543, 02519, 63469 #### [facility] [address] [place] [address], [place] CO2 [Moles/Vol] 33 mmol/L High 21-31 [facility] Comment on above: Order Comment: No: D o not add to previous draw Performed By: #### 0 0071, 52948, 36376, 66614 #### [facility] [address] [place] [address], [place] Creatinine [Mass/Vol] 1.21 mg/dL High 0.60-1.20 [facility] Comment on above: Order Comment: No: D o not add to previous draw Performed By: #### 0 0071, 34051, 55226, 09982 #### [facility] [address] [place] [address], [place] GFR/1.73 sq M predicted among blacks MDRD (S/P/Bld) [Vol rate/Area] 52 ml/min/1.73sq m Abnormal >60 [facility] Comment on above: Order Comment: No: D o not add to previous draw Result Comment: Calc ulation may not be valid for patients over 70 years Performed By: #### 0 0071, 54411, 84604, 96274 #### [facility] [address] [place] [address], [facility] GFR/1.73 sq M predicted among non-blacks MDRD (S/P/Bld) [Vol rate/Area] 43 ml/min/1.73sq m Abnormal >60 [facility] Comment on above: Order Comment: No: D o not add to previous draw Result Comment: Calc ulation may not be valid for patients over 70 years Performed By: #### 0 0071, 14949, 99537, 33734 #### [facility] [address] [place] [address], [facility] Glucose [Mass/Vol] 105 mg/dL High 70-100 [facility] Comment on above: Order Comment: No: D o not add to previous draw Performed By: #### 0 0071, 81298, 55022, 93371 #### [facility] [address] [place] [address], [facility] Potassium [Moles/Vol] 3.2 mmol/L Low 3.5-5.1 [facility] Comment on above: Order Comment: No: D o not add to previous draw Performed By: #### 0 0071, 90050, 68686, 22485 #### [facility] [address] [place] [address], [place] Sodium [Moles/Vol] 134 mmol/L Low 136-145 [facility] Comment on above: Order Comment: No: D o not add to previous draw Performed By: #### 0 0071, 27918, 33161, 15934 #### [facility] [address] [place] [address], [place] Urea nitrogen [Mass/Vol] 22 mg/dL Normal 7-25 [facility] Comment on above: Order Comment: No: D o not add to previous draw Performed By: #### 0 0071, 09204, 87633, 46750 #### [facility] [address] [place] [address], [place] Calcium [Mass/Vol] 8.5 mg/dL Low 8.6-10.3 [facility] Comment on above: Order Comment: No: D o not add to previous draw Performed By: #### 0 0071, 91151, 37519, 65585 #### [facility] [address] [place] [address], [place] Chloride [Moles/Vol] 95 mmol/L Low 98-107 [facility] Comment on above: Order Comment: No: D o not add to previous draw Performed By: #### 0 0071, 14906, 23009, 99167 #### [facility] [address] [place] [address], [place] CO2 [Moles/Vol] 34 mmol/L High 21-31 [facility] Comment on above: Order Comment: No: D o not add to previous draw Performed By: #### 0 0071, 30291, 19467, 81763 #### [facility] [address] [place] [address], [facility] Creatinine [Mass/Vol] 1.15 mg/dL Normal 0.60-1.20 [facility] Comment on above: Order Comment: No: D o not add to previous draw Performed By: #### 0 0071, 07951, 33557, 88073 #### [facility] [address] [place] [address], [place] GFR/1.73 sq M predicted among blacks MDRD (S/P/Bld) [Vol rate/Area] 55 ml/min/1.73sq m Abnormal >60 [facility] Comment on above: Order Comment: No: D o not add to previous draw Result Comment: Calc ulation may not be valid for patients over 70 years Performed By: #### 0 0071, 22449, 19573, 89256 #### [facility] [address] [place] [address], [facility] GFR/1.73 sq M predicted among non-blacks MDRD (S/P/Bld) [Vol rate/Area] 45 ml/min/1.73sq m Abnormal >60 [facility] Comment on above: Order Comment: No: D o not add to previous draw Result Comment: Calc ulation may not be valid for patients over 70 years Performed By: #### 0 0071, 57256, 98934, 05406 #### [facility] [address] [place] [address], [facility] Glucose [Mass/Vol] 109 mg/dL High 70-100 [facility] Comment on above: Order Comment: No: D o not add to previous draw Performed By: #### 0 0071, 59595, 64294, 27358 #### [facility] [address] [place] [address], [facility] Potassium [Moles/Vol] 2.8 mmol/L Low 3.5-5.1 [facility] Comment on above: Order Comment: No: D o not add to previous draw Performed By: #### 0 0071, 71509, 90853, 81770 #### [facility] [address] [place] [address], [facility] Sodium [Moles/Vol] 136 mmol/L Normal 136-145 [facility] Comment on above: Order Comment: No: D o not add to previous draw Performed By: #### 0 0071, 41936, 55495, 29038 #### [facility] [address] [place] [address], [place] Urea nitrogen [Mass/Vol] 26 mg/dL High 7-25 [facility] Comment on above: Order Comment: No: D o not add to previous draw Performed By: #### 0 0071, 00193, 45950, 13348 #### [facility] [address] [place] [address], [place] MAGNESIUM BLOODon 01-14-2019 Magnesium [Mass/Vol] 2.1 mg/dL Normal 1.9-2.7 [facility] Comment on above: Order Comment: No: D o not add to previous draw Performed By: #### 0 0071, 47378, 06834, 79204 #### [facility] [address] [place] [address], [place] Magnesium [Mass/Vol] 1.6 mg/dL Low 1.9-2.7 [facility] Comment on above: Order Comment: No: D o not add to previous draw Performed By: #### 0 0071, 18609, 72280, 99361 #### [facility] [address] [place] [address], [place] BASIC METABOLIC PANELon 11-2 Calcium [Mass/Vol] 8.6 mg/dL Normal 8.6-10.3 [facility] Comment on above: Order Comment: No: D o not add to previous draw Performed By: #### 0 0071, 95907, 51114, 21831 #### [facility] [address] [place] [address], [place] Chloride [Moles/Vol] 96 mmol/L Low 98-107 [facility] Comment on above: Order Comment: No: D o not add to previous draw Performed By: #### 0 0071, 42896, 29642, 14307 #### [facility] [address] [place] [address], [place] CO2 [Moles/Vol] 34 mmol/L High 21-31 [facility] Comment on above: Order Comment: No: D o not add to previous draw Performed By: #### 0 0071, 65424, 16182, 81808 #### [facility] [address] [place] [address], [place] Creatinine [Mass/Vol] 0.97 mg/dL Normal 0.60-1.20 [facility] Comment on above: Order Comment: No: D o not add to previous draw Performed By: #### 0 0071, 85630, 32522, 48548 #### [facility] [address] [place] [address], [place] GFR/1.73 sq M predicted among blacks MDRD (S/P/Bld) [Vol rate/Area] mL/min/{1.73_m2} Normal >60 [facility] Comment on above: Order Comment: No: D o not add to previous draw Result Comment: Calc ulation may not be valid for patients over 70 years Performed By: #### 0 0071, 14485, 05388, 63599 #### [facility] [address] [place] [address], [facility] GFR/1.73 sq M predicted among non-blacks MDRD (S/P/Bld) [Vol rate/Area] 55 ml/min/1.73sq m Abnormal >60 [facility] Comment on above: Order Comment: No: D o not add to previous draw Result Comment: Calc ulation may not be valid for patients over 70 years Performed By: #### 0 0071, 80188, 16987, 63824 #### [facility] [address] [place] [address], [place] Glucose [Mass/Vol] 93 mg/dL Normal 70-100 [facility] Comment on above: Order Comment: No: D o not add to previous draw Performed By: #### 0 0071, 79078, 69323, 78657 #### [facility] [address] [place] [address], [place] Potassium [Moles/Vol] 3.4 mmol/L Low 3.5-5.1 [facility] Comment on above: Order Comment: No: D o not add to previous draw Performed By: #### 0 0071, 92617, 39138, 32307 #### [facility] [address] [place] [address], [place] Sodium [Moles/Vol] 138 mmol/L Normal 136-145 [facility] Comment on above: Order Comment: No: D o not add to previous draw Performed By: #### 0 0071, 03352, 51823, 35234 #### [facility] [address] [place] [address], [facility] Urea nitrogen [Mass/Vol] 23 mg/dL Normal 7-25 [facility] Comment on above: Order Comment: No: D o not add to previous draw Performed By: #### 0 0071, 52683, 88867, 51260 #### [facility] [address] [place] [address], [facility] CBC COMPLETE BLOOD COUNTon 03-13-2018 Erythrocyte distribution width (RBC) [Ratio] Unable to calculate Normal 11.5-15.0 [facility] Comment on above: Order Comment: No: D o not add to previous draw Performed By: #### 0 0071, 75672, 79225, 51902 #### [facility] [address] [place] [address], [facility] Hematocrit (Bld) [Volume fraction] 29.9 % Low 36.0-45.0 [facility] Comment on above: Order Comment: No: D o not add to previous draw Performed By: #### 0 0071, 71682, 38643, 91683 #### [facility] [address] [place] [address], [facility] Hemoglobin (Bld) [Mass/Vol] 9.5 g/dL Low 12.0-15.0 [facility] Comment on above: Order Comment: No: D o not add to previous draw Performed By: #### 0 0071, 81911, 63368, 69100 #### [facility] [address] [place] [address], [place] MCH (RBC) [Entitic mass] 30.6 pg Normal 27.0-33.0 [facility] Comment on above: Order Comment: No: D o not add to previous draw Performed By: #### 0 0071, 20197, 99789, 91307 #### [facility] [address] [place] [address], [place] MCHC (RBC) [Mass/Vol] 31.8 g/dL Low 32.0-35.0 [facility] Comment on above: Order Comment: No: D o not add to previous draw Performed By: #### 0 0071, 38503, 64365, 99426 #### [facility] [address] [place] [address], [facility] MCV (RBC) [Entitic vol] 96.5 fL Normal 82.0-98.0 [facility] Comment on above: Order Comment: No: D o not add to previous draw Performed By: #### 0 0071, 13171, 65342, 24259 #### [facility] [address] [facility] [place] [address], [facility] Nucleated RBC/100 WBC (Bld) [Ratio] 0 % Normal 0-0 [facility] Comment on above: Order Comment: No: D o not add to previous draw Performed By: #### 0 0071, 32395, 61994, 47963 #### [facility] [address] [place] [address], [facility] PLAT CNT 209 10*3/uL Normal 150-400 [facility] Comment on above: Order Comment: No: D o not add to previous draw Performed By: #### 0 0071, 80565, 30307, 53305 #### [facility] [address] [facility] [place] [address], [facility] RBC (Bld) [#/Vol] 3.10 10*6/uL Low 3.80-5.00 [facility] Comment on above: Order Comment: No: D o not add to previous draw Performed By: #### 0 0071, 54645, 54365, 62485 #### [facility] [address] [place] [address], [facility] WBC (Bld) [#/Vol] 7.86 10*3/uL Normal 4.00-10.60 [facility] Comment on above: Order Comment: No: D o not add to previous draw Performed By: #### 0 0071, 09342, 90436, 30464 #### [facility] [address] [place] [address], [facility] BASIC METABOLIC PANELon 11-2 Calcium [Mass/Vol] 9.3 mg/dL Normal 8.6-10.3 [facility] Comment on above: Order Comment: No: D o not add to previous draw Performed By: #### 0 0071, 13374, 25106, 73225 #### [facility] [address] [place] [address], [facility] Chloride [Moles/Vol] 103 mmol/L Normal 98-107 [facility] Comment on above: Order Comment: No: D o not add to previous draw Performed By: #### 0 0071, 87241, 99982, 46413 #### [facility] [address] [place] [address], [facility] CO2 [Moles/Vol] 32 mmol/L High 21-31 [facility] Comment on above: Order Comment: No: D o not add to previous draw Performed By: #### 0 0071, 27112, 18562, 48703 #### [facility] [address] [place] [address], [facility] Creatinine [Mass/Vol] 1.14 mg/dL Normal 0.60-1.20 [facility] Comment on above: Order Comment: No: D o not add to previous draw Performed By: #### 0 0071, 64058, 23753, 16443 #### [facility] [address] [place] [address], [place] GFR/1.73 sq M predicted among blacks MDRD (S/P/Bld) [Vol rate/Area] 56 ml/min/1.73sq m Abnormal >60 [facility] Comment on above: Order Comment: No: D o not add to previous draw Result Comment: Calc ulation may not be valid for patients over 70 years Performed By: #### 0 0071, 79806, 21416, 68926 #### [facility] [address] [place] [address], [place] GFR/1.73 sq M predicted among non-blacks MDRD (S/P/Bld) [Vol rate/Area] 46 ml/min/1.73sq m Abnormal >60 [facility] [facility] Comment on above: Order Comment: No: D o not add to previous draw Result Comment: Calc ulation may not be valid for patients over 70 years Performed By: #### 0 0071, 88754, 06140, 98975 #### [facility] [address] [place] [address], [place] Glucose [Mass/Vol] 93 mg/dL Normal 70-100 [facility] Comment on above: Order Comment: No: D o not add to previous draw Performed By: #### 0 0071, 11461, 73020, 83281 #### [facility] [address] [place] [address], [place] Potassium [Moles/Vol] 3.5 mmol/L Normal 3.5-5.1 [facility] Comment on above: Order Comment: No: D o not add to previous draw Performed By: #### 0 0071, 77728, 54973, 12027 #### [facility] [address] [place] [address], [place] Sodium [Moles/Vol] 142 mmol/L Normal 136-145 [facility] Comment on above: Order Comment: No: D o not add to previous draw Performed By: #### 0 0071, 88293, 53731, 70968 #### [facility] [address] [place] [address], [place] Urea nitrogen [Mass/Vol] 27 mg/dL High 7-25 [facility] Comment on above: Order Comment: No: D o not add to previous draw Performed By: #### 0 0071, 49719, 84011, 49861 #### [facility] [address] [place] [address], [place] CBC COMPLETE BLOOD COUNTon 03-11-2018 Erythrocyte distribution width (RBC) [Ratio] Unable to calculate Normal 11.5-15.0 [facility] Comment on above: Order Comment: No: D o not add to previous draw Performed By: #### 0 0071, 10727, 46842, 59561 #### [facility] [address] [place] [address], [facility] Hematocrit (Bld) [Volume fraction] 27.8 % Low 36.0-45.0 [facility] Comment on above: Order Comment: No: D o not add to previous draw Performed By: #### 0 0071, 06998, 20271, 83082 #### [facility] [address] [place] [address], [facility] Hemoglobin (Bld) [Mass/Vol] 8.4 g/dL Low 12.0-15.0 [facility] Comment on above: Order Comment: No: D o not add to previous draw Performed By: #### 0 0071, 07998, 01514, 28124 #### [facility] [address] [place] [address], [facility] MCH (RBC) [Entitic mass] 29.8 pg Normal 27.0-33.0 [facility] Comment on above: Order Comment: No: D o not add to previous draw Performed By: #### 0 0071, 97076, 28437, 17382 #### [facility] [address] [place] [address], [facility] MCHC (RBC) [Mass/Vol] 30.2 g/dL Low 32.0-35.0 [facility] Comment on above: Order Comment: No: D o not add to previous draw Performed By: #### 0 0071, 74273, 72256, 63894 #### [facility] [address] [place] [address], [facility] MCV (RBC) [Entitic vol] 98.6 fL High 82.0-98.0 [facility] Comment on above: Order Comment: No: D o not add to previous draw Performed By: #### 0 0071, 15172, 73206, 71663 #### [facility] [address] [place] [address], [facility] Nucleated RBC/100 WBC (Bld) [Ratio] 0 % Normal 0-0 [facility] Comment on above: Order Comment: No: D o not add to previous draw Performed By: #### 0 0071, 61587, 80268, 21325 #### [facility] [address] [place] [address], [facility] PLAT CNT 205 10*3/uL Normal 150-400 [facility] Comment on above: Order Comment: No: D o not add to previous draw Performed By: #### 0 0071, 22001, 77430, 37536 #### [facility] [address] [place] [address], [facility] RBC (Bld) [#/Vol] 2.82 10*6/uL Low 3.80-5.00 [facility] Comment on above: Order Comment: No: D o not add to previous draw Performed By: #### 0 0071, 19911, 52881, 79957 #### [facility] [address] [place] [address], [facility] WBC (Bld) [#/Vol] 7.35 10*3/uL Normal 4.00-10.60 [facility] Comment on above: Order Comment: No: D o not add to previous draw Performed By: #### 0 0071, 49604, 59465, 17748 #### [facility] [address] [place] [address], [place] BASIC METABOLIC PANELon 11-2 Calcium [Mass/Vol] 9.0 mg/dL Normal 8.6-10.3 [facility] Comment on above: Order Comment: No: D o not add to previous draw Performed By: #### 0 0071, 11921, 49814, 05306 #### [facility] [address] [place] [address], [place] Chloride [Moles/Vol] 106 mmol/L Normal 98-107 [facility] Comment on above: Order Comment: No: D o not add to previous draw Performed By: #### 0 0071, 52349, 31255, 25143 #### [facility] [address] [place] [address], [place] CO2 [Moles/Vol] 29 mmol/L Normal 21-31 [facility] Comment on above: Order Comment: No: D o not add to previous draw Performed By: #### 0 0071, 42826, 66794, 18232 #### [facility] [address] [place] [address], [place] Creatinine [Mass/Vol] 1.33 mg/dL High 0.60-1.20 [facility] Comment on above: Order Comment: No: D o not add to previous draw Performed By: #### 0 0071, 29616, 85560, 86960 #### [facility] [address] [place] [address], [place] GFR/1.73 sq M predicted among blacks MDRD (S/P/Bld) [Vol rate/Area] 47 ml/min/1.73sq m Abnormal >60 [facility] Comment on above: Order Comment: No: D o not add to previous draw Result Comment: Calc ulation may not be valid for patients over 70 years Performed By: #### 0 0071, 43612, 31137, 90041 #### [facility] [address] [place] [address], [place] GFR/1.73 sq M predicted among non-blacks MDRD (S/P/Bld) [Vol rate/Area] 39 ml/min/1.73sq m Abnormal >60 [facility] Comment on above: Order Comment: No: D o not add to previous draw Result Comment: Calc ulation may not be valid for patients over 70 years Performed By: #### 0 0071, 71497, 49991, 67672 #### [facility] [address] [place] [address], [place] Glucose [Mass/Vol] 92 mg/dL Normal 70-100 [facility] Comment on above: Order Comment: No: D o not add to previous draw Performed By: #### 0 0071, 48162, 45699, 21205 #### [facility] [address] [place] [address], [place] Potassium [Moles/Vol] 3.9 mmol/L Normal 3.5-5.1 [facility] Comment on above: Order Comment: No: D o not add to previous draw Performed By: #### 0 0071, 57550, 32085, 92690 #### [facility] [address] [place] [address], [place] Sodium [Moles/Vol] 141 mmol/L Normal 136-145 [facility] Comment on above: Order Comment: No: D o not add to previous draw Performed By: #### 0 0071, 84224, 07084, 98741 #### [facility] [address] [place] [address], [place] Urea nitrogen [Mass/Vol] 34 mg/dL High 7-25 [facility] Comment on above: Order Comment: No: D o not add to previous draw Performed By: #### 0 0071, 75963, 85443, 06780 #### [facility] [address] [place] [address], [place] CBC COMPLETE BLOOD COUNTon 03-10-2018 Erythrocyte distribution width (RBC) [Ratio] ---- Normal 11.5-15.0 [facility] Comment on above: Order Comment: No: D o not add to previous draw Performed By: #### 0 0071, 66250, 37796, 60312 #### [facility] [address] [place] [address], [place] Hematocrit (Bld) [Volume fraction] 27.6 % Low 36.0-45.0 [facility] Comment on above: Order Comment: No: D o not add to previous draw Performed By: #### 0 0071, 16363, 30370, 53199 #### [facility] [address] [facility] [place] [address], [facility] Hemoglobin (Bld) [Mass/Vol] 8.2 g/dL Low 12.0-15.0 [facility] Comment on above: Order Comment: No: D o not add to previous draw Performed By: #### 0 0071, 26611, 81663, 09757 #### [facility] [address] [facility] [address], [facility] MCH (RBC) [Entitic mass] 29.6 pg Normal 27.0-33.0 [facility] Comment on above: Order Comment: No: D o not add to previous draw Performed By: #### 0 0071, 85840, 21711, 87076 #### [facility] [address] [facility] [place] [address], [facility] MCHC (RBC) [Mass/Vol] 29.7 g/dL Low 32.0-35.0 [facility] Comment on above: Order Comment: No: D o not add to previous draw Performed By: #### 0 0071, 82769, 71595, 37484 #### [facility] [address] [place] [address], [facility] MCV (RBC) [Entitic vol] 99.6 fL High 82.0-98.0 [facility] Comment on above: Order Comment: No: D o not add to previous draw Performed By: #### 0 0071, 32328, 29784, 30879 #### [facility] [address] [place] [address], [facility] Nucleated RBC/100 WBC (Bld) [Ratio] 0 % Normal 0-0 [facility] Comment on above: Order Comment: No: D o not add to previous draw Performed By: #### 0 0071, 79883, 71889, 12857 #### [facility] [address] [place] [address], [facility] PLAT CNT 213 10*3/uL Normal 150-400 [facility] Comment on above: Order Comment: No: D o not add to previous draw Performed By: #### 0 0071, 88406, 57078, 66626 #### [facility] [address] [place] [address], [facility] RBC (Bld) [#/Vol] 2.77 10*6/uL Low 3.80-5.00 [facility] Comment on above: Order Comment: No: D o not add to previous draw Performed By: #### 0 0071, 67379, 87420, 87705 #### [facility] [address] [place] [address], [facility] WBC (Bld) [#/Vol] 7.75 10*3/uL Normal 4.00-10.60 [facility] Comment on above: Order Comment: No: D o not add to previous draw Performed By: #### 0 0071, 45625, 65528, 29514 #### [facility] [address] [place] [address], [facility] CBC COMPLETE BLOOD COUNTon 03-09-2018 Erythrocyte distribution width (RBC) [Ratio] 27.1 % High 11.5-15.0 [facility] Comment on above: Order Comment: No: D o not add to previous draw Performed By: #### 0 0071, 73689, 32509, 25673 #### [facility] [address] [place] [address], [place] Hematocrit (Bld) [Volume fraction] 29.0 % Low 36.0-45.0 [facility] Comment on above: Order Comment: No: D o not add to previous draw Performed By: #### 0 0071, 56529, 09484, 00439 #### [facility] [address] [place] Hemoglobin (Bld) [Mass/Vol] 8.9 g/dL Low 12.0-15.0 [facility] Comment on above: Order Comment: No: D o not add to previous draw Performed By: #### 0 0071, 41169, 15637, 75928 #### [facility] [address] [place] [id number], [facility] MCH (RBC) [Entitic mass] 30.5 pg Normal 27.0-33.0 [facility] Comment on above: Order Comment: No: D o not add to previous draw Performed By: #### 0 0071, 12916, 36962, 81928 #### [facility] [address] [place] [address], [facility] MCHC (RBC) [Mass/Vol] 30.7 g/dL Low 32.0-35.0 [facility] Comment on above: Order Comment: No: D o not add to previous draw Performed By: #### 0 0071, 56566, 54397, 43811 #### [facility] [address] [place] [address], [facility] MCV (RBC) [Entitic vol] 99.3 fL High 82.0-98.0 [facility] Comment on above: Order Comment: No: D o not add to previous draw Performed By: #### 0 0071, 23970, 89345, 07323 #### [facility] [address] [facility] [place] [address], [facility] Nucleated RBC/100 WBC (Bld) [Ratio] 0 % Normal 0-0 [facility] Comment on above: Order Comment: No: D o not add to previous draw Performed By: #### 0 0071, 61613, 31322, 41003 #### [facility] [address] [place] [id number], [facility] PLAT CNT 232 10*3/uL Normal 150-400 [facility] Comment on above: Order Comment: No: D o not add to previous draw Performed By: #### 0 0071, 07235, 22428, 65677 #### [facility] [address] [place] [address], [facility] RBC (Bld) [#/Vol] 2.92 10*6/uL Low 3.80-5.00 [facility] Comment on above: Order Comment: No: D o not add to previous draw Performed By: #### 0 0071, 90646, 36080, 83867 #### [facility] [address] [place] [address], [facility] WBC (Bld) [#/Vol] 9.20 10*3/uL Normal 4.00-10.60 [facility] Comment on above: Order Comment: No: D o not add to previous draw Performed By: #### 0 0071, 58433, 49513, 87588 #### [facility] [address] [facility] [place], [place] [address] [place] [address] COMP METABOLIC PANELon 01-07 Albumin [Mass/Vol] 3.7 g/dL Normal 3.5-5.7 [facility] Comment on above: Performed By: #### 0 0071, 11457, 89965, 50226 #### [facility] [address] [facility] [address], [facility] ALKALINE PHOSPH 107 IU/L High 34-104 [facility] Comment on above: Performed By: #### 0 0071, 08815, 00536, 08632 #### [facility] [address] [facility] [place] [address], [facility] ALT [Catalytic activity/Vol] 16 U/L Normal 7-52 [facility] Comment on above: Performed By: #### 0 0071, 99386, 79491, 89782 #### [facility] [address] [place] [address], [facility] AST [Catalytic activity/Vol] 22 U/L Normal 13-39 [facility] Comment on above: Performed By: #### 0 0071, 80570, 94527, 15282 #### [facility] [address] [place] [address], [place] Bilirubin [Mass/Vol] 1.1 mg/dL High 0.3-1.0 [facility] Comment on above: Performed By: #### 0 0071, 27270, 06375, 30245 #### [facility] [address] [place] [address], [place] Calcium [Mass/Vol] 8.8 mg/dL Normal 8.6-10.3 [facility] Comment on above: Performed By: #### 0 0071, 50788, 13293, 03603 #### [facility] [address] [place] [address], [place] Chloride [Moles/Vol] 107 mmol/L Normal 98-107 [facility] Comment on above: Performed By: #### 0 0071, 42114, 09239, 66677 #### [facility] [address] [place] [address], [place] CO2 [Moles/Vol] 28 mmol/L Normal 21-31 [facility] Comment on above: Performed By: #### 0 0071, 91058, 78930, 73662 #### [facility] [address] [place] [address], [place] Creatinine [Mass/Vol] 1.73 mg/dL High 0.60-1.20 [facility] Comment on above: Performed By: #### 0 0071, 27978, 87208, 45577 #### [facility] [address] [place] [address], [place] GFR/1.73 sq M predicted among blacks MDRD (S/P/Bld) [Vol rate/Area] 34 ml/min/1.73sq m Abnormal >60 [facility] Comment on above: Result Comment: Calc ulation may not be valid for patients over 70 years Performed By: #### 0 0071, 44715, 74300, 65933 #### [facility] [address] [place] [address], [place] GFR/1.73 sq M predicted among non-blacks MDRD (S/P/Bld) [Vol rate/Area] 28 ml/min/1.73sq m Abnormal >60 [facility] Comment on above: Result Comment: Calc ulation may not be valid for patients over 70 years Performed By: #### 0 0071, 28888, 05584, 00568 #### [facility] [address] [place] [address], [place] Glucose [Mass/Vol] 98 mg/dL Normal 70-100 [facility] Comment on above: Performed By: #### 0 0071, 10422, 01199, 82681 #### [facility] [address] [place] [address], [place] Potassium [Moles/Vol] 4.6 mmol/L Normal 3.5-5.1 [facility] Comment on above: Performed By: #### 0 0071, 86016, 04216, 56180 #### [facility] [address] [place] [address], [place] Protein [Mass/Vol] 6.6 g/dL Normal 6.0-8.3 [facility] Comment on above: Performed By: #### 0 0071, 04941, 66738, 92166 #### [facility] [address] [place] [address], [place] Sodium [Moles/Vol] 141 mmol/L Normal 136-145 [facility] Comment on above: Performed By: #### 0 0071, 19384, 83001, 32715 #### [facility] [address] [place] [address], [place] Urea nitrogen [Mass/Vol] 42 mg/dL High 7-25 [facility] Comment on above: Performed By: #### 0 0071, 91494, 50268, 49734 #### [facility] [address] Cardiovascular Lab Reporton 01-07-2019 Cardiovascular Lab Report [facility] #: [id number] Physician: Kevon Trejo Abd Department of MD [facility] Service Date: 01/07/2019 Division of Birthdate: 1940 Cardiology Room #: 3CD 208106 Adult Cardiovascular Services [facility] [address] [facility]. [place] [address] Cardiovascular Laboratory Report REIMBURSEMENT MANAGER: Dr. Dedrick Washington, granulator operator. INDICATION: This is an 78-year-old female with [...] The patient was also notified that a granulator operator will be assisting during the course of [...] to the right internal jugular vein. Then, [place] sheath was inserted 6-Tristanian x 11 cm. Then, under fluoroscopy guidance, [...] Serrano MD Date Trans: 01/07/2019 03:58 P/sha [id number] cc: Edu Odonnell D.O. [address] [place], [place] [address]lc [facility] [address] Normal [facility] MAGNESIUM BLOODon 01-07-2019 Magnesium [Mass/Vol] 1.9 mg/dL Normal 1.9-2.7 [facility] Comment on above: Order Comment: No: D o not add to previous draw Performed By: #### 0 0071, 17402, 07746, 55153 #### [facility] [address] [place] [address], [facility] PHOSPHORUS BLOODon 11-20-201 9 Phosphate [Mass/Vol] 2.8 mg/dL Normal 2.5-5.0 [facility] Comment on above: Order Comment: No: D o not add to previous draw Performed By: #### 0 0071, 73845, 11625, 35103 #### [facility] [address] [place] [address], [facility] APTTon 01-06-2019 aPTT Coag (Bld) [Time] 33.6 s Normal 25.0-35.0 [facility] Comment on above: Order Comment: No: [...] THIS PURPOSE. Performed By: #### 0 0071, 52357, 57272, 43032 #### [facility] [address] [facility] [place] [address], [facility] BASIC METABOLIC PANELon 12-19 Calcium [Mass/Vol] 8.8 mg/dL Normal 8.6-10.3 [facility] Comment on above: Order Comment: No: D o not add to previous draw Performed By: #### 0 0071, 10330, 84938, 13009 #### [facility] [address] [place] [address], [facility] Chloride [Moles/Vol] 103 mmol/L Normal 98-107 [facility] Comment on above: Order Comment: No: D o not add to previous draw Performed By: #### 0 0071, 00762, 43552, 00508 #### [facility] [address] [place] [address], [facility] CO2 [Moles/Vol] 24 mmol/L Normal 21-31 [facility] Comment on above: Order Comment: No: D o not add to previous draw Performed By: #### 0 0071, 74648, 09417, 83549 #### [facility] [address] [place] [address], [place] Creatinine [Mass/Vol] 3.14 mg/dL High 0.60-1.20 [facility] Comment on above: Order Comment: No: D o not add to previous draw Performed By: #### 0 0071, 93604, 92060, 75804 #### [facility] [address] [place] [address], [place] GFR/1.73 sq M predicted among blacks MDRD (S/P/Bld) [Vol rate/Area] 17 ml/min/1.73sq m Abnormal >60 [facility] Comment on above: Order Comment: No: D o not add to previous draw Result Comment: Calc ulation may not be valid for patients over 70 years Performed By: #### 0 0071, 95083, 06066, 47117 #### [facility] [address] [place] [address], [place] GFR/1.73 sq M predicted among non-blacks MDRD (S/P/Bld) [Vol rate/Area] 14 ml/min/1.73sq m Abnormal >60 [facility] Comment on above: Order Comment: No: D o not add to previous draw Result Comment: Calc ulation may not be valid for patients over 70 years Performed By: #### 0 0071, 00011, 52609, 42978 #### [facility] [address] [place] [address], [place] Glucose [Mass/Vol] 123 mg/dL High 70-100 [facility] Comment on above: Order Comment: No: D o not add to previous draw Performed By: #### 0 0071, 29464, 38579, 65630 #### [facility] [address] [place] [address], [place] Potassium [Moles/Vol] 4.5 mmol/L Normal 3.5-5.1 [facility] Comment on above: Order Comment: No: D o not add to previous draw Performed By: #### 0 0071, 76950, 79136, 10665 #### [facility] [address] [facility]. [address] Sodium [Moles/Vol] 135 mmol/L Low 136-145 [facility] Comment on above: Order Comment: No: D o not add to previous draw Performed By: #### 0 0071, 51834, 20283, 54164 #### [facility] [address] [facility] Urea nitrogen [Mass/Vol] 60 mg/dL High 7-25 [facility] Comment on above: Order Comment: No: D o not add to previous draw Performed By: #### 0 0071, 18872, 70585, 69771 #### [facility] [address] [facility]. [address] CBC W/DIFFon 01-06-2019 ABS BASOPHILS 0.0 10*3/uL Normal 0.0-0.2 [facility] Comment on above: Order Comment: No: D o not add to previous draw Performed By: #### 0 0071, 11417, 71931, 14010 #### [facility] [address] [facility]. [address] ABS IMM GRANS 0.1 10*3/uL Normal 0.0-0.2 [facility] Comment on above: Order Comment: No: D o not add to previous draw Performed By: #### 0 0071, 98516, 42805, 11591 #### [facility] [address] [facility]. [address] ABS NEUTROPHILS 6.9 10*3/uL Normal 1.6-7.6 [facility] Comment on above: Order Comment: No: D o not add to previous draw Performed By: #### 0 0071, 17134, 63128, 75594 #### [facility] [address] [facility]. [address] ACANTHOCYTES Slight Normal [facility] Comment on above: Order Comment: No: D o not add to previous draw Performed By: #### 0 0071, 77476, 00588, 87133 #### [facility] [address] [place] [address], [facility] ANISO Marked Normal [facility] Comment on above: Order Comment: No: D o not add to previous draw Performed By: #### 0 0071, 47392, 75592, 49364 #### [facility] [address] [place] [address], [facility] Basophils/100 WBC (Bld) 0.2 % Normal 0.0-1.0 [facility] Comment on above: Order Comment: No: D o not add to previous draw Performed By: #### 0 0071, 13216, 97357, 34280 #### [facility] [address] [place] [address], [facility] ELLIPTOCYTES Slight Normal [facility] Comment on above: Order Comment: No: D o not add to previous draw Performed By: #### 0 0071, 95327, 01441, 79223 #### [facility] [address] [facility] [place] [address], [facility] Eosinophils (Bld) [#/Vol] 0.2 10*3/uL Normal 0.0-0.5 [facility] Comment on above: Order Comment: No: D o not add to previous draw Performed By: #### 0 0071, 48250, 32531, 63728 #### [facility] [address] [place] [address], [facility] Eosinophils/100 WBC (Bld) 1.6 % Normal 0.0-6.0 [facility] Comment on above: Order Comment: No: D o not add to previous draw Performed By: #### 0 0071, 53132, 45281, 95812 #### [facility] [address] Erythrocyte distribution width (RBC) [Ratio] 27.6 % High 11.5-15.0 [facility] Comment on above: Order Comment: No: D o not add to previous draw Performed By: #### 0 0071, 04468, 50952, 36006 #### [facility] [address] [place] [address], [facility] Hematocrit (Bld) [Volume fraction] 27.2 % Low 36.0-45.0 [facility] Comment on above: Order Comment: No: D o not add to previous draw Performed By: #### 0 0071, 29471, 61370, 01168 #### [facility] [address] Hemoglobin (Bld) [Mass/Vol] 8.2 g/dL Low 12.0-15.0 [facility] Comment on above: Order Comment: No: D o not add to previous draw Performed By: #### 0 0071, 11415, 58486, 88054 #### [facility] [address] [facility]. [address] IMMATURE GRANS 0.5 % Normal 0.0-1.0 [facility] Comment on above: Order Comment: No: D o not add to previous draw Performed By: #### 0 0071, 85777, 25767, 80592 #### [facility] [address] [facility] [place] [address], [facility] Lymphocytes (Bld) [#/Vol] 1.2 10*3/uL Normal 1.2-4.0 [facility] Comment on above: Order Comment: No: D o not add to previous draw Performed By: #### 0 0071, 72624, 96164, 90776 #### [facility] [address] [facility] [place] [address], [facility] Lymphocytes/100 WBC (Bld) 12.5 % Low 20.0-45.0 [facility] Comment on above: Order Comment: No: D o not add to previous draw Performed By: #### 0 0071, 06511, 59945, 48458 #### [facility] [address] [facility] [place] [address], [facility] MCH (RBC) [Entitic mass] 29.5 pg Normal 27.0-33.0 [facility] Comment on above: Order Comment: No: D o not add to previous draw Performed By: #### 0 0071, 91453, 55799, 71852 #### [facility] [address] [place] [address], [facility] MCHC (RBC) [Mass/Vol] 30.1 g/dL Low 32.0-35.0 [facility] Comment on above: Order Comment: No: D o not add to previous draw Performed By: #### 0 0071, 55966, 22889, 02309 #### [facility] [address] [facility] [address] MCV (RBC) [Entitic vol] 97.8 fL Normal 82.0-98.0 [facility] Comment on above: Order Comment: No: D o not add to previous draw Performed By: #### 0 0071, 45861, 81653, 61007 #### [facility] [address] [facility] [place] [address], [facility] Monocytes (Bld) [#/Vol] 1.4 10*3/uL High 0.1-1.0 [facility] Comment on above: Order Comment: No: D o not add to previous draw Performed By: #### 0 0071, 46268, 80609, 89135 #### [facility] [address] [facility] [place] [address], [facility] MONOS 14.5 % High 5.0-12.0 [facility] Comment on above: Order Comment: No: D o not add to previous draw Performed By: #### 0 0071, 15103, 14188, 76454 #### [facility] [address] [facility] [place] [address], [facility] Neutrophils/100 WBC (Bld) 70.7 % Normal 40.0-72.0 [facility] Comment on above: Order Comment: No: D o not add to previous draw Performed By: #### 0 0071, 90638, 55701, 44243 #### [facility] [address] [place] [id number], [facility] Nucleated RBC/100 WBC (Bld) [Ratio] 0 % Normal 0-0 [facility] Comment on above: Order Comment: No: D o not add to previous draw Performed By: #### 0 0071, 75948, 90199, 87376 #### [facility] [address] [place] [address], [facility] OVALOCYTES Slight Normal [facility] Comment on above: Order Comment: No: D o not add to previous draw Performed By: #### 0 0071, 23484, 19463, 32961 #### [facility] [address] [place] [address], [facility] PLAT CNT 236 10*3/uL Normal 150-400 [facility] Comment on above: Order Comment: No: D o not add to previous draw Performed By: #### 0 0071, 88119, 11913, 73920 #### [facility] [address] [facility] [place] [address], [facility] POIK Moderate Normal [facility] Comment on above: Order Comment: No: D o not add to previous draw Performed By: #### 0 0071, 41433, 37230, 71741 #### [facility] [address] [facility] [place] [address], [facility] POLY Slight Normal [facility] Comment on above: Order Comment: No: D o not add to previous draw Performed By: #### 0 0071, 56821, 93415, 86679 #### [facility] [address] [place] [address], [facility] RBC (Bld) [#/Vol] 2.78 10*6/uL Low 3.80-5.00 [facility] Comment on above: Order Comment: No: D o not add to previous draw Performed By: #### 0 0071, 96568, 77721, 32071 #### [facility] [address] [place] [address], [facility] SCHISTOCYTES Slight Normal [facility] Comment on above: Order Comment: No: D o not add to previous draw Performed By: #### 0 0071, 54448, 28658, 80329 #### [facility] [address] [place] [address], [facility] WBC (Bld) [#/Vol] 9.76 10*3/uL Normal 4.00-10.60 [facility] Comment on above: Order Comment: No: D o not add to previous draw Performed By: #### 0 0071, 59445, 42981, 64883 #### [facility] [address] [place] [address], [facility] CPKon 01-06-2019 CK [Catalytic activity/Vol] 26 U/L Low 30-223 [facility] Comment on above: Performed By: #### 0 0071, 91942, 08854, 45064 #### [facility] [address] [place] [address], [facility] FERRITINon 01-06-2019 Ferritin [Mass/Vol] 288 ng/mL Normal 11-307 [facility] Comment on above: Performed By: #### 0 0071, 49725, 99257, 65258 #### [facility] [address] [place] [address], [facility] MAGNESIUM BLOODon 01-06-2019 Magnesium [Mass/Vol] 2.1 mg/dL Normal 1.9-2.7 [facility] Comment on above: Order Comment: No: D o not add to previous draw Performed By: #### 0 0071, 65051, 92787, 36857 #### [facility] [address] PHOSPHORUS BLOODon 9 Phosphate [Mass/Vol] 3.9 mg/dL Normal 2.5-5.0 [facility] Comment on above: Order Comment: No: D o not add to previous draw Performed By: #### 0 0071, 62882, 49464, 47356 #### [facility] [address] [facility]. [address] PROTHROMBIN TIMEon 9 INR Coag (PPP) [Relative time] 2.22 {INR} High 0.91-1.16 [facility] Comment on above: Order Comment: No: [...] CHEST 1995;[id number]. Performed By: #### 0 0071, 42236, 26616, 74101 #### [facility] [address] [place] [address], [facility] PT Coag (PPP) [Time] 25.0 s High 12.3-14.8 [facility] Comment on above: Order Comment: No: D o not add to previous draw Result Comment: ALL RESULTS MUST BE INTERPRETED WITH RESPECT TO BLOOD DRAWING ARTIFACT OR DILUTION ERROR OF ANTICOAGULANT AT THE TIME OF SAMPLING. Performed By: #### 0 0071, 01090, 17680, 43859 #### [facility] [address] [place] [address], [facility] TIBC- INCLUDES IRONon 2018 FE SATURATION 25 % Normal 20-50 [facility] Comment on above: Performed By: #### 0 0071, 34446, 22623, 68266 #### [facility] [address] [place] [address], [facility] Iron [Mass/Vol] 87 ug/dL Normal 50-212 [facility] Comment on above: Performed By: #### 0 0071, 06133, 33428, 51808 #### [facility] [address] [place] [address], [facility] TIBC 345 mcg/dL Normal 250-450 [facility] Comment on above: Performed By: #### 0 0071, 23846, 22213, 99722 #### [facility] [address] [place] [address], [facility] UIBC 258 mcg/dL Normal 155-355 [facility] Comment on above: Performed By: #### 0 0071, 56263, 10467, 92233 #### [facility] [address] [facility] [place] [address], [facility] TRANSFERRINon 01-06-2019 Transferrin [Mass/Vol] 282 mg/dL Normal 203-362 [facility] Comment on above: Performed By: #### 0 0071, 27092, 00676, 82857 #### [facility] [address] [place] [address], [facility] ANAon 01-05-2019 Nuclear Ab IF (S) [Titer] <1:40 Normal <1:40,1:40 [facility] Comment on above: Order Comment: No: D o not add to previous draw Performed By: #### 0 0071, 85743, 05734, 82661 #### [facility] [address] [place] [address], [facility] BASIC METABOLIC PANELon 12-19 Calcium [Mass/Vol] 8.5 mg/dL Low 8.6-10.3 [facility] Comment on above: Order Comment: No: D o not add to previous draw Performed By: #### 5 0608 #### [facility] [address] [place] [address], [place] Chloride [Moles/Vol] 103 mmol/L Normal 98-107 [facility] Comment on above: Order Comment: No: D o not add to previous draw Performed By: #### 5 0608 #### [facility] [address] [place] [address], [facility] CO2 [Moles/Vol] 24 mmol/L Normal 21-31 [facility] Comment on above: Order Comment: No: D o not add to previous draw Performed By: #### 5 0608 #### [facility] [address] [place] [address], [facility] Creatinine [Mass/Vol] 2.90 mg/dL High 0.60-1.20 [facility] Comment on above: Order Comment: No: D o not add to previous draw Performed By: #### 5 0608 #### [facility] [address] [place] [address], [place] GFR/1.73 sq M predicted among blacks MDRD (S/P/Bld) [Vol rate/Area] 19 ml/min/1.73sq m Abnormal >60 [facility] Comment on above: Order Comment: No: D o not add to previous draw Result Comment: Calc ulation may not be valid for patients over 70 years Performed By: #### 5 0608 #### [facility] [address] [place] [address], [place] GFR/1.73 sq M predicted among non-blacks MDRD (S/P/Bld) [Vol rate/Area] 16 ml/min/1.73sq m Abnormal >60 [facility] Comment on above: Order Comment: No: D o not add to previous draw Result Comment: Calc ulation may not be valid for patients over 70 years Performed By: #### 5 0608 #### [facility] [address] [place] [address], [facility] Glucose [Mass/Vol] 142 mg/dL High 70-100 [facility] Comment on above: Order Comment: No: D o not add to previous draw Performed By: #### 5 0608 #### [facility] [address] [place] [address], [facility] Potassium [Moles/Vol] 4.6 mmol/L Normal 3.5-5.1 [facility] Comment on above: Order Comment: No: D o not add to previous draw Performed By: #### 5 0608 #### [facility] [address] [place] [address], [facility] Sodium [Moles/Vol] 134 mmol/L Low 136-145 [facility] Comment on above: Order Comment: No: D o not add to previous draw Performed By: #### 5 0608 #### [facility] [address] [place] [address], [facility] Urea nitrogen [Mass/Vol] 53 mg/dL High 7-25 [facility] Comment on above: Order Comment: No: D o not add to previous draw Performed By: #### 5 0608 #### [facility] [address] [place] [address], [facility] BNP (B-TYPE NATRIURETIC PEPT HARDY)on 01-05-2019 Natriuretic peptide B (Bld) [Mass/Vol] 616 pg/mL High 0-100 [facility] Comment on above: Order Comment: No: D o not add to previous draw Result Comment: Give n the appropriate clinical setting a BNP result of >100 pg/mL indicates congestive heart failure. Performed By: #### 5 0608 #### [facility] [address] CBC W/DIFFon 01-05-2019 ABS BASOPHILS 0.0 10*3/uL Normal 0.0-0.2 [facility] Comment on above: Performed By: #### 5 0608 #### [facility] [address] [place] [address], [facility] ABS IMM GRANS 0.1 10*3/uL Normal 0.0-0.2 [facility] Comment on above: Performed By: #### 5 0608 #### [facility] [address] [place] [address], [facility] ABS NEUTROPHILS 7.6 10*3/uL Normal 1.6-7.6 [facility] Comment on above: Performed By: #### 5 0608 #### [facility] [address] [facility] [address] ACANTHOCYTES Slight Normal [facility] Comment on above: Performed By: #### 5 0608 #### [facility] [address] [facility]. [address] ANISO Marked Normal [facility] Comment on above: Performed By: #### 5 0608 #### [facility] [address] [facility] [place] [address], [facility] Basophils/100 WBC (Bld) 0.2 % Normal 0.0-1.0 [facility] Comment on above: Performed By: #### 5 0608 #### [facility] [address] [place] [address], [facility] THERESA CELLS Slight Normal [facility] Comment on above: Performed By: #### 5 0608 #### [facility] [address] [facility] [place] [address], [facility] ELLIPTOCYTES Slight Normal [facility] Comment on above: Performed By: #### 5 0608 #### [facility] [address] [place] [address], [facility] Eosinophils (Bld) [#/Vol] 0.0 10*3/uL Normal 0.0-0.5 [facility] Comment on above: Performed By: #### 5 0608 #### [facility] [address] [place] [address], [facility] Eosinophils/100 WBC (Bld) 0.2 % Normal 0.0-6.0 [facility] Comment on above: Performed By: #### 5 0608 #### [facility] [address] Erythrocyte distribution width (RBC) [Ratio] 27.2 % High 11.5-15.0 [facility] Comment on above: Result Comment: Resu lt changed by ALFRED on 01/05/2019 02:09. The previous value was ----. Performed By: #### 5 0608 #### [facility] [address] Hematocrit (Bld) [Volume fraction] 27.5 % Low 36.0-45.0 [facility] Comment on above: Result Comment: Resu lt changed by ALFRED on 01/05/2019 02:09. The previous value was 27.7. Performed By: #### 5 0608 #### [facility] [address] Hemoglobin (Bld) [Mass/Vol] 8.2 g/dL Low 12.0-15.0 [facility] Comment on above: Performed By: #### 5 0608 #### [facility] [address] [place] [address], [facility] IMMATURE GRANS 0.6 % Normal 0.0-1.0 [facility] Comment on above: Performed By: #### 5 0608 #### [facility] [address] [place] [address], [facility] Lymphocytes (Bld) [#/Vol] 0.9 10*3/uL Low 1.2-4.0 [facility] Comment on above: Performed By: #### 5 0608 #### [facility] [address] [facility] [place] [address], [facility] Lymphocytes/100 WBC (Bld) 9.0 % Low 20.0-45.0 [facility] Comment on above: Performed By: #### 5 0608 #### [facility] [address] [facility] [place] [address], [facility] MCH (RBC) [Entitic mass] 29.3 pg Normal 27.0-33.0 [facility] Comment on above: Result Comment: Resu lt changed by [email or web address] on 01/05/2019 02:09. The previous value was 29.1. Performed By: #### 5 0608 #### [facility] [address] MCHC (RBC) [Mass/Vol] 29.8 g/dL Low 32.0-35.0 [facility] Comment on above: Result Comment: Resu lt changed by [email or web address] on 01/05/2019 02:09. The previous value was 29.6. Performed By: #### 5 0608 #### [facility] [address] MCV (RBC) [Entitic vol] 98.2 fL High 82.0-98.0 [facility] Comment on above: Performed By: #### 5 0608 #### [facility] [address] [place] [address], [facility] Monocytes (Bld) [#/Vol] 1.1 10*3/uL High 0.1-1.0 [facility] Comment on above: Performed By: #### 5 0608 #### [facility] [address] [place] [address], [facility] MONOS 11.8 % Normal 5.0-12.0 [facility] Comment on above: Performed By: #### 5 0608 #### [facility] [address] [place] [id number], [facility] Neutrophils/100 WBC (Bld) 78.2 % High 40.0-72.0 [facility] Comment on above: Performed By: #### 5 0608 #### [facility] [address] [place] [id number], [facility] Nucleated RBC/100 WBC (Bld) [Ratio] 0 % Normal 0-0 [facility] Comment on above: Performed By: #### 5 0608 #### [facility] [address] [facility] [place] [address], [facility] OTHER 1 Checked by Los navarro M.D. Normal [facility] Comment on above: Result Comment: Resu lt changed by BARBIE on 01/05/2019 09:19. The previous value was Preliminary report; verified report to follow. Performed By: #### 5 0608 #### [facility] [address] [place] [address], [facility] OVALOCYTES Slight Normal [facility] Comment on above: Performed By: #### 5 0608 #### [facility] [address] [facility] [place] [address], [facility] PLAT CNT 263 10*3/uL Normal 150-400 [facility] Comment on above: Performed By: #### 5 0608 #### [facility] [address] [facility] [place] [address], [facility] POIK Moderate Normal [facility] Comment on above: Performed By: #### 5 0608 #### [facility] [address] [place] [id number], [facility] RBC (Bld) [#/Vol] 2.80 10*6/uL Low 3.80-5.00 [facility] Comment on above: Result Comment: Resu lt changed by PLEEMarce on 01/05/2019 02:09. The previous value was 2.82. Performed By: #### 5 0608 #### [facility] [address] [facility] [place] [address], [facility] SCHISTOCYTES Slight Normal [facility] Comment on above: Performed By: #### 5 0608 #### [facility] [address] [facility] [place] [address], [facility] WBC (Bld) [#/Vol] 9.70 10*3/uL Normal 4.00-10.60 [facility] Comment on above: Result Comment: Resu lt changed by [email or web address] on 01/05/2019 02:09. The previous value was 9.82. Performed By: #### 5 0608 #### [facility] [address] [facility] [place] [address], [facility] COMPLEMENT 3on 01-05-2019 COMPLEMENT 3 89 mg/dL Normal 79-152 [facility] Comment on above: Order Comment: No: D o not add to previous draw Performed By: #### 0 0071, 19854, 24760, 65296 #### [facility] [address] [facility] [place] [address], [facility] COMPLEMENT 4on 01-05-2019 COMPLEMENT 4 16 mg/dL Normal 16-38 [facility] Comment on above: Order Comment: No: D o not add to previous draw Performed By: #### 0 0071, 59140, 84170, 77753 #### [facility] [address] [facility] [place] [address], [facility] CT CHEST WO CONTRASTon 01-05 CT CHEST WO CONTRAST [facility] Department of Radiology [address] [place] [address] == Patient Name: JENIFER HERNANDEZ : 1940 Sex: F Age: Race: NA Pt. Location: [id number] Patient Status: I Ordered Date: 01/05/2019 8:15:00 [...] anasarca. Electronically signed by:Christina Jules. Transcribed by: [email or web address], User Resident: Electronically Signed by: CHRISTINA JULES @ 01/06/2019 11:13 AM Normal [facility] Comment on above: Order Comment: No: D o not add to previous draw IMMUNOFIXATION BLOODon 01-05 IgA [Mass/Vol] 233 mg/dL Normal 60-413 [facility] Comment on above: Order Comment: No: D o not add to previous draw Performed By: #### 0 0071, 52196, 47970, 06340 #### [facility] [address] [place] [address], [facility] IgG [Mass/Vol] 1240 mg/dL Normal 591-1540 [facility] Comment on above: Order Comment: No: D o not add to previous draw Performed By: #### 0 0071, 09079, 89186, 61205 #### [facility] [address] [place] [address], [place] IgM [Mass/Vol] 52 mg/dL Low 54-285 [facility] Comment on above: Order Comment: No: D o not add to previous draw Performed By: #### 0 0071, 86936, 90280, 86539 #### [facility] [address] [place] [address], [place] IMMUNOFIXATION Serum Immunofixation reveals: A NORMAL PATTERN. SEE SEPARATE REPORT Normal [facility] Comment on above: Order Comment: No: D o not add to previous draw Performed By: #### 0 0071, 48301, 92824, 76886 #### [facility] [address] [place] [address], [facility] KAPPA LIGHT CHN 7.65 mg/dL High 0.33-1.94 [facility] Comment on above: Order Comment: No: D o not add to previous draw Result Comment: KF R epeated for verification. Performed By: #### 0 0071, 31833, 39544, 10649 #### [facility] [address] [place] [address], [facility] KAPPA/LAMDBA RATIO 2.37 RATIO High 0.26-1.65 [facility] Comment on above: Order Comment: No: D o not add to previous draw Result Comment: For patients with renal impairment, use a kappa/lambda ratio of 0.37-3.10 Performed By: #### 0 0071, 03159, 84719, 91872 #### [facility] [address] [facility] [place] [address], [facility] LAMBDA LIGHT CHN 3.23 mg/dL High 0.57-2.63 [facility] Comment on above: Order Comment: No: D o not add to previous draw Result Comment: LF R epeated for verification. Performed By: #### 0 0071, 96724, 25820, 19413 #### [facility] [address] [facility] [place] [address], [facility] OSMOLALITY URINEon 9 Osmolality [Osmolality] 325 mOsm/kg Normal 50-1400 [facility] Comment on above: Order Comment: No: D o not add to previous draw Performed By: #### 0 0071, 33928, 79587, 15342 #### [facility] [address] [facility] [place] [address], [facility] PROTEIN ELECT Joseph 01-05-2019 Protein [Mass/Vol] 5.9 g/dL Low 6.0-8.3 [facility] Comment on above: Order Comment: No: D o not add to previous draw Performed By: #### 0 0071, 26633, 91495, 37828 #### [facility] [address] [place] [address], [facility] Protein [Mass/Vol] Normal [facility] Comment on above: Order Comment: No: D o not add to previous draw Result Comment: Hypo albuminemia and greatly elevated alpha 2 fraction suggests nephrosis. Performed By: #### 0 0071, 91020, 13035, 14958 #### [facility] [address] [place] [address], [facility] PROTEIN ELECT URon 9 Protein [Mass/Vol] No abnormal bands seen. Normal [facility] Comment on above: Order Comment: No: D o not add to previous draw Performed By: #### 0 0071, 95584, 93001, 67213 #### [facility] [address] [place] [address], [facility] Protein [Mass/Vol] 379.0 mg/dL Normal [facility] Comment on above: Order Comment: No: D o not add to previous draw Result Comment: Ther e are no established reference values for random urine specimens Performed By: #### 0 0071, 75547, 56389, 67135 #### [facility] [address] [place] [address], [facility] SODIUM URINE RANDOMon 2018 Sodium (U) [Moles/Vol] 14 mmol/L Normal [facility] Comment on above: Order Comment: No: D o not add to previous draw Result Comment: Ther e are no established reference values for random urine specimens Performed By: #### 0 0071, 01410, 12059, 67894 #### [facility] [address] [place] [address], [place] URINALYSIS REFLEXon 01-06-20 19 Appearance (U) CLOUDY Abnormal CLEAR [facility] Comment on above: Order Comment: No: D o not add to previous draw Performed By: #### 0 0071, 73190, 48685, 26200 #### [facility] [address] [place] [address], [place] Bilirubin [Mass/Vol] Negative Normal NEGATIVE [facility] Comment on above: Order Comment: No: D o not add to previous draw Performed By: #### 0 0071, 70824, 67956, 53994 #### [facility] [address] [place] [address], [place] BLOOD Negative Normal NEGATIVE [facility] Comment on above: Order Comment: No: D o not add to previous draw Performed By: #### 0 0071, 78336, 28373, 02209 #### [facility] [address] [place] [address], [place] CALCIUM OXALATE CRYSTAL OCC Abnormal NONE SEEN [facility] Comment on above: Order Comment: No: D o not add to previous draw Performed By: #### 0 0071, 16618, 43317, 56189 #### [facility] [address] [place] [address], [facility] Color (U) FARHEEN Abnormal YELLOW [facility] Comment on above: Order Comment: No: D o not add to previous draw Performed By: #### 0 0071, 64353, 25135, 42161 #### [facility] [address] [facility] [place] [address], [place] EPIS MANY Abnormal FEW,OCC,NONE SEEN [facility] Comment on above: Order Comment: No: D o not add to previous draw Performed By: #### 0 0071, 05870, 03768, 48531 #### [facility] [address] [place] [address], [place] Glucose [Mass/Vol] Negative Normal NEGATIVE [facility] Comment on above: Order Comment: No: D o not add to previous draw Performed By: #### 0 0071, 84010, 81089, 30279 #### [facility] [address] [place] [address], [place] GRANULAR CASTS 6-8 Abnormal NONE SEEN [facility] Comment on above: Order Comment: No: D o not add to previous draw Performed By: #### 0 0071, 54807, 41977, 07422 #### [facility] [address] [place] [address], [facility] HYALINE CASTS 4-6 Abnormal NONE SEEN [facility] Comment on above: Order Comment: No: D o not add to previous draw Performed By: #### 0 0071, 55290, 00344, 91138 #### [facility] [address] [place] [address], [facility] KETONE Negative Normal NEGATIVE [facility] Comment on above: Order Comment: No: D o not add to previous draw Performed By: #### 0 0071, 42898, 21179, 92083 #### [facility] [address] [place] [address], [facility] LEUK ARASH LARGE Abnormal NEGATIVE [facility] Comment on above: Order Comment: No: D o not add to previous draw Performed By: #### 0 0071, 20498, 56740, 53326 #### [facility] [address] [facility] [place] [address], [facility] MUCUS THREADS FEW Abnormal NONE SEEN [facility] Comment on above: Order Comment: No: D o not add to previous draw Performed By: #### 0 0071, 80934, 70876, 09037 #### [facility] [address] [facility] [place] [address], [facility] Nitrite Ql (U) Negative Normal NEGATIVE [facility] Comment on above: Order Comment: No: D o not add to previous draw Performed By: #### 0 0071, 75946, 85799, 10626 #### [facility] [address] [facility] [place] [address], [facility] pH (Bld) 5.0 Normal 5.0-8.0 [facility] Comment on above: Order Comment: No: D o not add to previous draw Performed By: #### 0 0071, 53147, 99847, 94556 #### [facility] [address] [place] [address], [facility] Protein (U) [Mass/Vol] 100 mg/dL Abnormal NEGATIVE [facility] Comment on above: Order Comment: No: D o not add to previous draw Performed By: #### 0 0071, 73048, 88258, 54003 #### [facility] [address] [place] [address], [facility] RBC (U) [#/Vol] 0-2 Abnormal NONE SEEN [facility] Comment on above: Order Comment: No: D o not add to previous draw Performed By: #### 0 0071, 83634, 36258, 39415 #### [facility] [address] [place] [address], [facility] SPEC GRAV 1.015 Normal 1.015-1.020 [facility] Comment on above: Order Comment: No: D o not add to previous draw Performed By: #### 0 0071, 66334, 01356, 42917 #### [facility] [address] [place] [address], [facility] UA COMMENT 2 2-4 Waxy casts Normal [facility] Comment on above: Order Comment: No: D o not add to previous draw Performed By: #### 0 0071, 18383, 00701, 84316 #### [facility] [address] [place] [address], [facility] WBC UA 51-100 Abnormal NONE SEEN [facility] Comment on above: Order Comment: No: D o not add to previous draw Performed By: #### 0 0071, 42240, 63559, 51343 #### [facility] [address] [place] [address], [facility] URINE CONCEPCION STAIN/EOSon EOSINOPHIL SMEAR NONE SEEN Normal NSN [facility] Comment on above: Order Comment: No: D o not add to previous draw [place] Normal [facility] Comment on above: Order Comment: No: D o not add to previous draw Result Comment: Test Performed by [employer] [facility] [address] [place] [address] - Released 01/06/2019 17:38 [place] RENALon 01-05-2019 RENAL [facility] Department of Radiology [address] [place] [address] == Patient Name: JENIFER HERNANDEZ : 1940 Sex: F Age: Race: NA Pt. Location: [id number] Patient Status: I Ordered Date: 01/05/2019 2:15:00 [...] effusion. Electronically signed by:Los Lutz. Transcribed by: [email or web address], User Resident: Electronically Signed by: LOS LUTZ @ 01/05/2019 03:14 PM Normal [facility] Comment on above: Order Comment: No: D o not add to previous draw BASIC METABOLIC PANELon 11-0 Calcium [Mass/Vol] 9.2 mg/dL Normal 8.6-10.3 [facility] Comment on above: Order Comment: No: D o not add to previous draw Performed By: #### 5 0608 #### [facility] [address] [place] [address], [place] Chloride [Moles/Vol] 106 mmol/L Normal 98-107 [facility] Comment on above: Order Comment: No: D o not add to previous draw Performed By: #### 5 0608 #### [facility] [address] [place] [address], [place] CO2 [Moles/Vol] 31 mmol/L Normal 21-31 [facility] Comment on above: Order Comment: No: D o not add to previous draw Performed By: #### 5 0608 #### [facility] [address] [place] [address], [place] Creatinine [Mass/Vol] 1.01 mg/dL Normal 0.60-1.20 [facility] Comment on above: Order Comment: No: D o not add to previous draw Performed By: #### 5 0608 #### [facility] [address] [place] [address], [place] GFR/1.73 sq M predicted among blacks MDRD (S/P/Bld) [Vol rate/Area] mL/min/{1.73_m2} Normal >60 [facility] Comment on above: Order Comment: No: D o not add to previous draw Result Comment: Calc ulation may not be valid for patients over 70 years Performed By: #### 5 0608 #### [facility] [address] [place] [address], [place] GFR/1.73 sq M predicted among non-blacks MDRD (S/P/Bld) [Vol rate/Area] 53 ml/min/1.73sq m Abnormal >60 [facility] Comment on above: Order Comment: No: D o not add to previous draw Result Comment: Calc ulation may not be valid for patients over 70 years Performed By: #### 5 0608 #### [facility] [address] [place] [address], [place] Glucose [Mass/Vol] 93 mg/dL Normal 70-100 [facility] Comment on above: Order Comment: No: D o not add to previous draw Performed By: #### 5 0608 #### [facility] [address] [place] [address], [place] Potassium [Moles/Vol] 3.2 mmol/L Low 3.5-5.1 [facility] Comment on above: Order Comment: No: D o not add to previous draw Performed By: #### 5 0608 #### [facility] [address] [place] [address], [place] Sodium [Moles/Vol] 145 mmol/L Normal 136-145 [facility] Comment on above: Order Comment: No: D o not add to previous draw Performed By: #### 5 0608 #### [facility] [address] [place] [address], [place] Urea nitrogen [Mass/Vol] 31 mg/dL High 7-25 [facility] Comment on above: Order Comment: No: D o not add to previous draw Performed By: #### 5 0608 #### [facility] [address] [place] [address], [place] CBC COMPLETE BLOOD COUNTon 02-23-2018 Erythrocyte distribution width (RBC) [Ratio] 17.2 % High 11.5-15.0 [facility] Comment on above: Order Comment: No: D o not add to previous draw Performed By: #### 5 0608 #### [facility] [address] [facility] [place] [address], [facility] Hematocrit (Bld) [Volume fraction] 27.2 % Low 36.0-45.0 [facility] Comment on above: Order Comment: No: D o not add to previous draw Performed By: #### 5 0608 #### [facility] [address] [facility] [place] [address], [facility] Hemoglobin (Bld) [Mass/Vol] 7.9 g/dL Low 12.0-15.0 [facility] Comment on above: Order Comment: No: D o not add to previous draw Performed By: #### 5 0608 #### [facility] [address] [place] [address], [facility] MCH (RBC) [Entitic mass] 27.1 pg Normal 27.0-33.0 [facility] Comment on above: Order Comment: No: D o not add to previous draw Performed By: #### 5 0608 #### [facility] [address] [facility] [place] [address], [facility] MCHC (RBC) [Mass/Vol] 29.0 g/dL Low 32.0-35.0 [facility] Comment on above: Order Comment: No: D o not add to previous draw Performed By: #### 5 0608 #### [facility] [address] [facility] [address], [facility] MCV (RBC) [Entitic vol] 93.2 fL Normal 82.0-98.0 [facility] Comment on above: Order Comment: No: D o not add to previous draw Performed By: #### 5 0608 #### [facility] [address] [place] [address], [facility] Nucleated RBC/100 WBC (Bld) [Ratio] 0 % Normal 0-0 [facility] Comment on above: Order Comment: No: D o not add to previous draw Performed By: #### 5 0608 #### [facility] [address] [place] [address], [facility] PLAT CNT 238 10*3/uL Normal 150-400 [facility] Comment on above: Order Comment: No: D o not add to previous draw Performed By: #### 5 0608 #### [facility] [address] [place] [id number], [facility] RBC (Bld) [#/Vol] 2.92 10*6/uL Low 3.80-5.00 [facility] Comment on above: Order Comment: No: D o not add to previous draw Performed By: #### 5 0608 #### [facility] [address] [place] [address], [facility] WBC (Bld) [#/Vol] 7.05 10*3/uL Normal 4.00-10.60 [facility] Comment on above: Order Comment: No: D o not add to previous draw Performed By: #### 5 0608 #### [facility] [address] [place] [address], [facility] BASIC METABOLIC PANELon 11-0 -2019 Calcium [Mass/Vol] 9.5 mg/dL Normal 8.6-10.3 [facility] Comment on above: Order Comment: No: D o not add to previous draw Performed By: #### 5 0608 #### [facility] [address] [place] [id number], [facility] Chloride [Moles/Vol] 103 mmol/L Normal 98-107 [facility] Comment on above: Order Comment: No: D o not add to previous draw Performed By: #### 5 0608 #### [facility] [address] [place] [id number], [facility] CO2 [Moles/Vol] 34 mmol/L High 21-31 [facility] Comment on above: Order Comment: No: D o not add to previous draw Performed By: #### 5 0608 #### [facility] [address] [place] [address], [place] Creatinine [Mass/Vol] 1.09 mg/dL Normal 0.60-1.20 [facility] Comment on above: Order Comment: No: D o not add to previous draw Performed By: #### 5 0608 #### [facility] [address] [place] [address], [place] GFR/1.73 sq M predicted among blacks MDRD (S/P/Bld) [Vol rate/Area] 59 ml/min/1.73sq m Abnormal >60 [facility] Comment on above: Order Comment: No: D o not add to previous draw Result Comment: Calc ulation may not be valid for patients over 70 years Performed By: #### 5 0608 #### [facility] [address] [place] [address], [facility] GFR/1.73 sq M predicted among non-blacks MDRD (S/P/Bld) [Vol rate/Area] 48 ml/min/1.73sq m Abnormal >60 [facility] Comment on above: Order Comment: No: D o not add to previous draw Result Comment: Calc ulation may not be valid for patients over 70 years Performed By: #### 5 0608 #### [facility] [address] [place] [address], [place] Glucose [Mass/Vol] 149 mg/dL High 70-100 [facility] Comment on above: Order Comment: No: D o not add to previous draw Performed By: #### 5 0608 #### [facility] [address] [place] [address], [place] Potassium [Moles/Vol] 3.9 mmol/L Normal 3.5-5.1 [facility] Comment on above: Order Comment: No: D o not add to previous draw Performed By: #### 5 0608 #### [facility] [address] Sodium [Moles/Vol] 144 mmol/L Normal 136-145 [facility] Comment on above: Order Comment: No: D o not add to previous draw Performed By: #### 5 0608 #### [facility] [address] Urea nitrogen [Mass/Vol] 29 mg/dL High 7-25 [facility] Comment on above: Order Comment: No: D o not add to previous draw Performed By: #### 5 0608 #### [facility] [address] [facility] [address] HEMATOCRITon 12-23-2018 Hematocrit (Bld) [Volume fraction] 28.3 % Low 36.0-45.0 [facility] Comment on above: Order Comment: No: D o not add to previous draw Performed By: #### 9 2088, 78496 ####[facility] [facility] HEMOGLOBINon 12-23-2018 Hemoglobin (Bld) [Mass/Vol] 8.2 g/dL Low 12.0-15.0 [facility] Comment on above: Order Comment: No: D o not add to previous draw Performed By: #### 9 2088, 34345 ####[facility] [facility] MAGNESIUM BLOODon 12-23-2018 Magnesium [Mass/Vol] 1.8 mg/dL Low 1.9-2.7 [facility] Comment on above: Order Comment: No: D o not add to previous draw Performed By: #### 1 0070, 06030 ####[facility] [facility] ANAon 12-22-2018 Nuclear Ab IF (S) [Titer] <1:40 Normal <1:40,1:40 [facility] Comment on above: Order Comment: No: D o not add to previous draw Performed By: #### 5 0608 #### [facility] [address] [place] [address], [facility] BASIC METABOLIC PANELon 11-0 Calcium [Mass/Vol] 9.2 mg/dL Normal 8.6-10.3 [facility] Comment on above: Order Comment: No: D o not add to previous draw Performed By: #### 0 0071 ####[facility] [place] [address], [place] Chloride [Moles/Vol] 103 mmol/L Normal 98-107 [facility] Comment on above: Order Comment: No: D o not add to previous draw Performed By: #### 0 0071 ####[facility] [place] [address], [facility] CO2 [Moles/Vol] 30 mmol/L Normal 21-31 [facility] Comment on above: Order Comment: No: D o not add to previous draw Performed By: #### 0 0071 ####[facility] [place] [address], [facility] Creatinine [Mass/Vol] 1.05 mg/dL Normal 0.60-1.20 [facility] Comment on above: Order Comment: No: D o not add to previous draw Performed By: #### 0 0071 ####[facility] [facility] [place] [address], [facility] GFR/1.73 sq M predicted among blacks MDRD (S/P/Bld) [Vol rate/Area] mL/min/{1.73_m2} Normal >60 [facility] Comment on above: Order Comment: No: D o not add to previous draw Result Comment: Calc ulation may not be valid for patients over 70 years Performed By: #### 0 0071 ####[facility] [place] [address], [place] GFR/1.73 sq M predicted among non-blacks MDRD (S/P/Bld) [Vol rate/Area] 50 ml/min/1.73sq m Abnormal >60 [facility] Comment on above: Order Comment: No: D o not add to previous draw Result Comment: Calc ulation may not be valid for patients over 70 years Performed By: #### 0 0071 ####[facility] [place] [address], [place] Glucose [Mass/Vol] 116 mg/dL High 70-100 [facility] Comment on above: Order Comment: No: D o not add to previous draw Performed By: #### 0 0071 ####[facility] [place] [address], [place] Potassium [Moles/Vol] 3.7 mmol/L Normal 3.5-5.1 [facility] Comment on above: Order Comment: No: D o not add to previous draw Performed By: #### 0 0071 ####[facility] [place] [address], [place] Sodium [Moles/Vol] 142 mmol/L Normal 136-145 [facility] Comment on above: Order Comment: No: D o not add to previous draw Performed By: #### 0 0071 ####[facility] [place] [address], [place] Urea nitrogen [Mass/Vol] 28 mg/dL High 7-25 [facility] Comment on above: Order Comment: No: D o not add to previous draw Performed By: #### 0 0071 ####[facility] [place] [address], [place] COMPLEMENT 312-22-2018 COMPLEMENT 3 123 mg/dL Normal 79-152 [facility] Comment on above: Order Comment: Yes: Add to Previous draw if able Performed By: #### 1 0238, 93687 ####[facility] [place] [address], [place] COMPLEMENT 412-22-2018 COMPLEMENT 4 18 mg/dL Normal 16-38 [facility] Comment on above: Order Comment: Yes: Add to Previous draw if able Performed By: #### 1 0238, 37101 ####[facility] [place] [address], [facility] HEMOGLOBINon 12-22-2018 Hemoglobin (Bld) [Mass/Vol] 7.8 g/dL Low 12.0-15.0 [facility] Comment on above: Order Comment: No: D o not add to previous draw Performed By: #### 9 2089 ####[facility] [facility] [place] [address], [facility] PROTEIN ELECT Joseph 12-22-2018 Protein [Mass/Vol] 6.2 g/dL Normal 6.0-8.3 [facility] Comment on above: Order Comment: Yes: Add to Previous draw if able Performed By: #### 4 1661 ####[facility] [place] [address], [facility] Protein [Mass/Vol] Normal [facility] Comment on above: Order Comment: Yes: Add to Previous draw if able Result Comment: Hypo albuminemia is seen. This may be dilutional (from I.V. fluids) or nutritional in origin. Performed By: #### 4 1661 ####[facility] BASIC METABOLIC PANELon 11-0 Calcium [Mass/Vol] 9.1 mg/dL Normal 8.6-10.3 [facility] Comment on above: Order Comment: No: D o not add to previous draw Performed By: #### 1 0, 78078 ####[facility] [place] [address], [facility] Chloride [Moles/Vol] 104 mmol/L Normal 98-107 [facility] Comment on above: Order Comment: No: D o not add to previous draw Performed By: #### 1 69, 46508 ####[facility] [place] [address], [facility] CO2 [Moles/Vol] 30 mmol/L Normal 21-31 [facility] Comment on above: Order Comment: No: D o not add to previous draw Performed By: #### 1 69, 96793 ####[facility] [place] [address], [place] Creatinine [Mass/Vol] 1.10 mg/dL Normal 0.60-1.20 [facility] Comment on above: Order Comment: No: D o not add to previous draw Performed By: #### 1 69, 70905 ####[facility] [place] [address], [facility] GFR/1.73 sq M predicted among blacks MDRD (S/P/Bld) [Vol rate/Area] 58 ml/min/1.73sq m Abnormal >60 [facility] Comment on above: Order Comment: No: D o not add to previous draw Result Comment: Calc ulation may not be valid for patients over 70 years Performed By: #### 1 69, 83425 ####[facility] [place] [address], [facility] GFR/1.73 sq M predicted among non-blacks MDRD (S/P/Bld) [Vol rate/Area] 47 ml/min/1.73sq m Abnormal >60 [facility] Comment on above: Order Comment: No: D o not add to previous draw Result Comment: Calc ulation may not be valid for patients over 70 years Performed By: #### 1 69, [id number] ####[facility] [place] [address], [place] Glucose [Mass/Vol] 88 mg/dL Normal 70-100 [facility] Comment on above: Order Comment: No: D o not add to previous draw Performed By: #### 1 69, 67718 ####[facility] Potassium [Moles/Vol] 3.4 mmol/L Low 3.5-5.1 [facility] Comment on above: Order Comment: No: D o not add to previous draw Performed By: #### 1 69, 69638 ####[facility]3000 [facility].[address] Sodium [Moles/Vol] 142 mmol/L Normal 136-145 [facility] Comment on above: Order Comment: No: D o not add to previous draw Performed By: #### 1 69, 09748 ####[facility] Urea nitrogen [Mass/Vol] 33 mg/dL High 7-25 [facility] Comment on above: Order Comment: No: D o not add to previous draw Performed By: #### 1 69, 73260 ####[facility] HEMOGLOBINon 12-21-2018 Hemoglobin (Bld) [Mass/Vol] 7.7 g/dL Low 12.0-15.0 [facility] Comment on above: Order Comment: No: D o not add to previous draw Performed By: #### 0 0071 #### [facility] [address] [facility]. [address] MAGNESIUM BLOODon 12-21-2018 Magnesium [Mass/Vol] 1.8 mg/dL Low 1.9-2.7 [facility] Comment on above: Order Comment: No: D o not add to previous draw Performed By: #### 1 69, 91361 ####[facility] [facility].[address] BASIC METABOLIC PANELon 11-0 Calcium [Mass/Vol] 9.3 mg/dL Normal 8.6-10.3 [facility] Comment on above: Order Comment: No: D o not add to previous draw Performed By: #### 0 0071 #### [facility] [address] [place] [address], [place] Chloride [Moles/Vol] 102 mmol/L Normal 98-107 [facility] Comment on above: Order Comment: No: D o not add to previous draw Performed By: #### 0 0071 #### [facility] [address] [place] [address], [place] CO2 [Moles/Vol] 32 mmol/L High 21-31 [facility] Comment on above: Order Comment: No: D o not add to previous draw Performed By: #### 0 0071 #### [facility] [address] [place] [address], [place] Creatinine [Mass/Vol] 1.10 mg/dL Normal 0.60-1.20 [facility] Comment on above: Order Comment: No: D o not add to previous draw Performed By: #### 0 0071 #### [facility] [address] [place] [address], [place] GFR/1.73 sq M predicted among blacks MDRD (S/P/Bld) [Vol rate/Area] 58 ml/min/1.73sq m Abnormal >60 [facility] Comment on above: Order Comment: No: D o not add to previous draw Result Comment: Calc ulation may not be valid for patients over 70 years Performed By: #### 0 0071 #### [facility] [address] [place] [address], [place] GFR/1.73 sq M predicted among non-blacks MDRD (S/P/Bld) [Vol rate/Area] 47 ml/min/1.73sq m Abnormal >60 [facility] Comment on above: Order Comment: No: D o not add to previous draw Result Comment: Calc ulation may not be valid for patients over 70 years Performed By: #### 0 0071 #### [facility] [address] [place] [address], [place] Glucose [Mass/Vol] 120 mg/dL High 70-100 [facility] Comment on above: Order Comment: No: D o not add to previous draw Performed By: #### 0 0071 #### [facility] [address] [place] [address], [facility] Potassium [Moles/Vol] 3.3 mmol/L Low 3.5-5.1 [facility] Comment on above: Order Comment: No: D o not add to previous draw Performed By: #### 0 0071 #### [facility] [address] [place] [address], [facility] Sodium [Moles/Vol] 142 mmol/L Normal 136-145 [facility] Comment on above: Order Comment: No: D o not add to previous draw Performed By: #### 0 0071 #### [facility] [address] [place] [address], [facility] Urea nitrogen [Mass/Vol] 36 mg/dL High 7-25 [facility] Comment on above: Order Comment: No: D o not add to previous draw Performed By: #### 0 0071 #### [facility] [address] [place] [id number], [facility] CBC COMPLETE BLOOD COUNTon 02-19-2018 Erythrocyte distribution width (RBC) [Ratio] 15.8 % High 11.5-15.0 [facility] Comment on above: Order Comment: No: D o not add to previous draw Performed By: #### 0 0071 #### [facility] [address] [place] [address], [facility] Hematocrit (Bld) [Volume fraction] 25.4 % Low 36.0-45.0 [facility] Comment on above: Order Comment: No: D o not add to previous draw Performed By: #### 0 0071 #### [facility] [address] [place] [id number], [facility] Hemoglobin (Bld) [Mass/Vol] 7.8 g/dL Low 12.0-15.0 [facility] Comment on above: Order Comment: No: D o not add to previous draw Performed By: #### 0 0071 #### [facility] [address] [place] [address], [facility] MCH (RBC) [Entitic mass] 27.1 pg Normal 27.0-33.0 [facility] Comment on above: Order Comment: No: D o not add to previous draw Performed By: #### 0 0071 #### [facility] [address] [place] [address], [facility] MCHC (RBC) [Mass/Vol] 30.7 g/dL Low 32.0-35.0 [facility] Comment on above: Order Comment: No: D o not add to previous draw Performed By: #### 0 0071 #### [facility] [address] [place] [address], [facility] MCV (RBC) [Entitic vol] 88.2 fL Normal 82.0-98.0 [facility] Comment on above: Order Comment: No: D o not add to previous draw Performed By: #### 0 0071 #### [facility] [address] Nucleated RBC/100 WBC (Bld) [Ratio] 0 % Normal 0-0 [facility] Comment on above: Order Comment: No: D o not add to previous draw Performed By: #### 0 0071 #### [facility] [address] [place] [address], [facility] PLAT CNT 227 10*3/uL Normal 150-400 [facility] Comment on above: Order Comment: No: D o not add to previous draw Performed By: #### 0 0071 #### [facility] [address] [place] [address], [facility] RBC (Bld) [#/Vol] 2.88 10*6/uL Low 3.80-5.00 [facility] Comment on above: Order Comment: No: D o not add to previous draw Performed By: #### 0 0071 #### [facility] [address] [place] [address], [facility] WBC (Bld) [#/Vol] 8.61 10*3/uL Normal 4.00-10.60 [facility] Comment on above: Order Comment: No: D o not add to previous draw Performed By: #### 0 0071 #### [facility] [address] [place] [address], [facility] MAGNESIUM BLOODon 12-20-2018 Magnesium [Mass/Vol] 1.9 mg/dL Normal 1.9-2.7 [facility] Comment on above: Order Comment: No: D o not add to previous draw Performed By: #### 0 0071 #### [facility] [address] [place] [address], [facility] BASIC METABOLIC PANELon Calcium [Mass/Vol] 9.2 mg/dL Normal 8.6-10.3 [facility] Comment on above: Order Comment: No: D o not add to previous draw Performed By: #### 5 0608 #### [facility] [address] [place] [address], [place] Chloride [Moles/Vol] 103 mmol/L Normal 98-107 [facility] Comment on above: Order Comment: No: D o not add to previous draw Performed By: #### 5 0608 #### [facility] [address] [place] [address], [place] CO2 [Moles/Vol] 30 mmol/L Normal 21-31 [facility] Comment on above: Order Comment: No: D o not add to previous draw Performed By: #### 5 0608 #### [facility] [address] [place] [address], [place] Creatinine [Mass/Vol] 1.27 mg/dL High 0.60-1.20 [facility] Comment on above: Order Comment: No: D o not add to previous draw Performed By: #### 5 0608 #### [facility] [address] [place] [address], [facility] GFR/1.73 sq M predicted among blacks MDRD (S/P/Bld) [Vol rate/Area] 49 ml/min/1.73sq m Abnormal >60 [facility] Comment on above: Order Comment: No: D o not add to previous draw Result Comment: Calc ulation may not be valid for patients over 70 years Performed By: #### 5 0608 #### [facility] [address] [place] [address], [facility] GFR/1.73 sq M predicted among non-blacks MDRD (S/P/Bld) [Vol rate/Area] 41 ml/min/1.73sq m Abnormal >60 [facility] Comment on above: Order Comment: No: D o not add to previous draw Result Comment: Calc ulation may not be valid for patients over 70 years Performed By: #### 5 0608 #### [facility] [address] [place] [address], [facility] Glucose [Mass/Vol] 162 mg/dL High 70-100 [facility] Comment on above: Order Comment: No: D o not add to previous draw Performed By: #### 5 0608 #### [facility] [address] [place] [address], [place] Potassium [Moles/Vol] 4.2 mmol/L Normal 3.5-5.1 [facility] Comment on above: Order Comment: No: D o not add to previous draw Performed By: #### 5 0608 #### [facility] [address] [place] [address], [place] Sodium [Moles/Vol] 142 mmol/L Normal 136-145 [facility] Comment on above: Order Comment: No: D o not add to previous draw Performed By: #### 5 0608 #### [facility] [address] [place] [address], [facility] Urea nitrogen [Mass/Vol] 43 mg/dL High 7-25 [facility] Comment on above: Order Comment: No: D o not add to previous draw Performed By: #### 5 0608 #### [facility] [address] [place] [address], [facility] CREATININE URINE RANDOMon Creatinine [Mass/Vol] 32.0 mg/dL Normal [facility] Comment on above: Order Comment: No: D o not add to previous draw Result Comment: Ther e are no established reference values for random urine specimens Performed By: #### 0 0071 #### [facility] [address] [place] [id number], [facility] FERRITINon 12-19-2018 Ferritin [Mass/Vol] 20 ng/mL Normal 11- [facility] Comment on above: Order Comment: No: D o not add to previous draw Performed By: #### 0 0071 #### [facility] [address] [place] [id number], [facility] HEMOGLOBINon 12-19-2018 Hemoglobin (Bld) [Mass/Vol] 6.8 g/dL Low 12.0-15.0 [facility] Comment on above: Order Comment: No: D o not add to previous draw Performed By: #### 5 0608 #### [facility] [address] [place] [id number], [facility] MAGNESIUM BLOODon 12-19-2018 Magnesium [Mass/Vol] 1.6 mg/dL Low 1.9-2.7 [facility] Comment on above: Order Comment: No: D o not add to previous draw Performed By: #### 0 0071 #### [facility] [address] [place] [address], [facility] PROTEIN ELECT URon 9 Protein [Mass/Vol] 9.0 mg/dL Normal [facility] Comment on above: Order Comment: No: D o not add to previous draw Result Comment: Ther e are no established reference values for random urine specimens Performed By: #### 0 0071 #### [facility] [address] [place] [address], [facility] Protein [Mass/Vol] URINE PROTEIN ELECTROPHORESIS NOT DONE; T.P. <10 MG/DL Normal [facility] Comment on above: Order Comment: No: D o not add to previous draw Performed By: #### 0 0071 #### [facility] [address] [place] [address], [facility] TIBC- INCLUDES IRONon 2018 FE SATURATION 8 % Low 20-50 [facility] Comment on above: Order Comment: No: D o not add to previous draw Performed By: #### 5 0608 #### [facility] [address] [facility] [place] [address], [facility] Iron [Mass/Vol] 33 ug/dL Low 50-212 [facility] Comment on above: Order Comment: No: D o not add to previous draw Performed By: #### 5 0608 #### [facility] [address] [facility] [place] [address], [facility] TIBC 431 mcg/dL Normal 250-450 [facility] Comment on above: Order Comment: No: D o not add to previous draw Performed By: #### 5 0608 #### [facility] [address] [facility] [place] [address], [facility] UIBC 398 mcg/dL High 155-355 [facility] Comment on above: Order Comment: No: D o not add to previous draw Performed By: #### 5 0608 #### [facility] [address] [facility] [place] [address], [facility] UA,MICROSCOPIC REQUIREDon Appearance (U) CLEAR Normal CLEAR [facility] Comment on above: Order Comment: No: D o not add to previous draw Performed By: #### 0 0071 #### [facility] [address] [place] [address], [place] Bilirubin [Mass/Vol] Negative Normal NEGATIVE [facility] Comment on above: Order Comment: No: D o not add to previous draw Performed By: #### 0 0071 #### [facility] [address] [place] [address], [place] BLOOD Negative Normal NEGATIVE [facility] Comment on above: Order Comment: No: D o not add to previous draw Performed By: #### 0 0071 #### [facility] [address] [place] [address], [place] Color (U) STRAW Abnormal YELLOW [facility] Comment on above: Order Comment: No: D o not add to previous draw Performed By: #### 0 0071 #### [facility] [address] [place] [address], [place] EPIS MOD Abnormal FEW,OCC,NONE SEEN [facility] Comment on above: Order Comment: No: D o not add to previous draw Performed By: #### 0 0071 #### [facility] [address] [place] [address], [place] Glucose [Mass/Vol] Negative Normal NEGATIVE [facility] Comment on above: Order Comment: No: D o not add to previous draw Performed By: #### 0 0071 #### [facility] [address] [place] [address], [place] HYALINE CASTS 2 /LPF Abnormal NONE SEEN [facility] Comment on above: Order Comment: No: D o not add to previous draw Performed By: #### 0 0071 #### [facility] [address] [place] [address], [place] KETONE Negative Normal NEGATIVE [facility] Comment on above: Order Comment: No: D o not add to previous draw Performed By: #### 0 0071 #### [facility] [address] [place] [address], [place] LEUK ARASH Negative Normal NEGATIVE [facility] Comment on above: Order Comment: No: D o not add to previous draw Performed By: #### 0 0071 #### [facility] [address] [place] [address], [facility] Nitrite Ql (U) Negative Normal NEGATIVE [facility] Comment on above: Order Comment: No: D o not add to previous draw Performed By: #### 0 0071 #### [facility] [address] [place] [address], [facility] pH (Bld) 6.0 Normal 5.0-8.0 [facility] Comment on above: Order Comment: No: D o not add to previous draw Performed By: #### 0 0071 #### [facility] [address] [place] [address], [facility] Protein [Mass/Vol] Negative Normal NEGATIVE [facility] Comment on above: Order Comment: No: D o not add to previous draw Performed By: #### 0 0071 #### [facility] [address] [facility] [place] [address], [facility] RBC (Bld) [#/Vol] 0-2 Abnormal NONE SEEN [facility] Comment on above: Order Comment: No: D o not add to previous draw Performed By: #### 0 0071 #### [facility] [address] [facility] [address], [facility] SPEC GRAV 1.008 Low 1.015-1.020 [facility] Comment on above: Order Comment: No: D o not add to previous draw Performed By: #### 0 0071 #### [facility] [address] [facility] [place] [address], [facility] WBC UA 0-2 Abnormal NONE SEEN [facility] Comment on above: Order Comment: No: D o not add to previous draw Performed By: #### 0 0071 #### [facility] [address] [place] [address], [place] US RENALon 12-19-2018 RENAL [facility] Department of Radiology [address] [place] [address] == Patient Name: JENIFER HERNANDEZ : 1940 Sex: F Age: Race: NA Pt. Location: [id number] Patient Status: I Ordered Date: 12/19/2018 1:20:00 PM Completed Date: 12/19/2018 05:04 PM Requesting Provider: FELISHA LKUE Attending Provider: KENNEDI MARSHALL Report Copy To: [...] findings. Electronically signed by:Tyree Momin. Transcribed by: [email or web address], User Resident: JOSE CHASE Electronically Signed by: TYREE MOMIN @ 12/20/2018 03:17 PM I personally read this/these film(s) with this resident Normal [facility] Comment on above: Order Comment: No: D o not add to previous draw ANTI C3 DATon 12-18-2018 ANTI C3 SOUTH Negative Normal [facility] Comment on above: Performed By: #### 5 0608 #### [facility] [address] [place] [address], [facility] ANTI IGG DATon 12-18-2018 ANTI IGG SOUTH Negative Normal [facility] Comment on above: Performed By: #### 5 0608 #### [facility] [address] [place] [address], [place] ANTIBODY IDENTIFICATIONon ANTIBODY ID C Normal [facility] Comment on above: Performed By: #### 5 0608 #### [facility] [address] [place] [address], [place] BASIC METABOLIC PANELon 10-3 Calcium [Mass/Vol] 9.2 mg/dL Normal 8.6-10.3 [facility] Comment on above: Order Comment: No: D o not add to previous draw Performed By: #### 0 0071, 91289, 51656, 25110 #### [facility] [address] [place] [address], [place] Chloride [Moles/Vol] 98 mmol/L Normal 98-107 [facility] Comment on above: Order Comment: No: D o not add to previous draw Performed By: #### 0 0071, 86469, 89684, 53553 #### [facility] [address] [place] [address], [place] CO2 [Moles/Vol] 30 mmol/L Normal 21-31 [facility] Comment on above: Order Comment: No: D o not add to previous draw Performed By: #### 0 0071, 70842, 75341, 66107 #### [facility] [address] [place] [address], [place] Creatinine [Mass/Vol] 1.59 mg/dL High 0.60-1.20 [facility] Comment on above: Order Comment: No: D o not add to previous draw Performed By: #### 0 0071, 58448, 76632, 89533 #### [facility] [address] [place] [address], [place] GFR/1.73 sq M predicted among blacks MDRD (S/P/Bld) [Vol rate/Area] 38 ml/min/1.73sq m Abnormal >60 [facility] Comment on above: Order Comment: No: D o not add to previous draw Result Comment: Calc ulation may not be valid for patients over 70 years Performed By: #### 0 0071, 81424, 51499, 22840 #### [facility] [address] [place] [address], [place] GFR/1.73 sq M predicted among non-blacks MDRD (S/P/Bld) [Vol rate/Area] 31 ml/min/1.73sq m Abnormal >60 [facility] Comment on above: Order Comment: No: D o not add to previous draw Result Comment: Calc ulation may not be valid for patients over 70 years Performed By: #### 0 0071, 40689, 74926, 05084 #### [facility] [address] [place] [address], [place] Glucose [Mass/Vol] 115 mg/dL High 70-100 [facility] Comment on above: Order Comment: No: D o not add to previous draw Performed By: #### 0 0071, 55655, 94983, 70673 #### [facility] [address] [place] [address], [place] Potassium [Moles/Vol] 3.1 mmol/L Low 3.5-5.1 [facility] Comment on above: Order Comment: No: D o not add to previous draw Performed By: #### 0 0071, 99160, 33267, 57457 #### [facility] [address] [place] [address], [facility] Sodium [Moles/Vol] 137 mmol/L Normal 136-145 [facility] Comment on above: Order Comment: No: D o not add to previous draw Performed By: #### 0 0071, 82750, 84365, 36828 #### [facility] [address] [place] [address], [facility] Urea nitrogen [Mass/Vol] 53 mg/dL High 7-25 [facility] Comment on above: Order Comment: No: D o not add to previous draw Performed By: #### 0 0071, 79007, 04422, 41732 #### [facility] [address] CBC COMPLETE BLOOD COUNTon Erythrocyte distribution width (RBC) [Ratio] 15.9 % High 11.5-15.0 [facility] Comment on above: Order Comment: No: D o not add to previous draw Performed By: #### 5 0608 #### [facility] [address] [place] [address], [facility] Hematocrit (Bld) [Volume fraction] 21.4 % Low 36.0-45.0 [facility] Comment on above: Order Comment: No: D o not add to previous draw Performed By: #### 5 0608 #### [facility] [address] [place] [address], [facility] Hemoglobin (Bld) [Mass/Vol] 6.5 g/dL Low 12.0-15.0 [facility] Comment on above: Order Comment: No: D o not add to previous draw Performed By: #### 5 0608 #### [facility] [address] [place] [address], [facility] MCH (RBC) [Entitic mass] 26.5 pg Low 27.0-33.0 [facility] Comment on above: Order Comment: No: D o not add to previous draw Performed By: #### 5 0608 #### [facility] [address] [place] [address], [facility] MCHC (RBC) [Mass/Vol] 30.4 g/dL Low 32.0-35.0 [facility] Comment on above: Order Comment: No: D o not add to previous draw Performed By: #### 5 0608 #### [facility] [address] [facility] [place] [address], [facility] MCV (RBC) [Entitic vol] 87.3 fL Normal 82.0-98.0 [facility] Comment on above: Order Comment: No: D o not add to previous draw Performed By: #### 5 0608 #### [facility] [address] [facility] [place] [address], [facility] Nucleated RBC/100 WBC (Bld) [Ratio] 0 % Normal 0-0 [facility] Comment on above: Order Comment: No: D o not add to previous draw Performed By: #### 5 0608 #### [facility] [address] [facility] [place] [address], [facility] PLAT CNT 232 10*3/uL Normal 150-400 [facility] Comment on above: Order Comment: No: D o not add to previous draw Performed By: #### 5 0608 #### [facility] [address] [facility]. [place] [id number], [facility] RBC (Bld) [#/Vol] 2.45 10*6/uL Low 3.80-5.00 [facility] Comment on above: Order Comment: No: D o not add to previous draw Performed By: #### 5 0608 #### [facility] [address] [facility] [place] [address], [facility] WBC (Bld) [#/Vol] 7.40 10*3/uL Normal 4.00-10.60 [facility] Comment on above: Order Comment: No: D o not add to previous draw Performed By: #### 5 [id number] #### [facility] [address] Cardiovascular Lab Reporton 12-18-2018 Cardiovascular Lab Report [facility] Patient Name: Jimmie [facility] MR #: [id number] Physician: Herber Bravo of Missy Flores Medicine Service Date: 12/17/2018 Division of Birthdate: 1940 Cardiology Room #: [id number] Adult Cardiovascular Services [facility] [address] [facility]. [place] [address] Cardiovascular Laboratory Report INDICATION: The patient is [...] signed informed consent. She was brought to rags laborer in a fasting state. The right neck area was prepped and draped in usual fashion. Using ultrasound guidance and micropuncture technique, the right internal jugular vein was accessed. A 6-Tristanian x 11 cm sheath was placed. A 6-Tristanian Thompson catheter was used for right heart [...] Flores M.D. Date Trans: 12/18/2018 08:22 Becky/sha [id number] cc: Edu Odonnell D.O. [address] [facility] [address] Normal [facility] HEMOGLOBINon 12-18-2018 Hemoglobin (Bld) [Mass/Vol] 7.3 g/dL Low 12.0-15.0 [facility] Comment on above: Order Comment: No: D o not add to previous draw Performed By: #### 5 [id number] #### [facility] [address] [facility] [place] [address], [facility] Hemoglobin (Bld) [Mass/Vol] 7.2 g/dL Low 12.0-15.0 [facility] Comment on above: Order Comment: No: D o not add to previous draw Performed By: #### 5 [id number] #### [facility] [address] [facility] [place] [address], [facility] Hemoglobin (Bld) [Mass/Vol] 6.9 g/dL Low 12.0-15.0 [facility] Comment on above: Order Comment: No: D o not add to previous draw Performed By: #### 9 9 #### [facility] [address] [place] [address], [facility] IRON BLOODon 12-18-2018 Iron [Mass/Vol] 19 ug/dL Low 50-212 [facility] Comment on above: Order Comment: No: D o not add to previous draw Performed By: #### 0 0071, [id number], [id number], [id number] #### [facility] [address] [place] [address], [facility] MAGNESIUM BLOODon 12-18-2018 Magnesium [Mass/Vol] 1.8 mg/dL Low 1.9-2.7 [facility] Comment on above: Order Comment: No: D o not add to previous draw Performed By: #### 0 0071, [id number], 95812, 25206 #### [facility] [address] [facility] [place] [address], [facility] PHOSPHORUS BLOODon 9 Phosphate [Mass/Vol] 3.1 mg/dL Normal 2.5-5.0 [facility] Comment on above: Order Comment: No: D o not add to previous draw Performed By: #### 0 0071, [id number], [id number], 19854 #### [facility] [address] [facility] [place] [address], [facility] RBC'S 2 UNITSon 12-18-2018 CROSSMATCH INTERP 1 COMP Normal [facility] Comment on above: Performed By: #### 5 [id number] #### [facility] [address] [facility] [place] [address], [facility] CROSSMATCH INTERP 2 COMP Normal [facility] Comment on above: Performed By: #### 5 [id number] #### [facility] [address] [place] [address], [facility] PRODUCT CODE 1 E0336 Normal [facility] Comment on above: Performed By: #### 5 [id number] #### [facility] [address] [place] [address], [facility] PRODUCT CODE 2 E0336 Normal [facility] Comment on above: Performed By: #### 5 [id number] #### [facility] [address] [place] [address], [place] PRODUCT STATUS 1 PT Normal [facility] Comment on above: Result Comment: Resu lt changed by IF on 12/19/2018 09:14. The previous value was XM. Result changed by IF on 12/20/2018 00:30. The previous value was IS. Performed By: #### 5 [id number] #### [facility] [address] [place] [address], [facility] PRODUCT STATUS 2 RE Normal [facility] Comment on above: Result Comment: Resu lt changed by IF on 12/22/2018 07:27. The previous value was XM. Performed By: #### 5 [id number] #### [facility] [address] [place] [address], [place] UNIT ABO 1 A Normal [facility] Comment on above: Performed By: #### 5 [id number] #### [facility] [address] [place] [address], [place] UNIT ABO 2 A Normal [facility] Comment on above: Performed By: #### 5 [id number] #### [facility] [address] [place] [address], [facility] UNIT ID 1 [id number] Normal [facility] Comment on above: Performed By: #### 5 [id number] #### [facility] [address] [place] [address], [facility] UNIT ID 2 [id number] Normal [facility] Comment on above: Performed By: #### 5 [id number] #### [facility] [address] [place] [address], [place] UNIT RH 1 Negative Normal [facility] Comment on above: Performed By: #### 5 [id number] #### [facility] [address] [place] [address], [place] UNIT RH 2 Negative Normal [facility] Comment on above: Performed By: #### 5 [id number] #### [facility] [address] [place] [address], [place] TYPE AND SCREENon 12-18-2018 ABO INTERPRETATION A Normal [facility] Comment on above: Performed By: #### 5 [id number] #### [facility] [address] [place] [address], [place] RH INTERPRETATION Positive Normal [facility] Comment on above: Performed By: #### 5 [id number] #### [facility] [address] [place] [address], [place] BASIC METABOLIC PANELon 10- Calcium [Mass/Vol] 9.5 mg/dL Normal 8.6-10.3 [facility] Comment on above: Order Comment: No: D o not add to previous draw Performed By: #### 0 0071 #### [facility] [address] [place] [address], [place] Chloride [Moles/Vol] 95 mmol/L Low 98-107 [facility] Comment on above: Order Comment: No: D o not add to previous draw Performed By: #### 0 0071 #### [facility] [address] [place] [address], [place] CO2 [Moles/Vol] 29 mmol/L Normal 21-31 [facility] Comment on above: Order Comment: No: D o not add to previous draw Performed By: #### 0 0071 #### [facility] [address] [place] [address], [place] Creatinine [Mass/Vol] 2.01 mg/dL High 0.60-1.20 [facility] Comment on above: Order Comment: No: D o not add to previous draw Performed By: #### 0 0071 #### [facility] [address] [place] [address], [place] GFR/1.73 sq M predicted among blacks MDRD (S/P/Bld) [Vol rate/Area] 29 ml/min/1.73sq m Abnormal >60 [facility] Comment on above: Order Comment: No: D o not add to previous draw Result Comment: Calc ulation may not be valid for patients over 70 years Performed By: #### 0 0071 #### [facility] [address] [place] [address], [place] GFR/1.73 sq M predicted among non-blacks MDRD (S/P/Bld) [Vol rate/Area] 24 ml/min/1.73sq m Abnormal >60 [facility] Comment on above: Order Comment: No: D o not add to previous draw Result Comment: Calc ulation may not be valid for patients over 70 years Performed By: #### 0 0071 #### [facility] [address] [place] [address], [place] Glucose [Mass/Vol] 125 mg/dL High 70-100 [facility] Comment on above: Order Comment: No: D o not add to previous draw Performed By: #### 0 0071 #### [facility] [address] [place] [address], [place] Potassium [Moles/Vol] 2.8 mmol/L Low 3.5-5.1 [facility] Comment on above: Order Comment: No: D o not add to previous draw Performed By: #### 0 0071 #### [facility] [address] [place] [address], [place] Sodium [Moles/Vol] 135 mmol/L Low 136-145 [facility] Comment on above: Order Comment: No: D o not add to previous draw Performed By: #### 0 0071 #### [facility] [address] [place] [address], [place] Urea nitrogen [Mass/Vol] 62 mg/dL High 7-25 [facility] Comment on above: Order Comment: No: D o not add to previous draw Performed By: #### 0 0071 #### [facility] [address] [place] [address], [facility] CBC COMPLETE BLOOD COUNTon Erythrocyte distribution width (RBC) [Ratio] 15.8 % High 11.5-15.0 [facility] Comment on above: Order Comment: No: D o not add to previous draw Performed By: #### 5 [id number] #### [facility] [address] Hematocrit (Bld) [Volume fraction] 24.7 % Low 36.0-45.0 [facility] Comment on above: Order Comment: No: D o not add to previous draw Performed By: #### 5 [id number] #### [facility] [address] Hemoglobin (Bld) [Mass/Vol] 7.5 g/dL Low 12.0-15.0 [facility] Comment on above: Order Comment: No: D o not add to previous draw Performed By: #### 5 [id number] #### [facility] [address] [place] [address], [facility] MCH (RBC) [Entitic mass] 26.8 pg Low 27.0-33.0 [facility] Comment on above: Order Comment: No: D o not add to previous draw Performed By: #### 5 [id number] #### [facility] [address] [place] [address], [facility] MCHC (RBC) [Mass/Vol] 30.4 g/dL Low 32.0-35.0 [facility] Comment on above: Order Comment: No: D o not add to previous draw Performed By: #### 5 [id number] #### [facility] [address] [place] [address], [facility] MCV (RBC) [Entitic vol] 88.2 fL Normal 82.0-98.0 [facility] Comment on above: Order Comment: No: D o not add to previous draw Performed By: #### 5 [id number] #### [facility] [address] [facility] [place] [address], [facility] Nucleated RBC/100 WBC (Bld) [Ratio] 0 % Normal 0-0 [facility] Comment on above: Order Comment: No: D o not add to previous draw Performed By: #### 5 [id number] #### [facility] [address] [facility] [place] [address], [facility] PLAT CNT 260 10*3/uL Normal 150-400 [facility] Comment on above: Order Comment: No: D o not add to previous draw Performed By: #### 5 [id number] #### [facility] [address] [facility] [place] [address], [facility] RBC (Bld) [#/Vol] 2.80 10*6/uL Low 3.80-5.00 [facility] Comment on above: Order Comment: No: D o not add to previous draw Performed By: #### 5 [id number] #### [facility] [address] [facility] [place] [address], [facility] WBC (Bld) [#/Vol] 8.14 10*3/uL Normal 4.00-10.60 [facility] Comment on above: Order Comment: No: D o not add to previous draw Performed By: #### 5 [id number] #### [facility] [address] [place] [address], [facility] CHEST AND LATERALon 12-18-19 19 CHEST AND LATERAL [facility] Department of Radiology [address] [place] [id number] == Patient Name: JENIFER HERNANDEZ : 1940 [...] lungs Electronically signed by:Dori Olson. Transcribed by: [email or web address], User Resident: Electronically Signed by: DORI OLSON @ 12/17/2018 01:43 PM Normal [facility] Comment on above: Order Comment: R/O E ffusion History and Physicalon 12-17 History and Physical MR#: [id number] [facility] Pt. Name: Jenifer Hernandez Admitted: 12/17/2018 Date of : 1940 Attending Physician: Beverly Brock MD Room #: [id number] Discharge Date: HISTORY AND PHYSICAL CHIEF COMPLAINT: Shortness of breath. HISTORY OF PRESENT ILLNESS: This is an 78-year-old female with past medical history significant for diastolic congestive heart failure, history of coronary artery disease status post remote CABG, history of gastric/duodenal ulcer disease, and history of chronic atrial fibrillation, on Xarelto. The patient was evaluated with her environmental analyst recently for increased shortness of breath on simple daily activities like walking few steps from the garage to her home. She was found to be in exacerbation of her diastolic heart failure and her diuretic dosage was increased. She was sent to [facility] for an elective right heart catheterization which [...] for that she was seen by a va underwriter. She thinks that she had an EGD [...] Brock MD Date Trans: 12/17/2018 12:28 P/sha [id number] Normal [facility] Vital Signs Date Time Vital Sign Value Performing Clinician Facility 11-12-2024 13:56-0400 Body height 162.56 cm Joi Guajardo DO Work Phone: [facility] 11-12-2024 13:56-0400 Body mass index (BMI) [Ratio] 26.6 kg/m2 Joi Bennett DO Work Phone: [facility] 11-12-2024 13:56-0400 Body weight 70.3 kg Joi Bennett DO Work Phone: [facility] 11-12-2024 13:56-0400 Diastolic blood pressure 70 mm[Hg] Joi Bennett DO Work Phone: [facility] 11-12-2024 13:56-0400 Heart rate 82 /min Joi Bennett DO Work Phone: [facility] 11-12-2024 13:56-0400 Respiratory rate 16 /min Joi Bennett DO Work Phone: [facility] 11-12-2024 13:56-0400 SaO2% (BldA) [Mass fraction] 93 % Joi Bennett DO Work Phone: [facility] 11-12-2024 13:56-0400 Systolic blood pressure 116 mm[Hg] Joi Bennett DO Work Phone: [facility] 07-23-2024 10:31-0400 Body mass index (BMI) [Ratio] 27.46 kg/m2 Allyssa Baez LAMINATING PRESS OPERATOR Work Phone: [facility] 07-23-2024 10:31-0400 Body temperature 98.29 [degF] Allyssa Baez LAMINATING PRESS OPERATOR Work Phone: [facility] 07-23-2024 10:31-0400 Body weight 72.58 kg Allyssa Nestor LAMINATING PRESS OPERATOR Work Phone: [facility] 07-23-2024 10:31-0400 Diastolic blood pressure 72 mm[Hg] Allyssa Elisabethz LAMINATING PRESS OPERATOR Work Phone: [facility] 07-23-2024 10:31-0400 Heart rate 79 /min Allyssa Nestor LAMINATING PRESS OPERATOR Work Phone: [facility] 07-23-2024 10:31-0400 Respiratory rate 18 /min Allyssa Codieholz LAMINATING PRESS OPERATOR Work Phone: [facility] 07-23-2024 10:31-0400 SaO2% (BldA) [Mass fraction] 96 % Allyssa Bohholz LAMINATING PRESS OPERATOR Work Phone: [facility] 07-23-2024 10:31-0400 Systolic blood pressure 122 mm[Hg] Allyssa Aichholz LAMINATING PRESS OPERATOR Work Phone: [facility] 05-26-2024 09:08-0400 Body mass index (BMI) [Ratio] 27.29 kg/m2 Allyssa Aichholz LAMINATING PRESS OPERATOR Work Phone: [facility] 05-26-2024 09:08-0400 Body temperature 98.49 [degF] Allyssa Aichholz LAMINATING PRESS OPERATOR Work Phone: [facility] 05-26-2024 09:08-0400 Body weight 72.12 kg Allyssa Aichholz LAMINATING PRESS OPERATOR Work Phone: [facility] 05-26-2024 09:08-0400 Diastolic blood pressure 68 mm[Hg] Allyssa Aichholz LAMINATING PRESS OPERATOR Work Phone: [facility] 05-26-2024 09:08-0400 Heart rate 55 /min Allyssa Aichholz LAMINATING PRESS OPERATOR Work Phone: [facility] 05-26-2024 09:08-0400 Respiratory rate 20 /min Allyssa Aichholz LAMINATING PRESS OPERATOR Work Phone: [facility] 05-26-2024 09:08-0400 SaO2% (BldA) [Mass fraction] 99 % Allyssa Aichholz LAMINATING PRESS OPERATOR Work Phone: [facility] 05-26-2024 09:08-0400 Systolic blood pressure 128 mm[Hg] Allyssa Aichholz LAMINATING PRESS OPERATOR Work Phone: [facility] 01-09-2024 14:06-0500 Body height 162.6 cm Shell Hemphill LAMINATING PRESS OPERATOR Work Phone: [facility] 01-09-2024 14:06-0500 Body mass index (BMI) [Ratio] 27.84 kg/m2 Shell Hemphill LAMINATING PRESS OPERATOR Work Phone: [facility] 01-09-2024 14:06-0500 Body temperature 99.5 [degF] Shell Hemphill LAMINATING PRESS OPERATOR Work Phone: [facility] 01-09-2024 14:06-0500 Body weight 73.57 kg Shell Hemphill LAMINATING PRESS OPERATOR Work Phone: [facility] 01-09-2024 14:06-0500 Diastolic blood pressure 64 mm[Hg] Shell Hemphill LAMINATING PRESS OPERATOR Work Phone: [facility] 01-09-2024 14:06-0500 Heart rate 88 /min Shell Hemphill LAMINATING PRESS OPERATOR Work Phone: [facility] 01-09-2024 14:06-0500 Respiratory rate 16 /min Shell Hemphill LAMINATING PRESS OPERATOR Work Phone: [facility] 01-09-2024 14:06-0500 SaO2% (BldA) [Mass fraction] 94 % Shell Hemphill LAMINATING PRESS OPERATOR Work Phone: [facility] 01-09-2024 14:06-0500 Systolic blood pressure 116 mm[Hg] Shell Hemphill LAMINATING PRESS OPERATOR Work Phone: [facility] 10-14-2023 09:03-0400 Body height 162.6 cm Shell Hemphill LAMINATING PRESS OPERATOR Work Phone: [facility] 10-14-2023 09:03-0400 Body mass index (BMI) [Ratio] 26.43 kg/m2 Shell Hemphill LAMINATING PRESS OPERATOR Work Phone: [facility] 10-14-2023 09:03-0400 Body temperature 99.5 [degF] Shell Hemphill LAMINATING PRESS OPERATOR Work Phone: [facility] 10-14-2023 09:03-0400 Body weight 69.85 kg Shell Hemphill LAMINATING PRESS OPERATOR Work Phone: [facility] 10-14-2023 09:03-0400 Diastolic blood pressure 70 mm[Hg] Shell Hemphill LAMINATING PRESS OPERATOR Work Phone: [facility] 10-14-2023 09:03-0400 Heart rate 92 /min Shell Hemphill LAMINATING PRESS OPERATOR Work Phone: [facility] Comment on above: 96% O2 10-14-2023 09:03-0400 Systolic blood pressure 120 mm[Hg] Shell Hemphill LAMINATING PRESS OPERATOR Work Phone: [facility] Encounters Encounter Date Encounter Type Care Provider Facility Start: 11-12-2024 End: 11-12-2024 ambulatory Joi Gouldp DO Work Phone: [facility] Work Phone: Start: 11-12-2024 End: 11-12-2024 Patient encounter procedure Joi Bennett DO -[facility] Work Phone: Start: 09-07-2024 End: 09-07-2024 ambulatory [facility] Start: 08-19-2024 End: 08-20-2024 Clinisync Result Encounter Generic External Data Provider [facility] External Department Unsolicited Start: 08-19-2024 End: 08-20-2024 Clinisync Result Encounter Generic External Data Provider [facility] External Department Unsolicited Start: 07-30-2024 End: 07-30-2024 Refill Keith Foley MD Work Phone: [facility] Comment on above: Chronic diastolic he art failure (HCC) Start: 07-23-2024 End: 07-23-2024 Bamboo flowsheet Allyssa Baez LAMINATING PRESS OPERATOR Work Phone: [facility] Start: 07-23-2024 End: 07-23-2024 Bamboo flowsheet Allyssa Baez LAMINATING PRESS OPERATOR Work Phone: [facility] Start: 07-23-2024 End: 07-23-2024 Patient encounter procedure Allyssa Baez NP Work Phone: [facility] Comment on above: Encounter for subseq uent annual wellness visit (AWV) in Medicare patient (Primary Dx); Chronic atrial fibrillation, unspecified (CMS/HCC); Chronic diastolic heart failure (CMS/HCC); Coronary artery disease involving [place] coronary artery of [place] heart without angina pectoris (CMS/HCC); Primary hypertension (CMS/HCC); Chronic kidney disease, stage 3b (HCC) (CMS/HCC); Type 2 diabetes mellitus with diabetic chronic kidney disease (CMS/HCC); Type 2 diabetes mellitus with diabetic cataract (CMS/HCC); Numbness of fingers of both hands Start: 07-23-2024 End: 07-23-2024 ambulatory ALLYSSA CODIEHOLKimberly Not Available Start: 06-22-2024 End: 06-23-2024 Dayron Foley MD Work Phone: [facility] Comment on above: Hypercholesteremia ( CMS/HCC) Start: 05-26-2024 End: 05-26-2024 Bamboo flowsheet Allyssa Baez NP Work Phone: [facility] Start: 05-26-2024 End: 05-26-2024 Bamboo flowsheet Allyssa Baez LAMINATING PRESS OPERATOR Work Phone: [facility] Start: 05-26-2024 End: 05-26-2024 ambulatory ALLYSSA AICHHOLZ Not Available Start: 05-26-2024 End: 05-26-2024 Office outpatient visit 25 minutes Allyssa Baez NP Work Phone: [facility] Comment on above: Primary hypertension (CMS/HCC) (Primary Dx); Chronic atrial fibrillation, unspecified (CMS/HCC); Type 2 diabetes mellitus without complications; Chronic kidney disease, stage 3b (HCC) (CMS/HCC); Coronary artery disease involving [place] coronary artery of [place] heart without angina pectoris (CMS/HCC); Nonrheumatic tricuspid valve regurgitation; Pulmonary HTN (CMS/HCC); Gastroesophageal reflux disease without esophagitis; Mixed hyperlipidemia (CMS/HCC); Chronic diastolic heart failure (CMS/HCC) Start: 05-13-2024 End: 05-13-2024 Clinisync Result Encounter Allyssa Baez LAMINATING PRESS OPERATOR Work Phone: [facility] External Department Unsolicited Start: 05-13-2024 End: 05-13-2024 Clinisync Result Encounter Allyssa Nestor LAMINATING PRESS OPERATOR Work Phone: [facility] External Department Unsolicited Start: 05-13-2024 End: 05-13-2024 Telephone encounter Allyssa Baez LAMINATING PRESS OPERATOR Work Phone: [facility] Start: 03-01-2024 End: 03-02-2024 Refill Shell Hemphill LAMINATING PRESS OPERATOR Work Phone: [facility] Comment on above: Hypercholesteremia ( CMS/HCC) Start: 02-20-2024 End: 02-24-2024 Refill Shell Hemphill LAMINATING PRESS OPERATOR Work Phone: [facility] Comment on above: Chronic diastolic he art failure (CMS/HCC) Start: 02-04-2024 End: 02-04-2024 Clinisync Result Encounter Generic External Data Provider [facility] External Department Unsolicited Start: 02-04-2024 End: 02-04-2024 Clinisync Result Encounter Generic External Data Provider [facility] External Department Unsolicited Start: 01-13-2024 End: 01-13-2024 ambulatory [facility] Start: 01-09-2024 End: 01-09-2024 Office outpatient visit 15 minutes Shell Hemphill LAMINATING PRESS OPERATOR Work Phone: [facility] Comment on above: Hypertension, unspec ified type (CMS/HCC) (Primary Dx); Other hyperlipidemia (CMS/HCC); Stage 3b chronic kidney disease (HCC) (CMS/HCC) Start: 01-09-2024 End: 01-09-2024 Bamboo flowsheet Shell Hemphill LAMINATING PRESS OPERATOR Work Phone: [facility] Start: 01-09-2024 End: 01-09-2024 Bamboo flowsheet Shell Neritrick LAMINATING PRESS OPERATOR Work Phone: [facility] Start: 01-09-2024 End: 01-09-2024 ambulatory SHELL HEMPHILL Not Available Start: 12-26-2023 End: 12-26-2023 Clinisync Result Encounter Generic External Data Provider [facility] External Department Unsolicited Start: 12-26-2023 End: 12-26-2023 Clinisync Result Encounter Generic External Data Provider [facility] External Department Unsolicited Start: 12-18-2023 End: 12-18-2023 ambulatory [facility] Start: 12-18-2023 End: 12-18-2023 Clinisync Result Encounter Generic External Data Provider [facility] External Department Unsolicited Start: 12-18-2023 End: 12-18-2023 Clinisync Result Encounter Generic External Data Provider [facility] External Department Unsolicited Start: 11-25-2023 End: 11-25-2023 Refill Shell Hemphill LAMINATING PRESS OPERATOR Work Phone: [facility] Comment on above: Hypercholesteremia ( CMS/HCC) (Primary Dx) Start: 10-28-2023 End: 10-28-2023 Clinisync Result Encounter Generic External Data Provider [facility] External Department Unsolicited Start: 10-28-2023 End: 10-28-2023 Clinisync Result Encounter Generic External Data Provider [facility] External Department Unsolicited Start: 10-14-2023 End: 10-14-2023 Bamboo flowsheet Shell Silvapatrick LAMINATING PRESS OPERATOR Work Phone: [facility] Start: 10-14-2023 End: 10-14-2023 Bamboo flowsheet Shell Silvapatrick LAMINATING PRESS OPERATOR Work Phone: [facility] Start: 10-14-2023 End: 10-14-2023 Office outpatient visit 25 minutes Shell Hemphill LAMINATING PRESS OPERATOR Work Phone: [facility] Comment on above: Hypercholesteremia ( CMS/HCC) (Primary Dx); Hypertensive heart disease with heart failure (CMS/HCC); Hypertension, unspecified type (CMS/HCC); Cerumen debris on tympanic membrane of both ears; Stage 3b chronic kidney disease (HCC) (CMS/HCC); Chronic fatigue Start: 10-14-2023 End: 10-14-2023 ambulatory SHELL SILVAPATRICK Not Available Start: 09-25-2023 End: 09-25-2023 ambulatory HERBER FLORES [facility] Start: 01-31-2022 End: 02-01-[address] [...] Evaluation and management of inpatient KENNEDI MARSHALL Facility:[facility] Start: 12-17-2018 End: 12-24-2018 Evaluation and management of inpatient EDU ODONNELL Facility:[facility] Procedures Date Procedure Procedure Detail Performing Clinician Start: 08-19-2024 CA ECHO DOPPLER COMPLETE Generic External Data Provider Start: 05-26-2024 Hemoglobin glycosyla dannielle a1c Allyssa Baez LAMINATING PRESS OPERATOR Work Phone: Start: 05-13-2024 ALL CBC WITH AUTO DIFF Allyssa Baez LAMINATING PRESS OPERATOR Work Phone: Start: 02-04-2024 ALL BASIC METABOLIC PANEL Generic External Data Provider Start: 12-26-2023 ALL BASIC METABOLIC PANEL Generic External Data Provider Start: 12-18-2023 ALL BASIC METABOLIC PANEL Generic External Data Provider Start: 10-28-2023 ALL BASIC METABOLIC PANEL Generic External Data Provider Start: 02-01-2022 History of coronary artery bypass grafting History of coronary artery bypass graft Shell Hemphill NP Work Phone: Start: 01-12-2019 Jainism of Cardi ac Rhythm, Single MOSHRIK ABD [...] above: Performed By: #### [id number] #### [address] Start: 12-17-2018 MEASURE OF CARDIAC S AMPL \T\ PRESSURE, R HEART, PERC APPROACH HERBER FLORES Start: 12-17-2018 MEASUREMENT OF ARTER IAL FLOW, PULMONARY, PERC APPROACH HERBER FLORES Plan of Treatment Date Care Activity Detail Author Start: 07-26-2025 End: 07-26-2025 Patient encounter procedure 07/26/2025 10:00 AM EDT Office Visit [facility] [address] [place] [address] Allyssa Baez NP [address] [place] [phone] [facility] Start: 05-13-2025 Urine screening for protein Diabetes: Urine Protein Screening [facility] Start: 10-27-2024 End: 10-27-2024 Patient encounter procedure 10/27/2024 9:40 AM EDT Office Visit [facility] [address] [place] [address] Allyssa Baez NP [address] [place] [phone] [facility] Start: 10-19-2024 Influenza vaccination Influenza Vaccine (Season Ended) [facility] Start: 08-25-2024 Hemoglobin A1c measurement Diabetes: [facility] Start: 07-23-2024 End: 07-23-2024 Patient encounter procedure [facility] Comment on above: Encounter for subsequent annual wellness visit (AWV) in Medicare patient (Primary Dx); Chronic atrial fibrillation, unspecified ([facility]/HCC); Chronic diastolic heart failure ([facility]/HCC); Coronary artery disease involving crooked creek coronary artery of crooked creek heart without angina pectoris ([facility]/HCC); Primary hypertension ([facility]/HCC); Chronic kidney disease, stage 3b ([facility]) ([facility]); Type 2 diabetes mellitus with diabetic chronic kidney disease ([facility]/HCC); Type 2 diabetes mellitus with diabetic cataract ([facility]/HCC) Start: 05-26-2024 End: 05-26-2024 Patient encounter procedure 05/26/2024 9:00 AM EDT Office Visit [facility] [address] [place] [address] Allyssa Baez, JEFFERY [address] [place] [phone] [facility] Start: 04-13-2024 End: 04-13-2024 Patient encounter procedure 04/13/2024 2:00 PM EST Office Visit [facility] [address] [place] [address] Shell Hemphill NP [address] [place] [address] [facility] Start: 01-14-2024 End: 01-14-2024 Patient encounter procedure 01/14/2024 10:30 AM EST Office Visit [facility] [address] [place] [address] Shell Hemphill NP [address] [place] [place] [phone] [facility] Start: 01-09-2024 End: 01-09-2024 Patient encounter procedure [facility] Comment on above: Arrived Start: 10-20-2023 Influenza vaccination Influenza Vaccine (#1) [facility] Start: 10-14-2023 End: 10-14-2023 Patient encounter procedure 10/14/2023 9:00 AM EDT Office Visit [facility] [address] [place] [phone] Shell Hemphill NP [address] [place] [address] Hypercholesteremia (CMS/HCC) (Primary Dx); Hypertensive heart disease with heart failure (CMS/HCC); Chronic fatigue [facility] Comment on above: Hypercholesteremia (CMS/HCC) (Primary Dx ); Hypertensive heart disease with heart failure (CMS/HCC); Chronic fatigue Start: 1957 Pneumococcal Vaccine: 65+ Years (1 of 2 - PCV) Pneumococcal Vaccine: 65+ Years (1 of 2 - PCV) [facility] Start: 1948 Glaucoma screening Diabetes: Retinopathy Screening [facility] Start: 1944 Pneumococcal Vaccine: 65+ Years (1 of 2 - PCV) Pneumococcal Vaccine: 65+ Years (1 of 2 - PCV) [facility] Start: 1938 Hemoglobin A1c measurement Diabetes: Hemoglobin A1C [facility] Comprehensive metabo lic 2000 panel - Serum or Plasma [facility] Immunizations Immunization Date Immunization Notes Care Provider Fa cili 01-11-2021 Pfizer Purple Cap SARS-CoV-2 Vaccination Shell Hemphill NP Work Phone: [facility] 06-30-2020 Pfizer Purple Cap SARS-CoV-2 Vaccination Shell Hemphill LAMINATING PRESS OPERATOR Work Phone: [facility] 06-09-2020 Pfizer Purple Cap SARS-CoV-2 Vaccination Shell Hemphill LAMINATING PRESS OPERATOR Work Phone: [facility] 11-04-2019 influenza, high dose seasonal, preservative-free Shell Hemphill LAMINATING PRESS OPERATOR Work Phone: [facility] 11-04-2019 influenza virus vaccine, unspecified formulation Shell Hemphill LAMINATING PRESS OPERATOR Work Phone: [facility] 04-30-2019 zoster vaccine recombinant Shell Hemphill LAMINATING PRESS OPERATOR Work Phone: [facility] 02-25-2019 zoster vaccine recombinant Shell Hemphill LAMINATING PRESS OPERATOR Work Phone: [facility] 10-27-2018 Seasonal trivalent influenza vaccine, adjuvanted, preservative free Shell Hemphill LAMINATING PRESS OPERATOR Work Phone: [facility] 10-13-2015 influenza, high dose seasonal, preservative-free Shell Hemphill LAMINATING PRESS OPERATOR Work Phone: [facility] Payers Date Payer Category Payer Private Health Insurance [id number] 2005 Medicare [id number] 2004 Medicaid [employer] MEDICARE A DVANTAGE [id number] 5 1959 Medicare [id number] 1959 Self-pay 1959 Unknown [id number] 1938 Unknown [id number] .2.647 1938 Unknown [id number] [id number] .2.647 1938 Unknown [id number] [id number] .2.593 1938 Unknown [id number] [id number] .2.593 1938 Unknown [id number] 2.16.840.1.538603.3.579 .2.593 1938 Unknown [id number] 2.16.840.1.666201.3.579 .2.593 1938 Unknown [id number] 2.16.840.1.122584.3.579 .2.593 1938 Unknown [id number] 2.16.840.1.977691.3.579 .2.593 1938 Unknown [id number] 2.16.840.1.055082.3.579 .2.593 1938 Unknown [id number] 2.16.840.1.493641.3.579 .2.593 1938 Unknown [id number] [id number] .2.593 1938 Unknown [id number] 2.16.840.1.114661.3.579 .2.1259 1938 Unknown [id number] 2.16.840.1.281505.3.579 .2.1259 1938 Unknown [id number] [id number] .2.1259 1938 Unknown [id number] [id number] .2.1259 Social History Date Type Detail Facility Start: 05-21-2023 End: 11-12-2024 Tobacco smoking status NHIS Never smoked tobacco [facility] Start: 05-21-2023 Tobacco use and exposure Smokeless tobacco non-user [facility] Start: 10-14-2023 End: 07-23-2024 Alcoholic beverage intake Lifetime non-drinker (finding) [facility] Start: 10-14-2023 End: 07-23-2024 History of Social function [facility] Start: 10-14-2023 End: 07-23-2024 Tobacco use panel [facility] Start: 1940 Sex assigned at Not on file N [facility] Healthcare Sex Female (finding) [facility] Start: 1940 Sex Assigned At Female F [facility] NEGATED: Highlighted rowStart: NINF History of tobacco use Passive smoker [facility] Functional Status Date Assessment Result Facility 07-23-2024 Patient Health Quest ionnaire 2 item (PHQ-2) [Reported] [facility] Clinical Notes 12-21-2021 to 09-07-2024 Allyssa Baez NP - 07/23/2024 10:59 AM Panfilo Baez NP - 07/23/2024 10:30 AM Panfilo Baez NP - 07/23/2024 6:38 AM Panfilo Baez NP - 07/23/2024 6:37 AM EDTPatient Instructions Note Date & Type Note Facility 09-07-2024 Note [place] [facility] Subjective Jenifer Hernandez is [...] heart failure (CMS/HCC) Coronary artery disease involving crooked creek coronary artery of crooked creek heart without angina pectoris History of coronary [...] respond to it. She was admitted to [facility] with decompensated HF in 05/2018. [...] nor (more content not included)... [facility] 07-23-2024 History of Present illness Narrative [...] Hospitalizations in the last year: no Specialist: [facility] Saúl HCPOA/Living Will: no Concerns: NT in [...] List Items Addressed This Visit HTN (hypertension) ([facility]) Please check blood pressure daily and record DASH diet Limit caffeine Take medication as directed Contact office if chest pain, pressure, dizziness, shortness of breath, swelling legs Recommend slow position changes Current meds: imdur, bblocker, aldactone Chronic diastolic heart failure ([facility]) Managed by [facility] Cardiology Current meds: imdur, b dayna, diuretics Chronic atrial fibrillation, unspecified ([facility]) Current meds: xarelto, b dayna [facility] Cardiology Coronary artery disease involving crooked creek coronary artery of crooked creek heart without angina pectoris ([facility]) Current meds: statin, imdur, b dayna [facility] Cardiology Chronic kidney disease, stage 3b (HCC) ([facility]) Continued monitoring Goals: good BP and DM control Encounter for subsequent annual wellness visit (AWV) in Medicare patient - Primary Reviewed Ht/Wt/BMI Recommend eye exam yearly Recommend dental exams twice a year Balance work/leisure activities Exercises is recommended most days of the week (appropriate as chronic conditions allow) Follow up yearly and prn Type 2 diabetes mellitus with diabetic chronic kidney disease ([facility]) Type 2 diabetes mellitus with diabetic cataract ([facility]) Numbness of fingers of both hands Trial [...] aldactone Associated Problem(s): Coronary artery disease involving crooked creek coronary artery of crooked creek heart without angina pectoris (CMS/HCC) Current meds: statin, imdur, b dayna [facility] Cardiology Associated Problem(s): Chronic diastolic heart failure (CMS/HCC) Managed by [facility] Cardiology Current meds: imdur, b dayna, diuretics Associated Problem(s): Chronic atrial fibrillation, unspecified (CMS/HCC) Current meds: xarelto, b dayna [facility] Cardiology documented in this encounter [facility] 07-23-2024 Instructions Allyssa Baez NP - 07/23/2024 [...] at the pharmacy) documented in this encounter [facility] 05-26-2024 History of Present illness Narrative Pt has been having numbness in all finger types, started in the left hand and has moved to right hand. Pt states she does not have issues with access consultant strength. Pt seen environmental analyst in nov. Not due til her 6 [...] problems. Hypertensive end-organ damage includes kidney disease, CAD/WA and heart failure. Identifiable causes of hypertension [...] HISTORY Past Medical History: Diagnosis Date A-fib ([facility]) High cholesterol ([facility]) History of skin cancer Past Surgical History: [...] List Items Addressed This Visit HTN (hypertension) ([facility]) - Primary Please check blood pressure daily and record DASH diet Limit caffeine Take medication as directed Contact office if chest pain, pressure, dizziness, shortness of breath, swelling legs Recommend slow position changes Current meds: imdur, bblocker, aldactone Chronic diastolic heart failure (CMS/HCC) Managed by [facility] Cardiology Current meds: imdur, b dayna, diuretics Chronic atrial fibrillation, unspecified ([facility]/HCC) Current meds: xarelto, b dayna [facility] Cardiology Coronary artery disease involving crooked creek coronary artery of crooked creek heart without angina pectoris ([facility]/HCC) Current meds: statin, imdur, b dayna [facility] Cardiology Nonrheumatic tricuspid valve regurgitation Per [facility] Cardiology mgmt Pulmonary HTN ([facility]/HCC) Findings confirmed through heart cath Chronic kidney disease, stage 3b (HCC) ([facility]) Continued monitoring Relevant Medications ferrous sulfate (FeroSul) [...] Chronic diastolic heart failure (CMS/HCC) Managed by [facility] Cardiology Current meds: imdur, b dayna, diuretics [...] Associated Problem(s): Nonrheumatic tricuspid valve regurgitation Per [facility] Cardiology mgmt Associated Problem(s): HTN (hypertension) (CMS/[facility]) Please check blood pressure daily and record DASH diet Limit caffeine Take medication as directed Contact office if chest pain, pressure, dizziness, shortness of breath, swelling legs Recommend slow position changes Current meds: imdur, bblocker, aldactone Associated Problem(s): Coronary artery disease involving crooked creek coronary artery of crooked creek heart without angina pectoris (CMS/[facility]) Current meds: statin, imdur, b dayna [facility] Cardiology Associated Problem(s): Chronic atrial fibrillation, unspecified ([facility]) Current meds: xarelto, b dayna [facility] Cardiology documented in this encounter [facility] 05-26-2024 Instructions Allyssa Baez NP - 05/26/2024 9:00 AM EDT No dose changes in medications Schedule Medicare Wellness documented in this encounter [facility] 05-13-2024 Telephone encounter Note Please tell pt that overall her labs are stable With exception of her kidney function which has worsen somewhat. I know cardiology has been adjusting her water pills for her heart failure. We will forward a copy of her kidney function to them to see if they want to make any changes [place] [facility] 05-13-2024 Miscellaneous Notes Please tell pt that overall her labs are stable With exception of her kidney function which has worsen somewhat. I know cardiology has been adjusting her water pills for her heart failure. We will forward a copy of her kidney function to them to see if they want to make any changes [place] documented in this encounter [facility] 01-13-2024 Note [place] [facility] Subjective Jenifer Hernandez is [...] heart failure (CMS/HCC) Coronary artery disease involving crooked creek coronary artery of crooked creek heart without angina pectoris History of coronary [...] respond to it. She was admitted to [facility] with decompensated HF in 05/2018. [...] wes (more content not included)... [facility] 01-09-2024 History of Present illness Narrative [...] kidney disease (HCC) (CMS/HCC) eGFR is 32. 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 Likely r/t HF. Pt states she was unaware of this and has never been referred to or seen nephrology in the past. Referral sent to Nephrology in [place]. Pt did not follow up yet. Images [...] Continue current regimen. CKD: eGFR is 34. 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 Likely r/t HF. Pt states she was unaware of this and has never been referred to or seen nephrology in the past. Referral sent to Nephrology in [place]. Pt did not follow up yet. Review [...] kidney disease (HCC) (CMS/HCC) eGFR is 32. 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 Likely r/t HF. Pt states she was unaware of this and has never been referred to or seen nephrology in the past. Referral sent to Nephrology in [place]. Pt did not follow up yet. documented in this encounter [facility] 12-18-2023 Note [facility] [facility] Subjective Jenifer Hernandez is a 83 y.o. year old female patient being seen for follow-up visit Patient Active Problem List Diagnosis Chronic atrial fibrillation (CMS/HCC) Chronic diastolic congestive heart failure (CMS/HCC) Coronary artery disease involving crooked creek coronary artery of crooked creek heart without angina pectoris History of coronary [...] , Rfl: ergocalciferol (Vitamin D-2) 1.25 MG (51951 Units) capsule, Vitamin D2 1,250 mcg (50,000 [...] [place] (more content not included)... [facility] 10-14-2023 History of Present illness Narrative Associated Problem(s): Stage 3b chronic kidney disease (HCC) (CMS/HCC) eGFR is 34. 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 Likely r/t HF. Pt states she was unaware of this and has never been referred to or seen nephrology in the past. Referral sent to Nephrology in [place]. Consider adding SLGT-2 today. Will discuss with Planning Management It Specialist first. Associated Problem(s): Chronic fatigue Iron deficiency; Taking Ferrous sulfate. Chronic diastolic HF. TSH normal. Associated Problem(s): Hypercholesteremia (CMS/HCC) On Atorvastatin 20mg Denies myalgias; Last lipid panel looks great Continue current regimen. 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 Pt states she was unaware of this and has never been referred to or seen nephrology in the past. Referral sent to Nephrology in [place]. Consider adding SLGT-2 today. Will discuss with Planning Management It Specialist first. Associated Problem(s): HTN (hypertension) (CMS/HCC) Metoprolol [...] who presents for Follow-up (NEW MEDS FROM PROCESSING MGR). HPI HTN: Metoprolol 100mg and Isosorbide 30mg Denies orthostatic changes Denies edema Does not check BP at home; Given BP log today in office. Educated on accurate BP measuring steps. Advised pt to check once per day in the afternoon and bring back to next visit. HF: Follows with Cardiology; [place]. 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 Pt states she was unaware of this and has never been referred to or seen nephrology in the past. Referral sent to Nephrology in [place]. Consider adding SLGT-2 today. Will discuss with Planning Management It Specialist first. Fatigue: Iron deficiency; Taking Ferrous sulfate. [...] ALBUMIN GLOBULIN RATIO 0.8 0.9 Resulting Agency [facility] Narrative Review of Systems Constitutional: Negative for [...] List Items Addressed This Visit HTN (hypertension) ([facility]) Metoprolol 100mg and Isosorbide 30mg Denies orthostatic changes Denies edema Does not check BP at home; Given BP log today in office. Educated on accurate BP measuring steps. Advised pt to check once per day in the afternoon and bring back to next visit. Continue medications as directed. Hypercholesteremia ([facility]) - Primary On Atorvastatin 20mg Denies myalgias; Last lipid panel looks great Continue current regimen. Chronic fatigue Iron deficiency; Taking Ferrous sulfate. Chronic diastolic HF. TSH normal. Hypertensive heart disease with heart failure ([facility]/HCC) Follows with Cardiology; [place]. 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 Pt states she was unaware of this and has never been referred to or seen nephrology in the past. Referral sent to Nephrology in [place]. Consider adding SLGT-2 today. Will discuss with Planning Management It Specialist first. Relevant Medications spironolactone (Aldactone) 25 MG tablet Other Relevant Orders Ambulatory referral to Nephrology Stage 3b chronic kidney disease (HCC) ([facility]) eGFR is 34. 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 Likely r/t HF. Pt states she was unaware of this and has never been referred to or seen nephrology in the past. Referral sent to Nephrology in [place]. Consider adding SLGT-2 today. Will discuss with Planning Management It Specialist first. Relevant Orders Ambulatory referral to Nephrology Other Visit Diagnoses Cerumen debris on tympanic membrane of both ears Relevant Medications carbamide peroxide (Debrox) 6.5 % otic solution documented in this encounter [facility] 10-14-2023 Instructions Shell Hemphill NP [...] sleep per night. documented in this encounter [facility] 09-25-2023 Note [place] [facility] Subjective Jenifer Hernandez is a 83 y.o. year old female patient being seen for follow up [facility] and [facility]. SOB w/ exertion and LE edema has resolved she says. Denies chest pain, palpitations, and bleeding on Xarelto. Had BMP last week. Patient Active Problem List Diagnosis Chronic atrial fibrillation (CMS/HCC) Chronic diastolic congestive heart failure (CMS/HCC) Coronary artery disease involving [place] coronary artery of [place] heart without angina pectoris History of coronary [...] respond to it. She was admitted to [facility] with decompensated HF in 05/2018. [...] picture (more content not included)... [facility] 09-10-2023 Note Patient: Jenifer lorenz Procedure Information Date/Time: 09/10/23 1300 Procedure: Right heart cath - pc approved with [employer] Location: [facility] 3 / [facility] (Cath) Providers: Herber [...] blood products. Additional Equipment Requests [facility] 01-18-2022 Note OPERATIVE NOTE OPERATION DATE: [...] ensuring mobility, phacoemulsification was performed in a khikibn-tje-robnnx-type fashion. After all nuclear material had been [...] the following day for postoperative care. [facility] 01-18-2022 Note HISTORY AND PHYSICAL EXAMINATION [...] go forward with her elective procedure. [facility] 12-21-2021 Note HISTORY AND PHYSICAL EXAMINATION [...] go forward with her elective procedure. [facility] 12-21-2021 Note OPERATIVE NOTE OPERATION DATE: [...] ensuring mobility, phacoemulsification was performed in a nxpeqer-rxc-gblcod-type fashion. After all nuclear material had been [...] the following day for postoperative care. [facility] Evaluation note Diagnosis Hypercholesteremia (CMS/HCC)- Primary [...] aortocoronary bypass status Coronary artery disease involving [place] coronary artery of [place] heart without angina pectoris (CMS/HCC) Chronic atrial [...] (CMS/HCC) Stage 3b chronic kidney disease (HCC) ([facility]CC) [facility] [...] aortocoronary bypass status Coronary artery disease involving [place] coronary artery of [place] heart without angina pectoris (CMS/HCC) Chronic atrial [...] aortocoronary bypass status Coronary artery disease involving [place] coronary artery of [place] heart without angina pectoris (CMS/HCC) Chronic atrial [...] aortocoronary bypass status Coronary artery disease involving [place] coronary artery of [place] heart without angina pectoris (CMS/HCC) Chronic atrial [...] 3b (HCC) (CMS/HCC) Coronary artery disease involving [place] coronary artery of [place] heart without angina pectoris (CMS/HCC) Nonrheumatic tricuspid valve regurgitation Pulmonary HTN (CMS/HCC) Gastroesophageal reflux disease without esophagitis Esophageal reflux Mixed hyperlipidemia (CMS/HCC) Mixed hyperlipidemia Chronic diastolic heart failure (CMS/HCC) Chronic diastolic heart failure documented in this encounter [facility]* Diagnosis Primary hypertension (CMS/HCC)- [...] aortocoronary bypass status Coronary artery disease involving [place] coronary artery of [place] heart without angina pectoris (CMS/HCC) Chronic atrial [...] complications Chronic kidney disease, stage 3b (HCC) ([facility]/HCC) Coronary artery disease involving [place] coronary artery of [place] heart without angina pectoris (CMS/HCC) Nonrheumatic tricuspid valve regurgitation Pulmonary HTN (CMS/HCC) Gastroesophageal reflux disease without esophagitis Esophageal reflux Mixed hyperlipidemia (CMS/HCC) Mixed hyperlipidemia Chronic diastolic heart failure (CMS/HCC) Chronic diastolic heart failure Hypercholesteremia (CMS/HCC) Pure hypercholesterolemia documented in this encounter [facility]* Diagnosis Primary hypertension (CMS/HCC)- [...] aortocoronary bypass status Coronary artery disease involving [place] coronary artery of [place] heart without angina pectoris (CMS/HCC) Chronic atrial [...] 3b (HCC) (CMS/HCC) Coronary artery disease involving [place] coronary artery of [place] heart without angina pectoris (CMS/HCC) Nonrheumatic tricuspid valve regurgitation Pulmonary HTN (CMS/HCC) Gastroesophageal reflux disease without esophagitis Esophageal reflux Mixed hyperlipidemia (CMS/HCC) Mixed hyperlipidemia Chronic diastolic heart failure (CMS/HCC) Chronic diastolic heart failure Encounter for subsequent annual wellness visit (AWV) in Medicare patient- Primary Chronic atrial fibrillation, unspecified (CMS/HCC) Chronic diastolic heart failure (CMS/HCC) Chronic diastolic heart failure Coronary artery disease involving [place] coronary artery of [place] heart without angina pectoris (CMS/HCC) Primary hypertension ([facility]/HCC) Unspecified essential hypertension Chronic kidney disease, stage 3b (HCC) ([facility]/HCC) Type 2 diabetes mellitus with diabetic chronic kidney disease ([facility]/HCC) Type 2 diabetes mellitus with diabetic cataract ([facility]/HCC) Type II or unspecified type diabetes mellitus [...] aortocoronary bypass status Coronary artery disease involving [place] coronary artery of [place] heart without angina pectoris Chronic atrial fibrillation, [...] stage 3b (CMS-HCC) Coronary artery disease involving [place] coronary artery of [place] heart without angina pectoris Nonrheumatic tricuspid valve regurgitation Pulmonary HTN (HCC) Gastroesophageal reflux disease without esophagitis Esophageal reflux Mixed hyperlipidemia Mixed hyperlipidemia Chronic diastolic heart failure (HCC) Chronic diastolic heart failure Encounter for subsequent annual wellness visit (AWV) in Medicare patient- Primary Chronic atrial fibrillation, unspecified (HCC) Chronic diastolic heart failure (HCC) Chronic diastolic heart failure Coronary artery disease involving [place] coronary artery of [place] heart without angina pectoris Primary hypertension Unspecified [...] Admit Date Hyperlipidemia, mixed acute Oct 1:51pm [facility] Work Phone: Reason for referral (narrative)* Consultation (Routine) - Pending Review Specialty Diagnoses / Procedures Referred By Contsu t Referred To Contact Nephrology Diagnoses Hypertensive heart disease with heart failure (CMS/HCC) Stage 3b chronic kidney disease (HCC) (CMS/HCC) Procedures [place] OFFICE/OUTPATIENT [facility] 60 MINUTES Shell Hemphill NP [address] [place] [address] Jimmy Wilde MD [address] [place] [address] Referral ID Status Reason Start Date Expiration Date Visits Requested Visits Authorized [id number] Pending Review Specialty Services Required 10/14/2023 04/11/2024 1 1 Scheduling Instructions Please include OV note from today 10/13 [facility] MikaReason for referral (narrative)No reason for referral information [facility]Gre[facility] Work Phone: Summary Purpose Family History Relationship Condition Age at Onset Recorded Date/T christian mother Diabetes mellitus Unknown Heart disease Unknown Hypertension Unknown father Heart disease Unknown son Diabetes mellitus Unknown Advance Directives Advance Directive Response Recorded Date/ Time Advance Directives No June 12, 019 7:51am Hospital Course Note MR#: [id number] [facility] Pt. Name: Jenifer Hernandez Admitted: [...] content not included)... Note MR#: [id number] I [facility] Pt. Name: Jenifer Hernandez Admitted: 01/05/2019 Discharged: 01/14/2019 Date of : 1940 Physician: Amy Head MD DISCHARGE SUMMARY PRIMARY CARE PHYSICIAN: Edu Odonnell. ADMITTING DIAGNOSES: 1. Acute kidney injury on chronic kidney disease. 2. Drug-induced symptomatic severe bradycardia with hemodynamic compromise. DISCHARGE DIAGNOSES: 1. Drug-induced symptomatic severe bradycardia with hemodynamic compromise. 2. 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 Awcoi-af-jtyzore biventricular systolic and diastolic heart failure exacerbation. [...] not included)... Note MR#: [id number] [facility] Pt. Name: Margot Hernandezte Surgery Date: 12/19/2018 Room #: [id number] Date of : 1940 PROCEDURE NOTE ATTENDING: [...] Procedure Findings Note MR#: [id number] [facility] Pt. Name: Margot Hernandezte Surgery Date: 12/19/2018 Room #: [id number] Date of : 1940 PROCEDURE NOTE ATTENDING: [...] section and content) DATE CREATED AUTHOR 04/10/2019 [facility] DATE CREATED AUTHOR AUTHOR'S ORGANIZ ATION 05/07/2021 [facility] DATE CREATED AUTHOR AUTHOR'S ORGANIZ ATION 02/07/2022 [facility] DATE CREATED AUTHOR AUTHOR'S ORGANIZ ATION 07/24/2024 [facility] EPIC DATE CREATED AUTHOR AUTHOR'S ORGANIZ ATION 09/09/2024 [facility] Reason for Visit (unrecogniz ed section and [...] Care Teams (unrecognized sec tion and content) Radio Antenna Installer Relationship Specialty Start Date End Date Keith Foley MD [address] [place] [address] PCP - General Family Medicine 10/02/23 Shell Hemphill NP [address] [place] [address] Nurse Practitioner Family Medicine 10/02/23 Radio Antenna Installer Relationship Specialty Start Date End Date Keith Foley MD [address] [place] [address] PCP - General Family Medicine 10/02/23 Shell Hemphill NP [address] [place] [address] Nurse Practitioner Family Medicine 10/02/23 Radio Antenna Installer Relationship Specialty Start Date End Date Keith Foley MD [address] [place] [address] PCP - General Family Medicine 10/02/23 Shell Hemphill NP [address] [place] [address] Nurse Practitioner Family Medicine 10/02/23 Radio Antenna Installer Relationship Specialty Start Date End Date Keith Foley MD [address] [place] [address] PCP - General Family Medicine 10/02/23 Shell Hemphill NP [address] [place] [address] Nurse Practitioner Family Medicine 10/02/23 Radio Antenna Installer Relationship Specialty Start Date End Date Keith Foley MD [address] [place] [address] PCP - General Family Medicine 10/02/23 Shell Hemphill NP [address] [place] [address] Nurse Practitioner Family Medicine 10/02/23 Radio Antenna Installer Relationship Specialty Start Date End Date Keith Foley MD [address] [place] [address] PCP - General Family Medicine 10/02/23 Shell Hemphill NP [address] [place] [address] Nurse Practitioner Family Medicine 10/02/23 Radio Antenna Installer Relationship Specialty Start Date End Date Keith Foley MD [address] [place] [address] PCP - General Family Medicine 10/02/23 Shell Hemphill NP [address] [place] [address] Nurse Practitioner Family Medicine 10/02/23 Radio Antenna Installer Relationship Specialty Start Date End Date Keith Foley MD [address] [place] [address] PCP - General Family Medicine 10/02/23 Shell Hemphill NP [address] [place] [address] Nurse Practitioner Family Medicine 10/02/23 Radio Antenna Installer Relationship Specialty Start Date End Date Keith Foley MD [address] [place] [address] PCP - General Family Medicine 10/02/23 Shell Hemphill NP [address] [place] [address] Nurse Practitioner Family Medicine 10/02/23 Radio Antenna Installer Relationship Specialty Start Date End Date Keith Foley MD [address] [place] [address] PCP - General Family Medicine 10/02/23 Shell Hemphill NP [address] [place] [address] Nurse Practitioner Family Medicine 10/02/23 Radio Antenna Installer Relationship Specialty Start Date End Date Keith Foley MD [address] [place] [address] PCP - General Family Medicine 10/02/23 Shell Hemphill NP [address] [place] [address] Nurse Practitioner Family Medicine 10/02/23 Radio Antenna Installer Relationship Specialty Start Date End Date Keith Foley MD [address] [place] [address] PCP - General Family Medicine 10/02/23 Shell Hemphill NP [address] [place] [address] Nurse Practitioner Family Medicine 10/02/23 Radio Antenna Installer Relationship Specialty Start Date End Date Keith Foley MD [address] [place] [address] PCP - General Family Medicine 10/02/23 Shell Hemphill NP [address] [place] [address] Nurse Practitioner Family Medicine 10/02/23 Radio Antenna Installer Relationship Specialty Start Date End Date Keith Foley MD [address] [place] [address] PCP - General Family Medicine 10/02/23 Shell Hemphill NP [address] [place] [address] Nurse Practitioner Family Medicine 10/02/23 Radio Antenna Installer Relationship Specialty Start Date End Date Keith Foley MD [address] [place] [address] PCP - General Family Medicine 10/02/23 Shell Hemphill NP [address] [place] [address] Nurse Practitioner Family Medicine 10/02/23 Radio Antenna Installer Relationship Specialty Start Date End Date Keith Foley MD [address] [place] [address] PCP - General Family Medicine 10/02/23 Shell Hemphill NP [address] [place] [address] Nurse Practitioner Family Medicine 10/02/23 Team Status: [...] ON THE PRIMARY CLINICAL RECORDS. [facility] [employer] [facility]. provides no warranty or guarantee of the accuracy or completeness of information in this document.
[2024-11-20 09:17] LABS: Hematocrit 40.0 % (36.0-48.0); Hemoglobin 13.0 g/dL (12.0-16.0); Immature Granulocytes Abs Auto 0.02 10^3/uL (0.00-0.03); Immature Granulocytes Pct Auto 0.3 % (0.0-0.5); Lymphocytes Absolute Auto 1.2 10^3/uL (1.2-3.8); Mean Corpuscular HGB Conc 32.5 g/dL (29.9-35.2); Mean Corpuscular Hemoglobin 32.9 pg (26.7-34.0); Mean Corpuscular Volume 101.3 fL (81.0-99.0); Platelet Count 170 10^3/uL (150-450); Red Blood Count 3.95 10^6/uL (4.20-5.40); White Blood Count 7.0 10^3/uL (4.0-11.0)
[2024-11-20 09:27] LABS: Alanine Aminotransferase 28 U/L (14-59); Albumin Globulin Ratio 0.9; Albumin Level 4.0 g/dL (3.4-5.0); Alkaline Phosphatase 110 U/L (46-116); Anion Gap 13.5; Aspartate Amino Transferase 20 U/L (15-37); Blood Urea Nitrogen 41.0 mg/dL (7.0-18.0); Calcium 9.5 mg/dL (8.5-10.1); Carbon Dioxide 31.4 mmol/L (21.0-32.0); Chloride 101 mmol/L (98-107); Estimated GFR (African America 37 (>=60 mL/min/1.73m^2); Estimated GFR (Non-African Ame 31 (>=60 mL/min/1.73m^2); Globulin 4.6 g/dL; Glucose 121 mg/dL (74-106); Potassium 3.9 mmol/L (3.5-5.1); Sodium 142 mmol/L (136-145); Total Protein 8.6 g/dL (6.4-8.2)
[2024-11-20 09:30] LABS: Cholesterol 123 mg/dL (<=200); HDL Cholesterol 63 mg/dL (40-60); Triglycerides 56 mg/dL (<=150); VLDL CHOLESTEROL 11.2 mg/dL
== END 2024-11-20 08:48 | disposition home or self-care (01) ==
LOC: LAB 08:49
PROVIDERS: PCP Family Medicine; Visit Provider Family Medicine
DX: I12.9 Hypertensive chronic kidney disease with stage 1 through stage 4 chronic kidney disease, or unspecified chronic kidney disease (principal); E78.2 Mixed hyperlipidemia; I48.91 Unspecified atrial fibrillation; D50.9 Iron deficiency anemia, unspecified; N18.9 Chronic kidney disease, unspecified; E11.9 Type 2 diabetes mellitus without complications
CPT/HCPCS: 36415; 80053; 80061; 83036; 85025

== ENCOUNTER 2024-12-15 13:43 | Outpatient (OUT) | payer MEDICARE, OTHER, SELFPAY ==
--- OUTSIDE RECORDS SUMMARY | 2024-12-15 13:47 | XMS_ITS | Clinical Summary ---
Author Organization [facility] Address [address] [place] [address] Care Team Providers Care Slagger Name Role Phone Keith Foley MD Primary Care Provider [phone] Sarah Hemphill PERSONALIZED LIVING MANAGER NURSE Unavailable [phone] Allergies Active AllergyReactionsCriticalityNoted DateCommentsPenicillin 01/18/2019Sulfa Wccqdslcwjn64/01/2019 Medications MedicationSigDispense QuantityRefillsLast FilledStart DateEnd DateStatus rivaroxaban (Xarelto) 15 MG tablet Take 15 mg by mouth in the morning. Take with food..Active bumetanide (Bumex) 2 MG tablet Indications:Heart FailureTake 2 mg by mouth in the morning and 2 mg before bedtime. Taking 3mg am and 2mg in the pm.Active magnesium oxide (Mag-Ox) 400 mg tablet 400 mg in the morning.Active potassium chloride CR (Klor-Con M20) 20 MEQ ER tablet Take 20 mEq by mouth in the morning. Do not crush or chew..Active albuterol HFA (ProAir HFA) 90 mcg/act inhaler Inhale 2 puffs every 4 (four) hours if needed for shortness of breathActive pantoprazole (ProtoNix) 40 MG EC tablet Take 40 mg by mouth in the morning. Take before meals.Active isosorbide mononitrate ER (Imdur) 30 MG 24 hr tablet Take 30 mg by mouth in the morning.05/06/2023ctive spironolactone (Aldactone) 25 MG tablet Indications:Hypertensive heart disease with heart failure (HCC)Take 0.5 tablets (12.5 mg) by mouth in the morning. 15 tablet 11010/14/2023ctive atorvastatin (Lipitor) 20 MG tablet Indications:HypercholesteremiaTake 1 tablet (20 mg) by mouth in the evening 90 tablet 5Active cyanocobalamin (Vitamin B-12) 1000 MCG tablet Take 1,000 mcg by mouth DailyActive metoprolol tartrate (Lopressor) 100 MG tablet Indications:Chronic diastolic heart failure (HCC)Take 1.5 tablets (150 mg) by mouth in the morning and 1.5 tablets (150 mg) before bedtime. 270 tablet 5Active Active Problems ProblemNoted DateDiagnosed DateEncounter for subsequent annual wellness visit (AWV) in Medicare mnllszy5807/23/2024 Assessment & Plan (07/23/2024 6:38 AM EDT): Reviewed Ht/Wt/BMI Recommend eye exam yearly Recommend dental exams twice a year Balance work/leisure activities Exercises is recommended most days of the week (appropriate as chronic conditions allow) Follow up yearly and prn Type 2 diabetes mellitus with diabetic chronic kidney cpijoms9807/23/2024Type 2 diabetes mellitus with diabetic dnltioip32/05/2025Numbness of fingers of both hands07/23/2024 Assessment & Plan (07/23/2024 10:59 AM EDT): Trial vit b 12 supplement 1,0000 mcg daily Type 2 diabetes mellitus without dkcllgmxuhluw71/08/2025 Assessment & Plan (05/26/2024 10:12 AM EDT): No current medications are being taken A1c: 6.3% 05/26/24 Mixed aghhmwgdrnvtkg88/24/2025 Assessment & Plan (05/26/2024 6:13 AM EDT): On statin therapy Check labs yearly and prn dose changes Gastroesophageal reflux disease without lumhgudobpf51/24/2025 Assessment & Plan (05/26/2024 6:12 AM EDT): Recommendations: freq small meals, nothing to eat or drink at least 2 hours prior to bed, limit caffeine, alcohol, as well as spicy foods Meds to limit or avoid if possible: NSAIDS Elevate HOB if possible Current meds: pantoprazole Chronic kidney disease, stage 3b08/ Assessment & Plan (07/23/2024 6:37 AM EDT): Continued monitoring Goals: good BP and DM control Assessment & Plan (05/26/2024 6:12 AM EDT): Continued monitoring Assessment & Plan (01/09/2024 2:53 PM EST): eGFR is 32. Content Checker of CKD stage 3; Has been trending downwards for quite sometime. Likely r/t HF. Pt states she was unaware of this and has never been referred to or seen nephrology in the past. Referral sent to Nephrology in [place]. Pt did not follow up yet. Assessment & Plan (10/14/2023 9:47 AM EDT): eGFR is 34. Content Checker of CKD stage 3; Has been trending downwards for quite sometime. Likely r/t HF. Pt states she was unaware of this and has never been referred to or seen nephrology in the past. Referral sent to Nephrology in [place]. Consider adding SLGT-2 today. Will discuss with Supervisor [employer] first. Acute on chronic diastolic HF (heart failure)05/22/2023 Assessment & Plan (05/22/2023 4:54 PM EDT): Acute on chronic diastolic HF - still volume overload on exam. Improved from before when she was seen past week. C/w increased dose of bumex 4 q12. Follow up in one month, repeat BNP, BMP ordered Chronic diastolic heart vfjkzwv1204/25/2023 Assessment & Plan (07/23/2024 6:36 AM EDT): Managed by [facility] Cardiology Current meds: imdur, b dayna, diuretics Assessment & Plan (05/26/2024 6:15 AM EDT): Managed by [facility] [...] regimen based on the blood work Chronic hojdskq6304/25/2023 Assessment & Plan (10/14/2023 9:45 AM EDT): Iron deficiency; Taking Ferrous sulfate. Chronic diastolic HF. TSH normal. Assessment & Plan (04/25/2023 11:57 AM EST): Reports chronic fatigue, low energy. Could be due to chronic Afib Check TSH Shortness of eqhwgz5404/25/2023 Assessment & Plan (05/22/2023 4:52 PM EDT): [...] assess cardiac structure Also ordered labs. HTN (hypertension)03/19/2023 Assessment & Plan (07/23/2024 6:37 AM EDT): [...] similar regimen. History of coronary artery bypass graft02/01/2022Mitral valve regurgitation 02/01/2022Nonrheumatic tricuspid valve tgleqqbidxwbh73/15/2022 Assessment & Plan (05/26/2024 6:11 AM EDT): Per [facility] Cardiology mgmt Pulmonary HTN02/01/2022 Assessment & Plan (05/26/2024 6:11 AM EDT): Findings confirmed through heart cath Chronic atrial fibrillation, dfkyussrkpj81/28/2019 Assessment & Plan (07/23/2024 6:36 AM EDT): Current meds: xarelto, b dayna [facility] Cardiology Assessment & Plan (05/26/2024 6:10 AM EDT): Current meds: xarelto, b dayna [facility] Cardiology Assessment & Plan (04/25/2023 11:59 AM EST): Chronic Afib, persistent, HR remains controlled On Xarelto for AC Previous hx of failed cardioversion. Patient has not seen cardiology for over 2 years now. Will refer to [facility] cardiology. Hypertensive heart disease with heart lpgbtml2401/15/2019 Assessment & Plan (10/14/2023 9:44 AM EDT): Follows with Cardiology; [facility]. Spironlactone Isosorbide Metoprolol Kidney function is very low, insurance account representative of CKD stage 3; Likely r/t HF. Pt states she was unaware of this and has never been referred to or seen nephrology in the past. Referral sent to Nephrology in [place]. Consider adding SLGT-2 today. Will discuss with Supervisor [employer] first. Assessment & Plan (04/25/2023 12:03 PM EST): Hx with HFpEF. Patient has chronic diastolic HF. She is SOB, worse on exertion, reports fatigue, low energy Labs ordered to r/o Anemia, electrolyte abnormalities. Will also get an ECHO to assess cardiac structure. Coronary artery disease involving [place]om[place] coronary artery of [place]ominee heart without angina ympryixg91/01/2019 Overview (04/25/2023): Last Assessment & Plan: Coronary artery disease is continue risk factor modifications- heart healthy diet, regular exercise as tolerated and continue all medications. Assessment & Plan (07/23/2024 6:36 AM EDT): Current meds: statin, imdur, b dayna [facility] Cardiology Assessment & Plan (05/26/2024 6:10 AM EDT): Current meds: statin, imdur, b dayna [facility] Cardiology Assessment & Plan (04/25/2023 12:01 PM EST): S/p CABG. Denies CP, bt reports exertional Dyspnea Check labs C/w ASA, BB, statin. Resolved Problems ProblemNoted DateDiagnosed DateResolved DateOther xlhdgrywudigzn09/07/2024 04/13/2024 Assessment & Plan (01/09/2024 2:41 PM EST): Currently taking atorvastatin 20mg Denies any myalgias. Continue current regimen. Assessment & Plan (04/25/2023 11:58 AM EST): On Lipitor, check lipid panel Establishing care with new doctor, encounter for/ Assessment & Plan (04/25/2023 11:58 AM EST): New Patient, here to establish care. Reviewed medical, surgical and social hx. Reviewed available old records. Reviewed and updated medication list. Xdgpaordfsizagiwzi65/30/202402/ Assessment & Plan (10/14/2023 9:45 AM EDT): On Atorvastatin 20mg Denies myalgias; Last lipid panel looks great Continue current regimen. Immunizations ImmunizationAdministration DatesNext DueInfluenza, High Dose Seasonal, Preservative Free11/04/2019,10/13/2015Influenza, trivalent, qlrelcwazp23/09/2019 Pfizer Purple Cap SARS-CoV-2 Mvwrbslmekf81/24/2021,06/30/2020,06/09/2020Zoster, Zzakadfjgwo97/12/2020,02/25/2019 Family History Medical HistoryRelationNameCommentsDiabetesFatherHTNFatherHeart diseaseFather DiabetesMotherHTNMotherHeart diseaseMotherRelationNameStatusCommentsFather DeceasedMotherDeceased Social History Tobacco UseTypesPacks/DayYears UsedDateSmoking Tobacco: NeverPassive Smoke Exposure: NeverSmokeless Tobacco: Never Tobacco Cessation:Counseling Given: Not Answered Alcohol UseStandard Drinks/WeekCommentsNever0 (1 standard drink = 0.6 oz pure alcohol)PHQ-2AnswerDate RecordedPatient Health Questionnaire-2 Prrij837 CommentsNoSex and Gender InformationValueDate RecordedSex Assigned at BirthNot on fileLegal KfsNfdtvy95/01/2023 8:34 PM EDTGender IdentityNot on file Sexual OrientationNot on file Last Filed Vital Signs Vital SignReadingTime TakenCommentsBlood Qdwxwpsr665/72007/23/2024 10:31 AM EDT Uebrr688707/23/2024 10:31 AM XMZUdcjuszopgm21.8 ??C (98.3 ??F)07/23/2024 10:31 AM EDTRespiratory Qujb919707/23/2024 10:31 AM EDTOxygen Hzjhdsimzy23%07/23/2024 10:31 AM EDTInhaled Oxygen Concentration--Umbnwe33.6 kg (160 lb)07/23/2024 10:31 AM OQYJdraer875.6 cm (5' 4 )01/09/2024 2:06 PM ESTBody Mass Index27.4601/09/2024 2:06 PM EST Plan of Treatment Not on file Insurance [address] [place] [address] Care Teams Team MemberRelationshipSpecialtyStart DateEnd Date Keith Foley MD PCP - GeneralFamily Medicine10/02/23 Sarah Hemphill NP Nurse PractitionerFamily Medicine10/02/23
--- OUTSIDE RECORDS SUMMARY | 2024-12-15 13:48 | XMS_ITS | Clinical Summary ---
Author Organization [facility] Address [address] [place] [address] Care Team Providers Care Subassembly Assembler Name Role Phone Allyssa Baez MD Primary Care Provider [phone] Allergies Active AllergyReactionsCriticalityNoted DeozVkcbkdieStnjufwspc43/15/2022 Jhfgmlxwowy12/15/2022ulfa (Sulfonamide Antibiotics)02/01/2022 Medications MedicationSigDispense QuantityRefillsLast FilledStart DateEnd DateStatus atorvastatin (Lipitor) 20 mg tablet atorvastatin 20 mg tablet take 1 tablet by mouth once dailyActive ferrous sulfate 325 (65 Fe) MG tablet FeroSul 325 mg (65 mg iron) tablet take 1 tablet by mouth once dailyActive magnesium oxide (Mag-Ox) 400 mg (241.3 mg magnesium) tablet magnesium oxide 400 mg (241.3 mg magnesium) tablet take 1 tablet by mouth once dailyActive metoprolol tartrate (Lopressor) 100 mg tablet metoprolol tartrate 100 mg tablet TAKE 1 AND 1/2 TABLETS BY MOUTH TWICE A DAYActive pantoprazole (ProtoNix) 40 mg EC tablet Take 40 mg by mouth in the morning.11/27/2021ctive albuterol 90 mcg/actuation inhaler ProAir HFA 90 mcg/actuation aerosol inhalerActive ergocalciferol (Vitamin D-2) 1.25 MG (45777 Units) capsule Vitamin D2 1,250 mcg (50,000 unit) capsuleActive spironolactone (Aldactone) 25 mg tablet Indications:Chronic diastolic congestive heart failure (CMS/HCC),Pulmonary hypertension (CMS/HCC)Take 0.5 tablets (12.5 mg) by mouth in the morning. 45 tablet /5Active isosorbide mononitrate ER (Imdur) 30 mg 24 hr tablet Indications:Coronary artery disease of [place] artery of [place] heart with stable angina pectorisTake 1 tablet (30 mg) by mouth once daily as directed. Do not crush or chew. 90 tablet 303/8479286Active rivaroxaban (Xarelto) 15 mg tablet Indications:Permanent atrial fibrillation (CMS/HCC)Take 1 tablet (15 mg) by mouth daily with evening meal. Take with food. 30 tablet 11085Active potassium chloride CR (Klor-Con M20) 20 mEq ER tablet Indications:Acute combined systolic and diastolic heart failure (CMS/HCC)Take 1 tablet (20 mEq) by mouth once daily as directed. 90 tablet 3095Active bumetanide (Bumex) 2 mg tablet Indications:Chronic diastolic congestive heart failure (CMS/HCC),Pulmonary hypertension (CMS/HCC)Take 1.5 tablets (3 mg) by mouth two times daily. 270 tablet 310510/6Active bumetanide (Bumex) 2 mg tablet Indications:Chronic diastolic congestive heart failure (CMS/HCC)Take 1.5 tablets in the morning, and take 1 tablet in the evening 225 tablet 30751Discontinued(Dose adjustment) Active Problems ProblemNoted DateDiagnosed DateNumbness of fingers of both hands07/23/2024Type 2 diabetes mellitus with diabetic /05/2025Type 2 diabetes mellitus without kcnhvpahoieeq59/08/2025Gastroesophageal reflux disease without zwttpoeovrd54/24/2025Stage 3b chronic kidney bmkpdeo2310/14/2023 Overview (12/18/2023): Last Assessment & Plan: eGFR is 34. [employer] of CKD stage 3; Has been trending downwards for quite sometime. Likely r/t HF. Pt states she was unaware of this and has never been referred to or seen nephrology in the past. Referral sent to Nephrology in [place]. Consider adding SLGT-2 today. Will discuss with [facility] first. Pulmonary xgdejutrrlqc96/26/2024KD (chronic kidney disease)05/06/2023hronic qvqqelz02 Overview (05/06/2023): Last Assessment & Plan: Reports chronic fatigue, low energy. Could be due to chronic Afib Check TSH Establishing care with new doctor, encounter for Overview (05/06/2023): Last Assessment & Plan: New Patient, here to establish care. Reviewed medical, surgical and social hx. Reviewed available old records. Reviewed and updated medication list. Shortness of prsrgi14 Overview (05/06/2023): Last Assessment & Plan: SOB, worse on exertion, associated with orthopnea. Admits to not using her water pill regularly. Hx of Chronic diastolic HF, mitral regurg, CAD Last echo in 2019. Will order 2D ECHO to assess cardiac structure Also ordered labs. HTN (hypertension) Overview (05/06/2023): Last Assessment & Plan: At goal. C/w similar regimen. Ppzxoszyrmdppxrqez53/30/202403/18/2024History of coronary artery bypass graft 02/01/2022ulmonary HTN02/01/2022Nonrheumatic tricuspid valve regurgitation 02/01/2022Mitral valve hithjyglkvyjc28/15/2022Hypertensive heart disease with heart zdnjyap11 Overview (05/06/2023): Last Assessment & Plan: Hx with HFpEF. Patient has chronic diastolic HF. She is SOB, worse on exertion, reports fatigue, low energy Labs ordered to r/o Anemia, electrolyte abnormalities. Will also get an ECHO to assess cardiac structure. Chronic atrial zwdgmrzkyhoz44/01/2019 Assessment & Plan (02/03/2022 7:27 AM EST): YLE2OS9-VMBj= 4 -rate controlled on metoprolol 100mg BID -tolerating xarelto 15mg, continue Chronic diastolic congestive heart jbjjskx0506/18/2018 Assessment & Plan (02/03/2022 7:35 AM EST): Diastolic Heart failure -[facility] II today -Continue GDMT- metoprolol, lipitor, bumex, Diuretic therapy - bumex 3mg bid -Monitor daily weights, I&O -fluid restriction: instructed to minimize to 1.5-2L/day, renal function and electrolytes -she is instructed to minimize salt to 2g daily -she is to report sudden weight gain, shortness of breath or increase in swelling immediately to beseen sooner than 6 weeks Coronary artery disease involving [place] coronary artery of [place] heart without angina jeaywpwl57/01/2019 Assessment & Plan (02/01/2022 3:27 PM EST): Coronary artery disease is continue risk factor modifications- heart healthy diet, regular exercise as tolerated and continue all medications. Encounters DateTypeDepartmentCare FkdqRsvacoadncb11/06/2025 2:00 PM EDTOffice Visit [address] [id number] Leo Flores MD Chronic diastolic congestive heart failure (CMS/HCC) (Primary Dx); Nonrheumatic tricuspid valve regurgitation; Pulmonary hypertension (CMS/HCC); Nonrheumatic mitral valve regurgitation; Permanent atrial fibrillation (CMS/HCC); Coronary artery disease involving [place] coronary artery of [place] heart without angina pectoris; History of coronary artery bypass surgery; Primary hypertension; Stage 3b chronic kidney disease (CMS/HCC)10/26/2024Ref[place] [address] [facility] [place] [address] Radha Lord MA Acute combined systolic and diastolic heart failure (CMS/HCC)10/08/2024[facility] [address] [place] [phone] Radha Lord MA Permanent atrial fibrillation (CMS/HCC)from Last 3 Months Family History Medical HistoryRelationNameCommentsStrokeBrotherpacemakerFatherRelationName StatusCommentsBrotherFatherDeceasedMotherDeceased Social History Tobacco UseTypesPacks/DayYears UsedDateSmoking Tobacco: NeverSmokeless Tobacco: Never Tobacco Cessation:Counseling Given: Not Answered Alcohol UseStandard Drinks/WeekCommentsNot Currently0 (1 standard drink = 0.6 oz pure alcohol)UT Safety & EnvironmentAnswerDate RecordedFear of Current or Ex-PartnerNot on file04/11/2023Emotionally AbusedNot on file04/11/2023hysically AbusedNot on file04/11/2023Sexually AbusedNot on file04/11/2023hysically or Sexually AbusedNot on file04/11/2023CommentsUnknownSex and Gender InformationValueDate RecordedSex Assigned at FjsboZvjsge45/09/2025 3:32 PM EDT Legal GwdVhbgxa38/29/2022 10:16 PM EDTGender JhezhthxRsmkth36/09/2025 3:32 PM EDTSexual OrientationHeterosexual or Khuhvhwd13/09/2025 3:32 PM EDT Last Filed Vital Signs Vital SignReadingTime TakenCommentsBlood Fstmkuoh613/6510 2:19 PM EDT Crdly417711/23/2024 2:19 PM EDTTemperature--Respiratory Zmel8839 3:45 PM EDTOxygen Knmlgyeszx74%11/23/2024 2:19 PM EDTInhaled Oxygen Concentration-- Ttiqep84.4 kg (153 lb)11/23/2024 2:19 PM NAQFlnhnm967.6 cm (5' 4 )11/23/2024 2:19 PM EDTBody Mass Index26.261 2:19 PM EDT Plan of Treatment Health MaintenanceDue DateLast DoneCommentsDiabetes: Hemoglobin A1C1938 Medicare Annual Wellness (AWV)1938Diabetes: Retinopathy Screening 1948Depression Uxwplvecm30/29/1951iabetes: Urine Protein Screening 03/29/1958Pneumococcal Vaccine: 50+ Years (1 of 2 - PCV)8Adult Tetanus 1960Fall Risk Zddkqsboq02/29/2004COVID-19 Vaccine ( - 2024- season) 511/, 06/30/2020, 06/09/2020Influenza Vaccine (#1)2024 11/04/2019, 10/27/2018, 10/13/2015Zoster HaiutkdiVjujknuvz79/12/2020, 02/25/2019 HIB VaccinesAged OutNo longer eligible based on patient's age to complete this topicHPV VaccinesAged OutNo longer eligible based on patient's age to complete this topicIPV VaccinesAged OutNo longer eligible based on patient's age to complete this topicMeningococcal B VaccineAged OutNo longer eligible based on patient's age to complete this topicMeningococcal VaccineAged OutNo longer eligible based on patient's age to complete this topicRotavirus VaccinesAged Out No longer eligible based on patient's age to complete this topic Insurance Care Teams Team MemberRelationshipSpecialtyStart DateEnd Date Allyssa Baez MD [address] [place] [address] PCP - GeneralNurse Practitioner09/07/24
--- OUTSIDE RECORDS SUMMARY | 2024-12-15 14:03 | XMS_ITS | CCD ---
Author Organization [facility] CliniSywi Care Team Providers Care Can Inspector Name Role Phone EDU ODONNELL Referring Unavailable HOUSE, EDU Primary Care Unavailable ALLYERASTO Lim Admitting Unavailable AJ, FLORENTINO Attending Unavailable [place] Procedure Practitioner Unavailab le UNKNOWN, PROVIDER Surgeon Unavailable [place] Procedure Practitioner Unavailab le NASHERRY DELGADO Surgeon Unavailable [place] Procedure Practitioner Unavailab le [...] Attending Unavailable MISC, DR DOCTOR Consulting Unavailable [facility] Admitting Unavailable [place], DR SALAMANCA Primary Care Unavailable Keith Foley MD Primary Care Provider [phone] Kanchan BANK TELLER, Shell Unavailable [phone] Kanchan BANK TELLER, Shell Unavailable ALLYSSA BAEZ Attending Unavailable ALLYSSA BAEZ Attending Unavailable SHELL HEMPHILL Attending UnavailSHELL Lester Attending Unavailstefan e Joi Guajardo DO Primary Care Provider BennettJoi sandhu DO Attending Provider HERBER FLORES Attending Unavailable HERBER FLORES Attending Unavailable BIRDIE CHACON Attending Unavailable HERBER FLORES Attending Unavailable Allergies Allergy ClassificationReported Allergen(s)Allergy TypeDate of OnsetReaction(s) Facility (3 sources)FurosemideDrug Wmvohpd13-49-4716Ydc [facility] Repository (3 sources)Penicillins; Translations: [PENICILLINS]Drug allergy (disorder) 37-85-2120BtpySfnUniversity Hospitals Health System Repository (4 sources)Sulfonamides (Antibiotic); Translations: [SULFA (SULFONAMIDE ANTIBIOTICS)]Drug allergy (disorder)09-86-6425BrtmZflUniversity Hospitals Health System Repository (1 source)PenicillinDrug AllergyThe [facility] Repository (20 sources)Penicillin GDrug Ojrfbla46-33-7858[facility] Work Phone: (20 sources)Sulfonamides (Antibiotic)Drug Rohfdeugcxv75-61-1502JH[facility] (1 source)Furosemide; Translations: [FUROSEMIDE]Drug Ekkfgwz38-41-2162BnmeyyxpnpMercy Health [facility]iff[facility] Repository Medications Current Medications MedicationDrug Class(es)DatesSig (Normalized)Sig (Original)[id number] 200 actuat albuterol 0.09 mg/actuat metered dose inhaler (20 sources)beta2-Adrenergic AgonistStart: 61-95-0714tydf 1 puff(s) by inhalation every six hours as neededAlbuterol Sulfate 90 mcg/actuation HFA aerosol inhaler Active 2 PUFF INHALATION Every 6 hours as needed November 12, 2024 12:00am Complies with drug therapytake 2 puff(s) by inhalation every four hoursalbuterol HFA (ProAir HFA) 90 mcg/act inhaler Inhale 2 puffs every 4 (four) hours if needed for shortness of breath Activeatorvastatin 20 mg oral tablet (20 sources)HMG-CoA Reductase InhibitorStart: 37-73-4539mzzk 1 tablet by mouth once daily in the eveningAtorvastatin 20 mg tablet Active 20 MG PO Every evening October 29, 2024 12:00am Complies with drug therapyStart: 11-25-2023 End: 58-85-7632srya 1 tablet by mouth in the eveningatorvastatin (Lipitor) 20 MG tablet Indications: Hypercholesteremia Take 1 tablet (20 mg) by mouth in the evening 90 tablet 1 06/23/2024 09/21/2024 Activetake 1 tablet by mouth in the morningatorvastatin (Lipitor) 20 MG tablet Take 20 mg by mouth in the morning. Activebumetanide 2 mg oral tablet (20 sources)Loop DiureticStart: 08-08-0759ppgc 1 tablet by mouth twice daily Bumetanide 2 mg tablet Active 2 MG PO Twice daily November 12, 2024 12:00am Complies with drug therapytake 1 tablet by mouth in the morning, then take 1 tablet by mouth at bedtime, then take 3 mg by mouth in the morning, then take 1 tablet by mouth in the eveningbumetanide (Bumex) 2 MG tablet Indications: Heart Failure Take 2 mg by mouth in the morning and 2 mg before bedtime. Taking 3mg am and 2mg in the pm. Activecarbamide peroxide 65 mg/ml otic solution (2 sources)Start: 10-14-2023 End: 79-04-3251qtkquiyph peroxide (Debrox) 6.5 % otic solution Indications: Cerumen debris on tympanic membrane ofboth ears Administer 3-5 drops into affected ear(s) in the morning and 3-5 drops before bedtime. Doall this for 4 days. 15 mL 10/14/2023 10/18/2023 Activeferrous sulfate 325 mg oral tablet (20 sources)Start: 58-97-8910rfph 1 tablet by mouth once dailyFerrous Sulfate 325 mg (65 mg iron) tablet Active 325 MG PO Daily November 11, 2024 12:00am Complies with drug therapyStart: 05-26-2024 End: 91-66-9825meaf 1 tablet by mouth at mealtimeferrous sulfate (FeroSul) 325 (65 Fe) MG tablet Indications: Chronic kidney disease, stage 3b (CMS-HCC) Take 1 tablet (325 mg) by mouth in the morning. Take with meals. 90 tablet 1 05/26/2024 08/24/2024 Cstrsn36 hr isosorbide mononitrate 30 mg extended release oral tablet (20 sources)Nitrate VasodilatorStart: 05-06-2023 End: 86-04-6358vhep 1 tablet by mouth in the morning, then take 1 tablet by mouth every twenty-four hoursisosorbide mononitrate ER (Imdur) 30 MG 24 hr tablet Take 30 mg by mouth in the morning. 05/06/2023ctiveisosorbide dinitrate 30 mg oral tablet (1 source)Nitrate VasodilatorStart: 66-10-5355xorn 1 tablet by mouth twice daily Isosorbide Dinitrate 30 mg tablet Active 30 MG PO Twice daily November 11, 2024 12:00am allow nitrate-free interval of 12-14 hrs per 24-hr period Complies with drug therapyMagnesium Aspart,Citrate,Oxide 400 mg magnesium capsule (1 source)Start: 74-49-9823whls 1 capsule by mouth once dailyMagnesium Aspart,Citrate,Oxide 400 mg magnesium capsule Active 400 MG PO daily November 122:00am Complies with drug therapyMagnesium Oxide (20 sources) End: 18-75-1079hmos 1 tablet by mouth once dailymagnesium oxide (Mag-Ox) 400 MG tablet Take 400 mg by mouth Daily 10/14/2023 Discontinued (Duplicate order) magnesium oxide (Mag-Ox) 400 mg tablet 400 mg in the morning. Vfaeug24 hr metoprolol succinate 100 mg extended release oral tablet (20 sources)beta-Adrenergic BlockerStart: 05-66-5679bbtr 1 tablet by mouth once dailyMetoprolol Succinate 100 mg tablet extended release 24 hr Active 100 MG PO Daily November 11, 2024 12:00am Complies with drug therapyStart: 02-24-2024 End: 25-63-6419yqdg 1.5 tablets by mouth in the morningmetoprolol tartrate (Lopressor) 100 MG tablet Indications: Chronic diastolic heart failure (HCC) Fernando e 1.5 tablets (150 mg) by mouth in the morning and 1.5 tablets (150 mg) before bedtime. 270 tablet 1 07/30/2024 01/26/2025 ActiveStart: 08-12-2023 End: 21-13-2922cynk 1.5 tablets by mouth in the morningmetoprolol tartrate (Lopressor) 100 MG tablet Indications: Chronic diastolic heart failure (CMS/HCC) Take 1.5 tablets (150 mg) by mouth in the morning and 1.5 tablets (150 mg) before bedtime. 270 tablet 1 08/12/2023 02/20/2024 Discontinued (Reorder) pantoprazole 40 mg delayed release oral tablet (20 sources)Proton Pump InhibitorStart: 75-44-0628vzjk 1 tablet by mouth once dailyPantoprazole 40 mg tablet,delayed release (DR/EC) Active 40 MG PO Daily November 12, 2024 12:00am Complies with drug therapytake 1 tablet by mouth before mealtimepantoprazole (ProtoNix) 40 MG EC tablet Take 40 mg by mouth in the morning. Take before meals. Activepotassium chloride 20 meq extended release oral tablet (20 sources)Start: 63-10-6412tpej 1 tablet by mouth once dailyPotassium Chloride 20 mEq tablet extended release Active 20 MEQ PO Daily November 12, 2024 12:00am Complies with drug therapyStart: 05-21-2023 End: 76-53-0784xkrj 1 tablet by mouth once dailypotassium chloride CR (Klor-Con M20) 20 MEQ ER tablet Indications: Hypokalemia Take 1 tablet (20 mEq) by mouth Daily Do not crush or chew. 90 tablet 1 05/21/2023 10/14/2023 Discontinued (Duplicate order)rivaroxaban 15 mg oral tablet (20 sources)Factor Xa InhibitorStart: 49-86-8778cgrs 1 tablet by mouth once daily at dinnerRivaroxaban (Xarelto) 15 mg tablet Active 15 MG PO Daily November 12, 2024 12:00am must administer with evening meal Complies with drug therapytake 1 tablet by mouth in the morningrivaroxaban (Xarelto) 15 MG tablet Take 15 mg by mouth in the morning. Take with food.. Activespironolactone 25 mg oral tablet (20 sources)Aldosterone AntagonistStart: 87-74-1460tudj 1 tablet by mouth once dailySpironolactone 25 mg tablet Active 25 MG PO Daily November 11, 2024 12:00am Complies with drug therapyStart: 10-14-2023 End: 12-89-5718liaj 0.5 tablet by mouth in the morningspironolactone (Aldactone) 25 MG tablet Indications: Hypertensive heart disease with heart failure (HCC) Take 0.5 tablets (12.5 mg) by mouth in the morning. 15 tablet 11 10/14/2023 10/13/2024 ActiveStart: 09-25-2023 End: 13-92-1899pyuuslkjqmkmgu (Aldactone) 25 MG tablet Take 12.5 mg by mouth in the morning. 09/25/2023 10/14/2023iscontinued (Reorder)vitamin b12 1 mg oral tablet (4 sources)Vitamin Q38oodf 1 tablet by mouth once dailycyanocobalamin (Vitamin B-12) 1000 MCG tablet Take 1,000 mcg by mouth Daily Active Problems Active Problems Problem ClassificationProblemDateDocumented DateEpisodic/ChronicCardiac dysrhythmias (20 sources)Chronic atrial fibrillation; Translations: [Chronic atrial fibrillation, unspecified]Onset: 007266-60-6439HuncqieRwndkqti (8 sources)Age-related nuclear cataract, right eye; Translations: [Age-related nuclear cataract, left eye]Onset: 71-71-5245UxhdrfnTwhgmph kidney disease (20 sources)Chronic kidney disease stage 3B ; Translations: [Stage 3b chronic kidney disease (HCC)]Onset: 938392-35-5016QfzpjstCnzvzhs kidney disease (2 sources)Chronic kidney disease; Translations: [Chronic kidney disease, stage 3b]Onset: 79-81-7740Rdyrixzcru heart failure; nonhypertensive (20 sources)Acute on chronic diastolic (congestive) heart failure; Translations: [Chronic diastolic (congestive) heart failure]Onset: 39-79-8374ZssvjupCyuutqxm atherosclerosis and other heart disease (20 sources)Atherosclerotic heart disease 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 coronary artery without angina pectoris; Translations: [Coronary arteriosclerosis]Onset: 06-18-2018 27-08-6662VmpduodNvopyfea atherosclerosis and other heart disease (3 sources)Presence of aortocoronary bypass graft; Translations: [PRESENCE AORTOCORONARY BYPASS GRAFT]Onset: 89-31-8488MqvwqtroBfwcqiuvqd and other anemia (1 source)Iron deficiency anemia; Translations: [Iron deficiency anemia, unspecified]69-24-3757NxqkastfIykbqsgh mellitus with complications (14 sources)Chronic kidney disease due to type 2 diabetes mellitus; Translations: [Type 2 diabetes mellitus with diabetic chronic kidney disease] Onset: 498268-07-6995GdqhvffCocjzhwl mellitus without complication (12 sources)Type 2 diabetes mellitus; Translations: [Type 2 diabetes mellitus without complications]Onset: 874203-96-2591VhbqdmbRkkotgkri of lipid metabolism (20 sources)Pure hypercholesterolemia, unspecified; Translations: [Hypercholesterolemia]Onset: 12-27-2021 Resolved: 403150-40-0311IevyuxmSxsavvlfhx disorders (13 sources)Gastroesophageal reflux disease without esophagitis; Translations: [Gastro-esophageal reflux disease without esophagitis]Onset: 04-13-2024 55-18-6715AklpkvvBaersdnss hypertension (20 sources)Essential (primary) hypertension; Translations: [Hypertensive disorder]Onset: 167633-21-4606HkmpmvdLjkbw valve disorders (20 sources)Mitral valve regurgitation; Translations: [Nonrheumatic mitral (valve) insufficiency]Onset: 413920-27-7012BuaylgkJpomzduatmdq with complications and secondary hypertension (20 sources)Hypertensive heart failure; Translations: [Hypertensive heart disease with heart failure]Onset: 772221-10-3026QjddmjjQxhgszm and fatigue (20 sources)Fatigue; Translations: [Chronic fatigue, unspecified]Onset: 603134-91-9429GmlrazjRbifb eye disorders (1 source)H/O: Bilateral cataract extraction; Translations: [Cataract extraction status, right eye]13-51-2542ArhyicimQlrzt nervous system disorders (6 sources)Numbness of finger; Translations: [Anesthesia of skin]Onset: 926251-19-6419JgwumrvvKyofpwctg heart disease (20 sources)Pulmonary hypertension; Translations: [Pulmonary hypertension, unspecified]Onset: 420936-86-9438XjemjepZuthltgw codes; unclassified (1 source)Acquired absence of both cervix and uterus; Translations: [ACQUIRED ABSENCE BOTH CERVIX AND UTERUS]Onset: 61-19-1451TcqukbyfJahytftenoad (2 sources)Permanent atrial fibrillation; Translations: [Permanent atrial fibrillation]Onset: 59-54-1411Xtwfxzywwcmi (2 sources)Chronic atrial fibrillation, unspecified; Translations: [Chronic atrial fibrillation, unspecified]Onset: 02-01-2022 Past or Other Problems Problem ClassificationProblemDateDocumented DateEpisodic/Chronic Administrative/social admission (20 sources)First encounter by subject; Translations: [Persons encountering health services in other specified circumstances]Onset: 04-25-2023 Resolved: 815359-33-0054FiyrrgzrOvnv disorders (4 sources)Mood disordersOnset: Other and unspecified benign neoplasm (1 source)Hemangioma unspecified site; Translations: [HEMANGIOMA UNSPECIFIED SITE]Onset: 16-31-8685JrfnytxrRblxe ear and sense organ disorders (2 sources)Excessive cerumen in ear canal ; Translations: [Impacted cerumen, bilateral]20-10-0844FmvuhideRrmai lower respiratory disease (20 sources)Dyspnea; Translations: [Shortness of breath]Onset: 04-25-2023 54-91-5820AjnenukjJuagk skin disorders (4 sources)Sebaceous cyst; Translations: [SEBACEOUS CYST]Onset: 03-28-2021 Episodic Results Test NameValueInterpretationReference RangeFacilityOffice Visiton 11-23-2024 Follow-up [id number] Jenifer Hernandez 1940 F Date Provider Department Center 11/23/2024 HERBER BERMUDEZ Family History Problem Relation Age of Onset Other Father Stroke Brother Family Status - Relation Status Age at Mother Father Brother Level of Service:14041 [place] OFFICE/OUTPATIENT ESTABLISHED MOD [facility] 46-98-8752Txekmb-up visit [id number] Jenifer Hernandez 1940 F Date Provider Department Center 09/07/2024 [facility]-HERBER FLORES [facility] Family History Problem Relation Age of Onset Other Father Stroke Brother Family Status - Relation Status Age at Father Brother Level of Service:12269 [place] OFFICE/OUTPATIENT ESTABLISHED MOD MDM 30 [facility] HospitalCA ECHO DOPPLER COMPLETEon 11-52-3005ZzpDeborah [place] [id number] Cardiology Report Signed Patient: JENIFER HERNANDEZ MR#: [id number] : 1940 Acct:[id number] Age/Sex: 84 / F ADM Date: 08/19/24 Loc: [facility] Attending Dr: HERBER FLORES Ordering Physician: HERBER FLORES Date of Service: 08/19/24 Procedure(s): [place] echo doppler complete Accession Number(s): [id number] cc: Allyssa Baez BANK TELLER; HERBER FLORES ECHOCARDIOGRAM REPORT PROCEDURE: CA ECHO [...] Area (VTI): 1.51 cm2, 1.54 cm2 Deceleration [place]: 1.96 m/s2 Pressure Half-Time: 465.85 ms Peak Velocity(Antegrade Flow): 1.54 m/s, 1.69 m/s, 1.63 m/s, 1.69 m/s Peak Gradient(Antegrade Flow): 9.45 mm[Hg], 11.39 mm[Hg], 10.67 mm[Hg], 11.39 mm[Hg] Mean Velocity(Antegrade Flow): 1.05 m/s, 1.23 m/s, 1.19 m/s, 1.24 m/s Mean Gradient(Antegrade Flow): 5.16 mm[Hg], 6.72 mm[Hg], 6.24 mm[Hg], 6.8 (more content not included)...TBHRadiology, Radiologist, - 08/20/2024 [place] [address] Cardiology Report Signed Patient: JENIFER HERNANDEZ MR#: [id number] : 1940 Acct:[id number] Age/Sex: 84 / F ADM Date: 08/19/24 Loc: CARD Attending Dr: HERBER FLORES Ordering Physician: HERBER FLORES Date of Service: 08/19/24 Procedure(s): CA echo doppler complete Accession Number(s): [id number] cc: Allyssa Baez BANK TELLER; HERBER FLORES ECHOCARDIOGRAM REPORT PROCEDURE: CA ECHO [...] Area (VTI): 1.51 cm2, 1.54 cm2 Deceleration [place]: 1.96 m/s2 Pressure Half-Time: 465.85 ms Peak [...] 08/19/2024 at 18:33 Continued Report - Page [place] [address] Dictated By: Birdie Chacon M.D. Signed By: 08/19/241834 DD/ 32 TD/TT: [employer] Operator: [facility] HOSPITALLinden Guernsey Memorial HospitalRadiology Study observation (narrative)[facility] ECHO DOPPLER COMPLETEOrdered By: Radiologist Radiology on 83-05-0731ASPJSamaritan Hospital Work Phone: HbA1c (Bld) [Mass fraction]on 78-81-5841Xshpcjmgfrzgql and review of laboratory resultsAbnormalNovant Health Matthews Medical CenterLaboratory - Hematology and Cell countson 60-08-2449RcN6i (Bld) [Mass fraction]6.30 %[facility] Xjjbzzoabu37st 40-16-880404Frgkufzbl lab results from 05/13/2024: MD Radha Castro MA Her blood testing is okay. Continue the same treatment. Sent fax to Allyssa Baez's office making them aware Dr. Flores does not want to adjust patient's diuretics at this time.[facility]burgALL CBC WITH AUTO DIFFon 56-91-8884EZPTQMVWM ABSOLUTE TOZS1QDRT Healthcare Basophils/100 WBC (Bld)0.3 %0.2 - 2.0 %[facility]OM[facility] HealthcareEosinophils/100 WBC (Bld)2 %0.9 - 7.0 %NOMS HealthcareErythrocyte distribution width (RBC) [Ratio]13.8 % 11.0 - 15.0 %[facility]S HealthcareHematocrit (Bld) [Volume fraction]38 %36.0 - 48.0 % [facility] HealthcareHemoglobin (Bld) [Mass/Vol]12.7 g/dL12.0 - 16.0 g/dLNOOH HealthcareIMMATURE GRANULOCYTES ABS AUTO0.01NOMS HealthcareImmature granulocytes/100 WBC (Bld)0.2 %0.0 - 0.5 %[facility] HealthcareInterpretation and review of laboratory resultsAbnormalNOMS HealthcareLYMPHOCYTES ABSOLUTE AUTO1.5 NOMS HealthcareLymphocytes/100 WBC (Bld)25.7 %20.5 - 60.0 %NOMPerry County Memorial HospitalH (RBC) [Entitic mass]33.3 pg26.7 - 34.0 pgNOMercy Hospital JoplinMCHC (RBC) [Mass/Vol] 33.4 g/dL29.9 - 35.2 g/dLSamaritan HospitalMCV (RBC) [Entitic vol]99.7 sPDtgt07.0 - 99.0 fLNOOH HealthcareMONOCYTES ABSOLUTE QSRE6BodwMKBK HealthcareMonocytes/100 WBC (Bld)16 %High1.7 - 12.0 %NOM[facility] HealthcareNEUTROPHILS ABSOLUTE AUTO3.4NOMS HealthcareNeutrophils/100 WBC (Bld)55.8 %43.0 - 75.0 %NOMS HealthcarePlatelet mean volume (Bld) [Entitic vol]9 fLLow9.5 - 13.5 fLNOMS HealthcareTBH EO #0.1 NOMS HealthcareTBH UNE073CBYY HealthcareTBH RBC3.81LowNOMS HealthcareTBH WBC6 NOMS HealthcareCLINISYNCNOMS HealthcareALL BASIC METABOLIC PANELon 02-04-2024 Anion gap [Moles/Vol]9.8 mmol/LNOMS HealthcareCalcium [Mass/Vol]9.4 mg/dL8.5 - 10.1 mg/dLNOMS HealthcareChloride [Moles/Vol]102 mmol/L98 - 107 mmol/LNOMS HealthcareCO2 [Moles/Vol]34.9 mmol/LHigh21.0 - 32.0 mmol/LNOMS Healthcare Creatinine [Mass/Vol]1.76 mg/dLHigh0.55 - 1.02 mg/dLNOMS HealthcareGFR/1.73 sq M.predicted CKD-EPI (S/P/Bld) [Vol rate/Area]33Low>=60 mL/min/1.73m 2NOMS HealthcareGlucose [Mass/Vol]148 mg/sKLwwa83 - 106 mg/dLNOOH Healthcare Interpretation and review of laboratory resultsAbnormalNOOH HealthcarePotassium [Moles/Vol]3.7 mmol/L3.5 - 5.1 mmol/LNOMS HealthcareSodium [Moles/Vol]143 mmol/L 136 - 145 mmol/LNOMS HealthcareTBH EGFR-NON AF CVRBRJDP54Ehn>=60 mL/min/1.73m 2 NOMS HealthcareUrea nitrogen [Mass/Vol]36 mg/dLHigh7.0 - 18.0 mg/dLNOOH HealthcareUrea nitrogen/Creatinine [Mass ratio]20.5 mg/mgNOMS Healthcare CLINISYNCNOOH HealthcareOffice Visiton 95-28-8370Qzmlym-up [id number] Jenifer Hernandez 1940 F Date Provider Department Center 01/13/2024 HERBER BERMUDEZ LEIGHA Mcgrath Family History Problem Relation Age of Onset Other Father Stroke Brother Family Status - Relation Status Age at Father Brother Level of Service:36928 [place] OFFICE/OUTPATIENT ESTABLISHED MOD MDM 30 [facility] HospitalALL BASIC METABOLIC PANELon 97-48-7767Anyxj gap [Moles/Vol]10.9 mmol/LNOMS HealthcareCalcium [Mass/Vol]9.6 mg/dL8.5 - 10.1 mg/dLNOMS HealthcareChloride [Moles/Vol]102 mmol/L98 - 107 mmol/LNOMS Healthcare CO2 [Moles/Vol]33.4 mmol/LHigh21.0 - 32.0 mmol/LNOMS HealthcareCreatinine [Mass/Vol]1.54 mg/dLHigh0.55 - 1.02 mg/dLNOOH HealthcareGFR/1.73 sq M.predicted CKD-EPI (S/P/Bld) [Vol rate/Area]39Low>=60 mL/min/1.73m 2NOMS HealthcareGlucose [Mass/Vol]99 mg/dL74 - 106 mg/dLNOOH HealthcareInterpretation and review of laboratory resultsAbnormalNOOH HealthcarePotassium [Moles/Vol]4.3 mmol/L3.5 - 5.1 mmol/LNOMS HealthcareSodium [Moles/Vol]142 mmol/L136 - 145 mmol/LNOMS HealthcareTB EGFR-NON AF RENQHLYD49Gyc>=60 mL/min/1.73m 2NOMS HealthcareUrea nitrogen [Mass/Vol]34 mg/dLHigh7.0 - 18.0 mg/dLNOOH HealthcareUrea nitrogen/Creatinine [Mass ratio]22.1 mg/mgNOOH HealthcareCLINISYNCNMid [facility] BASIC METABOLIC PANELon 33-91-7078Rtrki gap [Moles/Vol]13.5 mmol/L NOM HealthcareCalcium [Mass/Vol]9.2 mg/dL8.5 - 10.1 mg/dLSamaritan Hospital Chloride [Moles/Vol]102 mmol/L98 - 107 mmol/LNOMS HealthcareCO2 [Moles/Vol]31.4 mmol/L21.0 - 32.0 mmol/LNOMS HealthcareCreatinine [Mass/Vol]1.68 mg/dLHigh0.55 - 1.02 mg/dLNOOH HealthcareGFR/1.73 sq M.predicted CKD-EPI (S/P/Bld) [Vol rate/Area]35Low>=60 mL/min/1.73m 2NOMS HealthcareGlucose [Mass/Vol]137 mg/dLHigh 74 - 106 mg/dLNOOH HealthcareInterpretation and review of laboratory results AbnormalNOMS HealthcarePotassium [Moles/Vol]3.9 mmol/L3.5 - 5.1 mmol/LNOMS HealthcareSodium [Moles/Vol]143 mmol/L136 - 145 mmol/LNOMS HealthcareTBH EGFR- NON AF VTZDTGTW48Snq>=60 mL/min/1.73m 2NOMS HealthcareUrea nitrogen [Mass/Vol]35 mg/dLHigh7.0 - 18.0 mg/dLNOMS HealthcareUrea nitrogen/Creatinine [Mass ratio] 20.8 mg/mgNOMS HealthcareCLINISYNCNOMS HealthcareOffice Visiton 12-18-2023 Follow-up [id number] Jenifer Hernandez 1940 F Date Provider Department Center 12/18/2023 00958-ASPXYPBIRDIE CHACON CARD [facility] Family History Problem Relation Age of Onset Other Father Stroke Brother Family Status - Relation Status Age at Father Brother Level of Service:32354 [place] OFFICE/OUTPATIENT ESTABLISHED MOD [facility] 30 MIN Reason for Visit and Comments: Atrial Fibrillation [80] - Denies palpitations, syncope, and bleeding on Xarelto. Congestive Heart Failure [127] - Dr. Flores reduced Bumex at last visit in Sep. Had echo 2 weeks ago and needs more diuretic per Dr. Flores. She has gained 6# since last visit. Coronary Artery Disease [187] Hypertension [585338] Valve Disorder [3372] Dizziness [165408] - Denies syncope. Edema [[id number]][facility]36on Spoke with patient and got her in to see Dr. Chacon on 12/17. I asked her to have BMP prior to apt. Order faxed to [facility]36on 37-59-347420Xalxechyt echo result from 11/29/2023: MD Radha Castro MA She needs more diuretic, is she coming for a follow up? She is not scheduled to see you until 01/12. You are completely booked until then. Would you like her to see an BANK TELLER or Dr. Chacon in the meantime?[facility] OhioALL BASIC METABOLIC PANELon 03-57-1927Llkxl gap [Moles/Vol]8.1 mmol/LNOMS HealthcareCalcium [Mass/Vol]9.1 mg/dL8.5 - 10.1 mg/dLNOMS HealthcareChloride [Moles/Vol]100 mmol/L98 - 107 mmol/LNOMS Healthcare CO2 [Moles/Vol]33.6 mmol/LHigh21.0 - 32.0 mmol/LNOMS HealthcareCreatinine [Mass/Vol]1.59 mg/dLHigh0.55 - 1.02 mg/dLNOOH HealthcareGFR/1.73 sq M.predicted CKD-EPI (S/P/Bld) [Vol rate/Area]94Kyk15 - PINFNOMS HealthcareGlucose [Mass/Vol] 93 mg/dL74 - 106 mg/dLNOOH HealthcareInterpretation and review of laboratory resultsAbnormalNOMS HealthcarePotassium [Moles/Vol]3.7 mmol/L3.5 - 5.1 mmol/L NOMS HealthcareSodium [Moles/Vol]138 mmol/L136 - 145 mmol/LNOMS HealthcareTBH EGFR-NON AF WZNIECYS97Ejh08 - PINFNOMS HealthcareUrea nitrogen [Mass/Vol]42.0 mg/dLHigh7.0 - 18.0 mg/dLNOOH HealthcareUrea nitrogen/Creatinine [Mass ratio] 26.4 mg/mgNOMS HealthcareCLINISYNCNPOST AC[facility] HealthcarePROF CHEM 8 (BAS METB)on 89-94-0940Kapqe gap [Moles/Vol]13.7 mmol/LNormalHocking Valley Community HospitalComment on above:Performed By: #### BMP #### [facility] [address] [place] [address] [address] Vega SorensenCalcium [Mass/Vol]9.2 mg/dLNormal8.5-10.1[facility] Comment on above:Performed By: #### BMP #### [facility] [address] [place] [address] [address] Vega SorensenChloride [Moles/Vol]100 mmol/MJwblek25-236ImfHocking Valley Community Hospital Comment on above:Performed By: #### BMP #### [facility] [address] [place] [address] [address] Vega SorensenCO2 [Moles/Vol]30.2 mmol/NLnnvdg58.0-32.0[facility] Comment on above:Performed By: #### BMP #### [facility] [address] [place] [address] [address] Vega SorensenCreatinine [Mass/Vol]1.69 mg/dLCritically high0.55-1.02The St. Rita'S HospitalComment on above:Performed By: #### BMP #### [facility] [address] [place] [address] [address] Ferrari ChangEGFR-AF MPDPOAMJ57 mL/min/1.86f6Dnjvcqetbn low>=60The [facility] HospitalComment on above:Performed By: #### BMP #### [facility] [address] [address] [address] Vega MadrigalGFR-NON AF BLGBZIGI51 mL/min/1.67m8Tpkecncics low>=60The [facility] HospitalComment on above:Performed By: #### BMP #### [facility] [address] [address] [address] Vega SorensenGlucose [Mass/Vol]162 mg/dLCritically qydl76-110Llm [facility] HospitalComment on above:Performed By: #### BMP #### [facility] [address] [address] [address] Vega SorensenPotassium [Moles/Vol]3.9 mmol/LNormal3.5-5.1The [facility] Comment on above:Performed By: #### BMP #### [facility] [address] [address] [address] Vega SorensenSodium [Moles/Vol]140 mmol/BEeekfl762-937Tgb [facility] Comment on above:Performed By: #### BMP #### [facility] [address] [address] [address] Vega SorensenUrea nitrogen [Mass/Vol]36.0 mg/dLCritically high7.0-18.0The [facility] HospitalComment on above:Performed By: #### BMP #### [facility] [address] [address] [address] Vega SorensenUrea nitrogen/Creatinine [Mass ratio]21.3 mg/mgNormalThe St. [facility]'S HospitalComment on above:Performed By: #### BMP #### [facility] [address] [address] [address] Vega AlvaradoF CHEM 8 (BAS METB)on 58-51-8571Fsovg gap [Moles/Vol]14.6 mmol/LNormalThe St. [facility]'S HospitalComment on above:Performed By: #### BMP ####[facility] [address] [place], [place] [address]Dr. Vega ChangCalcium [Mass/Vol]9.1 mg/dLNormal8.5-10.1The [facility]S HospitalComment on above:Performed By: #### BMP ####[facility] Y[address] [place], [place] [address]Dr.Vega ChangChloride [Moles/Vol]99 mmol/LNormal 98-107The [facility] HospitalComment on above:Performed By: #### BMP ####[facility] [address] [place], [place] [address]Dr.Vega ChangCO2 [Moles/Vol]28.8 mmol/JGzfbls44.0-32.0The [facility] HospitalComment on above: Performed By: #### BMP ####[facility] Qwsc[address]fr[address] [place], [place] [address]Dr.Vega ChangCreatinine [Mass/Vol]1.63 mg/dL Critically high0.55-1.02The [facility] HospitalComment on above:Performed By: #### BMP ####[facility] Kmfay[address] [place], [place] [address]Dr.Angelalan ChangEGFR-AF TJUVBHRG23 mL/min/1.21w5Cddlwenxvh low>=60The [facility] HospitalComment on above:Performed By: #### BMP ####[facility] Eis[address] [place], [place] [address]Dr.Angelalan ChangEGFR-NON AF BCNJQBVT87 mL/min/1.99b6Uuirdvikuw low>=60The [facility] HospitalComascension [facility] on above: Performed By: #### BMP ####[facility] T[address] [place], [place] [address]Dr.Vega ChangGlucose [Mass/Vol]143 mg/dLCritically pyjs06-186Wra [facility] HospitalComment on above:Performed By: #### BMP ####[facility] [address] [address]Dr. Vega ChangPotassium [Moles/Vol]3.4 mmol/LCritically low3.5-5.1The [facility] HospitalComment on above:Performed By: #### BMP ####[facility] [address] [address]Dr.Vega ChangSodium [Moles/Vol]139 mmol/BPfejlg021-655Mhn St[facility] HospitalComment on above: Performed By: #### BMP ####[facility] [address] [address]Dr.Vega ChangUrea nitrogen [Mass/Vol]38.0 mg/dL Critically high7.0-18.0The [facility] HospitalComment on above:Performed By: #### BMP ####[facility] Hkbobjej[address] [place], [place] [address]Dr. Vega ChangUrea nitrogen/Creatinine [Mass ratio]23.3 mg/mgNormalThe St. [facility]S HospitalComment on above:Performed By: #### BMP ####[facility] Wvpur[address]ugn[address] [place], [place] [address]Dr.Yilan HungPon 17-10-8017Jmiwjsdcxvr peptide B (Bld) [Mass/Vol]5150.0 pg/mLCritically high <=1,800.0The [facility] HospitalComment on above:Performed By: #### BMP, BNP #### [facility] [address] [address] [address] Vega Grider CHEM 8 (BAS METB)on 19-52-7642Liciw gap [Moles/Vol]12.9 mmol/LNormalThe St. [facility]S HospitalComment on above:Performed By: #### BMP, BNP #### [facility] [address] [address] [address] Vega SorensenCalcium [Mass/Vol]9.0 mg/dLNormal8.5-10.1The [facility] Comment on above:Performed By: #### BMP, BNP #### [facility] [address] [address] [address] Vega SorensenChloride [Moles/Vol]102 mmol/DHwxntz82-827Xlu [facility] Comment on above:Performed By: #### BMP, BNP #### [facility] [address] [address] [address] Vega SorensenCO2 [Moles/Vol]30.2 mmol/DWcxayy20.0-32.0The [facility] Comment on above:Performed By: #### BMP, BNP #### [facility] [address] [place] [address] Dr. Vega SorensenCreatinine [Mass/Vol]1.90 mg/dLCritically high0.55-1.02The [facility] HospitalComment on above:Performed By: #### BMP, BNP #### [facility] [address] [place] [address] Dr. Ferrari ChangEGFR-AF HSWHYBRQ74 mL/min/1.48i1Azciehkzca low>=60The [facility] HospitalComment on above:Performed By: #### BMP, BNP #### [facility] [address] [place] [address] Dr. Vega MadrigalGFR-NON AF EXAUFWJH18 mL/min/1.89g7Bhrjjyccdi low>=60The [facility] HospitalComment on above:Performed By: #### BMP, BNP #### [facility] [address] [place] [address] Dr. Vega SorensenGlucose [Mass/Vol]121 mg/dLCritically frof59-039Vao St[facility] HospitalComment on above:Performed By: #### BMP, BNP #### [facility] [address] [place] [address] Dr. Vega SorensenPotassium [Moles/Vol]4.1 mmol/LNormal3.5-5.1The [facility] Comment on above:Performed By: #### BMP, BNP #### [facility] [address] [place] [address] Dr. Vega SorensenSodium [Moles/Vol]141 mmol/PTyshdz742-847Pdq [facility] Comment on above:Performed By: #### BMP, BNP #### [facility] [address] [address] [address] Vega Perry nitrogen [Mass/Vol]34.0 mg/dLCritically high7.0-18.0[facility] HospitalComment on above:Performed By: #### BMP, BNP #### [facility] [address] [address] [address] Vega Perry nitrogen/Creatinine [Mass ratio]17.9 mg/mgNormalThe St. [facility]S HospitalComment on above:Performed By: #### BMP, BNP #### [facility] [address] [address] [address] Vega Hendrix 03-30-2021 Specimen: [id number] Received: 03/30/21 Status: JOREG Wagner Num: [id number] Spec Type: Surgical Subm Dr: Chad Yeboah MD Tissues: A Soft Tissue/Surgical Margin-Other than Tumor,Mass,Lip or Rosita (ANTERIOR ORBIT Procedures: HE Stain, Gross/Micro L4 Patient Age/Sex Location Account Attending Physician Jenifer Hernandez 80/F [place] [id number] Chad Yeboah MD SPEC NUM: [id number] RECD: 03/30/21 STATUS: JORGE WAGNER NUM: [id number] RACHAEL: 03/30/21 DR: Chad Yeboah MD ENTERED: 03/30/21 [facility] DR: HALLEY TYPE: Surgical DEPT: S ORDERED: [...] Fixative: 10% Neutral Buffered Formalin (SM/YJ) Specimen: [id number] Received: 03/30/21 Status: CHUCKYCorbin Wagner Num: [id number] Spec Type: Surgical Subm Dr: Chad Yeboah MD Tissues: A Soft Tissue/Surgical Margin-Other than Tumor,Mass,Lip or Rosita (ANTERIOR ORBIT Procedures: HE Stain, Gross/Micro L4 Patient: Jenifer Hernandez [id number] (Continued) Specimen: [id number] Received: 03/30/21 (Continued) Signed (signature on file) Mili Peguero MD 03/31/21 1648 Specimen: S2 Received: 03/30/21 Status: JORGE Wagner Num: [id number] Spec Type: Surgical Subm Dr: Chad Yeboah MD Tissues: A Soft Tissue/Surgical Margin-Other than Tumor,Mass,Lip or Rosita (ANTERIOR ORBIT Procedures: HE Stain, Gross/Micro L4 Patient: Jenifer Hernandez [id number] (Continued) Specimen: [id number] Received: 03/30/21-1159 (Continued) Microscopic Description One glass slide with [...] characteristics were determined by the [facility]. Immunohistochemistry assays have not been validated on decalcified tissue. Results should be interpreted with caution given the possibility of false negative results on decalcified specimens. They have not been cleared by the [place] Food and Drug Administration. The FDA has determined that such clearance or approval is not necessary. CPT Codes 28306, 02259, 20882, 51892 Specimen: [id number] Received: 03/30/21 Status: JORGE Wagner Num: [id number] Spec Type: Surgical Subm Dr: Chad Yeboah MD Tissues: A Soft Tissue/Surgical Margin-Other than Tumor,Mass,Lip or Rosita (ANTERIOR ORBIT Procedures: HE Stain, Gross/Micro L4 Patient: Jenifer Hernandez [id number] (Continued) (more content not included)...[facility] AUTO DIFFon [id number] #0.0 103/ulNormal0.0-0.1[facility] HospitalComment on above:Performed By: #### CBC #### [facility] [address] [address] [address] Vega Nievessophils/100 WBC (Bld)0.5 %Normal0.2-2.0[facility] Comment on above:Performed By: #### CBC #### [facility] [address] [address] [address] Vega Chavez #0.1 103/ulNormal0.0-0.7The [facility]S HospitalComment on above: Performed By: #### CBC #### [facility] [address] [address] [address] Vega Madrigalosinophils/100 WBC (Bld)1.5 %Normal0.9-7.0The [facility] Comment on above:Performed By: #### CBC #### [facility] [address] [place] [address] Dr. Vega Madrigalrythrocyte distribution width (RBC) [Ratio]13.7 %Dpoews19.0-15.[address] [facility] HospitalComment on above:Performed By: #### CBC #### [facility] [address] [place] [address] Dr. Vega SorensenHematocrit (Bld) [Volume fraction]38.1 %Jdsxbr85.0-48.0The [facility] HospitalComment on above:Performed By: #### CBC #### [facility] [address] [place] [address] Dr. Vega SorensenHemoglobin (Bld) [Mass/Vol]12.5 g/gDHrxlpt37.0-16.0The [facility] HospitalComment on above:Performed By: #### CBC #### [facility] [address] [place] [address] Dr. Vega Gilbert #0.03 10e3/ulNormal0.00-0.03The [facility] HospitalComment on above:Performed By: #### CBC #### [facility] [address] [place] [address] Dr. Vega Gilbert %0.4 %Normal0.0-0.5The [facility] HospitalComment on above: Performed By: #### CBC #### [facility] [address] [place] [address] Dr. Vega ParkerH #1.4 103/ulNormal1.2-3.8The [facility] HospitalComment on above:Performed By: #### CBC #### [facility] [address] [place] [address] Dr. Vega Bustillosmphocytes/100 WBC (Bld)18.7 %Critically low20.5-60.0The [facility] HospitalComment on above:Performed By: #### CBC #### [facility] [address] [place] [address] Dr. Vega Moses DIFF REQNONormalThe St. [facility]S HospitalComment on above: Performed By: #### CBC #### [facility] [address] [place] [address] Dr. Vega Barr (RBC) [Entitic mass]34.0 fxIvwpyx04.7-34.0The [facility] HospitalComment on above:Performed By: #### CBC #### [facility] [address] [place] [address] Dr. Vega Barr (RBC) [Mass/Vol]32.8 g/bVXgpppf07.9-35.2The [facility] HospitalComment on above:Performed By: #### CBC #### [facility] [address] [place] [address] Dr. Vega Salcedo (RBC) [Entitic vol]103.5 fLCritically high81.0-99.0The [facility] HospitalComment on above:Performed By: #### CBC #### [facility] [address] [place] [address] Dr. Vega Teran #1.0 103/ulCritically high0.3-0.8The [facility] Comment on above:Performed By: #### CBC #### [facility] [address] [place] [address] Dr. Vega Bucioocytes/100 WBC (Bld)12.8 %Critically high1.7-12.0The [facility] HospitalComment on above:Performed By: #### CBC #### [facility] [address] [place] [address] Dr. Vega Merritt #5.0 103/ulNormal1.4-6.5The [facility] HospitalComment on above:Performed By: #### CBC #### [facility] [address] [place] [address] Dr. Vega Shirleyophils/100 WBC (Bld)66.1 %Fhhsgn73.0-75.0The [facility] HospitalComment on above:Performed By: #### CBC #### [facility] [address] [place] [address] Dr. Vega Osullivan mean volume (Bld) [Entitic vol]9.2 fLCritically low 9.5-13.5The [facility] HospitalComment on above:Performed By: #### CBC #### [facility] [address] [place] [address] Dr. Vega SorensenPLT180 103/mqYdwvop878-922Naw St[facility]S HospitalComment on above: Performed By: #### CBC #### [facility] [address] [address] [address] Vega SorensenRBC3.68 106/ulCritically low4.20-5.40The [facility] HospitalComment on above:Performed By: #### CBC #### [facility] [address] [place] [address] Dr. Vega SorensenWBC7.5 103/ulNormal4.0-11.0The [facility] HospitalComment on above: Performed By: #### CBC #### [facility] [address] [place] [address] Dr. Vega Balderrama 42-48-6181Fkvcfamwozr peptide B (Bld) [Mass/Vol]2297.0 pg/mLCritically high<=1,800.0The [facility] HospitalComment on above:Performed By: #### BMP, BNP #### [facility] [address] [place] [address] Dr. Vega SorensenPROF CHEM 8 (BAS METB)on 38-44-2249Viwuu gap [Moles/Vol]10.0 mmol/LNormalThe St. [facility] HospitalComment on above:Performed By: #### BMP, BNP #### [facility] [address] [place] [address] Dr. Vega SorensenCalcium [Mass/Vol]9.1 mg/dLNormal8.4-10.2The [facility] Comment on above:Performed By: #### BMP, BNP #### [facility] [address] [place] [address] Dr. Vega SorensenChloride [Moles/Vol]101 mmol/EAtmdcx77-009Yfl [facility] Comment on above:Performed By: #### BMP, BNP #### [facility] [address] [address] [address] Vega SorensenCO2 [Moles/Vol]31.8 mmol/LCritically high22.0-30.0The [facility] HospitalComment on above:Performed By: #### BMP, BNP #### [facility] [address] [place] [address] Dr. Vega SorensenCreatinine [Mass/Vol]1.70 mg/dLCritically high0.52-1.04The [facility] HospitalComment on above:Performed By: #### BMP, BNP #### [facility] [address] [place] [address] Dr. Vega MadrigalGFR-AF JXHKZJGO19 mL/min/1.65j8Shohsgmltd low>=60The [facility] HospitalComment on above:Performed By: #### BMP, BNP #### [facility] [address] [place] [address] Dr. Vega Cardenas-NON AF POEMRHZX92 mL/min/1.13g6Yfmlapsgwv low>=60The [facility] HospitalComment on above:Performed By: #### BMP, BNP #### [facility] [address] [place] [address] Dr. Vega SorensenGlucose [Mass/Vol]160 mg/dLCritically xerr47-082Cvo [facility] HospitalComment on above:Performed By: #### BMP, BNP #### [facility] [address] [place] [address] Dr. Vega SorensenPotassium [Moles/Vol]3.8 mmol/LNormal3.4-5.0The [facility] Comment on above:Performed By: #### BMP, BNP #### [facility] [address] [place] [address] Dr. Vega SorensenSodium [Moles/Vol]139 mmol/QKsyasp773-491Rbp [facility] Comment on above:Performed By: #### BMP, BNP #### [facility] [address] [place] [address] Dr. Vega SorensenUrea nitrogen [Mass/Vol]36.0 mg/dLCritically high7.0-17.0[facility] HospitalComment on above:Performed By: #### BMP, BNP #### [facility] [address] [place], [place] [address] Dr. Vega Perry nitrogen/Creatinine [Mass ratio]21.2 mg/mgNormalThe St. [facility]'S HospitalComment on above:Performed By: #### BMP, BNP #### [facility] [address] [place], [place] [address] Dr. Vega Mohan METABOLIC PANELon 63-64-6205Lmjdric [Mass/Vol]8.7 mg/dL Normal8.6-10.3The [facility] HospitalComment on above:Order Comment: No: Do not add to previous drawPerformed By: #### 62758, 99356, 69480, 59376 #### [facility] [address] [place] [address], USAChloride [Moles/Vol]95 mmol/RIcx73-627Gui [facility] HospitalComment on above:Order Comment: No: Do not add to previous drawPerformed By: #### 69087, 94086, 53685, 48159 #### [facility] [address] [place] [address], USACO2 [Moles/Vol]33 mmol/JDsxo38-87Uzp [facility] HospitalComment on above:Order Comment: No: Do not add to previous draw Performed By: #### 57394, 27511, 95378, 33851 #### [facility] [address] [place] [address], USACreatinine [Mass/Vol]1.21 mg/dLHigh0.60-1.20The [facility] HospitalComment on above:Order Comment: No: Do not add to previous drawPerformed By: #### 35287, 06054, 69156, 62710 #### [facility] [address] [place] [address], USAGFR/1.73 sq M predicted among blacks MDRD (S/P/Bld) [Vol rate/Area]52 ml/min/1.73sq mAbnormal>60The [facility] Comment on above:Order Comment: No: Do not add to previous drawResult Comment: Calculation may not be valid for patients over 70 yearsPerformed By: #### 37635, 58743, 72902, 61200 #### [facility] [address] [place] [address], USAGFR/1.73 sq M predicted among non-blacks MDRD (S/P/Bld) [Vol rate/Area]43 ml/min/1.73sq mAbnormal>60The [facility] HospitalComment on above:Order Comment: No: Do not add to previous drawResult Comment: Calculation may not be valid for patients over 70 yearsPerformed By: #### 05569, 80340, 35540, 08125 #### [facility] [address] [place] [address], USAGlucose [Mass/Vol]105 mg/mSOhxo85-457Fos [facility] HospitalComment on above:Order Comment: No: Do not add to previous drawPerformed By: #### 53494, 59958, 41498, 81517 #### [facility] [address] [place] [address], USAPotassium [Moles/Vol]3.2 mmol/LLow3.5-5.1The [facility] HospitalComment on above:Order Comment: No: Do not add to previous drawPerformed By: #### 19172, 40109, 74213, 31022 #### [facility] [address] [place] [address], USASodium [Moles/Vol]134 mmol/QCbk586-265Vhk [facility] HospitalComment on above:Order Comment: No: Do not add to previous drawPerformed By: #### 68780, 00439, 21862, 87635 #### [facility] [address] [place] [address], USAUrea nitrogen [Mass/Vol]22 mg/dLNormal7-25The [facility] HospitalComment on above:Order Comment: No: Do not add to previous drawPerformed By: #### 70480, 87350, 50734, 75391 #### [facility] [address] [place] [address], USACalcium [Mass/Vol]8.5 mg/dLLow8.6-10.3The [facility] HospitalComment on above:Order Comment: No: Do not add to previous drawPerformed By: #### 04488, 34048, 12039, 67763 #### [facility] [address] [place] [address], USAChloride [Moles/Vol]95 mmol/FFam82-492Etm [facility] HospitalComment on above:Order Comment: No: Do not add to previous drawPerformed By: #### 46333, 90354, 99477, 94609 #### [facility] [address] [place] [address], USACO2 [Moles/Vol]34 mmol/IEgbq11-36Wuk [facility] HospitalComment on above:Order Comment: No: Do not add to previous draw Performed By: #### 94967, 68020, 50828, 92424 #### [facility] [address] [place] [address], USACreatinine [Mass/Vol]1.15 mg/dLNormal0.60-1.20The [facility] HospitalComment on above:Order Comment: No: Do not add to previous drawPerformed By: #### 89830, 58425, 86027, 11043 #### [facility] [address] [place] [address], USAGFR/1.73 sq M predicted among blacks MDRD (S/P/Bld) [Vol rate/Area]55 ml/min/1.73sq mAbnormal>60The [facility] Comment on above:Order Comment: No: Do not add to previous drawResult Comment: Calculation may not be valid for patients over 70 yearsPerformed By: #### 51734, 21282, 20436, 51746 #### [facility] [address] [place] [address], USAGFR/1.73 sq M predicted among non-blacks MDRD (S/P/Bld) [Vol rate/Area]45 ml/min/1.73sq mAbnormal>60The [facility] HospitalComment on above:Order Comment: No: Do not add to previous drawResult Comment: Calculation may not be valid for patients over 70 yearsPerformed By: #### 99526, 52859, 46598, 35953 #### [facility] [address] [place] [address], USAGlucose [Mass/Vol]109 mg/oWPacb62-689Kaj [facility] HospitalComment on above:Order Comment: No: Do not add to previous drawPerformed By: #### 47336, 20868, 50838, 48750 #### [facility] [address] [place] [address], USAPotassium [Moles/Vol]2.8 mmol/LLow3.5-5.1The [facility] HospitalComment on above:Order Comment: No: Do not add to previous drawPerformed By: #### 48713, 45258, 83275, 06273 #### [facility] [address] [place] [address], USASodium [Moles/Vol]136 mmol/BSaedhs850-053Rwl [facility] HospitalComment on above:Order Comment: No: Do not add to previous drawPerformed By: #### 91535, 39801, 43800, 41090 #### [facility] [address] [place] [address], USAUrea nitrogen [Mass/Vol]26 mg/dLHigh7-25The [facility] HospitalComment on above:Order Comment: No: Do not add to previous drawPerformed By: #### 14466, 90161, 63398, 10172 #### [facility] [address] [place] [address], USAMAGNESIUM BLOODon 40-81-8602Xlqeypgcj [Mass/Vol]2.1 mg/dL Normal1.9-2.7The [facility] HospitalComment on above:Order Comment: No: Do not add to previous drawPerformed By: #### 42845, 68555, 91100, 49289 #### [facility] [address] [place] [address], USAMagnesium [Mass/Vol]1.6 mg/dLLow1.9-2.7The [facility] HospitalComment on above:Order Comment: No: Do not add to previous drawPerformed By: #### 92755, 16794, 65360, 65682 #### [facility] [address] [place] [address], USABASIC METABOLIC PANELon 46-69-1898Jgnlywe [Mass/Vol]8.6 mg/dLNormal8.6-10.3The [facility] HospitalComment on above:Order Comment: No: Do not add to previous drawPerformed By: #### 20467, 37335, 77489, 71884 #### [facility] [address] [place] [address], USAChloride [Moles/Vol]96 mmol/YHfo54-114Uov [facility] HospitalComment on above:Order Comment: No: Do not add to previous drawPerformed By: #### 74602, 49005, 76300, 54974 #### [facility] [address] [place] [address], USACO2 [Moles/Vol]34 mmol/QIysn49-24Ckm [facility] HospitalComment on above:Order Comment: No: Do not add to previous draw Performed By: #### 15753, 42914, 83092, 05457 #### [facility] [address] [place] [address], USACreatinine [Mass/Vol]0.97 mg/dLNormal0.60-1.20The [facility] HospitalComment on above:Order Comment: No: Do not add to previous drawPerformed By: #### 82439, 71171, 35191, 39363 #### [facility] [address] [place] [address], USAGFR/1.73 sq M predicted among blacks MDRD (S/P/Bld) [Vol rate/Area]mL/min/{1.73_m2}Normal>60The [facility] Comment on above:Order Comment: No: Do not add to previous drawResult Comment: Calculation may not be valid for patients over 70 yearsPerformed By: #### 87636, 44307, 91269, 10385 #### [facility] [address] [place] [address], USAGFR/1.73 sq M predicted among non-blacks MDRD (S/P/Bld) [Vol rate/Area]55 ml/min/1.73sq mAbnormal>60The [facility] HospitalComment on above:Order Comment: No: Do not add to previous drawResult Comment: Calculation may not be valid for patients over 70 yearsPerformed By: #### 48329, 83440, 84281, 87229 #### [facility] [address] [place] [address], USAGlucose [Mass/Vol]93 mg/hQMnacgs25-326Vap [facility] HospitalComment on above:Order Comment: No: Do not add to previous drawPerformed By: #### 23609, 12716, 17602, 77103 #### [facility] [address] [place] [address], USAPotassium [Moles/Vol]3.4 mmol/LLow3.5-5.1The [facility] HospitalComment on above:Order Comment: No: Do not add to previous drawPerformed By: #### 32078, 11669, 68600, 77916 #### [facility] [address] [place] [address], USASodium [Moles/Vol]138 mmol/LHvdptp298-865Koe [facility] HospitalComment on above:Order Comment: No: Do not add to previous drawPerformed By: #### 50329, 94011, 30145, 13735 #### [facility] [address] [place] [address], USAUrea nitrogen [Mass/Vol]23 mg/dLNormal7-25The [facility] HospitalComment on above:Order Comment: No: Do not add to previous drawPerformed By: #### 03291, 68257, 32492, 67588 #### [facility] [address] [facility] [place] [address], USACBC COMPLETE BLOOD COUNTon 60-44-8410Waxupnogipf distribution width (RBC) [Ratio]Unable to ekaipvxrcQzzvlw41.5-15.0The [facility] HospitalComment on above:Order Comment: No: Do not add to previous drawPerformed By: #### 29792, 97165, 16754, 62893 #### [facility] [address] [place] [address], USAHematocrit (Bld) [Volume fraction]29.9 %Low36.0-45.0The [facility] HospitalComment on above:Order Comment: No: Do not add to previous drawPerformed By: #### 90683, 49753, 19077, 59466 #### [facility] [address] [place] [address], USAHemoglobin (Bld) [Mass/Vol]9.5 g/dLLow12.0-15.0The [facility] HospitalComment on above:Order Comment: No: Do not add to previous drawPerformed By: #### 45149, 76754, 90563, 16461 #### [facility] [address] [place] [address], [facility] (RBC) [Entitic mass]30.6 vxVhxiez11.0-33.0The [facility] HospitalComment on above:Order Comment: No: Do not add to previous drawPerformed By: #### 51451, 23327, 83494, 49325 #### [facility] [address] [facility] [place] [id number], [facility] (RBC) [Mass/Vol]31.8 g/dLLow32.0-35.0The [facility] HospitalComment on above:Order Comment: No: Do not add to previous drawPerformed By: #### 63161, 16318, 76036, 16935 #### [facility] [address] [place] [address], [facility] (RBC) [Entitic vol]96.5 yUSvmfzr20.0-98.0The [facility] HospitalComment on above:Order Comment: No: Do not add to previous drawPerformed By: #### 93370, 51058, 94826, 26614 #### [facility] [address] [place] [address], [facility] CENTERNucleated RBC/100 WBC (Bld) [Ratio]0 %Normal0-0The [facility] HospitalComment on above:Order Comment: No: Do not add to previous drawPerformed By: #### 53974, 91468, 07138, 59577 #### [facility] [address] [place] [address], USAPLAT KFP461 10*3/hKKxdioo470-907Tcy [facility] HospitalComment on above:Order Comment: No: Do not add to previous draw Performed By: #### 56812, 60971, 36708, 00999 #### [facility] [address] [place] [address], [facility]ENTERRBC (Bld) [#/Vol]3.10 10*6/uLLow3.80-5.00The [facility] HospitalComment on above:Order Comment: No: Do not add to previous drawPerformed By: #### 24886, 46100, 70382, 37228 #### [facility] [address] [place] [address], USAWBC (Bld) [#/Vol]7.86 10*3/uLNormal4.00-10.60The [facility] HospitalComment on above:Order Comment: No: Do not add to previous drawPerformed By: #### 68703, 49597, 40316, 95399 #### [facility] [address] [place] [address], USABASIC METABOLIC PANELon 28-32-6786Ervfzae [Mass/Vol]9.3 mg/dLNormal8.6-10.3The [facility] HospitalComment on above:Order Comment: No: Do not add to previous drawPerformed By: #### 84599, 11640, 54127, 50066 #### [facility] [address] [place] [address], USAChloride [Moles/Vol]103 mmol/VMkevcz07-281Llg [facility] HospitalComment on above:Order Comment: No: Do not add to previous drawPerformed By: #### 65196, 41047, 29520, 72898 #### [facility] [address] [place] [address], USACO2 [Moles/Vol]32 mmol/PPnib99-68Mya [facility] HospitalComment on above:Order Comment: No: Do not add to previous draw Performed By: #### 68921, 46426, 14687, 78783 #### [facility] [address] [place] [address], USACreatinine [Mass/Vol]1.14 mg/dLNormal0.60-1.20The [facility] HospitalComment on above:Order Comment: No: Do not add to previous drawPerformed By: #### 58916, 86233, 00709, 11619 #### [facility] [address] [place] [address], USAGFR/1.73 sq M predicted among blacks MDRD (S/P/Bld) [Vol rate/Area]56 ml/min/1.73sq mAbnormal>60The [facility] Comment on above:Order Comment: No: Do not add to previous drawResult Comment: Calculation may not be valid for patients over 70 yearsPerformed By: #### 16467, 71039, 49808, 39221 #### [facility] [address] [place] [address], USAGFR/1.73 sq M predicted among non-blacks MDRD (S/P/Bld) [Vol rate/Area]46 ml/min/1.73sq mAbnormal>60The [facility] HospitalComment on above:Order Comment: No: Do not add to previous drawResult Comment: Calculation may not be valid for patients over 70 yearsPerformed By: #### 96249, 79612, 74127, 40218 #### [facility] [address] [place] [address], USAGlucose [Mass/Vol]93 mg/dPTispjt78-907Hyx [facility] HospitalComment on above:Order Comment: No: Do not add to previous drawPerformed By: #### 05355, 92947, 12599, 12332 #### [facility] [address] [place] [address], USAPotassium [Moles/Vol]3.5 mmol/LNormal3.5-5.1The [facility] HospitalComment on above:Order Comment: No: Do not add to previous drawPerformed By: #### 65636, 13878, 57841, 75414 #### [facility] [address] [place] [address], USASodium [Moles/Vol]142 mmol/VBuszfb382-423Wsj [facility] HospitalComment on above:Order Comment: No: Do not add to previous drawPerformed By: #### 39831, 89144, 76338, 17867 #### [facility] [address] [facility] [place] [address], USAUrea nitrogen [Mass/Vol]27 mg/dLHigh7-25The [facility] HospitalComment on above:Order Comment: No: Do not add to previous drawPerformed By: #### 93078, 05503, 43639, 99764 #### [facility] [address] [place] [address], USACBC COMPLETE BLOOD COUNTon 03-30-7300Hjiaqtvecjr distribution width (RBC) [Ratio]Unable to umsupesxeVbdklx60.5-15.0The [facility] HospitalComment on above:Order Comment: No: Do not add to previous drawPerformed By: #### 54413, 06128, 08741, 77509 #### [facility] [address] [facility] [place] [address], USAHematocrit (Bld) [Volume fraction]27.8 %Low36.0-45.0The [facility] HospitalComment on above:Order Comment: No: Do not add to previous drawPerformed By: #### 01713, 07261, 39594, 15259 #### [facility] [address] [facility] [place] [address], [facility] CENTERHemoglobin (Bld) [Mass/Vol]8.4 g/dLLow12.0-15.0The [facility] HospitalComment on above:Order Comment: No: Do not add to previous drawPerformed By: #### 68829, 78589, 20462, 93285 #### [facility] [address] [place] [address], USAMCH (RBC) [Entitic mass]29.8 faOogdtz34.0-33.0The [facility] HospitalComment on above:Order Comment: No: Do not add to previous drawPerformed By: #### 69270, 26479, 03596, 70135 #### [facility] [address] [place] [address], [facility] CENTERMCHC (RBC) [Mass/Vol]30.2 g/dLLow32.0-35.0The [facility] HospitalComment on above:Order Comment: No: Do not add to previous drawPerformed By: #### 61571, 72775, 94916, 81367 #### [facility] [address] [place] [address], [facility] CENTERMCV (RBC) [Entitic vol]98.6 nDGaqh59.0-98.0The [facility] HospitalComment on above:Order Comment: No: Do not add to previous drawPerformed By: #### 00735, 41091, 07124, 63708 #### [facility] [address] [place] [address], USANucleated RBC/100 WBC (Bld) [Ratio]0 %Normal0-0The [facility] HospitalComment on above:Order Comment: No: Do not add to previous drawPerformed By: #### 54597, 68882, 32902, 92622 #### [facility] [address] [place] [address], USAPLAT VYN844 10*3/oVWuzqip040-877Qew [facility] HospitalComment on above:Order Comment: No: Do not add to previous draw Performed By: #### 22845, 72343, 50027, 81077 #### [facility] [address] [place] [address], USARBC (Bld) [#/Vol]2.82 10*6/uLLow3.80-5.00The [facility] HospitalComment on above:Order Comment: No: Do not add to previous drawPerformed By: #### 11677, 66132, 37468, 61617 #### [facility] [address] [place] [address], [facility] CENTERWBC (Bld) [#/Vol]7.35 10*3/uLNormal4.00-10.60The [facility] HospitalComment on above:Order Comment: No: Do not add to previous drawPerformed By: #### 34831, 20226, 05885, 73618 #### [facility] [address] [place] [address], USABASIC METABOLIC PANELon 68-12-6818Jbvsphc [Mass/Vol]9.0 mg/dLNormal8.6-10.3The [facility] HospitalComment on above:Order Comment: No: Do not add to previous drawPerformed By: #### 94528, 66583, 56410, 63791 #### [facility] [address] [place] [address], USAChloride [Moles/Vol]106 mmol/YDwjuvk60-035Izl [facility] HospitalComment on above:Order Comment: No: Do not add to previous drawPerformed By: #### 94336, 74413, 54376, 38840 #### [facility] [address] [place] [address], USACO2 [Moles/Vol]29 mmol/PLormyn31-25Piu [facility] HospitalComment on above:Order Comment: No: Do not add to previous draw Performed By: #### 26398, 13981, 13551, 05481 #### [facility] [address] [place] [address], USACreatinine [Mass/Vol]1.33 mg/dLHigh0.60-1.20The [facility] HospitalComment on above:Order Comment: No: Do not add to previous drawPerformed By: #### 84112, 98890, 52372, 63980 #### [facility] [address] [place] [address], USAGFR/1.73 sq M predicted among blacks MDRD (S/P/Bld) [Vol rate/Area]47 ml/min/1.73sq mAbnormal>60The [facility] Comment on above:Order Comment: No: Do not add to previous drawResult Comment: Calculation may not be valid for patients over 70 yearsPerformed By: #### 87602, 43468, 20534, 62431 #### [facility] [address] [place] [address], USAGFR/1.73 sq M predicted among non-blacks MDRD (S/P/Bld) [Vol rate/Area]39 ml/min/1.73sq mAbnormal>60The [facility] HospitalComment on above:Order Comment: No: Do not add to previous drawResult Comment: Calculation may not be valid for patients over 70 yearsPerformed By: #### 76000, 48942, 86891, 14492 #### [facility] [address] [facility] [place] [address], USAGlucose [Mass/Vol]92 mg/sXIxeles12-826Pji [facility] HospitalComment on above:Order Comment: No: Do not add to previous drawPerformed By: #### 94139, 96809, 36994, 01051 #### [facility] [address] [place] [address], USAPotassium [Moles/Vol]3.9 mmol/LNormal3.5-5.1The [facility] HospitalComment on above:Order Comment: No: Do not add to previous drawPerformed By: #### 97928, 42370, 65268, 55667 #### [facility] [address] [place] [address], USASodium [Moles/Vol]141 mmol/SShbtqe505-645Qvo [facility] HospitalComment on above:Order Comment: No: Do not add to previous drawPerformed By: #### 93951, 64347, 02004, 04589 #### [facility] [address] [place] [address], USAUrea nitrogen [Mass/Vol]34 mg/dLHigh7-25The [facility] HospitalComment on above:Order Comment: No: Do not add to previous drawPerformed By: #### 07539, 67266, 06540, 38735 #### [facility] [address] [place] [address], [facility] CENTERCBC COMPLETE BLOOD COUNTon 60-40-9755Mijtnisezgf distribution width (RBC) [Ratio]----Nwfktu42.5-15.0The [facility] HospitalComment on above:Order Comment: No: Do not add to previous draw Performed By: #### 64328, 83357, 10144, 68587 #### [facility] [address] [place] [address], USAHematocrit (Bld) [Volume fraction]27.6 %Low36.0-45.0The [facility] HospitalComment on above:Order Comment: No: Do not add to previous drawPerformed By: #### 60496, 27824, 41088, 73334 #### [facility] [address] [place] [address], [facility] CENTERHemoglobin (Bld) [Mass/Vol]8.2 g/dLLow12.0-15.0The [facility] HospitalComment on above:Order Comment: No: Do not add to previous drawPerformed By: #### 08956, 83389, 52231, 97030 #### [facility] [address] [place] [address], [facility] (RBC) [Entitic mass]29.6 guRzijxq39.0-33.0The [facility] HospitalComment on above:Order Comment: No: Do not add to previous drawPerformed By: #### 97225, 43100, 57404, 18867 #### [facility] [address] [facility] [facility] [place] [address], [facility] CENTERMCHC (RBC) [Mass/Vol]29.7 g/dLLow32.0-35.0The [facility] HospitalComment on above:Order Comment: No: Do not add to previous drawPerformed By: #### 64152, 21336, 87940, 11507 #### [facility] [address] [place] [address], USAMCV (RBC) [Entitic vol]99.6 hOQgup60.0-98.0The [facility] HospitalComment on above:Order Comment: No: Do not add to previous drawPerformed By: #### 13189, 18240, 56551, 47807 #### [facility] [address] [place] [address], USANucleated RBC/100 WBC (Bld) [Ratio]0 %Normal0-0The [facility] HospitalComment on above:Order Comment: No: Do not add to previous drawPerformed By: #### 24400, 54050, 04804, 25594 #### [facility] [address] [place] [address], USAPLAT WQD466 10*3/bJOdeeny195-970Uli [facility] HospitalComment on above:Order Comment: No: Do not add to previous draw Performed By: #### 14938, 76577, 21805, 15464 #### [facility] [address] [facility] [facility] [place] [address], USARBC (Bld) [#/Vol]2.77 10*6/uLLow3.80-5.00The [facility] HospitalComment on above:Order Comment: No: Do not add to previous drawPerformed By: #### 37611, 01260, 84750, 24566 #### [facility] [address] [place] [address], USAWBC (Bld) [#/Vol]7.75 10*3/uLNormal4.00-10.60The [facility] HospitalComment on above:Order Comment: No: Do not add to previous drawPerformed By: #### 98478, 88701, 02711, 92050 #### [facility] [address] [place] [address], USACBC COMPLETE BLOOD COUNTon 58-25-8759Dqimoxbewxo distribution width (RBC) [Ratio]27.1 %High11.5-15.0The [facility] HospitalComment on above:Order Comment: No: Do not add to previous draw Performed By: #### 52083, 02759, 93629, 19171 #### [facility] [address] [place] [address], USAHematocrit (Bld) [Volume fraction]29.0 %Low36.0-45.0The [facility] HospitalComment on above:Order Comment: No: Do not add to previous drawPerformed By: #### 49349, 25761, 96326, 82714 #### [facility] [address] [place] [address], USAHemoglobin (Bld) [Mass/Vol]8.9 g/dLLow12.0-15.0The [facility] HospitalComment on above:Order Comment: No: Do not add to previous drawPerformed By: #### 66903, 44134, 13737, 46583 #### [facility] [address] [place] [address], [facility] (RBC) [Entitic mass]30.5 zuItyxxf24.0-33.0The [facility] HospitalComment on above:Order Comment: No: Do not add to previous drawPerformed By: #### 71673, 60472, 49526, 31537 #### [facility] [address] [place] [address], [facility] CENTERMCHC (RBC) [Mass/Vol]30.7 g/dLLow32.0-35.0The [facility] HospitalComment on above:Order Comment: No: Do not add to previous drawPerformed By: #### 99682, 36390, 83164, 64266 #### [facility] [address] [place] [address], [facility] CENTERMCV (RBC) [Entitic vol]99.3 nREsdq71.0-98.0The [facility] HospitalComment on above:Order Comment: No: Do not add to previous drawPerformed By: #### 33840, 12410, 61925, 97106 #### [facility] [address] [place] [address], USANucleated RBC/100 WBC (Bld) [Ratio]0 %Normal0-0The [facility] HospitalComment on above:Order Comment: No: Do not add to previous drawPerformed By: #### 27862, 21529, 46985, 21982 #### [facility] [address] [place] [address], USAPLAT CFK937 10*3/sTVvkzgi911-250Eeb [facility] HospitalComment on above:Order Comment: No: Do not add to previous draw Performed By: #### 37894, 55226, 17466, 08728 #### [facility] [address] [place] [address], USARBC (Bld) [#/Vol]2.92 10*6/uLLow3.80-5.00The [facility] HospitalComment on above:Order Comment: No: Do not add to previous drawPerformed By: #### 81472, 77331, 96386, 02552 #### [facility] [address] [place] [address], USAWBC (Bld) [#/Vol]9.20 10*3/uLNormal4.00-10.60The [facility] HospitalComment on above:Order Comment: No: Do not add to previous drawPerformed By: #### 72316, 96520, 97346, 69819 #### [facility] [address] [place] [address], USACOMP METABOLIC PANELon 87-48-1954Vndbjkn [Mass/Vol]3.7 g/dL Normal3.5-5.7The [facility] HospitalComment on above:Performed By: #### 48087, 92019, 57118, 09743 #### [facility] [address] [place] [address], USAALKALINE UIZDTP265 IU/CSczv39-011Hzb [facility] HospitalComment on above:Performed By: #### 57299, 57333, 32508, 21839 #### [facility] [address] [place] [address], USAALT [Catalytic activity/Vol]16 U/LNormal7-52The [facility] HospitalComment on above:Performed By: #### 64697, 03134, 09836, 31855 #### [facility] [address] [place] [address], USAAST [Catalytic activity/Vol]22 U/WWxyyka22-17Sqt [facility] HospitalComment on above:Performed By: #### 60448, 68520, 70747, 97040 #### [facility] [address] [place] [address], USABilirubin [Mass/Vol]1.1 mg/dLHigh0.3-1.0The [facility] HospitalComment on above:Performed By: #### 93508, 55529, 58066, 52029 #### [facility] [address] [facility] [place] [address], USACalcium [Mass/Vol]8.8 mg/dLNormal8.6-10.3The [facility] HospitalComment on above:Performed By: #### 26920, 46399, 57227, 46877 #### [facility] [address] [place] [address], USAChloride [Moles/Vol]107 mmol/QIqegfi97-544Gme [facility] HospitalComment on above:Performed By: #### 59392, 56685, 67651, 20874 #### [facility] [address] [place] [address], USACO2 [Moles/Vol]28 mmol/KIklkvn39-42Smz [facility] HospitalComment on above:Performed By: #### 66015, 30120, 09670, 78933 #### [facility] [address] [place] [address], USACreatinine [Mass/Vol]1.73 mg/dLHigh0.60-1.20The [facility] HospitalComment on above:Performed By: #### 54977, 15107, 79451, 38884 #### [facility] [address] [place] [address], USAGFR/1.73 sq M predicted among blacks MDRD (S/P/Bld) [Vol rate/Area]34 ml/min/1.73sq mAbnormal>60The [facility] Comment on above:Result Comment: Calculation may not be valid for patients over 70 yearsPerformed By: #### 61760, 29146, 85158, 31984 #### [facility] [address] [place] [address], USAGFR/1.73 sq M predicted among non-blacks MDRD (S/P/Bld) [Vol rate/Area]28 ml/min/1.73sq mAbnormal>60The [facility] HospitalComment on above:Result Comment: Calculation may not be valid for patients over 70 yearsPerformed By: #### 72344, 93464, 60365, 34202 #### [facility] [address] [place] [address], USAGlucose [Mass/Vol]98 mg/sKHhsmph64-882Iki [facility] HospitalComment on above:Performed By: #### 04321, 32040, 10398, 34598 #### [facility] [address] [place] [address], USAPotassium [Moles/Vol]4.6 mmol/LNormal3.5-5.1The [facility] HospitalComment on above:Performed By: #### 64165, 04107, 38368, 46014 #### [facility] [address] [place] [address], USAProtein [Mass/Vol]6.6 g/dLNormal6.0-8.3The [facility] HospitalComment on above:Performed By: #### 65063, 98335, 54579, 31729 #### [facility] [address] [place] [address], USASodium [Moles/Vol]141 mmol/VUezjpq022-860Thm [facility] HospitalComment on above:Performed By: #### 61656, 93995, 00202, 06624 #### [facility] [address] [place] [address], USAUrea nitrogen [Mass/Vol]42 mg/dLHigh7-25The [facility] HospitalComment on above:Performed By: #### 52728, 43369, 36648, 51535 #### [facility] [address] [facility] [place] [address], USACardiovascular Lab Reporton [id number] Lab ReportUnGalion Community Hospital [facility]: [id number] Physician: Kevon Trejo Abd Department of [facility] Service Date: 01/07/2019 Division of Birthdate: 1940 Cardiology Room #: 3CD [id number] [facility] [address] [place] [address] Cardiovascular Laboratory Report PNEUMATIC TESTER: Dr. Dedrick Washington, chart writer. INDICATION: This is an 78-year-old female with [...] The patient was also notified that a chart writer will be assisting during the course of [...] to the right internal jugular vein. Then, Rutledge sheath was inserted 6-Serbian x 11 cm. Then, under fluoroscopy guidance, [...] Serrano MD Date Trans: 01/07/2019 03:58 P/mmo DN_JN:[id number] cc: Edu Odonnell D.O. [facility]. [facility] [address]TtkovbSwz [facility] HospitalMAGNESIUM BLOODon 21-11-1758Qwljrccmm [Mass/Vol]1.9 mg/dLNormal1.9-2.7The [facility] HospitalComment on above:Order Comment: No: Do not add to previous draw Performed By: #### 97569, 89527, 88421, 93229 #### [facility] [address] [place] [address], [facility] CENTERPHOSPHORUS BLOODon 25-86-8469Dyrkxwqtb [Mass/Vol]2.8 mg/dL Normal2.5-5.0The [facility] HospitalComment on above:Order Comment: No: Do not add to previous drawPerformed By: #### 29564, 66760, 99057, 56088 #### [facility] [address] [place] [address], [facility] CENTERAPTTon 81-03-8185eWRI Coag (Bld) [Time]33.6 sNormal 25.0-35.0The [facility] HospitalComment on above:Order Comment: No: Do not add to previous drawResult Comment: ALL RESULTS MUST BE INTERPRETED WITH RESPECT TO BLOOD DRAWING ARTIFACT OR DILUTION ERROR OF ANTICOAGULANT AT THE TIME OF SAMPLING. THE APTT SHOULD NOT BE USED TO MONITOR UNFRACTIONATED HEPARIN THERAPY, THIS LABORATORY NO LONGER HAS AN ESTABLISHED THERAPEUTIC RANGE BASED ON THE APTT. IT IS RECOMMENDED THAT THE [facility] - HEPARIN ASSAY (ANTI-XA ACTIVITY) BE USED FOR THIS PURPOSE.Performed By: #### 23460, 66351, 18026, 03916 #### [facility] [address] [place] [address], [facility] CENTERBASIC METABOLIC PANELon 36-91-3276Gjygiuj [Mass/Vol]8.8 mg/dLNormal8.6-10.3The [facility] HospitalComment on above:Order Comment: No: Do not add to previous drawPerformed By: #### 69295, 64785, 70102, 49319 #### [facility] [address] [place] [address], USAChloride [Moles/Vol]103 mmol/JFuscif42-370Mkt [facility] HospitalComment on above:Order Comment: No: Do not add to previous drawPerformed By: #### 75689, 10177, 88696, 25726 #### [facility] [address] [place] [address], USACO2 [Moles/Vol]24 mmol/JRfeihv13-39Sqc [facility] HospitalComment on above:Order Comment: No: Do not add to previous draw Performed By: #### 48533, 34961, [id number], [id number] #### [facility] [address] [place] [address], USACreatinine [Mass/Vol]3.14 mg/dLHigh0.60-1.20The [facility] HospitalComment on above:Order Comment: No: Do not add to previous drawPerformed By: #### [id number], [id number], [id number], 10402 #### [facility] [address] [place] [address], USAGFR/1.73 sq M predicted among blacks MDRD (S/P/Bld) [Vol rate/Area]17 ml/min/1.73sq mAbnormal>60The [facility] Comment on above:Order Comment: No: Do not add to previous drawResult Comment: Calculation may not be valid for patients over 70 yearsPerformed By: #### [id number], [id number], [id number], 26129 #### [facility] [address] [place] [address], USAGFR/1.73 sq M predicted among non-blacks MDRD (S/P/Bld) [Vol rate/Area]14 ml/min/1.73sq mAbnormal>60The [facility]iffin HospitalComment on above:Order Comment: No: Do not add to previous drawResult Comment: Calculation may not be valid for patients over 70 yearsPerformed By: #### 67296, 99131, 91186, 36797 #### [facility] [address] [place] [address], USAGlucose [Mass/Vol]123 mg/gOThxm32-891Brj [facility] HospitalComment on above:Order Comment: No: Do not add to previous drawPerformed By: #### 84673, 35143, 10456, 66774 #### [facility] [address] [facility] [place] [address], USAPotassium [Moles/Vol]4.5 mmol/LNormal3.5-5.1The [facility] HospitalComment on above:Order Comment: No: Do not add to previous drawPerformed By: #### 58929, 90775, 97490, 15527 #### [facility] [address] [facility] [place] [address], USASodium [Moles/Vol]135 mmol/QGyf272-420Uln [facility] HospitalComment on above:Order Comment: No: Do not add to previous drawPerformed By: #### 00354, 08251, 97605, 55833 #### [facility] [address] [facility] [place] [address], USAUrea nitrogen [Mass/Vol]60 mg/dLHigh7-25The [facility] HospitalComment on above:Order Comment: No: Do not add to previous drawPerformed By: #### 50752, 87637, 70289, 28321 #### [facility] [address] [place] [address], USACBC W/DIFFon [id number] BASOPHILS0.0 10*3/uLNormal 0.0-0.2The [facility] HospitalComment on above:Order Comment: No: Do not add to previous drawPerformed By: #### 12311, 29193, 35006, 00782 #### [facility] [address] [place] [address], USAABS IMM GRANS0.1 10*3/uLNormal0.0-0.2The [facility] HospitalComment on above:Order Comment: No: Do not add to previous drawPerformed By: #### 33812, 15928, 02078, 85277 #### [facility] [address] [place] [address], USAABS NEUTROPHILS6.9 10*3/uLNormal1.6-7.6The [facility] HospitalComment on above:Order Comment: No: Do not add to previous drawPerformed By: #### 80403, 50051, 07823, 38109 #### [facility] [address] [facility] [place] [address], USAACANTHOCYTESSRegency Hospital Cleveland WestComment on above:Order Comment: No: Do not add to previous drawPerformed By: #### 10875, 95783, 69201, 83375 #### [facility] [address] [place] [address], USAANISOMarkSelect Medical Specialty Hospital - [facility] Comment on above:Order Comment: No: Do not add to previous drawPerformed By: #### 02921, 63571, 40767, 82748 #### [facility] [address] [place] [address], USABasophils/100 WBC (Bld)0.2 %Normal0.0-1.0The [facility] HospitalComment on above:Order Comment: No: Do not add to previous drawPerformed By: #### 01541, 70487, 49139, 19889 #### [facility] [address] [place] [address], USAELLIPTOCYTESSRegency Hospital Cleveland WestComment on above:Order Comment: No: Do not add to previous drawPerformed By: #### 86356, 20121, 55364, 45541 #### [facility] [address] [place] [address], USAEosinophils (Bld) [#/Vol]0.2 10*3/uLNormal0.0-0.5The [facility] HospitalComment on above:Order Comment: No: Do not add to previous drawPerformed By: #### 50493, 90787, 97375, 86900 #### [facility] [address] [place] [address], USAEosinophils/100 WBC (Bld)1.6 %Normal0.0-6.0The [facility] HospitalComment on above:Order Comment: No: Do not add to previous drawPerformed By: #### 67397, 59018, 70028, 58233 #### [facility] [address] [facility] [place] [address], USAErythrocyte distribution width (RBC) [Ratio]27.6 %High 11.5-15.0The [facility] HospitalComment on above:Order Comment: No: Do not add to previous drawPerformed By: #### 45626, 47686, 91474, 34374 #### [facility] [address] [facility] [facility] [place] [address], USAHematocrit (Bld) [Volume fraction]27.2 %Low36.0-45.0The [facility] HospitalComment on above:Order Comment: No: Do not add to previous drawPerformed By: #### 07940, 62389, 66501, 46629 #### [facility] [address] [facility] [facility] [place] [address], USAHemoglobin (Bld) [Mass/Vol]8.2 g/dLLow12.0-15.0The [facility] HospitalComment on above:Order Comment: No: Do not add to previous drawPerformed By: #### 84001, 39723, 45998, 54672 #### [facility] [address] [place] [address], USAIMMATURE GRANS0.5 %Normal0.0-1.0The [facility] HospitalComment on above:Order Comment: No: Do not add to previous draw Performed By: #### 39931, 43705, 31401, 70822 #### [facility] [address] [place] [address], USALymphocytes (Bld) [#/Vol]1.2 10*3/uLNormal1.2-4.0The [facility] HospitalComment on above:Order Comment: No: Do not add to previous drawPerformed By: #### 84059, 09115, 16824, 34921 #### [facility] [address] [place] [address], USALymphocytes/100 WBC (Bld)12.5 %Low20.0-45.0The [facility] HospitalComment on above:Order Comment: No: Do not add to previous drawPerformed By: #### 40157, 39127, 98139, 95534 #### [facility] [address] [facility] [place] [address], [facility] (RBC) [Entitic mass]29.5 ypXtnfwa61.0-33.0The [facility] HospitalComment on above:Order Comment: No: Do not add to previous drawPerformed By: #### 43116, 95984, 27303, 62266 #### [facility] [address] [facility] [facility] [place] [address], [facility]HC (RBC) [Mass/Vol]30.1 g/dLLow32.0-35.0The [facility] HospitalComment on above:Order Comment: No: Do not add to previous drawPerformed By: #### 19195, 00584, 89322, 45813 #### [facility] [address] [place] [address], USAMCV (RBC) [Entitic vol]97.8 iWXwtgll98.0-98.0The [facility] HospitalComment on above:Order Comment: No: Do not add to previous drawPerformed By: #### 06162, 30499, 32868, 39017 #### [facility] [address] [place] [address], USAMonocytes (Bld) [#/Vol]1.4 10*3/uLHigh0.1-1.0The [facility] HospitalComment on above:Order Comment: No: Do not add to previous drawPerformed By: #### 38749, 45380, 15184, 80855 #### [facility] [address] [place] [address], IYGJQXFI85.5 %High5.0-12.0The [facility] HospitalComment on above:Order Comment: No: Do not add to previous drawPerformed By: #### 55878, 54025, 95699, 23964 #### [facility] [address] [facility] [facility] [place] [address], USANeutrophils/100 WBC (Bld)70.7 %Nndxko02.0-72.0The [facility] HospitalComment on above:Order Comment: No: Do not add to previous drawPerformed By: #### 79858, 51518, 64469, 65099 #### [facility] [address] [place] [address], USANucleated RBC/100 WBC (Bld) [Ratio]0 %Normal0-0The [facility] HospitalComment on above:Order Comment: No: Do not add to previous drawPerformed By: #### 13422, 78579, 93450, 78984 #### [facility] [address] [place] [address], USAOVALOCYTESSlightNormalThe [facility] HospitalComment on above:Order Comment: No: Do not add to previous drawPerformed By: #### 92812, 91483, 47982, 55971 #### [facility] [address] [place] [address], USAPLAT CTW863 10*3/vQTdulbo432-249Urk [facility] HospitalComment on above:Order Comment: No: Do not add to previous draw Performed By: #### 14564, 00375, 30825, 06529 #### [facility] [address] [place] [address], USAPOIKModerateThe Jewish Hospital Comment on above:Order Comment: No: Do not add to previous drawPerformed By: #### 69429, 38883, 59351, 14843 #### [facility] [address] [place] [address], USAPOLMercy Health Perrysburg Hospital Comment on above:Order Comment: No: Do not add to previous drawPerformed By: #### 35977, 00998, 98062, 82322 #### [facility] [address] [place] [address], USARBC (Bld) [#/Vol]2.78 10*6/uLLow3.80-5.00The [facility] HospitalComment on above:Order Comment: No: Do not add to previous drawPerformed By: #### 10919, 72573, 21320, 71793 #### [facility] [address] [place] [address], USASCHISTOCYTESSRegency Hospital Cleveland WestComment on above:Order Comment: No: Do not add to previous drawPerformed By: #### 19833, 29561, 21561, 00206 #### [facility] [address] [place] [address], USAWBC (Bld) [#/Vol]9.76 10*3/uLNormal4.00-10.60The [facility] HospitalComment on above:Order Comment: No: Do not add to previous drawPerformed By: #### 68524, 96939, 27695, 45938 #### [facility] [address] [place] [address], USACPKon 51-20-3089LY [Catalytic activity/Vol]26 U/KBpe46-510 The [facility] HospitalComment on above:Performed By: #### 91485, 89203, 96142, 40652 #### [facility] [address] [place] [address], USAFERRITINon 70-22-1661Oqjykkud [Mass/Vol]288 ng/mLNormal -The [facility] HospitalComment on above:Performed By: #### 51355, 23672, 35383, 53343 #### [facility] [address] [place] [address], USAMAGNESIUM BLOODon 77-83-4413Wwrrihwtq [Mass/Vol]2.1 mg/dL Normal1.9-2.7The [facility] HospitalComment on above:Order Comment: No: Do not add to previous drawPerformed By: #### 55194, 19767, 70251, 22505 #### [facility] [address] [place] [address], USAPHOSPHORUS BLOODon 14-96-7383Awmskfgvg [Mass/Vol]3.9 mg/dL Normal2.5-5.0The [facility] HospitalComment on above:Order Comment: No: Do not add to previous drawPerformed By: #### 85903, 87176, 91237, 04058 #### [facility] [address] [place] [address], USAPROTHROMBIN TIMEon 16-17-8401WDH Coag (PPP) [Relative time] 2.22 {INR}High0.91-1.16The [facility] HospitalComment on above: Order Comment: No: Do not add to previous drawResult Comment: ACCCP RECOMMENDED INR FOR WARFARIN THERAPY ------- CONDITION INR PROPHYLAXIS OF VENOUS THROMBOSIS 2-3 (HIGH-RISK SURGERY) TREATMENT OF VENOUS THROMBOSIS 2-3 TREATMENT OF PULMONARY EMBOLISM 2-3 PREVENTION OF SYSTEMIC EMBOLISM: 2-3 ACUTE MYOCARDIAL INFARCTION TISSUE HEART VALVES VALVULAR HEART DISEASE ATRIAL FIBRILLATION RECURRENT SYSTEMIC EMBOLISM MECHANICAL HEART VALVE 2.5-3.5 FROM: ORAL ANTICOAGULANTS. MECHANISM OF ACTION, CLINICAL EFFECTIVENESS, AND OPTIMAL THERAPEUTIC RANGE. CHEST 1995;108:231S-246S.Performed By: #### 42934, 87235, 91497, 09976 #### [facility] [address] [place] [address], USAPT Coag (PPP) [Time]25.0 sHigh12.3-14.8The [facility] HospitalComment on above:Order Comment: No: Do not add to previous drawResult Comment: ALL RESULTS MUST BE INTERPRETED WITH RESPECT TO BLOOD DRAWING ARTIFACT OR DILUTION ERROR OF ANTICOAGULANT AT THE TIME OF SAMPLING.Performed By: #### 08645, 85705, 56767, 70966 #### [facility] [address] [place] [address], USATIBC- INCLUDES IRONon 84-26-9901SD JSENQXTGPJ31 %Normal 20-50The [facility] HospitalComment on above:Performed By: #### 15674, 99902, 50038, 20879 #### [facility] [address] [place] [address], USAIron [Mass/Vol]87 ug/nNBcfziy44-252Rvc [facility] HospitalComment on above:Performed By: #### 02583, 98225, 19341, 91230 #### [facility] [address] [place] [address], DPGZLES462 mcg/yQZggpvj622-565Aot [facility] HospitalComment on above:Performed By: #### 84039, 20514, 43271, 22840 #### [facility] [address] [place] [address], VEWJIWD339 mcg/mTAevatr907-617Gyl [facility] HospitalComment on above:Performed By: #### 45987, 04319, 86732, 12755 #### [facility] [address] [place] [address], USATRANSFERRINon 37-15-0986Tebtqgvkevr [Mass/Vol]282 mg/dL Dugvty125-900Zyn [facility] HospitalComment on above:Performed By: #### 81094, 00656, 88811, 33788 #### [facility] [address] [place] [address], USAANAon 99-99-0781Xyskdlb Ab IF (S) [Titer]<1:40Normal <1:40,1:40The [facility] HospitalComment on above:Order Comment: No: Do not add to previous drawPerformed By: #### 39339, 12221, 90579, 70631 #### [facility] [address] [place] [address], USABASIC METABOLIC PANELon 15-91-6648Tgtptxs [Mass/Vol]8.5 mg/dLLow8.6-10.3The [facility] HospitalComment on above:Order Comment: No: Do not add to previous drawPerformed By: #### 86242 #### [facility] [address] [facility] [place] [address], USAChloride [Moles/Vol]103 mmol/WXqhuho68-911Gxp [facility] HospitalComment on above:Order Comment: No: Do not add to previous drawPerformed By: #### 89963 #### [facility] [address] [place] [address], USACO2 [Moles/Vol]24 mmol/UVvokfj27-43Fbi [facility] HospitalComment on above:Order Comment: No: Do not add to previous draw Performed By: #### 95346 #### [facility] [address] [place] [address], USACreatinine [Mass/Vol]2.90 mg/dLHigh0.60-1.20The [facility] HospitalComment on above:Order Comment: No: Do not add to previous drawPerformed By: #### 65299 #### [facility] [address] [place] [address], USAGFR/1.73 sq M predicted among blacks MDRD (S/P/Bld) [Vol rate/Area]19 ml/min/1.73sq mAbnormal>60The [facility] Comment on above:Order Comment: No: Do not add to previous drawResult Comment: Calculation may not be valid for patients over 70 yearsPerformed By: #### 88963 #### [facility] [address] [place] [address], USAGFR/1.73 sq M predicted among non-blacks MDRD (S/P/Bld) [Vol rate/Area]16 ml/min/1.73sq mAbnormal>60The [facility] HospitalComment on above:Order Comment: No: Do not add to previous drawResult Comment: Calculation may not be valid for patients over 70 yearsPerformed By: #### 76923 #### [facility] [address] [place] [address], USAGlucose [Mass/Vol]142 mg/pNEvcn16-052Yck [facility] HospitalComment on above:Order Comment: No: Do not add to previous drawPerformed By: #### 84716 #### [facility] [address] [place] [address], USAPotassium [Moles/Vol]4.6 mmol/LNormal3.5-5.1The [facility] HospitalComment on above:Order Comment: No: Do not add to previous drawPerformed By: #### 00376 #### [facility] [address] [facility] [facility] [place] [address], USASodium [Moles/Vol]134 mmol/SIhj180-567Otv [facility] HospitalComment on above:Order Comment: No: Do not add to previous drawPerformed By: #### 39152 #### [facility] [address] [facility] [place] [address], USAUrea nitrogen [Mass/Vol]53 mg/dLHigh7-25The [facility] HospitalComment on above:Order Comment: No: Do not add to previous drawPerformed By: #### 52945 #### [facility] [address] [facility] [place] [address], USABNP (B-TYPE NATRIURETIC PEPTIDE)on 15-19-5947Avzrrwbfgpi peptide B (Bld) [Mass/Vol]616 pg/mLHigh0-100The [facility] HospitalComment on above:Order Comment: No: Do not add to previous drawResult Comment: Given the appropriate clinical setting a BNP result of >100 pg/mL indicates congestive heart failure.Performed By: #### 29091 #### [facility] [address] [place] [address], [facility]DI[facility] CENTERCBC W/DIFFon 70-50-6206JKJ BASOPHILS0.0 10*3/uLNormal 0.0-0.2The [facility] HospitalComment on above:Performed By: #### 86152 #### [facility] [address] [place] [address], [facility]DI[facility] MED[facility] CENTERABS IMM GRANS0.1 10*3/uLNormal0.0-0.2The [facility] HospitalComment on above:Performed By: #### 40391 #### [facility] [address] [place] [address], [facility]DI[facility] MED[facility] CENTERABS NEUTROPHILS7.6 10*3/uLNormal1.6-7.6The [facility] HospitalComment on above:Performed By: #### 75236 #### [facility] [address] [place] [address], USAACANTHOCYTESSRegency Hospital Cleveland WestComment on above:Performed By: #### 49000 #### [facility] [address] [place] [address], USAANISOMarkSelect Medical Specialty Hospital [facility] Comment on above:Performed By: #### 40605 #### [facility] [address] [facility] [facility] [place] [address], USABasophils/100 WBC (Bld)0.2 %Normal0.0-1.0The [facility] HospitalComment on above:Performed By: #### 44281 #### [facility] [address] [facility] [facility] [place] [address], USABURR CELLSSRegency Hospital Cleveland WestComment on above:Performed By: #### 21180 #### [facility] [address] [facility] [facility] [place] [address], USAELLIPTOCYTESSRegency Hospital Cleveland WestComment on above:Performed By: #### 51787 #### [facility] [address] [facility] [place] [address], USAEosinophils (Bld) [#/Vol]0.0 10*3/uLNormal0.0-0.5The [facility] HospitalComment on above:Performed By: #### 10919 #### [facility] [address] [place] [address], USAEosinophils/100 WBC (Bld)0.2 %Normal0.0-6.0The [facility] HospitalComment on above:Performed By: #### 85955 #### [facility] [address] [place] [address], USAErythrocyte distribution width (RBC) [Ratio]27.2 %High 11.5-15.0The [facility] HospitalComment on above:Result Comment: Result changed by [email or web address] on 01/05/2019 02:09. The previous value was ----.Performed By: #### 94690 #### [facility] [address] [place] [address], USAHematocrit (Bld) [Volume fraction]27.5 %Low36.0-45.0The [facility] HospitalComment on above:Result Comment: Result changed by [email or web address] on 01/05/2019 02:09. The previous value was 27.7.Performed By: #### 55293 #### [facility] [address] [facility] [place] [address], [facility]DI[facility] MEDICAL CENTERHemoglobin (Bld) [Mass/Vol]8.2 g/dLLow12.0-15.0The [facility] HospitalComment on above:Performed By: #### 39526 #### [facility] [address] [facility] [place] [address], USAIMMATURE GRANS0.6 %Normal0.0-1.0The [facility] HospitalComment on above:Performed By: #### 42339 #### [facility] [address] [facility] [place] [address], G[facility] INDI[facility] MEDICAL CENTERLymphocytes (Bld) [#/Vol]0.9 10*3/uLLow1.2-4.0The [facility] HospitalComment on above:Performed By: #### 29343 #### [facility] [address] [facility] [place] [address], USALymphocytes/100 WBC (Bld)9.0 %Low20.0-45.0The [facility] HospitalComment on above:Performed By: #### 45486 #### [facility] [address] [facility] [place] [address], USAMCH (RBC) [Entitic mass]29.3 bjAynsht06.0-33.0The [facility] HospitalComment on above:Result Comment: Result changed by [email or web address] on 01/05/2019 02:09. The previous value was 29.1.Performed By: #### 40149 #### [facility] [address] [place] [address], [facility]DI[facility] MED[facility] CENTERMCHC (RBC) [Mass/Vol]29.8 g/dLLow32.0-35.0The [facility] HospitalComment on above:Result Comment: Result changed by [email or web address] on 01/05/2019 02:09. The previous value was 29.6.Performed By: #### 33749 #### [facility] [address] [place] [address], [facility]DI[facility] MEDICAL CENTERMCV (RBC) [Entitic vol]98.2 pIOutx49.0-98.0The [facility] HospitalComment on above:Performed By: #### 88551 #### [facility] [address] [place] [address], USAMonocytes (Bld) [#/Vol]1.1 10*3/uLHigh0.1-1.0The [facility] HospitalComment on above:Performed By: #### 84359 #### [facility] [address] [place] [address], WZJHAUIN81.8 %Normal5.0-12.0The [facility] HospitalComment on above:Performed By: #### 10989 #### [facility] [address] [place] [address], USANeutrophils/100 WBC (Bld)78.2 %High40.0-72.0The [facility] HospitalComment on above:Performed By: #### 08418 #### [facility] [address] [place] [address], USANucleated RBC/100 WBC (Bld) [Ratio]0 %Normal0-0The [facility] HospitalComment on above:Performed By: #### 22828 #### [facility] [address] [place] [address], USAOTHER 1Checked by [place] M.D.NormalThe [facility] HospitalComment on above:Result Comment: Result changed by [email or web address] on 01/05/2019 09:19. The previous value was Preliminary report; verified report to follow.Performed By: #### 78015 #### [facility] [address] [place] [address], USAOVALOCYTESSlightThe Jewish HospitalComment on above:Performed By: #### 20226 #### [facility] [address] [place] [address], USAPLAT QZU132 10*3/tHQpknim137-883Ksw [facility] HospitalComment on above:Performed By: #### 80322 #### [facility] [address] [place] [address], USAPOIKModerateNoKettering Health [facility] Township Comment on above:Performed By: #### 15089 #### [facility] [address] [place] [address], USARBC (Bld) [#/Vol]2.80 10*6/uLLow3.80-5.00The [facility] HospitalComment on above:Result Comment: Result changed by [email or web address] on 01/05/2019 02:09. The previous value was 2.82.Performed By: #### 53011 #### [facility] [address] [place] [address], USASCHISTOCYTESSlightNoKettering Health Washington TownshipComment on above:Performed By: #### 20898 #### [facility] [address] [place] [address], USAWBC (Bld) [#/Vol]9.70 10*3/uLNormal4.00-10.60The [facility] HospitalComment on above:Result Comment: Result changed by [email or web address] on 01/05/2019 02:09. The previous value was 9.82.Performed By: #### 82233 #### [facility] [address] [facility] [place] [address], USACOMPLEMENT 3on 97-06-8975TDEIZTPCUH 389 mg/nDUpdpgb33-537 The [facility] HospitalComment on above:Order Comment: No: Do not add to previous drawPerformed By: #### 51627, 65199, 86772, 88535 #### [facility] [address] [facility] [place] [address], USACOMPLEMENT 4on 67-53-8999ZJIAYPHPLO 416 mg/eYYauwfg49-82Qfd [facility] HospitalComment on above:Order Comment: No: Do not add to previous drawPerformed By: #### 87869, 97134, 52132, 12627 #### [facility] [address] [facility] [place] [address], USACT CHEST WO CONTRASTon [id number] CHEST WO CONTRAST [facility] Department of Radiology [address] [place] [id number] Patient Name: JENIFER HERNANDEZ : 1940 Sex: F Age: Race: NA Pt. Location: [id number] Patient Status: I Ordered Date: 01/05/2019 8:15:00 AM Completed Date: 01/05/2019 11:36 AM Requesting Provider: AZUL PIPER Attending Provider: KENNEDI MARSHALL Report Copy To: Signs & Symptoms: Other History: See Comments Comments: R/O Interstitial Lung Disease, Prior echo with possible pulm htn. Exam: CT CHEST WO CONTRAST CT CHEST WO CONTRAST 01/05/2019 11:36 AM [...] anasarca. Electronically signed by:Christina Jules. Transcribed by: [email or web address], User Resident: Electronically Signed by: CHRISTINA JULES @ 01/06/2019 11:13 AMNormalThe [facility] HospitalComment on above:Order Comment: No: Do not add to previous drawIMMUNOFIXATION BLOODon 03-25-8567EvR [Mass/Vol]233 mg/dL Nugvdo11-373Prx [facility] HospitalComment on above:Order Comment: No: Do not add to previous drawPerformed By: #### [id number], [id number], [id number], [id number] #### [facility] [address] [place] [address], [place]IgG [Mass/Vol]1240 mg/[id number] [facility] HospitalComment on above:Order Comment: No: Do not add to previous drawPerformed By: #### [id number], [id number], [id number], [id number] #### [facility] [address] [place] [address], [place]IgM [Mass/Vol]52 mg/wUAhh66-580Iux [facility] HospitalComment on above:Order Comment: No: Do not add to previous draw Performed By: #### [id number], [id number], [id number], [id number] #### [facility] [address] [place] [address], USAIMMUNOFIXATIONSerum Immunofixation reveals: A NORMAL PATTERN. SEE SEPARATE REPORTNormalThe [facility] HospitalComment on above:Order Comment: No: Do not add to previous drawPerformed By: #### 16492, 64372, 22135, 81263 #### [facility] [address] [place] [address], USAKAPPA LIGHT CHN7.65 mg/dLHigh0.33-1.94The [facility] HospitalComment on above:Order Comment: No: Do not add to previous drawResult Comment: KF Repeated for verification.Performed By: #### 01796, 67968, 62883, 93416 #### [facility] [address] [place] [address], USAKAPPA/LAMDBA RATIO2.37 RATIOHigh0.26-1.65The [facility] HospitalComment on above:Order Comment: No: Do not add to previous drawResult Comment: For patients with renal impairment, use a kappa/lambda ratio of 0.37-3.10Performed By: #### 08291, 05748, 03808, 41854 #### [facility] [address] [place] [address], USALAMBDA LIGHT CHN3.23 mg/dLHigh0.57-2.63The [facility] HospitalComment on above:Order Comment: No: Do not add to previous drawResult Comment: LF Repeated for verification.Performed By: #### 25831, 47362, 03877, 28975 #### [facility] [address] [place] [address], USAOSMOLALITY URINEon 49-12-4288Rhgpshpxxk [Osmolality]325 mOsm/tkNsjlkn29-7172Eee [facility] HospitalComment on above: Order Comment: No: Do not add to previous drawPerformed By: #### 33687, 51780, 38665, 11691 #### [facility] [address] [place] [address], USAPROTEIN ELECT Joseph 95-03-7009Heuzbpk [Mass/Vol]5.9 g/dLLow 6.0-8.3The [facility] HospitalComment on above:Order Comment: No: Do not add to previous drawPerformed By: #### 01412, 85238, 27963, 46687 #### [facility] [address] [place] [address], USAProtein [Mass/Vol]NormalThe [facility] HospitalComment on above:Order Comment: No: Do not add to previous drawResult Comment: Hypoalbuminemia and greatly elevated alpha 2 fraction suggests nephrosis.Performed By: #### 36040, 23838, 57052, 33888 #### [facility] [address] [place] [address], USAPROTEIN ELECT URon 83-78-1765Xehpnbe [Mass/Vol]No abnormal bands seen.NormalThe [facility] HospitalComment on above:Order Comment: No: Do not add to previous drawPerformed By: #### 64103, 01461, 61094, 30930 #### [facility] [address] [place] [address], USAProtein [Mass/Vol]379.0 mg/dLNormalThe [facility] HospitalComment on above:Order Comment: No: Do not add to previous draw Result Comment: There are no established reference values for random urine specimensPerformed By: #### 33466, 68333, 42442, 99554 #### [facility] [address] [place] [address], USASODIUM URINE RANDOMon 15-86-9308Stbfzl (U) [Moles/Vol]14 mmol/LNormalThe [facility] HospitalComment on above:Order Comment: No: Do not add to previous drawResult Comment: There are no established reference values for random urine specimensPerformed By: #### 74031, 94138, 32758, 54891 #### [facility] [address] [place] [address], USAURINALYSIS REFLEXon 87-17-6424Yrjwenkegn (U)CLOUDYAbnormal CLEARThe [facility] HospitalComment on above:Order Comment: No: Do not add to previous drawPerformed By: #### 67947, 87736, 03841, 17304 #### [facility] [address] [place] [address], USABilirubin [Mass/Vol]NegativeNormalNEGATIVEThe [facility] HospitalComment on above:Order Comment: No: Do not add to previous drawPerformed By: #### 14682, 10159, 73620, 85717 #### [facility] [address] [place] [address], USABLOODNegativeNormalNEGATIVEThe [facility] HospitalComment on above:Order Comment: No: Do not add to previous drawPerformed By: #### 91702, 79839, 92705, 84725 #### [facility] [address] [place] [address], USACALCIUM OXALATE CRYSTALOCCAbnormalNONE SEENThe [facility] HospitalComment on above:Order Comment: No: Do not add to previous drawPerformed By: #### 85951, 78588, 10266, 64675 #### [facility] [address] [place] [address], USAColor (U)AMBERAbnormalYELLOWThe [facility] HospitalComment on above:Order Comment: No: Do not add to previous draw Performed By: #### 66409, 54037, 51486, 44979 #### [facility] [address] [place] [address], USAEPISMANYAbnormalFEW,OCC,NONE SEENThe [facility] HospitalComment on above:Order Comment: No: Do not add to previous draw Performed By: #### 32507, 07723, 50684, 54513 #### [facility] [address] [place] [address], USAGlucose [Mass/Vol]NegativeNormalNEGATIVEThe [facility] HospitalComment on above:Order Comment: No: Do not add to previous drawPerformed By: #### 09753, 09123, 74080, 70954 #### [facility] [address] [place] [address], USAGRANULAR CASTS6-8AbnormalNONE SEENThe [facility] HospitalComment on above:Order Comment: No: Do not add to previous draw Performed By: #### 37621, 59585, 70353, 16060 #### [facility] [address] [place] [address], USAHYALINE CASTS4-6AbnormalNONE SEENThe [facility] HospitalComment on above:Order Comment: No: Do not add to previous draw Performed By: #### 06785, 68735, 85903, 10633 #### [facility] [address] [place] [address], USAKETONENegativeNormalNEGATIVEThe [facility] HospitalComment on above:Order Comment: No: Do not add to previous draw Performed By: #### 26692, 82968, 71333, 77939 #### [facility] [address] [place] [address], USALEUK ESTERLARGEAbnormalNEGATIVEThe [facility] HospitalComment on above:Order Comment: No: Do not add to previous draw Performed By: #### 66581, 88518, 30816, 52529 #### [facility] [address] [place] [address], USAMUCUS THREADSFEWAbnormalNONE SEENThe [facility] HospitalComment on above:Order Comment: No: Do not add to previous draw Performed By: #### 09264, 53651, 48762, 43353 #### [facility] [address] [place] [address], USANitrite Ql (U)NegativeNormalNEGATIVEThe [facility] HospitalComment on above:Order Comment: No: Do not add to previous drawPerformed By: #### 01497, 72386, 92366, 03597 #### [facility] [address] [place] [address], USApH (Bld)5.0Cfmvde3.0-8.0The [facility] HospitalComment on above:Order Comment: No: Do not add to previous drawPerformed By: #### 29297, 42341, 93656, 33906 #### [facility] [address] [place] [address], USAProtein (U) [Mass/Vol]100 mg/dLAbnormalNEGATIVEThe [facility] HospitalComment on above:Order Comment: No: Do not add to previous drawPerformed By: #### 05124, 13273, 57479, 32665 #### [facility] [address] [facility] [place] [address], [facility]DI[facility] MEDICAL CENTERRBC (U) [#/Vol]0-2AbnormalNONE SEENSt. Rita's HospitalComment on above:Order Comment: No: Do not add to previous draw Performed By: #### 54307, 51016, 94144, 81850 #### [facility] [address] [facility] [place] [address], USASPEC GRAV1.163Rtifuk9.015-1.020The [facility] HospitalComment on above:Order Comment: No: Do not add to previous draw Performed By: #### 43074, 33607, 53820, 27199 #### [facility] [address] [place] [address], USAUA COMMENT The [facility]edo Medical CenterComment on above:Order Comment: No: Do not add to previous draw Performed By: #### 96171, 35680, 42161, 18216 #### [facility] [address] [facility] [place] [address], [facility]DI[facility] MEDICAL CENTERWBC FE86-177GvqlakmaJJXZ SEENSt. Rita's HospitalComment on above:Order Comment: No: Do not add to previous draw Performed By: #### 86461, 08473, 20571, 08324 #### [facility] [address] [place] [address], USAURINE CONCEPCION STAIN/EOSon 12-44-5161LFIJDOSSYW SMEARNONE SEENNoRegency Hospital Cleveland WestComment on above:Order Comment: No: Do not add to previous drawSelect Medical Specialty Hospital - ColumbusComment on above:Order Comment: No: Do not add to previous drawResult Comment: Test Performed by [employer] [address] [place] [address] - Released 01/06/2019 17:38US RENALon [id number] RENAL [facility] Department of Radiology [address] [place] [id number] Patient Name: JENIFER HERNANDEZ : 1940 Sex: F Age: Race: NA Pt. Location: [id number] Patient Status: I Ordered Date: 01/05/2019 2:15:00 AM Completed Date: 01/05/2019 10:07 AM Requesting Provider: KENNETH NICHOLS Attending Provider: KENNEDI MARSHALL Report Copy To: Signs & Symptoms: Increased Creatinine History: See Comments Comments: Other, ANSELMO Exam: US RENAL Addendum Begins The first line of the [...] effusion. Electronically signed by:Los Lutz. Transcribed by: [id number], User Resident: Electronically Signed by: LOS LUTZ @ 01/05/2019 03:14 PMNormalThe [facility] HospitalComment on above:Order Comment: No: Do not add to previous drawBASIC METABOLIC PANELon 66-38-3210Vevnywh [Mass/Vol]9.2 mg/dLNormal8.6-10.3The [facility] HospitalComment on above:Order Comment: No: Do not add to previous drawPerformed By: #### 78214 #### [facility] [address] [place] [address], USAChloride [Moles/Vol]106 mmol/FAvpydx04-000Lrm [facility] HospitalComment on above:Order Comment: No: Do not add to previous drawPerformed By: #### 94354 #### [facility] [address] [place] [address], USACO2 [Moles/Vol]31 mmol/RPziwbm35-25Mcg [facility] HospitalComment on above:Order Comment: No: Do not add to previous draw Performed By: #### 03130 #### [facility] [address] [place] [address], USACreatinine [Mass/Vol]1.01 mg/dLNormal0.60-1.20The [facility] HospitalComment on above:Order Comment: No: Do not add to previous drawPerformed By: #### 28055 #### [facility] [address] [place] [address], USAGFR/1.73 sq M predicted among blacks MDRD (S/P/Bld) [Vol rate/Area]mL/min/{1.73_m2}Normal>60The [facility] Comment on above:Order Comment: No: Do not add to previous drawResult Comment: Calculation may not be valid for patients over 70 yearsPerformed By: #### 16544 #### [facility] [address] [place] [address], USAGFR/1.73 sq M predicted among non-blacks MDRD (S/P/Bld) [Vol rate/Area]53 ml/min/1.73sq mAbnormal>60The [facility] HospitalComment on above:Order Comment: No: Do not add to previous drawResult Comment: Calculation may not be valid for patients over 70 yearsPerformed By: #### 40395 #### [facility] [address] [place] [address], USAGlucose [Mass/Vol]93 mg/oRFycefd65-422Tcp [facility] HospitalComment on above:Order Comment: No: Do not add to previous drawPerformed By: #### 52253 #### [facility] [address] [place] [address], USAPotassium [Moles/Vol]3.2 mmol/LLow3.5-5.1The [facility] HospitalComment on above:Order Comment: No: Do not add to previous drawPerformed By: #### 11399 #### [facility] [address] [place] [address], USASodium [Moles/Vol]145 mmol/WVkqizr064-205Ayo [facility] HospitalComment on above:Order Comment: No: Do not add to previous drawPerformed By: #### 54133 #### [facility] [address] [place] [address], USAUrea nitrogen [Mass/Vol]31 mg/dLHigh7-25The [facility] HospitalComment on above:Order Comment: No: Do not add to previous drawPerformed By: #### 10933 #### [facility] [address] [place] [address], USACBC COMPLETE BLOOD COUNTon 52-96-7367Gokkgnlzcym distribution width (RBC) [Ratio]17.2 %High11.5-15.0The [facility] HospitalComment on above:Order Comment: No: Do not add to previous draw Performed By: #### 73895 #### [facility] [address] [place] [address], USAHematocrit (Bld) [Volume fraction]27.2 %Low36.0-45.0The [facility] HospitalComment on above:Order Comment: No: Do not add to previous drawPerformed By: #### 52013 #### [facility] [address] [place] [address], USAHemoglobin (Bld) [Mass/Vol]7.9 g/dLLow12.0-15.0The [facility] HospitalComment on above:Order Comment: No: Do not add to previous drawPerformed By: #### 27461 #### [facility] [address] [place] [address], [facility] CENTERMCH (RBC) [Entitic mass]27.1 ydExhnvx05.0-33.0The [facility] HospitalComment on above:Order Comment: No: Do not add to previous drawPerformed By: #### 35040 #### [facility] [address] [place] [address], [facility] MED[facility] CENTERMCHC (RBC) [Mass/Vol]29.0 g/dLLow32.0-35.0The [facility] HospitalComment on above:Order Comment: No: Do not add to previous drawPerformed By: #### 73171 #### [facility] [address] [place] [address], [facility] CENTERMCV (RBC) [Entitic vol]93.2 iQNfrogf07.0-98.0The [facility] HospitalComment on above:Order Comment: No: Do not add to previous drawPerformed By: #### 18765 #### [facility] [address] [place] [address], USANucleated RBC/100 WBC (Bld) [Ratio]0 %Normal0-0The [facility] HospitalComment on above:Order Comment: No: Do not add to previous drawPerformed By: #### 96250 #### [facility] [address] [place] [address], USAPLAT PHH508 10*3/rFAeqxse836-710Jqe [facility] HospitalComment on above:Order Comment: No: Do not add to previous draw Performed By: #### 69143 #### [facility] [address] [place] [address], USARBC (Bld) [#/Vol]2.92 10*6/uLLow3.80-5.00The [facility] HospitalComment on above:Order Comment: No: Do not add to previous drawPerformed By: #### 42318 #### [facility] [address] [place] [address], USAWBC (Bld) [#/Vol]7.05 10*3/uLNormal4.00-10.60The [facility] HospitalComment on above:Order Comment: No: Do not add to previous drawPerformed By: #### 64032 #### [facility] [address] [place] [address], USABASIC METABOLIC PANELon 08-20-8207Qcnmxni [Mass/Vol]9.5 mg/dLNormal8.6-10.3The [facility] HospitalComment on above:Order Comment: No: Do not add to previous drawPerformed By: #### 01994 #### [facility] [address] [place] [address], USAChloride [Moles/Vol]103 mmol/RVgohkq62-880Amb [facility] HospitalComment on above:Order Comment: No: Do not add to previous drawPerformed By: #### 77307 #### [facility] [address] [place] [address], USACO2 [Moles/Vol]34 mmol/NBomd03-77Kaw [facility] HospitalComment on above:Order Comment: No: Do not add to previous draw Performed By: #### 31606 #### [facility] [address] [place] [address], USACreatinine [Mass/Vol]1.09 mg/dLNormal0.60-1.20The [facility] HospitalComment on above:Order Comment: No: Do not add to previous drawPerformed By: #### 87347 #### [facility] [address] [place] [address], USAGFR/1.73 sq M predicted among blacks MDRD (S/P/Bld) [Vol rate/Area]59 ml/min/1.73sq mAbnormal>60The [facility] Comment on above:Order Comment: No: Do not add to previous drawResult Comment: Calculation may not be valid for patients over 70 yearsPerformed By: #### 59093 #### [facility] [address] [place] [address], USAGFR/1.73 sq M predicted among non-blacks MDRD (S/P/Bld) [Vol rate/Area]48 ml/min/1.73sq mAbnormal>60The [facility] HospitalComment on above:Order Comment: No: Do not add to previous drawResult Comment: Calculation may not be valid for patients over 70 yearsPerformed By: #### 70432 #### [facility] [address] [place] [address], USAGlucose [Mass/Vol]149 mg/jFIzmh25-112Dwy [facility] HospitalComment on above:Order Comment: No: Do not add to previous drawPerformed By: #### 42843 #### [facility] [address] [place] [address], USAPotassium [Moles/Vol]3.9 mmol/LNormal3.5-5.1The [facility] HospitalComment on above:Order Comment: No: Do not add to previous drawPerformed By: #### 72699 #### [facility] [address] [place] [address], USASodium [Moles/Vol]144 mmol/POgtszk846-227Glp [facility] HospitalComment on above:Order Comment: No: Do not add to previous drawPerformed By: #### 30051 #### [facility] [address] [place] [address], USAUrea nitrogen [Mass/Vol]29 mg/dLHigh7-25The [facility] HospitalComment on above:Order Comment: No: Do not add to previous drawPerformed By: #### 53594 #### [facility] [address] [place] [address], USAHEMATOCRITon 92-78-1679Maagywqxwg (Bld) [Volume fraction] 28.3 %Low36.0-45.0The [facility] HospitalComment on above:Order Comment: No: Do not add to previous drawPerformed By: #### 05267, 83301 ####[facility] [facility] [place] [address], [facility] HEMOGLOBINon 76-44-5268Wjcafzrbfk (Bld) [Mass/Vol]8.2 g/dLLow12.0-15.0The [facility] HospitalComment on above:Order Comment: No: Do not add to previous drawPerformed By: #### 61806, 43447 ####[facility] [place] [address], [facility] CENTERMAGNESIUM BLOODon 89-39-1733Vtipymorf [Mass/Vol]1.8 mg/dLLow1.9-2.7The [facility] HospitalComment on above:Order Comment: No: Do not add to previous draw Performed By: #### 26821, 86749 ####[facility] [place] [address], USAANAon 45-24-9079Lunhpys Ab IF (S) [Titer] <1:40Normal<1:40,1:40The [facility] HospitalComment on above: Order Comment: No: Do not add to previous drawPerformed By: #### 75185 #### [facility] [address] [place] [address], USABASIC METABOLIC PANELon 30-99-6327Szucpuz [Mass/Vol]9.2 mg/dLNormal8.6-10.3The [facility] HospitalComment on above:Order Comment: No: Do not add to previous drawPerformed By: #### 04997 ####[facility] [place] [address], USAChloride [Moles/Vol]103 mmol/XCpxqns80-570Cye [facility] HospitalComment on above:Order Comment: No: Do not add to previous drawPerformed By: #### 64733 ####[facility] [place] [address], [place] CO2 [Moles/Vol]30 mmol/JBbfccz99-42Vha [facility] Comment on above:Order Comment: No: Do not add to previous drawPerformed By: #### 28354 ####[facility] [place] [address], USACreatinine [Mass/Vol]1.05 mg/dLNormal0.60-1.20The [facility] HospitalComment on above:Order Comment: No: Do not add to previous draw Performed By: #### 79726 ####[facility] [place] [address], USAGFR/1.73 sq M predicted among blacks MDRD (S/P/Bld) [Vol rate/Area]mL/min/{1.73_m2}Normal>60The [facility] Comment on above:Order Comment: No: Do not add to previous drawResult Comment: Calculation may not be valid for patients over 70 yearsPerformed By: #### 72286 ####[facility] [place] [address], [facility] GFR/1.73 sq M predicted among non-blacks MDRD (S/P/Bld) [Vol rate/Area]50 ml/min/1.73sq mAbnormal>60The [facility] HospitalComment on above:Order Comment: No: Do not add to previous drawResult Comment: Calculation may not be valid for patients over 70 yearsPerformed By: #### 40933 ####[facility] [place] [address], [place] Glucose [Mass/Vol]116 mg/aNDedf75-081Ulw [facility] Comment on above:Order Comment: No: Do not add to previous drawPerformed By: #### 65073 ####[facility] [facility] [place] [address], USAPotassium [Moles/Vol]3.7 mmol/LNormal3.5-5.1The [facility] HospitalComment on above:Order Comment: No: Do not add to previous draw Performed By: #### 52635 ####[facility] [facility] [place] [address], USASodium [Moles/Vol]142 mmol/IOzckxj040-799Iic [facility] HospitalComment on above:Order Comment: No: Do not add to previous drawPerformed By: #### 59620 ####[facility] [facility] [place] [address], USAUrea nitrogen [Mass/Vol]28 mg/dL High7-25The [facility] HospitalComment on above:Order Comment: No: Do not add to previous drawPerformed By: #### 17158 ####[facility] [facility] [place] [address], USACOMPLEMENT 3on 12-22-2018 COMPLEMENT 3123 mg/yPHznynn67-120Jkw [facility] HospitalComment on above:Order Comment: Yes: Add to Previous draw if ablePerformed By: #### 82029, 57038 ####[facility] [place] [address], USACOMPLEMENT 4on 69-97-7826LDCBOCMWZY 418 mg/rHHrpegg82-49Nmj [facility] HospitalComment on above:Order Comment: Yes: Add to Previous draw if ablePerformed By: #### 21260, 99604 ####[facility] [place] [address], USAHEMOGLOBINon 12-22-2018 Hemoglobin (Bld) [Mass/Vol]7.8 g/dLLow12.0-15.0The [facility] HospitalComment on above:Order Comment: No: Do not add to previous drawPerformed By: #### 47515 ####[facility] [place] [address], USAPROTEIN ELECT Joseph 18-49-5153Msbwvdd [Mass/Vol]6.2 g/dLNormal 6.0-8.3The [facility] HospitalComment on above:Order Comment: Yes: Add to Previous draw if ablePerformed By: #### 35331 ####[facility] [place] [address], USAProtein [Mass/Vol] NormalThe [facility] HospitalComment on above:Order Comment: Yes: Add to Previous draw if ableResult Comment: Hypoalbuminemia is seen. This may be dilutional (from I.V. fluids) or nutritional in origin.Performed By: #### 29839 ####[facility] [place] [address], USABASIC METABOLIC PANELon 12-21-2018 Calcium [Mass/Vol]9.1 mg/dLNormal8.6-10.3The [facility] Comment on above:Order Comment: No: Do not add to previous drawPerformed By: #### 06742, 84388 ####[facility] [place] [address], USAChloride [Moles/Vol]104 mmol/BIptapk15-438Evi [facility] HospitalComment on above:Order Comment: No: Do not add to previous drawPerformed By: #### 54451, 24579 ####[facility] [place] [address], USACO2 [Moles/Vol]30 mmol/L Iysnbw92-27Apa [facility] HospitalComment on above:Order Comment: No: Do not add to previous drawPerformed By: #### 01133, 12335 ####[facility] [place] [address], [place] Creatinine [Mass/Vol]1.10 mg/dLNormal0.60-1.20The [facility] HospitalComment on above:Order Comment: No: Do not add to previous drawPerformed By: #### 39649, 10714 ####[facility] [place] [address], USAGFR/1.73 sq M predicted among blacks MDRD (S/P/Bld) [Vol rate/Area]58 ml/min/1.73sq mAbnormal>60The [facility] HospitalComment on above:Order Comment: No: Do not add to previous drawResult Comment: Calculation may not be valid for patients over 70 yearsPerformed By: #### 49959, 32415 ####[facility] [place] [address], USAGFR/1.73 sq M predicted among non-blacks MDRD (S/P/Bld) [Vol rate/Area]47 ml/min/1.73sq mAbnormal>60The [facility] HospitalComment on above:Order Comment: No: Do not add to previous drawResult Comment: Calculation may not be valid for patients over 70 yearsPerformed By: #### 09836, 48361 ####[facility] [place] [address], USAGlucose [Mass/Vol]88 mg/jCDrvyhe51-838Vjb [facility] HospitalComment on above:Order Comment: No: Do not add to previous drawPerformed By: #### 40288, 36109 ####[facility] [place] [address], USAPotassium [Moles/Vol]3.4 mmol/LLow3.5-5.1The [facility] HospitalComment on above:Order Comment: No: Do not add to previous drawPerformed By: #### 30280, 95402 ####[facility] [place] [address], USASodium [Moles/Vol]142 mmol/BHewazb497-553Vpz [facility] HospitalComment on above:Order Comment: No: Do not add to previous drawPerformed By: #### 49117, 10496 ####[facility] [place] [address], [place] Urea nitrogen [Mass/Vol]33 mg/dLHigh7-25The [facility] Comment on above:Order Comment: No: Do not add to previous drawPerformed By: #### 91716, 39324 ####[facility] [address], USAHEMOGLOBINon [id number] (Bld) [Mass/Vol]7.7 g/dLLow12.0-15.0The [facility] HospitalComment on above:Order Comment: No: Do not add to previous drawPerformed By: #### 36107 #### [facility] [address] [place] [address], USAMAGNESIUM BLOODon 33-61-6138Uprsfqyfi [Mass/Vol]1.8 mg/dL Low1.9-2.7The [facility] HospitalComment on above:Order Comment: No: Do not add to previous drawPerformed By: #### 81937, 92868 ####[facility] [place] [address], USABASIC METABOLIC PANELon 72-73-5312Vjnshyv [Mass/Vol]9.3 mg/dLNormal8.6-10.3The [facility] HospitalComment on above:Order Comment: No: Do not add to previous drawPerformed By: #### 76777 #### [facility] [address] [place] [address], USAChloride [Moles/Vol]102 mmol/QZrqorc32-998Jbw [facility] HospitalComment on above:Order Comment: No: Do not add to previous drawPerformed By: #### 06704 #### [facility] [address] [place] [address], USACO2 [Moles/Vol]32 mmol/SJkml13-38Stj [facility] HospitalComment on above:Order Comment: No: Do not add to previous draw Performed By: #### 96729 #### [facility] [address] [place] [address], USACreatinine [Mass/Vol]1.10 mg/dLNormal0.60-1.20The [facility] HospitalComment on above:Order Comment: No: Do not add to previous drawPerformed By: #### 80268 #### [facility] [address] [place] [address], USAGFR/1.73 sq M predicted among blacks MDRD (S/P/Bld) [Vol rate/Area]58 ml/min/1.73sq mAbnormal>60The [facility] Comment on above:Order Comment: No: Do not add to previous drawResult Comment: Calculation may not be valid for patients over 70 yearsPerformed By: #### 10659 #### [facility] [address] [place] [address], USAGFR/1.73 sq M predicted among non-blacks MDRD (S/P/Bld) [Vol rate/Area]47 ml/min/1.73sq mAbnormal>60The [facility] HospitalComment on above:Order Comment: No: Do not add to previous drawResult Comment: Calculation may not be valid for patients over 70 yearsPerformed By: #### 38065 #### [facility] [address] [place] [address], USAGlucose [Mass/Vol]120 mg/gKQobz76-002Whn [facility] HospitalComment on above:Order Comment: No: Do not add to previous drawPerformed By: #### 98040 #### [facility] [address] [place] [address], USAPotassium [Moles/Vol]3.3 mmol/LLow3.5-5.1The [facility] HospitalComment on above:Order Comment: No: Do not add to previous drawPerformed By: #### 82747 #### [facility] [address] [place] [address], USASodium [Moles/Vol]142 mmol/GHcbisk515-844Vfi [facility] HospitalComment on above:Order Comment: No: Do not add to previous drawPerformed By: #### 11093 #### [facility] [address] [place] [address], USAUrea nitrogen [Mass/Vol]36 mg/dLHigh7-25The [facility] HospitalComment on above:Order Comment: No: Do not add to previous drawPerformed By: #### 56570 #### [facility] [address] [place] [address], USACBC COMPLETE BLOOD COUNTon 56-56-8223Saycqkpjloj distribution width (RBC) [Ratio]15.8 %High11.5-15.0The [facility] HospitalComment on above:Order Comment: No: Do not add to previous draw Performed By: #### 00174 #### [facility] [address] [place] [address], USAHematocrit (Bld) [Volume fraction]25.4 %Low36.0-45.0The [facility] HospitalComment on above:Order Comment: No: Do not add to previous drawPerformed By: #### 74741 #### [facility] [address] [place] [address], [facility] MED[facility] CENTERHemoglobin (Bld) [Mass/Vol]7.8 g/dLLow12.0-15.0The [facility] HospitalComment on above:Order Comment: No: Do not add to previous drawPerformed By: #### 67681 #### [facility] [address] [place] [address], [facility]H (RBC) [Entitic mass]27.1 gjHuemgd63.0-33.0The [facility] HospitalComment on above:Order Comment: No: Do not add to previous drawPerformed By: #### 38328 #### [facility] [address] [place] [address], [facility] CENTERMCHC (RBC) [Mass/Vol]30.7 g/dLLow32.0-35.0The [facility] HospitalComment on above:Order Comment: No: Do not add to previous drawPerformed By: #### 07483 #### [facility] [address] [place] [address], [facility]V (RBC) [Entitic vol]88.2 lWAvwsti01.0-98.0The [facility] HospitalComment on above:Order Comment: No: Do not add to previous drawPerformed By: #### 80152 #### [facility] [address] [place] [address], USANucleated RBC/100 WBC (Bld) [Ratio]0 %Normal0-0The [facility] HospitalComment on above:Order Comment: No: Do not add to previous drawPerformed By: #### 95478 #### [facility] [address] [place] [address], USAPLAT DAW721 10*3/sCTfhjgp957-393Vro [facility] HospitalComment on above:Order Comment: No: Do not add to previous draw Performed By: #### 93378 #### [facility] [address] [place] [address], USARBC (Bld) [#/Vol]2.88 10*6/uLLow3.80-5.00The [facility] HospitalComment on above:Order Comment: No: Do not add to previous drawPerformed By: #### 38138 #### [facility] [address] [place] [address], USAWBC (Bld) [#/Vol]8.61 10*3/uLNormal4.00-10.60The [facility] HospitalComment on above:Order Comment: No: Do not add to previous drawPerformed By: #### 18020 #### [facility] [address] [place] [address], USAMAGNESIUM BLOODon 37-37-9873Qjszvcfmk [Mass/Vol]1.9 mg/dL Normal1.9-2.7The [facility] HospitalComment on above:Order Comment: No: Do not add to previous drawPerformed By: #### 42164 #### [facility] [address] [place] [address], USABASIC METABOLIC PANELon 53-88-0496Isiqrkr [Mass/Vol]9.2 mg/dLNormal8.6-10.3The [facility] HospitalComment on above:Order Comment: No: Do not add to previous drawPerformed By: #### 82997 #### [facility] [address] [place] [address], USAChloride [Moles/Vol]103 mmol/RYbanyj19-710Etd [facility] HospitalComment on above:Order Comment: No: Do not add to previous drawPerformed By: #### 69538 #### [facility] [address] [place] [address], USACO2 [Moles/Vol]30 mmol/OCmbpcq76-55Jhp [facility] HospitalComment on above:Order Comment: No: Do not add to previous draw Performed By: #### 57359 #### [facility] [address] [place] [address], USACreatinine [Mass/Vol]1.27 mg/dLHigh0.60-1.20The [facility] HospitalComment on above:Order Comment: No: Do not add to previous drawPerformed By: #### 98946 #### [facility] [address] [place] [address], USAGFR/1.73 sq M predicted among blacks MDRD (S/P/Bld) [Vol rate/Area]49 ml/min/1.73sq mAbnormal>60The [facility] Comment on above:Order Comment: No: Do not add to previous drawResult Comment: Calculation may not be valid for patients over 70 yearsPerformed By: #### 89191 #### [facility] [address] [place] [address], USAGFR/1.73 sq M predicted among non-blacks MDRD (S/P/Bld) [Vol rate/Area]41 ml/min/1.73sq mAbnormal>60The [facility] HospitalComment on above:Order Comment: No: Do not add to previous drawResult Comment: Calculation may not be valid for patients over 70 yearsPerformed By: #### 48704 #### [facility] [address] [place] [address], USAGlucose [Mass/Vol]162 mg/fSKoez62-445Gjk [facility] HospitalComment on above:Order Comment: No: Do not add to previous drawPerformed By: #### 29103 #### [facility] [address] [place] [address], USAPotassium [Moles/Vol]4.2 mmol/LNormal3.5-5.1The [facility] HospitalComment on above:Order Comment: No: Do not add to previous drawPerformed By: #### 17366 #### [facility] [address] [place] [address], USASodium [Moles/Vol]142 mmol/OMqmnbd379-682Owk [facility] HospitalComment on above:Order Comment: No: Do not add to previous drawPerformed By: #### 61277 #### [facility] [address] [place] [address], USAUrea nitrogen [Mass/Vol]43 mg/dLHigh7-25The [facility] HospitalComment on above:Order Comment: No: Do not add to previous drawPerformed By: #### 69644 #### [facility] [address] [place] [address], USACREATININE URINE RANDOMon 96-14-9357Lpzeifynmh [Mass/Vol] 32.0 mg/dLNoKettering Health Washington TownshipComment on above:Order Comment: No: Do not add to previous drawResult Comment: There are no established reference values for random urine specimensPerformed By: #### 36197 #### [facility] [address] [place] [address], USAFERRITINon 56-93-2521Nabnnbyk [Mass/Vol]20 ng/mLNormal 11-307The [facility] HospitalComment on above:Order Comment: No: Do not add to previous drawPerformed By: #### 55471 #### [facility] [address] [place] [address], USAHEMOGLOBINon 87-43-9807Bdythcqffi (Bld) [Mass/Vol]6.8 g/dL Low12.0-15.0The [facility] HospitalComment on above:Order Comment: No: Do not add to previous drawPerformed By: #### 75112 #### [facility] [address] [place] [address], USAMAGNESIUM BLOODon 83-87-0982Xafkzifih [Mass/Vol]1.6 mg/dL Low1.9-2.7The [facility] HospitalComment on above:Order Comment: No: Do not add to previous drawPerformed By: #### 37164 #### [facility] [address] [place] [address], USAPROTEIN ELECT URon 84-12-3288Rnvspdb [Mass/Vol]9.0 mg/dL NormalThe [facility] HospitalComment on above:Order Comment: No: Do not add to previous drawResult Comment: There are no established reference values for random urine specimensPerformed By: #### 97047 #### [facility] [address] [place] [address], USAProtein [Mass/Vol]URINE PROTEIN ELECTROPHORESIS NOT DONE; T.P. <10 MG/DLNoalThe [facility] HospitalComment on above: Order Comment: No: Do not add to previous drawPerformed By: #### 24464 #### [facility] [address] [place] [address], USATIBC- INCLUDES IRONon 97-14-6195EJ SATURATION8 %Bgm39-84Jah [facility] HospitalComment on above:Order Comment: No: Do not add to previous drawPerformed By: #### 74873 #### [facility] [address] [place] [address], USAIron [Mass/Vol]33 ug/uMKcv69-930Nkp [facility] HospitalComment on above:Order Comment: No: Do not add to previous draw Performed By: #### 97223 #### [facility] [address] [place] [address], UWKARPJ054 mcg/eHMiiwij931-943Nvh [facility] HospitalComment on above:Order Comment: No: Do not add to previous drawPerformed By: #### 33718 #### [facility] [address] [place] [address], OVTDEEZ036 mcg/jCFudt197-011Scf [facility] HospitalComment on above:Order Comment: No: Do not add to previous drawPerformed By: #### 24133 #### [facility] [address] [place] [address], USAUA,MICROSCOPIC REQUIREDon 41-97-9319Wganpnlima (U)CLEAR NormalCLEARThe [facility] HospitalComment on above:Order Comment: No: Do not add to previous drawPerformed By: #### 56942 #### [facility] [address] [place] [address], USABilirubin [Mass/Vol]NegativeNormalNEGATIVEThe [facility] HospitalComment on above:Order Comment: No: Do not add to previous drawPerformed By: #### 57052 #### [facility] [address] [place] [address], USABLOODNegativeNormalNEGATIVEThe [facility] HospitalComment on above:Order Comment: No: Do not add to previous drawPerformed By: #### 26860 #### [facility] [address] [place] [address], USAColor (U)STRAWAbnormalYELLOWThe [facility] HospitalComment on above:Order Comment: No: Do not add to previous draw Performed By: #### 05857 #### [facility] [address] [place] [address], USAEPISMODAbnormalFEW,OCC,NONE SEENThe [facility] HospitalComment on above:Order Comment: No: Do not add to previous draw Performed By: #### 18494 #### [facility] [address] [place] [address], USAGlucose [Mass/Vol]NegativeNormalNEGATIVEThe [facility] HospitalComment on above:Order Comment: No: Do not add to previous drawPerformed By: #### 98455 #### [facility] [address] [place] [address], USAHYALINE CASTS2 /LPFAbnormalNONE SEENThe [facility] HospitalComment on above:Order Comment: No: Do not add to previous drawPerformed By: #### 73466 #### [facility] [address] [place] [address], USAKETONENegativeNormalNEGATIVEThe [facility] HospitalComment on above:Order Comment: No: Do not add to previous draw Performed By: #### 09989 #### [facility] [address] [place] [address], USALEUK ESTERNegativeNormalNEGATIVEThe [facility] HospitalComment on above:Order Comment: No: Do not add to previous draw Performed By: #### 95888 #### [facility] [address] [place] [address], USANitrite Ql (U)NegativeNormalNEGATIVEThe [facility] HospitalComment on above:Order Comment: No: Do not add to previous drawPerformed By: #### 12651 #### [facility] [address] [place] [address], USApH (Bld)6.9Ixtsud2.0-8.0The [facility] HospitalComment on above:Order Comment: No: Do not add to previous drawPerformed By: #### 91491 #### [facility] [address] [place] [address], USAProtein [Mass/Vol]NegativeNormalNEGATIVEThe [facility] HospitalComment on above:Order Comment: No: Do not add to previous drawPerformed By: #### 73614 #### [facility] [address] [place] [address], USARBC (Bld) [#/Vol]0-2AbnormalNONE SEENThe [facility] HospitalComment on above:Order Comment: No: Do not add to previous drawPerformed By: #### 42178 #### [facility] [address] [facility] [place] [address], USASPEC GRAV1.225Avy5.015-1.020The [facility] HospitalComment on above:Order Comment: No: Do not add to previous draw Performed By: #### 25384 #### [facility] [address] [facility] [place] [address], USAWBC UA0-2AbnormalNONE SEENThe [facility] HospitalComment on above:Order Comment: No: Do not add to previous drawPerformed By: #### 61438 #### [facility] [address] [place] [address], USAUS RENALon 35-14-1016TV RENALUnMercy Health Fair[facility] Hospital Department of Radiology [address] [place] [address] Patient Name: JENIFER HERNANDEZ : 1940 Sex: F Age: Race: NA Pt. Location: [id number] Patient Status: I Ordered Date: 12/19/2018 1:20:00 PM Completed Date: 12/19/2018 05:04 PM Requesting Provider: FELISHA LUKE Attending Provider: KENNEDI MARSHALL Report Copy To: Signs & Symptoms: Increased Creatinine History: See Comments Comments: R/O Hydronephrosis Exam: US RENAL US RENAL 12/19/2018 5:04 PM EDT SIGNS [...] findings. Electronically signed by:Tyree Momin. Transcribed by: [email or web address], User Resident: JOSE CHASE Electronically Signed by: TYREE MOMIN @ 12/20/2018 03:17 PM I personally read this/these film(s) with this [facility] Hospital - AkronComment on above:Order Comment: No: Do not add to previous drawANTI C3 DATon 68-72-3479RVFF C3 DATNegativeThe Jewish HospitalComment on above:Performed By: #### 17797 #### [facility] [address] [place] [address], USAANTI IGG DATon 49-48-8556KYHJ IGG DATNegativeThe Jewish HospitalComment on above:Performed By: #### 54256 #### [facility] [address] [place] [address], USAANTIBODY IDENTIFICATIONon [id number] IDCThe Jewish HospitalComment on above:Performed By: #### 87754 #### [facility] [address] [place] [address], USABASIC METABOLIC PANELon 58-43-2543Svwyjww [Mass/Vol]9.2 mg/dLNormal8.6-10.3The [facility] HospitalComment on above:Order Comment: No: Do not add to previous drawPerformed By: #### 49806, 45892, 40242, 05817 #### [facility] [address] [place] [address], USAChloride [Moles/Vol]98 mmol/RVkidjz30-323Mts [facility] HospitalComment on above:Order Comment: No: Do not add to previous drawPerformed By: #### 70146, 14070, 43725, 81837 #### [facility] [address] [place] [address], USACO2 [Moles/Vol]30 mmol/RGfdfax33-41Ysd [facility] HospitalComment on above:Order Comment: No: Do not add to previous draw Performed By: #### 80356, 55290, 86829, 52700 #### [facility] [address] [place] [address], USACreatinine [Mass/Vol]1.59 mg/dLHigh0.60-1.20The [facility] HospitalComment on above:Order Comment: No: Do not add to previous drawPerformed By: #### 23088, 48099, 05847, 29732 #### [facility] [address] [place] [address], USAGFR/1.73 sq M predicted among blacks MDRD (S/P/Bld) [Vol rate/Area]38 ml/min/1.73sq mAbnormal>60The [facility] Comment on above:Order Comment: No: Do not add to previous drawResult Comment: Calculation may not be valid for patients over 70 yearsPerformed By: #### 83568, 58034, 15342, 16893 #### [facility] [address] [place] [address], USAGFR/1.73 sq M predicted among non-blacks MDRD (S/P/Bld) [Vol rate/Area]31 ml/min/1.73sq mAbnormal>60The [facility] HospitalComment on above:Order Comment: No: Do not add to previous drawResult Comment: Calculation may not be valid for patients over 70 yearsPerformed By: #### 92988, 68619, 06679, 95026 #### [facility] [address] [place] [address], USAGlucose [Mass/Vol]115 mg/pINkxn74-393Fdq [facility] HospitalComment on above:Order Comment: No: Do not add to previous drawPerformed By: #### 62944, 04682, 17742, 96636 #### [facility] [address] [facility] [place] [address], USAPotassium [Moles/Vol]3.1 mmol/LLow3.5-5.1The [facility] HospitalComment on above:Order Comment: No: Do not add to previous drawPerformed By: #### 71322, 49760, 25164, 54224 #### [facility] [address] [facility] [place] [address], USASodium [Moles/Vol]137 mmol/PUusqqq862-024Cvn [facility] HospitalComment on above:Order Comment: No: Do not add to previous drawPerformed By: #### 52289, 39712, 10790, 87340 #### [facility] [address] [facility] [place] [address], USAUrea nitrogen [Mass/Vol]53 mg/dLHigh7-25The [facility] HospitalComment on above:Order Comment: No: Do not add to previous drawPerformed By: #### 85777, 93646, 01714, 85259 #### [facility] [address] [place] [address], USACBC COMPLETE BLOOD COUNTon 74-16-5420Kbfslsmlvgr distribution width (RBC) [Ratio]15.9 %High11.5-15.0The [facility] HospitalComment on above:Order Comment: No: Do not add to previous draw Performed By: #### 08715 #### [facility] [address] [place] [address], USAHematocrit (Bld) [Volume fraction]21.4 %Low36.0-45.0The [facility] HospitalComment on above:Order Comment: No: Do not add to previous drawPerformed By: #### 62404 #### [facility] [address] [place] [address], USAHemoglobin (Bld) [Mass/Vol]6.5 g/dLLow12.0-15.0The [facility] HospitalComment on above:Order Comment: No: Do not add to previous drawPerformed By: #### 27079 #### [facility] [address] [place] [address], [facility] CENTERMCH (RBC) [Entitic mass]26.5 pgLow27.0-33.0The [facility] HospitalComment on above:Order Comment: No: Do not add to previous drawPerformed By: #### 34587 #### [facility] [address] [place] [address], [facility] CENTERMCHC (RBC) [Mass/Vol]30.4 g/dLLow32.0-35.0The [facility] HospitalComment on above:Order Comment: No: Do not add to previous drawPerformed By: #### 08332 #### [facility] [address] [place] [address], [facility] CENTERMCV (RBC) [Entitic vol]87.3 rPLyuwdw62.0-98.0The [facility] HospitalComment on above:Order Comment: No: Do not add to previous drawPerformed By: #### 96333 #### [facility] [address] [place] [address], USANucleated RBC/100 WBC (Bld) [Ratio]0 %Normal0-0The [facility] HospitalComment on above:Order Comment: No: Do not add to previous drawPerformed By: #### 29075 #### [facility] [address] [place] [address], USAPLAT FVM813 10*3/nDJdiirg178-085Obl [facility] HospitalComment on above:Order Comment: No: Do not add to previous draw Performed By: #### 98871 #### [facility] [address] [place] [address], USARBC (Bld) [#/Vol]2.45 10*6/uLLow3.80-5.00The [facility] HospitalComment on above:Order Comment: No: Do not add to previous drawPerformed By: #### 91470 #### [facility] [address] [place] [address], USAWBC (Bld) [#/Vol]7.40 10*3/uLNormal4.00-10.60The [facility] HospitalComment on above:Order Comment: No: Do not add to previous drawPerformed By: #### 00309 #### [facility] [address] [place] [address], USACardiovascular Lab Reporton [id number] Lab ReportUnGalion Community Hospital [facility]: [id number] Physician: Herber Chi Department of Missy Flores Medicine Service Date: 12/17/2018 Division of Birthdate: 1940 Cardiology Room #: 3CD [id number] Adult Cardiovascular Services [facility] [address] [place], [place] [address] Cardiovascular Laboratory Report INDICATION: The patient is [...] signed informed consent. She was brought to laboratory technology teacher in a fasting state. The right neck area was prepped and draped in usual fashion. Using ultrasound guidance and micropuncture technique, the right internal jugular vein was accessed. A 6-Serbian x 11 cm sheath was placed. A 6-Serbian Thompson catheter was used for right heart [...] Flores M.D. Date Trans: 12/18/2018 08:22 Becky/sha DN_JN:[id number] cc: Edu Odonnell D.O. [address] [place] [address]JqajsrHsd [facility] HospitalHEMOGLOBINon 05-09-9069Jnnfehoimt (Bld) [Mass/Vol]7.3 g/dLLow12.0-15.0The [facility] HospitalComment on above:Order Comment: No: Do not add to previous drawPerformed By: #### 04101 #### [facility] [address] [place] [address], USAHemoglobin (Bld) [Mass/Vol]7.2 g/dLLow12.0-15.0The [facility] HospitalComment on above:Order Comment: No: Do not add to previous drawPerformed By: #### 14277 #### [facility] [address] [place] [address], USAHemoglobin (Bld) [Mass/Vol]6.9 g/dLLow12.0-15.0The [facility] HospitalComment on above:Order Comment: No: Do not add to previous drawPerformed By: #### 23930 #### [facility] [address] [place] [address], USAIRON BLOODon 35-92-9294Mtqf [Mass/Vol]19 ug/oVPcy57-786Grv [facility] HospitalComment on above:Order Comment: No: Do not add to previous drawPerformed By: #### 84071, 42655, 51859, 77772 #### [facility] [address] [place] [address], USAMAGNESIUM BLOODon 13-58-0760Qleenvdkx [Mass/Vol]1.8 mg/dL Low1.9-2.7The [facility] HospitalComment on above:Order Comment: No: Do not add to previous drawPerformed By: #### 44422, 12103, 38351, 93471 #### [facility] [address] [place] [address], USAPHOSPHORUS BLOODon 87-43-7864Rzmgagthn [Mass/Vol]3.1 mg/dL Normal2.5-5.0The [facility] HospitalComment on above:Order Comment: No: Do not add to previous drawPerformed By: #### 44744, 23036, 25067, 19220 #### [facility] [address] [place] [address], USARBC'S 2 UNITSon 65-01-5898QUNMSPUMJZ INTERP 1COhioHealthComment on above:Performed By: #### 95643 #### [facility] [address] [place] [address], USACROSSMATCH INTERP 2COhioHealthComment on above:Performed By: #### 76467 #### [facility] [address] [place] [address], USAPRODUCT CODE [id number] Jewish HospitalComment on above:Performed By: #### 05478 #### [facility] [address] [place] [address], USAPRODUCT CODE [id number] Jewish HospitalComment on above:Performed By: #### 81023 #### [facility] [address] [place] [address], USAPRODUCT STATUS 1PTThe Jewish HospitalComment on above:Result Comment: Result changed by IF on 12/19/2018 09:14. The previous value was XM. Result changed by IF on 12/20/2018 00:30. The previous value was IS.Performed By: #### [id number] #### [facility] [address] [place] [address], USAPRODUCT STATUS 2RENoKettering Health Washington TownshipComment on above:Result Comment: Result changed by IF on 12/22/2018 07:27. The previous value was XM.Performed By: #### [id number] #### [facility] [address] [place] [address], USAUNIT ABO 1AThe [facility] Comment on above:Performed By: #### [id number] #### [facility] [address] [place] [address], USAUNIT ABO 2AThe [facility] Comment on above:Performed By: #### [id number] #### [facility] [address] [place] [address], USAUNIT ID [id number]. Rita's HospitalComment on above:Performed By: #### [id number] #### [facility] [address] [place] [address], USAUNIT ID [id number]. Rita's HospitalComment on above:Performed By: #### [id number] #### [facility] [address] [place] [address], USAUNIT RH 1NegaTuscarawas HospitalComment on above:Performed By: #### [id number] #### [facility] [address] [place] [address], USAUNIT RH 2NegaTuscarawas HospitalComment on above:Performed By: #### [id number] #### [facility] [address] [place] [address], USATYPE AND SCREENon [id number] INTERPRETATIONANoKettering Health Washington TownshipComment on above:Performed By: #### [id number] #### [facility] [address] [place] [address], USARH INTERPRETATIONPositiveThe Jewish HospitalComment on above:Performed By: #### [id number] #### [facility] [address] [place] [address], USABASIC METABOLIC PANELon 57-98-4666Uytoefk [Mass/Vol]9.5 mg/dLNormal8.6-10.3The [facility]iffin HospitalComment on above:Order Comment: No: Do not add to previous drawPerformed By: #### [id number] #### [facility] [address] [place] [address], USAChloride [Moles/Vol]95 mmol/OIch67-460Mow [facility]iff[facility] HospitalComment on above:Order Comment: No: Do not add to previous drawPerformed By: #### [id number] #### [facility] [address] [place] [address], USACO2 [Moles/Vol]29 mmol/KBjvxum22-92Twh [facility] HospitalComment on above:Order Comment: No: Do not add to previous draw Performed By: #### [id number] #### [facility] [address] [place] [address], USACreatinine [Mass/Vol]2.01 mg/dLHigh0.60-1.20The [facility]iff[facility] HospitalComment on above:Order Comment: No: Do not add to previous drawPerformed By: #### [id number] #### [facility] [address] [place] [address], USAGFR/1.73 sq M predicted among blacks MDRD (S/P/Bld) [Vol rate/Area]29 ml/min/1.73sq mAbnormal>60The [facility] Comment on above:Order Comment: No: Do not add to previous drawResult Comment: Calculation may not be valid for patients over 70 yearsPerformed By: #### [id number] #### [facility] [address] [place] [address], USAGFR/1.73 sq M predicted among non-blacks MDRD (S/P/Bld) [Vol rate/Area]24 ml/min/1.73sq mAbnormal>60The [facility] HospitalComment on above:Order Comment: No: Do not add to previous drawResult Comment: Calculation may not be valid for patients over 70 yearsPerformed By: #### [id number] #### [facility] [address] [place] [address], USAGlucose [Mass/Vol]125 mg/mKKdiy79-488Zem [facility] HospitalComment on above:Order Comment: No: Do not add to previous drawPerformed By: #### [id number] #### [facility] [address] [place] [address], USAPotassium [Moles/Vol]2.8 mmol/LLow3.5-5.1The [facility]iffin HospitalComment on above:Order Comment: No: Do not add to previous drawPerformed By: #### [id number] #### [facility] [address] [place] [address], USASodium [Moles/Vol]135 mmol/CAjv671-185Yww [facility] HospitalComment on above:Order Comment: No: Do not add to previous drawPerformed By: #### [id number] #### [facility] [address] [place] [address], USAUrea nitrogen [Mass/Vol]62 mg/dLHigh7-25The [facility]iffin HospitalComment on above:Order Comment: No: Do not add to previous drawPerformed By: #### [id number] #### [facility] [address] [facility] [place] [address], USACBC COMPLETE BLOOD COUNTon 01-33-2063Alynsaqvknj distribution width (RBC) [Ratio]15.8 %High11.5-15.0The [facility] Tiffin HospitalComment on above:Order Comment: No: Do not add to previous draw Performed By: #### [id number] #### [facility] [address] [place] [address], USAHematocrit (Bld) [Volume fraction]24.7 %Low36.0-45.0The [facility]iffin HospitalComment on above:Order Comment: No: Do not add to previous drawPerformed By: #### [id number] #### [facility] [address] [place] [address], [facility] MEDICAL CENTERHemoglobin (Bld) [Mass/Vol]7.5 g/dLLow12.0-15.0The [facility] HospitalComment on above:Order Comment: No: Do not add to previous drawPerformed By: #### [id number] #### [facility] [address] [place] [address], [facility] OKEMAHH (RBC) [Entitic mass]26.8 pgLow27.0-33.0The [facility] HospitalComment on above:Order Comment: No: Do not add to previous drawPerformed By: #### [id number] #### [facility] [address] [place] [address], [facility]DI[facility] MED[facility] CENTERMCHC (RBC) [Mass/Vol]30.4 g/dLLow32.0-35.0The [facility] HospitalComment on above:Order Comment: No: Do not add to previous drawPerformed By: #### [id number] #### [facility] [address] [place] [address], [facility] CENTERMCV (RBC) [Entitic vol]88.2 yIEgzkea82.0-98.0The [facility] HospitalComment on above:Order Comment: No: Do not add to previous drawPerformed By: #### [id number] #### [facility] [address] [address], USANucleated RBC/100 WBC (Bld) [Ratio]0 %Normal0-0The [facility]iff[facility] HospitalComment on above:Order Comment: No: Do not add to previous drawPerformed By: #### [id number] #### [facility] [address] [place] [address], USAPLAT NSR339 10*3/gPObnpcd446-129Dfh [facility] HospitalComment on above:Order Comment: No: Do not add to previous draw Performed By: #### [id number] #### [address] [place] [address], USARBC (Bld) [#/Vol]2.80 10*6/uLLow3.80-5.00The [facility]iff[facility] HospitalComment on above:Order Comment: No: Do not add to previous drawPerformed By: #### [id number] #### [facility] [address] [place] [address], USAWBC (Bld) [#/Vol]8.14 10*3/uLNormal4.00-10.60The [facility] HospitalComment on above:Order Comment: No: Do not add to previous drawPerformed By: #### [id number] #### [facility] [address] [facility] [place] [address], USACHEST AND LATERALon 55-96-0621SPCJG AND LATERALMercy Health Tiffin Hospital Department of Radiology [address] [place] [address] [id number] Patient Name: JENIFER HERNANDEZ : 1940 Sex: F Age: Race: NA Pt. Location: OUTP Patient Status: I Ordered Date: 12/17/2018 11:15:00 AM Completed Date: 12/17/2018 01:00 PM Requesting Provider: BEVERLY BROCK Attending Provider: HERBER FLORES V Report Copy To: Signs & Symptoms: Shortness of Breath History: See Comments Comments: R/O Effusion Exam: CHEST AND LATERAL CHEST AND LATERAL 12/17/2018 1:00 PM EDT [...] lungs Electronically signed by:Dori Olson. Transcribed by: [email or web address], User Resident: Electronically Signed by: DORI OLSON @ 12/17/2018 01:43 PMNormalThe [facility] Tiffin HospitalComment on above:Order Comment: R/O EffusionHistory and Physicalon 24-23-5979Iklrnxz and PhysicalMR#: [id number] [facility] Pt. Name: Jenifer Hernandez Admitted: 12/17/2018 Date of : 1940 Attending Physician: Beverly Brock MD Room #: 3CD [id number] Discharge Date: HISTORY AND PHYSICAL CHIEF COMPLAINT: Shortness of breath. HISTORY OF PRESENT ILLNESS: This is an 78-year-old female with past medical history significant for diastolic congestive heart failure, history of coronary artery disease status post remote CABG, history of gastric/duodenal ulcer disease, and history of chronic atrial fibrillation, on Xarelto. The patient was evaluated with her pnp recently for increased shortness of breath on simple daily activities like walking few steps from the garage to her home. She was found to be in exacerbation of her diastolic heart failure and her diuretic dosage was increased. [facility] was [facility] to [facility] for an elective right heart catheterization [...] for that she was seen by a semiconductor equipment technician. She thinks that she had an EGD [...] Brock MD Date Trans: 12/17/2018 12:28 P/mmo DN_JN:[id number] [facility] Vital Signs Date TimeVital SignValuePerforming DaomjryzdJhldejcp97-82-1338 13:56-0400Body cprizl530.56 cmJessica Bennett DO Work Phone: [phone]09-25-2025 13:56-0400 Body mass index (BMI) [Ratio]26.6 kg/z9Kwfoght Bennett DO Work Phone: [phone] [place], [place] 2551509-25-2025 13:56-0400 Body sbaudx19.3 kgJessica Bennett DO Work Phone: [phone]09-25-2025 13:56-0400 Diastolic blood fmkkylev32 mm[Hg]Joi Bennett DO Work Phone: [phone] [place], [place] 255[address]09-25-2025 13:56-0400 Heart rate82 /minJessica Bennett DO Work Phone: [phone] [place], [place] 255[address]09-25-2025 13:56-0400 Respiratory rate16 /minJessica Bennett DO Work Phone: [phone]09-25-2025 13:56-0400 SaO2% (BldA) [Mass fraction]93 %Joi Bennett DO Work Phone: [facility]09-25-2025 13:56-0400 Systolic blood zsgrpnxi740 mm[Hg]Joi Bennett DO Work Phone: [facility]06-05-2025 10:31-0400 Body mass index (BMI) [Ratio]27.46 kg/m2Allyssa Nestor BANK TELLER Work Phone: [facility] HospitalYphnjljdmo28-67-7373 10:31-0400Body temperature 98.29 [degF]Allyssa Nestor BANK TELLER Work Phone: [facility] HospitalKijadnfoxg00-96-0923 10:31-0400Body lbkzyf37.58 kgAllyssa Bokirtalexandria BANK TELLER Work Phone: [facility] HospitalPouphihqdx40-08-0429 10:31-0400Diastolic blood qtinthyz71 mm[Hg]Allyssa Bokirtalexandria BANK TELLER Work Phone: [facility] HospitalUduvnedusj48-30-8073 10:31-0400Heart rate79 /min Allyssa Nestor BANK TELLER Work Phone: [facility] HospitalPvwzlfufzd69-45-3267 10:31-0400Respiratory rate18 /minAllyssa Bokirtalexandria BANK TELLER Work Phone: [facility] HospitalSsgfiodugm20-74-3284 10:31-4696XiD1% (BldA) [Mass fraction]96 %Allyssa Bokirtalexandria BANK TELLER Work Phone: [facility] HospitalYniqzwyooz31-08-0460 10:31-0400Systolic blood yviajlgh051 mm[Hg]Allyssa Nestor BANK TELLER Work Phone: [facility] HospitalDymsxuibxr66-87-3239 09:08-0400Body mass index (BMI) [Ratio]27.29 kg/m2Allyssa Bokirtalexandria BANK TELLER Work Phone: [facility] HospitalRzfmdythnr19-44-1287 09:08-0400Body temperature 98.49 [degF]Allyssa Baez BANK TELLER Work Phone: [facility] HospitalFuahehtqgn91-28-6596 09:08-0400Body ypvits49.12 kgAllyssa Baez BANK TELLER Work Phone: [facility] HospitalLerdvajoki44-98-9883 09:08-0400Diastolic blood exhohfka21 mm[Hg]Allyssa Baez BANK TELLER Work Phone: [facility] HospitalJzclckltfm54-16-9906 09:08-0400Heart rate55 /min Allyssa Baez BANK TELLER Work Phone: [facility] HospitalFelhzhtjsd96-44-4765 09:08-0400Respiratory rate20 /minAllyssa Baez BANK TELLER Work Phone: [facility] HospitalYegtlexagv43-15-8055 09:08-3698WnO4% (BldA) [Mass fraction]99 %Allyssa Baez BANK TELLER Work Phone: [facility] HospitalWjjvpninxw72-38-7758 09:08-0400Systolic blood vwhgaqim709 mm[Hg]Allyssa Baez BANK TELLER Work Phone: [facility] HospitalWldprvkvww63-52-4205 14:06-0500Body nkhfjy635.6 cmBrfrancisco jdana JackHemphill BANK TELLER Work Phone: [facility] HospitalQiurpoaopz22-54-0567 14:06-0500Body mass index (BMI) [Ratio]27.84 kg/u7Nzzqiaip Hemphill BANK TELLER Work Phone: [facility] HospitalIammxohxck89-18-8992 14:06-0500Body temperature 99.5 [degF]Shell Hemphill BANK TELLER Work Phone: [place] [address]Xblqiplvwk95-18-5794 14:06-0500Body iidleq81.57 kgBrfrancisco jdana Hemphill BANK TELLER Work Phone: [place] [address]Ohtcnjznlc15-16-7893 14:06-0500Diastolic blood tavabhpp21 mm[Hg]Shell Hemphill BANK TELLER Work Phone: [facility] HospitalEtrejplcmt64-34-4941 14:06-0500Heart rate88 /min Shell Hemphill BANK TELLER Work Phone: [facility] HospitalQqjawepwqr70-80-4747 14:06-0500Respiratory rate16 /minBrittdana Hemphill BANK TELLER Work Phone: [facility] HospitalYzdboumnly75-94-7762 14:06-4002ZzG5% (BldA) [Mass fraction]94 %Shell Hemphill BANK TELLER Work Phone: [facility] HospitalHebpfxcvuv91-98-9554 14:06-0500Systolic blood wkpuhioo158 mm[Hg]Shell Hemphill BANK TELLER Work Phone: [facility] HospitalQslstcycya32-99-9041 09:03-0400Body rzemkx015.6 cmShell Hemphill BANK TELLER Work Phone: [facility] HospitalWhcghuzgqh89-33-7024 09:03-0400Body mass index (BMI) [Ratio]26.43 kg/e2Kuldwtgm Hemphill BANK TELLER Work Phone: [facility] HospitalIygxgsykbb38-79-7949 09:03-0400Body temperature 99.5 [degF]Shell Hemphill BANK TELLER Work Phone: [facility] HospitalXnlgpnqdup40-76-0604 09:03-0400Body agbcsw23.85 kgBrfrancisco jany Hemphill BANK TELLER Work Phone: [facility] HospitalQcwlmuucyb74-53-0702 09:03-0400Diastolic blood mm[Hg]Shell Hemphill BANK TELLER Work Phone: [facility] HospitalCxltbitkoy02-51-7776 09:03-0400Heart rate92 /min Shell Hemphill BANK TELLER Work Phone: noMercy Hospital JoplinComment on above:96% Y888-52-1035 09:03-0400Systolic blood pcqayfzv215 mm[Hg]Shell Hemphill BANK TELLER Work Phone: [facility] Encounters Encounter DateEncounter TypeCare ProviderFacilityStart: 11-23-2024 End: 92-04-9747noqxbwvzriKIJMSS [facility] Start: 11-12-2024 End: 82-86-1805bqvczlxiguYdrtzkj Bennett DO Work Phone: [facility] Work Phone: Start: 11-12-2024 End: 97-66-3826Hndclgz encounter procedureJessica Bennett DO-[facility] Work Phone: Start: 09-07-2024 End: 40-54-8448yistdtfpdfJYURTZ [facility] Start: 08-19-2024 End: 63-76-8378Sfaxfowpb Result EncounterGeneric External Data ProviderNOMS External Department UnsolicitedStart: 08-19-2024 End: 21-24-0490Aepfsjxve Result EncounterGeneric External Data ProviderNOMS External Department UnsolicitedStart: 07-30-2024 End: 70-65-5296QdoepqResd Naderer MD Work Phone: [facility] CWM FMComment on above:Chronic diastolic heart failure (HCC)Start: 07-23-2024 End: 09-76-0678Ehuoof flowsheetAllyssa Baez BANK TELLER Work Phone: [facility] FMStart: 07-23-2024 End: 62-70-7224Zmcxas flowsheetLisa Bohholz BANK TELLER Work Phone: [facility] FMStart: 07-23-2024 End: 26-51-3295Jxqclyw encounter procedureLisa Nestor BANK TELLER Work Phone: [facility] FMComment on above:Encounter for subsequent annual wellness visit (AWV) in Medicare patient (Primary Dx); Chronic atrial fibrillation, unspecified (CMS/HCC); Chronic diastolic heart failure (CMS/HCC); Coronary artery disease 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 pectoris (CMS/HCC); Primary hypertension (CMS/HCC); Chronic kidney disease, stage 3b (HCC) (CMS/HCC); Type 2 diabetes mellitus with diabetic chronic kidney disease (CMS/HCC); Type 2 diabetes mellitus with diabetic cataract (CMS/HCC); Numbness of fingers of both handsStart: 07-23-2024 End: 20-60-9020lmbvsjadfpFXHL AICHHOLZNot AvailableStart: 06-22-2024 End: 71-22-3267UuaudfBvls Naderer MD Work Phone: [facility] CWM FMComment on above:Hypercholesteremia (CMS/HCC)Start: 05-26-2024 End: 05-78-9429Ozizlg flowsheetAllyssa Baez BANK TELLER Work Phone: [facility] FMStart: 05-26-2024 End: 51-06-6375Gtpark flowsheetAllyssa Baez BANK TELLER Work Phone: [facility] FMStart: 05-26-2024 End: 76-70-4170brvkygqnerENPN AICHHOLZNot AvailableStart: 05-26-2024 End: 73-10-1682Itpvbq outpatient visit 25 minutesAllyssa Baez NP Work Phone: [facility] FMComment on above:Primary hypertension (CMS/HCC) (Primary Dx); Chronic atrial fibrillation, unspecified (CMS/HCC); Type 2 diabetes mellitus without complications; Chronic kidney disease, stage 3b (HCC) (CMS/HCC); Coronary artery disease 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 pectoris (CMS/HCC); Nonrheumatic tricuspid valve regurgitation; Pulmonary HTN (CMS/HCC); Gastroesophageal reflux disease without esophagitis; Mixed hyperlipidemia (CMS/HCC); Chronic diastolic heart failure (CMS/HCC)Start: 05-13-2024 End: 64-13-7412Ssixakwgz Result EncounterLisa Baez BANK TELLER Work Phone: [facility] External Department UnsolicitedStart: 05-13-2024 End: 44-12-9520Vzzsraubq Result EncounterLisa Nestor BANK TELLER Work Phone: [facility] External Department UnsolicitedStart: 05-13-2024 End: 47-51-2717Zjbfgtdtg encounterAllyssa Mackayalexandria BANK TELLER Work Phone: NOEU CWM FMStart: 03-01-2024 End: 00-69-2251HvvtqgHrypmpad Hemphill BANK TELLER Work Phone: NOFC CWM FMComment on above:Hypercholesteremia (CMS/HCC)Start: 02-20-2024 End: 24-02-3279RhjczdTnwnwqfk Hemphill BANK TELLER Work Phone: NOQX CWM FMComment on above:Chronic diastolic heart failure (CMS/HCC)Start: 02-04-2024 End: 74-95-5071Iibqkdbun Result EncounterGeneric External Data ProviderNOMS External Department UnsolicitedStart: 02-04-2024 End: 90-34-6467Atfvxfddv Result EncounterGeneric External Data ProviderNOMS External Department UnsolicitedStart: 01-13-2024 End: 50-13-9395ojiesfhnfmVWSWSH [facility] Start: 01-09-2024 End: 56-39-3267Qsjgxw outpatient visit 15 Azra Hemphill BANK TELLER Work Phone: [facility] CWM FMComment on above:Hypertension, unspecified type (CMS/HCC) (Primary Dx); Other hyperlipidemia (CMS/HCC); Stage 3b chronic kidney disease (HCC) (CMS/HCC)Start: 01-09-2024 End: 26-60-6966Edxyke flowsheetShell Neritrick BANK TELLER Work Phone: NOJN CWM FMStart: 01-09-2024 End: 09-91-3767Mypvlc flowsheetAideeany Hemphill BANK TELLER Work Phone: [facility] CWM FMStart: 01-09-2024 End: 48-18-5404trtlktcpxgYIFVXUON FITZPATRICKNot AvailableStart: 12-26-2023 End: 55-87-6756Fpkrhyjfe Result EncounterGeneric External Data ProviderNOMS External Department UnsolicitedStart: 12-26-2023 End: 45-36-1878Nmdtkbhtk Result EncounterGeneric External Data ProviderNOMS External Department UnsolicitedStart: 12-18-2023 End: 38-33-8854hcqxmsmmiiBNLISSuburban Community Hospital & Brentwood Hospitaltart: 12-18-2023 End: 88-61-4437Exdduiqwl Result EncounterGeneric External Data ProviderNOMS External Department UnsolicitedStart: 12-18-2023 End: 15-90-5948Umprwgdec Result EncounterGeneric External Data ProviderNOMS External Department UnsolicitedStart: 11-25-2023 End: 85-41-4840NqbwoiEhgwanpi Hemphill BANK TELLER Work Phone: [facility] CWM FMComment on above:Hypercholesteremia (CMS/HCC) (Primary Dx)Start: 10-28-2023 End: 98-14-8161Watzdxhqi Result EncounterGeneric External Data ProviderNOMS External Department UnsolicitedStart: 10-28-2023 End: 18-91-7940Cfmdyqxfh Result EncounterGeneric External Data ProviderNOMS External Department UnsolicitedStart: 10-14-2023 End: 72-71-5750Gktygb flowsheetBrittany Hemphill BANK TELLER Work Phone: [facility] CWM FMStart: 10-14-2023 End: 38-40-8133Stuwey flowsheetBrittany Hemphill BANK TELLER Work Phone: [facility] CWM FMStart: 10-14-2023 End: 15-65-6085Qfmdgs outpatient visit 25 minutesBrittany Hemphill BANK TELLER Work Phone: [facility] CWM FMComment on above:Hypercholesteremia (CMS/HCC) (Primary Dx); Hypertensive heart disease with heart failure (CMS/HCC); Hypertension, unspecified type (CMS/HCC); Cerumen debris on tympanic membrane of both ears; Stage 3b chronic kidney disease (HCC) (CMS/HCC); Chronic fatigueStart: 10-14-2023 End: 37-61-3472bmhuitzuatJFCAMZLF FITZPATRICKNot AvailableStart: 01-31-2022 End: 89-32-1659ohpusggrdhZX HERBER MOUKARBELFacility:G6Pcbjr: 01-18-2022 End: 51-37-2965rehgweawyaXQGQBPRD ZAHLERFacility:S5Bptlg: 12-21-2021 End: 11-39-5748fgfxwarsocHVWBSDMV ZAHLERFacility:G1Obvhr: 95-80-2174yyhkavnuabUN CHARLES HOUSEFacility:W1Sridc: 10-18-2021 End: 39-51-0293qltasqdwxyCY CHARLES HOUSEFacility:R8Yoarn: 68-60-5659roytramchy DR SALAMANCA HOUSEFacility:D7Jbsji: 08-18-2021 End: 80-11-2117jwrygkagzkGGWICBR K BOESFacility:P1Ajdca: 03-28-2021 End: 06-30-7101axshbsyuebYL DOCTOR MISCFacility:P2Yhpvw: 03-07-2021 End: 07-94-1429ywbwecxahbHYLYCDL K BOESFacility:F1Nksnx: 01-05-2019 End: 94-16-8385Dvdfaysobe and management of inpatientMUHAMMAD ALIFacility:[facility] Start: 12-17-2018 End: 10-34-8712Rjfiinuotn and management of inpatientCHARLES HOUSEFacility:[facility] Procedures DateProcedureProcedure DetailPerforming ClinicianStart: 83-64-1923CF ECHO DOPPLER COMPLETEGeneric External Data ProviderStart: 40-55-8364Tjrgjnaiqs glycosylated v2pLcwi Nestor BANK TELLER Work Phone: Start: 88-57-0558GEU CBC WITH AUTO DIFFLisa Nestor BANK TELLER Work Phone: Start: 28-68-4181CKS BASIC METABOLIC PANELGeneric External Data ProviderStart: 39-85-2077ZFT BASIC METABOLIC PANELGeneric External Data ProviderStart: 35-38-3278NMS BASIC METABOLIC PANELGeneric External Data ProviderStart: 21-10-3049PHW BASIC METABOLIC PANELGeneric External Data Provider Start: 61-52-9654Kffpify of coronary artery bypass graftingHistory of coronary artery bypass graftShell Hemphill NP Work Phone: Start: 85-54-2184Oljiodlprrk of Cardiac Rhythm, Single MOSHRIK ABD ALAMIRStart: 76-05-3420YWTSMMVFFMFIXCE OF RIGHT AND LEFT HEART, TRANSESOPHAGEALMOSHRIK ABD ALAMIRStart: 36-02-3683TOGHKKY OF CARDIAC SAMPL \T\ PRESSURE, R HEART, PERC APPROACHMOSHRIK ABD ALAMIRStart: 22-21-2627SBNWHENDIS OF UPPER INTESTINAL TRACT, ENDOALI T NAWRASStart: 37-01-5150YHJFVCGOU NONAUT RED BLOOD CELLS IN PERIPH VEIN, PERCASIF MAHMOODStart: 75-57-6168Fiwxapuh screen EDU MYRTLE BEACHComment on above:Performed By: #### [id number] #### [facility] [address] [place] [address], USAStart: 06-71-0615QSOBKBJ OF CARDIAC SAMPL \T\ PRESSURE, R HEART, PERC APPROACHGEORGE V MOUKARBELStart: 37-58-3202YLVRFWAUSKQ OF ARTERIAL FLOW, PULMONARY, PERC APPROACHGEORGE V MOUKARBEL Plan of Treatment DateCare ActivityDetailAuthorStart: 07-26-2025 End: 95-97-0770Zyhyfvw encounter /08/2026 10:00 AM EDT Office Visit RASHEL QUACH [address] [place] [address] Allyssa Baez NP [address] [place] [address] RASHEL QUACH FMStart: 29-64-1068Fbydm screening for protein Diabetes: Urine Protein ScreeningSTEWARD HEALTH CARE SYSTEM HealthcareStart: 10-27-2024 End: 83-30-7898Nravzsg encounter tmiyotlez79/09/2025 9:40 AM EDT Office Visit RASHEL NORRIS [address] [place] [address] Allyssa Baez NP [address] [place] [address] [facility] FMStart: 60-67-5304Sdeqosmiz vaccinationInfluenza Vaccine (Season Ended)[facility] HealthcareStart: 62-99-8906Szhoilcgzh A1c measurement Diabetes: Hemoglobin U1CBBIR HealthcareStart: 07-23-2024 End: 19-68-5957Kbmoppm encounter procedureNOMS [facility] FMComment on above:Encounter for subsequent annual wellness visit (AWV) in Medicare patient (Primary Dx); Chronic atrial fibrillation, unspecified ([facility]/HCC); Chronic diastolic heart failure ([facility]/HCC); Coronary artery disease 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 pectoris ([facility]/HCC); Primary hypertension ([facility]/HCC); Chronic kidney disease, stage 3b (HCC) ([facility]/HCC); Type 2 diabetes mellitus with diabetic chronic kidney disease ([facility]/HCC); Type 2 diabetes mellitus with diabetic cataract ([facility]/HCC)Start: 05-26-2024 End: 66-70-7073Fsonshr encounter ufhijxaaf42/08/2025 9:00 AM EDT Office Visit [facility] [address] [place] [address] Allyssa Baez NP [address] [place] [id number] [facility] FMStart: 04-13-2024 End: [id number] encounter haahahbag86/24/2025 2:00 PM EST Office Visit [facility] [address] [place] [address] Shell Hemphill NP [address] [place] [address] [facility] FMStart: 01-14-2024 End: 26-33-9501Bwopusd encounter [email or web address]/26/2024 10:30 AM EST Office Visit [facility] [address] [place] [address] Shell Hemphill NP [address] [place] [address] [facility] CW FMStart: 01-09-2024 End: 30-04-4282Nwcvtgl encounter procedureNOMS CW FMComment on above:Arrived Start: 46-87-5696Hejkozffk vaccinationInfluenza Vaccine (#1)[facility] Healthcare Start: 10-14-2023 End: 83-18-7274Dbxqvqi encounter zuxtgacex65/26/2024 9:00 AM EDT Office Visit [facility] [address] [place] [id number] Shell Hemphill NP [address] [place] [id number] Hypercholesteremia (CMS/HCC) (Primary Dx); Hypertensive heart disease with heart failure(CMS/HCC); Chronic fatigueNOMS CW FMComment on above:Hypercholesteremia (CMS/HCC) (Primary Dx); Hypertensive heart disease with heart failure (CMS/HCC); Chronic fatigueStart: 34-21-2945Sayxlwxcaefo Vaccine: 65+ Years (1 of 2 - PCV) Pneumococcal Vaccine: 65+ Years (1 of 2 - PCV)[facility] HealthcareStart: 1950 Glaucoma screeningDiabetes: Retinopathy ScreeningNOOH HealthcareStart: 04-84-3357Ukfaouyidzhb Vaccine: 65+ Years (1 of 2 - PCV)Pneumococcal Vaccine: 65+ Years (1 of 2 - PCV)[facility] HealthcareStart: 05-01-2422Quofraeuxk A1c measurementDiabetes: Hemoglobin N0TPYZH HealthcareComprehensive metabolic 2000 panel - Serum or PlasmaTallahas[facility] Immunizations Immunization DateImmunizationNotesCare AfuwcwsoJdehlztx41-65-5226Wbwwxq Purple Cap SARS-CoV-2 VaccinationBrittany Hemphill BANK TELLER Work Phone: [facility] HospitalRgdwgikssv43-06-4445Ypedpq Purple Cap SARS-CoV-2 VaccinationBrittany Hemphill BANK TELLER Work Phone: [facility] HospitalRrmgpeepbs23-63-3334Vnqbpp Purple Cap SARS-CoV-2 VaccinationBrittany Hemphill BANK TELLER Work Phone: [phone] [place], [place] [address]Tttjuredyo79-10-4228mtunzsgiy, high dose seasonal, preservative-freeBrittany Hemphill BANK TELLER Work Phone: [facility] HospitalSsjzwbttvm17-56-9095vflrtpror virus vaccine, unspecified formulationBrittany Hemphill BANK TELLER Work Phone: [facility] HospitalPqitsaqynm11-35-1446hghfnd vaccine recombinant Shell Hemphill BANK TELLER Work Phone: [facility] HospitalZjjjdlkpho50-90-7109hterkf vaccine recombinant Shell Hemphill BANK TELLER Work Phone: [phone] [place], [place] [address]Wfqotzqsct05-11-9359Kmrripiu trivalent influenza vaccine, adjuvanted, preservative freeBrittany Hemphill BANK TELLER Work Phone: [facility] HospitalSeszhvyhon23-38-9113aqkmmluqx, high dose seasonal, preservative-freeBrittany Hemphill BANK TELLER Work Phone: [facility] Payers DatePayer CategoryPayerPolicy [id number] Health Insurance [id number] 2006Medicare [id number] 2005MedicaidCIGNA MEDICARE ADVANTAGE [id number] [id number] 85-25-2106Ecox-[id number] 2.16840.1.361888.3.57[id number] 2.16840.1.211687.3.57[id number] 2.16840.1.202153.3.57[id number] 2.16840.1.811970.3.57[id number] 2.16840.1.209083.3.57[id number] 2.16.840.1.263055.3.57[id number] 2.16840.1.780040.3.57[id number] 2.16840.1.758845.3.57[id number] 2.16840.1.440060.3.57[id number] 2.16840.1.764813.3.57[id number] 2.16840.1.683169.3.57[id number] 2.16840.1.080882.3.57[id number] 2..840.1.712800.3.57[id number] 2.840.1.900975.3.57[id number] 2.840.1.692551.3.579.2.1259 Social History DateTypeDetailFacilityStart: 05-21-2023 End: 34-35-2947Yyzguwb smoking status NHISNever smoked tobaccoNOOH Healthcare Start: 97-18-4941Lkdhohl use and exposureSmokeless tobacco non-userNOOH HealthcareStart: 10-14-2023 End: 60-18-9078Jyrlbnqqn beverage intakeLifetime non-drinker (finding)[facility] HealthcareStart: 10-14-2023 End: 51-53-9692Ddgbiiw of Social functionNOOH HealthcareStart: 10-14-2023 End: 89-65-2182Acsdctl use panelNOOH HealthcareStart: 76-42-7728Ycl [facility] HealthcareSexFemale (finding)[facility] Healthcaretart: 90-41-8669Idi Assigned At [facility] HospitalNEGATED: Highlighted rowStart: NINFHistory of tobacco usePassive smoker [facility] Functional Status EzmmAqbisyoyzpCmbmhkWzgcwtjc25-41-7243Oujjzrg Health Questionnaire 2 item (PHQ- 2) [Reported][facility] Clinical Notes 12-21-2021 to 11-23-2024 Note Date & WugdSigvEyumslnp71-05-0424 NoteUT [address] [facility] Donna Hernandez is a 84 y.o. year old female patient being seen for 3 mo follow up with Echo and labs. Patient states she is feeling ok. Patient complains of chest pain with exertion, leg swelling, dizziness/lightheaded, fatigue, hand/finger numbness/tingling. Patient denies palpitations/racing heart. Patient Active Problem List Diagnosis Chronic atrial fibrillation (CMS/HCC) Chronic diastolic congestive heart failure (CMS/HCC) Coronary artery disease 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 pectoris History of coronary [...] Substance Use Topics Alcohol use: Not Currently Drug use: Never HPI Jenifer is seen in follow up. She is 84-year-old woman with history of coronary disease status [...] respond to it. She was admitted to [facility] with decompensated HF in 05/2018. Update [...] Global left ventricular systolic function is normal (Visua (more content not included)...[facility]07-21-[address] [facility] Subjective Jenifer Hernandez is a [...] heart failure (CMS/HCC) Coronary artery disease 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 pectoris History of coronary [...] respond to it. She was admitted to [facility] with decompensated HF in 05/2018. Update [...] nor (more content not included)... [facility]06-05-2025 History of Present illness Narrative* Allyssa Baez NP - 07/23/2024 10:59 AM EDTAssociated Problem(s): Numbness of fingers of both hands Trial vit b 12 supplement 1,0000 mcg daily * Allyssa Baez NP - 07/23/2024 10:30 AM EDT Images from the original note were not [...] Hospitalizations in the last year: no Specialist: [facility] Saúl HCPOA/Living Will: no Concerns: NT in [...] Items Addressed This Visit HTN (hypertension) (CMS/HCC) Please check blood pressure daily and record DASH diet Limit caffeine Take medication as directed Contact office if chest pain, pressure, dizziness, shortness of breath, swelling legs Recommend slow position changes Current meds: imdur, bblocker, aldactone Chronic diastolic heart failure (CMS/HCC) Managed by [facility] Cardiology Current meds: imdur, b dayna, diuretics Chronic atrial fibrillation, unspecified (CMS/HCC) Current meds: xarelto, b dayna [facility] Cardiology Coronary artery disease 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 pectoris (CMS/HCC) Current meds: statin, imdur, b dayna [facility] Cardiology Chronic kidney disease, stage 3b (HCC) (CMS/[facility]) Continued monitoring Goals: good BP and DM control Encounter for subsequent annual wellness visit (AWV) in Medicare patient - Primary Reviewed Ht/Wt/BMI Recommend eye exam yearly Recommend dental exams twice a year Balance work/leisure activities Exercises is recommended most days of the week (appropriate as chronic conditions allow) Follow up yearly and prn Type 2 diabetes mellitus with diabetic chronic kidney disease ([facility]/HCC) Type 2 diabetes mellitus with diabetic cataract ([facility]) Numbness of fingers of both hands Trial vit b 12 supplement 1,0000 mcg daily * Allyssa Baez NP - 07/23/2024 6:38 AM EDTAssociated Problem(s): Encounter for subsequent annual wellness visit (AWV) in Medicare patient Reviewed Ht/Wt/BMI Recommend eye exam yearly Recommend dental exams twice a year Balance work/leisure activities Exercises is recommended most days of the week (appropriate as chronic conditions allow) Follow up yearly and prn * Allyssa Baez NP - 07/23/2024 6:37 AM EDTAssociated Problem(s): Chronic kidney disease, stage 3b (HCC) ([facility]) Continued monitoring Goals: good BP and DM control * Allyssa Baez NP - 07/23/2024 6:37 AM EDTAssociated Problem(s): HTN (hypertension) ([facility]) Please check blood pressure daily and record DASH diet Limit caffeine Take medication as directed Contact office if chest pain, pressure, dizziness, shortness of breath, swelling legs Recommend slow position changes Current meds: imdur, bblocker, aldactone * Allyssa Baez NP - 07/23/2024 6:36 AM EDTAssociated Problem(s): Coronary artery disease 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 pectoris ([facility]) Current meds: statin, imdur, b dayna [facility] Cardiology * Allyssa Baez NP - 07/23/2024 6:36 AM EDTAssociated Problem(s): Chronic diastolic heart failure (CMS/HCC) Managed by [facility] Cardiology Current meds: imdur, b dayna, diuretics * Allyssa Baez NP - 07/23/2024 6:36 AM EDTAssociated Problem(s): Chronic atrial fibrillation, unspecified (CMS/HCC) Current meds: xarelto, b dayna [facility] Cardiology documented in this encounterSamaritan HospitalAqozsyypar68-41-0319 Instructions* Patient Instructions* Allyssa Baez NP - 07/23/2024 10:30 AM EDT Recommend diabetic eye exam: call to schedule with your eye doctor Pneumonia vaccine: you are due for one of these, you can go to your local pharmacy and get that For Numbness in hands: try Vit B12 (cyanocobalamine) 1,0000 mcg once a day (look in vit section at the pharmacy) documented in this encounterSamaritan HospitalOnypmmbwoe00-01-0864 History of Present illness Narrative* CECILY JACKSON - 05/26/2024 9:00 AM EDT Pt has been having numbness in all finger types, started in the left hand and has moved to right hand. 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 Pt seen pnp in nov. Not due til her 6 month check up * Allyssa Nestor, BANK TELLER - 05/26/2024 9:00 AM EDT Images from the original note were not [...] problems. Hypertensive end-organ damage includes kidney disease, CAD/NC and heart failure. Identifiable causes of hypertension include chronicrenal disease. SUBJECTIVE: MEDICATIONS: Current Outpatient Medications Medication [...] This Visit HTN (hypertension) (CMS/HCC) - Primary Please check blood pressure daily and record DASH diet Limit caffeine Take medication as directed Contact office if chest pain, pressure, dizziness, shortness of breath, swelling legs Recommend slow position changes Current meds: imdur, bblocker, aldactone Chronic diastolic heart failure (CMS/HCC) Managed by [facility] Cardiology Current meds: imdur, b dayna, diuretics Chronic atrial fibrillation, unspecified ([facility]/HCC) Current meds: xarelto, b dayna [facility] Cardiology Coronary artery disease 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 pectoris ([facility]) Current meds: statin, imdur, b dayna [facility] Cardiology Nonrheumatic tricuspid valve regurgitation Per [facility] Cardiology mgmt Pulmonary HTN ([facility]) Findings confirmed through heart cath Chronic kidney disease, stage 3b (HCC) ([facility]) Continued monitoring Relevant Medications ferrous sulfate (FeroSul) [...] glycosylated hemoglobin (Hb A1C) docked device (Completed) * Allyssa Baez NP - 05/26/2024 6:15 AM EDTAssociated Problem(s): Chronic diastolic heart failure (CMS/HCC) Managed by [facility] Cardiology Current meds: imdur, b dayna, diuretics * Allyssa Baez NP - 05/26/2024 6:13 AM EDTAssociated Problem(s): Mixed hyperlipidemia (CMS/HCC) On statin therapy Check labs yearly and prn dose changes * Allyssa Baez NP - 05/26/2024 6:12 AM EDTAssociated Problem(s): Type 2 diabetes mellitus without complications No current medications are being taken A1c: 6.3% 05/26/24 * Allyssa Baez NP - 05/26/2024 6:12 AM EDTAssociated Problem(s): Chronic kidney disease, stage 3b (HCC) (CMS/[facility]) Continued monitoring * Allyssa Baez NP - 05/26/2024 6:12 AM EDTAssociated Problem(s): Gastroesophageal reflux disease without esophagitis Recommendations: freq small meals, nothing to eat or drink at least 2 hours prior to bed, limit caffeine, alcohol, as well as spicy foods Meds to limit or avoid if possible: NSAIDS Elevate HOB if possible Current meds: pantoprazole * Allyssa Baez NP - 05/26/2024 6:11 AM EDTAssociated Problem(s): Pulmonary HTN ([facility]) Findings confirmed through heart cath * Allyssa Baez NP - 05/26/2024 6:11 AM EDTAssociated Problem(s): Nonrheumatic tricuspid valve regurgitation Per [facility] Cardiology mgmt * Allyssa Baez NP - 05/26/2024 6:11 AM EDTAssociated Problem(s): HTN (hypertension) (CMS/HCC) Please check blood pressure daily and record DASH diet Limit caffeine Take medication as directed Contact office if chest pain, pressure, dizziness, shortness of breath, swelling legs Recommend slow position changes Current meds: imdur, bblocker, aldactone * Allyssa Baez NP - 05/26/2024 6:10 AM EDTAssociated Problem(s): Coronary artery disease 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 pectoris (CMS/HCC) Current meds: statin, imdur, b dayna [facility] Cardiology * Allyssa Baez NP - 05/26/2024 6:10 AM EDTAssociated Problem(s): Chronic atrial fibrillation, unspecified (CMS/HCC) Current meds: xarelto, b dayna [facility] Cardiology documented in this encounterSamaritan HospitalAoynvxhqsc63-62-6385 Instructions* Patient Instructions* Allyssa Baez NP - 05/26/2024 9:00 AM EDT No dose changes in medications Schedule Medicare Wellness documented in this encounterSamaritan HospitalLwfrxwnhzb98-00-5533 Telephone encounter Note* Telephone Encounter - Allyssa Baez NP - 05/13/2024 12:46 PM EDT Please tell pt that overall her labs are stable With exception of her kidney function which has worsen somewhat. I know cardiology has been adjusting her water pills for her heart failure. We will forward a copy of her kidney function to them to see if they want to make any changes [place] [facility] Cofhofeoky54-01-1981 Miscellaneous Notes* Telephone Encounter - Allyssa Baez NP - 05/13/2024 12:46 PM EDT Please tell pt that overall her labs are stable With exception of her kidney function which has worsen somewhat. I know cardiology has been adjusting her water pills for her heart failure. We will forward a copy of her kidney function to them to see if they want to make any changes [place] documented in this [facility]11-25-[address] [facility] Subjective Jenifer Hernandez is a [...] heart failure (CMS/HCC) Coronary artery disease 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 pectoris History of coronary [...] respond to it. She was admitted to [facility] with decompensated HF in 05/2018. Update [...] function. The right wes (more content not included)...[facility] 01-09-2024 History of Present illness Narrative* Shell Hemphill, JEFFERY - 01/09/2024 2:41 PM ESTAssociated Problem(s): HTN (hypertension) ([facility]) Currently taking Metoprolol 100mg and Isosorbide 30mg Does not check BP at home; Denies orthostatic changes, dizziness, cough, shortness of breath, swelling in extremities. Continue current regimen. Given BP log, advised pt to record BP and bring log back with them to next visit. * Shell Hemphill NP - 01/09/2024 2:41 PM ESTAssociated Problem(s): Other hyperlipidemia (CMS/HCC) Currently taking atorvastatin 20mg Denies any myalgias. Continue current regimen. * Shell Hemphill NP - 01/09/2024 2:41 PM ESTAssociated Problem(s): Stage 3b chronic kidney disease (HCC) (CMS/HCC) eGFR is 32. 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 Likely r/t HF. Pt states she was unaware of this and has never been referred to or seen nephrology in the past. Referral sent to Nephrology in [place]. Pt did not follow up yet. * Shell Hemphill NP - 01/09/2024 2:30 PM EST Images from the original note were not [...] Continue current regimen. CKD: eGFR is 34. 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 Likely r/t HF. Pt states she was unaware of this and has never been referred to or seen nephrology in the past. Referral sent to Nephrology in [place]. Pt did not follow up yet. Review [...] Neurological: Negative for dizziness, tremors, syncope, weakness, light- headedness and headaches. Psychiatric/Behavioral: Negative for decreased concentration and suicidal ideas. The patient is notnervous/anxious. Hematological: Does not bruise/bleed easily. Endocrine: Negative [...] kidney disease (HCC) (CMS/HCC) eGFR is 32. 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 Likely r/t HF. Pt states she was unaware of this and has never been referred to or seen nephrology in the past. Referral sent to Nephrology in [place]. Pt did not follow up yet. documented in this encounterSamaritan [id number] [facility] Subjective Jenifer Hernandez is a 83 y.o. year old female patient being seen for follow-up visit Patient Active Problem List Diagnosis Chronic atrial fibrillation (CMS/HCC) Chronic diastolic congestive heart failure (CMS/HCC) Coronary artery disease 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 pectoris History of coronary [...] , Rfl: ergocalciferol (Vitamin D-2) 1.25 MG (91897 Units) capsule, Vitamin D2 1,250 mcg (50,000 [...] 1/2 TABLETS BY MO (more content not included)...[facility]08-26-2024 History of Present illness Narrative* Shell Hemphill, JEFFERY - 10/14/2023 9:47 AM EDTAssociated Problem(s): Stage 3b chronic kidney disease (HCC) (CMS/HCC) eGFR is 34. 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 Likely r/t HF. Pt states she was unaware of this and has never been referred to or seen nephrology in the past. Referral sent to Nephrology in [place]. Consider adding SLGT-2 today. Will discuss with Spreader Box Operator first. * Shell Hemphill NP - 10/14/2023 9:45 AM EDTAssociated Problem(s): Chronic fatigue Iron deficiency; Taking Ferrous sulfate. Chronic diastolic HF. TSH normal. * Shell Hemphill NP - 10/14/2023 9:45 AM EDTAssociated Problem(s): Hypercholesteremia (CMS/HCC) On Atorvastatin 20mg Denies myalgias; Last lipid panel looks great Continue current regimen. 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 Spironlactone Isosorbide Metoprolol Kidney function is very low, it sales representative of CKD stage 3; Likely r/t HF. Pt states she was unaware of this and has never been referred to or seen nephrology in the past. Referral sent to Nephrology in [place]. Consider adding SLGT-2 today. Will discuss with Spreader Box Operator first. * Shell Hemphill NP - 10/14/2023 9:42 AM EDTAssociated Problem(s): HTN (hypertension) (CMS/HCC) Metoprolol 100mg and Isosorbide 30mg Denies orthostatic changes Denies edema Does not check BP at home; Given BP log today in office. Educated on accurate BP measuring steps. Advised pt to check once per day in the afternoon and bring back to next visit. Continue medications as directed. * Shell Hemphill, JEFFERY - 10/14/2023 9:00 AM EDT Images from the original note were not included. Subjective Patient ID: Jenifer Hernandez is a 83 y.o. female who presents for Follow-up (NEW MEDS FROM CELL ATTENDANT). HPI HTN: Metoprolol 100mg and Isosorbide 30mg Denies orthostatic changes Denies edema Does not check BP at home; Given BP log today in office. Educated on accurate BP measuring steps. Advised pt to check once per day in the afternoon and bring back to next visit. HF: Follows with Cardiology; [place]. Spironlactone Isosorbide Metoprolol Kidney function is very low, it sales representative of CKD stage 3; Likely r/t HF. Pt states she was unaware of this and has never been referred to or seen nephrology in the past. Referral sent to Nephrology in [place]. Consider adding SLGT-2 today. Will discuss with Spreader Box Operator first. Fatigue: Iron deficiency; Taking Ferrous sulfate. [...] ALBUMIN GLOBULIN RATIO 0.8 0.9 Resulting Agency [facility] Narr[facility] Review of Systems Constitutional: [...] Neurological: Negative for dizziness, tremors, syncope, weakness, light- headedness and headaches. Psychiatric/Behavioral: Negative for decreased concentration and suicidal ideas. The patient is notnervous/anxious. Hematological: Does not bruise/bleed easily. Endocrine: Negative [...] Items Addressed This Visit HTN (hypertension) ([facility]) Metoprolol 100mg and Isosorbide 30mg Denies orthostatic changes Denies edema Does not check BP at home; Given BP log today in office. Educated on accurate BP measuring steps. Advised pt to check once per day in the afternoon and bring back to next visit. Continue medications as directed. Hypercholesteremia ([facility]) - Primary On Atorvastatin 20mg Denies myalgias; Last lipid panel looks great Continue current regimen. Chronic fatigue Iron deficiency; Taking Ferrous sulfate. Chronic diastolic HF. TSH normal. Hypertensive heart disease with heart failure ([facility]) Follows with Cardiology; [place]. Spironlactone Isosorbide Metoprolol Kidney function is very low, it sales representative of CKD stage 3; Likely r/t HF. Pt states she was unaware of this and has never been referred to or seen nephrology in the past. Referral sent to Nephrology in [place]. Consider adding SLGT-2 today. Will discuss with Spreader Box Operator first. Relevant Medications spironolactone (Aldactone) 25 MG tablet Other Relevant Orders Ambulatory referral to Nephrology Stage 3b chronic kidney disease (HCC) ([facility]) eGFR is 34. 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 Likely r/t HF. Pt states she was unaware of this and has never been referred to or seen nephrology in the past. Referral sent to Nephrology in [place]. Consider adding SLGT-2 today. Will discuss with Spreader Box Operator first. Relevant Orders Ambulatory referral to Nephrology Other Visit Diagnoses Cerumen debris on tympanic membrane of both ears Relevant Medications carbamide peroxide (Debrox) 6.5 % otic solution documented in this encounterSamaritan HospitalTualgeyubc05-15-4544 Instructions* Patient Instructions* Shell Hemphill NP - 10/14/2023 9:00 AM [...] and dinner. Avoid snacking. Avoid eating after 5/6pm. Daily protein GOAL 35% of your intake; 30g per meal. Daily calorie GOAL 1,800-2,000 per day. Consider tracking your food intake on [employer] [employer]iness[employer] or LoseIt Water: Increase water intake; GOAL [...] of sleep per night. documented in this encounterSamaritan HospitalBbhpccjlbx53-33-3095 NoteOPERATIVE NOTE OPERATION DATE: 01/18/2022 SURGEON: Petr Merlos [...] ensuring mobility, phacoemulsification was performed in a txmagdv-wzr-htsgti-type fashion. After all nuclear material had been [...] follow up the following day for postoperative care.[facility] HospitalZqnaounv52-64-6761 NoteHISTORY AND PHYSICAL EXAMINATION Date:01/17/2022 HISTORY: The patient [...] risk and go forward with her elective procedure.[facility] [id number] NoteHISTORY AND PHYSICAL EXAMINATION Date:12/20/2021 HISTORY: Patient is [...] risk and go forward with her elective procedure.[facility] [id number] NoteOPERATIVE NOTE OPERATION DATE: 12/21/2021 SURGEON: Petr Merlos [...] ensuring mobility, phacoemulsification was performed in a umsedep-leo-tjcicv-type fashion. After all nuclear material had been [...] follow up the following day for postoperative care.[facility]* Diagnosis Hypercholesteremia (CMS/HCC)- Primary Pure hypercholesterolemia documented in this encounter [facility] HealthcareEvaluation note* Diagnosis Primary hypertension (CMS/HCC)- Primary [...] aortocoronary bypass status Coronary artery disease 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 pectoris (CMS/HCC) Chronic atrial [...] disease (HCC) (CMS/HCC) documented in this encounter [facility] HealthcareEvaluation note* Diagnosis Hypercholesteremia (CMS/HCC)- Primary Pure hypercholesterolemia Hypertensive heart disease with heart failure (CMS/HCC) Unspecified hypertensive heart disease with heart failure Hypertension, unspecified type (CMS/HCC) Cerumen debris on tympanic membrane of both ears Stage 3b chronic kidney disease (HCC) (CMS/HCC) Chronic fatigue Other malaise and fatigue documented in this encounter [facility] HealthcareEvaluation note* Diagnosis Primary hypertension (CMS/HCC)- Primary [...] aortocoronary bypass status Coronary artery disease 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 pectoris (CMS/HCC) Chronic atrial [...] diastolic heart failure documented in this encounter [facility] HealthcareEvaluation note* Diagnosis Primary hypertension (CMS/HCC)- Primary [...] aortocoronary bypass status Coronary artery disease 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 pectoris (CMS/HCC) Chronic atrial [...] (CMS/HCC) Pure hypercholesterolemia documented in this encounter [facility] HealthcareEvaluation note* Diagnosis Primary hypertension (CMS/HCC)- [...] aortocoronary bypass status Coronary artery disease 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 pectoris (CMS/HCC) Chronic atrial [...] 3b (HCC) (CMS/HCC) Coronary artery disease 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 pectoris (CMS/HCC) Nonrheumatic tricuspid valve regurgitation Pulmonary HTN (CMS/HCC) Gastroesophageal reflux disease without esophagitis Esophageal reflux Mixed hyperlipidemia (CMS/HCC) Mixed hyperlipidemia Chronic diastolic heart failure (CMS/HCC) Chronic diastolic heart failure documented in this encounter [facility] HealthcareEvaluation note* Diagnosis Primary hypertension (CMS/HCC)- Primary [...] aortocoronary bypass status Coronary artery disease 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 pectoris (CMS/HCC) Chronic atrial [...] 3b (HCC) (CMS/HCC) Coronary artery disease 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 pectoris (CMS/HCC) Nonrheumatic tricuspid valve regurgitation Pulmonary HTN (CMS/HCC) Gastroesophageal reflux disease without esophagitis Esophageal reflux Mixed hyperlipidemia (CMS/HCC) Mixed hyperlipidemia Chronic diastolic heart failure (CMS/HCC) Chronic diastolic heart failure Hypercholesteremia (CMS/HCC) Pure hypercholesterolemia documented in this encounter [facility] HealthcareEvaluation note* Diagnosis Primary hypertension (CMS/HCC)- Primary [...] aortocoronary bypass status Coronary artery disease 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 pectoris (CMS/HCC) Chronic atrial [...] 3b (HCC) (CMS/HCC) Coronary artery disease 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 pectoris (CMS/HCC) Nonrheumatic tricuspid valve regurgitation Pulmonary HTN (CMS/HCC) Gastroesophageal reflux disease without esophagitis Esophageal reflux Mixed hyperlipidemia (CMS/HCC) Mixed hyperlipidemia Chronic diastolic heart failure (CMS/HCC) Chronic diastolic heart failure Encounter for subsequent annual wellness visit (AWV) in Medicare patient- Primary Chronic atrial fibrillation, unspecified (CMS/HCC) Chronic diastolic heart failure (CMS/HCC) Chronic diastolic heart failure Coronary artery disease 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 pectoris (CMS/HCC) Primary hypertension (CMS/HCC) Unspecified essential hypertension Chronic kidney disease, stage 3b (HCC) ([facility]) 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) Type II or unspecified type diabetes mellitus [...] aortocoronary bypass status Coronary artery disease 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 pectoris Chronic atrial fibrillation, [...] stage 3b (CMS-HCC) Coronary artery disease 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 pectoris Nonrheumatic tricuspid valve regurgitation Pulmonary HTN (HCC) Gastroesophageal reflux disease without esophagitis Esophageal reflux Mixed hyperlipidemia Mixed hyperlipidemia Chronic diastolic heart failure (HCC) Chronic diastolic heart failure Encounter for subsequent annual wellness visit (AWV) in Medicare patient- Primary Chronic atrial fibrillation, unspecified (HCC) Chronic diastolic heart failure (HCC) Chronic diastolic heart failure Coronary artery disease 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 pectoris Primary hypertension Unspecified [...] Date Resolution Status Admit Date Hyperlipidemia, mixed acuteSeptember 2024 1:51pm [facility] Work Phone: Reason for referral (narrative)* Consultation (Routine) - Pending ReviewSpecialtyDiagnoses / ProceduresReferred By Contact Referred To ContactNephrology Diagnoses Hypertensive heart disease with heart failure (CMS/HCC) Stage 3b chronic kidney disease (HCC) ([facility]) Procedures [place] OFFICE/OUTPATIENT NEW HIGH MDM 60 MINUTES Shell Hemphill NP [address] [place] [address] Jimmy Wilde MD [address] [place] [address] Referral IDStatusReasonStart DateExpiration DateVisits RequestedVisits [id number] Review Specialty Services Required / Scheduling Instructions Please include OV note from today 10/13 [facility] HealthcareReason for referral (narrative)No reason for referral information availableParkview Health Bryan Hospital Work Phone: Summary Purpose Family History No Family History Records Found Relationship Condition Age at Onset Recorded Date/T christian mother Diabetes mellitus Unknown Heart diseaseUnknownHypertensionUnknownfatherHeart diseaseUnknownsonDiabetes mellitusUnknown Advance Directives No Advanced Directives Records Found Advance Directive Response Recorded Date/ Time Advance Directives No June 12 019 7:51am Hospital Course Note MR#: [id number] [facility] Pt. Name: Jenifer Hernandez Admitted: 12/17/2018 Discharged: [...] (more content not included)... Note MR#: [id number] [facility] Pt. Name: Jenifer Hernandez Admitted: 01/05/2019 Discharged: 01/14/2019 Date of : 1940 Physician: Amy Head MD DISCHARGE SUMMARY PRIMARY CARE PHYSICIAN: Edu Odonnell. ADMITTING DIAGNOSES: 1. Acute kidney injury on chronic kidney disease. 2. Drug-induced symptomatic severe bradycardia with hemodynamic compromise. DISCHARGE DIAGNOSES: 1. Drug-induced symptomatic severe bradycardia with hemodynamic compromise. 2. 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 Mukor-wr-lxcgueg biventricular systolic and diastolic heart failure exacerbation. [...] not included)... Note MR#: [id number] [facility] Pt. Name: Jenifer Hernandez Surgery Date: 12/19/2018 Room #: [id number] Date of : 1940 PROCEDURE NOTE ATTENDING: [...] Procedure Findings Note MR#: [id number] [facility] Pt. Name: Jenifer Hernandez Surgery Date: 12/19/2018 Room #: [id number] Date of : 1940 PROCEDURE NOTE ATTENDING: [...] and content) DATE CREATED AUTHOR 04/10/2019 [facility] DATE CREATED AUTHOR AUTHOR'S ORGANIZ ATION 05/07/2021 [facility] DATE CREATED AUTHOR AUTHOR'S ORGANIZ ATION 02/07/2022 [facility] DATE CREATED AUTHOR AUTHOR'S ORGANIZ ATION 07/24/2024 [facility] DATE CREATED AUTHOR AUTHOR'S ORGANIZ ATION 11/26/2024 [facility] Reason for Visit (unrecogniz ed section and content) ReasonOnset DateCommentsMed Zvbwgd1311/25/2023easonCommentsFollow-upReason CommentsFollow-upNEW MEDS FROM CARDIOLOGISTReasonOnset DateCommentsMed Refill 02/20/2024ReasonCommentsMed RefillReasonCommentsHypertensionReasonOnset Date CommentsMed Yniwug1906/22/2024ReasonCommentsMedicare Annual Wellness Visit Initial ReasonOnset DateCommentsMed Dmqmfh9607/30/2024 Care Teams (unrecognized sec tion and content) Team MemberRelationshipSpecialtyStart DateEnd Date Keith Foley MD [address] [place] [address] [facility] Shell Hemphill NP [address] [place] [address] Nurse Pract[facility]erJeff [facility]10/02/23Team MemberRelationshipSpecialtyStart DateEnd Date Keith Foley MD [address] [place] [address] PCP - [facility]10/02/23 Shell Hemphill NP [address] [place] [address] [facility]10/02/23Team MemberRelationshipSpecialtyStart DateEnd Date Keith Foley MD [address] [place] [address] PCP - [facility]10/02/23 Shell Hemphill NP [address] [place] [address] [facility]10/02/23Team MemberRelationshipSpecialtyStart DateEnd Date Keith Foley MD [address] [place] [address] [facility]CP - [facility]10/02/23 Shell Hemphill, JEFFERY [address] [place] [address] Nurse [facility]10/02/23Team MemberRelationshipSpecialtyStart DateEnd Date Keith Foley MD [address] [place] [address] PCP - [facility]10/02/23 Shell Hemphill, JEFFERY [address] [place] [address] Nurse [facility]10/02/23Team MemberRelationshipSpecialtyStart DateEnd Date Keith Foley MD [address] [place] [address] PCP - [facility]10/02/23 Shell Hemphill, JEFFERY [address] [place] [address] Nurse [facility]10/02/23Team MemberRelationshipSpecialtyStart DateEnd Date Keith Foley MD [address] [place] [address] PCP - [facility]10/02/23 Shell Hemphill, JEFFERY [address] [place] [address] [facility]10/02/23Team MemberRelationshipSpecialtyStart DateEnd Date Keith Foley MD [address] [place] [address] PCP - [facility]10/02/23 Shell Hemphill NP [address] [place] [address] [facility]10/02/23Team MemberRelationshipSpecialtyStart DateEnd Date Keith Foley MD [address] [place] [address] PCP - [facility]10/02/23 Shell Hemphill NP [address] [place] [address] [facility]10/02/23Team MemberRelationshipSpecialtyStart DateEnd Date Keith Foley MD [address] [place] [address] PCP - [facility]10/02/23 Shell Hemphill NP [address] [place] [address] [facility]10/02/23Team MemberRelationshipSpecialtyStart DateEnd Date Keith Foley MD [address] [place] [address] PCP - [facility]10/02/23 Shell Hemphill NP [address] [place] [address] Nurse [facility]10/02/23Team MemberRelationshipSpecialtyStart DateEnd Date Keith Foley MD [address] [place] [address] PCP - [facility]10/02/23 Shell Hemphill NP [address] [place] [address] Nurse [facility]10/02/23Team MemberRelationshipSpecialtyStart DateEnd Date Keith Foley MD [address] [place] [address] PCP - [facility]10/02/23 Shell Hemphill NP [address] [place] [address] Nurse [facility]10/02/23Team MemberRelationshipSpecialtyStart DateEnd Date Keith Foley MD [address] [place] [address] PCP - [facility]10/02/23 Shell Hemphill NP [address] [place] [address] [facility]10/02/23Team MemberRelationshipSpecialtyStart DateEnd Date Keith Foley MD [address] [place] [address] PCP - [facility]10/02/23 Shell Hemphill NP [address] [place] [address] Nurse Pract[facility]erJeff [facility]10/02/23Team MemberRelationshipSpecialtyStart DateEnd Date Keith Foley MD [address] [place] [address] PCP - [facility]10/02/23 Shell Hemphill NP [address] [place] [address] Nurse [facility]Jeff [facility]10/02/23 Team Status: Active Member Role Status Dates Joi Guajardo DO Primary Care Provider Active Team Status: Inactive Member Role Status Dates Joi Guajardo DO Primary Care Provider Active S tart: November 12, 2024 End: November 12, 2024Jestephanie Guajardo DOAttending ProviderActiveStart: November 12, 2024 End: November 12, 2024 [...] BE BASED ON THE PRIMARY CLINICAL RECORDS. [facility] [employer] [facility]. provides no warranty or guarantee of the accuracy or completeness of information in this document.
[2024-12-15 15:14] LABS: Anion Gap 11.4; Blood Urea Nitrogen 48.0 mg/dL (7.0-18.0); Calcium 9.3 mg/dL (8.5-10.1); Carbon Dioxide 31.6 mmol/L (21.0-32.0); Chloride 100 mmol/L (98-107); Estimated GFR (African America 35 (>=60 mL/min/1.73m^2); Estimated GFR (Non-African Ame 28 (>=60 mL/min/1.73m^2); Glucose 132 mg/dL (74-106); Potassium 4.0 mmol/L (3.5-5.1); Sodium 139 mmol/L (136-145)
== END 2024-12-15 13:44 | disposition home or self-care (01) ==
LOC: LAB 13:45
PROVIDERS: PCP Family Medicine; Visit Provider Internal Medicine Interventional Cardiology
DX: I50.32 Chronic diastolic (congestive) heart failure (principal); I27.20 Pulmonary hypertension, unspecified
CPT/HCPCS: 36415; 80048